=== PATIENT | female | born 1955 | race Asian ===

== ENCOUNTER 2018-04-02 07:26 | Outpatient (CLI) | payer OTHER | END 2018-04-02 07:27 | disposition short-term general hospital (02) | LOC: EMS 07:26 | PROVIDERS: ATTEND Surgery | DX: R07.9 Chest pain, unspecified (principal) | CPT/HCPCS: A0425; A0427 ==

== ENCOUNTER 2018-07-23 20:15 | Outpatient (CLI) | payer OTHER | END 2018-07-23 20:16 | disposition critical access hospital (66) | LOC: EMS 20:15 | PROVIDERS: ATTEND Surgery | DX: R29.810 Facial weakness (principal); R53.1 Weakness | CPT/HCPCS: A0425; A0427 ==

== ENCOUNTER 2018-07-23 20:36 | Emergency (ER) | payer OTHER ==
--- NOTE | 2018-07-23 20:39 | ED Physician Documentation ---
PD HPI FOCAL NEURO - Stated complaint Stated Complaint: STROKE - Chief complaint Chief Complaint: Neuro - History obtained from History obtained from: Patient, Family - History of Present Illness Timing - onset: Enter time (20:00), Today Timing - details: Abrupt onset Time of symptom onset unknown: Time of onset unknown (20:00) Severity of deficit: Moderate Weakness: Face, Arm, Hand, Leg, Foot, Left Associated symptoms: Fall. No: Headache, Nausea / vomiting, Seizure, Chest pain, Neck pain, Back pain Contributing factors: negative: Anticoagulated, Atrial fibrillation Baseline status: positive: A&OX3, ambulatory, indep Recently seen: Not recently seen - Additional information Additional information: boyfriend was getting ready for bed with patient; patient went into adjacent room and boyfriend heard the sound of a chair being knocked over. He immediately checked on patient and found her on the floor next to the chair. This was at 8 PM, and she was baseline just 1-2 minutes prior. She was awake and responding but had left-sided weakness (arm, leg) including left facial droop and thus he called 911. Review of Systems Constitutional: reports: Reviewed and negative Eyes: reports: Reviewed and negative Ears: reports: Reviewed and negative Nose: reports: Reviewed and negative Throat: reports: Reviewed and negative Cardiac: reports: Reviewed and negative Respiratory: reports: Reviewed and negative GI: reports: Reviewed and negative : reports: Reviewed and negative Skin: reports: Reviewed and negative Musculoskeletal: reports: Reviewed and negative Neurologic: reports: Focal weakness, Difficulty speaking. denies: Generalized weakness, Numbness, Syncope PD PAST MEDICAL HISTORY - Past Medical History Past Medical History: Yes Cardiovascular: Hypertension, High cholesterol - Past Surgical History Past Surgical History: Yes Cardiovascular: Pacemaker - Present Medications Home Medications: Ambulatory Orders Medication Instructions Recorded Confirmed Aspirin Chewable [St Kit 81 mg PO DAILY 06/25/16 06/25/16 Aspirin] Atorvastatin Calcium 20 mg PO 06/25/16 Furosemide [Lasix] 20 mg PO DAILY 06/25/16 06/25/16 Magnesium Oxide [Magnesium] 1 cap PO DAILY 07/23/18 07/23/18 Metoprolol Succinate [Toprol Xl] 1 tab PO BID 07/23/18 07/23/18 Omeprazole 1 tab PO DAILY 07/23/18 07/23/18 - Allergies Allergies/Adverse Reactions: Allergies Allergy/AdvReac Type Severity Reaction Status Date / Time morphine Allergy Rash Verified 07/23/18 20:52 sulfamethoxazole Allergy Rash Verified 07/23/18 20:52 [From ] trimethoprim [From ] Allergy Rash Verified 07/23/18 20:52 - Living Situation Living Situation: reports: With spouse/s.o. Living Arrangement: reports: At home - Social History Does the pt smoke?: No PD ED PE NORMAL - Vitals Vital signs reviewed: Yes - General General: Alert and oriented X 3, No acute distress, Well developed/nourished - HEENT HEENT: PERRL, Other (small, midline forehead hematoma without bony step off or tenderness to palpation) - Neck Neck: No bony TTP - Cardiac Cardiac: RRR, No murmur - Respiratory Respiratory: No respiratory distress, Clear bilaterally - Abdomen Abdomen: Soft, Non tender - Derm Derm: Normal color, Warm and dry - Extremities Extremities: No edema - Neuro Eye Opening: Spontaneous Motor: Obeys Commands Verbal: Oriented GCS Score: 15 PD ED PE EXPANDED - HEENT HEENT: Gaze palsy - Neuro Neuro: Weakness, Left face, LUE, LLE, CN deficit (right gaze preference; cannot track beyond midline to left), PERRL, Dysarthria. No: Dyscongugate gaze NIHSS - Time Time: 21:00 - Level of Consciousness Level of consciousness: (0) Alert, Keenly responsive LOC Questions: (0) Answers both Q's correct LOC Commands: (0) Performs both correctly - Gaze Best Gaze: (1) Partial gaze palsy - Visual Visual: (1) Partial hemianopia - Facial Palsy Facial Palsy: (2) Partial paralysis - Motor Arms (both separate) Motor Arm (right): (0) No drift Motor Arm (left): (3) No effort against gravity - Motor Legs (both separate) Motor Leg (right): (0) No drift Motor Leg (left): (3) No effort against gravity - Limb Ataxia Limb Ataxia: (1) Present in 1 limb - Sensory Sensory: (0) Normal - Best Language Best Language: (0) No aphasia - Dysarthria Dysarthria: (1) [id number] dysarthria - Extinction and Inattention (formally neg Extinction and inattention: (1) Visual,tactile,auditory,spatial, or personal inattention - Total Score/Results Total Score/Result: 13 Results - Vitals Vitals: Vital Signs - 24 hr 07/23/18 07/23/18 07/23/18 20:45 21:04 21:42 Temperature 36.6 C Heart Rate 60 60 60 Respiratory 20 17 16 Rate Blood Pressure 131/62 H 130/74 140/71 H O2 Saturation 99 98 98 07/23/18 21:47 Temperature Heart Rate 63 Respiratory 16 Rate Blood Pressure O2 Saturation 94 Oxygen O2 Source Room air - EKG (time done) No standard instances Rate: Rate (enter#) (60) Rhythm: Paced [place]: LAD Ischemia: Normal ST segments - Labs Labs: Laboratory Tests 07/23/18 07/23/18 07/23/18 20:45 20:45 20:45 WBC 11.5 H RBC 4.66 Hgb 14.7 Hct 45.6 MCV 97.9 MCH 31.4 H MCHC 32.1 RDW 14.0 Plt Count 171 MPV 8.1 Neut # (Auto) Not Reportable Lymph # (Auto) Not Reportable [place] # (Auto) Not Reportable Eos # (Auto) Not Reportable Baso # (Auto) Not Reportable Absolute Nucleated RBC Not Reportable Total Counted 100 Band Neuts % (Manual) 0 Reactive Lymphs % (Man) 1 Abnorm Lymph % (Manual) 0 Metamyelocytes % 1 H Nucleated RBC % Not Reportable Neutrophils # (Manual) 4.6 Lymphocytes # (Manual) 6.2 H Monocytes # (Manual) 0.6 Eosinophils # (Manual) 0.0 Basophils # (Manual) 0.0 Differential Comment MANUAL DIFFERENTIAL Platelet Estimate NORMAL (130-450,000) Platelet Morphology NORMAL APPEARANCE RBC Morph Micro Appear NORMAL APPEARANCE PT 11.7 INR 1.0 APTT 27.5 Sodium 138 Potassium 3.4 L Chloride 103 Carbon Dioxide 26 Anion Gap 9.0 BUN 25 H Creatinine 1.0 Estimated GFR (MDRD) 56 L Glucose 121 H Calcium 9.1 Troponin I 07/23/18 20:45 WBC RBC Hgb Hct MCV MCH MCHC RDW Plt Count MPV Neut # (Auto) Lymph # (Auto) [place] # (Auto) Eos # (Auto) Baso # (Auto) Absolute Nucleated RBC Total Counted Band Neuts % (Manual) Reactive Lymphs % (Man) Abnorm Lymph % (Manual) Metamyelocytes % Nucleated RBC % Neutrophils # (Manual) Lymphocytes # (Manual) Monocytes # (Manual) Eosinophils # (Manual) Basophils # (Manual) Differential Comment Platelet Estimate Platelet Morphology RBC Morph Micro Appear PT INR APTT Sodium Potassium Chloride Carbon Dioxide Anion Gap BUN Creatinine Estimated GFR (MDRD) Glucose Calcium Troponin I < 0.04 - Rads (name of study) CT head Radiology: Prelim report reviewed, See rad report chest xray Radiology: Prelim report reviewed, See rad report PD MEDICAL DECISION MAKING - ED course Complexity details: reviewed results, re-evaluated patient, considered dif ferential, d/w patient, d/w family ED course: D/W Dr. Foley (neurology at [facility]). She recommends alteplase and I agree with this recommendation. Telestroke not performed, as the presentation and CT result are strongly s/o thrombotic CVA and telestroke would likely delay treatment and not alter course of action. I recontacted Dr. Foley when I noticed forehead hematoma that I did not see on initial exam; it is visible on CT, but there is no evidence of intracranial bleeding. She recommends proceeding with tPA (alteplase) and I agree with this recommendation. Shortly before patient left ED with airlift crew, left facial swelling was noted. Neurologic exam and mental status remain unchanged. The RN had attempted to place a pressure dressing on the forehead, but apparently it would not stay in place and gauze was placed with tape. I was able to place MICHAEL wrap that applied pressure to the forehead hematoma. - Critical Care Time(min): 60 Time Includes: Direct patient care, Reassess patient, Document care, Coordinate care, Medical consult, See progress note Data interpretation: Labs, Pulse ox, CXR, See progress note Procedures included in critical care time: See progress note Procedures excluded from critical care time: See progress note - TPA CVA checklist Inclusion crititeria: positive: Sig neuro deficit, CT no bleed, Onset know < 4.5 hr Absolute contraindications: negative: SBP>185 DBP>110 s/p tx, CT shows bleed, CT shows major est CVA, Platelets <100K, PTT > 40, INR >1.7, Known bleeding disorder, Surgery/trauma < 15 days, Seizure at onset, Internal bleed < 22 days, Brain/spine surg < 3 m, Head trauma < 3 m, CVA < 3 months, Any hx ICH, Any hx brain aneurysm, Any hx brain AVM, Any hx brain tumor, Suspect SAH Relative contraindications: negative: Too severe (NIHSS>22), Too mild, Rapid improvement, Glusose <50 >400, Life expectancy < 1 yr, Severe comorbid illness, Bacterial endocarditis, Severe hepatic dz, Severe renal dz, Hemorrhagic eye condition, Septic thrombophlebitis, Infected AV shunt, On coumadin, , Advanced age Departure - Departure Disposition: 02 Transfer Acute Care Hosp Clinical Impression: Cerebrovascular accident (CVA) Qualifiers: CVA mechanism: thrombosis Precerebral and cerebral artery: middle cerebral artery Laterality of affected vessel: right Qualified Code(s): I63.311 - Ce rebral infarction due to thrombosis of right middle cerebral artery Condition: Serious Discharge Date/Time: 07/23/18 22:45
[2018-07-23 20:53] LABS: BASOPHILS % (AUTO) 0.4 %; EOSINOPHILS % (AUTO) 2.4 %; HGB - HEMOGLOBIN 14.7 g/dL (12.0-16.0); LYMPHOCYTES % (AUTO) 50.3 %; MEAN CORPUSCULAR HEMOGLOBIN 31.4 pg (27.0-31.0); MEAN CORPUSCULAR HGB CONC 32.1 g/dL (32.0-36.0); MEAN CORPUSCULAR VOLUME 97.9 fL (81.0-99.0); MEAN PLATELET VOLUME 8.1 fL (7.9-10.8); MONOCYTES % (AUTO) 6.1 %; NEUTROPHILS % (AUTO) 40.8 %; PLT - PLATELET COUNT 171 10^3/uL (130-450); RED BLOOD COUNT 4.66 10^6/uL (4.20-5.40); WHITE BLOOD COUNT 11.5 x10^3/uL (4.8-10.8)
[2018-07-23 20:55] LABS: ABNORMAL LYMPHS % (MANUAL) 0 %; BAND NEUTROPHILS % (MANUAL) 0 %
[2018-07-23 20:57] LABS: PT - PROTHROMBIN TIME 11.7 secs (9.9-12.6)
[2018-07-23 21:03] LABS: CALCIUM 9.1 mg/dL (8.5-10.3)
--- NOTE | 2018-07-23 21:05 | CT Report ---
Reason: left-sided weakness Procedure Date: 07/23/2018 Accession Number: [id number] / [id number] Procedure: CT - Head W/O Stroke Protocol CPT Code: FULL RESULT: EXAM: CT HEAD WITHOUT CONTRAST. EXAM DATE: 07/23/2018 08:53 PM. CLINICAL HISTORY: Left-sided weakness. COMPARISON: Head 06/09/2007 8:15 AM. TECHNIQUE: Multiaxial CT images were obtained from the foramen magnum to the vertex. Reformats: Sagittal and coronal. IV contrast: None. In accordance with CT protocol optimization, one or more of the following dose reduction techniques were utilized for this exam: automated exposure control, adjustment of mA and/or KV based on patient size, or use of iterative reconstructive technique. FINDINGS: Parenchyma: 3 mm diameter linear high density in the area of the M1 segment right middle cerebral artery. No intraparenchymal hemorrhage. No evidence of mass, midline shift, or CT findings of acute infarction. Arias-white differentiation is distinct. Extraaxial Spaces: Normal for age. No subdural or epidural collections identified. Ventricles: Normal in size and position. Sinuses and Orbits: Imaged paranasal sinuses, orbits, and mastoids show no significant abnormality. Bones: No evidence of fracture or calvarial defect. Other: Central forehead edema. IMPRESSION: Possible acute thrombus within the M1 segment right middle cerebral artery. Recommend further evaluation with head and neck CTA. RADIA The above findings were discussed with Severiano Mayorga by Dr. Ro Gold at 21:03 hrs on 07/23/18. ADDENDUM: 07/23/18 21:[address] Natacha Foley at 2116, 07/23/2018.
--- NOTE | 2018-07-23 21:10 | XRAY Report ---
Reason: chest pain Procedure Date: 07/23/2018 Accession Number: [id number] / [id number] Procedure: XR - Chest 1 View X-Ray CPT Code: 69656 FULL RESULT: EXAM: CHEST RADIOGRAPHY EXAM DATE: 07/23/2018 08:58 PM. CLINICAL HISTORY: Chest pain. COMPARISON: None. TECHNIQUE: 1 view. FINDINGS: Lungs/Pleura: No focal opacities evident. No pleural effusion. No pneumothorax. Mediastinum: Cardiomegaly. Left subclavian 2-lead pacemaker. Other: None. IMPRESSION: Cardiomegaly, but no evidence of acute cardiopulmonary disease. RADIA
[2018-07-23] MEDS ORDERED: ALTEPLASE 100 MG in WATER FOR INJECTION,STERILE 100 ML IV STA (21:16)
[2018-07-23] MEDS ORDERED: ALTEPLASE 100 MG VIAL ONE (21:25)
[2018-07-23 21:33] LABS: DIFFERENTIAL COMMENT MANUAL DIFFERENTIAL; LYMPHOCYTES # (MANUAL) 6.2 10^3/uL (1.5-3.5); LYMPHOCYTES % (MANUAL) 53 %; METAMYELOCYTES % (MANUAL) 1 %; MONOCYTES # (MANUAL) 0.6 10^3/uL (0.0-1.0); NEUTROPHILS # (MANUAL) 4.6 10^3/uL (1.5-6.6); NEUTROPHILS % (MANUAL) 40 %; PLATELET ESTIMATE, MANUAL NORMAL (130-450,000) (NORMAL); PLATELET MORPHOLOGY NORMAL APPEARANCE (NORMAL); RBC MORPHOLOGY (MULTIPLE) NORMAL APPEARANCE (NORMAL)
[2018-07-23 21:44] VITALS: BP 140/71
== END 2018-07-23 22:45 | disposition short-term general hospital (02) ==
LOC: EDUNIT# → ED 20:36
DX: I63.311 Cerebral infarction due to thrombosis of right middle cerebral artery (principal); S00.83XA Contusion of other part of head, initial encounter; W18.30XA Fall on same level, unspecified, initial encounter; R94.31 Abnormal electrocardiogram [ECG] [EKG]; I10 Essential (primary) hypertension; Z95.0 Presence of cardiac pacemaker; Z79.82 Long term (current) use of aspirin
CPT/HCPCS: 36415; 70450; 71045; 80048; 84484; 85025; 85610; 85730; 93005; 96365; 99291; J2997; 99285

== ENCOUNTER 2018-09-23 09:57 | Emergency (ER) | payer OTHER ==
[2018-09-23 10:43] LABS: BASOPHILS % (AUTO) 0.7 %; EOSINOPHILS # (AUTO) 0.1 10^3/uL (0.0-0.7); EOSINOPHILS % (AUTO) 1.6 %; HGB - HEMOGLOBIN 13.9 g/dL (12.0-16.0); LYMPHOCYTES # (AUTO) 2.6 10^3/uL (1.5-3.5); LYMPHOCYTES % (AUTO) 38.3 %; MEAN CORPUSCULAR HEMOGLOBIN 32.6 pg (27.0-31.0); MEAN CORPUSCULAR HGB CONC 33.4 g/dL (32.0-36.0); MEAN CORPUSCULAR VOLUME 97.7 fL (81.0-99.0); MEAN PLATELET VOLUME 7.8 fL (7.9-10.8); MONOCYTES # (AUTO) 0.5 10^3/uL (0.0-1.0); MONOCYTES % (AUTO) 7.6 %; NEUTROPHILS # (AUTO) 3.5 10^3/uL (1.5-6.6); NEUTROPHILS % (AUTO) 51.8 %; PLT - PLATELET COUNT 200 10^3/uL (130-450); RED BLOOD COUNT 4.28 10^6/uL (4.20-5.40); RED CELL DISTRIBUTION WIDTH 14.7 % (12.0-15.0); WHITE BLOOD COUNT 6.8 x10^3/uL (4.8-10.8)
[2018-09-23 10:45] LABS: BILIRUBIN,URINE NEGATIVE (NEGATIVE); GLUCOSE, URINE (UA) 100 mg/dL (NEGATIVE); KETONES,URINE (UA) TRACE mg/dL (NEGATIVE); LEUKOCYTE ESTERASE, URINE NEGATIVE (NEGATIVE); NITRITE,URINE NEGATIVE (NEGATIVE); OCCULT BLOOD,URINE NEGATIVE (NEGATIVE); PROTEIN,URINE NEGATIVE (NEGATIVE); UROBILINOGEN,URINE 0.2 (NORMAL) E.U./dL (NORMAL)
[2018-09-23 10:47] LABS: CLARITY,URINE CLEAR (CLEAR)
[2018-09-23] MEDS ORDERED: KETOROLAC 30 MG/ML VIAL IVP STA (10:48)
[2018-09-23 10:56] LABS: ALBUMIN 4.3 g/dL (3.2-5.5); ALBUMIN/GLOBULIN RATIO 1.4 (1.0-2.2); BILIRUBIN,TOTAL 0.7 mg/dL (0.2-1.0); CALCIUM 9.5 mg/dL (8.5-10.3); CREATININE 0.6 mg/dL (0.4-1.0); TOTAL PROTEIN 7.4 g/dL (6.7-8.2)
[2018-09-23] MEDS ORDERED: IOVERSOL 320 100 ML VIAL IVP ONE ×2 (10:56→11:59)
--- NOTE | 2018-09-23 11:03 | ED Physician Documentation ---
PD HPI ABD PAIN - Stated complaint Stated Complaint: ABD PX - Chief complaint Chief Complaint: Abd Pain - History obtained from History obtained from: Patient, Family - History of Present Illness Timing - onset: How many weeks ago (1) Timing - duration: Weeks (1) Timing - details: Gradual onset Pain level max: 6 Pain level now: 4 Quality: Aching, Pain Location: LLQ Radiation: Other (non-radiating) Improved by: Laying still Worsened by: Moving, Palpation Associated symptoms: Constipation. No: Fever, Nausea, Vomiting, Hematemesis, Diarrhea, Melena, Hematochezia Similar symptoms before: Diagnosis (states feels like prior kidney stones) Recently seen: Not recently seen Review of Systems Constitutional: denies: Fever, Chills Ears: denies: Ear pain Nose: denies: Rhinorrhea / runny nose, Congestion Throat: denies: Sore throat Cardiac: denies: Chest pain / pressure Respiratory: denies: Cough GI: denies: Vomiting Skin: denies: Rash Musculoskeletal: denies: Neck pain, Back pain Neurologic: denies: Headache PD PAST MEDICAL HISTORY - Past Medical History Cardiovascular: Hypertension, High cholesterol Respiratory: None Neuro: None Endocrine/Autoimmune: Type 2 diabetes GI: GERD 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 : None HEENT: None Musculoskeletal: None Derm: None - Past Surgical History Past Surgical History: Yes Cardiovascular: Pacemaker - Present Medications Home Medications: Ambulatory Orders Medication Instructions Recorded Confirmed Aspirin Chewable [St Kit 81 mg PO DAILY 06/25/16 06/25/16 Aspirin] Atorvastatin Calcium 20 mg PO 06/25/16 Furosemide [Lasix] 20 mg PO DAILY 06/25/16 06/25/16 Magnesium Oxide [Magnesium] 1 cap PO DAILY 07/23/18 07/23/18 Metoprolol Succinate [Toprol Xl] 1 tab PO BID 07/23/18 07/23/18 Omeprazole 1 tab PO DAILY 07/23/18 07/23/18 Enoxaparin [Lovenox] 40 mg SUBQ Q24H 09/23/18 09/23/18 Hydrocodone/Acetaminophen 1 - 2 each PO Q6H PRN #7 tablet 09/23/18 [Hydrocodon-Acetaminophen 5-325] Insulin Glargine [Lantus Solostar] 0 unit SQ DAILY 09/23/18 09/23/18 - Allergies Allergies/Adverse Reactions: Allergies Allergy/AdvReac Type Severity Reaction Status Date / Time morphine Allergy Rash Verified 07/23/18 20:52 sulfamethoxazole Allergy Rash Verified 07/23/18 20:52 [From ] trimethoprim [From ] Allergy Rash Verified 09/23/18 10:03 - Social History Does the pt smoke?: No Smoking Status: Current every day smoker Does the pt drink ETOH?: No Does the pt have substance abuse?: No - Immunizations Immunizations are current?: Yes - POLST Patient has POLST: No PD ED PE NORMAL - Vitals Vital signs reviewed: Yes - General General: Alert and oriented X 3, No acute distress, Well developed/nourished - HEENT HEENT: PERRL, Moist mucous membranes - Neck Neck: Supple, no meningeal sign - Cardiac Cardiac: RRR, Strong equal pulses - Respiratory Respiratory: No respiratory distress, Clear bilaterally - Abdomen Abdomen: Soft, Non distended, Other (Mild tenderness to palpation left lower quadrant without peritoneal signs) - Back Back: No spinal TTP - Derm Derm: Warm and dry - Extremities Extremities: No deformity - Neuro Neuro: Alert and oriented X 3 - Psych Psych: Normal mood, Normal affect Results - Vitals Vitals: Vital Signs - 24 hr 09/23/18 09/23/18 10:01 12:01 Temperature 37 C 37.1 C Heart Rate 64 60 Respiratory 16 20 Rate Blood Pressure 112/70 112/53 L O2 Saturation 99 100 Oxygen O2 Source Room air - Labs Labs: Laboratory Tests 09/23/18 09/23/18 09/23/18 10:15 10:39 10:39 WBC 6.8 RBC 4.28 Hgb 13.9 Hct 41.8 MCV 97.7 MCH 32.6 H MCHC 33.4 RDW 14.7 Plt Count 200 MPV 7.8 L Neut # (Auto) 3.5 Lymph # (Auto) 2.6 [place] # (Auto) 0.5 Eos # (Auto) 0.1 Baso # (Auto) 0.0 Absolute Nucleated RBC 0.00 Nucleated RBC % 0.0 Sodium 138 Potassium 3.9 Chloride 104 Carbon Dioxide 24 Anion Gap 10.0 BUN 24 H Creatinine 0.6 Estimated GFR (MDRD) 102 Glucose 98 Calcium 9.5 Total Bilirubin 0.7 AST 27 ALT 24 Alkaline Phosphatase 84 Total Protein 7.4 Albumin 4.3 Globulin 3.1 Albumin/Globulin Ratio 1.4 Lipase 26 Urine Color DARK YELLOW Urine Clarity CLEAR Urine pH 6.0 Ur Specific [place] >=1.030 H Urine Protein NEGATIVE Urine Glucose (UA) 100 H Urine Ketones TRACE Urine Occult Blood NEGATIVE Urine Nitrite NEGATIVE Urine Bilirubin NEGATIVE Urine Urobilinogen 0.2 (NORMAL) Ur Leukocyte Esterase NEGATIVE Ur Microscopic Review NOT INDICATED Urine Culture Comments NOT INDICATED - Rads (name of study) CT abdomen pelvis Radiology: Prelim report reviewed, EMP read contemporaneously, See rad report ( Normal appendix. 2. Diverticulosis without inflammatory changes. 3. No abnormality expanding the patient's symptoms. ) PD MEDICAL DECISION MAKING - ED course Complexity details: reviewed results, re-evaluated patient, considered differential, d/w patient, d/w family ED course: 63-year-old female with left lower quadrant abdominal pain of unclear etiology. Will trial on pain medications for a few days and follow-up closely with her doctor. She is very well-appearing, nontoxic. Afebrile. No acute findings on CT scan or laboratory abnormalities to explain her symptoms. Patient and family counseled regarding signs and symptoms for which I believe and urgent re- evaluation would be necessary. Patient with good understanding of and agreement to plan and is comfortable going home at this time This document was made in part using voice recognition software. While efforts are made to proofread this document, sound alike and grammatical errors may occur. Departure - Departure Disposition: 01 Home, Self Care Clinical Impression: Abdominal pain Qualifiers: Abdominal location: left lower quadrant Qualified Code(s): R10.32 - Left lower quadrant pain Condition: Good Instructions: ED Abdominal Pain Unkn Cause Follow-Up: YAZAN MARY MD [Primary Care Provider] - Within 1 week Prescriptions: Hydrocodone/Acetaminophen [Hydrocodon-Acetaminophen 5-325] 1 - 2 each PO Q6H PRN #7 tablet PRN Reason: pain Comments: The cause of your symptoms is unclear today. Your tests are normal. Follow-up with your doctor for further care. Do not drink alcohol or drive while on narcotic pain medicine. Note that many narcotic pain relievers also contain tylenol/acetaminophen. Please ensure that your total dose of acetaminophen from all sources does not exceed 3 grams (3000mg) per day. You may constipated on this medication, take a stool softener such as "Colace" twice a day while you are on it. Also recommend a [id number] laxative such as senna or MiraLAX any day that you do not have a bowel movement. If you received narcotic pain medication in the emergency department, do not drive or operate machinery for the next 24 hours. Discharge Date/Time: 09/23/18 13:06
[2018-09-23 12:06] VITALS: BP 112/53
--- NOTE | 2018-09-23 12:54 | CT Report ---
Reason: LLQ abd pain Procedure Date: 09/23/2018 Accession Number: [id number] / [id number] Procedure: CT - Abdomen/Pelvis W CPT Code: FULL RESULT: EXAM: CT ABDOMEN AND PELVIS EXAM DATE: 09/23/2018 11:56 AM. CLINICAL HISTORY: LLQ abd pain. COMPARISONS: CTA ABDOMEN / PELVIS WITHOUT AND WITH CONTRAST 07/30/2018 2:39 PM. TECHNIQUE: Routine helical CT imaging was performed through the abdomen and pelvis. IV contrast: OPTI 320 90mL. Enteric contrast: No. Reconstructions: Coronal and sagittal. In accordance with CT protocol optimization, one or more of the following dose reduction techniques were utilized for this exam: automated exposure control, adjustment of mA and/or KV based on patient size, or use of iterative reconstructive technique. FINDINGS: Lung Bases: Cardiac enlargement noted. No pericardial or pleural effusion. Multilead cardiac device are present in the right atrium and right ventricle. Liver: Normal. No masses. Gallbladder/Bile Ducts: Unremarkable. Spleen: Normal. Pancreas: Normal. Adrenal Glands: Normal. Kidneys: Normal. No masses or hydronephrosis. Peritoneal Cavity/Bowel: Normal. No free fluid, free air or adenopathy. No masses or acute inflammatory process. There are multiple diverticula seen which most severely affect the sigmoid colon. No wall thickening or adjacent inflammation seen. No obstruction noted. The appendix is well visualized and normal.Left colon is medially displaced. Stomach and small bowel are grossly unremarkable. Pelvic Organs: Normal. The bladder and visualized pelvic organs are within normal limits. Vasculature: Patchy atheromatous plaques are present in the abdominal aorta and branch vessels. No aneurysm. Normal IVC. Bones: No significant abnormality. Other: None. IMPRESSION: 1. Normal appendix. 2. Diverticulosis without inflammatory changes. 3. No abnormality expanding the patient's symptoms. RADIA
== END 2018-09-23 13:06 | disposition home or self-care (01) ==
LOC: ED 09:57
DX: R10.32 Left lower quadrant pain (principal); I10 Essential (primary) hypertension; E78.00 Pure hypercholesterolemia, unspecified; E11.9 Type 2 diabetes mellitus without complications; Z79.4 Long term (current) use of insulin; Z95.0 Presence of cardiac pacemaker; Z79.82 Long term (current) use of aspirin
CPT/HCPCS: 36415; 74177; 80053; 81003; 83690; 85025; 96374; 99283; Q9967; 81001; 87086

== ENCOUNTER 2018-10-30 14:43 | Emergency (ER) | payer OTHER ==
[2018-10-30] MEDS ORDERED: HYDROcod/ACETAM 5/325 MG TABLET PO STA (15:08)
--- NOTE | 2018-10-30 15:10 | ED Physician Documentation ---
PD HPI BACK INJURY - Stated complaint Stated Complaint: FALL, BACK PX - History obtained from History obtained from: Patient, Family - History of Present Illness Location: Lower Type of injury: Fall Where injury occurred: Home Timing - onset: Today Timing - duration: Minutes Timing - details: Abrupt onset, Still present Quality: Pain, Spasm, Sharp Improved by: Rest Worsened by: Moving, Palpating Associated symptoms: No: Fever, Weakness, Numbness, Incontinent of urine, Unable to urinate, Hematuria, Incontinent of stool Contributing factors: No: Anticoagulated Similar symptoms before: Has not had sx before Recently seen: Not recently seen - Additional information Additional information: 63-year-old female with a history of CVA with persistent left-sided weakness was in her home today using her walker to get to the bathroom when she tripped on the rug and fell backwards directly onto her back. She complains of pain in the lower lumbar spine centrally. She has pain with movement she can get into a comfortable position if she is not moving. Review of Systems Constitutional: denies: Fever, Chills Eyes: denies: Decreased vision Ears: denies: Ear pain Nose: denies: Congestion Throat: denies: Sore throat Cardiac: denies: Chest pain / pressure Respiratory: denies: Dyspnea, Cough GI: denies: Abdominal Pain, Nausea, Vomiting : denies: Dysuria, Frequency Skin: denies: Rash Musculoskeletal: reports: Back pain. 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 : None HEENT: None Musculoskeletal: None Derm: None - Past Surgical History Past Surgical History: Yes Cardiovascular: Pacemaker - Present Medications Home Medications: Ambulatory Orders Medication Instructions Recorded Confirmed Aspirin Chewable [St Kit 81 mg PO DAILY 06/25/16 06/25/16 Aspirin] Atorvastatin Calcium 20 mg PO 06/25/16 Furosemide [Lasix] 20 mg PO DAILY 06/25/16 06/25/16 Magnesium Oxide [Magnesium] 1 cap PO DAILY 07/23/18 07/23/18 Metoprolol Succinate [Toprol Xl] 1 tab PO BID 07/23/18 07/23/18 Omeprazole 1 tab PO DAILY 07/23/18 07/23/18 Enoxaparin [Lovenox] 40 mg SUBQ Q24H 09/23/18 09/23/18 Hydrocodone/Acetaminophen 1 - 2 each PO Q6H PRN #7 tablet 09/23/18 [Hydrocodon-Acetaminophen 5-325] Insulin Glargine [Lantus Solostar] 0 unit SQ DAILY 09/23/18 09/23/18 Cyclobenzaprine [Flexeril] 10 mg PO TID PRN #20 tablet 10/30/18 Hydrocodone/Acetaminophen 1 - 2 each PO Q6H PRN #14 tablet 10/30/18 [Hydrocodon-Acetaminophen 5-325] - Allergies Allergies/Adverse Reactions: Allergies Allergy/AdvReac Type Severity Reaction Status Date / Time morphine Allergy Rash Verified 07/23/18 20:52 sulfamethoxazole Allergy Rash Verified 07/23/18 20:52 [From ] trimethoprim [From ] Allergy Rash Verified 09/23/18 10:03 - Social History Does the pt smoke?: No Smoking Status: Current every day smoker Does the pt drink ETOH?: No Does the pt have substance abuse?: No - Immunizations Immunizations are current?: Yes - POLST Patient has POLST: No PD ED PE NORMAL - Vitals Vital signs reviewed: Yes (normal ) - General General: Alert and oriented X 3, No acute distress, Well developed/nourished - HEENT HEENT: Atraumatic, PERRL, EOMI - Respiratory Respiratory: No respiratory distress - Back Back: No CVA TTP, Other (There is specific point tenderness to the lower lumbar spine centrally. There is not tenderness over the sacrum and coccyx. 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 No gross fracture or subluxation of lumbar spine), EMP read indepedently, See rad report PD MEDICAL DECISION MAKING - ED course Complexity details: reviewed results, re-evaluated patient, considered sina chantel, d/w patient, d/w family ED course: 63 y/o female with a lumbar contusion and back pain. She has no evidence of fracture of the lumbar spine on x-ray examination. She is administered hydrocodone when she arrives to the emergency department she has only minimal pain relief with this and she is administered Dilaudid a milligram IM and 4 of Zofran TL. Departure - Departure Disposition: Home, Self Care Clinical Impression: Lumbar contusion Qualifiers: Encounter type: initial encounter Qualified Code(s): S30.0XXA - Contusion of lower back and pelvis, initial encounter Condition: Stable Instructions: ED Contusion Back, ED Sprain Strain Lumbar Follow-Up: YAZAN MARY MD [Primary Care Provider] - Prescriptions: Cyclobenzaprine [Flexeril] 10 mg PO TID PRN #20 tablet PRN Reason: Spasms Hydrocodone/Acetaminophen [Hydrocodon-Acetaminophen 5-325] 1 - 2 each PO Q6H PRN #14 tablet PRN Reason: pain
[2018-10-30] MEDS ORDERED: HYDROmorphone 1 MG/ML CARPUJECT IM STA (16:26)
[2018-10-30] MEDS ORDERED: ONDANSETRON ODT 4 MG TABLET TL STA (16:26)
--- NOTE | 2018-10-30 16:33 | XRAY Report ---
Reason: fall lower back pain with movement Procedure Date: 10/30/2018 Accession Number: [id number] / [id number] Procedure: XR - Lumbar Spine 2 View CPT Code: FULL RESULT: EXAM: LUMBOSACRAL SPINE RADIOGRAPHY EXAM DATE: 10/30/2018 04:18 PM. CLINICAL HISTORY: Fall lower back pain with movement. COMPARISONS: ABDOMEN/PELVIS W/ 09/23/2018 11:42 AM. TECHNIQUE: 2 views. FINDINGS: Alignment: No subluxation or scoliosis. Bones: Five [id number] lumbar vertebral bodies are present. Visualization limited by demineralization and body habitus. Vertebral bodies appear normal in height. No fracture is identified. Disks: There is disk height loss at L5-S1 with a disk space is not well seen. Facets: There is multilevel facet degenerative disease and sclerosis with facet joints not optimally seen. Sacroiliac Joints: Unremarkable. Soft Tissues: No dilated bowel loops. IMPRESSION: 1. No gross fracture or subluxation of lumbar spine. RADIA
[2018-10-30 16:54] VITALS: BP 145/75
== END 2018-10-30 16:53 | disposition home or self-care (01) ==
LOC: ED 14:43
DX: S30.0XXA Contusion of lower back and pelvis, initial encounter (principal); W01.0XXA Fall on same level from slipping, tripping and stumbling without subsequent striking against object, initial encounter; Y93.89 Activity, other specified; Y92.009 Unspecified place in unspecified non-institutional (private) residence as the place of occurrence of the external cause; I69.354 Hemiplegia and hemiparesis following cerebral infarction affecting left non-dominant side; F17.200 Nicotine dependence, unspecified, uncomplicated; Z79.4 Long term (current) use of insulin; Z95.0 Presence of cardiac pacemaker
CPT/HCPCS: 72100; 96372; 99283; A9270; J1170; Q0162

== ENCOUNTER 2023-06-27 12:59 | Emergency (ER) | payer MEDICARE, OTHER ==
[2023-06-27 13:23] VITALS: BP 117/73; O2SAT 97
--- NOTE | 2023-06-27 14:01 | ED Physician Documentation ---
PD HPI URI - Stated complaint Stated Complaint: LT EAR PX - Chief complaint Chief Complaint: Heent - History obtained from History obtained from: Patient, Family - History of Present Illness Timing - onset: How many days ago (2) Timing duration: Days (2) Timing details: Gradual onset Pain level max: 6 Pain level now: 5 Associated symptoms: Ear pain, Nasal congestion, Rhinorrhea, Dry cough Contributing factors: Sick contact Recently seen: Not recently seen - Additional information Additional information: 68-year-old female history of a stroke presents to the emergency department with left ear drainage and a mild cough for the past 2 days. No fevers. No sweats. Does have rhinorrhea and congestion. She has left-sided deficits from her stroke. Nothing seems to make it better or worse. No recent travel. Has not taken a home COVID test. Review of Systems Constitutional: denies: Fever, Chills Throat: denies: Sore throat Cardiac: denies: Chest pain / pressure, Palpitations Respiratory: reports: Cough. 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 : None HEENT: None Musculoskeletal: None Derm: None - Past Surgical History Past Surgical History: Yes Cardiovascular: Pacemaker - Present Medications Home Medications: Ambulatory Orders Medication Instructions Recorded Confirmed Aspirin Chewable [St Kit 81 mg PO DAILY 06/25/16 06/25/16 Aspirin] Atorvastatin Calcium 20 mg PO 06/25/16 Furosemide [Lasix] 20 mg PO DAILY 06/25/16 06/25/16 Magnesium Oxide [Magnesium] 1 cap PO DAILY 07/23/18 07/23/18 Metoprolol Succinate [Toprol Xl] 1 tab PO BID 07/23/18 07/23/18 Omeprazole 1 tab PO DAILY 07/23/18 07/23/18 Enoxaparin [Lovenox] 40 mg SUBQ Q24H 09/23/18 09/23/18 Hydrocodone/Acetaminophen 1 - 2 each PO Q6H PRN #7 tablet 09/23/18 [Hydrocodon-Acetaminophen 5-325] Insulin Glargine [Lantus Solostar] 0 unit SQ DAILY 09/23/18 09/23/18 Cyclobenzaprine [Flexeril] 10 mg PO TID PRN #20 tablet 10/30/18 Hydrocodone/Acetaminophen 1 - 2 each PO Q6H PRN #14 tablet 10/30/18 [Hydrocodon-Acetaminophen 5-325] Ciproflox/Dexameth Otic Drops 4 drops LEFTEAR BID #1 each 06/27/23 [Ciprodex] Molnupiravir [Lagevrio (Eua)] 800 mg PO BID #40 cap 06/27/23 - Allergies Allergies/Adverse Reactions: Allergies Allergy/AdvReac Type Severity Reaction Status Date / Time morphine Allergy Rash Verified 07/23/18 20:52 sulfamethoxazole Allergy Rash Verified 07/23/18 20:52 [From ] trimethoprim [From ] Allergy Rash Verified 09/23/18 10:03 - Social History Does the pt smoke?: No Smoking Status: Never smoker Does the pt drink ETOH?: No Does the pt have substance abuse?: No - Immunizations Immunizations are current?: Yes - POLST Patient has POLST: No PD ED PE NORMAL - Vitals Vital signs reviewed: Yes - General General: Alert and oriented X 3, No acute distress - HEENT HEENT: PERRL, Moist mucous membranes, Other (Right ear is normal. There is edema and swelling to the canal of the left ear with mild otorrhea. No visible perforation of the tympanic membrane.) - Neck Neck: Supple, no meningeal sign, No bony TTP, No adenopathy - Cardiac Cardiac: RRR, Strong equal pulses - Respiratory Respiratory: No respiratory distress, Clear bilaterally, Other (No stridor or wheezing) - Abdomen Abdomen: Soft, Non tender, Non distended - Back Back: No CVA TTP, No spinal TTP - Derm Derm: Warm and dry - Extremities Extremities: No edema, No calf tenderness / cord - Neuro Neuro: Alert and oriented X 3 - Psych Psych: Normal mood, Normal affect Results - Vitals Vitals: Vital Signs - 24 hr 06/27/23 13:12 Temperature 36.2 C L Heart Rate 60 Respiratory 16 Rate Blood Pressure 117/73 O2 Saturation 97 Oxygen O2 Source Room air - Labs Labs: Laboratory Tests 06/27/23 14:08 Nasal Adenovirus (PCR) NOT DETECTED Nasal B. parapertussis DNA (PCR) NOT DETECTED Nasal Coronavir 229E PCR NOT DETECTED Nasal Coronavir HKU1 PCR NOT DETECTED Nasal Coronavir NL63 PCR NOT DETECTED Nasal Coronavir OC43 PCR NOT DETECTED Nasal Enterovir/Rhinovir PCR NOT DETECTED Nasal Influenza B PCR NOT DETECTED Nasal Influenza A PCR NOT DETECTED Nasal Parainfluen 1 PCR NOT DETECTED Nasal Parainfluen 2 PCR NOT DETECTED Nasal Parainfluen 3 PCR NOT DETECTED Nasal Parainfluen 4 PCR NOT DETECTED Nasal RSV (PCR) NOT DETECTED Nasal B.pertussis DNA PCR NOT DETECTED Nasal C.pneumoniae (PCR) NOT DETECTED Mihir Human Metapneumo PCR NOT DETECTED Nasal M.pneumoniae (PCR) NOT DETECTED Nasal SARS-CoV-2 (PCR) DETECTED A - Rads (name of study) Chest x-ray Relevant Findings:: Final report received, See rad report PD Medical Decision Making - ED course Complexity details: reviewed results, re-evaluated patient, considered di fferential, d/w patient ED course: Patient with what appears to be a left acute otitis externa. Will place on Ciprodex for this. Chest x-ray does not show any evidence of pneumonia. Respiratory PCR is positive for COVID. I did call the patient and discussed with her her positive COVID test. She would like to be placed on antiviral medication. Due to interactions with her other medications, we will prescribe molnupiravir instead of Paxlovid. Patient is well-appearing, nontoxic. Afebrile. No hypoxia. No respiratory distress. Patient counseled regarding signs and symptoms for which I believe and urgent re-evaluation would be necessary. Patient with good understanding of and agreement to plan and is comfortable going home at this time This document was made in part using voice recognition software. While efforts are made to proofread this document, sound alike and grammatical errors may occur. Departure - Departure Disposition: 01 Home, Self Care Clinical Impression: Viral upper respiratory infection Otitis externa Qualifiers: Otitis externa type: unspecified type Chronicity: acute Laterality: left Qualified Code(s): H60.502 - Unspecified acute noninfective otitis externa, left ear Condition: Good Instructions: ED Viral Syndrome, ED Otitis Externa Follow-Up: Your,doctor in 1 week [Other] Prescriptions: Ciproflox/Dexameth Otic Drops [Ciprodex] 4 drops LEFTEAR BID #1 each Molnupiravir [Lagevrio (Eua)] 800 mg PO BID #40 cap Comments: Your prescription was sent to [facility] in [place]. Your x-ray does not show any evidence of pneumonia. Please use the eardrops to help with the infection o f the left ear. Please return if you worsen. Your viral swab will be back later today, I will call you and if any further treatment is indicated or if the swab is positive for a viral illness. Forms: PCP List Discharge Date/Time: 06/27/23 15:01
--- NOTE | 2023-06-27 14:19 | XRAY Report ---
PROCEDURE: Chest 1 View X-Ray INDICATIONS: cough TECHNIQUE: One view of the chest was acquired. COMPARISON: None. FINDINGS: Surgical changes and devices: Left chest wall pacemaker leads are in the region of right atrium and right ventricle.. Lungs and pleura: No pleural effusions or pneumothorax. Lungs are clear. Mediastinum: Mediastinal contours appear normal. Heart size is enlarged. Bones and chest wall: No suspicious bony lesions. Overlying soft tissues appear unremarkable. IMPRESSION: No acute cardiopulmonary process. Reviewed by: Almas Caal MD on 06/27/2023 2:18 PM PST Approved by: Almas Caal MD on 06/27/2023 2:18 PM PST Station ID: [id number]
[2023-06-27 15:41] LABS: B. PARAPERTUSSIS- RESP PCR PAN NOT DETECTED; CORONAVIRUS 229E-RESP PCR NOT DETECTED; CORONAVIRUS HKU1-RESP PCR NOT DETECTED; CORONAVIRUS NL63-RESP PCR NOT DETECTED; CORONAVIRUS OC43-RESP PCR NOT DETECTED; HUMAN METAPNEUMOVIRUS NOT DETECTED; INFLUENZA A- RESP PCR PANEL NOT DETECTED; INFLUENZA B - RESP PCR PANEL NOT DETECTED; PARAINFLUENZA VIRUS 1 NOT DETECTED; PARAINFLUENZA VIRUS 2 NOT DETECTED; PARAINFLUENZA VIRUS 3 NOT DETECTED; PARAINFLUENZA VIRUS 4 NOT DETECTED; RHINOVIRUS/ENTEROVIRUS NOT DETECTED; RSV- RESP PCR PANEL NOT DETECTED
[2023-06-27 15:42] LABS: B. PERTUSSIS- RESP PCR PANEL NOT DETECTED; C. PNEUMONIAE- RESP PCR PANEL NOT DETECTED; M. PNEUMONIAE- RESP PCR PANEL NOT DETECTED
[2023-06-27 15:45] LABS: SARS-CoV-2 -RESP PCR PANEL DETECTED
== END 2023-06-27 15:01 | disposition home or self-care (01) ==
LOC: ED 12:59
DX: H60.502 Unspecified acute noninfective otitis externa, left ear (principal); U07.1 COVID-19
CPT/HCPCS: 87633; 99283; 99284

== ENCOUNTER 2025-04-26 07:05 | Inpatient (IN) ==
--- NOTE | 2025-04-26 07:48 | ED Physician Documentation ---
PD HPI ABD PAIN Stated complaint Stated Complaint: ABD PX Chief complaint Chief Complaint: Abd Pain History obtained from History obtained from: Patient Additional information Additional information: The patient comes to the emergency department with chief complaint of left lower quadrant abdominal pain. She states has been going on for the last 3 days. No dysuria. No fevers and chills. No nausea. She has no history of diverticulitis. She has had a kidney stone previously. She states she has been constipated and her last bowel movement was a couple weeks ago she thinks. She is on a stool softener but she has been taking her medications because of her pain. Patient denies blood in her stools. No other complaints at this time. Meds/Allgy Home Medications Ambulatory Orders Medication Instructions Recorded Confirmed apixaban 5 mg tablet (Eliquis) 5 mg PO BID 05/17/24 lisinopril 2.5 mg tablet 2.5 mg PO DAILY 04/26/25 metoprolol succinate 25 mg 25 mg PO DAILY 04/27/25 tablet,extended release 24 hr Allergies Allergies Allergy/AdvReac Type Severity Reaction Status Date / Time morphine Allergy Rash Verified 04/26/25 07:21 sulfamethoxazole (From Allergy Rash Verified 04/26/25 07:21 Sept) trimethoprim (From ) Allergy Rash Verified 04/26/25 07:21 PFS Active Problems All Active Problems (Updated 04/30/25 @ 13:51 by Kimberly Flores MD) Fluid overload (Acute) Acute metabolic encephalopathy (Acute) Sacral decubitus ulcer (Acute) Complete gastric outlet obstruction (Acute) Jejunostomy tube present (Acute) Gastrostomy tube present (Acute) Status post exploratory laparotomy (Acute ~04/26/25) Perforated chronic gastric ulcer (Acute) Shock (Acute) SMAS (superior mesenteric artery syndrome) (Acute) Lumbar contusion (Acute) Cerebrovascular accident (CVA) (Acute ~2018) Medical History Medical History (Updated 04/30/25 @ 13:51 by Kimberly Flores MD) HLD (hyperlipidemia) HTN (hypertension) Afib History of pacemaker Social History Social History Smoking Status: Former smoker If you are a former smoker, when did you quit? (Date/Year): 2019 Number of Years Smoked: 15 Second hand tobacco smoke exposure: No Do you dip or chew tobacco?: No Do you vape?: No Living arrangement: At home Living Condition: With spouse/s.o. Level: Dependent Home Mobility Equipment: Cane Do you feel safe in your home environment?: Yes History of physical, verbal, emotional, or financial abuse?: No ETOH Use: None Are you sexually active?: No POLST Patient has POLST: No Exam Exam Vital Signs: Vital Signs x48h Temp Pulse Resp BP Pulse Ox 04/26/25 09:17 36 C L 66 21 123/67 97 04/26/25 07:13 36.6 C 58 L 20 129/66 98 Constitutional Patient is crying out in pain, holding her left lower quadrant. Appears older than stated age. HENMT normocephalic, head/scalp atraumatic, external nose normal and oral mucous membranes normal Eyes EOMs intact bilaterally Neck/C-Spine visual inspection normal and supple Respiratory breath sounds equal bilaterally, normal respiratory effort and clear to auscultation bilaterally Cardiovascular normal heart rate noted, regular rhythm noted and no edema Gastrointestinal abdomen soft to palpation and nondistended Tender to palpation over the left side of the abdomen, no rebound or guarding. Worst in left lower quadrant. Genitourinary no CVA tenderness Extremities normal to inspection Neurology Alert, grossly intact Psychiatry mental status grossly normal Skin skin color normal Results Vitals Vitals: Oxygen O2 Source Room air Labs Labs: Microbiology 04/26/25 12:44 Anaerobic Culture - Final Abdomen Anaerobic Culture Result 1 - Final Gram Stain - Final Gram Stain Result 1 - Final Gram Stain Result 2 - Final 04/26/25 12:44 Wound Culture - Final Abdomen YEAST Laboratory Tests 04/26/25 04/26/25 04/26/25 07:52 11:11 16:05 WBC 9.3 RBC 3.76 L Hgb 9.0 L Hct 32.4 L MCV 86.2 MCH 23.9 L MCHC 27.8 L RDW 19.4 H Plt Count 323 MPV 9.1 Neut # (Auto) 8.4 H Lymph # (Auto) 0.5 L [place] # (Auto) 0.3 Eos # (Auto) 0.0 Baso # (Auto) 0.0 Absolute Nucleated RBC 0.00 Nucleated RBC % 0.0 Sodium 139 Potassium 3.7 Chloride 102 Carbon Dioxide 26 Anion Gap 11.0 BUN 28 H Creatinine 0.7 Estimated GFR (MDRD) 83 L Glucose 147 H POC Whole Bld Glucose 133 Lactic Acid 1.5 Calcium 9.4 Total Bilirubin 0.6 AST 12 ALT 5 L Alkaline Phosphatase 48 C-Reactive Protein < 0.5 Total Protein 6.6 Albumin 4.0 Globulin 2.6 Albumin/Globulin Ratio 1.5 Prealbumin 11 L Lipase < 10 L Blood Type O POSITIVE Blood Type Recheck O POSITIVE Antibody Screen NEGATIVE Crossmatch IS Only See Detail PD Medical Decision Making ED course Complexity details: reviewed old records, reviewed results, re-evaluated patient, considered differential, d/w patient and d/w family ED course: The patient was treated symptomatically and route with fentanyl but this had worn off by the time of my examination, so she was given a milligram of Dilaudid and worked up with labs and a contrast CT of the abdomen and pelvis. Labs, surprisingly, showed a normal WBC count, but CT showed likely double perforated viscus, including stomach and duodenum. Pt was immediately started on IV antibiotics, and continued fluid hydration, and discussed the findings with pt and family, who would like to move forward with surgical intervention. I discussed the case with Dr. Odell, who came to see the pt, and ultimately, took her to OR. She remained hemodynamically stable throughout her stay in the ED, and did not show signs of sepsis at the time of transfer to surgical care. Discharge Plan Discharge Patient Disposition: 68 [facility] DC/Xfer Condition: Serious Clinical Impression: Perforated abdominal viscus, SMAS (superior mesenteric artery syndrome) Interventions: ED Admission Assessment Last Done: 04/26/25 11:40 Vitals documented within 30 minutes of discharge?: Yes
--- OUTSIDE RECORDS SUMMARY | 2025-04-26 07:48 | EXTERNAL MEDICAL SUMMARY RPT | Continuity of Care Document ---
Author Organization [facility] Address [address] [place] [id number] Phone Problems date description facility 2025-02-02 14:28 Constipation, unspecified [facility] 2025-02-02 14:28 [facility] Nausea [facility] Social History date description facility
[2025-04-26] MEDS: HYDROmorphone 1 MG/ML CARPUJECT IVP STA (07:52)
[2025-04-26] MEDS: SODIUM CHLORIDE 0.9% 1,000 ML IV STA (07:55)
[2025-04-26 07:58] LABS: HCT - HEMATOCRIT 32.4 % (37.0-47.0); HGB - HEMOGLOBIN 9.0 g/dL (12.0-16.0); MEAN PLATELET VOLUME 9.1 fL (7.9-10.8); NRBC ABSOLUTE COUNT (AUTO) 0.00 x10^3/uL; NUCLEATED RED BLOOD CELLS AUTO 0.0 /100WBC; PLT - PLATELET COUNT 323 10^3/uL (130-450); RED CELL DISTRIBUTION WIDTH 19.4 % (12.0-15.0)
[2025-04-26 08:14] LABS: ALT ALANINE AMINOTRANSFERASE 5 IU/L (10-60); AST ASPARTATE AMINOTRANSFERASE 12 IU/L (10-42); BUN - BLOOD UREA NITROGEN 28 mg/dL (6-20); CARBON DIOXIDE - CO2 26 mmol/L (21-32); CREATININE 0.7 mg/dL (0.6-1.3); GFR - MDRD 83 (>89)
[2025-04-26] MEDS ORDERED: HYDROmorphone 0.5 MG/0.5 ML SYRINGE IVP STA (08:18)
[2025-04-26] MEDS: KETOROLAC 30 MG/ML VIAL IVP STA (09:18)
--- NOTE | 2025-04-26 09:20 | CT Report ---
PROCEDURE: CT Abdomen/Pelvis W INDICATIONS: LLQ abd pain CONTRAST: Omni 300 100ml TECHNIQUE: After the administration of intravenous contrast, a CT scan of the abdomen and pelvis was performed. Images were recorded and evaluated at appropriate window settings. Reformats: coronal and sagittal. For radiation dose reduction, the following was used: automated exposure control, adjustment of mA and/or kV according to patient size. COMPARISON: None. FINDINGS: Image quality: Diagnostic. Lower chest: Unremarkable. Liver: No solid mass. Gallbladder: No radiopaque stones or wall thickening. Biliary tree: No intrahepatic or extrahepatic dilation, accounting for age. Spleen: No splenomegaly. Pancreas: No pancreatic ductal dilation. Adrenals: No adrenal nodule. Kidneys and ureters: No hydronephrosis. No renal cystic lesion which requires follow up. No solid mass. Stomach, bowel and peritoneum: Question SMA's syndrome. There is a narrow distance between the SMA and the aorta. The third and fourth portion of the duodenum are diminutive. The duodenal C-loop is quite dilated, and the stomach is markedly dilated. There is a bowel perforation, with free air present. Suspect perforated pyloric gastric ulcer. The presence of a potential ulcer is suggested on image 31 of coronal series 4. Mild pelvic ascites. Past the duodenum, the small bowel is unremarkable. No acute colonic pathology. Lymph nodes: No central or retroperitoneal adenopathy. Vessels: No infrarenal aortic aneurysm. Patent portal vein. PELVIS Reproductive organs: Unremarkable. Bladder: No abnormal wall thickening. Pelvic lymph nodes: No pelvic adenopathy by size criteria. Bones: No aggressive osseous abnormality. Other: No significant ventral or inguinal hernia. IMPRESSION: 1. 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 Narrowed distance between SMA and the aorta with significant dilatation of the duodenal C-loop and stomach. 2. The stomach is markedly dilated. 3. Free air, likely related to a perforated ulcer, which appears to be located in the pyloric region of the stomach. 4. Mild pelvic ascites. Above discussed with Padmini Talamantes MD at the time of dictation on 04/26/2025 at 0914 hours. Reviewed by: Benitez Pantoja MD on 04/26/2025 9:17 AM PDT Approved by: Benitez Pantoja MD on 04/26/2025 9:17 AM PDT Station ID: [id number]
[2025-04-26] MEDS: AMPICILLIN/SULBACTAM 3 GM in SODIUM CHLORIDE 0.9% MINIBAG 100 ML IV STA (09:39)
[2025-04-26] MEDS: HYDROmorphone 0.5 MG/0.5 ML SYRINGE IVP STA (09:55)
[2025-04-26] MEDS ORDERED: BUPIVACAINE 0.25% PF 30 ML VIAL ONE (10:09)
--- NOTE | 2025-04-26 10:17 | CONSULTATION NOTE ---
Referring Provider <Olivia Barrientos - Last Filed: 04/26/25 11:27> Consult Date: 04/26/25 Chief Complaint <Olivia Barrientos - Last Filed: 04/26/25 11:27> Chief Complaint Chief Complaint: Abdominal pain History of Present Illness <Olivia Barrientos - Last Filed: 04/26/25 11:27> History Obtained From History obtained from: Patient and son History of Present Illness HPI Comment/Other: Danielle is a 69yoF who presented to the ED today with a chief complaint of worsening abdominal pain. Her son states that this has been a chronic issue but started worsening approximately 2 weeks ago. She has had a decreased appetite and been unable to tolerate solid PO intake, resulting in multiple episodes of emesis per day. The abdominal pain reached its maximum intensity last night, she was unable to sleep and is no longer able to tolerate liquid PO intake. Her last episode of emesis was this morning and she denies persistent nausea. She denies ever having hemoptysis or hematemesis. Her son states that she has irregular bowel movements and she normally takes medication to help. The patient states her last BM was yesterday, she denies hematochezia. The patient states she has had a colonoscopy before but records are not available. Over the last year, she has unintentionally lost approximately 100 pounds which her son attributes to her abdominal pain causing anorexia. She currently lives with her son who often needs to help her ambulate to the bathroom. 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 Her son doesn't think she's taken Eliquis for at least a week because they thought pills were making her abdominal pain worse. No prior abdominal surgery. Pacemaker. <Ro Odell DO - Last Filed: 04/26/25 11:34> History of Present Illness HPI Comment/Other: Danielle is a 69yoF who presented to the ED today with a chief complaint of worsening abdominal pain. Her son states that this has been a chronic issue but started worsening approximately 2 weeks ago. She has had a decreased appetite and been unable to tolerate solid PO intake, resulting in multiple episodes of emesis per day. The abdominal pain reached its maximum intensity last night, she was unable to sleep and is no longer able to tolerate liquid PO intake. Her last episode of emesis was this morning and she denies persistent nausea. She denies ever having hemoptysis or hematemesis. Her son states that she has irregular bowel movements and she normally takes medication to help. The patient states her last BM was yesterday, she denies hematochezia or melena. The patient states she has had a colonoscopy before but records are not available. Over the last year, she has unintentionally lost approximately 100 pounds which her son attributes to her abdominal pain causing anorexia. She currently lives with her son who often needs to help her ambulate to the bathroom. 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 Her son doesn't think she's taken Eliquis for at least a week because they thought pills were making her abdominal pain worse. No prior abdominal surgery. Pacemaker. Meds/Allgy <Olivia Barrientos - Last Filed: 04/26/25 11:27> Home Medications Ambulatory Orders Medication Instructions Recorded Confirmed apixaban 5 mg tablet (Eliquis) 5 mg PO QDAY 05/17/24 0 04/26/25 metoprolol tartrate 25 mg tablet 25 mg PO BID 05/17/24 04/26/25 Allergies Allergies Allergy/AdvReac Type Severity Reaction Status Date / Time morphine Allergy Rash Verified 04/26/25 07:21 sulfamethoxazole (From Allergy Rash Verified 04/26/25 07:21 ) trimethoprim (From ) Allergy Rash Verified 04/26/25 07:21 PFSH <Olivia Barrientos - Last Filed: 04/26/25 11:27> Active Problems All Active Problems (Updated 04/26/25 @ 10:55 by Ro Odell DO) SMAS (superior mesenteric artery syndrome) (Acute) Perforated abdominal viscus (Acute) Lumbar contusion (Acute) Cerebrovascular accident (CVA) (Acute ~2018) Vomiting (Acute) Abdominal pain (Acute) Medical History Medical History (Updated 04/26/25 @ 10:55 by Ro Odell DO) Diabetes mellitus HLD (hyperlipidemia) HTN (hypertension) Afib History of pacemaker Social History Social History (Updated 04/26/25 @ 07:25 by Giovanna Tolbert RN) Smoking Status: Former smoker If you are a former smoker, when did you quit? (Date/Year): 2018 Number of Years Smoked: 15 Second hand tobacco smoke exposure: No Do you dip or chew tobacco?: No Do you vape?: No Living arrangement: At home Living Condition: With spouse/s.o. Do you feel safe in your home environment?: Yes History of physical, verbal, emotional, or financial abuse?: No ETOH Use: None Are you sexually active?: No POLST Patient has POLST: No POLST CPR Status: Attempt Resuscitation (CPR) Level of Medical Intervention: Full Treatment <Ro Odell DO - Last Filed: 04/26/25 11:34> POLST Level of Medical Intervention: Full Treatment Results <Olivia Barrientos - Last Filed: 04/26/25 11:27> Lab Results Lab results reviewed: Yes 04/26/25 07:52 04/26/25 07:52 Other Lab Results: Lab Results x24hrs 04/26/25 Range/Units 07:52 WBC 9.3 (4.8-10.8) x10^3/uL RBC 3.76 L (4.20-5.40) 10^6/uL Hgb 9.0 L (12.0-16.0) g/dL Hct 32.4 L (37.0-47.0) % MCV 86.2 (81.0-99.0) fL MCH 23.9 L (27.0-31.0) pg MCHC 27.8 L (32.0-36.0) g/dL RDW 19.4 H (12.0-15.0) % Plt Count 323 (130-450) 10^3/uL MPV 9.1 (7.9-10.8) fL Neut # (Auto) 8.4 H (1.5-6.6) 10^3/uL Lymph # (Auto) 0.5 L (1.5-3.5) 10^3/uL [place] # (Auto) 0.3 (0.0-1.0) 10^3/uL Eos # (Auto) 0.0 (0.0-0.7) 10^3/uL Baso # (Auto) 0.0 (0.0-0.1) 10^3/uL Absolute Nucleated RBC 0.00 x10^3/uL Nucleated RBC % 0.0 /100WBC Sodium 139 (135-145) mmol/L Potassium 3.7 (3.5-4.5) mmol/L Chloride 102 (101-111) mmol/L Carbon Dioxide 26 (21-32) mmol/L Anion Gap 11.0 (6-13) BUN 28 H (6-20) mg/dL Creatinine 0.7 (0.6-1.3) mg/dL Estimated GFR (MDRD) 83 L (>89) Glucose 147 H (74-104) mg/dL Calcium 9.4 (8.5-10.3) mg/dL Total Bilirubin 0.6 (0.2-1.0) mg/dL AST 12 (10-42) IU/L ALT 5 L (10-60) IU/L Alkaline Phosphatase 48 (42-121) IU/L Total Protein 6.6 (6.4-8.9) g/dL Albumin 4.0 (3.2-5.5) g/dL Globulin 2.6 (2.1-4.2) g/dL Albumin/Globulin Ratio 1.5 (1.0-2.2) Lipase < 10 L (11-82) U/L Diagnostic Imaging Results Diagnostic Imaging Results: positive Final report reviewed and Read independently Diagnostic Imaging Results Comments: CTAP: 1. 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 Narrowed distance between SMA and the aorta with significant dilatation of the duodenal C-loop and stomach. 2. The stomach is markedly dilated. 3. Free air, likely related to a perforated ulcer, which appears to be located in the pyloric region of the stomach. 4. Mild pelvic ascites. <Ro Odell DO - Last Filed: 04/26/25 11:34> Lab Results Other Lab Results: Lab Results x24hrs 04/26/25 Range/Units 07:52 WBC 9.3 (4.8-10.8) x10^3/uL RBC 3.76 L (4.20-5.40) 10^6/uL Hgb 9.0 L (12.0-16.0) g/dL Hct 32.4 L (37.0-47.0) % MCV 86.2 (81.0-99.0) fL MCH 23.9 L (27.0-31.0) pg MCHC 27.8 L (32.0-36.0) g/dL RDW 19.4 H (12.0-15.0) % Plt Count 323 (130-450) 10^3/uL MPV 9.1 (7.9-10.8) fL Neut # (Auto) 8.4 H (1.5-6.6) 10^3/uL Lymph # (Auto) 0.5 L (1.5-3.5) 10^3/uL [place] # (Auto) 0.3 (0.0-1.0) 10^3/uL Eos # (Auto) 0.0 (0.0-0.7) 10^3/uL Baso # (Auto) 0.0 (0.0-0.1) 10^3/uL Absolute Nucleated RBC 0.00 x10^3/uL Nucleated RBC % 0.0 /100WBC Sodium 139 (135-145) mmol/L Potassium 3.7 (3.5-4.5) mmol/L Chloride 102 (101-111) mmol/L Carbon Dioxide 26 (21-32) mmol/L Anion Gap 11.0 (6-13) BUN 28 H (6-20) mg/dL Creatinine 0.7 (0.6-1.3) mg/dL Estimated GFR (MDRD) 83 L (>89) Glucose 147 H (74-104) mg/dL Calcium 9.4 (8.5-10.3) mg/dL Total Bilirubin 0.6 (0.2-1.0) mg/dL AST 12 (10-42) IU/L ALT 5 L (10-60) IU/L Alkaline Phosphatase 48 (42-121) IU/L Total Protein 6.6 (6.4-8.9) g/dL Albumin 4.0 (3.2-5.5) g/dL Globulin 2.6 (2.1-4.2) g/dL Albumin/Globulin Ratio 1.5 (1.0-2.2) Lipase < 10 L (11-82) U/L Review of Systems <Olivia Barrientos - Last Filed: 04/26/25 11:27> Status of ROS: 10 or more systems reviewed and unremarkable except as noted in history and below Exam <Olivia Barrientos - [facility] Filed: 04/26/25 11:27> Exam Vital Signs: Vital Signs x48h Temp Pulse Resp BP Pulse Ox 04/26/25 11:09 67 21 145/84 H 99 04/26/25 11:06 60 8 L 137/83 H 98 04/26/25 11:01 61 10 L 147/78 H 98 04/26/25 10:56 63 12 127/74 99 04/26/25 10:51 65 11 L 138/79 H 98 04/26/25 10:46 66 11 L 138/76 H 99 04/26/25 10:41 61 10 L 139/76 H 98 04/26/25 10:36 60 9 L 147/77 H 95 04/26/25 10:31 60 10 L 131/89 H 98 04/26/25 10:26 63 11 L 149/77 H 99 04/26/25 10:21 60 8 L 146/79 H 98 04/26/25 10:16 60 20 139/81 H 98 04/26/25 10:11 60 10 L 140/81 H 99 04/26/25 10:06 62 16 141/79 H 99 04/26/25 10:01 65 11 L 130/77 99 04/26/25 09:56 61 12 143/78 H 100 04/26/25 09:51 60 16 135/78 H 99 04/26/25 09:46 60 12 139/76 H 94 04/26/25 09:41 60 11 L 124/75 98 04/26/25 09:36 66 14 126/76 98 04/26/25 09:31 62 18 113/71 93 04/26/25 09:26 60 17 126/69 97 04/26/25 09:21 63 18 112/72 96 04/26/25 09:17 36 C L 66 21 123/67 97 04/26/25 09:16 67 18 123/67 97 04/26/25 07:15 60 25 H 129/66 97 04/26/25 07:13 36.6 C 58 L 20 129/66 98 Constitutional no apparent distress and abnormal body habitus (cachectic) HENMT normocephalic and head/scalp atraumatic Neck/C-Spine visual inspection normal and trachea midline Respiratory normal respiratory effort and no use of accessory muscles Cardiovascular normal heart rate noted and regular rhythm noted Gastrointestinal abdomen normal to inspection, abdomen firm to palpation (Diffusely firm), tender to palpation (To light palpation) (moderate), (LUQ) and (RUQ) and nondistended Genitourinary bladder normal to palpation Neurology GCS 15 <Ro Odell, DO - Last Filed: 04/26/25 11:34> Exam Vital Signs: Vital Signs x48h Temp Pulse Resp BP Pulse Ox 04/26/25 11:09 67 21 145/84 H 99 04/26/25 11:06 60 8 L 137/83 H 98 04/26/25 11:01 61 10 L 147/78 H 98 04/26/25 10:56 63 12 127/74 99 04/26/25 10:51 65 11 L 138/79 H 98 04/26/25 10:46 66 11 L 138/76 H 99 04/26/25 10:41 61 10 L 139/76 H 98 04/26/25 10:36 60 9 L 147/77 H 95 04/26/25 10:31 60 10 L 131/89 H 98 04/26/25 10:26 63 11 L 149/77 H 99 04/26/25 10:21 60 8 L 146/79 H 98 04/26/25 10:16 60 20 139/81 H 98 04/26/25 10:11 60 10 L 140/81 H 99 04/26/25 10:06 62 16 141/79 H 99 04/26/25 10:01 65 11 L 130/77 99 04/26/25 09:56 61 12 143/78 H 100 04/26/25 09:51 60 16 135/78 H 99 04/26/25 09:46 60 12 139/76 H 94 04/26/25 09:41 60 11 L 124/75 98 04/26/25 09:36 66 14 126/76 98 04/26/25 09:31 62 18 113/71 93 04/26/25 09:26 60 17 126/69 97 04/26/25 09:21 63 18 112/72 96 04/26/25 09:17 36 C L 66 21 123/67 97 04/26/25 09:16 67 18 123/67 97 04/26/25 07:15 60 25 H 129/66 97 04/26/25 07:13 36.6 C 58 L 20 129/66 98 Cardiovascular regular rhythm noted (100% paced) Gastrointestinal abdomen firm to palpation (Diffusely firm/involuntary guarding) Conclusion/Plan <Olivia Barrientos - Last Filed: 04/26/25 11:27> Problem List (1) Perforated abdominal viscus: Plan: Danielle is a 69yoF with a history of CVA in 2018 with left sided deficits, atrial fibrillation on Eliquis, anemia concerning for upper GI bleed in January 2025, constipation, heartburn, DM, HTN, and HLD who presented to the ED with acute abdominal pain and imaging findings concerning for SMA syndrome and a perforated gastric ulcer. - NG tube - S/p Unasyn, Zosyn, Flagyl - NPO - Type & screen - Plan for exploratory laparotomy today - No need for PCC, patient hasn't taken Eliquis in 7 days Lab Results Lab results reviewed: Yes 04/26/25 07:52 04/26/25 07:52 Diagnostic Imaging Results Diagnostic Imaging Results: positive Final report reviewed and Read independently <Ro Odell DO - Last Filed: 04/26/25 11:34> Problem List (1) Perforated abdominal viscus: Plan: Danielle is a 69yoF with a history of CVA in 2018 with left sided deficits, atrial fibrillation on Eliquis, anemia concerning for upper GI bleed in January 2025, constipation, heartburn, DM, HTN, and HLD who presented to the ED with acute abdominal pain and imaging findings concerning for a perforated gastric ulcer. - NG tube (refused in ED) - abx in ED - NPO - Type & screen - Plan for exploratory laparotomy today - No need for PCC, patient hasn't taken Eliquis in 7 days Olivia Barrientos MS4
[2025-04-26] MEDS: PIPERACILLIN/TAZOBACTAM 3.375 GM in SODIUM CHLORIDE 0.9% MINIBAG 100 ML IV STA (11:08)
[2025-04-26] MEDS ORDERED: PROPOFOL 200 MG/20 ML VIAL IVP ONE (11:12)
[2025-04-26] MEDS ORDERED: SUCCINYLCHOLINE 200 MG/10 ML VIAL ONE (11:12)
[2025-04-26] MEDS ORDERED: ROCURONIUM 50 MG/5 ML VIAL ONE (11:12)
[2025-04-26] MEDS: PANTOPRAZOLE 40 MG VIAL IV STA (11:15)
[2025-04-26] MEDS ORDERED: ACETAMINOPHEN 1,000 MG/100 ML 1,000 MG/100 ML BAG IV ONE (11:17)
--- NOTE | 2025-04-26 11:30 | ANESTHESIA PROCEDURE NOTE ---
Pre-Anesthesia VS, & Labs Diagnosis Surgical Diagnosis:: perforated viscus Procedure Procedure: exploratory laparotomy Vitals Vital Signs: Temp Pulse Resp BP Pulse Ox 36 C L 67 21 145/84 H 99 04/26/25 09:17 04/26/25 11:09 04/26/25 11:09 04/26/25 11:09 04/26/25 11:09 NPO NPO: >8 hours Is Patient ?: No Lab Results Current Lab Results: Laboratory Tests 04/26/25 07:52: WBC 9.3, RBC 3.76 L, Hgb 9.0 L, Hct 32.4 L, MCV 86.2, MCH 23.9 L , MCHC 27.8 L, RDW 19.4 H, Plt Count 323, MPV 9.1, Neut # (Auto) 8.4 H, Lymph # (Auto) 0.5 L, [place] # (Auto) 0.3, Eos # (Auto) 0.0, Baso # (Auto) 0.0, Absolute Nucleated RBC 0.00, Nucleated RBC % 0.0, Sodium 139, Potassium 3.7, Chloride 102, Carbon Dioxide 26, Anion Gap 11.0, BUN 28 H, Creatinine 0.7, Estimated GFR (MDRD) 83 L, Glucose 147 H, Calcium 9.4, Total Bilirubin 0.6, AST 12, ALT 5 L, Alkaline Phosphatase 48, Total Protein 6.6, Albumin 4.0, Globulin 2.6, Albumin/Globulin Ratio 1.5, Lipase < 10 L 04/26/25 07:52 04/26/25 07:52 Meds/Allgy Home Medications Ambulatory Orders Medication Instructions Recorded Confirmed apixaban 5 mg tablet (Eliquis) 5 mg PO QDAY 05/17/24 0 04/26/25 metoprolol tartrate 25 mg tablet 25 mg PO BID 05/17/24 04/26/25 Allergies Allergies Allergy/AdvReac Type Severity Reaction Status Date / Time morphine Allergy Rash Verified 04/26/25 07:21 sulfamethoxazole (From Allergy Rash Verified 04/26/25 07:21 ) trimethoprim (From ) Allergy Rash Verified 04/26/25 07:21 PFSH Active Problems All Active Problems (Updated 04/26/25 @ 10:55 by Ro Odell DO) SMAS (superior mesenteric artery syndrome) (Acute) Perforated abdominal viscus (Acute) Lumbar contusion (Acute) Cerebrovascular accident (CVA) (Acute ~2018) Vomiting (Acute) Abdominal pain (Acute) Medical History Medical History (Updated 04/26/25 @ 10:55 by Ro Odell DO) Diabetes mellitus HLD (hyperlipidemia) HTN (hypertension) Afib History of pacemaker Social History Social History (Updated 04/26/25 @ 07:25 by Giovanna Tolbert RN) Smoking Status: Former smoker If you are a former smoker, when did you quit? (Date/Year): 2018 Number of Years Smoked: 15 Second hand tobacco smoke exposure: No Do you dip or chew tobacco?: No Do you vape?: No Living arrangement: At home Living Condition: With spouse/s.o. Do you feel safe in your home environment?: Yes History of physical, verbal, emotional, or financial abuse?: No ETOH Use: None Are you sexually active?: No POLST Patient has POLST: No Anesthesia Exam (Expanded) Exam General: Alert, Oriented x3 and Mild distress Dental: WNL Mouth Openin Fingerbreadth Mallampati classification: II Thyromental Distance: less than 4 cm Respiratory: Lungs clear and Decreased breath sounds Cardiovascular: Regular rate Exam Exam Vital Signs: Vital Signs x48h Temp Pulse Resp BP Pulse Ox 04/26/25 11:09 67 21 145/84 H 99 04/26/25 11:06 60 8 L 137/83 H 98 04/26/25 11:01 61 10 L 147/78 H 98 04/26/25 10:56 63 12 127/74 99 04/26/25 10:51 65 11 L 138/79 H 98 04/26/25 10:46 66 11 L 138/76 H 99 04/26/25 10:41 61 10 L 139/76 H 98 04/26/25 10:36 60 9 L 147/77 H 95 04/26/25 10:31 60 10 L 131/89 H 98 04/26/25 10:26 63 11 L 149/77 H 99 04/26/25 10:21 60 8 L 146/79 H 98 04/26/25 10:16 60 20 139/81 H 98 04/26/25 10:11 60 10 L 140/81 H 99 04/26/25 10:06 62 16 141/79 H 99 04/26/25 10:01 65 11 L 130/77 99 04/26/25 09:56 61 12 143/78 H 100 04/26/25 09:51 60 16 135/78 H 99 04/26/25 09:46 60 12 139/76 H 94 04/26/25 09:41 60 11 L 124/75 98 04/26/25 09:36 66 14 126/76 98 04/26/25 09:31 62 18 113/71 93 04/26/25 09:26 60 17 126/69 97 04/26/25 09:21 63 18 112/72 96 04/26/25 09:17 36 C L 66 21 123/67 97 04/26/25 09:16 67 18 123/67 97 04/26/25 07:15 60 25 H 129/66 97 04/26/25 07:13 36.6 C 58 L 20 129/66 98 Plan Problem List (1) Perforated abdominal viscus: Plan: Danielle is a 69yoF with a history of CVA in 2017 with left sided deficits, atrial fibrillation on Eliquis, anemia concerning for upper GI bleed in January 2025, constipation, heartburn, DM, HTN, and HLD who presented to the ED with acute abdominal pain and imaging findings concerning for SMA syndrome and a perforated gastric ulcer. - NG tube - S/p Unasyn, Zosyn, Flagyl - NPO - Type & screen - Plan for exploratory laparotomy today - No need for PCC, patient hasn't taken Eliquis in 7 days Plan Anesthesia Type: General Consent for Procedure(s) Verified and Reviewed: Yes Code Status: Attempt Resuscitation ASA Classification ASA classification: 4-Incapacitating disease Is this case an emergency?: Yes
[2025-04-26] MEDS ORDERED: NALOXONE 0.4 MG/ML VIAL IVP PRN (11:40)
[2025-04-26] MEDS ORDERED: METOCLOPRAMIDE 10 MG/2 ML VIAL IVP PRN (11:40)
[2025-04-26] MEDS ORDERED: ATROPINE ABBOJECT 1 MG/10 ML SYRINGE IVP PRN (11:40)
[2025-04-26] MEDS ORDERED: fentaNYL 100 MCG/2 ML VIAL IVP PRN (11:40)
[2025-04-26] MEDS ORDERED: ePHEDrine 50 MG/ML VIAL IVP PRN (11:40)
[2025-04-26] MEDS ORDERED: ONDANSETRON 4 MG/2 ML VIAL IVP PRN (11:40)
[2025-04-26] MEDS ORDERED: MIDAZOLAM 2 MG/2 ML VIAL ONE (11:43)
[2025-04-26 11:47] LABS: CRP - C-REACTIVE PROTEIN < 0.5 mg/dL (<0.5)
--- NOTE | 2025-04-26 12:11 | XRAY Report ---
PROCEDURE: XR Chest 1V INDICATIONS: preop baseline TECHNIQUE: One view of the chest was acquired. COMPARISON: None. FINDINGS: Surgical changes and devices: Left-sided dual-lead cardiac pacer Lungs and pleura: No pleural effusions or pneumothorax. No consolidation. Mediastinum: Mediastinal contours appear normal. Heart is enlarged. Bones and chest wall: No suspicious bony lesions. Overlying soft tissues appear unremarkable. Contrast material in the visualized genitourinary collecting systems related to recent CT of the abdomen and pelvis IMPRESSION: No acute cardiopulmonary process. Reviewed by: Maricruz Jane MD, PhD on 04/26/2025 12:08 PM PDT Approved by: Maricruz Jane MD, PhD on 04/26/2025 12:08 PM PDT Station ID: [id number]
[2025-04-26] MEDS ORDERED: DEXAMETHASONE 4 MG/ML VIAL ONE (13:07)
[2025-04-26] MEDS ORDERED: SUGAMMADEX 200 MG/2 ML VIAL IVP ONE (15:30)
[2025-04-26] MEDS ORDERED: ONDANSETRON 4 MG/2 ML VIAL ONE (15:40)
[2025-04-26] MEDS: LACTATED RINGERS 1,000 ML IV SCH (15:55)
--- NOTE | 2025-04-26 16:28 | CONSULTATION NOTE ---
Referring Provider Name of Referring Provider:: Dr. Ro Odell Consult Date: 04/26/25 Chief Complaint Chief Complaint Chief Complaint: Abdominal pain History of Present Illness Admitted From Admitted From:: Home History Obtained From Records Reviewed: EMR History obtained from: Patient, patient's daughters and sons at bedside Exam Limitations: None History of Present Illness HPI Comment/Other: Patient is a 69-year-old female with a history of atrial fibrillation on Eliquis, permanent pacemaker, GERD who initially presented for abdominal pain. Per patient, this has been going on for the better part of a year, but worsened acutely in the last 3 days. She describes it as sharp, located in the center of her abdomen, with no radiation. She also endorses nausea, as well as a few episodes of nonbloody, nonbilious emesis over the last few days. In the last year, she has lost about 100 pounds. She states that she does not feel like eating, and when she does eat, she experiences the pain. She was prescribed what sounds like Protonix or Prilosec by her PCP, which she states worsened the pain. She has never had a colonoscopy or an EGD done before. She did come here in 01/25, and ER notes were reviewedat that time, she had presented with upper abdominal pain, and nausea. She had recently gone to [facility] at that time, and a CT abdomen pelvis were done there, which showed no acute findings per the patient. She did have an anemia at that time was 7.6, and she was advised to follow-up closely and get a colonoscopy and possible EGD done in the outpatient, which she had not done yet. In the ER, she was vitally stablenormotensive, heart rate of 60, paced rhythm, respiratory rate between 14-15, saturating 100% on room air. She was also afebrile. 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 She was taken emergently to the ORthis revealed a near obstructing pyloric mass that was involving the distal hepatic ligament. Fluid cultures were taken, as well as a biopsy of this mass. The perforated ulcer was repaired with a Talha patch, and a gastrostomy tube was placed, as well as jejunostomy tube. She was transferred to the ICU for closer monitoring in stable condition without any need for pressor support. She was started on Zosyn, vancomycin, fluconazole. She was waking up appropriately, and was able to provide the above history after surgery. Past medical history includes [id number] diabetes mellitus, diet controlled at this time. She also has atrial fibrillation for which she takes Eliquis inconsistently. She has not been taking this for the past 2 weeks because it made her stomach pain worse. She has a pacemaker in place. Medications include metoprolol and Eliquis. Allergies include morphine and sulfa drugs, both of which give her a rash. She has no surgical history. She denies any current alcohol, tobacco, recreational drug use. She does have history of former tobacco use. She lives with her son. She has six kids. Prior to this year, she was relatively active. Now, she uses a wheelchair to alternate between the bathroom and her bed, and spends most day in bed. Meds/Allgy Home Medications Ambulatory Orders Medication Instructions Recorded Confirmed apixaban 5 mg tablet (Eliquis) 5 mg PO BID 05/17/24 lisinopril 2.5 mg tablet 2.5 mg PO DAILY 04/26/25 metoprolol succinate 25 mg 25 mg PO DAILY 04/27/25 tablet,extended release 24 hr Allergies Allergies Allergy/AdvReac Type Severity Reaction Status Date / Time morphine Allergy Rash Verified 04/26/25 07:21 sulfamethoxazole (From Allergy Rash Verified 04/26/25 07:21 Septra) trimethoprim (From ) Allergy Rash Verified 04/26/25 07:21 [facility] Active Problems All Active Problems (Updated 04/27/25 @ 12:50 by Kimberly Flores MD) Shock (Acute) SMAS (superior mesenteric artery syndrome) (Acute) Perforated abdominal viscus (Acute) Lumbar contusion (Acute) Cerebrovascular accident (CVA) (Acute ~2018) Vomiting (Acute) Abdominal pain (Acute) Medical History Medical History Diabetes mellitus HLD (hyperlipidemia) HTN (hypertension) Afib History of pacemaker Social History Social History Smoking Status: Former smoker If you are a former smoker, when did you quit? (Date/Year): 2019 Number of Years Smoked: 15 Second hand tobacco smoke exposure: No Do you dip or chew tobacco?: No Do you vape?: No Living arrangement: At home Living Condition: With spouse/s.o. Level: Dependent Home Mobility Equipment: Cane Do you feel safe in your home environment?: Yes History of physical, verbal, emotional, or financial abuse?: No ETOH Use: None Are you sexually active?: No POLST Patient has POLST: No POLST CPR Status: Attempt Resuscitation (CPR) Level of Medical Intervention: Full Treatment Results Lab Results Lab results reviewed: Yes 04/27/25 05:32 04/27/25 05:32 Other Lab Results: Lab Results x24hrs 04/27/25 04/27/25 04/27/25 Range/Units 12:34 05:32 00:20 WBC 7.6 (4.8-10.8) x10^3/uL RBC 3.83 L (4.20-5.40) 10^6/uL Hgb 10.0 L (12.0-16.0) g/dL Hct 33.0 L (37.0-47.0) % MCV 86.2 (81.0-99.0) fL MCH 26.1 L (27.0-31.0) pg MCHC 30.3 L (32.0-36.0) g/dL RDW 17.6 H (12.0-15.0) % Plt Count 235 (130-450) 10^3/uL MPV 9.1 (7.9-10.8) fL Neut # (Auto) 7.1 H (1.5-6.6) 10^3/uL Lymph # (Auto) 0.3 L (1.5-3.5) 10^3/uL Harper # (Auto) 0.2 (0.0-1.0) 10^3/uL Eos # (Auto) 0.0 (0.0-0.7) 10^3/uL Baso # (Auto) 0.0 (0.0-0.1) 10^3/uL Absolute Nucleated RBC 0.00 x10^3/uL Nucleated RBC % 0.0 /100WBC VBG pH 7.330 (7.31-7.41) Ionized Calcium 1.11 (1.09-1.30) mmol/L Sodium 135 (135-145) mmol/L Potassium 3.7 (3.5-4.5) mmol/L Chloride 106 (101-111) mmol/L Carbon Dioxide 22 (21-32) mmol/L Anion Gap 7.0 (6-13) BUN 23 H (6-20) mg/dL Creatinine 0.7 (0.6-1.3) mg/dL Estimated GFR (MDRD) 83 L (>89) Glucose 190 H (74-104) mg/dL POC Whole Bld Glucose 152 139 (70-100) mg/dL Estimat Average Glucose 100 (70-100) mg/dL Hemoglobin A1c % 5.1 (4.27-6.07) % Calcium 7.7 L (8.5-10.3) mg/dL Phosphorus 3.6 (2.5-5.0) mg/dL Magnesium 1.3 L (1.7-2.3) mg/dL Total Bilirubin 1.3 H (0.2-1.0) mg/dL AST 17 (10-42) IU/L ALT 8 L (10-60) IU/L Alkaline Phosphatase 25 L (42-121) IU/L Total Protein 4.9 L (6.4-8.9) g/dL Albumin 3.0 L (3.2-5.5) g/dL Globulin 1.9 L (2.1-4.2) g/dL Albumin/Globulin Ratio 1.6 (1.0-2.2) Lipase 33 (11-82) U/L Urine Color Urine Clarity (CLEAR) Urine pH (5.0-7.5) PH Ur Specific Atwood (1.002-1.030) Urine Protein (NEGATIVE) mg/dL Urine Glucose (UA) (NEGATIVE) mg/dL Urine Ketones (NEGATIVE) mg/dL Urine Occult Blood (NEGATIVE) Urine Nitrite (NEGATIVE) Urine Bilirubin (NEGATIVE) Urine Urobilinogen (NORMAL) E.U./dL Ur Leukocyte Esterase (NEGATIVE) Urine RBC (0-5) /HPF Urine WBC (0-5) /HPF Ur Squamous Epith Cells (<= Few) Urine Crystals /LPF Urine Bacteria (None Seen) /HPF Urine Casts /LPF Ur Microscopic Review Urine Culture Comments Nasal Screen MRSA (PCR) (NEGATIVE) Blood Type Antibody Screen Crossmatch IS Only 04/26/25 04/26/25 04/26/25 Range/Units 22:19 17:59 17:13 WBC 4.2 L (4.8-10.8) x10^3/uL RBC 2.84 L (4.20-5.40) 10^6/uL Hgb 6.9 L* (12.0-16.0) g/dL Hct 25.1 L (37.0-47.0) % MCV 88.4 (81.0-99.0) fL MCH 24.3 L (27.0-31.0) pg MCHC 27.5 L (32.0-36.0) g/dL RDW 19.4 H (12.0-15.0) % Plt Count 181 (130-450) 10^3/uL MPV 10.1 (7.9-10.8) fL Neut # (Auto) 3.7 (1.5-6.6) 10^3/uL Lymph # (Auto) 0.3 L (1.5-3.5) 10^3/uL Harper # (Auto) 0.2 (0.0-1.0) 10^3/uL Eos # (Auto) 0.0 (0.0-0.7) 10^3/uL Baso # (Auto) 0.0 (0.0-0.1) 10^3/uL Absolute Nucleated RBC 0.00 x10^3/uL Nucleated RBC % 0.0 /100WBC VBG pH (7.31-7.41) Ionized Calcium (1.09-1.30) mmol/L Sodium 135 (135-145) mmol/L Potassium 3.7 (3.5-4.5) mmol/L Chloride 109 (101-111) mmol/L Carbon Dioxide 19 L (21-32) mmol/L Anion Gap 7.0 (6-13) BUN 22 H (6-20) mg/dL Creatinine 0.5 L (0.6-1.3) mg/dL Estimated GFR (MDRD) 123 (>89) Glucose 153 H (74-104) mg/dL POC Whole Bld Glucose 145 (70-100) mg/dL Estimat Average Glucose (70-100) mg/dL Hemoglobin A1c % (4.27-6.07) % Calcium 7.2 L (8.5-10.3) mg/dL Phosphorus (2.5-5.0) mg/dL Magnesium (1.7-2.3) mg/dL Total Bilirubin (0.2-1.0) mg/dL AST (10-42) IU/L ALT (10-60) IU/L Alkaline Phosphatase (42-121) IU/L Total Protein (6.4-8.9) g/dL Albumin (3.2-5.5) g/dL Globulin (2.1-4.2) g/dL Albumin/Globulin Ratio (1.0-2.2) Lipase (11-82) U/L Urine Color YELLOW Urine Clarity CLEAR (CLEAR) Urine pH 6.0 (5.0-7.5) PH Ur Specific Atwood 1.015 (1.002-1.030) Urine Protein 30 H (NEGATIVE) mg/dL Urine Glucose (UA) NEGATIVE (NEGATIVE) mg/dL Urine Ketones 15 H (NEGATIVE) mg/dL Urine Occult Blood MODERATE (NEGATIVE) Urine Nitrite NEGATIVE (NEGATIVE) Urine Bilirubin NEGATIVE (NEGATIVE) Urine Urobilinogen 0.2 (NORMAL) (NORMAL) E.U./dL Ur Leukocyte Esterase NEGATIVE (NEGATIVE) Urine RBC 6-10 H (0-5) /HPF Urine WBC 0-3 (0-5) /HPF Ur Squamous Epith Cells RARE Squamous (<= Few) Urine Crystals 0-2 Uric Acid /LPF Urine Bacteria None Seen (None Seen) /HPF Urine Casts 3-5 Fine Granular /LPF Ur Microscopic Review INDICATED Urine Culture Comments NOT INDICATED Nasal Screen MRSA (PCR) (NEGATIVE) Blood Type Antibody Screen Crossmatch IS Only 04/26/25 04/26/25 04/26/25 Range/Units 17:05 16:05 11:11 WBC (4.8-10.8) x10^3/uL RBC (4.20-5.40) 10^6/uL Hgb (12.0-16.0) g/dL Hct (37.0-47.0) % MCV (81.0-99.0) fL MCH (27.0-31.0) pg MCHC (32.0-36.0) g/dL RDW (12.0-15.0) % Plt Count (130-450) 10^3/uL MPV (7.9-10.8) fL Neut # (Auto) (1.5-6.6) 10^3/uL Lymph # (Auto) (1.5-3.5) 10^3/uL Harper # (Auto) (0.0-1.0) 10^3/uL Eos # (Auto) (0.0-0.7) 10^3/uL Baso # (Auto) (0.0-0.1) 10^3/uL Absolute Nucleated RBC x10^3/uL Nucleated RBC % /100WBC VBG pH (7.31-7.41) Ionized Calcium (1.09-1.30) mmol/L Sodium (135-145) mmol/L Potassium (3.5-4.5) mmol/L Chloride (101-111) mmol/L Carbon Dioxide (21-32) mmol/L Anion Gap (6-13) BUN (6-20) mg/dL Creatinine (0.6-1.3) mg/dL Estimated GFR (MDRD) (>89) Glucose (74-104) mg/dL POC Whole Bld Glucose 133 (70-100) mg/dL Estimat Average Glucose (70-100) mg/dL Hemoglobin A1c % (4.27-6.07) % Calcium (8.5-10.3) mg/dL Phosphorus (2.5-5.0) mg/dL Magnesium (1.7-2.3) mg/dL Total Bilirubin (0.2-1.0) mg/dL AST (10-42) IU/L ALT (10-60) IU/L Alkaline Phosphatase (42-121) IU/L Total Protein (6.4-8.9) g/dL Albumin (3.2-5.5) g/dL Globulin (2.1-4.2) g/dL Albumin/Globulin Ratio (1.0-2.2) Lipase (11-82) U/L Urine Color Urine Clarity (CLEAR) Urine pH (5.0-7.5) PH Ur Specific Atwood (1.002-1.030) Urine Protein (NEGATIVE) mg/dL Urine Glucose (UA) (NEGATIVE) mg/dL Urine Ketones (NEGATIVE) mg/dL Urine Occult Blood (NEGATIVE) Urine Nitrite (NEGATIVE) Urine Bilirubin (NEGATIVE) Urine Urobilinogen (NORMAL) E.U./dL Ur Leukocyte Esterase (NEGATIVE) Urine RBC (0-5) /HPF Urine WBC (0-5) /HPF Ur Squamous Epith Cells (<= Few) Urine Crystals /LPF Urine Bacteria (None Seen) /HPF Urine Casts /LPF Ur Microscopic Review Urine Culture Comments Nasal Screen MRSA (PCR) NEGATIVE (NEGATIVE) Blood Type O POSITIVE Antibody Screen NEGATIVE Crossmatch IS Only See Detail Diagnostic Imaging Results Diagnostic Imaging Results: positive Final report reviewed Review of Systems Constitutional Reports: Fatigue, Chills, Weakness, Poor appetite and Weight loss; Denies: Fever or Malaise Eyes Denies: Pain, Irritation, Blurry vision, Vision loss or Diplopia Ears, nose, mouth, and throat Denies: Nose bleeds, Nasal discharge, Mouth lesions, Bleeding gums or Neck pain Cardiovascular Denies: Irregular heart rate, chest pain, palpitations, edema, Syncope or shortness of breath with exertion Respiratory Denies: Shortness of breath, Cough, Sputum production or Wheezing Gastrointestinal Reports: Abdominal pain, Abdominal distention, Nausea, Vomiting, Poor appetite, Constipation, Feeling full early and Change in bowel habits; Denies: Heartburn, Diarrhea or Blood in stool Genitourinary Denies: Painful urination, Urinary frequency or Urinary urgency Musculoskeletal Denies: Back pain, Neck pain, Extremity pain or Extremity swelling Integumentary/Breast Denies: Rash, Itching, Dryness, Redness or Skin pain Neurological Reports: General weakness; Denies: Headache, Weakness in extremities, Numbness in extremities, Abnormal gait or Dizziness Psychiatric Denies: Depression, Anxiety, Mood swings or Panic attacks Endocrine Reports: Fatigue; Denies: Excessive urination or Excessive thirst Hematologic/Lymphatic Denies: Anemia Allergic/Immunologic Denies: Hives, Tongue swelling, Facial swelling or Wheezing Exam Exam Vital Signs: Vital Signs x48h Temp Pulse Pulse Resp BP BP Pulse Ox 04/27/25 13:00 60 18 115/69 96 04/27/25 12:38 60 92/58 L 04/27/25 12:30 92/58 L 04/27/25 12:00 98.1 F 60 15 109/62 95 04/27/25 11:42 117/68 04/27/25 11:35 111/74 04/27/25 11:30 117/72 04/27/25 11:25 117/68 04/27/25 11:20 111/69 04/27/25 11:15 125/83 04/27/25 11:10 118/77 04/27/25 11:08 97.9 F 04/27/25 11:05 114/71 04/27/25 11:00 119/76 04/27/25 10:55 116/75 04/27/25 10:00 60 12 103/62 99 04/27/25 09:00 60 16 106/68 98 04/27/25 08:00 97.8 F 60 14 113/77 98 04/27/25 07:00 61 12 99/66 97 Constitutional abnormal general appearance (appears older than stated age) and (frail appearing), no apparent distress, abnormal body habitus (thin) and (underweight) and no limitations HENMT normocephalic, head/scalp atraumatic and hearing grossly normal bilaterally Eyes PERRL, EOMs intact bilaterally and conjunctivae normal Neck/C-Spine visual inspection normal, trachea midline and cervical spine nontender Chest inspection of chest normal Respiratory breath sounds equal bilaterally, normal respiratory effort, clear to auscultation bilaterally, no wheezes, no rales and no retractions Cardiovascular normal heart rate noted, rhythm abnormal (irregular), no gallop, no rub and no murmur Gastrointestinal Midline incision with Band-Aid on top of it. 2 DEMETRIA drains noted with serosanguineous drainage. G-tube, J-tube in place. No erythema, swelling, induration or fluctuance around site. Genitourinary no CVA tenderness and bladder normal to palpation Back/Pelvis spine normal to inspection, no thoracic spine tenderness and no lumbar spine tenderness Extremities normal to inspection, normal to palpation, no tenderness and full ROM Neurology no movement abnormality noted LUE and LLE with mild weakness to flexion and extension. No sensory deficits noted. Psychiatry mental status grossly normal, oriented x3, thought process normal, cooperative and affect normal Skin skin color normal, no rash, no lesions and no wounds Conclusion/Plan Problem List (1) Perforated abdominal viscus: Plan: Patient presents with acute on chronic abdominal pain. Vitally stable, labs largely within normal limits. CT abdomen/pelvis shows free air, likely related to a perforated ulcer. Taken emergently to the OR on 04/26ex lap was completed with Talha patch repair of perforated gastric ulcer, gastrostomy tube placement, as well as jejunostomy tube placement. 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 Currently admitted to the ICU for further medical management and close monitoring. Strict n.p.o., for at least 48 hours. Continue gentle IV fluid rehydration. IV vancomycin, Zosyn, and fluconazole ordered due to perforation. This free fluid was sent for cultures, pending. General Surgery folowing. (2) Cerebrovascular accident (CVA): Plan: Remains with mild left-sided deficits. Not on any aspirin or statin. Qualifiers: CVA mechanism: thrombosis Laterality of affected vessel: right P recerebral and cerebral artery: middle cerebral artery Qualified Code(s): I 63.311 - Cerebral infarction due to thrombosis of right middle cerebral artery (3) HTN (hypertension): Plan: History of hypertension. Takes metoprolol for this as well as for atrial fibrillation. Qualifiers: Hypertension type: unspecified Qualified Code(s): I10 - Essential (primary) hypertension (4) Afib: Plan: History of atrial fibrillation. On Eliquis and metoprolol. Hold Eliquis at this time. Qualifiers: Atrial fibrillation type: unspecified Qualified Code(s): I48.91 - Unspecified atrial fibrillation (5) History of pacemaker: Plan: Currently in paced rhythm. (6) Diabetes mellitus: Plan: A1c ordered. Per family, with 100 pound weight loss, this is now essentially diet controlled. Monitor off sliding scale insulin at this time. Qualifiers: Diabetes mellitus complication status: without complication Diabetes mellitus senior living insulin use: without termite treater use Diabetes mellitus type: t ype 2 Qualified Code(s): E11.9 - Type 2 diabetes mellitus without complications Lab Results Lab results reviewed: Yes 04/27/25 05:32 04/27/25 05:32 Diagnostic Imaging Results Diagnostic Imaging Results: positive Final report reviewed
--- OUTSIDE RECORDS SUMMARY | 2025-04-26 16:28 | EXTERNAL MEDICAL SUMMARY RPT | Continuity of Care Document ---
Author Organization [facility] Address [address] [place] [id number] Phone Problems date description facility 2025-02-02 14:28 Constipation, unspecified [facility] 2025-02-02 14:28 Unspecified abdominal pain [facility] 2025-02-02 14:28 Nausea [facility] 2025-04-26 12:12 Other specified symp toms and signs involving the digestive system and abdomen [facility] Results/Labs test date facility value unit notes Result panel 1 LIPASE 2025-04-26 07:52 [facility] < 10 u/l As of January 2023 testing method has changed, this may include reference ranges. NUCLEATED RED BLOOD CELLS AUTO 2025-04-26 07:52 [facility] 0.0 /100wbc (missing) BASOPHILS # (AUTO) 2025-04-26 07:52 [facility] 0.0 10 3/ul (missing) EOSINOPHILS # (AUTO) 2025-04-26 07:52 [facility] 0.0 10 3/ul (missing) NRBC ABSOLUTE COUNT (AUTO) 2025-04-26 07:52 [facility] 0.00 x10 3/ul (missing) MONOCYTES # (AUTO) 2025-04-26 07:52 [facility] 0.3 10 3/ul (missing) LYMPHOCYTES # (AUTO) 2025-04-26 07:52 [facility] 0.5 10 3/ul (missing) BILIRUBIN,TOTAL 2025-04-26 07:52 [facility] 0.6 mg /dl As of January 2023 testing method has changed, this may include reference ranges. CREATININE 2025-04-26 07:52 [facility] 0.7 mg/dl As of January 2023 testing method has changed, this may include reference ranges. ALBUMIN/GLOBULIN RATIO 2025-04-26 07:52 [facility] 1.5 (missing) (missing) CHLORIDE 2025-04-26 07:52 [facility] 102 mmol/l As of January 2023 testing method has changed, this may include reference ranges. ANION GAP 2025-04-26 07:52 [facility] 11.0 (missing ) (missing) AST ASPARTATE AMINOTRANSFERASE 2025-04-26 07:52 [facility] 12 iu/l As of January 2023 testing method has changed, this may include reference ranges. SODIUM 2025-04-26 07:52 [facility] 139 mmol/l (missing) GLUCOSE 2025-04-26 07:52 [facility] 147 mg/dl As of January 2023 testing method has changed, this may include reference ranges. RED CELL DISTRIBUTION WIDTH 2025-04-26 07:52 [facility] 19.4 % (missing) GLOBULIN 2025-04-26 07:52 [facility] 2.6 g/dl (missing) MEAN CORPUSCULAR HEMOGLOBIN 2025-04-26 07:52 [facility] 23.9 pg (missing) CARBON DIOXIDE - CO2 2025-04-26 07:52 [facility] 26 mmol/l As of January 2023 testing method has changed, this may include reference ranges. MEAN CORPUSCULAR HGB CONC 2025-04-26 07:52 [facility] 27.8 g/dl (missing) BUN - BLOOD UREA NITROGEN 2025-04-26 07:52 [facility] 28 mg/dl As of Jan testing method has changed, this may include reference ranges. POTASSIUM 2025-04-26 07:52 [facility] 3.7 mmol/l As of January 2023 testing method has changed, this may include reference ranges. RED BLOOD COUNT 2025-04-26 07:52 [facility] 3.76 10 6/ul (missing) HCT - HEMATOCRIT 2025-04-26 07:52 [facility] 32.4 % (missing) PLT - PLATELET COUNT 2025-04-26 07:52 [facility] 323 10 3/ul (missing) ALBUMIN 2025-04-26 07:52 [facility] 4.0 g/dl As of January 2023 testing method has changed, this may include reference ranges. ALKALINE PHOSPHATASE 2025-04-26 07:52 [facility] 48 iu/l As of January 2023 testing method has changed, this may include reference ranges. ALT ALANINE AMINOTRANSFERASE 2025-04-26 07:52 [facility] 5 iu/l As of January 2023 testing method has changed, this may include reference ranges. TOTAL PROTEIN 2025-04-26 07:52 [facility] 6.6 g/dl As of January 2023 testing method has changed, this may include reference ranges. NEUTROPHILS # (AUTO) 2025-04-26 07[facility] 10 3/ul (missing) GFR - MDRD 2025-04-26 07:52 [facility] 83 (kobe jada) Social History date description facility
--- NOTE | 2025-04-26 16:36 | OPERATIVE REPORT ---
Operative Report General Admit Date: 04/26/25 Procedure Data: Operation Date: 04/26/25 11:15 Proposed Procedures p Exploratory Laparotomy(Not Applicable) - Ro Odell DO Actual procedure: Exploratory laparotomy Talha patch repair of perforated gastric (pyloric) ulcer Pyloric Exclusion Gastrostomy tube placement Jejunostomy tube placement Bilateral transversus abdominus plane blocks Anesthesia Type General Case Staff Anesthesia Provider: Filiberto Garland Case Times Into Recovery: 04/26/25 15:56 Procedure Start: 04/26/25 12:25 Time out: 04/26/25 12:24 Class IV case - purulent peritonitis Pre-Op Diagnosis: perforated pyloric ulcer Post Op Diagnosis: Perforated pyloric ulcer, 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 1yr of abdominal pain and 100lb unintentional weight loss. Heartburn "all the time" for which she takes tums "all the time". 3-7d of acutely worsened pain associated with PO intolerance and nonbloody emesis. Denies h/o melena/hematochezia. Lives with her son Nolberto, who assists her with cooking and bathing. 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 Records from 2018 indicate h/o of HTN, HLD, DM. No prior surgeries other than the pacemaker. In the ED she is GCS15/HDN/AF. She has a nondistended abdomen with involuntary guarding, though her subjective pain and tenderness on exam is significantly improved with pain meds in the ED. WBC normal, Hgb 9 (7.6 in January). CMP fairly normal, no CARTER, BG 140s. CT with free air and free fluid around the epigastrium/duodenum, c/w perforated gastric/duodenal ulcer; also c/w history of severe heartburn without PPI therapy. Considering the year of abdominal pain and 100lb weight loss (and dilated proximal duodenum on CT), also suspicious for malignant ulcer. Findings: Purulent fluid in the pelvis, bilious-purulent fluid in the epigastrium. 5mm perforation on the anterior pylorus. Grossly consistent with a near-obstructing pyloric mass that was involving the distal hepatic ligament, prohibiting excision (would have required a Whipple). Posteriorly the transverse colon was adherent to the mass but ultimately had a plane it from the mass. Perforation edges sent for biopsy. Perforation approximately with a whipstich and talha patch closure. Stapled pyloric exclusion with 60mm green load TA. Venting G tube (22F). Feeding J tube (18F). 2 DEMETRIA drains placed - right DEMETRIA is posterior to talha patch in RUQ. left DEMETRIA is along left lateral abdomen, lateral to fresh G and J tubes Complications: none Other Other Information/Narrative: The patient was transferred from the emergency room to the operating room, and placed supine on the operating room table with the left arm tucked. General anesthesia was induced by the anesthesia service. The patient was administered zosyn, vancomycin, and fluconazole. The abdomen was prepped and draped in standard sterile fashion. A andrews catheter was placed. A final timeout was performed with all members of the team being in agreement. An upper abdominal vertical midline incision was made sharply from the xiphoid to just below the umbilicus. The subcutaneous tissues and fascia were divided with bovie electrocautery. The peritoneum was divided sharply and safe peritoneal entry was confirmed before the remainder of the peritoneum was opened with cautery. A bookwalter retractor was placed and body wall retractors positioned in 4 directions to expose the abdomen. The abdomen was explored. There was bilious-purulent fluid in the right upper quadrant and pelvis; there was very little solid gastric contents in the epigastrium. The obvious contamination was suctioned from the abdomen. Attention was directed toward the pylorus based on the preoperative CT scan, and a 5mm perforation was seen at the anterior aspect of the pylorus, with active spillage of gastric-bilious fluid. The pylous was palpated and found to contain at hard immobile mass, measuring approximately 5-8cm in each dimension, highly suspicious of malignancy. The gastrohepatic ligament was opened allowing access to the lesser sac. The area of the pancreas was prominent, potentially suspicious for lymphadenopathy. The greater omentum was divided with the Ligasure allowing access to the lesser sac from the inferior direction; the transverse colon was adherent to the posterior aspect of the transverse colon, suspicious for malignant involvement. With further careful blunt and sharp dissection, a plane of dissection was found and the transverse colon was able to be from the pyloric mass. Attention was directed toward the right upper quadrant and a jennifer maneuver was performed, allowing inspection of the posterior aspect of the duodenum. A direct posterior plane posterior to the duodenum was not able to be safely created, secondary to the involvement of the mass. Attention was directed to the hepatic ligament - having completed a jennifer maneuver, a finger was passed behind the hepatic ligament through the foramen of lauren; the pyloric mass was unable to be from the distal/inferior hepatic ligament; this area was highly suspicious for malignant involvement of the pyloric mass into the hepatic ligament and bile ducts. It was felt that this mass was unresectable, short of a whipple procedure. Palpation of the right lobe of the liver revealed small punctate nodules at the most superior aspect, against the diaphragm; these nodules were not able to be visualized or safely biopsied. There was no other obvious carcinomatosis throughout palpation of the entire abdomen. Portions of the falciform ligament and omentum were sent for pathology simply because the falciform was prohibiting visualization and a portion of the omentum became ischemia after division. Having determined that the pyloric ulcer appeared malignant, near-obstructing, and unresectable, I proceeded with a palliative operation. The edges of the perforated ulcer were sharply removed and sent for biopsy. The perforated opened was "whipstitched" closed with a running 2-0 Vicryl, and then an omental talha patch was secured over the closure with 2-0 silk suture. A 19F round drain was placed posterior-lateral to the perforation in the right upper quadrant, and brought out through a separate stab incision in the right abdomen, secured with 2-0 nylon suture. I was concerned that the talha patch would not seal to the perforation on account of it likely being tumor, and so a stapled pyloric exclusion was performed using a 60mm green load TA stapler, to limit potential leak of gastric fluid from the malignant perforation. A 22F gastrostomy tube was placed though a left upper quadrant stab incision and into an anterior gastrotomy, the balloon was inflated in the gastric lumen. The gastrotomy was closed around the tube with a 2-0 vicryl purse string, and the anterior gastric wall was secured to the anterior abdominal wall with 2-0 silk in four quadrants around the gastrostomy tube. A 18F straight catheter was brought through a left abdominal stab incision and into the jejunum, 30cm distal to the ligament of treitz. This was secured with a 2-0 Vicryl purse string suture around the catheter, a 2-0 nylon suture at the skin, as well as a series of Witzel stitches to secure the jejunostomy tube. A second 19F round drain was placed along the left abdomen, lateral to the gastostromy and jejunostomy tubes, and brought out through a separate stab incision. The abdomen was irrigated with 6L of warm normal saline to clear all contamination. 30cc of bupivicaine was diluted with 30cc of normal saline, and used to administer bilateral TAP blocks. The fascia was closed with 0 PDS looped PDS x2 from each direction. The subcutaneous tissue was irrigated. The skin was closed with loosely with eleno. A silver-impregnated dressing was placed. Drain sponges were placed at all drains. The andrews catheter was left in place. The patient was awoken from general anesthesia. The patient tolerated the procedure without any hemodynamic instability. There were no complications. All sponge and needle counts were correct. The patient was transferred to the PACU in good condition. Ro Odell DO, JOSE ANGEL General Surgeon, [place]
[2025-04-26] MEDS ORDERED: ONDANSETRON ODT 4 MG TABLET TL PRN (17:08)
--- NOTE | 2025-04-26 17:11 | ANESTHESIA POST OP EVALUATION ---
Anesthesia Post Eval Post Anesthesia Eval Vitals: Last Vital Signs Temp 36.1 C L 04/26/25 16:45 Pulse 60 04/26/25 16:45 Resp 15 04/26/25 16:45 BP 115/74 04/26/25 16:45 Pulse Ox 98 04/26/25 16:45 O2 Flow Rate 10 04/26/25 16:15 CV Function Including HR & BP: Stable Pain Control: Satisfactory Nausea & Vomiting: Negative Mental Status: Baseline Respiratory Status: Airway Patent Hydration Status: Satisfactory Anesthesia Complications: None
[2025-04-26] MEDS: VANCOMYCIN INJ 500 MG in SODIUM CHLORIDE 0.9% 250 ML IV ONE (17:21)
[2025-04-26] MEDS: ALBUMIN 25% 12.5 GM/50 ML VIAL IV STA (17:21)
[2025-04-26 17:44] LABS: GLUCOSE, URINE (UA) NEGATIVE (NEGATIVE); KETONES,URINE (UA) 15 mg/dL (NEGATIVE); OCCULT BLOOD,URINE MODERATE (NEGATIVE)
[2025-04-26] MEDS ORDERED: ACETAMINOPHEN 1,000 MG/100 ML 1,000 MG/100 ML BAG IV PRN (17:46)
[2025-04-26] MEDS: KETOROLAC 15 MG/ML VIAL IVP ONE (17:51)
[2025-04-26] MEDS: METOPROLOL 5 MG/5 ML VIAL IVP SCH (17:52)
[2025-04-26] MEDS: DEXTROSE 5%-0.45% NACL 1,000 ML IV SCH (17:53)
[2025-04-26] MEDS: ACETAMINOPHEN 1,000 MG/100 ML 1,000 MG/100 ML BAG IV SCH (17:53)
[2025-04-26] MEDS: PIPERACILLIN/TAZOBACTAM 4.5 GM in SODIUM CHLORIDE 0.9% MINIBAG 100 ML IV SCH (17:53)
[2025-04-26] MEDS: SODIUM CHLORIDE FLUSH 0.9% 10 ML SYRINGE IVP SCH (17:53)
[2025-04-26 18:01] LABS: CASTS, URINE 3-5 Fine Granular /LPF; SQUAMOUS EPITHELIAL CELL,UR RARE Squamous (<= Few)
[2025-04-26 18:02] LABS: CRYSTALS,URINE 0-2 Uric Acid /LPF
[2025-04-26] MEDS: HYDROmorphone 0.5 MG/0.5 ML SYRINGE IVP PRN (18:14)
[2025-04-26] MEDS: FLUCONAZOLE 200 MG/100 ML 100 ML IV SCH (18:14)
[2025-04-26] MEDS: LACTATED RINGERS 1,000 ML IV ONE ×2 (21:16→22:11)
[2025-04-26] MEDS: PANTOPRAZOLE 40 MG VIAL IVP SCH (21:18)
[2025-04-26] MEDS: VANCOMYCIN INJ 500 MG in SODIUM CHLORIDE 0.9% MINIBAG 100 ML IV SCH (21:26)
[2025-04-26] MEDS ORDERED: ACETAMINOPHEN 1,000 MG/100 ML 1,000 MG/100 ML BAG IV SCH (22:00)
[2025-04-26 22:29] LABS: HCT - HEMATOCRIT 25.1 % (37.0-47.0); MEAN PLATELET VOLUME 10.1 fL (7.9-10.8); NRBC ABSOLUTE COUNT (AUTO) 0.00 x10^3/uL; NUCLEATED RED BLOOD CELLS AUTO 0.0 /100WBC; PLT - PLATELET COUNT 181 10^3/uL (130-450); RED CELL DISTRIBUTION WIDTH 19.4 % (12.0-15.0)
[2025-04-26 22:32] LABS: HGB - HEMOGLOBIN 6.9 g/dL (12.0-16.0)
[2025-04-26 22:43] LABS: BUN - BLOOD UREA NITROGEN 22.0 mg/dL (6-20); CARBON DIOXIDE - CO2 19.0 mmol/L (21-32); CREATININE 0.5 mg/dL (0.6-1.3); GFR - MDRD 123.0 (>89)
[2025-04-26] MEDS: NOREPINEPHRINE/0.9 % NS 8 MG/250 ML BAG IV SCH (23:00)
[2025-04-27] MEDS: COD LIVER OIL/ZINC OXIDE 113 GM TUBE TOP PRN (04:42)
[2025-04-27 05:48] LABS: HCT - HEMATOCRIT 33.0 % (37.0-47.0); HGB - HEMOGLOBIN 10.0 g/dL (12.0-16.0); MEAN PLATELET VOLUME 9.1 fL (7.9-10.8); NRBC ABSOLUTE COUNT (AUTO) 0.00 x10^3/uL; NUCLEATED RED BLOOD CELLS AUTO 0.0 /100WBC; PLT - PLATELET COUNT 235 10^3/uL (130-450); RED CELL DISTRIBUTION WIDTH 17.6 % (12.0-15.0)
[2025-04-27 05:58] LABS: ALT ALANINE AMINOTRANSFERASE 8.0 IU/L (10-60); AST ASPARTATE AMINOTRANSFERASE 17.0 IU/L (10-42); BUN - BLOOD UREA NITROGEN 23.0 mg/dL (6-20); CARBON DIOXIDE - CO2 22.0 mmol/L (21-32); CREATININE 0.7 mg/dL (0.6-1.3); GFR - MDRD 83.0 (>89)
[2025-04-27 05:59] LABS: PHOSPHORUS 3.6 mg/dL (2.5-5.0)
[2025-04-27 06:22] LABS: VBG PH 7.330 (7.31-7.41)
[2025-04-27] MEDS: MAGNESIUM SULFATE 2 GRAM 2 GM/50 ML BAG IV SCH (06:43)
[2025-04-27] MEDS ORDERED: FLUCONAZOLE 200 MG/100 ML 50 ML IV SCH (09:00)
[2025-04-27 09:03] LABS: ESTIMATED AVERAGE GLUCOSE 100 mg/dL (70-100); HEMOGLOBIN A1c% 5.1 % (4.27-6.07)
[2025-04-27] MEDS: POTASSIUM CHLOR 10 MEQ/100 ML 10 MEQ/100 ML BAG IV SCH (09:11)
[2025-04-27] MEDS: LACTATED RINGERS 1,000 ML IV SCH (10:30)
--- NOTE | 2025-04-27 10:30 | PROVIDER PROGRESS NOTE ---
Subjective Prog Note Date Prog Note Date: 04/27/25 Prog Note Time: 10:26 Subjective Pt reports feeling: Improved Subjective: Significant overnight events include persistent hypotension requiring Levophed and decreased post-operative Hgb from 9.0 > 6.9 requiring 1u PRBC. She initially had increasing Levophed requirements overnight up to 8 mcg/min but has been tolerating weaning this morning. She has responded well to increasing IVF and a blood transfusion. Danielle reports feeling much better today compared to yesterday when she came to the ER. She has no pain and slept well last night. Has not ambulated yet. Her only concerns are if she can have something to drink and when she gets to go home. Current Medications Current Medications Current Medications: Current Medications Generic Name Dose Route Start Last Admin Trade Name Freq PRN Reason Stop Dose Admin Hydromorphone HCl 0.5 mg 04/26/25 17:46 04/27/25 04:42 Hydromorphone 0.5 Mg/0.5 Ml Syringe IVP 0.5 mg Q4H PRN Administration Severe Pain (Level 7-10) Piperacillin Sod/Tazobactam 100 mls @ 25 mls/hr 04/26/25 17:30 04/27/25 09:10 Sod 4.5 gm/ Sodium Chloride IV 25 mls/hr Q8H CINDY Administration Vancomycin HCl 500 mg/ Sodium 100 mls @ 100 mls/hr 04/26/25 21:00 04/27/25 09:36 Chloride IV 100 mls/hr Q12H CINDY Administration Fluconazole 100 mls @ 100 mls/hr 04/26/25 18:00 04/26/25 19:15 Diflucan 200 Mg/100 Ml IV Infused Q24H CINDY Infusion Acetaminophen 1,000 mg in 100 mls @ 400 mls/hr 04/26/25 17:46 Acetaminophen IV Q6HR PRN Moderate Pain (Level 4-6) Norepinephrine/Sodium Chloride 8 mg in 250 mls @ 15 mls/hr 04/26/25 22:00 04/27/25 05:00 Levophed 8 Mg/250-0.9% Nacl IV 4 mcg/min .[id number] CINDY 7.5 mls/hr Protocol Titration 8 MCG/MIN Acetaminophen 1,000 mg in 100 mls @ 400 mls/hr 04/27/25 12:00 Acetaminophen IV Q8H ON LICENSE OF [facility] Lactated Ringer's 1,000 mls @ 125 mls/hr 04/27/25 11:00 Lr IV .Q8H ON LICENSE OF [facility] Metoprolol Tartrate 5 mg 04/26/25 18:00 04/27/25 04:18 Metoprolol 5 Mg/5 Ml Vial IVP Not Given Q6HR CINDY Ondansetron HCl 4 mg 04/26/25 17:08 Ondansetron Odt 4 Mg Tablet TL Q6HR PRN Nausea / Vomiting Ondansetron HCl 4 mg 04/26/25 17:08 Ondansetron 4 Mg/2 Ml Vial IVP Q6HR PRN Nausea / Vomiting Pantoprazole Sodium 40 mg 04/26/25 21:00 04/27/25 09:05 Pantoprazole 40 Mg Vial IVP 40 mg BID CINDY Administration Sodium Chloride 10 ml 04/26/25 17:08 04/27/25 09:10 Sodium Chloride Flush 0.9% 10 Ml Syringe IVP 10 ml 0100,0900,1700 CINDY Administration Sodium Chloride 10 ml 04/26/25 17:08 Sodium Chloride Flush 0.9% 10 Ml Syringe IVP PRN PRN NEEDED PER PROVIDER ORDERS Zinc Oxide 113 gm 04/27/25 04:26 04/27/25 04:42 Cod Liver Oil/Zinc Oxide 113 Gm Tube TOP 1 applic PRN PRN Administration Skin Care Objective Vital Signs/Intake & Output Reviewed Vital Signs: Yes Vital Signs: Vital Signs x48h Temp Pulse Resp BP Pulse Ox 04/27/25 10:00 60 12 103/62 99 04/27/25 09:00 60 16 106/68 98 04/27/25 08:00 36.6 C 60 14 113/77 98 04/27/25 07:00 61 12 99/66 97 04/27/25 06:00 60 21 108/76 97 04/27/25 05:00 60 19 109/73 97 04/27/25 04:12 36.4 C L 61 15 108/68 97 04/27/25 03:00 36.5 C 61 12 100/68 97 Intake & Output: Intake & Output 04/24/25 04/25/25 04/26/25 04/27/25 23:59 23:59 23:59 23:59 Intake Total 4750 / 4750 3181 / 3181 Output Total 773 / 773 390 / 390 Balance 3977 / 3977 2791 / 2791 Weight (kg) 34.1 kg 39 kg Objective General Appearance: positive No acute distress and Alert Eyes Bilateral: positive Normal inspection ENT: positive No signs of dehydration Neck: positive Nml inspection and Trachea midline Respiratory: positive Chest non-tender, No respiratory distress and Breath sounds nml Cardiovascular: positive Regular rate & rhythm and No murmur Abdomen: positive Non-tender, No distention and Other (1 midline incision with silver dressing. G tube with brown fluid and particulates. J tube capped. Right and left DEMETRIA drains with minimal clear serosanguinous fluid. ); negative Tenderness, Guarding or Rebound Skin: positive Color nml, Warm and Dry Extremities: positive No pedal edema Neurologic/Psychiatric: positive Oriented x3 Lab Results 04/27/25 05:32 04/27/25 17:12 Other Labs: Lab Results x24hrs 04/27/25 04/27/25 04/26/25 Range/Units 05:32 00:20 22:19 WBC 7.6 4.2 L (4.8-10.8) x10^3/uL RBC 3.83 L 2.84 L (4.20-5.40) 10^6/uL Hgb 10.0 L 6.9 L* (12.0-16.0) g/dL Hct 33.0 L 25.1 L (37.0-47.0) % MCV 86.2 88.4 (81.0-99.0) fL MCH 26.1 L 24.3 L (27.0-31.0) pg MCHC 30.3 L 27.5 L (32.0-36.0) g/dL RDW 17.6 H 19.4 H (12.0-15.0) % Plt Count 235 181 (130-450) 10^3/uL MPV 9.1 10.1 (7.9-10.8) fL Neut # (Auto) 7.1 H 3.7 (1.5-6.6) 10^3/uL Lymph # (Auto) 0.3 L 0.3 L (1.5-3.5) 10^3/uL [place] # (Auto) 0.2 0.2 (0.0-1.0) 10^3/uL Eos # (Auto) 0.0 0.0 (0.0-0.7) 10^3/uL Baso # (Auto) 0.0 0.0 (0.0-0.1) 10^3/uL Absolute Nucleated RBC 0.00 0.00 x10^3/uL Nucleated RBC % 0.0 0.0 /100WBC VBG pH 7.330 (7.31-7.41) Ionized Calcium 1.11 (1.09-1.30) mmol/L Sodium 135 135 (135-145) mmol/L Potassium 3.7 3.7 (3.5-4.5) mmol/L Chloride 106 109 (101-111) mmol/L Carbon Dioxide 22 19 L (21-32) mmol/L Anion Gap 7.0 7.0 (6-13) BUN 23 H 22 H (6-20) mg/dL Creatinine 0.7 0.5 L (0.6-1.3) mg/dL Estimated GFR (MDRD) 83 L 123 (>89) Glucose 190 H 153 H (74-104) mg/dL POC Whole Bld Glucose 139 (70-100) mg/dL Estimat Average Glucose 100 (70-100) mg/dL Hemoglobin A1c % 5.1 (4.27-6.07) % Lactic Acid (0.5-2.2) mmol/L Calcium 7.7 L 7.2 L (8.5-10.3) mg/dL Phosphorus 3.6 (2.5-5.0) mg/dL Magnesium 1.3 L (1.7-2.3) mg/dL Total Bilirubin 1.3 H (0.2-1.0) mg/dL AST 17 (10-42) IU/L ALT 8 L (10-60) IU/L Alkaline Phosphatase 25 L (42-121) IU/L C-Reactive Protein (<0.5) mg/dL Total Protein 4.9 L (6.4-8.9) g/dL Albumin 3.0 L (3.2-5.5) g/dL Globulin 1.9 L (2.1-4.2) g/dL Albumin/Globulin Ratio 1.6 (1.0-2.2) Prealbumin (17-34) mg/dL Lipase 33 (11-82) U/L Urine Color Urine Clarity (CLEAR) Urine pH (5.0-7.5) PH Ur Specific [place] (1.002-1.030) Urine Protein (NEGATIVE) mg/dL Urine Glucose (UA) (NEGATIVE) mg/dL Urine Ketones (NEGATIVE) mg/dL Urine Occult Blood (NEGATIVE) Urine Nitrite (NEGATIVE) Urine Bilirubin (NEGATIVE) Urine Urobilinogen (NORMAL) E.U./dL Ur Leukocyte Esterase (NEGATIVE) Urine RBC (0-5) /HPF Urine WBC (0-5) /HPF Ur Squamous Epith Cells (<= Few) Urine Crystals /LPF Urine Bacteria (None Seen) /HPF Urine Casts /LPF Ur Microscopic Review Urine Culture Comments Nasal Screen MRSA (PCR) (NEGATIVE) Blood Type Blood Type Recheck Antibody Screen Crossmatch IS Only 04/26/25 04/26/25 04/26/25 Range/Units 17:59 17:13 17:05 WBC (4.8-10.8) x10^3/uL RBC (4.20-5.40) 10^6/uL Hgb (12.0-16.0) g/dL Hct (37.0-47.0) % MCV (81.0-99.0) fL MCH (27.0-31.0) pg MCHC (32.0-36.0) g/dL RDW (12.0-15.0) % Plt Count (130-450) 10^3/uL MPV (7.9-10.8) fL Neut # (Auto) (1.5-6.6) 10^3/uL Lymph # (Auto) (1.5-3.5) 10^3/uL [place] # (Auto) (0.0-1.0) 10^3/uL Eos # (Auto) (0.0-0.7) 10^3/uL Baso # (Auto) (0.0-0.1) 10^3/uL Absolute Nucleated RBC x10^3/uL Nucleated RBC % /100WBC VBG pH (7.31-7.41) Ionized Calcium (1.09-1.30) mmol/L Sodium (135-145) mmol/L Potassium (3.5-4.5) mmol/L Chloride (101-111) mmol/L Carbon Dioxide (21-32) mmol/L Anion Gap (6-13) BUN (6-20) mg/dL Creatinine (0.6-1.3) mg/dL Estimated GFR (MDRD) (>89) Glucose (74-104) mg/dL POC Whole Bld Glucose 145 (70-100) mg/dL Estimat Average Glucose (70-100) mg/dL Hemoglobin A1c % (4.27-6.07) % Lactic Acid (0.5-2.2) mmol/L Calcium (8.5-10.3) mg/dL Phosphorus (2.5-5.0) mg/dL Magnesium (1.7-2.3) mg/dL Total Bilirubin (0.2-1.0) mg/dL AST (10-42) IU/L ALT (10-60) IU/L Alkaline Phosphatase (42-121) IU/L C-Reactive Protein (<0.5) mg/dL Total Protein (6.4-8.9) g/dL Albumin (3.2-5.5) g/dL Globulin (2.1-4.2) g/dL Albumin/Globulin Ratio (1.0-2.2) Prealbumin (17-34) mg/dL Lipase (11-82) U/L Urine Color YELLOW Urine Clarity CLEAR (CLEAR) Urine pH 6.0 (5.0-7.5) PH Ur Specific [place] 1.015 (1.002-1.030) Urine Protein 30 H (NEGATIVE) mg/dL Urine Glucose (UA) NEGATIVE (NEGATIVE) mg/dL Urine Ketones 15 H (NEGATIVE) mg/dL Urine Occult Blood MODERATE (NEGATIVE) Urine Nitrite NEGATIVE (NEGATIVE) Urine Bilirubin NEGATIVE (NEGATIVE) Urine Urobilinogen 0.2 (NORMAL) (NORMAL) E.U./dL Ur Leukocyte Esterase NEGATIVE (NEGATIVE) Urine RBC 6-10 H (0-5) /HPF Urine WBC 0-3 (0-5) /HPF Ur Squamous Epith Cells RARE Squamous (<= Few) Urine Crystals 0-2 Uric Acid /LPF Urine Bacteria None Seen (None Seen) /HPF Urine Casts 3-5 Fine Granular /LPF Ur Microscopic Review INDICATED Urine Culture Comments NOT INDICATED Nasal Screen MRSA (PCR) NEGATIVE (NEGATIVE) Blood Type Blood Type Recheck Antibody Screen Crossmatch IS Only 04/26/25 04/26/2504/26/25 Range/Units 16:05 11:11 07:52 WBC (4.8-10.8) x10^3/uL RBC (4.20-5.40) 10^6/uL Hgb (12.0-16.0) g/dL Hct (37.0-47.0) % MCV (81.0-99.0) fL MCH (27.0-31.0) pg MCHC (32.0-36.0) g/dL RDW (12.0-15.0) % Plt Count (130-450) 10^3/uL MPV (7.9-10.8) fL Neut # (Auto) (1.5-6.6) 10^3/uL Lymph # (Auto) (1.5-3.5) 10^3/uL [place] # (Auto) (0.0-1.0) 10^3/uL Eos # (Auto) (0.0-0.7) 10^3/uL Baso # (Auto) (0.0-0.1) 10^3/uL Absolute Nucleated RBC x10^3/uL Nucleated RBC % /100WBC VBG pH (7.31-7.41) Ionized Calcium (1.09-1.30) mmol/L Sodium (135-145) mmol/L Potassium (3.5-4.5) mmol/L Chloride (101-111) mmol/L Carbon Dioxide (21-32) mmol/L Anion Gap (6-13) BUN (6-20) mg/dL Creatinine (0.6-1.3) mg/dL Estimated GFR (MDRD) (>89) Glucose (74-104) mg/dL POC Whole Bld Glucose 133 (70-100) mg/dL Estimat Average Glucose (70-100) mg/dL Hemoglobin A1c % (4.27-6.07) % Lactic Acid 1.5 (0.5-2.2) mmol/L Calcium (8.5-10.3) mg/dL Phosphorus (2.5-5.0) mg/dL Magnesium (1.7-2.3) mg/dL Total Bilirubin (0.2-1.0) mg/dL AST (10-42) IU/L ALT (10-60) IU/L Alkaline Phosphatase (42-121) IU/L C-Reactive Protein < 0.5 (<0.5) mg/dL Total Protein (6.4-8.9) g/dL Albumin (3.2-5.5) g/dL Globulin (2.1-4.2) g/dL Albumin/Globulin Ratio (1.0-2.2) Prealbumin 11 L (17-34) mg/dL Lipase (11-82) U/L Urine Color Urine Clarity (CLEAR) Urine pH (5.0-7.5) PH Ur Specific [place] (1.002-1.030) Urine Protein (NEGATIVE) mg/dL Urine Glucose (UA) (NEGATIVE) mg/dL Urine Ketones (NEGATIVE) mg/dL Urine Occult Blood (NEGATIVE) Urine Nitrite (NEGATIVE) Urine Bilirubin (NEGATIVE) Urine Urobilinogen (NORMAL) E.U./dL Ur Leukocyte Esterase (NEGATIVE) Urine RBC (0-5) /HPF Urine WBC (0-5) /HPF Ur Squamous Epith Cells (<= Few) Urine Crystals /LPF Urine Bacteria (None Seen) /HPF Urine Casts /LPF Ur Microscopic Review Urine Culture Comments Nasal Screen MRSA (PCR) (NEGATIVE) Blood Type O POSITIVE Blood Type Recheck O POSITIVE Antibody Screen NEGATIVE Crossmatch IS Only See Detail Other Results/Comments Other Results/Comments: Urine output calculated to 1.5cc/kg/h. Left DEMETRIA 285ml and right DEMETRIA 215ml since placement. ABX Reporting Has patient been on IV antibiotics over the past 48 hours?: Yes Assessment/Plan Problem List (1) Perforated abdominal viscus: Impression: Assessment: Danielle is a 69yoF with a history of anemia, weight loss, and chronic heartburn now POD#1 from an exploratory laparotomy with zachary patch for perforated pyloric ulcer, pyloric exclusion, G tube and J tube placement. Overnight, she had persistent hypotension requiring Levophed and a decreased post-operative Hgb from 9.0 > 6.9 requiring 1u PRBC. Differential diagnosis includes acute intraperitoneal or intraluminal GI bleed, sepsis, and volume depletion. Low suspicion for active bleeding as Hgb improved from 6.9 >10.0 with 1u PRBC and she has minimal drain output in the G tube, right DEMETRIA, and left DEMETRIA drain without any kasia blood. Low suspicion for sepsis due to normal WBC, afebrile, and is currently on broad spectrum antibiotics. Her hypotension is likely caused by volume depletion given her improvement with increased IVF and a blood transfusion. Her Cr is normal but having fluctuations in urine output. Plan: 1) Hypotension - She initially had increasing Levophed requirements up to 8 mcg/min but has been tolerating weaning and the pump is now paused. If her BP/MAP decreases and we need to re-start Levophed, plan to simultaneously give fluid bolus. Increased IVF from D5NS 75ml/h to LR 125ml/h. Continue to monitor urine output and Cr with daily CBC. 2) Anemia - Hgb 9.0 > 6.9 > 1u PRBC > 10.0. Plan to re-check Hgb this afternoon. Continue to monitor drain output for kasia bleeding. 3) FEN - Daily CMP. Mg 1.3 and K 3.7, repletion ordered to a goal of Mg>2 and K>4. Continue with LR 125ml/h. G tube is for venting only, no enteral nutrition. She may have sips of water or ice chips for dry mouth. Per nutrition recommendations, plan to start PPN tonight with a total fluid goal of 125ml/h. If she remains stable, can trial J tube 48h post-operatively. 4) ID - Daily CBC. Day 2 Zosyn, Vancomycin and Fluconazole. WBC within normal limits. Afebrile. Aerobes wound culture resulted with yeast, others still pending. 5) Ambulation - PT/OT ordered. 6) Pain - Well controlled. Continue with scheduled Acetaminophen and PRN Dilaudid. Repeat Hgb this afternoon, if stable plan to add scheduled Toradol. 7) DVT prophylaxis - SCDs. Repeat Hgb this afternoon, if stable plan to start Lovenox tonight. 8) Heartburn/ulcer - Continue with PPI 40mg BID.
--- NOTE | 2025-04-27 11:12 | PROVIDER PROGRESS NOTE ---
Subjective Subjective Subjective: This morning, patient is doing well. She states her pain is well-controlled. She states it is much better than it was before. She has only had a few doses of IV Dilaudid. She denies any fevers or chills. She denies any nausea. Diet: NPO, PPN at 8 PM abhishekiht DVT: SCDs; likely will start heparin subq in next 24-48 hours Code: Full Code Dispo: SNF vs Home with HH, pending clinical course Current Medications Current Medications Current Medications: Current Medications Generic Name Dose Route Start Last Admin Trade Name Freq PRN Reason Stop Dose Admin Hydromorphone HCl 0.5 mg 04/26/25 17:46 04/27/25 04:42 Hydromorphone 0.5 Mg/0.5 Ml Syringe IVP 0.5 mg Q4H PRN Administration Severe Pain (Level 7-10) Piperacillin Sod/Tazobactam 100 mls @ 25 mls/hr 04/26/25 17:30 04/27/25 09:10 Sod 4.5 gm/ Sodium Chloride IV 25 mls/hr Q8H CINDY Administration Vancomycin HCl 500 mg/ Sodium 100 mls @ 100 mls/hr 04/26/25 21:00 04/27/25 11:10 Chloride IV Infused Q12H CINDY Infusion Fluconazole 100 mls @ 100 mls/hr 04/26/25 18:00 04/26/25 19:15 Diflucan 200 Mg/100 Ml IV Infused Q24H CINDY Infusion Acetaminophen 1,000 mg in 100 mls @ 400 mls/hr 04/26/25 17:46 Acetaminophen IV Q6HR PRN Moderate Pain (Level 4-6) Norepinephrine/Sodium Chloride 8 mg in 250 mls @ 15 mls/hr 04/26/25 22:00 04/27/25 10:55 Levophed 8 Mg/250-0.9% Nacl IV 2 mcg/min .[id number] CINDY 3.75 mls/hr Protocol Titration 8 MCG/MIN Acetaminophen 1,000 mg in 100 mls @ 400 mls/hr 04/27/25 12:00 Acetaminophen IV Q8H CINDY Lactated Ringer's 1,000 mls @ 125 mls/hr 04/27/25 11:00 04/27/25 10:30 Lr IV 125 mls/hr .Q8H CINDY Administration Metoprolol Tartrate 5 mg 04/26/25 18:00 04/27/25 04:18 Metoprolol 5 Mg/5 Ml Vial IVP Not Given Q6HR CINDY Ondansetron HCl 4 mg 04/26/25 17:08 Ondansetron Odt 4 Mg Tablet TL Q6HR PRN Nausea / Vomiting Ondansetron HCl 4 mg 04/26/25 17:08 Ondansetron 4 Mg/2 Ml Vial IVP Q6HR PRN Nausea / Vomiting Pantoprazole Sodium 40 mg 04/26/25 21:00 04/27/25 09:05 Pantoprazole 40 Mg Vial IVP 40 mg BID CINDY Administration Sodium Chloride 10 ml 04/26/25 17:08 04/27/25 09:10 Sodium Chloride Flush 0.9% 10 Ml Syringe IVP 10 ml 0100,0900,1700 CINDY Administration Sodium Chloride 10 ml 04/26/25 17:08 Sodium Chloride Flush 0.9% 10 Ml Syringe IVP PRN PRN NEEDED PER PROVIDER ORDERS Zinc Oxide 113 gm 04/27/25 04:26 04/27/25 04:42 Cod Liver Oil/Zinc Oxide 113 Gm Tube TOP 1 applic PRN PRN Administration Skin Care Objective Vital Signs/Intake & Output Reviewed Vital Signs: Yes Vital Signs: Vital Signs x48h Temp Pulse Resp BP Pulse Ox 04/27/25 11:08 97.9 F 04/27/25 11:05 114/71 04/27/25 11:00 119/76 04/27/25 10:55 116/75 04/27/25 10:00 60 12 103/62 99 04/27/25 09:00 60 16 106/68 98 04/27/25 08:00 97.8 F 60 14 113/77 98 04/27/25 07:00 61 12 99/66 97 04/27/25 06:00 60 21 108/76 97 04/27/25 05:00 60 19 109/73 97 04/27/25 04:12 97.5 F L 61 15 108/68 97 Intake & Output: Intake & Output 04/24/25 04/25/25 04/26/25 04/27/25 23:59 23:59 23:59 23:59 Intake Total 4750 / 4750 3863 / 3863 Output Total 773 / 773 450 / 450 Balance 3977 / 3977 3413 / 3413 Weight (kg) 34.1 kg 39 kg Objective General Appearance: positive No acute distress, Alert and Other (Frail and cachectic in appearance with some temporal lobe wasting noted.); negative Anxious Eyes Bilateral: positive Normal inspection, PERRL and EOMI ENT: positive ENT inspection nml, Pharynx nml and No signs of dehydration Neck: positive Nml inspection, Thyroid nml and No JVD Respiratory: positive Chest non-tender, No respiratory distress and Breath sounds nml; negative Wheezes, Rales or Rhonchi Cardiovascular: positive No murmur, No gallop and Irregularly irregular; negative Tachycardia or Systolic murmur Abdomen: positive Other (Midline incision. 2 DEMETRIA drains noted with serosanguineous drainage. G-tube, J-tube in place. No erythema, swelling, induration or fluctuance around site. ) Back: positive Nml inspection; negative CVA tenderness (R) or CVA tenderness (L) Skin: positive Color nml, No rash, Warm and Dry Extremities: positive Non-tender, Nml appearance and No pedal edema; negative Full ROM (Mild weakness of LLE and LUE to flexion and extension. No sensory deficits noted. ) Neurologic/Psychiatric: positive Oriented x3 and Mood/affect nml Lab Results 04/27/25 05:32 04/27/25 05:32 Other Labs: Lab Results x24hrs 04/27/25 04/27/25 04/26/25 Range/Units 05:32 00:20 22:19 WBC 7.6 4.2 L (4.8-10.8) x10^3/uL RBC 3.83 L 2.84 L (4.20-5.40) 10^6/uL Hgb 10.0 L 6.9 L* (12.0-16.0) g/dL Hct 33.0 L 25.1 L (37.0-47.0) % MCV 86.2 88.4 (81.0-99.0) fL MCH 26.1 L 24.3 L (27.0-31.0) pg MCHC 30.3 L 27.5 L (32.0-36.0) g/dL RDW 17.6 H 19.4 H (12.0-15.0) % Plt Count 235 181 (130-450) 10^3/uL MPV 9.1 10.1 (7.9-10.8) fL Neut # (Auto) 7.1 H 3.7 (1.5-6.6) 10^3/uL Lymph # (Auto) 0.3 L 0.3 L (1.5-3.5) 10^3/uL Camp # (Auto) 0.2 0.2 (0.0-1.0) 10^3/uL Eos # (Auto) 0.0 0.0 (0.0-0.7) 10^3/uL Baso # (Auto) 0.0 0.0 (0.0-0.1) 10^3/uL Absolute Nucleated RBC 0.00 0.00 x10^3/uL Nucleated RBC % 0.0 0.0 /100WBC VBG pH 7.330 (7.31-7.41) Ionized Calcium 1.11 (1.09-1.30) mmol/L Sodium 135 135 (135-145) mmol/L Potassium 3.7 3.7 (3.5-4.5) mmol/L Chloride 106 109 (101-111) mmol/L Carbon Dioxide 22 19 L (21-32) mmol/L Anion Gap 7.0 7.0 (6-13) BUN 23 H 22 H (6-20) mg/dL Creatinine 0.7 0.5 L (0.6-1.3) mg/dL Estimated GFR (MDRD) 83 L 123 (>89) Glucose 190 H 153 H (74-104) mg/dL POC Whole Bld Glucose 139 (70-100) mg/dL Estimat Average Glucose 100 (70-100) mg/dL Hemoglobin A1c % 5.1 (4.27-6.07) % Lactic Acid (0.5-2.2) mmol/L Calcium 7.7 L 7.2 L (8.5-10.3) mg/dL Phosphorus 3.6 (2.5-5.0) mg/dL Magnesium 1.3 L (1.7-2.3) mg/dL Total Bilirubin 1.3 H (0.2-1.0) mg/dL AST 17 (10-42) IU/L ALT 8 L (10-60) IU/L Alkaline Phosphatase 25 L (42-121) IU/L C-Reactive Protein (<0.5) mg/dL Total Protein 4.9 L (6.4-8.9) g/dL Albumin 3.0 L (3.2-5.5) g/dL Globulin 1.9 L (2.1-4.2) g/dL Albumin/Globulin Ratio 1.6 (1.0-2.2) Prealbumin (17-34) mg/dL Lipase 33 (11-82) U/L Urine Color Urine Clarity (CLEAR) Urine pH (5.0-7.5) PH Ur Specific [place] (1.002-1.030) Urine Protein (NEGATIVE) mg/dL Urine Glucose (UA) (NEGATIVE) mg/dL Urine Ketones (NEGATIVE) mg/dL Urine Occult Blood (NEGATIVE) Urine Nitrite (NEGATIVE) Urine Bilirubin (NEGATIVE) Urine Urobilinogen (NORMAL) E.U./dL Ur Leukocyte Esterase (NEGATIVE) Urine RBC (0-5) /HPF Urine WBC (0-5) /HPF Ur Squamous Epith Cells (<= Few) Urine Crystals /LPF Urine Bacteria (None Seen) /HPF Urine Casts /LPF Ur Microscopic Review Urine Culture Comments Nasal Screen MRSA (PCR) (NEGATIVE) Blood Type Blood Type Recheck Antibody Screen Crossmatch IS Only 04/26/25 04/26/25 04/26/25 Range/Units 17:59 17:13 17:05 WBC (4.8-10.8) x10^3/uL RBC (4.20-5.40) 10^6/uL Hgb (12.0-16.0) g/dL Hct (37.0-47.0) % MCV (81.0-99.0) fL MCH (27.0-31.0) pg MCHC (32.0-36.0) g/dL RDW (12.0-15.0) % Plt Count (130-450) 10^3/uL MPV (7.9-10.8) fL Neut # (Auto) (1.5-6.6) 10^3/uL Lymph # (Auto) (1.5-3.5) 10^3/uL Camp # (Auto) (0.0-1.0) 10^3/uL Eos # (Auto) (0.0-0.7) 10^3/uL Baso # (Auto) (0.0-0.1) 10^3/uL Absolute Nucleated RBC x10^3/uL Nucleated RBC % /100WBC VBG pH (7.31-7.41) Ionized Calcium (1.09-1.30) mmol/L Sodium (135-145) mmol/L Potassium (3.5-4.5) mmol/L Chloride (101-111) mmol/L Carbon Dioxide (21-32) mmol/L Anion Gap (6-13) BUN (6-20) mg/dL Creatinine (0.6-1.3) mg/dL Estimated GFR (MDRD) (>89) Glucose (74-104) mg/dL POC Whole Bld Glucose 145 (70-100) mg/dL Estimat Average Glucose (70-100) mg/dL Hemoglobin A1c % (4.27-6.07) % Lactic Acid (0.5-2.2) mmol/L Calcium (8.5-10.3) mg/dL Phosphorus (2.5-5.0) mg/dL Magnesium (1.7-2.3) mg/dL Total Bilirubin (0.2-1.0) mg/dL AST (10-42) IU/L ALT (10-60) IU/L Alkaline Phosphatase (42-121) IU/L C-Reactive Protein (<0.5) mg/dL Total Protein (6.4-8.9) g/dL Albumin (3.2-5.5) g/dL Globulin (2.1-4.2) g/dL Albumin/Globulin Ratio (1.0-2.2) Prealbumin (17-34) mg/dL Lipase (11-82) U/L Urine Color YELLOW Urine Clarity CLEAR (CLEAR) Urine pH 6.0 (5.0-7.5) PH Ur Specific [place] 1.015 (1.002-1.030) Urine Protein 30 H (NEGATIVE) mg/dL Urine Glucose (UA) NEGATIVE (NEGATIVE) mg/dL Urine Ketones 15 H (NEGATIVE) mg/dL Urine Occult Blood MODERATE (NEGATIVE) Urine Nitrite NEGATIVE (NEGATIVE) Urine Bilirubin NEGATIVE (NEGATIVE) Urine Urobilinogen 0.2 (NORMAL) (NORMAL) E.U./dL Ur Leukocyte Esterase NEGATIVE (NEGATIVE) Urine RBC 6-10 H (0-5) /HPF Urine WBC 0-3 (0-5) /HPF Ur Squamous Epith Cells RARE Squamous (<= Few) Urine Crystals 0-2 Uric Acid /LPF Urine Bacteria None Seen (None Seen) /HPF Urine Casts 3-5 Fine Granular /LPF Ur Microscopic Review INDICATED Urine Culture Comments NOT INDICATED Nasal Screen MRSA (PCR) NEGATIVE (NEGATIVE) Blood Type Blood Type Recheck Antibody Screen Crossmatch IS Only 04/26/25 04/26/25 04/26/25 Range/Units 16:05 11:11 07:52 WBC (4.8-10.8) x10^3/uL RBC (4.20-5.40) 10^6/uL Hgb (12.0-16.0) g/dL Hct (37.0-47.0) % MCV (81.0-99.0) fL MCH (27.0-31.0) pg MCHC (32.0-36.0) g/dL RDW (12.0-15.0) % Plt Count (130-450) 10^3/uL MPV (7.9-10.8) fL Neut # (Auto) (1.5-6.6) 10^3/uL Lymph # (Auto) (1.5-3.5) 10^3/uL Camp # (Auto) (0.0-1.0) 10^3/uL Eos # (Auto) (0.0-0.7) 10^3/uL Baso # (Auto) (0.0-0.1) 10^3/uL Absolute Nucleated RBC x10^3/uL Nucleated RBC % /100WBC VBG pH (7.31-7.41) Ionized Calcium (1.09-1.30) mmol/L Sodium (135-145) mmol/L Potassium (3.5-4.5) mmol/L Chloride (101-111) mmol/L Carbon Dioxide (21-32) mmol/L Anion Gap (6-13) BUN (6-20) mg/dL Creatinine (0.6-1.3) mg/dL Estimated GFR (MDRD) (>89) Glucose (74-104) mg/dL POC Whole Bld Glucose 133 (70-100) mg/dL Estimat Average Glucose (70-100) mg/dL Hemoglobin A1c % (4.27-6.07) % Lactic Acid 1.5 (0.5-2.2) mmol/L Calcium (8.5-10.3) mg/dL Phosphorus (2.5-5.0) mg/dL Magnesium (1.7-2.3) mg/dL Total Bilirubin (0.2-1.0) mg/dL AST (10-42) IU/L ALT (10-60) IU/L Alkaline Phosphatase (42-121) IU/L C-Reactive Protein < 0.5 (<0.5) mg/dL Total Protein (6.4-8.9) g/dL Albumin (3.2-5.5) g/dL Globulin (2.1-4.2) g/dL Albumin/Globulin Ratio (1.0-2.2) Prealbumin 11 L (17-34) mg/dL Lipase (11-82) U/L Urine Color Urine Clarity (CLEAR) Urine pH (5.0-7.5) PH Ur Specific [place] (1.002-1.030) Urine Protein (NEGATIVE) mg/dL Urine Glucose (UA) (NEGATIVE) mg/dL Urine Ketones (NEGATIVE) mg/dL Urine Occult Blood (NEGATIVE) Urine Nitrite (NEGATIVE) Urine Bilirubin (NEGATIVE) Urine Urobilinogen (NORMAL) E.U./dL Ur Leukocyte Esterase (NEGATIVE) Urine RBC (0-5) /HPF Urine WBC (0-5) /HPF Ur Squamous Epith Cells (<= Few) Urine Crystals /LPF Urine Bacteria (None Seen) /HPF Urine Casts /LPF Ur Microscopic Review Urine Culture Comments Nasal Screen MRSA (PCR) (NEGATIVE) Blood Type O POSITIVE Blood Type Recheck O POSITIVE Antibody Screen NEGATIVE Crossmatch IS Only See Detail Assessment/Plan Problem List (1) Perforated abdominal viscus: Impression: Patient presents with acute on chronic abdominal pain. CT abdomen/pelvis shows free air, likely related to a perforated ulcer. Taken emergently to the OR on 04/26ex lap was completed with Talha patch repair of perforated gastric ulcer, gastrostomy tube placement, as well as jejunostomy tube placement. 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 Currently admitted to the ICU for further medical management and close monitoring. Strict n.p.o., for at least 48 hours. Continue gentle IV fluid rehydration. IV vancomycin, Zosyn, and fluconazole ordered due to perforation. This free fluid was sent for cultures, pending. Preliminary report suggest yeast and gram positive cocci. General Surgery following. (2) Shock: Impression: Overnight, patient became hypotensive. Received 2 L IV fluids, and then was started on Levophed. Likely hypovolemic shock. Could be septic shock due to perforated viscus. Blood cultures are ordered, but patient has already been on vancomycin, Zosyn, fluconazole. Her hemoglobin was rechecked, and was found to be 6.9. She received 1 unit packed red blood cells, with improvement of hemoglobin to 10. Continue IV fluid resuscitation. D5 LR switched to LR for resuscitative fluids. Levophed is now almost weaned off. MAP goal greater than 65. Continue to follow strict ins and outs, urine output. According to her weight, she should be making about 20 to 40 cc of urine per hour, to indicate adequate perfusion. (3) Cerebrovascular accident (CVA): Impression: Remains with mild left-sided deficits. Not on aspirin or statin. Qualifiers: CVA mechanism: thrombosis Laterality of affected vessel: right P recerebral and cerebral artery: middle cerebral artery Qualified Code(s): I 63.311 - Cerebral infarction due to thrombosis of right middle cerebral artery (4) HTN (hypertension): Impression: History of hypertension. Takes metoprolol for this as well as for atrial fibrillation. Currently held as NPO. Qualifiers: Hypertension type: unspecified Qualified Code(s): I10 - Essential (primary) hypertension (5) Diabetes mellitus: Impression: A1c of 5.1%. Monitor off sliding scale insulin at this time. Qualifiers: Diabetes mellitus complication status: without complication Diabetes mellitus intermodal customer service insulin use: without correction use Diabetes mellitus type: t ype 2 Qualified Code(s): E11.9 - Type 2 diabetes mellitus without complications (6) Afib: Impression: History of atrial fibrillation. On Eliquis and metoprolol. Hold Eliquis at this time. Qualifiers: Atrial fibrillation type: unspecified Qualified Code(s): I48.91 - Unspecified atrial fibrillation (7) History of pacemaker: Impression: Currently in paced rhythm.
[2025-04-27] MEDS: ACETAMINOPHEN 1,000 MG/100 ML 1,000 MG/100 ML BAG IV SCH (12:56)
--- NOTE | 2025-04-27 13:41 | PHARMACY PROGRESS NOTE ---
Best Possible Medication History Admit Date and Time: 04/26/25 288321 Home Medications Medication Instructions Recorded Confirmed Type apixaban 5 mg tablet (Eliquis) 5 mg PO BID 05/17/24 History lisinopril 2.5 mg tablet 2.5 mg PO DAILY 04/26/25 History metoprolol succinate 25 mg 25 mg PO DAILY 04/27/25 History tablet,extended release 24 hr Processed by: Pharmacy Medications reviewed in ED?: No Medication History completed: Yes Patient Interview: Pt unable to participate Secondary Source(s): Other family member, Pharmacy records and Insurance records [facility] Statement: As the person ultimately responsible for medication therapy, providers are able to order a medication from an existing home medication list in [facility] via the "Reconcile Routine" prior to Confirmation of that medication by naval surface fire support planner. Such practice is discouraged except when the physician, in their clinical judgment, deems that a medical need exists for a medication without regard to previous use.
[2025-04-27] MEDS: LACTATED RINGERS 1,000 ML IV ONE (13:48)
[2025-04-27] MEDS: PPN (CLINIMIX E 4.25/5) 2,000 ML with MULTIVITAMIN 10 ML, TRACE ELEMENTS 1 ML IV SCH (18:31)
[2025-04-27] MEDS: FAT EMULSION 20% 250 ML IV SCH (18:31)
[2025-04-27 18:48] LABS: HCT - HEMATOCRIT 32.0 % (37.0-47.0); HGB - HEMOGLOBIN 9.7 g/dL (12.0-16.0); MEAN PLATELET VOLUME 9.5 fL (7.9-10.8); PLT - PLATELET COUNT 215.0 10^3/uL (130-450); RED CELL DISTRIBUTION WIDTH 18.0 % (12.0-15.0)
[2025-04-28 04:33] LABS: HCT - HEMATOCRIT 33.0 % (37.0-47.0); HGB - HEMOGLOBIN 10.1 g/dL (12.0-16.0); MEAN PLATELET VOLUME 9.6 fL (7.9-10.8); NRBC ABSOLUTE COUNT (AUTO) 0.00 x10^3/uL; NUCLEATED RED BLOOD CELLS AUTO 0.0 /100WBC; PLT - PLATELET COUNT 208 10^3/uL (130-450); RED CELL DISTRIBUTION WIDTH 18.5 % (12.0-15.0)
[2025-04-28 04:49] LABS: VBG PH 7.378 (7.31-7.41)
[2025-04-28 05:02] LABS: ALT ALANINE AMINOTRANSFERASE 8.0 IU/L (10-60); AST ASPARTATE AMINOTRANSFERASE 17.0 IU/L (10-42); BUN - BLOOD UREA NITROGEN 29.0 mg/dL (6-20); CARBON DIOXIDE - CO2 22.0 mmol/L (21-32); CREATININE 0.9 mg/dL (0.6-1.3); GFR - MDRD 62.0 (>89); PHOSPHORUS 3.2 mg/dL (2.5-5.0)
[2025-04-28] MEDS: SODIUM CHLORIDE FLUSH 0.9% 10 ML SYRINGE IVP PRN (06:36)
--- NOTE | 2025-04-28 09:06 | PROVIDER PROGRESS NOTE ---
Subjective Prog Note Date Prog Note Date: 04/28/25 Prog Note Time: 09:06 Subjective Pt reports feeling: Improved Subjective: No acute events overnight. Danielle reports feeling well this morning. Her pain is 0/10 but increases with movement. She is looking forward to working with PT today. She denies chest pain, shortness of breath, nausea, vomiting or dizziness. She has not passed flatus. Current Medications Current Medications Current Medications: Current Medications Generic Name Dose Route Start Last Admin Trade Name Freq PRN Reason Stop Dose Admin Enoxaparin Sodium 30 mg 04/28/25 09:00 Enoxaparin 30 Mg/0.3 Ml Syringe SUBQ DAILY CINDY Hydromorphone HCl 0.5 mg 04/26/25 17:46 04/28/25 06:36 Hydromorphone 0.5 Mg/0.5 Ml Syringe IVP 0.5 mg Q4H PRN Administration Severe Pain (Level 7-10) Piperacillin Sod/Tazobactam 100 mls @ 25 mls/hr 04/26/25 17:30 04/28/25 05:20 Sod 4.5 gm/ Sodium Chloride IV Infused Q8H CINDY Infusion Vancomycin HCl 500 mg/ Sodium 100 mls @ 100 mls/hr 04/26/25 21:00 04/27/25 22:12 Chloride IV Infused Q12H CINDY Infusion Fluconazole 100 mls @ 100 mls/hr 04/26/25 18:00 04/27/25 19:00 Diflucan 200 Mg/100 Ml IV Infused Q24H CINDY Infusion Acetaminophen 1,000 mg in 100 mls @ 400 mls/hr 04/26/25 17:46 Acetaminophen IV Q6HR PRN Moderate Pain (Level 4-6) Acetaminophen 1,000 mg in 100 mls @ 400 mls/hr 04/27/25 12:00 04/28/25 04:30 Acetaminophen IV Infused Q8H CINDY Infusion Lactated Ringer's 1,000 mls @ 50 mls/hr 04/27/25 11:00 04/28/25 05:26 Lr IV Not Given .Q20H CINDY Multivitamins 10 ml/ Zinc/ 2,011 mls @ 83 mls/hr 04/27/25 19:00 04/27/25 18:31 Copper/Manganese/Selenium 1 ml IV 83 mls/hr / Amino Acids/Electrolytes/ 1900 CINDY Administration Dextrose Protocol Fat Emulsion Intravenous 250 mls @ 21 mls/hr 04/27/25 19:00 04/27/25 18:31 Intralipid 20% IV 04/29/25 06:55 21 mls/hr 1900 CINDY Administration Ondansetron HCl 4 mg 04/26/25 17:08 Ondansetron Odt 4 Mg Tablet TL Q6HR PRN Nausea / Vomiting Ondansetron HCl 4 mg 04/26/25 17:08 Ondansetron 4 Mg/2 Ml Vial IVP Q6HR PRN Nausea / Vomiting Pantoprazole Sodium 40 mg 04/26/25 21:00 04/27/25 21:00 Pantoprazole 40 Mg Vial IVP 40 mg BID CINDY Administration Sodium Chloride 10 ml 04/26/25 17:08 04/28/25 01:10 Sodium Chloride Flush 0.9% 10 Ml Syringe IVP 10 ml 0100,0900,1700 CINDY Administration Sodium Chloride 10 ml 04/26/25 17:08 04/28/25 06:36 Sodium Chloride Flush 0.9% 10 Ml Syringe IVP 10 ml PRN PRN Administration NEEDED PER PROVIDER ORDERS Zinc Oxide 113 gm 04/27/25 04:26 04/27/25 04:42 Cod Liver Oil/Zinc Oxide 113 Gm Tube TOP 1 applic PRN PRN Administration Skin Care Objective Vital Signs/Intake & Output Reviewed Vital Signs: Yes Vital Signs: Vital Signs x48h Temp Pulse Resp BP Pulse Ox 04/28/25 08:00 60 24 111/65 96 04/28/25 07:00 60 11 L 92/57 L 98 04/28/25 06:00 36.6 C 60 22 101/62 97 04/28/25 05:00 60 11 L 100/59 L 98 04/28/25 04:00 60 29 H 121/71 96 04/28/25 03:00 60 19 100/61 98 04/28/25 02:00 60 12 110/60 97 Intake & Output: Intake & Output 04/25/25 04/26/25 04/27/25 04/28/25 23:59 23:59 23:59 23:59 Intake Total 4750 / 4750 6524 / 6524 200 / 200 Output Total 773 / 773 925 / 925 522 / 522 Balance 3977 / 3977 5599 / 5599 -322 / -322 Weight (kg) 34.1 kg 39 kg 39 kg Objective General Appearance: positive No acute distress and Alert Eyes Bilateral: positive Normal inspection ENT: positive No signs of dehydration Neck: positive Nml inspection and Trachea midline Respiratory: positive No respiratory distress Cardiovascular: positive Regular rate & rhythm Abdomen: positive Non-tender, No distention and Other (Midline incision with silver dressing. G tube with minimal brown fluid and particulates. J tube capped. Right DEMETRIA drain with minimal serosanguinous fluid. Left DEMETRIA drain with moderate with moderate serosanguinous fluid, slightly bloodier. ); negative Guarding or Rebound Skin: positive Warm and Dry Extremities: positive No pedal edema Neurologic/Psychiatric: positive Oriented x3 Lab Results 04/28/25 04:28 04/28/25 04:28 Other Labs: Lab Results x24hrs 04/28/25 04/28/25 04/27/25 Range/Units 06:04 04:28 23:56 WBC 15.4 H (4.8-10.8) x10^3/uL RBC 3.80 L (4.20-5.40) 10^6/uL Hgb 10.1 L (12.0-16.0) g/dL Hct 33.0 L (37.0-47.0) % MCV 86.8 (81.0-99.0) fL MCH 26.6 L (27.0-31.0) pg MCHC 30.6 L (32.0-36.0) g/dL RDW 18.5 H (12.0-15.0) % Plt Count 208 (130-450) 10^3/uL MPV 9.6 (7.9-10.8) fL Neut # (Auto) 14.1 H (1.5-6.6) 10^3/uL Lymph # (Auto) 0.7 L (1.5-3.5) 10^3/uL Eaton # (Auto) 0.5 (0.0-1.0) 10^3/uL Eos # (Auto) 0.0 (0.0-0.7) 10^3/uL Baso # (Auto) 0.0 (0.0-0.1) 10^3/uL Absolute Nucleated RBC 0.00 x10^3/uL Nucleated RBC % 0.0 /100WBC VBG pH 7.378 (7.31-7.41) Ionized Calcium 1.13 (1.09-1.30) mmol/L Sodium 133 L (135-145) mmol/L Potassium 4.1 (3.5-4.5) mmol/L Chloride 105 (101-111) mmol/L Carbon Dioxide 22 (21-32) mmol/L Anion Gap 6.0 (6-13) BUN 29 H (6-20) mg/dL Creatinine 0.9 (0.6-1.3) mg/dL Estimated GFR (MDRD) 62 L (>89) Glucose 158 H (74-104) mg/dL POC Whole Bld Glucose 143 154 (70-100) mg/dL Estimat Average Glucose (70-100) mg/dL Hemoglobin A1c % (4.27-6.07) % Calcium 7.8 L (8.5-10.3) mg/dL Phosphorus 3.2 (2.5-5.0) mg/dL Magnesium 2.4 H (1.7-2.3) mg/dL Total Bilirubin 0.7 (0.2-1.0) mg/dL AST 17 (10-42) IU/L ALT 8 L (10-60) IU/L Alkaline Phosphatase 24 L (42-121) IU/L Total Protein 4.6 L (6.4-8.9) g/dL Albumin 2.7 L (3.2-5.5) g/dL Globulin 1.9 L (2.1-4.2) g/dL Albumin/Globulin Ratio 1.4 (1.0-2.2) Prealbumin 6 L (17-34) mg/dL Triglycerides 195 mg/dL Vitamin B12 763 (180-914) pg/mL 04/27/25 04/27/25 04/27/25 Range/Units 18:46 18:41 17:12 WBC 14.0 H (4.8-10.8) x10^3/uL RBC 3.78 L (4.20-5.40) 10^6/uL Hgb 9.7 L (12.0-16.0) g/dL Hct 32.0 L (37.0-47.0) % MCV 84.7 (81.0-99.0) fL MCH 25.7 L (27.0-31.0) pg MCHC 30.3 L (32.0-36.0) g/dL RDW 18.0 H (12.0-15.0) % Plt Count 215 (130-450) 10^3/uL MPV 9.5 (7.9-10.8) fL Neut # (Auto) (1.5-6.6) 10^3/uL Lymph # (Auto) (1.5-3.5) 10^3/uL Eaton # (Auto) (0.0-1.0) 10^3/uL Eos # (Auto) (0.0-0.7) 10^3/uL Baso # (Auto) (0.0-0.1) 10^3/uL Absolute Nucleated RBC x10^3/uL Nucleated RBC % /100WBC VBG pH (7.31-7.41) Ionized Calcium (1.09-1.30) mmol/L Sodium (135-145) mmol/L Potassium 4.2 (3.5-4.5) mmol/L Chloride (101-111) mmol/L Carbon Dioxide (21-32) mmol/L Anion Gap (6-13) BUN (6-20) mg/dL Creatinine (0.6-1.3) mg/dL Estimated GFR (MDRD) (>89) Glucose (74-104) mg/dL POC Whole Bld Glucose 108 (70-100) mg/dL Estimat Average Glucose (70-100) mg/dL Hemoglobin A1c % (4.27-6.07) % Calcium (8.5-10.3) mg/dL Phosphorus (2.5-5.0) mg/dL Magnesium (1.7-2.3) mg/dL Total Bilirubin (0.2-1.0) mg/dL AST (10-42) IU/L ALT (10-60) IU/L Alkaline Phosphatase (42-121) IU/L Total Protein (6.4-8.9) g/dL Albumin (3.2-5.5) g/dL Globulin (2.1-4.2) g/dL Albumin/Globulin Ratio (1.0-2.2) Prealbumin (17-34) mg/dL Triglycerides mg/dL Vitamin B12 (180-914) pg/mL 04/27/25 04/27/25 04/27/25 Range/Units 14:12 12:34 05:32 WBC (4.8-10.8) x10^3/uL RBC (4.20-5.40) 10^6/uL Hgb (12.0-16.0) g/dL Hct (37.0-47.0) % MCV (81.0-99.0) fL MCH (27.0-31.0) pg MCHC (32.0-36.0) g/dL RDW (12.0-15.0) % Plt Count (130-450) 10^3/uL MPV (7.9-10.8) fL Neut # (Auto) (1.5-6.6) 10^3/uL Lymph # (Auto) (1.5-3.5) 10^3/uL Eaton # (Auto) (0.0-1.0) 10^3/uL Eos # (Auto) (0.0-0.7) 10^3/uL Baso # (Auto) (0.0-0.1) 10^3/uL Absolute Nucleated RBC x10^3/uL Nucleated RBC % /100WBC VBG pH (7.31-7.41) Ionized Calcium (1.09-1.30) mmol/L Sodium (135-145) mmol/L Potassium (3.5-4.5) mmol/L Chloride (101-111) mmol/L Carbon Dioxide (21-32) mmol/L Anion Gap (6-13) BUN (6-20) mg/dL Creatinine (0.6-1.3) mg/dL Estimated GFR (MDRD) (>89) Glucose (74-104) mg/dL POC Whole Bld Glucose 152 (70-100) mg/dL Estimat Average Glucose 100 (70-100) mg/dL Hemoglobin A1c % 5.1 (4.27-6.07) % Calcium (8.5-10.3) mg/dL Phosphorus (2.5-5.0) mg/dL Magnesium 2.8 H (1.7-2.3) mg/dL Total Bilirubin (0.2-1.0) mg/dL AST (10-42) IU/L ALT (10-60) IU/L Alkaline Phosphatase (42-121) IU/L Total Protein (6.4-8.9) g/dL Albumin (3.2-5.5) g/dL Globulin (2.1-4.2) g/dL Albumin/Globulin Ratio (1.0-2.2) Prealbumin (17-34) mg/dL Triglycerides mg/dL Vitamin B12 (180-914) pg/mL Other Results/Comments Other Results/Comments: Urine output calculated to 0.9 cc/kg/h last 24 hours, clear/light yellow G tube output 40ml last 24 hours, brown fluid & particulates Right DEMETRIA drain 250ml today, serosanguineous Left DEMETRIA drain 140ml today, serosanguineous ABX Reporting Has patient been on IV antibiotics over the past 48 hours?: Yes Assessment/Plan Problem List (1) Perforated abdominal viscus: Impression: Assessment: Danielle is a 69yoF with a history of anemia, weight loss, and chronic heartburn now POD#2 from an exploratory laparotomy for perforated viscus with palliative zachary patch, pyloric exclusion, G tube and J tube placement due to 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 Plan: 1) Hypotension - Levophed discontinued for approximately 24 hours, maintaining MAPs 66-90 overnight. Continue with LR 125ml/h. Continue to monitor urine output. 2) Anemia - Daily CBC. Hgb 9.0 > 6.9 > 1u PRBC > 10.0 > 9.7 > 10.1. Stable. Continue to monitor drain output for kasia bleeding. 3) CARTER - Cr uptrending 0.5 > 0.9 but with no signs of dehydration, clearer urine and stable output at 0.9 cc/kg/hr. Continue with LR 125ml/h. Continue to monitor urine output and Cr with daily CMP. 4) Heartburn/ulcer - Continue with PPI 40mg BID. 5) FEN - Daily CMP, largely within normal limits today. G tube is for venting only, no enteral nutrition or medications. She may have sips of water or ice chips for dry mouth. Continue with LR 125ml/h. Per nutrition recommendations, continue with PPN with a total fluid goal of 125ml/h. If she remains clinically stable and without signs of any peritoneal leak (from ulcer, G tube site, or J tube site), can trial J tube 48h post-operatively. 6) ID - Daily CBC. WBCs uptrending 7.6 > 14.0 > 15.4. Day 3 Zosyn, Vancomycin and Fluconazole. Afebrile. Aerobes wound culture resulted with yeast, others still pending. 7) Ambulation - PT/OT ordered. 8) Pain - Well controlled. Continue with scheduled Acetaminophen and PRN Dilaudid. Add Toradol. 9) DVT prophylaxis - SCDs and Lovenox 30mg QD.
[2025-04-28] MEDS: ENOXAPARIN 30 MG/0.3 ML SYRINGE SUBQ SCH (09:31)
--- NOTE | 2025-04-28 11:16 | PROVIDER PROGRESS NOTE ---
Current Medications Current Medications Current Medications: Current Medications Generic Name Dose Route Start Last Admin Trade Name Freq PRN Reason Stop Dose Admin Enoxaparin Sodium 30 mg 04/28/25 09:00 04/28/25 09:31 Enoxaparin 30 Mg/0.3 Ml Syringe SUBQ 30 mg DAILY CINDY Administration Hydromorphone HCl 0.5 mg 04/26/25 17:46 04/28/25 06:36 Hydromorphone 0.5 Mg/0.5 Ml Syringe IVP 0.5 mg Q4H PRN Administration Severe Pain (Level 7-10) Piperacillin Sod/Tazobactam 100 mls @ 25 mls/hr 04/26/25 17:30 04/28/25 09:32 Sod 4.5 gm/ Sodium Chloride IV 25 mls/hr Q8H CINDY Administration Vancomycin HCl 500 mg/ Sodium 100 mls @ 100 mls/hr 04/26/25 21:00 04/28/25 10:44 Chloride IV Infused Q12H CINDY Infusion Fluconazole 100 mls @ 100 mls/hr 04/26/25 18:00 04/27/25 19:00 Diflucan 200 Mg/100 Ml IV Infused Q24H CINDY Infusion Acetaminophen 1,000 mg in 100 mls @ 400 mls/hr 04/26/25 17:46 Acetaminophen IV Q6HR PRN Moderate Pain (Level 4-6) Acetaminophen 1,000 mg in 100 mls @ 400 mls/hr 04/27/25 12:00 04/28/25 04:30 Acetaminophen IV Infused Q8H CINDY Infusion Lactated Ringer's 1,000 mls @ 50 mls/hr 04/27/25 11:00 04/28/25 05:26 Lr IV Not Given .Q20H CINDY Multivitamins 10 ml/ Zinc/ 2,011 mls @ 83 mls/hr 04/27/25 19:00 04/27/25 18:31 Copper/Manganese/Selenium 1 ml IV 83 mls/hr / Amino Acids/Electrolytes/ 1900 CINDY Administration Dextrose Protocol Fat Emulsion Intravenous 250 mls @ 21 mls/hr 04/27/25 19:00 04/28/25 07:00 Intralipid 20% IV 04/29/25 06:55 Infused 1900 CINDY Infusion Ondansetron HCl 4 mg 04/26/25 17:08 Ondansetron Odt 4 Mg Tablet TL Q6HR PRN Nausea / Vomiting Ondansetron HCl 4 mg 04/26/25 17:08 Ondansetron 4 Mg/2 Ml Vial IVP Q6HR PRN Nausea / Vomiting Pantoprazole Sodium 40 mg 04/26/25 21:00 04/28/25 09:32 Pantoprazole 40 Mg Vial IVP 40 mg BID CINDY Administration Sodium Chloride 10 ml 04/26/25 17:08 04/28/25 09:32 Sodium Chloride Flush 0.9% 10 Ml Syringe IVP 10 ml 0100,0900,1700 CINDY Administration Sodium Chloride 10 ml 04/26/25 17:08 04/28/25 06:36 Sodium Chloride Flush 0.9% 10 Ml Syringe IVP 10 ml PRN PRN Administration NEEDED PER PROVIDER ORDERS Zinc Oxide 113 gm 04/27/25 04:26 04/27/25 04:42 Cod Liver Oil/Zinc Oxide 113 Gm Tube TOP 1 applic PRN PRN Administration Skin Care Objective Vital Signs/Intake & Output Vital Signs: Vital Signs x48h Temp Pulse Resp BP Pulse Ox 04/28/25 11:00 98.6 F 60 27 H 126/74 97 04/28/25 10:00 60 21 99/57 L 98 04/28/25 09:00 60 19 99/58 L 97 04/28/25 08:00 60 24 111/65 96 04/28/25 07:00 60 11 L 92/57 L 98 04/28/25 06:00 97.9 F 60 22 101/62 97 04/28/25 05:00 60 11 L 100/59 L 98 04/28/25 04:00 60 29 H 121/71 96 Intake & Output: Intake & Output 04/25/25 04/26/25 04/27/25 04/28/25 23:59 23:59 23:59 23:59 Intake Total 4750 / 4750 6524 / 6524 550 / 550 Output Total 773 / 773 925 / 925 637 / 637 Balance 3977 / 3977 5599 / 5599 -87 / -87 Weight (kg) 34.1 kg 39 kg 40 kg Lab Results 04/28/25 04:28 04/28/25 04:28 Other Labs: Lab Results x24hrs 04/28/25 04/28/25 04/27/25 Range/Units 06:04 04:28 23:56 WBC 15.4 H (4.8-10.8) x10^3/uL RBC 3.80 L (4.20-5.40) 10^6/uL Hgb 10.1 L (12.0-16.0) g/dL Hct 33.0 L (37.0-47.0) % MCV 86.8 (81.0-99.0) fL MCH 26.6 L (27.0-31.0) pg MCHC 30.6 L (32.0-36.0) g/dL RDW 18.5 H (12.0-15.0) % Plt Count 208 (130-450) 10^3/uL MPV 9.6 (7.9-10.8) fL Neut # (Auto) 14.1 H (1.5-6.6) 10^3/uL Lymph # (Auto) 0.7 L (1.5-3.5) 10^3/uL Coleman # (Auto) 0.5 (0.0-1.0) 10^3/uL Eos # (Auto) 0.0 (0.0-0.7) 10^3/uL Baso # (Auto) 0.0 (0.0-0.1) 10^3/uL Absolute Nucleated RBC 0.00 x10^3/uL Nucleated RBC % 0.0 /100WBC VBG pH 7.378 (7.31-7.41) Ionized Calcium 1.13 (1.09-1.30) mmol/L Sodium 133 L (135-145) mmol/L Potassium 4.1 (3.5-4.5) mmol/L Chloride 105 (101-111) mmol/L Carbon Dioxide 22 (21-32) mmol/L Anion Gap 6.0 (6-13) BUN 29 H (6-20) mg/dL Creatinine 0.9 (0.6-1.3) mg/dL Estimated GFR (MDRD) 62 L (>89) Glucose 158 H (74-104) mg/dL POC Whole Bld Glucose 143 154 (70-100) mg/dL Calcium 7.8 L (8.5-10.3) mg/dL Phosphorus 3.2 (2.5-5.0) mg/dL Magnesium 2.4 H (1.7-2.3) mg/dL Total Bilirubin 0.7 (0.2-1.0) mg/dL AST 17 (10-42) IU/L ALT 8 L (10-60) IU/L Alkaline Phosphatase 24 L (42-121) IU/L Total Protein 4.6 L (6.4-8.9) g/dL Albumin 2.7 L (3.2-5.5) g/dL Globulin 1.9 L (2.1-4.2) g/dL Albumin/Globulin Ratio 1.4 (1.0-2.2) Prealbumin 6 L (17-34) mg/dL Triglycerides 195 mg/dL Vitamin B12 763 (180-914) pg/mL 04/27/25 04/27/25 04/27/25 Range/Units 18:46 18:41 17:12 WBC 14.0 H (4.8-10.8) x10^3/uL RBC 3.78 L (4.20-5.40) 10^6/uL Hgb 9.7 L (12.0-16.0) g/dL Hct 32.0 L (37.0-47.0) % MCV 84.7 (81.0-99.0) fL MCH 25.7 L (27.0-31.0) pg MCHC 30.3 L (32.0-36.0) g/dL RDW 18.0 H (12.0-15.0) % Plt Count 215 (130-450) 10^3/uL MPV 9.5 (7.9-10.8) fL Neut # (Auto) (1.5-6.6) 10^3/uL Lymph # (Auto) (1.5-3.5) 10^3/uL Coleman # (Auto) (0.0-1.0) 10^3/uL Eos # (Auto) (0.0-0.7) 10^3/uL Baso # (Auto) (0.0-0.1) 10^3/uL Absolute Nucleated RBC x10^3/uL Nucleated RBC % /100WBC VBG pH (7.31-7.41) Ionized Calcium (1.09-1.30) mmol/L Sodium (135-145) mmol/L Potassium 4.2 (3.5-4.5) mmol/L Chloride (101-111) mmol/L Carbon Dioxide (21-32) mmol/L Anion Gap (6-13) BUN (6-20) mg/dL Creatinine (0.6-1.3) mg/dL Estimated GFR (MDRD) (>89) Glucose (74-104) mg/dL POC Whole Bld Glucose 108 (70-100) mg/dL Calcium (8.5-10.3) mg/dL Phosphorus (2.5-5.0) mg/dL Magnesium (1.7-2.3) mg/dL Total Bilirubin (0.2-1.0) mg/dL AST (10-42) IU/L ALT (10-60) IU/L Alkaline Phosphatase (42-121) IU/L Total Protein (6.4-8.9) g/dL Albumin (3.2-5.5) g/dL Globulin (2.1-4.2) g/dL Albumin/Globulin Ratio (1.0-2.2) Prealbumin (17-34) mg/dL Triglycerides mg/dL Vitamin B12 (180-914) pg/mL 04/27/25 04/27/25 Range/Units 14:12 12:34 WBC (4.8-10.8) x10^3/uL RBC (4.20-5.40) 10^6/uL Hgb (12.0-16.0) g/dL Hct (37.0-47.0) % MCV (81.0-99.0) fL MCH (27.0-31.0) pg MCHC (32.0-36.0) g/dL RDW (12.0-15.0) % Plt Count (130-450) 10^3/uL MPV (7.9-10.8) fL Neut # (Auto) (1.5-6.6) 10^3/uL Lymph # (Auto) (1.5-3.5) 10^3/uL Coleman # (Auto) (0.0-1.0) 10^3/uL Eos # (Auto) (0.0-0.7) 10^3/uL Baso # (Auto) (0.0-0.1) 10^3/uL Absolute Nucleated RBC x10^3/uL Nucleated RBC % /100WBC VBG pH (7.31-7.41) Ionized Calcium (1.09-1.30) mmol/L Sodium (135-145) mmol/L Potassium (3.5-4.5) mmol/L Chloride (101-111) mmol/L Carbon Dioxide (21-32) mmol/L Anion Gap (6-13) BUN (6-20) mg/dL Creatinine (0.6-1.3) mg/dL Estimated GFR (MDRD) (>89) Glucose (74-104) mg/dL POC Whole Bld Glucose 152 (70-100) mg/dL Calcium (8.5-10.3) mg/dL Phosphorus (2.5-5.0) mg/dL Magnesium 2.8 H (1.7-2.3) mg/dL Total Bilirubin (0.2-1.0) mg/dL AST (10-42) IU/L ALT (10-60) IU/L Alkaline Phosphatase (42-121) IU/L Total Protein (6.4-8.9) g/dL Albumin (3.2-5.5) g/dL Globulin (2.1-4.2) g/dL Albumin/Globulin Ratio (1.0-2.2) Prealbumin (17-34) mg/dL Triglycerides mg/dL Vitamin B12 (180-914) pg/mL Assessment/Plan Problem List (1) Perforated abdominal viscus:
--- NOTE | 2025-04-28 14:27 | PROVIDER PROGRESS NOTE ---
Subjective Subjective Subjective: This morning, patient is doing well. She states her pain is well-controlled. She states it is much better than it was before. She has only had a few doses of IV Dilaudid. She denies any fevers or chills. She denies any nausea. She is in good spirits. Diet: PPN, trickle feeds later today DVT: Lovenox Code: Full Code Dispo: Likely SNF, pending clinical course Current Medications Current Medications Current Medications: Current Medications Generic Name Dose Route Start Last Admin Trade Name Freq PRN Reason Stop Dose Admin Enoxaparin Sodium 30 mg 04/28/25 09:00 04/28/25 09:31 Enoxaparin 30 Mg/0.3 Ml Syringe SUBQ 30 mg DAILY CINDY Administration Hydromorphone HCl 0.5 mg 04/26/25 17:46 04/28/25 12:19 Hydromorphone 0.5 Mg/0.5 Ml Syringe IVP 0.5 mg Q4H PRN Administration Severe Pain (Level 7-10) Piperacillin Sod/Tazobactam 100 mls @ 25 mls/hr 04/26/25 17:30 04/28/25 09:32 Sod 4.5 gm/ Sodium Chloride IV 25 mls/hr Q8H CINDY Administration Vancomycin HCl 500 mg/ Sodium 100 mls @ 100 mls/hr 04/26/25 21:00 04/28/25 10:44 Chloride IV Infused Q12H CINDY Infusion Fluconazole 100 mls @ 100 mls/hr 04/26/25 18:00 04/27/25 19:00 Diflucan 200 Mg/100 Ml IV Infused Q24H CINDY Infusion Acetaminophen 1,000 mg in 100 mls @ 400 mls/hr 04/26/25 17:46 Acetaminophen IV Q6HR PRN Moderate Pain (Level 4-6) Acetaminophen 1,000 mg in 100 mls @ 400 mls/hr 04/27/25 12:00 04/28/25 12:19 Acetaminophen IV 400 mls/hr Q8H CINDY Administration Lactated Ringer's 1,000 mls @ 50 mls/hr 04/27/25 11:00 04/28/25 05:26 Lr IV Not Given .Q20H CINDY Multivitamins 10 ml/ Zinc/ 2,011 mls @ 83 mls/hr 04/27/25 19:00 04/27/25 18:31 Copper/Manganese/Selenium 1 ml IV 83 mls/hr / Amino Acids/Electrolytes/ 1900 CINDY Administration Dextrose Protocol Fat Emulsion Intravenous 250 mls @ 21 mls/hr 04/27/25 19:00 04/28/25 07:00 Intralipid 20% IV 04/29/25 06:55 Infused 1900 CINDY Infusion Ondansetron HCl 4 mg 04/26/25 17:08 Ondansetron Odt 4 Mg Tablet TL Q6HR PRN Nausea / Vomiting Ondansetron HCl 4 mg 04/26/25 17:08 Ondansetron 4 Mg/2 Ml Vial IVP Q6HR PRN Nausea / Vomiting Pantoprazole Sodium 40 mg 04/26/25 21:00 04/28/25 09:32 Pantoprazole 40 Mg Vial IVP 40 mg BID CINDY Administration Sodium Chloride 10 ml 04/26/25 17:08 04/28/25 09:32 Sodium Chloride Flush 0.9% 10 Ml Syringe IVP 10 ml 0100,0900,1700 CINDY Administration Sodium Chloride 10 ml 04/26/25 17:08 04/28/25 06:36 Sodium Chloride Flush 0.9% 10 Ml Syringe IVP 10 ml PRN PRN Administration NEEDED PER PROVIDER ORDERS Zinc Oxide 113 gm 04/27/25 04:26 04/27/25 04:42 Cod Liver Oil/Zinc Oxide 113 Gm Tube TOP 1 applic PRN PRN Administration Skin Care Objective Vital Signs/Intake & Output Reviewed Vital Signs: Yes Vital Signs: Vital Signs x48h Temp Pulse Resp BP Pulse Ox 04/28/25 12:00 60 25 H 114/64 97 04/28/25 11:00 98.6 F 60 27 H 126/74 97 04/28/25 10:00 60 21 99/57 L 98 04/28/25 09:00 60 19 99/58 L 97 04/28/25 08:00 60 24 111/65 96 04/28/25 07:00 60 11 L 92/57 L 98 Intake & Output: Intake & Output 04/25/25 04/26/25 04/27/25 04/28/25 23:59 23:59 23:59 23:59 Intake Total 4750 / 4750 6524 / 6524 550 / 550 Output Total 773 / 773 925 / 925 647 / 647 Balance 3977 / 3977 5599 / 5599 -97 / -97 Weight (kg) 34.1 kg 39 kg 40 kg Objective General Appearance: positive No acute distress, Alert and Other (Frail and cachectic in appearance with some temporal lobe wasting noted.); negative Anxious Eyes Bilateral: positive Normal inspection, PERRL and EOMI ENT: positive ENT inspection nml, Pharynx nml and No signs of dehydration Neck: positive Nml inspection, Thyroid nml and No JVD Respiratory: positive Chest non-tender, No respiratory distress and Breath sounds nml; negative Wheezes, Rales or Rhonchi Cardiovascular: positive No murmur, No gallop and Irregularly irregular; negative Tachycardia or Systolic murmur Abdomen: positive Other (Midline incision. 2 DEMETRIA drains noted with serosanguineous drainage. G-tube, J-tube in place. No erythema, swelling, induration or fluctuance around site. ) Back: positive Nml inspection; negative CVA tenderness (R) or CVA tenderness (L) Skin: positive Color nml, No rash, Warm and Dry Extremities: positive Non-tender, Nml appearance and No pedal edema; negative Full ROM (Mild weakness of LLE and LUE to flexion and extension. No sensory deficits noted. ) Neurologic/Psychiatric: positive Oriented x3 and Mood/affect nml Lab Results 04/28/25 04:28 04/28/25 04:28 Other Labs: Lab Results x24hrs 04/28/25 04/28/25 04/28/25 Range/Units 11:48 06:04 04:28 WBC 15.4 H (4.8-10.8) x10^3/uL RBC 3.80 L (4.20-5.40) 10^6/uL Hgb 10.1 L (12.0-16.0) g/dL Hct 33.0 L (37.0-47.0) % MCV 86.8 (81.0-99.0) fL MCH 26.6 L (27.0-31.0) pg MCHC 30.6 L (32.0-36.0) g/dL RDW 18.5 H (12.0-15.0) % Plt Count 208 (130-450) 10^3/uL MPV 9.6 (7.9-10.8) fL Neut # (Auto) 14.1 H (1.5-6.6) 10^3/uL Lymph # (Auto) 0.7 L (1.5-3.5) 10^3/uL [place] # (Auto) 0.5 (0.0-1.0) 10^3/uL Eos # (Auto) 0.0 (0.0-0.7) 10^3/uL Baso # (Auto) 0.0 (0.0-0.1) 10^3/uL Absolute Nucleated RBC 0.00 x10^3/uL Nucleated RBC % 0.0 /100WBC VBG pH 7.378 (7.31-7.41) Ionized Calcium 1.13 (1.09-1.30) mmol/L Sodium 133 L (135-145) mmol/L Potassium 4.1 (3.5-4.5) mmol/L Chloride 105 (101-111) mmol/L Carbon Dioxide 22 (21-32) mmol/L Anion Gap 6.0 (6-13) BUN 29 H (6-20) mg/dL Creatinine 0.9 (0.6-1.3) mg/dL Estimated GFR (MDRD) 62 L (>89) Glucose 158 H (74-104) mg/dL POC Whole Bld Glucose 131 143 (70-100) mg/dL Calcium 7.8 L (8.5-10.3) mg/dL Phosphorus 3.2 (2.5-5.0) mg/dL Magnesium 2.4 H (1.7-2.3) mg/dL Total Bilirubin 0.7 (0.2-1.0) mg/dL AST 17 (10-42) IU/L ALT 8 L (10-60) IU/L Alkaline Phosphatase 24 L (42-121) IU/L Total Protein 4.6 L (6.4-8.9) g/dL Albumin 2.7 L (3.2-5.5) g/dL Globulin 1.9 L (2.1-4.2) g/dL Albumin/Globulin Ratio 1.4 (1.0-2.2) Prealbumin 6 L (17-34) mg/dL Triglycerides 195 mg/dL Vitamin B12 763 (180-914) pg/mL 04/27/25 04/27/25 04/27/25 Range/Units 23:56 18:46 18:41 WBC 14.0 H (4.8-10.8) x10^3/uL RBC 3.78 L (4.20-5.40) 10^6/uL Hgb 9.7 L (12.0-16.0) g/dL Hct 32.0 L (37.0-47.0) % MCV 84.7 (81.0-99.0) fL MCH 25.7 L (27.0-31.0) pg MCHC 30.3 L (32.0-36.0) g/dL RDW 18.0 H (12.0-15.0) % Plt Count 215 (130-450) 10^3/uL MPV 9.5 (7.9-10.8) fL Neut # (Auto) (1.5-6.6) 10^3/uL Lymph # (Auto) (1.5-3.5) 10^3/uL [place] # (Auto) (0.0-1.0) 10^3/uL Eos # (Auto) (0.0-0.7) 10^3/uL Baso # (Auto) (0.0-0.1) 10^3/uL Absolute Nucleated RBC x10^3/uL Nucleated RBC % /100WBC VBG pH (7.31-7.41) Ionized Calcium (1.09-1.30) mmol/L Sodium (135-145) mmol/L Potassium (3.5-4.5) mmol/L Chloride (101-111) mmol/L Carbon Dioxide (21-32) mmol/L Anion Gap (6-13) BUN (6-20) mg/dL Creatinine (0.6-1.3) mg/dL Estimated GFR (MDRD) (>89) Glucose (74-104) mg/dL POC Whole Bld Glucose 154 108 (70-100) mg/dL Calcium (8.5-10.3) mg/dL Phosphorus (2.5-5.0) mg/dL Magnesium (1.7-2.3) mg/dL Total Bilirubin (0.2-1.0) mg/dL AST (10-42) IU/L ALT (10-60) IU/L Alkaline Phosphatase (42-121) IU/L Total Protein (6.4-8.9) g/dL Albumin (3.2-5.5) g/dL Globulin (2.1-4.2) g/dL Albumin/Globulin Ratio (1.0-2.2) Prealbumin (17-34) mg/dL Triglycerides mg/dL Vitamin B12 (180-914) pg/mL 04/27/25 04/27/25 Range/Units 17:12 14:12 WBC (4.8-10.8) x10^3/uL RBC (4.20-5.40) 10^6/uL Hgb (12.0-16.0) g/dL Hct (37.0-47.0) % MCV (81.0-99.0) fL MCH (27.0-31.0) pg MCHC (32.0-36.0) g/dL RDW (12.0-15.0) % Plt Count (130-450) 10^3/uL MPV (7.9-10.8) fL Neut # (Auto) (1.5-6.6) 10^3/uL Lymph # (Auto) (1.5-3.5) 10^3/uL [place] # (Auto) (0.0-1.0) 10^3/uL Eos # (Auto) (0.0-0.7) 10^3/uL Baso # (Auto) (0.0-0.1) 10^3/uL Absolute Nucleated RBC x10^3/uL Nucleated RBC % /100WBC VBG pH (7.31-7.41) Ionized Calcium (1.09-1.30) mmol/L Sodium (135-145) mmol/L Potassium 4.2 (3.5-4.5) mmol/L Chloride (101-111) mmol/L Carbon Dioxide (21-32) mmol/L Anion Gap (6-13) BUN (6-20) mg/dL Creatinine (0.6-1.3) mg/dL Estimated GFR (MDRD) (>89) Glucose (74-104) mg/dL POC Whole Bld Glucose (70-100) mg/dL Calcium (8.5-10.3) mg/dL Phosphorus (2.5-5.0) mg/dL Magnesium 2.8 H (1.7-2.3) mg/dL Total Bilirubin (0.2-1.0) mg/dL AST (10-42) IU/L ALT (10-60) IU/L Alkaline Phosphatase (42-121) IU/L Total Protein (6.4-8.9) g/dL Albumin (3.2-5.5) g/dL Globulin (2.1-4.2) g/dL Albumin/Globulin Ratio (1.0-2.2) Prealbumin (17-34) mg/dL Triglycerides mg/dL Vitamin B12 (180-914) pg/mL Assessment/Plan Problem List (1) Perforated abdominal viscus: Impression: Patient presents with acute on chronic abdominal pain. CT abdomen/pelvis shows free air, likely related to a perforated ulcer. Taken emergently to the OR on 04/26ex lap was completed with Talha patch repair of perforated gastric ulcer, gastrostomy tube placement, as well as jejunostomy tube placement. 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 Currently admitted to the ICU for further medical management and close monitoring. PPN started 04/27; continue until this evening. Plan to start trickle feeds later this afternoon. Stop PPN if this is well tolerated. Continue gentle IV fluid rehydration. IV vancomycin, Zosyn, and fluconazole ordered due to perforation. Leukocytosis noted. Continued. In OR, free fluid was sent for cultures, growing yeast. Blood cultures drawn 04/27 with no growth to date. General Surgery following. (2) Shock: Impression: Resolved. On 04/26, evening, patient received 2 L IV fluids, and then was started on Levophed. Likely hypovolemic shock. Her hemoglobin was rechecked, and was found to be 6.9. She received 1 unit packed red blood cells, with improvement of hemoglobin to 10. MAP goal greater than 65. Continue to follow strict ins and outs, urine output. According to her weight, she should be making about 20 to 40 cc of urine per hour. (3) Cerebrovascular accident (CVA): Impression: Remains with mild left-sided deficits. Not on aspirin or statin. Qualifiers: CVA mechanism: thrombosis Laterality of affected vessel: right P recerebral and cerebral artery: middle cerebral artery Qualified Code(s): I 63.311 - Cerebral infarction due to thrombosis of right middle cerebral artery (4) HTN (hypertension): Impression: History of hypertension. Takes metoprolol for this as well as for atrial fibrillation. Currently held. Qualifiers: Hypertension type: unspecified Qualified Code(s): I10 - Essential (primary) hypertension (5) Diabetes mellitus: Impression: A1c of 5.1%. Monitor off sliding scale insulin at this time. Qualifiers: Diabetes mellitus type: type 2 Diabetes mellitus half-way insulin use: without half-way use Diabetes mellitus complication status: without complication Qualified Code(s): E11.9 - Type 2 diabetes mellitus without complications (6) Afib: Impression: History of atrial fibrillation. On Eliquis and metoprolol. Hold Eliquis at this time. DVT prophylaxis started today. Qualifiers: Atrial fibrillation type: unspecified Qualified Code(s): I48.91 - Unspecified atrial fibrillation (7) History of pacemaker: Impression: Currently in paced rhythm.
[2025-04-29 04:36] LABS: HCT - HEMATOCRIT 36.3 % (37.0-47.0); HGB - HEMOGLOBIN 10.5 g/dL (12.0-16.0); MEAN PLATELET VOLUME 10.0 fL (7.9-10.8); PLT - PLATELET COUNT 211 10^3/uL (130-450); RED CELL DISTRIBUTION WIDTH 19.0 % (12.0-15.0)
[2025-04-29 04:41] LABS: SLIDE REVIEW? Indicated; VBG PH 7.399 (7.31-7.41)
[2025-04-29 04:42] LABS: ABNORMAL LYMPHS % (MANUAL) 0 %; BAND NEUTROPHILS % (MANUAL) 0 %; BASOPHILS # (MANUAL) 0.0 10^3/uL (0-0.1); EOSINOPHILS # (MANUAL) 0.0 10^3/uL (0-0.7)
[2025-04-29 04:55] LABS: BUN - BLOOD UREA NITROGEN 40.0 mg/dL (6-20); CARBON DIOXIDE - CO2 21.0 mmol/L (21-32); CREATININE 0.8 mg/dL (0.6-1.3); GFR - MDRD 72.0 (>89); PHOSPHORUS 3.6 mg/dL (2.5-5.0)
[2025-04-29 04:57] LABS: LYMPHOCYTES # (MANUAL) 0.6 10^3/uL (1.5-3.5); LYMPHOCYTES % (MANUAL) 3 %; MONOCYTES # (MANUAL) 0.4 10^3/uL (0.0-1.0); NEUTROPHILS # (MANUAL) 19.5 10^3/uL (1.5-6.6)
[2025-04-29 05:01] LABS: PLATELET ESTIMATE, MANUAL NORMAL (130-450,000) (NORMAL); PLATELET MORPHOLOGY NORMAL APPEARANCE (NORMAL); WBC MORPHOLOGY (MULTIPLE) NORMAL APPEARANCE (NORMAL)
--- NOTE | 2025-04-29 10:09 | PROVIDER PROGRESS NOTE ---
Subjective General Admit Date: 04/26/25 Procedure Date: 04/26/25 Post Op Days: 3 Procedure Performed: ExLap, Talha patch, Pyloric Exclusion, Gtube/Jtube Other Other Information/Narrative: POD3. Andrews out yesterday, voiding well. OOBTC x2 yesterday, and in-room ambulation with PT. Overnight Jtube feeds started and tolerating with continued no pain/nausea, no distension. Both DEMETRIA drains still light ssf, slight increase in dark gastric drainage from G tube. Wound Assessment Wound/Incisions: positive Dressing dry and intact Review of Systems Status of ROS: 10 or more systems reviewed and unremarkable except as noted in history and below Exam Exam Vital Signs: Vital Signs x48h Temp Pulse Resp BP Pulse Ox 04/29/25 09:00 60 15 142/67 H 97 04/29/25 08:00 37 C 60 15 121/61 97 04/29/25 07:00 60 13 115/63 97 04/29/25 06:00 60 22 128/70 97 04/29/25 05:00 60 14 106/64 97 04/29/25 04:00 60 22 145/69 H 98 04/29/25 03:00 60 14 122/70 97 Constitutional normal general appearance, no apparent distress and abnormal body habitus (thin) Respiratory breath sounds equal bilaterally and normal respiratory effort Cardiovascular normal heart rate noted and regular rhythm noted (100% paced) Gastrointestinal abdomen soft to palpation (Diffusely firm/involuntary guarding) and nontender to palpation R & L DEMETRIA drain - light SSF G tube - scant dark gastric contents J tube - tube feeds going in Extremities normal to inspection Psychiatry oriented x3 Skin skin color normal ABX Reporting Has patient been on IV antibiotics over the past 48 hours?: Yes Impression/Plan Problem List (1) Perforated chronic gastric ulcer: (2) Status post exploratory laparotomy: (3) Complete gastric outlet obstruction: (4) Gastrostomy tube present: (5) Jejunostomy tube present: Plan 69yoF POD3 s/p 04/26/2025 emergent exploratory laparotomy for perforated pyloric ulcer, highly suspicious for malignancy due to history of weight loss and intraoperative appearance. ExLap included biopsies of perforated ulcer/mass, talha patch of perforation, stapled pyloric exclusion, placement of venting gastrostomy tube and feeding jejunostomy tube. Doing remarkably well postoperatively. - Pain extremely well controlled, no changes - HDN/on RA, andrews removed and voiding well - Tolerating Jejunostomy feeds at goal. Add miralax (WELL DISSOLVED) to free water flushes. OK to have clear liquids for comfort sparingly, they will drain via Gastrostomy tube, which should remain to gravity drainage bag. OK for ducolax suppository. - wean IVF - Daily CBC/Chem - WBC rising, but no fever/tachycardia/abdominal pain or distension, no sign of leak by DEMETRIA drain contents. Blood cx with no growth, abdominal cx with yeast growth only. Clinically doing well. Continue vanc/zosyn/fluconazole today. Ideally stop vanc/zosyn after 4d, but would be nice to see WBC downtrending. Plan to continue Fluconazole for 7-14d. - continue DEMETRIA drains until consistently tolerating PO clears and J tube feeds with no leaks and clinical stability. - hgb stable, on ppx lovenox. If stable with TF at goal x24hrs without sign of leak/need for reoperation, will transition to home Eliquis tomorrow. - continue working with PT/SW for dc planning. 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
[2025-04-29] MEDS ORDERED: BISACODYL 10 MG SUPP PR PRN (10:32)
[2025-04-29] MEDS: METOPROLOL 5 MG/5 ML VIAL IVP SCH (12:03)
--- NOTE | 2025-04-29 16:49 | PROVIDER PROGRESS NOTE ---
Subjective Prog Note Date Prog Note Date: 04/29/25 Prog Note Time: 16:48 Subjective Subjective: She has several children that are her support system. One of her sons lives with her. At home she is usually able to ambulate with assistance. Here she is requiring the use of a lift to get her from sitting to standing, and then transfer her to a bedside commode. She denies significant pain. No chest pain. No cough. No shortness of breath. Current Medications Current Medications Current Medications: Current Medications Generic Name Dose Route Start Last Admin Trade Name Freq PRN Reason Stop Dose Admin Bisacodyl 10 mg 04/29/25 10:32 Bisacodyl 10 Mg Supp [place] DAILY PRN Constipation Enoxaparin Sodium 30 mg 04/28/25 09:00 04/29/25 08:45 Enoxaparin 30 Mg/0.3 Ml Syringe SUBQ 30 mg DAILY CINDY Administration Hydromorphone HCl 0.5 mg 04/26/25 17:46 04/29/25 14:12 Hydromorphone 0.5 Mg/0.5 Ml Syringe IVP 0.5 mg Q4H PRN Administration Severe Pain (Level 7-10) Piperacillin Sod/Tazobactam 100 mls @ 25 mls/hr 04/26/25 17:30 04/29/25 12:47 Sod 4.5 gm/ Sodium Chloride IV Infused Q8H CINDY Infusion Vancomycin HCl 500 mg/ Sodium 100 mls @ 100 mls/hr 04/26/25 21:00 04/29/25 11:35 Chloride IV Infused Q12H CINDY Infusion Fluconazole 100 mls @ 100 mls/hr 04/26/25 18:00 04/28/25 19:42 Diflucan 200 Mg/100 Ml IV Infused Q24H CINDY Infusion Acetaminophen 1,000 mg in 100 mls @ 400 mls/hr 04/27/25 12:00 04/29/25 12:20 Acetaminophen IV Infused Q8H CINDY Infusion Multivitamins 10 ml/ Zinc/ 2,011 mls @ 83 mls/hr 04/27/25 19:00 04/29/25 16:00 Copper/Manganese/Selenium 1 ml IV 04/29/25 18:59 50 mls/hr / Amino Acids/Electrolytes/ 1900 CINDY Infusion Dextrose Protocol Metoprolol Tartrate 2.5 mg 04/29/25 11:00 04/29/25 12:03 Metoprolol 5 Mg/5 Ml Vial IVP 2.5 mg Q6HR CINDY Administration Ondansetron HCl 4 mg 04/26/25 17:08 Ondansetron Odt 4 Mg Tablet TL Q6HR PRN Nausea / Vomiting Ondansetron HCl 4 mg 04/26/25 17:08 Ondansetron 4 Mg/2 Ml Vial IVP Q6HR PRN Nausea / Vomiting Pantoprazole Sodium 40 mg 04/26/25 21:00 04/29/25 08:46 Pantoprazole 40 Mg Vial IVP 40 mg BID CINDY Administration Polyethylene Glycol 17 gm 04/29/25 10:32 Polyethylene Glycol 3350 17 Gm Packet JT DAILY PRN Bowel Protocol Sodium Chloride 10 ml 04/26/25 17:08 04/29/25 08:46 Sodium Chloride Flush 0.9% 10 Ml Syringe IVP 10 ml 0100,0900,1700 CINDY Administration Sodium Chloride 10 ml 04/26/25 17:08 04/28/25 06:36 Sodium Chloride Flush 0.9% 10 Ml Syringe IVP 10 ml PRN PRN Administration NEEDED PER PROVIDER ORDERS Zinc Oxide 113 gm 04/27/25 04:26 04/27/25 04:42 Cod Liver Oil/Zinc Oxide 113 Gm Tube TOP 1 applic PRN PRN Administration Skin Care Objective Vital Signs/Intake & Output Reviewed Vital Signs: Yes Vital Signs: Vital Signs Pulse Resp BP Pulse Ox 04/29/25 16:00 60 22 142/72 H 97 04/29/25 15:00 60 21 100/61 98 04/29/25 14:00 67 22 132/75 H 96 04/29/25 13:00 60 20 124/69 97 Intake & Output: Intake & Output 04/26/25 04/27/25 04/28/25 04/29/25 23:59 23:59 23:59 23:59 Intake Total 4750 / 4750 6524 / 6524 4181 / 4181 4112 / 4112 Output Total 773 / 773 925 / 925 1142 / 1142 940 / 940 Balance 3977 / 3977 5599 / 5599 3039 / 3039 3172 / 3172 Weight (kg) 34.1 kg 39 kg 40 kg 42.5 kg Objective General Appearance: positive No acute distress, Alert and Other (Sitting in a chair this morning. Son at the bedside. When she goes to the bedside commode son leaves the room to give her privacy. She is talkative. Lucid.4 foot 10 inches, 42.5 kg.) Eyes Bilateral: positive PERRL and EOMI ENT: positive No signs of dehydration Neck: positive No JVD; negative Stiff neck Respiratory: positive Chest non-tender, No respiratory distress and Breath sounds nml Cardiovascular: positive Regular rate & rhythm, No murmur and No gallop Abdomen: positive Non-tender, No organomegaly and Other (Hypoactive bowel sounds. Midline surgical incision covered in dressing. Jejunostomy with gas and stool in bag.) Skin: positive Color nml, No rash and Warm Extremities: positive Non-tender and Pedal edema (Minimal around ankles and feet); negative Full ROM Neurologic/Psychiatric: positive Oriented x3 and Other (Slight facial droop, slight verbal apraxia, left side weakness from previous stroke, and slight contraction at elbow, wrist, hip and knee.); negative CN's nml (2-12) or Motor nml Lab Results 04/29/25 04:30 04/29/25 04:30 Other Labs: Lab Results x24hrs 04/29/25 04/29/25 04/29/25 Range/Units 08:29 06:16 04:30 WBC (4.8-10.8) x10^3/uL RBC (4.20-5.40) 10^6/uL Hgb (12.0-16.0) g/dL Hct (37.0-47.0) % MCV (81.0-99.0) fL MCH (27.0-31.0) pg MCHC (32.0-36.0) g/dL RDW (12.0-15.0) % Plt Count (130-450) 10^3/uL MPV (7.9-10.8) fL Neut # (Auto) Lymph # (Auto) [place] # (Auto) Eos # (Auto) Baso # (Auto) Absolute Nucleated RBC Total Counted Band Neuts % (Manual) (0 - 10) % Abnorm Lymph % (Manual) % Nucleated RBC % Neutrophils # (Manual) (1.5-6.6) 10^3/uL Lymphocytes # (Manual) (1.5-3.5) 10^3/uL Monocytes # (Manual) (0.0-1.0) 10^3/uL Eosinophils # (Manual) (0-0.7) 10^3/uL Basophils # (Manual) (0-0.1) 10^3/uL Differential Comment Manual Slide Review WBC Morphology (NORMAL) Platelet Estimate (NORMAL) Platelet Morphology (NORMAL) RBC Morph Micro Appear 1+ OVALOCYTES (NORMAL) VBG pH 7.399 (7.31-7.41) Ionized Calcium 1.13 (1.09-1.30) mmol/L Sodium 132 L (135-145) mmol/L Potassium 4.3 (3.5-4.5) mmol/L Chloride 105 (101-111) mmol/L Carbon Dioxide 21 (21-32) mmol/L Anion Gap 6.0 (6-13) BUN 40 H (6-20) mg/dL Creatinine 0.8 (0.6-1.3) mg/dL Estimated GFR (MDRD) 72 L (>89) Glucose 147 H (74-104) mg/dL POC Whole Bld Glucose 154 (70-100) mg/dL Calcium 7.7 L (8.5-10.3) mg/dL Phosphorus 3.6 (2.5-5.0) mg/dL Magnesium 2.4 H (1.7-2.3) mg/dL Last Dose Date 04/28/25 Last Dose Time 2132 Vancomycin Trough 20.4 ug/mL 04/29/25 04/29/25 04/29/25 Range/Units 04:30 04:30 04:30 WBC (4.8-10.8) x10^3/uL RBC (4.20-5.40) 10^6/uL Hgb (12.0-16.0) g/dL Hct (37.0-47.0) % MCV (81.0-99.0) fL MCH (27.0-31.0) pg MCHC (32.0-36.0) g/dL RDW (12.0-15.0) % Plt Count (130-450) 10^3/uL MPV (7.9-10.8) fL Neut # (Auto) Lymph # (Auto) [place] # (Auto) Eos # (Auto) Baso # (Auto) Absolute Nucleated RBC Total Counted Band Neuts % (Manual) (0 - 10) % Abnorm Lymph % (Manual) % Nucleated RBC % Neutrophils # (Manual) (1.5-6.6) 10^3/uL Lymphocytes # (Manual) (1.5-3.5) 10^3/uL Monocytes # (Manual) (0.0-1.0) 10^3/uL Eosinophils # (Manual) (0-0.7) 10^3/uL Basophils # (Manual) (0-0.1) 10^3/uL Differential Comment Manual Slide Review WBC Morphology (NORMAL) Platelet Estimate (NORMAL) Platelet Morphology (NORMAL) RBC Morph Micro Appear 1+ PERICO CELLS 1+ ACANTHOCYTES 1+ ANISOCYTOSIS (NORMAL) VBG pH (7.31-7.41) Ionized Calcium (1.09-1.30) mmol/L Sodium (135-145) mmol/L Potassium (3.5-4.5) mmol/L Chloride (101-111) mmol/L Carbon Dioxide (21-32) mmol/L Anion Gap (6-13) BUN (6-20) mg/dL Creatinine (0.6-1.3) mg/dL Estimated GFR (MDRD) (>89) Glucose (74-104) mg/dL POC Whole Bld Glucose (70-100) mg/dL Calcium (8.5-10.3) mg/dL Phosphorus (2.5-5.0) mg/dL Magnesium (1.7-2.3) mg/dL Last Dose Date Last Dose Time Vancomycin Trough ug/mL 04/29/25 04/29/25 04/28/25 Range/Units 04:30 00:28 18:06 WBC 20.5 H (4.8-10.8) x10^3/uL RBC 4.05 L (4.20-5.40) 10^6/uL Hgb 10.5 L (12.0-16.0) g/dL Hct 36.3 L (37.0-47.0) % MCV 89.6 (81.0-99.0) fL MCH 25.9 L (27.0-31.0) pg MCHC 28.9 L (32.0-36.0) g/dL RDW 19.0 H (12.0-15.0) % Plt Count 211 (130-450) 10^3/uL MPV 10.0 (7.9-10.8) fL Neut # (Auto) Not Reportable Lymph # (Auto) Not Reportable [place] # (Auto) Not Reportable Eos # (Auto) Not Reportable Baso # (Auto) Not Reportable Absolute Nucleated RBC Not Reportable Total Counted 100 Band Neuts % (Manual) 0 (0 - 10) % Abnorm Lymph % (Manual) 0 % Nucleated RBC % Not Reportable Neutrophils # (Manual) 19.5 H (1.5-6.6) 10^3/uL Lymphocytes # (Manual) 0.6 L (1.5-3.5) 10^3/uL Monocytes # (Manual) 0.4 (0.0-1.0) 10^3/uL Eosinophils # (Manual) 0.0 (0-0.7) 10^3/uL Basophils # (Manual) 0.0 (0-0.1) 10^3/uL Differential Comment MANUAL DIFFERENTIAL Manual Slide Review Indicated WBC Morphology NORMAL APPEARANCE (NORMAL) Platelet Estimate NORMAL (130-450,000) (NORMAL) Platelet Morphology NORMAL APPEARANCE (NORMAL) RBC Morph Micro Appear 1+ HYPOCHROMASIA (NORMAL) VBG pH (7.31-7.41) Ionized Calcium (1.09-1.30) mmol/L Sodium (135-145) mmol/L Potassium (3.5-4.5) mmol/L Chloride (101-111) mmol/L Carbon Dioxide (21-32) mmol/L Anion Gap (6-13) BUN (6-20) mg/dL Creatinine (0.6-1.3) mg/dL Estimated GFR (MDRD) (>89) Glucose (74-104) mg/dL POC Whole Bld Glucose 136 166 (70-100) mg/dL Calcium (8.5-10.3) mg/dL Phosphorus (2.5-5.0) mg/dL Magnesium (1.7-2.3) mg/dL Last Dose Date Last Dose Time Vancomycin Trough ug/mL ABX Reporting Has patient been on IV antibiotics over the past 48 hours?: Yes Assessment/Plan Problem List (1) Perforated abdominal viscus: Impression: Patient presents with acute on chronic abdominal pain. CT abdomen/pelvis shows free air, likely related to a perforated ulcer. Taken emergently to the OR on 04/26ex lap was completed with Talha patch repair of perforated gastric ulcer, gastrostomy tube placement, as well as jejunostomy tube placement. 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 Pathology still pending. Currently admitted to the ICU for further medical management and close monitoring. PPN started 04/27; continue until this current bag has run out since she is tolerating the J tube feeds at 45 cc/hr. Continue gentle IV fluid rehydration. Surgery is allowing ice chips for comfort p.o. with reassurance that her G-tube is being suctioned. IV vancomycin, Zosyn, and fluconazole ordered due to perforation. Today is day #3. Leukocytosis noted on postop day #2 at 14. Continues to rise and today she is up to 20.5 but she doesn't have fever, chest congestion. In OR, free fluid was sent for cultures, growing yeast. Blood cultures drawn 04/27 with no growth to date. Those results remain unchanged. General Surgery following. At this time, no change in antibiotics or wound management today. I am concerned about the elevated white cell count. If she spikes a fever, I will reCT (2) Shock: Impression: Resolved. On 04/26, evening, patient received 2 L IV fluids, and then was started on Levophed. Likely hypovolemic shock. Her hemoglobin was rechecked, and was found to be 6.9. She received 1 unit packed red blood cells, with improvement of hemoglobin to 10. Daily hemoglobin has been stable. Today 10.5. MAP goal greater than 65. Continue to follow strict ins and outs, urine output. According to her weight, she should be making about 20 to 40 cc of urine per hour.Yesterday's urine output was 1142. As of midnight last night to this dictation she is 1040. (3) Cerebrovascular accident (CVA): Impression: Remains with mild left-sided deficits. Not on aspirin or statin. From a strength perspective she is significantly below baseline from what is described of her abilities before admission versus what her abilities are after admission. She most likely qualifies for SNF. She was seen by PT yesterday and she has left upper extremity flexor tone, finger contracture, left ankle is flaccid with minimal left knee active range of motion. She is a max assist x 2 for standing and pivoting. Not at her baseline for using her hemiwalker. She would benefit from continued PT while here and also recommends SNF for further rehab. Family may disagree with that. I plan on doing advance care planning conversation to see what goals of care are for her. Qualifiers: CVA mechanism: thrombosis Laterality of affected vessel: right P recerebral and cerebral artery: middle cerebral artery Qualified Code(s): I 63.311 - Cerebral infarction due to thrombosis of right middle cerebral artery (4) HTN (hypertension): Impression: History of hypertension. Takes metoprolol for this as well as for atrial fibrillation. Currently held. Qualifiers: Hypertension type: unspecified Qualified Code(s): I10 - Essential (primary) hypertension (5) Diabetes mellitus: Impression: A1c of 5.1%. Monitor off sliding scale insulin at this time. Today was 147. The highest she has been is 190 on the 25th. Qualifiers: Diabetes mellitus type: type 2 Diabetes mellitus fci insulin use: without assistant terminal manager use Diabetes mellitus complication status: without complication Qualified Code(s): E11.9 - Type 2 diabetes mellitus without complications (6) Afib: Impression: History of atrial fibrillation. On Eliquis and metoprolol. Hold Eliquis at this time. DVT prophylaxis started today. However she is getting more tachycardic. I will be resuming metoprolol at 2.5 mg IV push every 6 hours on a scheduled basis. Qualifiers: Atrial fibrillation type: unspecified Qualified Code(s): I48.91 - Unspecified atrial fibrillation (7) History of pacemaker: Impression: Currently in paced rhythm.
[2025-04-29] MEDS: LORazepam 2 MG/ML VIAL IVP PRN (21:09)
[2025-04-30 07:56] LABS: HCT - HEMATOCRIT 37.2 % (37.0-47.0); HGB - HEMOGLOBIN 10.8 g/dL (12.0-16.0); MEAN PLATELET VOLUME 9.8 fL (7.9-10.8); PLT - PLATELET COUNT 196 10^3/uL (130-450); RED CELL DISTRIBUTION WIDTH 19.9 % (12.0-15.0)
[2025-04-30 07:58] LABS: VBG PH 7.432 (7.31-7.41)
[2025-04-30 08:05] LABS: SLIDE REVIEW? Indicated
[2025-04-30 08:06] LABS: ABNORMAL LYMPHS % (MANUAL) 0 %; BASOPHILS # (MANUAL) 0.0 10^3/uL (0-0.1); EOSINOPHILS # (MANUAL) 0.0 10^3/uL (0-0.7)
[2025-04-30 08:13] LABS: ALT ALANINE AMINOTRANSFERASE 8.0 IU/L (10-60); AST ASPARTATE AMINOTRANSFERASE 14.0 IU/L (10-42); BUN - BLOOD UREA NITROGEN 40.0 mg/dL (6-20); CARBON DIOXIDE - CO2 21.0 mmol/L (21-32); CREATININE 0.7 mg/dL (0.6-1.3); GFR - MDRD 83.0 (>89); PHOSPHORUS 3.2 mg/dL (2.5-5.0)
[2025-04-30 08:32] LABS: BAND NEUTROPHILS % (MANUAL) 3 %; LYMPHOCYTES # (MANUAL) 0.6 10^3/uL (1.5-3.5); LYMPHOCYTES % (MANUAL) 4 %; MONOCYTES # (MANUAL) 0.3 10^3/uL (0.0-1.0); NEUTROPHILS # (MANUAL) 13.1 10^3/uL (1.5-6.6)
--- NOTE | 2025-04-30 08:47 | XRAY Report ---
PROCEDURE: XR Chest 1V INDICATIONS: VON TECHNIQUE: One view of the chest was acquired. COMPARISON: 04/26/2025 FINDINGS: Surgical changes and devices: Left chest wall pacemaker leads are in the region of right atrium and right ventricle. Lungs and pleura: Small bilateral pleural effusion is seen. No pneumothorax. Mild pulmonary vascular congestion. No consolidation. Mediastinum: Mediastinal contours appear normal. Heart size is enlarged. Bones and chest wall: No suspicious bony lesions. Overlying soft tissues appear unremarkable. IMPRESSION: Cardiomegaly and mild pulmonary vascular congestion. No definite focal infiltrate. Small bilateral pleural effusion. No pneumothorax. Reviewed by: Almas James MD on 04/30/2025 8:44 AM PDT Approved by: Almas James MD on 04/30/2025 8:44 AM PDT Station ID: [id number]
[2025-04-30 08:56] LABS: PLATELET ESTIMATE, MANUAL NORMAL (130-450,000) (NORMAL); PLATELET MORPHOLOGY NORMAL APPEARANCE (NORMAL); WBC MORPHOLOGY (MULTIPLE) NORMAL APPEARANCE (NORMAL)
[2025-04-30 08:57] LABS: SLIDE SENT FOR PATH REVIEW? Indicated
[2025-04-30] MEDS: FUROSEMIDE 20 MG/2 ML VIAL IVP ONE (08:58)
--- NOTE | 2025-04-30 09:20 | PROVIDER PROGRESS NOTE ---
Subjective Prog Note Date Prog Note Date: 04/30/25 Prog Note Time: 09:23 Subjective Pt reports feeling: Worse Subjective: Overnight, Danielle had an acute change in mental status described as a sense of impending doom, confusion, and a panic attack. No focal neuro deficits were noted beside her pre-existing left sided weakness. She received 1 dose of Ativan around 2am and had a CXR & Head CT this morning. She was not verbally responsive to questioning this morning but followed commands. Her son is at the bedside. Current Medications Current Medications Current Medications: Current Medications Generic Name Dose Route Start Last Admin Trade Name Freq PRN Reason Stop Dose Admin Bisacodyl 10 mg 04/29/25 10:32 Bisacodyl 10 Mg Supp [place] DAILY PRN Constipation Enoxaparin Sodium 30 mg 04/28/25 09:00 04/29/25 08:45 Enoxaparin 30 Mg/0.3 Ml Syringe SUBQ 30 mg DAILY CINDY Administration Hydromorphone HCl 0.5 mg 04/26/25 17:46 04/30/25 01:48 Hydromorphone 0.5 Mg/0.5 Ml Syringe IVP 0.5 mg Q4H PRN Administration Severe Pain (Level 7-10) Piperacillin Sod/Tazobactam 100 mls @ 25 mls/hr 04/26/25 17:30 04/30/25 05:13 Sod 4.5 gm/ Sodium Chloride IV Infused Q8H CINDY Infusion Fluconazole 100 mls @ 100 mls/hr 04/26/25 18:00 04/29/25 18:05 Diflucan 200 Mg/100 Ml IV Infused Q24H CINDY Infusion Acetaminophen 1,000 mg in 100 mls @ 400 mls/hr 04/27/25 12:00 04/30/25 05:13 Acetaminophen IV Infused Q8H CINDY Infusion Vancomycin HCl 1 gm/ Sodium 250 mls @ 167 mls/hr 04/30/25 12:00 Chloride IV Q24H CINDY Metoprolol Tartrate 2.5 mg 04/29/25 11:00 04/30/25 05:25 Metoprolol 5 Mg/5 Ml Vial IVP 2.5 mg Q6HR CINDY Administration Ondansetron HCl 4 mg 04/26/25 17:08 Ondansetron Odt 4 Mg Tablet TL Q6HR PRN Nausea / Vomiting Ondansetron HCl 4 mg 04/26/25 17:08 Ondansetron 4 Mg/2 Ml Vial IVP Q6HR PRN Nausea / Vomiting Pantoprazole Sodium 40 mg 04/26/25 21:00 04/30/25 08:58 Pantoprazole 40 Mg Vial IVP 40 mg BID CINDY Administration Polyethylene Glycol 17 gm 04/29/25 10:32 04/29/25 17:05 Polyethylene Glycol 3350 17 Gm Packet JT 17 gm DAILY PRN Administration Bowel Protocol Sodium Chloride 10 ml 04/26/25 17:08 04/30/25 00:07 Sodium Chloride Flush 0.9% 10 Ml Syringe IVP 10 ml 0100,0900,1700 CINDY Administration Sodium Chloride 10 ml 04/26/25 17:08 04/28/25 06:36 Sodium Chloride Flush 0.9% 10 Ml Syringe IVP 10 ml PRN PRN Administration NEEDED PER PROVIDER ORDERS Zinc Oxide 113 gm 04/27/25 04:26 04/27/25 04:42 Cod Liver Oil/Zinc Oxide 113 Gm Tube TOP 1 applic PRN PRN Administration Skin Care Objective Vital Signs/Intake & Output Reviewed Vital Signs: Yes Vital Signs: Vital Signs x48h Temp Pulse Pulse Resp BP BP Pulse Ox 04/30/25 09:00 60 25 H 93 04/30/25 08:00 36.8 C 60 26 H 103/63 94 04/30/25 07:00 61 20 96/65 97 04/30/25 06:00 60 19 97/63 95 04/30/25 05:25 60 101/63 04/30/25 05:00 36.5 C 60 20 101/63 96 04/30/25 04:00 60 15 87/54 L 96 04/30/25 03:00 60 14 86/55 L 96 04/30/25 02:00 60 21 96/54 L 96 Intake & Output: Intake & Output 04/27/25 04/28/25 04/29/25 04/30/25 23:59 23:59 23:59 23:59 Intake Total 6524 / 6524 4181 / 4181 4562 / 4562 200 / 200 Output Total 925 / 925 1142 / 1142 1380 / 1380 1000 / 1000 Balance 5599 / 5599 3039 / 3039 3182 / 3182 -800 / -800 Weight (kg) 39 kg 40 kg 42.5 kg 42.5 kg Objective General Appearance: positive Moderate distress (Patient laying in bed, grunting/moaning with each breath. She is not verbally responsive but follows commands. ) and Lethargic Eyes Bilateral: positive No scleral icterus Neck: positive Nml inspection and Trachea midline Respiratory: positive Chest non-tender and Rhonchi (Grunting/moaning with each breath. ); negative No respiratory distress (Tachypneic. ) Cardiovascular: positive Regular rate & rhythm and No murmur Abdomen: positive Non-tender, No distention and Other (Left and right DEMETRIA drains with ~100ml of clear serosanguinous fluid. G tube with brown fluid and particulates. ); negative Guarding or Rebound Skin: positive Warm and Dry Extremities: positive Nml appearance and Pedal edema Neurologic/Psychiatric: positive Disoriented to person, Disoriented to place, Disoriented to time and Slurred/abnml speech (Not verbally responsive but follows commands. ) Lab Results 05/01/25 11:15 05/01/25 11:15 Other Labs: Lab Results x24hrs 04/30/25 04/30/25 04/30/25 Range/Units 07:42 07:42 07:42 WBC (4.8-10.8) x10^3/uL RBC (4.20-5.40) 10^6/uL Hgb (12.0-16.0) g/dL Hct (37.0-47.0) % MCV (81.0-99.0) fL MCH (27.0-31.0) pg MCHC (32.0-36.0) g/dL RDW (12.0-15.0) % Plt Count (130-450) 10^3/uL MPV (7.9-10.8) fL Neut # (Auto) Lymph # (Auto) [place] # (Auto) Eos # (Auto) Baso # (Auto) Absolute Nucleated RBC Total Counted Band Neuts % (Manual) (0 - 10) % Abnorm Lymph % (Manual) % Nucleated RBC % Neutrophils # (Manual) (1.5-6.6) 10^3/uL Lymphocytes # (Manual) (1.5-3.5) 10^3/uL Monocytes # (Manual) (0.0-1.0) 10^3/uL Eosinophils # (Manual) (0-0.7) 10^3/uL Basophils # (Manual) (0-0.1) 10^3/uL Differential Comment Manual Slide Review WBC Morphology (NORMAL) Platelet Estimate (NORMAL) Platelet Morphology (NORMAL) RBC Morph Micro Appear 3+ POIKILOCYTOSIS 2+ ANISOCYTOSIS 2+ OVALOCYTES (NORMAL) VBG pH 7.432 H (7.31-7.41) Ionized Calcium 1.09 (1.09-1.30) mmol/L Sodium 134 L (135-145) mmol/L Potassium 5.1 H (3.5-4.5) mmol/L Chloride 108 (101-111) mmol/L Carbon Dioxide 21 (21-32) mmol/L Anion Gap 5.0 L (6-13) BUN 40 H (6-20) mg/dL Creatinine 0.7 (0.6-1.3) mg/dL Estimated GFR (MDRD) 83 L (>89) Glucose 140 H (74-104) mg/dL Calcium 7.3 L (8.5-10.3) mg/dL Phosphorus 3.2 (2.5-5.0) mg/dL Magnesium 2.1 (1.7-2.3) mg/dL Total Bilirubin 0.8 (0.2-1.0) mg/dL AST 14 (10-42) IU/L ALT 8 L (10-60) IU/L Alkaline Phosphatase 78 (42-121) IU/L Total Protein 4.5 L (6.4-8.9) g/dL Albumin 2.3 L (3.2-5.5) g/dL Globulin 2.2 (2.1-4.2) g/dL Albumin/Globulin Ratio 1.0 (1.0-2.2) Triglycerides 58 mg/dL Slides for Path Review Indicated Crossmatch IS Only 04/30/25 04/30/25 04/30/25 Range/Units 07:42 07:42 07:42 WBC 13.9 H (4.8-10.8) x10^3/uL RBC 4.20 (4.20-5.40) 10^6/uL Hgb 10.8 L (12.0-16.0) g/dL Hct 37.2 (37.0-47.0) % MCV 88.6 (81.0-99.0) fL MCH 25.7 L (27.0-31.0) pg MCHC 29.0 L (32.0-36.0) g/dL RDW 19.9 H (12.0-15.0) % Plt Count 196 (130-450) 10^3/uL MPV 9.8 (7.9-10.8) fL Neut # (Auto) Not Reportable Lymph # (Auto) Not Reportable [place] # (Auto) Not Reportable Eos # (Auto) Not Reportable Baso # (Auto) Not Reportable Absolute Nucleated RBC Not Reportable Total Counted 100 Band Neuts % (Manual) 3 (0 - 10) % Abnorm Lymph % (Manual) 0 % Nucleated RBC % Not Reportable Neutrophils # (Manual) 13.1 H (1.5-6.6) 10^3/uL Lymphocytes # (Manual) 0.6 L (1.5-3.5) 10^3/uL Monocytes # (Manual) 0.3 (0.0-1.0) 10^3/uL Eosinophils # (Manual) 0.0 (0-0.7) 10^3/uL Basophils # (Manual) 0.0 (0-0.1) 10^3/uL Differential Comment MANUAL DIFFERENTIAL Manual Slide Review Indicated WBC Morphology NORMAL APPEARANCE (NORMAL) Platelet Estimate NORMAL (130-450,000) (NORMAL) Platelet Morphology NORMAL APPEARANCE (NORMAL) RBC Morph Micro Appear 2+ SCHISTOCYTES 4+ PERICO CELLS 4+ ACANTHOCYTES (NORMAL) VBG pH (7.31-7.41) Ionized Calcium (1.09-1.30) mmol/L Sodium (135-145) mmol/L Potassium (3.5-4.5) mmol/L Chloride (101-111) mmol/L Carbon Dioxide (21-32) mmol/L Anion Gap (6-13) BUN (6-20) mg/dL Creatinine (0.6-1.3) mg/dL Estimated GFR (MDRD) (>89) Glucose (74-104) mg/dL Calcium (8.5-10.3) mg/dL Phosphorus (2.5-5.0) mg/dL Magnesium (1.7-2.3) mg/dL Total Bilirubin (0.2-1.0) mg/dL AST (10-42) IU/L ALT (10-60) IU/L Alkaline Phosphatase (42-121) IU/L Total Protein (6.4-8.9) g/dL Albumin (3.2-5.5) g/dL Globulin (2.1-4.2) g/dL Albumin/Globulin Ratio (1.0-2.2) Triglycerides mg/dL Slides for Path Review Crossmatch IS Only 04/26/25 Range/Units 11:11 WBC (4.8-10.8) x10^3/uL RBC (4.20-5.40) 10^6/uL Hgb (12.0-16.0) g/dL Hct (37.0-47.0) % MCV (81.0-99.0) fL MCH (27.0-31.0) pg MCHC (32.0-36.0) g/dL RDW (12.0-15.0) % Plt Count (130-450) 10^3/uL MPV (7.9-10.8) fL Neut # (Auto) Lymph # (Auto) [place] # (Auto) Eos # (Auto) Baso # (Auto) Absolute Nucleated RBC Total Counted Band Neuts % (Manual) (0 - 10) % Abnorm Lymph % (Manual) % Nucleated RBC % Neutrophils # (Manual) (1.5-6.6) 10^3/uL Lymphocytes # (Manual) (1.5-3.5) 10^3/uL Monocytes # (Manual) (0.0-1.0) 10^3/uL Eosinophils # (Manual) (0-0.7) 10^3/uL Basophils # (Manual) (0-0.1) 10^3/uL Differential Comment Manual Slide Review WBC Morphology (NORMAL) Platelet Estimate (NORMAL) Platelet Morphology (NORMAL) RBC Morph Micro Appear (NORMAL) VBG pH (7.31-7.41) Ionized Calcium (1.09-1.30) mmol/L Sodium (135-145) mmol/L Potassium (3.5-4.5) mmol/L Chloride (101-111) mmol/L Carbon Dioxide (21-32) mmol/L Anion Gap (6-13) BUN (6-20) mg/dL Creatinine (0.6-1.3) mg/dL Estimated GFR (MDRD) (>89) Glucose (74-104) mg/dL Calcium (8.5-10.3) mg/dL Phosphorus (2.5-5.0) mg/dL Magnesium (1.7-2.3) mg/dL Total Bilirubin (0.2-1.0) mg/dL AST (10-42) IU/L ALT (10-60) IU/L Alkaline Phosphatase (42-121) IU/L Total Protein (6.4-8.9) g/dL Albumin (3.2-5.5) g/dL Globulin (2.1-4.2) g/dL Albumin/Globulin Ratio (1.0-2.2) Triglycerides mg/dL Slides for Path Review Crossmatch IS Only See Detail Diagnostic Imaging Diagnostic Imaging Results: positive Final report reviewed and Read independently Other Results/Comments Other Results/Comments: CXR: Cardiomegaly and mild pulmonary vascular congestion. No definite focal infiltrate. Small bilateral pleural effusion. No pneumothorax. CT Head: No acute intracranial pathology. 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 ABX Reporting Has patient been on IV antibiotics over the past 48 hours?: Yes
--- NOTE | 2025-04-30 09:30 | CT Report ---
PROCEDURE: CT Head WO INDICATIONS: AMS TECHNIQUE: CT of the head was performed, without intravenous contrast. Reformats: Coronal and sagittal. For radiation dose reduction, the following was used: automated exposure control, adjustment of mA and/or kV according to patient size. COMPARISON: None. FINDINGS: Image quality: 07/23/2018. CSF spaces: Basal cisterns are patent. No extra-axial fluid collections. Ventricles are normal in size and shape. Brain: No midline shift. Large old right MCA territory infarction is seen with encephalomalacia. No intracranial mass effect or hemorrhage. Arias-white matter interface is normal. Age appropriate volume loss and periventricular white matter hypoattenuation, likely chronic ischemic change. Skull and face: Calvarium and visualized facial bones are intact, without suspicious lesions. Sinuses: Visualized sinuses and mastoids are clear. IMPRESSION: No acute intracranial pathology. 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 Reviewed by: Almas Caal MD on 04/30/2025 9:26 AM PDT Approved by: Almas Caal MD on 04/30/2025 9:26 AM PDT Station ID: [id number]
--- NOTE | 2025-04-30 11:13 | PROVIDER PROGRESS NOTE ---
Subjective Subjective Subjective: Overnight, patient became increasingly anxious and agitated. IV Ativan as needed was ordered, and patient received 2 doses of this. This morning, although she is conversant, and alert and oriented x 2, she does appear agitated, altered, and confused. Stat CT head was done, followed by cord stroke. CT head shows a large old infarction right MCA distribution with extensive encephalomalacia. CTA did not show any large vessel occlusion. Code stroke was called, and I did speak with Dr. Delvalle, neurologist. She recommended starting Keppra, loading with 1 g daily, as well as continuing 500 mg twice daily after this due to this large volume stroke in the past, and high chance of seizure activity with that. She did recommend considering EEG if patient is persistently encephalopathic. Diet: Tube feeds Code: Full code - will continue discussions pending pathology on overall goals of care Dispo: SNF on discharge, choiced by SW today DVT: Eliquis resumed 04/30 Current Medications Current Medications Current Medications: Current Medications Generic Name Dose Route Start Last Admin Trade Name Freq PRN Reason Stop Dose Admin Bisacodyl 10 mg 04/29/25 10:32 Bisacodyl 10 Mg Supp OH DAILY PRN Constipation Enoxaparin Sodium 30 mg 04/28/25 09:00 04/30/25 09:23 Enoxaparin 30 Mg/0.3 Ml Syringe SUBQ 30 mg DAILY CINDY Administration Hydromorphone HCl 0.5 mg 04/26/25 17:46 04/30/25 01:48 Hydromorphone 0.5 Mg/0.5 Ml Syringe IVP 0.5 mg Q4H PRN Administration Severe Pain (Level 7-10) Piperacillin Sod/Tazobactam 100 mls @ 25 mls/hr 04/26/25 17:30 04/30/25 09:23 Sod 4.5 gm/ Sodium Chloride IV 25 mls/hr Q8H CINDY Administration Fluconazole 100 mls @ 100 mls/hr 04/26/25 18:00 04/29/25 18:05 Diflucan 200 Mg/100 Ml IV Infused Q24H CINDY Infusion Acetaminophen 1,000 mg in 100 mls @ 400 mls/hr 04/27/25 12:00 04/30/25 05:13 Acetaminophen IV Infused Q8H CINDY Infusion Vancomycin HCl 1 gm/ Sodium 250 mls @ 167 mls/hr 04/30/25 12:00 Chloride IV Q24H CINDY Metoprolol Tartrate 2.5 mg 04/29/25 11:00 04/30/25 05:25 Metoprolol 5 Mg/5 Ml Vial IVP 2.5 mg Q6HR CINDY Administration Ondansetron HCl 4 mg 04/26/25 17:08 Ondansetron Odt 4 Mg Tablet TL Q6HR PRN Nausea / Vomiting Ondansetron HCl 4 mg 04/26/25 17:08 Ondansetron 4 Mg/2 Ml Vial IVP Q6HR PRN Nausea / Vomiting Pantoprazole Sodium 40 mg 04/26/25 21:00 04/30/25 08:58 Pantoprazole 40 Mg Vial IVP 40 mg BID CINDY Administration Polyethylene Glycol 17 gm 04/29/25 10:32 04/29/25 17:05 Polyethylene Glycol 3350 17 Gm Packet JT 17 gm DAILY PRN Administration Bowel Protocol Sodium Chloride 10 ml 04/26/25 17:08 04/30/25 09:23 Sodium Chloride Flush 0.9% 10 Ml Syringe IVP 10 ml 0100,0900,1700 CINDY Administration Sodium Chloride 10 ml 04/26/25 17:08 04/28/25 06:36 Sodium Chloride Flush 0.9% 10 Ml Syringe IVP 10 ml PRN PRN Administration NEEDED PER PROVIDER ORDERS Zinc Oxide 113 gm 04/27/25 04:26 04/27/25 04:42 Cod Liver Oil/Zinc Oxide 113 Gm Tube TOP 1 applic PRN PRN Administration Skin Care Objective Vital Signs/Intake & Output Reviewed Vital Signs: Yes Vital Signs: Vital Signs x48h Temp Pulse Pulse Resp BP BP Pulse Ox 04/30/25 11:05 60 30 H 151/73 H 95 04/30/25 10:00 60 29 H 115/67 93 04/30/25 09:00 60 25 H 104/65 93 04/30/25 08:00 98.2 F 60 26 H 103/63 94 04/30/25 07:00 61 20 96/65 97 04/30/25 06:00 60 19 97/63 95 04/30/25 05:25 60 101/63 04/30/25 05:00 97.7 F 60 20 101/63 96 04/30/25 04:00 60 15 87/54 L 96 Intake & Output: Intake & Output 04/27/25 04/28/25 04/29/25 04/30/25 23:59 23:59 23:59 23:59 Intake Total 6524 / 6524 4181 / 4181 4562 / 4562 1806 / 1806 Output Total 925 / 925 1142 / 1142 1380 / 1380 1070 / 1070 Balance 5599 / 5599 3039 / 3039 3182 / 3182 736 / 736 Weight (kg) 39 kg 40 kg 42.5 kg 42.5 kg Objective General Appearance: positive No acute distress, Alert and Other (Frail and cachectic in appearance with some temporal lobe wasting noted.); negative Anxious Eyes Bilateral: positive Normal inspection, PERRL and EOMI ENT: positive ENT inspection nml, Pharynx nml and No signs of dehydration Neck: positive Nml inspection, Thyroid nml and No JVD Respiratory: positive Chest non-tender, No respiratory distress and Breath sounds nml; negative Wheezes, Rales or Rhonchi Cardiovascular: positive No murmur, No gallop and Irregularly irregular; negative Tachycardia or Systolic murmur Abdomen: positive Other (Midline incision. 2 DEMETRIA drains noted with serosanguineous drainage. G-tube, J-tube in place. No erythema, swelling, induration or fluctuance around site. ) Back: positive Nml inspection; negative CVA tenderness (R) or CVA tenderness (L) Skin: positive Color nml, No rash, Warm and Dry Extremities: positive Non-tender, Nml appearance and No pedal edema; negative Full ROM (Mild weakness of LLE and LUE to flexion and extension. No sensory deficits noted. ) Neurologic/Psychiatric: positive Mood/affect nml, Disoriented to place, Weakness, Slurred/abnml speech and Other (Slight facial droop, slight verbal apraxia, left side weakness from previous stroke, and slight contraction at elbow, wrist, hip and knee.) Lab Results 04/30/25 07:42 04/30/25 07:42 Other Labs: Lab Results x24hrs 04/30/25 04/30/25 04/30/25 Range/Units 07:42 07:42 07:42 WBC (4.8-10.8) x10^3/uL RBC (4.20-5.40) 10^6/uL Hgb (12.0-16.0) g/dL Hct (37.0-47.0) % MCV (81.0-99.0) fL MCH (27.0-31.0) pg MCHC (32.0-36.0) g/dL RDW (12.0-15.0) % Plt Count (130-450) 10^3/uL MPV (7.9-10.8) fL Neut # (Auto) Lymph # (Auto) [place] # (Auto) Eos # (Auto) Baso # (Auto) Absolute Nucleated RBC Total Counted Band Neuts % (Manual) (0 - 10) % Abnorm Lymph % (Manual) % Nucleated RBC % Neutrophils # (Manual) (1.5-6.6) 10^3/uL Lymphocytes # (Manual) (1.5-3.5) 10^3/uL Monocytes # (Manual) (0.0-1.0) 10^3/uL Eosinophils # (Manual) (0-0.7) 10^3/uL Basophils # (Manual) (0-0.1) 10^3/uL Differential Comment Manual Slide Review WBC Morphology (NORMAL) Platelet Estimate (NORMAL) Platelet Morphology (NORMAL) RBC Morph Micro Appear 3+ POIKILOCYTOSIS 2+ ANISOCYTOSIS 2+ OVALOCYTES (NORMAL) VBG pH 7.432 H (7.31-7.41) Ionized Calcium 1.09 (1.09-1.30) mmol/L Sodium 134 L (135-145) mmol/L Potassium 5.1 H (3.5-4.5) mmol/L Chloride 108 (101-111) mmol/L Carbon Dioxide 21 (21-32) mmol/L Anion Gap 5.0 L (6-13) BUN 40 H (6-20) mg/dL Creatinine 0.7 (0.6-1.3) mg/dL Estimated GFR (MDRD) 83 L (>89) Glucose 140 H (74-104) mg/dL Calcium 7.3 L (8.5-10.3) mg/dL Phosphorus 3.2 (2.5-5.0) mg/dL Magnesium 2.1 (1.7-2.3) mg/dL Total Bilirubin 0.8 (0.2-1.0) mg/dL AST 14 (10-42) IU/L ALT 8 L (10-60) IU/L Alkaline Phosphatase 78 (42-121) IU/L Total Protein 4.5 L (6.4-8.9) g/dL Albumin 2.3 L (3.2-5.5) g/dL Globulin 2.2 (2.1-4.2) g/dL Albumin/Globulin Ratio 1.0 (1.0-2.2) Triglycerides 58 mg/dL Slides for Path Review Indicated Crossmatch IS Only 04/30/25 04/30/25 04/30/25 Range/Units 07:42 07:42 07:42 WBC 13.9 H (4.8-10.8) x10^3/uL RBC 4.20 (4.20-5.40) 10^6/uL Hgb 10.8 L (12.0-16.0) g/dL Hct 37.2 (37.0-47.0) % MCV 88.6 (81.0-99.0) fL MCH 25.7 L (27.0-31.0) pg MCHC 29.0 L (32.0-36.0) g/dL RDW 19.9 H (12.0-15.0) % Plt Count 196 (130-450) 10^3/uL MPV 9.8 (7.9-10.8) fL Neut # (Auto) Not Reportable Lymph # (Auto) Not Reportable [place] # (Auto) Not Reportable Eos # (Auto) Not Reportable Baso # (Auto) Not Reportable Absolute Nucleated RBC Not Reportable Total Counted 100 Band Neuts % (Manual) 3 (0 - 10) % Abnorm Lymph % (Manual) 0 % Nucleated RBC % Not Reportable Neutrophils # (Manual) 13.1 H (1.5-6.6) 10^3/uL Lymphocytes # (Manual) 0.6 L (1.5-3.5) 10^3/uL Monocytes # (Manual) 0.3 (0.0-1.0) 10^3/uL Eosinophils # (Manual) 0.0 (0-0.7) 10^3/uL Basophils # (Manual) 0.0 (0-0.1) 10^3/uL Differential Comment MANUAL DIFFERENTIAL Manual Slide Review Indicated WBC Morphology NORMAL APPEARANCE (NORMAL) Platelet Estimate NORMAL (130-450,000) (NORMAL) Platelet Morphology NORMAL APPEARANCE (NORMAL) RBC Morph Micro Appear 2+ SCHISTOCYTES 4+ PERICO CELLS 4+ ACANTHOCYTES (NORMAL) VBG pH (7.31-7.41) Ionized Calcium (1.09-1.30) mmol/L Sodium (135-145) mmol/L Potassium (3.5-4.5) mmol/L Chloride (101-111) mmol/L Carbon Dioxide (21-32) mmol/L Anion Gap (6-13) BUN (6-20) mg/dL Creatinine (0.6-1.3) mg/dL Estimated GFR (MDRD) (>89) Glucose (74-104) mg/dL Calcium (8.5-10.3) mg/dL Phosphorus (2.5-5.0) mg/dL Magnesium (1.7-2.3) mg/dL Total Bilirubin (0.2-1.0) mg/dL AST (10-42) IU/L ALT (10-60) IU/L Alkaline Phosphatase (42-121) IU/L Total Protein (6.4-8.9) g/dL Albumin (3.2-5.5) g/dL Globulin (2.1-4.2) g/dL Albumin/Globulin Ratio (1.0-2.2) Triglycerides mg/dL Slides for Path Review Crossmatch IS Only 04/26/25 Range/Units 11:11 WBC (4.8-10.8) x10^3/uL RBC (4.20-5.40) 10^6/uL Hgb (12.0-16.0) g/dL Hct (37.0-47.0) % MCV (81.0-99.0) fL MCH (27.0-31.0) pg MCHC (32.0-36.0) g/dL RDW (12.0-15.0) % Plt Count (130-450) 10^3/uL MPV (7.9-10.8) fL Neut # (Auto) Lymph # (Auto) [place] # (Auto) Eos # (Auto) Baso # (Auto) Absolute Nucleated RBC Total Counted Band Neuts % (Manual) (0 - 10) % Abnorm Lymph % (Manual) % Nucleated RBC % Neutrophils # (Manual) (1.5-6.6) 10^3/uL Lymphocytes # (Manual) (1.5-3.5) 10^3/uL Monocytes # (Manual) (0.0-1.0) 10^3/uL Eosinophils # (Manual) (0-0.7) 10^3/uL Basophils # (Manual) (0-0.1) 10^3/uL Differential Comment Manual Slide Review WBC Morphology (NORMAL) Platelet Estimate (NORMAL) Platelet Morphology (NORMAL) RBC Morph Micro Appear (NORMAL) VBG pH (7.31-7.41) Ionized Calcium (1.09-1.30) mmol/L Sodium (135-145) mmol/L Potassium (3.5-4.5) mmol/L Chloride (101-111) mmol/L Carbon Dioxide (21-32) mmol/L Anion Gap (6-13) BUN (6-20) mg/dL Creatinine (0.6-1.3) mg/dL Estimated GFR (MDRD) (>89) Glucose (74-104) mg/dL Calcium (8.5-10.3) mg/dL Phosphorus (2.5-5.0) mg/dL Magnesium (1.7-2.3) mg/dL Total Bilirubin (0.2-1.0) mg/dL AST (10-42) IU/L ALT (10-60) IU/L Alkaline Phosphatase (42-121) IU/L Total Protein (6.4-8.9) g/dL Albumin (3.2-5.5) g/dL Globulin (2.1-4.2) g/dL Albumin/Globulin Ratio (1.0-2.2) Triglycerides mg/dL Slides for Path Review Crossmatch IS Only See Detail Assessment/Plan Problem List (1) Perforated abdominal viscus: Impression: Patient presents with acute on chronic abdominal pain. CT abdomen/pelvis shows free air, likely related to a perforated ulcer. Taken emergently to the OR on 04/26ex lap was completed with Talha patch repair of perforated gastric ulcer, gastrostomy tube placement, as well as jejunostomy tube placement. 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 Currently admitted to the ICU for further medical management and close monitoring. Patient now receiving tube feeds at goal, tolerating well. IV vancomycin, Zosyn, and fluconazole ordered due to perforation. Leukocytosis noted. Continued. Will complete five day course tomorrow. In OR, free fluid was sent for cultures, growing yeast. Blood cultures drawn 04/27 with no growth to date. General Surgery following. (2) Acute metabolic encephalopathy: Impression: Overnight, patient became increasingly anxious and agitated. IV Ativan as needed was ordered, and patient received 2 doses of this. This morning, although she is conversant, and alert and oriented x 2, she does appear agitated, altered, and confused. Stat CT head was done, followed by code stroke. CT head shows a large old infarction right MCA distribution with extensive encephalomalacia. CTA did not show any large vessel occlusion. I did speak with Dr. Delvalle, neurologist. She recommended starting Keppra, loading with 1 g daily, as well as continuing 500 mg twice daily after this due to this large volume stroke in the past, and high chance of seizure activity with that. She did recommend considering EEG if patient is persistently encephalopathic. (3) Fluid overload: Impression: Patient appears tachypneic, lung exam with some crackles noted in bibasilar bases, chest x-ray with interstitial edema, pleural effusions. One-time IV Lasix given. IV fluids stopped. Qualifiers: Hypervolemia type: unspecified Qualified Code(s): E87.70 - Fluid overload, unspecified (4) Shock: Impression: Resolved. On 04/26, evening, patient received 2 L IV fluids, and then was started on Levophed. Likely hypovolemic shock. Her hemoglobin was rechecked, and was found to be 6.9. She received 1 unit packed red blood cells, with improvement of hemoglobin to 10. MAP goal greater than 65. Continue to follow strict ins and outs, urine output. According to her weight, she should be making about 20 to 40 cc of urine per hour. (5) Cerebrovascular accident (CVA): Impression: Remains with mild left-sided deficits. Not on aspirin or statin. Qualifiers: CVA mechanism: thrombosis Laterality of affected vessel: right P recerebral and cerebral artery: middle cerebral artery Qualified Code(s): I 63.311 - Cerebral infarction due to thrombosis of right middle cerebral artery (6) HTN (hypertension): Impression: History of hypertension. Takes metoprolol for this as well as for atrial fibrillation. IV metoprolol started. Qualifiers: Hypertension type: unspecified Qualified Code(s): I10 - Essential (primary) hypertension (7) Diabetes mellitus: Impression: A1c of 5.1%. Monitor off sliding scale insulin at this time. Qualifiers: Diabetes mellitus type: type 2 Diabetes mellitus alf insulin use: without alf use Diabetes mellitus complication status: without complication Qualified Code(s): E11.9 - Type 2 diabetes mellitus without complications (8) Afib: Impression: History of atrial fibrillation. On Eliquis and metoprolol. Hold Eliquis at this time. DVT prophylaxis started 2 days ago; will resume Eliquis tonight. Qualifiers: Atrial fibrillation type: unspecified Qualified Code(s): I48.91 - Unspecified atrial fibrillation (9) History of pacemaker: Impression: Currently in paced rhythm.
--- NOTE | 2025-04-30 11:15 | CT Report ---
PROCEDURE: CT Angio Head/Neck INDICATIONS: AMS CONTRAST: Omni 300 100ml TECHNIQUE: After the administration of intravenous contrast, images were acquired from the aortic arch through the [place] of [place]. 3-dimensional [id number] (MIP) and volume rendering reformats were acquired of the central intracranial vasculature and neck separately. COMPARISON: CT head dated 04/30/2025 and 07/23/2018. FINDINGS: Image quality: Diagnostic. Cerebral CT Angiogram: Internal carotid arteries: No acute findings. Intracranial ICA are patent with no significant stenosis. No occlusion. No aneurysm. Anterior cerebral arteries: Unremarkable. No significant stenosis. No occlusion. No aneurysm. Middle cerebral arteries: Unremarkable. No significant stenosis. No occlusion. No aneurysm. Posterior cerebral arteries: Unremarkable. No significant stenosis. No occlusion. No aneurysm. Basilar artery: Unremarkable. No significant stenosis. No occlusion. No aneurysm. Vertebral arteries: Unremarkable as visualized. Dural venous sinuses: Unremarkable given phase of enhancement. Other: Arterial phase appearance of the brain parenchyma is unremarkable. Neck CT Angiogram: Internal carotid arteries: Unremarkable. No significant stenosis. No dissection or occlusion. Common carotid arteries: Unremarkable. No significant stenosis. No dissection or occlusion. External carotid arteries: Unremarkable. No occlusion. Vertebral arteries: Unremarkable. No significant stenosis. No dissection or occlusion. Aortic Arch and Mediastinum: Partially visualized aortic arch unremarkable without evidence of aneurysm. Origins of the great vessels unremarkable. Other: [id number] bilateral pleural effusion is seen with adjacent compressive atelectasis in the posterior aspect of bilateral lung [place]. Heart size is enlarged, no pericardial effusion. IMPRESSION: No significant intracranial arterial abnormalities are seen. No hemodynamically significant stenosis can be seen within the arteries of the neck. Small to moderate bilateral pleural effusion and dependent atelectasis in the posterior aspect of bilateral lung [place]. Cardiomegaly, no pericardial effusion. The estimate of stenosis included in the report of the imaging study was calculated using the NASCET method Reviewed by: Almas James MD on 04/30/2025 11:12 AM PDT Approved by: Almas James MD on 04/30/2025 11:12 AM PDT Station ID: [id number]
[2025-04-30] MEDS: VANCOMYCIN INJ 1 GM in SODIUM CHLORIDE 0.9% 250 ML IV SCH (12:20)
[2025-04-30] MEDS: KETOROLAC 15 MG/ML VIAL IVP PRN (20:10)
[2025-04-30] MEDS: APIXABAN 5 MG TABLET JT SCH (20:51)
[2025-04-30] MEDS ORDERED: SODIUM CHLORIDE 0.9% 1,000 ML ONE (22:26)
[2025-04-30] MEDS: SODIUM CHLORIDE 0.9% 500 ML IV ONE (22:28)
[2025-04-30 22:57] LABS: HCT - HEMATOCRIT 28.9 % (37.0-47.0); HGB - HEMOGLOBIN 8.7 g/dL (12.0-16.0); MEAN PLATELET VOLUME 10.3 fL (7.9-10.8); NRBC ABSOLUTE COUNT (AUTO) 0.03 x10^3/uL; NUCLEATED RED BLOOD CELLS AUTO 0.3 /100WBC; PLT - PLATELET COUNT 152 10^3/uL (130-450); RED CELL DISTRIBUTION WIDTH 20.5 % (12.0-15.0)
[2025-04-30 23:05] LABS: INR 2.0 (0.8-1.2); PT - PROTHROMBIN TIME 21.5 secs (9.9-12.6)
[2025-04-30 23:10] LABS: SLIDE REVIEW? Indicated
--- NOTE | 2025-04-30 23:11 | PROVIDER PROGRESS NOTE ---
Orchestrator Note Orchestrator Note Orchestrator Note: I was called for low MAP and SBP 71 mm HG, IVF were discontinued due to concern of fluid overload, i gave bolus NS and Patient responded to fluid on 3 antibiotics (zosyn + Vanco + antifungal) will restart IVF fo r now, will order CXR, as per phlebotomy and RN unable to draw lactate due to poor veins, last 24 hrs course is reviewed, discussed with RN to speak and notify surgeon as well. pending labs .
[2025-04-30 23:14] LABS: ALT ALANINE AMINOTRANSFERASE 16.0 IU/L (10-60); AST ASPARTATE AMINOTRANSFERASE 31.0 IU/L (10-42); BUN - BLOOD UREA NITROGEN 38.0 mg/dL (6-20); CARBON DIOXIDE - CO2 21.0 mmol/L (21-32); CREATININE 0.8 mg/dL (0.6-1.3); GFR - MDRD 72.0 (>89)
[2025-04-30] MEDS: SODIUM CHLORIDE 0.9% 1,000 ML IV SCH (23:24)
[2025-04-30 23:34] LABS: PLATELET ESTIMATE, MANUAL NORMAL (130-450,000) (NORMAL); PLATELET MORPHOLOGY NORMAL APPEARANCE (NORMAL)
[2025-04-30 23:55] LABS: VBG BASE EXCESS -2.8 mmol/L (-2 - +2); VBG PCO2 35.6 mmHg (41-51); VBG PH 7.399 (7.31-7.41); VBG PO2 56.8 mmHg (25-47); VBG TOTAL CO2 23.3 mmol/L (24-29)
--- NOTE | 2025-05-01 00:12 | XRAY Report ---
PROCEDURE: XR Chest 1V INDICATIONS: Volume overload TECHNIQUE: One view of the chest was acquired. COMPARISON: CXR 04/30/2025. FINDINGS: Surgical changes and devices: Left pacemaker. Lungs and pleura: No pneumothorax. Small left pleural effusions are suspected. Prominent perihilar markings no consolidation. Mediastinum: Mediastinal contours appear normal. Heart size is enlarged. Bones and chest wall: No suspicious bony lesions. Overlying soft tissues appear unremarkable. IMPRESSION: Suspect mild fluid overload and small bilateral pleural effusions. Cardiomegaly. Reviewed by: Pako Sierra MD on 05/01/2025 12:08 AM PDT Approved by: Pako Sierra MD on 05/01/2025 12:08 AM PDT Station ID: [id number]
[2025-05-01] MEDS: NOREPINEPHRINE/0.9 % NS 8 MG/250 ML BAG IV SCH (02:37)
--- NOTE | 2025-05-01 04:30 | ED Physician Documentation ---
ED Addendum Addendum Addendum: telehealth doc called me and requested I place a central line. R IJ placed under ultrasound guidance using sterile technique. no complications. ebl 10cc. patient tolerated well. confirmed placement by cxr. Discharge Plan Discharge Patient Disposition: [facility] DC/Xfer Condition: Serious Clinical Impression: Perforated abdominal viscus, SMAS (superior mesenteric artery syndrome) Interventions: ED Admission Assessment Last Done: 04/26/25 11:40 Vitals documented within 30 minutes of discharge?: Yes
[2025-05-01 06:00] LABS: HCT - HEMATOCRIT 26.3 % (37.0-47.0); HGB - HEMOGLOBIN 8.0 g/dL (12.0-16.0); MEAN PLATELET VOLUME 9.0 fL (7.9-10.8); PLT - PLATELET COUNT 163 10^3/uL (130-450); RED CELL DISTRIBUTION WIDTH 20.8 % (12.0-15.0)
[2025-05-01 06:03] LABS: VBG PH 7.402 (7.31-7.41)
[2025-05-01 06:05] LABS: SLIDE REVIEW? Indicated
[2025-05-01 06:06] LABS: ABNORMAL LYMPHS % (MANUAL) 0 %; BAND NEUTROPHILS % (MANUAL) 0 %; BASOPHILS # (MANUAL) 0.0 10^3/uL (0-0.1)
[2025-05-01 06:19] LABS: BUN - BLOOD UREA NITROGEN 38.0 mg/dL (6-20); CARBON DIOXIDE - CO2 22.0 mmol/L (21-32); CREATININE 0.8 mg/dL (0.6-1.3); GFR - MDRD 72.0 (>89); PHOSPHORUS 3.7 mg/dL (2.5-5.0)
[2025-05-01 06:28] LABS: EOSINOPHILS # (MANUAL) 0.5 10^3/uL (0-0.7); LYMPHOCYTES # (MANUAL) 0.5 10^3/uL (1.5-3.5); LYMPHOCYTES % (MANUAL) 4 %; MONOCYTES # (MANUAL) 0.4 10^3/uL (0.0-1.0); NEUTROPHILS # (MANUAL) 11.8 10^3/uL (1.5-6.6)
[2025-05-01 06:33] LABS: PLATELET ESTIMATE, MANUAL NORMAL (130-450,000) (NORMAL); PLATELET MORPHOLOGY NORMAL APPEARANCE (NORMAL); WBC MORPHOLOGY (MULTIPLE) NORMAL APPEARANCE (NORMAL)
[2025-05-01] MEDS: MAGNESIUM SULFATE 2 GRAM 2 GM/50 ML BAG IV ONE (06:49)
[2025-05-01 07:14] LABS: HCT - HEMATOCRIT 25.9 % (37.0-47.0); HGB - HEMOGLOBIN 7.8 g/dL (12.0-16.0); MEAN PLATELET VOLUME 10.1 fL (7.9-10.8); PLT - PLATELET COUNT 172 10^3/uL (130-450); RED CELL DISTRIBUTION WIDTH 20.7 % (12.0-15.0)
[2025-05-01 07:19] LABS: ABNORMAL LYMPHS % (MANUAL) 0 %; BASOPHILS # (MANUAL) 0.0 10^3/uL (0-0.1); EOSINOPHILS # (MANUAL) 0.0 10^3/uL (0-0.7)
--- NOTE | 2025-05-01 07:24 | PHARMACY PROGRESS NOTE ---
Vancomycin Therapy Monitoring Patient Information Vancomycin Pt Height (inches): 147 Vancomycin Patient Weight (kg): 42.5 Vanco Rx Serum Creatinine (mg/dL): 0.8 Concurrent Antibiotics: ZOSYN Vancomycin Therapy Goals Vancomycin Target Range: Vancomycin AUC Target Range 400-600 mcg*h/ml Assessment of Current Therapy Current Vancomycin Maintenance Regimen (if applicable): 500 MG IV Q12 HOURS Vancomycin Current Regimen: Supratherapeutic Levels Estimated Cmin (Trough, mcg/ml): 20.4 Plan: Current Vancomycin Maintenance Regimen (if applicable): 1 GRAM IV EVERY 24 HOURS
[2025-05-01 07:56] LABS: BAND NEUTROPHILS % (MANUAL) 7 %; LYMPHOCYTES # (MANUAL) 0.3 10^3/uL (1.5-3.5); LYMPHOCYTES % (MANUAL) 2 %; MONOCYTES # (MANUAL) 0.4 10^3/uL (0.0-1.0); NEUTROPHILS # (MANUAL) 13.1 10^3/uL (1.5-6.6); NUCLEATED RBC (MANUAL) 1 %
--- NOTE | 2025-05-01 08:08 | XRAY Report ---
PROCEDURE: XR Chest for Line Placement INDICATIONS: central line placement TECHNIQUE: One view of the chest was acquired. COMPARISON: Same day CT FINDINGS: Surgical changes and devices: Right IJ central venous catheter tip projects over the cavoatrial junction. Left chest wall generator with cardiac leads. Lungs and pleura: Small pleural effusions, right greater than left. Increased pulmonary markings and parabronchial cuffing. Mediastinum: Cardiomegaly. Normal contour otherwise. Bones and chest wall: No suspicious bony lesions. Overlying soft tissues appear unremarkable. IMPRESSION: Support devices project over the appropriate positions. Stable moderate pulmonary edema and small pleural effusions. Reviewed by: Kali Guevara MD on 05/01/2025 8:05 AM PDT Approved by: Kali Guevara MD on 05/01/2025 8:05 AM PDT Station ID: [email or web address]
--- NOTE | 2025-05-01 08:14 | CT Report ---
PROCEDURE: CT Abdomen/Pelvis W INDICATIONS: post op laparotomy, shock hypotension CONTRAST: Omni 300 100ml TECHNIQUE: After the administration of intravenous contrast, a CT scan of the abdomen and pelvis was performed. Images were recorded and evaluated at appropriate window settings. Reformats: coronal and sagittal. For radiation dose reduction, the following was used: automated exposure control, adjustment of mA and/or kV according to patient size. COMPARISON: CT 04/26/2025 FINDINGS: Image quality: Diagnostic. Lower chest: Moderate pleural effusions and cardiomegaly. Partially visualized cardiac leads. Liver: No solid mass. Gallbladder: No radiopaque stones or wall thickening. Biliary tree: No intrahepatic or extrahepatic dilation, accounting for age. Spleen: No splenomegaly. Pancreas: No pancreatic ductal dilation. Adrenals: No adrenal nodule. Kidneys and ureters: No hydronephrosis. No renal cystic lesion which requires follow up. No solid mass. Stomach, bowel and peritoneum: Diffuse small bowel hyperattenuating mucosa relative to the psoas muscle. Small volume ascites and peritoneal thickening. Trace pneumoperitoneum. New percutaneous gastrostomy tube. Abdominal drains terminate along the right paracolic gutter and left posterior stomach. Lymph nodes: No central or retroperitoneal adenopathy. Vessels: No infrarenal aortic aneurysm. Patent portal vein. PELVIS Reproductive organs: Unremarkable. Bladder: No abnormal wall thickening. Pelvic lymph nodes: No pelvic adenopathy by size criteria. Bones: No aggressive osseous abnormality. Other: No significant ventral or inguinal hernia. Anasarca. IMPRESSION: Diffuse small bowel mucosal hyperenhancement, concerning for CT hypoperfusion complex. Small volume ascites with peritoneal thickening, concerning for peritonitis. Developing abscesses not excluded given history. Third spacing of fluids with moderate pleural effusions, anasarca and ascites. Small volume free air, within normal limits given recent surgery. Agree with preliminary report. Reviewed by: Kali Guevara MD on 05/01/2025 8:11 AM PDT Approved by: Kali Guevara MD on 05/01/2025 8:11 AM PDT Station ID: [email or web address]
--- NOTE | 2025-05-01 08:21 | CT Report ---
PROCEDURE: CT Chest W INDICATIONS: post op laparatomy CONTRAST: Omni 300 100ml TECHNIQUE: After the administration of intravenous contrast, a CT scan of the chest was performed. Images were recorded and evaluated at appropriate window settings. Reformats: axial MIP of the chest, coronal and sagittal. For radiation dose reduction, the following was used: automated exposure control, adjustment of mA and/or kV according to patient size. COMPARISON: 04/30/2025 FINDINGS: Image quality: Diagnostic. Suboptimal due to motion artifact. Chest wall and lower neck: No thyroid nodule which requires sonographic follow up. No breast mass. No axillary or supraclavicular adenopathy by size. Lungs and pleura: Moderate pleural effusions, right greater than left. Mild smooth interstitial thickening. Bibasilar atelectasis. Very mild peripheral groundglass opacities are present. Mediastinum: Heart size is enlarged. No pericardial effusion. No large vessel abnormality. No mediastinal adenopathy by size criteria. Bones: No aggressive osseous abnormality. Upper Abdomen: Unremarkable. IMPRESSION: Suboptimal evaluation due to motion artifact. Moderate pleural effusions, right greater than left. Mild pulmonary edema. Very mild peripheral groundglass opacities are present, which could represent alveolar pulmonary edema versus atypical infection. Reviewed by: Kali Guevara MD on 05/01/2025 8:18 AM PDT Approved by: Kali Guevara MD on 05/01/2025 8:18 AM PDT Station ID: [id number]
[2025-05-01] MEDS: SODIUM CHLORIDE 0.9% 500 ML IV ONE (08:26)
--- NOTE | 2025-05-01 08:55 | PROVIDER PROGRESS NOTE ---
Subjective General Admit Date: 04/26/25 Procedure Date: 04/26/25 Post Op Days: 5 Procedure Performed: ExLap, Talha patch, Pyloric Exclusion, Gtube/Jtube Other Other Information/Narrative: POD5. Overnight patient was hypotensive. Telehealth was called by nursing, labs ordered, a CT CAP was ordered, as well as a central line, fluid bolus and levophed. Central line placed by ED doc. Surgery notified that labs were being drawn, but not of central line, pressors, CT orders. This AM patient had bled a significant volume from oozing at central line site (saturated at least two wash cloths or hand towels) and hgb down 2 points. Dressing removed and ongoing oozing from CVC skin site. Efforts to resuscitate patient as well as gain hemostasis at the CVC site continued throughout the day. I was at bedside at 830AM, noon, and 530pm. In total: Eliquis held. Got 2U PRBC and 1U FFP. PCC & TXA given. Albumin + lasix to work on volume status. Additional sutures at the skin site at 9am. PA student held direct pressure x3 hours, pressure bandages, topical hemostatic agents, and additional sutures placed at 530pm. CXR repeated late morning to ensure no rapidly accumulating hemothorax from central line - there was not. Lung sounds and volume status did improve throughout the day, with inclusion of lasix. She was lethargic throughout the day, but oriented x3. Had more pain than prior days, centered around all of the activity at her RIJ CVC site. Notable pallor that improved with the 2U of PRBC. Andrews replaced and made > 1L UOP. Overall abdominal status unchanged - no blood in DEMETRIA drains or g tube. RUQ DEMETRIA drain serous today, not gastric/bilious. Abdomen nondistended. Midline incision CDI. CT AP - the questionable RUQ abscess is the decompressed hepatic flexure, sitting behind the duodenum 2/2 intraoperative jennifer maneuver; the DEMETRIA drain would be collecting any leaked fluid in this area. Tube feeds reduced to 10cc/hr while on pressers, which were weaned throughout the day. Wound Assessment Wound/Incisions: positive Healing well (staple line CDI) Review of Systems Status of ROS: 10 or more systems reviewed and unremarkable except as noted in history and below Exam Exam Vital Signs: Vital Signs x48h Temp Pulse Pulse Resp BP BP BP 05/01/25 21:00 36.0 C L 61 14 102/58 L 05/01/25 20:35 36.0 C L 61 14 106/51 L 05/01/25 20:00 35.9 C L 60 13 106/56 L 05/01/25 19:32 35.6 C L 60 13 108/59 L 05/01/25 19:00 62 16 114/70 05/01/25 18:00 64 13 110/60 05/01/25 17:22 35.8 C L 60 18 109/53 L 05/01/25 17:07 60 104/71 05/01/25 17:00 60 24 104/71 05/01/25 16:56 36.1 C L 62 20 133/61 H 05/01/25 16:00 36.0 C L 60 18 122/67 05/01/25 15:06 35.8 C L 60 17 114/57 L 05/01/25 15:00 35.7 C L 60 16 114/57 L 05/01/25 14:00 60 12 92/59 L Pulse Ox 05/01/25 21:00 97 05/01/25 20:35 95 05/01/25 20:00 100 05/01/25 19:32 99 05/01/25 19:00 99 05/01/25 18:00 100 05/01/25 17:22 99 05/01/25 17:07 05/01/25 17:00 99 05/01/25 16:56 98 05/01/25 16:00 99 05/01/25 15:06 100 05/01/25 15:00 99 05/01/25 14:00 100 Constitutional abnormal general appearance, distress noted (moderate) and abnormal body habitus (thin) critically ill HENMT ongoing oozing from RIJ CVC Chest inspection of chest normal Respiratory breath sounds equal bilaterally and normal respiratory effort crackles Cardiovascular normal heart rate noted and regular rhythm noted (100% paced) Gastrointestinal abdomen soft to palpation (Diffusely firm/involuntary guarding), nontender to palpation and nondistended R & L DEMETRIA drain - light SSF G tube - scant gastric contents J tube - tube feeds going in staple line CDI Genitourinary andrews - light yellow clear urine Neurology GCS 15 Psychiatry oriented x3 Skin skin color abnormal (pale) ABX Reporting Has patient been on IV antibiotics over the past 48 hours?: Yes Impression/Plan Problem List (1) Fluid overload: Qualifiers: Hypervolemia type: unspecified Qualified Code(s): E87.70 - Fluid overload, unspecified (2) Shock: (3) Afib: Qualifiers: Atrial fibrillation type: unspecified Qualified Code(s): I48.91 - Unspecified atrial fibrillation Plan [id number] s/p 04/26/2025 emergent exploratory laparotomy for perforated pyloric ulcer, highly suspicious for malignancy due to history of weight loss and intra operative appearance. ExLap included biopsies of perforated ulcer/mass, talha patch of perforation, stapled pyloric exclusion, placement of venting gastrostomy tube and feeding jejunostomy tube. POD5 Significant efforts at managing volume overload in the setting of hemodynamically significant bleed from CVC site requiring blood products and pharmacologic + manual hemorrhoage control. - consider ECHO - Pain overall controlled, no changes (IV pushes and local anesthetic given with RIJ CVC mgmt today) - wean pressers as able, andrews replaced 05/01, albumin boluses with lasix PRN - Jejunostomy feeds reduced to 10cc/hr due to pressors, return to goal when pressors off. miralax (WELL DISSOLVED) in free water flushes. OK to have clear liquids for comfort sparingly, they will drain via Gastrostomy tube, which should remain to gravity drainage bag. OK for ducolax suppository. - Daily CBC/Chem - WBC downtrending and no fever/tachycardia/abdominal pain or distension, no sign of leak by DEMETRIA drain contents. Blood cx with no growth, abdominal cx with yeast growth only. Clinically no sign of intraabdominal leak or abscess. Consi eboni pulmonary source 2/2 effusions if developing sepsis. Continue vanc/zosyn/fluconazole today. Ideally stop vanc/zosyn after 4d, but would be nice to see WBC downtrending. Plan to continue Fluconazole for 7-14d. - continue DEMETRIA drains until consistently tolerating PO clears and J tube feeds with no leaks and clinical stability. - Eliquis held today, resume ppx lovenox when HD stable - continue working with PT/SW for dc planning. Will be J-tube dependent for tube feedings usp. - awaiting pathology to determine usp care goals Ro Odell DO, FACS General Surgeon, [place]
[2025-05-01] MEDS: ALBUMIN 25% 12.5 GM/50 ML VIAL IV STA (09:26)
[2025-05-01] MEDS: FUROSEMIDE 20 MG/2 ML VIAL IVP STA (09:26)
[2025-05-01] MEDS: HYDROmorphone 0.5 MG/0.5 ML SYRINGE IVP PRN (09:31)
[2025-05-01] MEDS: PROTHROMBIN COMPLEX CONCENTRATE IV STA (11:27)
[2025-05-01] MEDS: [UNRECOGNIZED DRUG - OTHER] IV STA (11:27)
[2025-05-01 11:28] LABS: HCT - HEMATOCRIT 22.3 % (37.0-47.0); MEAN PLATELET VOLUME 9.9 fL (7.9-10.8); PLT - PLATELET COUNT 151.0 10^3/uL (130-450); RED CELL DISTRIBUTION WIDTH 21.1 % (12.0-15.0)
[2025-05-01 11:30] LABS: HGB - HEMOGLOBIN 6.7 g/dL (12.0-16.0)
[2025-05-01 11:32] LABS: INR 1.5 (0.8-1.2); PT - PROTHROMBIN TIME 16.9 secs (9.9-12.6)
[2025-05-01 11:42] LABS: BUN - BLOOD UREA NITROGEN 37.0 mg/dL (6-20); CARBON DIOXIDE - CO2 23.0 mmol/L (21-32); CREATININE 0.9 mg/dL (0.6-1.3); GFR - MDRD 62.0 (>89)
--- NOTE | 2025-05-01 13:17 | XRAY Report ---
PROCEDURE: XR Chest 1V INDICATIONS: Dyspnea, difficulty breathing,VON per notes TECHNIQUE: One view of the chest was acquired. COMPARISON: Prior x-ray May 01, 2025 at 02:53 FINDINGS: Overall no significant change compared to the prior exam. Right jugular central venous catheter with distal tip at the level of the distal superior vena cava/right atrial junction unchanged. Moderately enlarged cardiopericardial silhouette unchanged. Moderate bibasilar consolidations commonly representing a combination of pleural effusion, atelectatic changes, pneumonia or other process unchanged. Moderately prominent salvador, pulmonary vascular congestion and/or hilar lymph nodes unchanged. Dual-lead pacemaker with left-sided battery pack unchanged. Moderate calcifications of the aortic arch unchanged. Various cardiac leads, tubes, lines and other extrinsic artifacts partially limit radiographic detail. IMPRESSION: No significant change as discussed above. Continued follow-up is needed. If symptoms persist or worsen, CT chest could be performed. Reviewed by: Mikael Fleming MD on 05/01/2025 1:13 PM PDT Approved by: Mkiael Fleming MD on 05/01/2025 1:13 PM PDT Station ID: [id number]
--- NOTE | 2025-05-01 13:24 | PROVIDER PROGRESS NOTE ---
Subjective Subjective Subjective: Patient is a 69-year-old female with a history of CVA with residual left-sided deficits, atrial fibrillation on Eliquis who presented for abdominal pain. CT abdomen/pelvis shows free air, likely related to a perforated ulcer. Taken emergently to the OR on 04/26 ex lap was completed with Talha patch repair of perforated gastric ulcer, gastrostomy tube placement, as well as jejunostomy tube placement. 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 Her postoperative course has been complicated by altered mental status, as well as shock requiring pressor support. Overnight, patient became hypotensive. Central line was placed, vasopressors were started. After this, central line site started to ooze. FFP was ordered. CT chest and abdomen/pelvis CT were also ordered. This morning, blood work was repeated. Hemoglobin was found to be 6.7. PCC was ordered, as well as 1 unit of packed red blood cells. Pressure was held on central line site. This morning, she is conversive. She states her abdominal pain is well controlled. She denies fevers, chills. She is very sleepy. Diet: Tube feeds- now trickle feeds Code: Full code - will continue discussions pending pathology on overall goals of care Dispo: SNF on discharge, choiced by AMANDA DVT: Currently held due to active bleeding Current Medications Current Medications Current Medications: Current Medications Generic Name Dose Route Start Last Admin Trade Name Freq PRN Reason Stop Dose Admin Bisacodyl 10 mg 04/29/25 10:32 Bisacodyl 10 Mg Supp TX DAILY PRN Constipation Hydromorphone HCl 0.5 mg 04/30/25 18:29 05/01/25 09:31 Hydromorphone 0.5 Mg/0.5 Ml Syringe IVP 0.5 mg Q6HR PRN Administration Severe Pain (Level 7-10) Piperacillin Sod/Tazobactam 100 mls @ 25 mls/hr 04/26/25 17:30 05/01/25 12:43 Sod 4.5 gm/ Sodium Chloride IV Infused Q8H CINDY Infusion Fluconazole 100 mls @ 100 mls/hr 04/26/25 18:00 04/30/25 18:58 Diflucan 200 Mg/100 Ml IV Infused Q24H CINDY Infusion Acetaminophen 1,000 mg in 100 mls @ 400 mls/hr 04/27/25 12:00 05/01/25 11:50 Acetaminophen IV Infused Q8H CINDY Infusion Vancomycin HCl 1 gm/ Sodium 250 mls @ 167 mls/hr 04/30/25 12:00 05/01/25 11:41 Chloride IV 167 mls/hr Q24H CINDY Administration Norepinephrine/Sodium Chloride 8 mg in 250 mls @ 15 mls/hr 05/01/25 01:00 05/01/25 02:37 Levophed 8 Mg/250-0.9% Nacl IV 8 mcg/min .[id number] CINDY 15 mls/hr Protocol Administration 8 MCG/MIN Levetiracetam 500 mg 04/30/25 21:00 05/01/25 08:26 Levetiracetam 500 Mg/5 Ml Udc PO 500 mg BID CINDY Administration Metoprolol Tartrate 2.5 mg 04/29/25 11:00 05/01/25 11:12 Metoprolol 5 Mg/5 Ml Vial IVP Not Given Q6HR CINDY Ondansetron HCl 4 mg 04/26/25 17:08 Ondansetron Odt 4 Mg Tablet TL Q6HR PRN Nausea / Vomiting Ondansetron HCl 4 mg 04/26/25 17:08 Ondansetron 4 Mg/2 Ml Vial IVP Q6HR PRN Nausea / Vomiting Pantoprazole Sodium 40 mg 04/26/25 21:00 05/01/25 08:27 Pantoprazole 40 Mg Vial IVP 40 mg BID CINDY Administration Polyethylene Glycol 17 gm 04/29/25 10:32 04/29/25 17:05 Polyethylene Glycol 3350 17 Gm Packet JT 17 gm DAILY PRN Administration Bowel Protocol Sodium Chloride 10 ml 04/26/25 17:08 05/01/25 08:27 Sodium Chloride Flush 0.9% 10 Ml Syringe IVP 10 ml 0100,0900,1700 CINDY Administration Sodium Chloride 10 ml 04/26/25 17:08 04/28/25 06:36 Sodium Chloride Flush 0.9% 10 Ml Syringe IVP 10 ml PRN PRN Administration NEEDED PER PROVIDER ORDERS Zinc Oxide 113 gm 04/27/25 04:26 04/27/25 04:42 Cod Liver Oil/Zinc Oxide 113 Gm Tube TOP 1 applic PRN PRN Administration Skin Care Objective Vital Signs/Intake & Output Reviewed Vital Signs: Yes Vital Signs: Vital Signs x48h Temp Pulse Pulse Resp BP BP BP 05/01/25 13:00 96.4 F L 60 12 105/62 05/01/25 12:53 96.4 F L 63 21 123/76 05/01/25 12:37 96.4 F L 61 12 103/56 L 05/01/25 12:00 96.4 F L 60 13 114/59 L 05/01/25 11:12 61 113/62 05/01/25 11:00 60 18 113/62 05/01/25 10:15 96.4 F L 64 14 115/56 L 05/01/25 10:00 96.4 F L 61 17 105/61 05/01/25 09:54 96.4 F L 62 12 107/63 05/01/25 09:00 60 17 110/64 05/01/25 08:00 96.9 F L 60 15 105/56 L 05/01/25 07:00 62 16 98/62 05/01/25 06:00 61 16 113/57 L 05/01/25 05:46 65 113/62 05/01/25 05:25 60 19 125/71 Pulse Ox 05/01/25 13:00 99 05/01/25 12:53 100 05/01/25 12:37 100 05/01/25 12:00 98 05/01/25 11:12 05/01/25 11:00 100 05/01/25 10:15 97 05/01/25 10:00 95 05/01/25 09:54 99 05/01/25 09:00 100 05/01/25 08:00 98 05/01/25 07:00 97 05/01/25 06:00 96 05/01/25 05:46 05/01/25 05:25 98 Intake & Output: Intake & Output 04/28/25 04/29/25 04/30/25 05/01/25 23:59 23:59 23:59 23:59 Intake Total 4181 / 4181 4562 / 4562 3484 / 3484 2745 / 2745 Output Total 1142 / 1142 1380 / 1380 1775 / 1775 935 / 935 Balance 3039 / 3039 3182 / 3182 1709 / 1709 1810 / 1810 Weight (kg) 40 kg 42.5 kg 42.5 kg 50 kg Objective General Appearance: positive No acute distress, Lethargic and Other (Frail and cachectic in appearance with some temporal lobe wasting noted.); negative Anxious Eyes Bilateral: positive Normal inspection, PERRL and EOMI ENT: positive ENT inspection nml, Pharynx nml and No signs of dehydration Neck: positive Nml inspection, Thyroid nml and No JVD Respiratory: positive Chest non-tender, No respiratory distress and Rales (Bibasilar crackles noted.); negative Wheezes or Rhonchi Cardiovascular: positive No murmur, No gallop and Irregularly irregular; negative Tachycardia or Systolic murmur Abdomen: positive Other (Midline incision. 2 DEMETRIA drains noted with serosanguineous drainage. G-tube, J-tube in place. No erythema, swelling, induration or fluctuance around site. ) Back: positive Nml inspection; negative CVA tenderness (R) or CVA tenderness (L) Skin: positive Color nml, No rash, Warm and Dry Extremities: positive Non-tender, Nml appearance and Pedal edema; negative Full ROM (Mild weakness of LLE and LUE to flexion and extension. No sensory deficits noted. ) Neurologic/Psychiatric: positive Mood/affect nml, Disoriented to place, Weakness, Slurred/abnml speech and Other (Slight facial droop, slight verbal apraxia, left side weakness from previous stroke, and slight contraction at elbow, wrist, hip and knee.) Lab Results 05/01/25 11:15 05/01/25 11:15 Other Labs: Lab Results x24hrs 05/01/25 05/01/25 05/01/25 Range/Units 11:15 08:24 06:30 WBC 12.2 H (4.8-10.8) x10^3/uL RBC 2.61 L (4.20-5.40) 10^6/uL Hgb 6.7 L* (12.0-16.0) g/dL Hct 22.3 L (37.0-47.0) % MCV 85.4 (81.0-99.0) fL MCH 25.7 L (27.0-31.0) pg MCHC 30.0 L (32.0-36.0) g/dL RDW 21.1 H (12.0-15.0) % Plt Count 151 (130-450) 10^3/uL MPV 9.9 (7.9-10.8) fL Neut # (Auto) (1.5-6.6) 10^3/uL Lymph # (Auto) (1.5-3.5) 10^3/uL Blaine # (Auto) (0.0-1.0) 10^3/uL Eos # (Auto) (0.0-0.7) 10^3/uL Baso # (Auto) (0.0-0.1) 10^3/uL Absolute Nucleated RBC x10^3/uL Total Counted Band Neuts % (Manual) Abnorm Lymph % (Manual) Nucleated RBC % /100WBC Neutrophils # (Manual) Lymphocytes # (Manual) Monocytes # (Manual) Eosinophils # (Manual) Basophils # (Manual) Nucleated RBCs % Differential Comment Manual Slide Review WBC Morphology (NORMAL) Platelet Estimate (NORMAL) Platelet Morphology (NORMAL) RBC Morph Micro Appear 1+ SCHISTOCYTES (NORMAL) PT 16.9 H (9.9-12.6) secs INR 1.5 H (0.8-1.2) APTT 38.6 H (24.9-33.3) secs D-Dimer > 1050.0 H (200.0-255.0) ng/mL VBG pH (7.31-7.41) VBG pCO2 (41-51) mmHg VBG pO2 (25-47) mmHg VBG HCO3 (23-28) mmol/L VBG Total CO2 (24-29) mmol/L VBG O2 Saturation (60-80) % VBG Base Excess (-2 - +2) mmol/L Ionized Calcium (1.09-1.30) mmol/L Sodium 136 (135-145) mmol/L Potassium 4.5 (3.5-4.5) mmol/L Chloride 108 (101-111) mmol/L Carbon Dioxide 23 (21-32) mmol/L Anion Gap 5.0 L (6-13) BUN 37 H (6-20) mg/dL Creatinine 0.9 (0.6-1.3) mg/dL Estimated GFR (MDRD) 62 L (>89) Glucose 136 H (74-104) mg/dL Lactic Acid (0.5-2.2) mmol/L Calcium 7.2 L (8.5-10.3) mg/dL Phosphorus (2.5-5.0) mg/dL Magnesium (1.7-2.3) mg/dL Total Bilirubin (0.2-1.0) mg/dL AST (10-42) IU/L ALT (10-60) IU/L Alkaline Phosphatase (42-121) IU/L B-Natriuretic Peptide (5-100) pg/mL Total Protein (6.4-8.9) g/dL Albumin (3.2-5.5) g/dL Globulin (2.1-4.2) g/dL Albumin/Globulin Ratio (1.0-2.2) Blood Type O POSITIVE Antibody Screen NEGATIVE Crossmatch IS Only See Detail 05/01/25 05/01/25 05/01/25 Range/Units 06:30 06:30 05:53 WBC 13.8 H (4.8-10.8) x10^3/uL RBC 3.03 L (4.20-5.40) 10^6/uL Hgb 7.8 L (12.0-16.0) g/dL Hct 25.9 L (37.0-47.0) % MCV 85.5 (81.0-99.0) fL MCH 25.7 L (27.0-31.0) pg MCHC 30.1 L (32.0-36.0) g/dL RDW 20.7 H (12.0-15.0) % Plt Count 172 (130-450) 10^3/uL MPV 10.1 (7.9-10.8) fL Neut # (Auto) Not Reportable (1.5-6.6) 10^3/uL Lymph # (Auto) Not Reportable (1.5-3.5) 10^3/uL Blaine # (Auto) Not Reportable (0.0-1.0) 10^3/uL Eos # (Auto) Not Reportable (0.0-0.7) 10^3/uL Baso # (Auto) Not Reportable (0.0-0.1) 10^3/uL Absolute Nucleated RBC Not Reportable x10^3/uL Total Counted 100 Band Neuts % (Manual) 7 Abnorm Lymph % (Manual) 0 Nucleated RBC % Not Reportable /100WBC Neutrophils # (Manual) 13.1 H Lymphocytes # (Manual) 0.3 L Monocytes # (Manual) 0.4 Eosinophils # (Manual) 0.0 Basophils # (Manual) 0.0 Nucleated RBCs 1 % Differential Comment MANUAL DIFFERENTIAL Manual Slide Review WBC Morphology (NORMAL) Platelet Estimate (NORMAL) Platelet Morphology (NORMAL) RBC Morph Micro Appear 1+ ACANTHOCYTES 4+ ANISOCYTOSIS 1+ SCHISTOCYTES (NORMAL) PT (9.9-12.6) secs INR (0.8-1.2) APTT (24.9-33.3) secs D-Dimer (200.0-255.0) ng/mL VBG pH 7.402 (7.31-7.41) VBG pCO2 (41-51) mmHg VBG pO2 (25-47) mmHg VBG HCO3 (23-28) mmol/L VBG Total CO2 (24-29) mmol/L VBG O2 Saturation (60-80) % VBG Base Excess (-2 - +2) mmol/L Ionized Calcium 1.12 (1.09-1.30) mmol/L Sodium 135 (135-145) mmol/L Potassium 4.5 (3.5-4.5) mmol/L Chloride 108 (101-111) mmol/L Carbon Dioxide 22 (21-32) mmol/L Anion Gap 5.0 L (6-13) BUN 38 H (6-20) mg/dL Creatinine 0.8 (0.6-1.3) mg/dL Estimated GFR (MDRD) 72 L (>89) Glucose 104 (74-104) mg/dL Lactic Acid (0.5-2.2) mmol/L Calcium 6.8 L (8.5-10.3) mg/dL Phosphorus 3.7 (2.5-5.0) mg/dL Magnesium 1.8 (1.7-2.3) mg/dL Total Bilirubin (0.2-1.0) mg/dL AST (10-42) IU/L ALT (10-60) IU/L Alkaline Phosphatase (42-121) IU/L B-Natriuretic Peptide (5-100) pg/mL Total Protein (6.4-8.9) g/dL Albumin (3.2-5.5) g/dL Globulin (2.1-4.2) g/dL Albumin/Globulin Ratio (1.0-2.2) Blood Type Antibody Screen Crossmatch IS Only 05/01/25 05/01/25 05/01/25 Range/Units 05:53 05:53 05:53 WBC (4.8-10.8) x10^3/uL RBC (4.20-5.40) 10^6/uL Hgb (12.0-16.0) g/dL Hct (37.0-47.0) % MCV (81.0-99.0) fL MCH (27.0-31.0) pg MCHC (32.0-36.0) g/dL RDW (12.0-15.0) % Plt Count (130-450) 10^3/uL MPV (7.9-10.8) fL Neut # (Auto) (1.5-6.6) 10^3/uL Lymph # (Auto) (1.5-3.5) 10^3/uL Blaine # (Auto) (0.0-1.0) 10^3/uL Eos # (Auto) (0.0-0.7) 10^3/uL Baso # (Auto) (0.0-0.1) 10^3/uL Absolute Nucleated RBC x10^3/uL Total Counted Band Neuts % (Manual) Abnorm Lymph % (Manual) Nucleated RBC % /100WBC Neutrophils # (Manual) Lymphocytes # (Manual) Monocytes # (Manual) Eosinophils # (Manual) Basophils # (Manual) Nucleated RBCs % Differential Comment Manual Slide Review WBC Morphology (NORMAL) Platelet Estimate (NORMAL) Platelet Morphology (NORMAL) RBC Morph Micro Appear 1+ HYPOCHROMASIA 1+ PERICO CELLS 1+ OVALOCYTES (NORMAL) PT (9.9-12.6) secs INR (0.8-1.2) APTT (24.9-33.3) secs D-Dimer (200.0-255.0) ng/mL VBG pH (7.31-7.41) VBG pCO2 (41-51) mmHg VBG pO2 (25-47) mmHg VBG HCO3 (23-28) mmol/L VBG Total CO2 (24-29) mmol/L VBG O2 Saturation (60-80) % VBG Base Excess (-2 - +2) mmol/L Ionized Calcium (1.09-1.30) mmol/L Sodium (135-145) mmol/L Potassium (3.5-4.5) mmol/L Chloride (101-111) mmol/L Carbon Dioxide (21-32) mmol/L Anion Gap (6-13) BUN (6-20) mg/dL Creatinine (0.6-1.3) mg/dL Estimated GFR (MDRD) (>89) Glucose (74-104) mg/dL Lactic Acid (0.5-2.2) mmol/L Calcium (8.5-10.3) mg/dL Phosphorus (2.5-5.0) mg/dL Magnesium (1.7-2.3) mg/dL Total Bilirubin (0.2-1.0) mg/dL AST (10-42) IU/L ALT (10-60) IU/L Alkaline Phosphatase (42-121) IU/L B-Natriuretic Peptide (5-100) pg/mL Total Protein (6.4-8.9) g/dL Albumin (3.2-5.5) g/dL Globulin (2.1-4.2) g/dL Albumin/Globulin Ratio (1.0-2.2) Blood Type Antibody Screen Crossmatch IS Only 05/01/25 05/01/25 04/30/25 Range/Units 05:53 05:53 23:40 WBC 13.3 H (4.8-10.8) x10^3/uL RBC 3.10 L (4.20-5.40) 10^6/uL Hgb 8.0 L (12.0-16.0) g/dL Hct 26.3 L (37.0-47.0) % MCV 84.8 (81.0-99.0) fL MCH 25.8 L (27.0-31.0) pg MCHC 30.4 L (32.0-36.0) g/dL RDW 20.8 H (12.0-15.0) % Plt Count 163 (130-450) 10^3/uL MPV 9.0 (7.9-10.8) fL Neut # (Auto) Not Reportable (1.5-6.6) 10^3/uL Lymph # (Auto) Not Reportable (1.5-3.5) 10^3/uL Blaine # (Auto) Not Reportable (0.0-1.0) 10^3/uL Eos # (Auto) Not Reportable (0.0-0.7) 10^3/uL Baso # (Auto) Not Reportable (0.0-0.1) 10^3/uL Absolute Nucleated RBC Not Reportable x10^3/uL Total Counted 100 Band Neuts % (Manual) 0 Abnorm Lymph % (Manual) 0 Nucleated RBC % Not Reportable /100WBC Neutrophils # (Manual) 11.8 H Lymphocytes # (Manual) 0.5 L Monocytes # (Manual) 0.4 Eosinophils # (Manual) 0.5 Basophils # (Manual) 0.0 Nucleated RBCs % Differential Comment MANUAL DIFFERENTIAL Manual Slide Review Indicated WBC Morphology NORMAL APPEARANCE (NORMAL) Platelet Estimate NORMAL (130-450,000) (NORMAL) Platelet Morphology NORMAL APPEARANCE (NORMAL) RBC Morph Micro Appear 2+ ACANTHOCYTES 2+ ANISOCYTOSIS (NORMAL) PT (9.9-12.6) secs INR (0.8-1.2) APTT (24.9-33.3) secs D-Dimer (200.0-255.0) ng/mL VBG pH 7.399 (7.31-7.41) VBG pCO2 35.6 L (41-51) mmHg VBG pO2 56.8 H (25-47) mmHg VBG HCO3 22.2 L (23-28) mmol/L VBG Total CO2 23.3 L (24-29) mmol/L VBG O2 Saturation 89.0 H (60-80) % VBG Base Excess -2.8 L (-2 - +2) mmol/L Ionized Calcium (1.09-1.30) mmol/L Sodium (135-145) mmol/L Potassium (3.5-4.5) mmol/L Chloride (101-111) mmol/L Carbon Dioxide (21-32) mmol/L Anion Gap (6-13) BUN (6-20) mg/dL Creatinine (0.6-1.3) mg/dL Estimated GFR (MDRD) (>89) Glucose (74-104) mg/dL Lactic Acid 2.4 H (0.5-2.2) mmol/L Calcium (8.5-10.3) mg/dL Phosphorus (2.5-5.0) mg/dL Magnesium (1.7-2.3) mg/dL Total Bilirubin (0.2-1.0) mg/dL AST (10-42) IU/L ALT (10-60) IU/L Alkaline Phosphatase (42-121) IU/L B-Natriuretic Peptide (5-100) pg/mL Total Protein (6.4-8.9) g/dL Albumin (3.2-5.5) g/dL Globulin (2.1-4.2) g/dL Albumin/Globulin Ratio (1.0-2.2) Blood Type Antibody Screen Crossmatch IS Only 04/30/25 04/30/25 04/30/25 Range/Units 22:47 22:47 22:47 WBC 11.3 H (4.8-10.8) x10^3/uL RBC 3.32 L (4.20-5.40) 10^6/uL Hgb 8.7 L (12.0-16.0) g/dL Hct 28.9 L (37.0-47.0) % MCV 87.0 (81.0-99.0) fL MCH 26.2 L (27.0-31.0) pg MCHC 30.1 L (32.0-36.0) g/dL RDW 20.5 H (12.0-15.0) % Plt Count 152 (130-450) 10^3/uL MPV 10.3 (7.9-10.8) fL Neut # (Auto) 10.1 H (1.5-6.6) 10^3/uL Lymph # (Auto) 0.5 L (1.5-3.5) 10^3/uL Blaine # (Auto) 0.4 (0.0-1.0) 10^3/uL Eos # (Auto) 0.1 (0.0-0.7) 10^3/uL Baso # (Auto) 0.0 (0.0-0.1) 10^3/uL Absolute Nucleated RBC 0.03 x10^3/uL Total Counted Band Neuts % (Manual) Not Reportable Abnorm Lymph % (Manual) Not Reportable Nucleated RBC % 0.3 /100WBC Neutrophils # (Manual) Not Reportable Lymphocytes # (Manual) Not Reportable Monocytes # (Manual) Not Reportable Eosinophils # (Manual) Not Reportable Basophils # (Manual) Not Reportable Nucleated RBCs % Differential Comment MANUAL=AUTO DIFF Manual Slide Review Indicated WBC Morphology (NORMAL) Platelet Estimate NORMAL (130-450,000) (NORMAL) Platelet Morphology NORMAL APPEARANCE (NORMAL) RBC Morph Micro Appear 2+ HYPOCHROMASIA 3+ ACANTHOCYTES 2+ ANISOCYTOSIS (NORMAL) PT 21.5 H (9.9-12.6) secs INR 2.0 H (0.8-1.2) APTT (24.9-33.3) secs D-Dimer (200.0-255.0) ng/mL VBG pH (7.31-7.41) VBG pCO2 (41-51) mmHg VBG pO2 (25-47) mmHg VBG HCO3 (23-28) mmol/L VBG Total CO2 (24-29) mmol/L VBG O2 Saturation (60-80) % VBG Base Excess (-2 - +2) mmol/L Ionized Calcium (1.09-1.30) mmol/L Sodium 132 L (135-145) mmol/L Potassium 4.8 H (3.5-4.5) mmol/L Chloride 105 (101-111) mmol/L Carbon Dioxide 21 (21-32) mmol/L Anion Gap 6.0 (6-13) BUN 38 H (6-20) mg/dL Creatinine 0.8 (0.6-1.3) mg/dL Estimated GFR (MDRD) 72 L (>89) Glucose 117 H (74-104) mg/dL Lactic Acid (0.5-2.2) mmol/L Calcium 6.7 L (8.5-10.3) mg/dL Phosphorus (2.5-5.0) mg/dL Magnesium (1.7-2.3) mg/dL Total Bilirubin 0.9 (0.2-1.0) mg/dL AST 31 (10-42) IU/L ALT 16 (10-60) IU/L Alkaline Phosphatase 111 (42-121) IU/L B-Natriuretic Peptide 651 H (5-100) pg/mL Total Protein 3.9 L (6.4-8.9) g/dL Albumin 1.9 L (3.2-5.5) g/dL Globulin 2.0 L (2.1-4.2) g/dL Albumin/Globulin Ratio 1.0 (1.0-2.2) Blood Type Antibody Screen Crossmatch IS Only Assessment/Plan Problem List (1) Shock: Impression: Overnight, patient became hypotensive again. Central line was placed, and she was started on Levophed. Her Eliquis was restarted yesterday, received one dose; now held. Her hemoglobin has dropped from 10.8 yesterday to 6.7. She continues to ooze from her central line site. Pressure is being held. Overnight, FFP was ordered. She received PCC this morning, as well as 1 unit packed red blood cells. PT, PTT, INR were elevated. D-dimer is also elevated. Platelets are within normal limits. Consideration made for DIC. Continue to work on correcting underlying cause. MAP goal greater than 65. Continue to follow strict ins and outs, urine output. Gordon cathether was placed again. According to her weight, she should be making about 20 to 40 cc of urine per hour. (2) Acute metabolic encephalopathy: Impression: Resolving. On 04/30, patient became increasingly anxious and agitated. Prior to this, IV Ativan as needed was ordered, and patient received 2 doses of [address]. Stat CT head was done, and code stroke was called. CT head shows a large old infarction right MCA distribution with extensive encephalomalacia. CTA did not show any large vessel occlusion. I did speak with Dr. Delvalle, teleneurologist. She recommended starting Keppra, loading with 1 g daily, as well as continuing 500 mg twice daily after this due to this large volume stroke in the past, and high chance of seizure activity with that. She did recommend considering EEG if patient is persistently encephalopathic. (3) Perforated abdominal viscus: Impression: Patient presented with acute on chronic abdominal pain. CT abdomen/pelvis showed free air, likely related to a perforated ulcer. Taken emergently to the OR on 04/26ex lap was completed with Talha patch repair of perforated gastric ulcer, gastrostomy tube placement, as well as jejunostomy tube placement. 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 Patient now receiving tube feeds; decreased to trickle feeds as pressors have been restarted. IV vancomycin, Zosyn, and fluconazole ordered due to perforation. Leukocytosis improving. With clinical change, this will be continued. Today is day 5. In OR, free fluid was sent for cultures, growing yeast. Blood cultures drawn 04/27 with no growth to date. (4) Fluid overload: Impression: Patient with some crackles noted in bibasilar bases, chest x-ray with interstitial edema, pleural effusions. CT with same. One-time IV Lasix given 04/30, and 05/01. Continued. IV albumin given as well. IV fluids stopped. ECHO ordered, pending. Qualifiers: Hypervolemia type: unspecified Qualified Code(s): E87.70 - Fluid overload, unspecified (5) Cerebrovascular accident (CVA): Impression: Remains with left-sided deficits, LUE contracture. Not on aspirin or statin. Qualifiers: CVA mechanism: thrombosis Laterality of affected vessel: right P recerebral and cerebral artery: middle cerebral artery Qualified Code(s): I 63.311 - Cerebral infarction due to thrombosis of right middle cerebral artery (6) HTN (hypertension): Impression: History of hypertension. Takes metoprolol for this as well as for atrial fibrillation. IV metoprolol started with hold parameters in place. Qualifiers: Hypertension type: unspecified Qualified Code(s): I10 - Essential (primary) hypertension (7) Diabetes mellitus: Impression: A1c of 5.1%. Monitor off sliding scale insulin at this time. 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 On Eliquis and metoprolol. Hold Eliquis at this time due to above. Qualifiers: Atrial fibrillation type: unspecified Qualified Code(s): I48.91 - Unspecified atrial fibrillation (9) History of pacemaker: Impression: Currently in paced rhythm.
[2025-05-01 16:01] LABS: HCT - HEMATOCRIT 25.5 % (37.0-47.0); HGB - HEMOGLOBIN 7.9 g/dL (12.0-16.0)
--- NOTE | 2025-05-01 17:23 | ECHO Report ---
Version: 1 Study ID: [id number] Adult Echocardiogram Report Name: KELLIE DAIGLE Study Date: 05/01/2025, 10: 53 AM BP: 115 / 56 mmHg Patient Location: ICU^[facility] [place]^01 HR: 60 bpm : 1955 (MM/DD/YYYY) Gender: Female Height: 58 in Age: 69 Years Weight: 110 lb BSA: 1.41 m² Reason For Study: pleural effusions History: Pacemaker Interpretation Summary Global left ventricular systolic function is mildly decreased. The visual left ventricular ejection fraction is estimated at 45 to 50%. A pacer/defibrillator lead is present in the right heart. Severe tricuspid regurgitation present. There is mild mitral regurgitation. Mild phtn. The right ventricular systolic pressure is 37mmHg Left Ventricle: The left ventricle is normal in size. There is normal left ventricular wall thickness. No thrombus seen in the left ventricle. The visual left ventricular ejection fraction is estimated at 45 to 50%. Global left ventricular systolic function is mildly decreased. Right Ventricle: The right ventricle is normal size. A pacer/defibrillator lead is present in the right heart. Aortic Valve: The aortic valve is normal in structure and function. The aortic valve is trileaflet. No hemodynamically significant valvular aortic stenosis. Trace aortic regurgitation is present. Mitral Valve: The mitral valve leaflets are mildly thickened. No evidence of mitral stenosis is seen. There is mild mitral regurgitation. Tricuspid Valve: The tricuspid valve is structurally normal. There is no tricuspid stenosis. Severe tricuspid regurgitation present. Pulmonic Valve: The pulmonic valve is normal in structure and function. There is no pulmonic valvular stenosis. Mild pulmonic valvular regurgitation is present. Left Atrium: The left atrium is moderately to severely dilated. Right Atrium: The right atrium is severely dilated. Atrial Septum: The interatrial septum appears normal, without evidence of shunt by 2D imaging and color Doppler. Aorta: The ascending aorta is normal in size. The transverse arch is normal in size. The sinuses of Valsalva are normal in size. Pulmonary Artery: The pulmonary artery is normal size. The pulmonary artery systolic pressure is normal. Inferior vena cava dynamics indicate normal right atrial pressures. The right ventricular systolic pressure is 37mmHg. Pericardium/Pleural Space: There is no pericardial effusion. A left pleural effusion is present. Left Ventricle IVSd: 0.76 cm LVIDd: 4.6 cm LVPWd: 0.76 cm LVIDs: 3.4 cm ESV(sp4-el): 63.2 ml Atria LA dimension: 5.8 cm LAV(MOD-sp4): 82.2 ml LAV(MOD-sp2): 78.3 ml Aortic Valve LVOT diam: 1.88 cm LV V1 mean P.26 mmHg LV V1 mean: 47.5 cm/sec LV V1 VTI: 13.5 cm Ao V2 VTI: 25.8 cm Ao mean P.2 mmHg Ao V2 mean: 92.9 cm/sec LV V1 max: 89.3 cm/sec LV V1 max P.2 mmHg Ao max P.2 mmHg Ao V2 max: 151.5 cm/sec Mitral Valve MV max P.7 mmHg MV V2 max: 108.4 cm/sec MV mean P.65 mmHg MV V2 mean: 56.7 cm/sec MV V2 VTI: 31.4 cm Tricuspid Valve TR max P.2 mmHg TR max savanah: 292.3 cm/sec TV max P.2 mmHg Aorta Ao root diam: 2.5 cm MMode/2D Measurements & Calculations Ao root diam: 2.5 cm BMI: 23.0 kilograms/m² BSA([facility]): 1.44 m² ESV(sp4-el): 63.2 ml IVSd: 0.76 cm LA A4C-A/L: 19.8 cm² LA dimension: 5.8 cm LA ESV-A/L: 54.2 ml LA Vol Index: 26.5 ml/m² LAV(MOD-sp2): 78.3 ml LAV(MOD-sp4): 82.2 ml LVIDd: 4.6 cm LVIDs: 3.4 cm LVOT diam: 1.88 cm LVPWd: 0.76 cm RA A4Cs: 23.6 cm² Doppler Measurements & Calculations Ao max P.2 mmHg Ao mean P.2 mmHg Ao V2 max: 151.5 cm/sec Ao V2 mean: 92.9 cm/sec Ao V2 VTI: 25.8 cm LV V1 max: 89.3 cm/sec LV V1 max P.2 mmHg LV V1 mean: 47.5 cm/sec LV V1 mean P.26 mmHg LV V1 VTI: 13.5 cm MV max P.7 mmHg MV mean P.65 mmHg MV V2 max: 108.4 cm/sec MV V2 mean: 56.7 cm/sec MV V2 VTI: 31.4 cm PA max P.3 mmHg PA V2 max: 103.1 cm/sec TR max P.2 mmHg TR max savanah: 292.3 cm/sec TV max P.2 mmHg Other Measurements & Calculations Ao root area: 5.0 cm² NORM(I,D): 1.45 cm² NORM(V,D): 1.64 cm² EDV(Teich): 96.2 ml EF(sp-el): 50.0 % EF(Teich): 49.5 % ESV(Teich): 48.5 ml FS: 25.0 % LVOT area: 2.8 cm² MVA(VTI): 1.19 cm² SV(LVOT): 37.4 ml MD Claudia Nevarez 05/01/2025, 5: 23 PM Ordering Physician: Kimberly Flores Referring Physician: Padmini Talamantes Performed By: TERRENCE
[2025-05-01] MEDS: LIDOCAINE 2%-EPI 1:100000 20 ML MDV SUBQ ONE (18:15)
[2025-05-02 05:50] LABS: HCT - HEMATOCRIT 29.8 % (37.0-47.0); HGB - HEMOGLOBIN 9.7 g/dL (12.0-16.0); MEAN PLATELET VOLUME 10.6 fL (7.9-10.8); PLT - PLATELET COUNT 153.0 10^3/uL (130-450); RED CELL DISTRIBUTION WIDTH 18.7 % (12.0-15.0)
[2025-05-02 05:58] LABS: VBG PH 7.410 (7.31-7.41)
[2025-05-02 06:03] LABS: INR 1.1 (0.8-1.2); PT - PROTHROMBIN TIME 12.0 secs (9.9-12.6)
[2025-05-02 06:08] LABS: BUN - BLOOD UREA NITROGEN 36.0 mg/dL (6-20); CARBON DIOXIDE - CO2 22.0 mmol/L (21-32); CREATININE 0.9 mg/dL (0.6-1.3); GFR - MDRD 62.0 (>89); PHOSPHORUS 4.4 mg/dL (2.5-5.0)
[2025-05-02 11:13] LABS: PATHOLOGIST SLIDE COMMENTS SEE SEPARATE REPORT
--- NOTE | 2025-05-02 14:48 | PROVIDER PROGRESS NOTE ---
Subjective Prog Note Date Prog Note Date: 05/02/25 Prog Note Time: 14:46 Subjective Subjective: This is a very pleasant 69-year-old female with past medical history of CVA with persistent left-sided deficits, A-fib on Eliquis presenting initially for abdominal pain. She was found to have perforated viscus with pyloric ulcer s/p pyloric occlusion. Her postoperative course was complicated by encephalopathy and hypovolemic shock. She did not require any further blood products last night. Hemostasis was able to be achieved after extensive efforts by her surgery and medicine team yesterday. She is having weaning pressor requirements as of this morning. Tube feeds have continued on trickle feeds with her pressors. TTE was completed yesterday reveals mildly reduced ejection fraction of 45 to 50%. Pacer leads present to right heart. Severe tricuspid regurgitation, and mild mitral regurgitation. RVSP 37 mmHg. Current Medications Current Medications Current Medications: Current Medications Generic Name Dose Route Start Last Admin Trade Name Freq PRN Reason Stop Dose Admin Bisacodyl 10 mg 04/29/25 10:32 Bisacodyl 10 Mg Supp [place] DAILY PRN Constipation Hydromorphone HCl 0.5 mg 04/30/25 18:29 05/01/25 17:08 Hydromorphone 0.5 Mg/0.5 Ml Syringe IVP 0.5 mg Q6HR PRN Administration Severe Pain (Level 7-10) Piperacillin Sod/Tazobactam 100 mls @ 25 mls/hr 04/26/25 17:30 05/02/25 12:33 Sod 4.5 gm/ Sodium Chloride IV Infused Q8H CINDY Infusion Fluconazole 100 mls @ 100 mls/hr 04/26/25 18:00 05/01/25 18:05 Diflucan 200 Mg/100 Ml IV Infused Q24H CINDY Infusion Acetaminophen 1,000 mg in 100 mls @ 400 mls/hr 04/27/25 12:00 05/02/25 11:56 Acetaminophen IV Infused Q8H CINDY Infusion Vancomycin HCl 1 gm/ Sodium 250 mls @ 167 mls/hr 04/30/25 12:00 05/02/25 13:37 Chloride IV Infused Q24H CINDY Infusion Norepinephrine/Sodium Chloride 8 mg in 250 mls @ 15 mls/hr 05/01/25 01:00 05/02/25 13:06 Levophed 8 Mg/250-0.9% Nacl IV 0 mcg/min .[id number] CINDY 0 mls/hr Protocol Titration 8 MCG/MIN Levetiracetam 500 mg 04/30/25 21:00 05/02/25 08:32 Levetiracetam 500 Mg/5 Ml Udc PO 500 mg BID CINDY Administration Metoprolol Tartrate 2.5 mg 04/29/25 11:00 05/02/25 11:37 Metoprolol 5 Mg/5 Ml Vial IVP Not Given Q6HR CINDY Ondansetron HCl 4 mg 04/26/25 17:08 Ondansetron Odt 4 Mg Tablet TL Q6HR PRN Nausea / Vomiting Ondansetron HCl 4 mg 04/26/25 17:08 Ondansetron 4 Mg/2 Ml Vial IVP Q6HR PRN Nausea / Vomiting Pantoprazole Sodium 40 mg 04/26/25 21:00 05/02/25 08:32 Pantoprazole 40 Mg Vial IVP 40 mg BID CINDY Administration Polyethylene Glycol 17 gm 04/29/25 10:32 04/29/25 17:05 Polyethylene Glycol 3350 17 Gm Packet JT 17 gm DAILY PRN Administration Bowel Protocol Sodium Chloride 10 ml 04/26/25 17:08 05/02/25 08:32 Sodium Chloride Flush 0.9% 10 Ml Syringe IVP 10 ml 0100,0900,1700 CINDY Administration Sodium Chloride 10 ml 04/26/25 17:08 04/28/25 06:36 Sodium Chloride Flush 0.9% 10 Ml Syringe IVP 10 ml PRN PRN Administration NEEDED PER PROVIDER ORDERS Zinc Oxide 113 gm 04/27/25 04:26 04/27/25 04:42 Cod Liver Oil/Zinc Oxide 113 Gm Tube TOP 1 applic PRN PRN Administration Skin Care Objective Vital Signs/Intake & Output Reviewed Vital Signs: Yes Vital Signs: Vital Signs x48h Temp Pulse Pulse Resp BP BP Pulse Ox 05/02/25 14:00 36.0 C L 60 24 110/62 98 05/02/25 13:00 60 19 114/56 L 98 05/02/25 12:00 36.2 C L 63 16 99/55 L 97 05/02/25 11:37 63 96/59 L 05/02/25 11:00 60 16 116/60 99 05/02/25 10:00 61 14 100/54 L 99 05/02/25 09:30 113/74 05/02/25 09:00 36.3 C L 60 22 128/56 L 97 05/02/25 08:45 115/66 05/02/25 08:00 36.3 C L 60 15 121/62 99 05/02/25 07:45 122/58 L 05/02/25 07:00 36.3 C L 61 23 115/59 L 98 Intake & Output: Intake & Output 04/29/25 04/30/25 05/01/25 05/02/25 23:59 23:59 23:59 23:59 Intake Total 4562 / 4562 3484 / 3484 4114 / 4114 793 / 793 Output Total 1380 / 1380 1775 / 1775 1880 / 1880 772 / 772 Balance 3182 / 3182 1709 / 1709 2234 / 2234 Weight (kg) 42.5 kg 42.5 kg 50 kg 50 kg Objective Comments/Other: GEN: No acute distress. Somnolent HEENT: NC/AT, normal appearance of external ears and nose. Hearing baseline. Cardiac: Irregular rhythm, rate controlled. No JVD. Euvolemic. Pulm: Lungs CTA bilaterally, no cough, no wheezes. No rales appreciated. Abdomen: Soft, nontender, nondistended. DEMETRIA drains with serosanguineous drainage. G-tube and J-tube in place without surrounding erythema. Extremities: Chronic left-sided deficits, and left upper extremity contracture. Neuro: Face symmetric, CN II through XII intact grossly. Chronic and stable left-sided deficits. Psych: Mood euthymic. Affect normal. Lab Results 05/02/25 04:55 05/02/25 04:55 Other Labs: Lab Results x24hrs 05/02/25 05/02/25 05/01/25 Range/Units 12:00 04:55 15:46 WBC 11.7 H (4.8-10.8) x10^3/uL RBC 3.59 L (4.20-5.40) 10^6/uL Hgb 9.7 L 7.9 L (12.0-16.0) g/dL Hct 29.8 L 25.5 L (37.0-47.0) % MCV 83.0 (81.0-99.0) fL MCH 27.0 (27.0-31.0) pg MCHC 32.6 (32.0-36.0) g/dL RDW 18.7 H (12.0-15.0) % Plt Count 153 (130-450) 10^3/uL MPV 10.6 (7.9-10.8) fL Smear Path Review PT 12.0 (9.9-12.6) secs INR 1.1 (0.8-1.2) APTT 30.0 (24.9-33.3) secs VBG pH 7.410 (7.31-7.41) Ionized Calcium 1.12 (1.09-1.30) mmol/L Sodium 136 (135-145) mmol/L Potassium 4.5 (3.5-4.5) mmol/L Chloride 108 (101-111) mmol/L Carbon Dioxide 22 (21-32) mmol/L Anion Gap 6.0 (6-13) BUN 36 H (6-20) mg/dL Creatinine 0.9 (0.6-1.3) mg/dL Estimated GFR (MDRD) 62 L (>89) Glucose 90 (74-104) mg/dL Calcium 7.2 L (8.5-10.3) mg/dL Phosphorus 4.4 (2.5-5.0) mg/dL Magnesium 2.5 H (1.7-2.3) mg/dL Carcinoembryonic Ag 1.0 ng/mL Blood Type Antibody Screen Crossmatch IS Only 05/01/25 04/30/25 Range/Units 06:30 08:58 WBC (4.8-10.8) x10^3/uL RBC (4.20-5.40) 10^6/uL Hgb (12.0-16.0) g/dL Hct (37.0-47.0) % MCV (81.0-99.0) fL MCH (27.0-31.0) pg MCHC (32.0-36.0) g/dL RDW (12.0-15.0) % Plt Count (130-450) 10^3/uL MPV (7.9-10.8) fL Smear Path Review SEE SEPARATE REPORT PT (9.9-12.6) secs INR (0.8-1.2) APTT (24.9-33.3) secs VBG pH (7.31-7.41) Ionized Calcium (1.09-1.30) mmol/L Sodium (135-145) mmol/L Potassium (3.5-4.5) mmol/L Chloride (101-111) mmol/L Carbon Dioxide (21-32) mmol/L Anion Gap (6-13) BUN (6-20) mg/dL Creatinine (0.6-1.3) mg/dL Estimated GFR (MDRD) (>89) Glucose (74-104) mg/dL Calcium (8.5-10.3) mg/dL Phosphorus (2.5-5.0) mg/dL Magnesium (1.7-2.3) mg/dL Carcinoembryonic Ag ng/mL Blood Type O POSITIVE Antibody Screen NEGATIVE Crossmatch IS Only See Detail Assessment/Plan Problem List (1) Fluid overload: Impression: Resolved. Patient appears euvolemic. No JVD elevation. She had a dose of IV Lasix given 05/01/2029. She is on room air. Echo reveals mildly reduced ejection fraction, 45 to 50%. She has tricuspid, mitral regurgitation. Moderate pulmonary hypertension. - Will gently give 500 mL IV fluid today to help wean her pressors - She is getting protein via tube feeds to help with oncotic pressure - Defer giving albumin at this time - Consider SGLT2i versus MRA for GDMT of HFmrEF once she clinically stabilizes more Qualifiers: Hypervolemia type: unspecified Qualified Code(s): E87.70 - Fluid overload, unspecified (2) Shock: Impression: Improving, her pressor requirements are downtrending. Suspect mostly hypovolemic complicated by further ABLA given blood loss from her central line placement on blood thinners. She received blood product, FFP, PCC, and hemostasis was eventually achieved with pressure and sutures. No further bleeding. There was concern for DIC with prolonged coag times and elevated D-dimer, this has since normalized. - Will start subcutaneous heparin for VTE prophylaxis - Trend CBC in a.m. - Wean pressors with goal of MAP greater than 65 (3) Afib: Impression: Rate controlled currently. Normally on Eliquis and metoprolol. SECOND BALLER medications on hold given shock and ABLA as above - Will start subcutaneous heparin for VTE prophylaxis - Consider resuming Eliquis in 24 to 48 hours Qualifiers: Atrial fibrillation type: unspecified Qualified Code(s): I48.91 - Unspecified atrial fibrillation (4) Acute metabolic encephalopathy: Impression: Resolving. Patient very somnolent. Patient became agitated on 04/30 requiring Ativan which caused somnolence and may have contributed to some initial soft pressures. Code stroke was called but no intracranial hemorrhage or new focal deficits noted. She has a history of prior CVA as below. There is extensive encephalomalacia. Teleneurology recommended starting Keppra with prior hospitalist and now she is on 500 mg twice daily. - Consider EEG if persistently encephalopathic, could be subclinical seizures - No focal neurologic deficits - Continue Keppra 500 mg twice daily - Treating other medical issues as above and below (5) Perforated abdominal viscus: Impression: S/p surgical repair. Patient presented with acute on chronic abdominal pain. CTAP revealed free air concerning for perforated ulcer. Taken emergently to the OR 04/26. Found to have gastric ulcer near the pylorus with concern for pyloric mass. This was biopsied, but preliminary pathology does seem to reveal that it is nonmalignant. IntraOp micro only showing yeast consistent with perforated viscus. She is on Diflucan, Zosyn and vancomycin. Now s/p pyloric exclusion with feeding J-tube and venting G-tube. - Continue tube feeds through J-tube, will ramp up when she is off pressor requirement - Likely discontinue antimicrobials after 7 days if she remains clinically stable, defer to her surgical team - CBC a.m. (6) Cerebrovascular accident (CVA): Impression: With persistent and baseline left-sided deficits and left upper extremity contracture. On Keppra as above. Not on ASA or statin historically. - Consider starting on DOAC and statin for secondary prevention when she clinically stabilizes Qualifiers: CVA mechanism: thrombosis Laterality of affected vessel: right P recerebral and cerebral artery: middle cerebral artery Qualified Code(s): I 63.311 - Cerebral infarction due to thrombosis of right middle cerebral artery (7) HTN (hypertension): Impression: Reportedly has a history of hypertension, but is only on beta-raheem prior to this hospitalization. Shock as above. - Metoprolol is currently on hold, discontinuing as needed metoprolol - When she clinically stabilizes, can resume on her beta-raheem if needed for rate control Qualifiers: Hypertension type: unspecified Qualified Code(s): I10 - Essential (primary) hypertension (8) Diabetes mellitus: Impression: Seemingly diet controlled. Last A1c of 5.1%. - Monitor off sliding scale insulin at this time. Qualifiers: Diabetes mellitus type: type 2 Diabetes mellitus terminal carman insulin use: without terminal carman use Diabetes mellitus complication status: without complication Qualified Code(s): E11.9 - Type 2 diabetes mellitus without complications (9) History of pacemaker: Impression: Noted
[2025-05-02] MEDS: LACTATED RINGERS 500 ML IV ONE (14:51)
--- NOTE | 2025-05-02 16:58 | PROVIDER PROGRESS NOTE ---
Subjective General Admit Date: 04/26/25 Procedure Date: 04/26/25 Post Op Days: 7 Procedure Performed: ExLap, Talha patch, Pyloric Exclusion, Gtube/Jtube Other Other Information/Narrative: POD 6 LAMAR overnight after a very eventful day yesterday with ongoing CVC bleeding and blood products/PCC/TXA. CVC hemostatic overnight, levophed coming down, no further transfusions. No pain this AM, resting comfortably, DEMETRIA drains serous, trickle feeds at goal Wound Assessment Wound/Incisions: positive Healing well (staple line CDI) Review of Systems Status of ROS: 10 or more systems reviewed and unremarkable except as noted in history and below Exam Exam Vital Signs: Vital Signs x48h Temp Pulse Pulse Resp BP BP Pulse Ox 05/03/25 07:00 36.5 C 60 19 127/65 99 05/03/25 06:22 60 125/66 05/03/25 06:00 36.5 C 63 22 132/69 H 96 05/03/25 05:00 36.4 C L 61 25 H 128/69 97 05/03/25 04:00 36.6 C 62 18 121/61 97 05/03/25 03:00 36.5 C 60 27 H 140/63 H 97 05/03/25 02:00 36.4 C L 60 23 121/66 98 05/03/25 01:00 36.5 C 60 16 105/60 97 05/03/25 00:07 60 105/54 L 05/03/25 00:00 36.2 C L 60 17 105/54 L 97 Constitutional abnormal general appearance, distress noted (moderate) and abnormal body habitus (thin) critically ill [facility] [place] hemostatic AZJ CVC Chest inspection of chest normal Respiratory breath sounds equal bilaterally and normal respiratory effort Cardiovascular normal heart rate noted and regular rhythm noted (100% paced) Gastrointestinal abdomen soft to palpation (Diffusely firm/involuntary guarding), nontender to palpation and nondistended R & L DEMETRIA drain - serous G tube - scant gastric contents J tube - tube feeds going in staple line CDI Genitourinary andrews - light yellow clear urine Extremities normal to inspection Neurology GCS 15 Psychiatry oriented x3 Skin skin color normal Impression/Plan Problem List (1) Fluid overload: Qualifiers: Hypervolemia type: unspecified Qualified Code(s): E87.70 - Fluid overload, unspecified (2) Shock: (3) Acute metabolic encephalopathy: (4) Cerebrovascular accident (CVA): Qualifiers: CVA mechanism: thrombosis Laterality of affected vessel: right Precerebral and cerebral artery: middle cerebral artery Qualified Code(s): I63.311 - Cerebral infarction due to thrombosis of right middle cerebral artery Plan 69yoF s/p 04/26/2025 emergent exploratory laparotomy for perforated pyloric ulcer, highly suspicious for malignancy due to history of weight loss and intraoperative appearance. ExLap included biopsies of perforated ulcer/mass, talha patch of perforation, stapled pyloric exclusion, placement of venting gastrostomy tube and feeding jejunostomy tube. Echo with EF 45-50% POD6 Now that CVS is hemostatic and hgb stable, efforts today at recalibrating her overall fluid status - Pain overall controlled, no changes - wean pressers as able, keep andrews for now (replaced 05/01), albumin boluses with lasix PRN - Increase Jejunostomy feeds to goal when pressors off. Is having brown BM now, can use miralax in FWF PRN. OK to have clear liquids for comfort sparingly, they will drain via Gastrostomy tube, which should remain to gravity drainage bag. - Daily CBC/Chem - WBC downtrending and no fever/tachycardia/abdominal pain or distension, no sign of leak by DEMETRIA drain contents. Blood cx with no growth, abdominal cx with yeast growth only. Clinically no sign of intraabdominal leak or abscess. Consider pulmonary source 2/2 effusions if developing sepsis. Continue vanc/zosyn/fluconazole today. Goal to stop vanc/zosyn after 4d, but would be nice to see WBC downtrending. Plan to continue Fluconazole for 7-14d. - continue DEMETRIA drains until consistently tolerating PO clears and J tube feeds with no leaks and clinical stability. - Eliquis held, resume ppx lovenox when HD stable - continue working with PT/SW for dc planning. Will be J-tube dependent for tube feedings shelter. - awaiting pathology to determine shelter care goals Ro Odell DO, FACS General Surgeon, [facility]
[2025-05-02 18:07] LABS: H. PYLORIS ANTIGEN STL NEGATIVE (Negative)
[2025-05-03] MEDS: SODIUM CHLORIDE 0.9% 150 ML IV ONE (04:58)
[2025-05-03 05:12] LABS: HCT - HEMATOCRIT 29.3 % (37.0-47.0); HGB - HEMOGLOBIN 9.4 g/dL (12.0-16.0); MEAN PLATELET VOLUME 8.9 fL (7.9-10.8); NRBC ABSOLUTE COUNT (AUTO) 0.02 x10^3/uL; NUCLEATED RED BLOOD CELLS AUTO 0.2 /100WBC; PLT - PLATELET COUNT 137 10^3/uL (130-450); RED CELL DISTRIBUTION WIDTH 19.2 % (12.0-15.0)
[2025-05-03 05:35] LABS: ALT ALANINE AMINOTRANSFERASE 18.0 IU/L (10-60); AST ASPARTATE AMINOTRANSFERASE 16.0 IU/L (10-42); BUN - BLOOD UREA NITROGEN 38.0 mg/dL (6-20); CARBON DIOXIDE - CO2 22.0 mmol/L (21-32); CREATININE 0.9 mg/dL (0.6-1.3); GFR - MDRD 62.0 (>89); PHOSPHORUS 4.3 mg/dL (2.5-5.0)
[2025-05-03 05:42] LABS: VBG PH 7.397 (7.31-7.41)
[2025-05-03] MEDS ORDERED: DIATRIZOATE MEGLU/DIATRIZO SOD 30 ML BOTTLE PO ONE (11:39)
--- NOTE | 2025-05-03 12:57 | PROVIDER PROGRESS NOTE ---
Subjective Prog Note Date Prog Note Date: 05/03/25 Prog Note Time: 12:51 Subjective Subjective: Patient had uneventful night. Was able went off pressors yesterday. Has been started back on tube feeds and is increasing. She felt well this morning when initially saw her. Later in the morning, she started developing abdominal pain. Her drains which were originally draining serosanguineous fluid started draining a substance that looked suspicious for tube feed. Surgery was notified. Plan will be to get a CT of her abdomen. Pressures remain good. She is on IV antibiotics, no ongoing systemic signs of infection. Current Medications Current Medications Current Medications: Current Medications Generic Name Dose Route Start Last Admin Trade Name Freq PRN Reason Stop Dose Admin Hydromorphone HCl 0.5 mg 04/30/25 18:29 05/03/25 10:54 Hydromorphone 0.5 Mg/0.5 Ml Syringe IVP 0.5 mg Q6HR PRN Administration Severe Pain (Level 7-10) Piperacillin Sod/Tazobactam 100 mls @ 25 mls/hr 04/26/25 17:30 05/03/25 09:18 Sod 4.5 gm/ Sodium Chloride IV 05/03/25 17:29 25 mls/hr Q8H CINDY Administration Fluconazole 100 mls @ 100 mls/hr 04/26/25 18:00 05/02/25 18:24 Diflucan 200 Mg/100 Ml IV Infused Q24H CINDY Infusion Acetaminophen 1,000 mg in 100 mls @ 400 mls/hr 04/27/25 12:00 05/03/25 11:50 Acetaminophen IV Infused Q8H CINDY Infusion Vancomycin HCl 1 gm/ Sodium 250 mls @ 167 mls/hr 04/30/25 12:00 05/03/25 12:18 Chloride IV 05/03/25 23:59 Not Given Q24H CINDY Levetiracetam 500 mg 04/30/25 21:00 05/03/25 08:38 Levetiracetam 500 Mg/5 Ml Udc PO 500 mg BID CINDY Administration Ondansetron HCl 4 mg 04/26/25 17:08 Ondansetron Odt 4 Mg Tablet TL Q6HR PRN Nausea / Vomiting Ondansetron HCl 4 mg 04/26/25 17:08 Ondansetron 4 Mg/2 Ml Vial IVP Q6HR PRN Nausea / Vomiting Pantoprazole Sodium 40 mg 04/26/25 21:00 05/03/25 08:38 Pantoprazole 40 Mg Vial IVP 40 mg BID CINDY Administration Polyethylene Glycol 17 gm 04/29/25 10:32 04/29/25 17:05 Polyethylene Glycol 3350 17 Gm Packet JT 17 gm DAILY PRN Administration Bowel Protocol Sodium Chloride 10 ml 04/26/25 17:08 05/03/25 08:38 Sodium Chloride Flush 0.9% 10 Ml Syringe IVP 10 ml 0100,0900,1700 CINDY Administration Sodium Chloride 10 ml 04/26/25 17:08 05/03/25 04:58 Sodium Chloride Flush 0.9% 10 Ml Syringe IVP 10 ml PRN PRN Administration NEEDED PER PROVIDER ORDERS Zinc Oxide 113 gm 04/27/25 04:26 04/27/25 04:42 Cod Liver Oil/Zinc Oxide 113 Gm Tube TOP 1 applic PRN PRN Administration Skin Care Objective Vital Signs/Intake & Output Reviewed Vital Signs: Yes Vital Signs: Vital Signs x48h Temp Pulse Pulse Resp BP BP Pulse Ox 05/03/25 12:00 36.6 C 61 13 141/81 H 98 05/03/25 11:00 61 15 142/72 H 97 05/03/25 10:00 36.8 C 63 23 134/73 H 99 05/03/25 09:00 63 23 133/76 H 99 05/03/25 08:00 36.6 C 64 25 H 122/68 99 05/03/25 07:00 36.5 C 60 19 127/65 99 05/03/25 06:22 60 125/66 05/03/25 06:00 36.5 C 63 22 132/69 H 96 05/03/25 05:00 36.4 C L 61 25 H 128/69 97 Intake & Output: Intake & Output 04/30/25 05/01/25 05/02/25 05/03/25 23:59 23:59 23:59 23:59 Intake Total 3484 / 3484 4114 / 4114 1623 / 1623 2791 / 2791 Output Total 1775 / 1775 1880 / 1880 1377 / 1377 926 / 926 Balance 1709 / 1709 2234 / 2234 246 / 246 1865 / 1865 Weight (kg) 42.5 kg 50 kg 50 kg 50 kg Objective Comments/Other: GEN: No acute distress. Alert and oriented. Family at bedside HEENT: NC/AT, normal appearance of external ears and nose. Hearing baseline. Cardiac: Irregular rhythm, rate controlled. No JVD. Euvolemic. Pulm: Lungs CTA bilaterally, no cough, no wheezes. Having occasional "grunting" breaths. Denies pain. Abdomen: Soft, nontender, nondistended. DEMETRIA drains with serosanguineous drainage. G-tube and J-tube in place without surrounding erythema. Extremities: Chronic left-sided deficits, and left upper extremity contracture. Neuro: Face symmetric, CN II through XII intact grossly. Chronic and stable left-sided deficits. Psych: Mood euthymic. Affect normal. Lab Results 05/03/25 05:00 05/03/25 05:00 Other Labs: Lab Results x24hrs 05/03/25 05/03/25 05/02/25 Range/Units 11:40 05:00 17:30 WBC 11.3 H (4.8-10.8) x10^3/uL RBC 3.50 L (4.20-5.40) 10^6/uL Hgb 9.4 L (12.0-16.0) g/dL Hct 29.3 L (37.0-47.0) % MCV 83.7 (81.0-99.0) fL MCH 26.9 L (27.0-31.0) pg MCHC 32.1 (32.0-36.0) g/dL RDW 19.2 H (12.0-15.0) % Plt Count 137 (130-450) 10^3/uL MPV 8.9 (7.9-10.8) fL Neut # (Auto) 9.6 H (1.5-6.6) 10^3/uL Lymph # (Auto) 0.8 L (1.5-3.5) 10^3/uL Hawkins # (Auto) 0.3 (0.0-1.0) 10^3/uL Eos # (Auto) 0.3 (0.0-0.7) 10^3/uL Baso # (Auto) 0.0 (0.0-0.1) 10^3/uL Absolute Nucleated RBC 0.02 x10^3/uL Nucleated RBC % 0.2 /100WBC VBG pH 7.397 (7.31-7.41) Ionized Calcium 1.14 (1.09-1.30) mmol/L Sodium 134 L (135-145) mmol/L Potassium 4.3 (3.5-4.5) mmol/L Chloride 107 (101-111) mmol/L Carbon Dioxide 22 (21-32) mmol/L Anion Gap 5.0 L (6-13) BUN 38 H (6-20) mg/dL Creatinine 0.9 (0.6-1.3) mg/dL Estimated GFR (MDRD) 62 L (>89) Glucose 114 H (74-104) mg/dL Calcium 7.3 L (8.5-10.3) mg/dL Phosphorus 4.3 (2.5-5.0) mg/dL Magnesium 2.3 (1.7-2.3) mg/dL Total Bilirubin 0.7 (0.2-1.0) mg/dL AST 16 (10-42) IU/L ALT 18 (10-60) IU/L Alkaline Phosphatase 219 H (42-121) IU/L Total Protein 4.2 L (6.4-8.9) g/dL Albumin 2.1 L (3.2-5.5) g/dL Globulin 2.1 (2.1-4.2) g/dL Albumin/Globulin Ratio 1.0 (1.0-2.2) Carcinoembryonic Ag ng/mL Stool H. pylori Ag NEGATIVE (Negative) Vancomycin Trough 30.0 H* ug/mL 05/02/25 Range/Units 12:00 WBC (4.8-10.8) x10^3/uL RBC (4.20-5.40) 10^6/uL Hgb (12.0-16.0) g/dL Hct (37.0-47.0) % MCV (81.0-99.0) fL MCH (27.0-31.0) pg MCHC (32.0-36.0) g/dL RDW (12.0-15.0) % Plt Count (130-450) 10^3/uL MPV (7.9-10.8) fL Neut # (Auto) (1.5-6.6) 10^3/uL Lymph # (Auto) (1.5-3.5) 10^3/uL Hawkins # (Auto) (0.0-1.0) 10^3/uL Eos # (Auto) (0.0-0.7) 10^3/uL Baso # (Auto) (0.0-0.1) 10^3/uL Absolute Nucleated RBC x10^3/uL Nucleated RBC % /100WBC VBG pH (7.31-7.41) Ionized Calcium (1.09-1.30) mmol/L Sodium (135-145) mmol/L Potassium (3.5-4.5) mmol/L Chloride (101-111) mmol/L Carbon Dioxide (21-32) mmol/L Anion Gap (6-13) BUN (6-20) mg/dL Creatinine (0.6-1.3) mg/dL Estimated GFR (MDRD) (>89) Glucose (74-104) mg/dL Calcium (8.5-10.3) mg/dL Phosphorus (2.5-5.0) mg/dL Magnesium (1.7-2.3) mg/dL Total Bilirubin (0.2-1.0) mg/dL AST (10-42) IU/L ALT (10-60) IU/L Alkaline Phosphatase (42-121) IU/L Total Protein (6.4-8.9) g/dL Albumin (3.2-5.5) g/dL Globulin (2.1-4.2) g/dL Albumin/Globulin Ratio (1.0-2.2) Carcinoembryonic Ag 1.0 ng/mL Stool H. pylori Ag (Negative) Vancomycin Trough ug/mL Assessment/Plan Problem List (1) Fluid overload: Impression: Resolved. Patient remains euvolemic. She last had a dose of IV Lasix given 05/01. She is on room air. Should 500 mL liter fluid bolus given yesterday which helped her wean off of pressors. She is now maintaining her blood pressure as below. She is saturating great on room air. Echo from 05/01 reveals mildly reduced ejection fraction, 45 to 50%. She has tricuspid, mitral regurgitation. Moderate pulmonary hypertension. - Continue fluids and feeds through J-tube, discussed with nutrition to increase her fluids. - Consider SGLT2i versus MRA for GDMT of HFmrEF once she clinically stabilizes more Qualifiers: Hypervolemia type: unspecified Qualified Code(s): E87.70 - Fluid overload, unspecified (2) Shock: Impression: Resolved. She has been off pressors now for nearly 24 hours. Her blood pressure is robust. Suspect mostly hypovolemic complicated by further ABLA given blood loss from her central line placement on blood thinners. She received blood product, FFP, PCC, and hemostasis was eventually achieved with pressure and sutures. No further bleeding. There was concern for DIC with prolonged coag times and elevated D-dimer, this has since normalized. Of note, a peripheral smear was sent on 04/30 and did reveal schistocytes acanthocytes and andry cells raising concern for hemolysis. Clinically does not show any ongoing signs of hemolysis as of 05/03. - Defer heparin today, consider starting SQH tomorrow given potential to return to surgery today. - Trend CBC in a.m. - Pressors discontinued today. - Continue to monitor renal function, slow urine output today. Continue strict I/O (3) Perforated abdominal viscus: Impression: Possibly recurrent Surgically repaired 04/26. There is concern for reperforation given tube feed like material in one of her DEMETRIA drains on 05/03. She is having associated abdominal pain. Discussed her case with surgery. Plan as below. Patient presented initially with acute on chronic abdominal pain. CTAP revealed free air concerning for perforated ulcer. Taken emergently to the OR 04/26. Found to have gastric ulcer near the pylorus with concern for pyloric mass. This was biopsied, but pathology does seem to reveal that it is benign. IntraOp micro only showing yeast consistent with perforated viscus. She Was started on on Diflucan, Zosyn and vancomycin. Now s/p pyloric exclusion with feeding J-tube and venting G-tube. - Hold tube feeds for now - CT abdomen stat - Surgery versus resuming J-tube feeds pending image read - Discontinue antimicrobials today after 7 days of treatment, will continue on antifungal for 1 more week - CBC a.m. - Tentatively resume subcu heparin on a.m. of 05/04 for VTE prophylaxis (4) Acute metabolic encephalopathy: Impression: Resolved. Patient seems to be mentating appropriately per family is at bedside. Patient became agitated on 04/30 requiring Ativan which caused somnolence and may have contributed to some initial soft pressures. Code stroke was called but no intracranial hemorrhage or new focal deficits noted. She has a history of prior CVA as below. There is extensive encephalomalacia. Teleneurology recommended starting Keppra with prior hospitalist and now she is on 500 mg twice daily. Per teleneurology recommendations, I EEG can be considered if she remained persistently encephalopathic, however she is clearing. No focal neurologic deficits. - Continue Keppra 500 mg twice daily - Treating other medical issues as above and below (5) Cerebrovascular accident (CVA): Impression: With persistent and baseline left-sided deficits and left upper extremity contracture. On Keppra as above. Not on ASA or statin historically. - Consider starting on DOAC and statin for secondary prevention when she clinically stabilizes Qualifiers: CVA mechanism: thrombosis Laterality of affected vessel: right P recerebral and cerebral artery: middle cerebral artery Qualified Code(s): I 63.311 - Cerebral infarction due to thrombosis of right middle cerebral artery (6) Afib: Impression: Rate controlled currently. Normally on Eliquis and metoprolol. RELOCATION SPECIALIST medications on hold given shock and ABLA as above - Will start subcutaneous heparin for VTE prophylaxis as above - Will hold Eliquis for now. Consider resuming on around 05/10. Pending clinical course. - Discontinuing IV metoprolol. She was not getting this send heart rate has remained controlled Qualifiers: Atrial fibrillation type: unspecified Qualified Code(s): I48.91 - Unspecified atrial fibrillation (7) HTN (hypertension): Impression: Reportedly has a history of hypertension, but is only on beta-raheem prior to this hospitalization. Shock as above. - When she clinically stabilizes, can resume on her beta-raheem if needed for rate control - Otherwise I would hold beta-raheem indefinitely is not advantageous for first-line and hypertensive in her age group. - Consider starting MRA or SGLT2i as above Qualifiers: Hypertension type: unspecified Qualified Code(s): I10 - Essential (primary) hypertension (8) Diabetes mellitus: Impression: Seemingly diet controlled. Last A1c of 5.1%. - Monitor off sliding scale insulin at this time. Qualifiers: Diabetes mellitus type: type 2 Diabetes mellitus snf insulin use: without watermaster use Diabetes mellitus complication status: without complication Qualified Code(s): E11.9 - Type 2 diabetes mellitus without complications (9) History of pacemaker: Impression: Noted
--- NOTE | 2025-05-03 13:37 | CT Report ---
PROCEDURE: CT Abdomen/Pelvis W INDICATIONS: IV + *oral THROUGH J TUBE*. R/o J tube feed leak. CONTRAST: Omni 300 100ml TECHNIQUE: After the administration of intravenous contrast, a CT scan of the abdomen and pelvis was performed. Images were recorded and evaluated at appropriate window settings. Reformats: coronal and sagittal. For radiation dose reduction, the following was used: automated exposure control, adjustment of mA and/or kV according to patient size. COMPARISON: CT abdomen pelvis 05/01/2025 FINDINGS: Image quality: Diagnostic. Lower chest: Bilateral effusions with superimposed consolidative opacities similar versus slightly more prominent on the left compared to prior exam. Heart is enlarged. Liver: No solid mass. Gallbladder: Sludge versus contrast is present within the gallbladder without wall thickening. Biliary tree: No intrahepatic or extrahepatic dilation, accounting for age. Spleen: No splenomegaly. Pancreas: No pancreatic ductal dilation. Adrenals: No adrenal nodule. Kidneys and ureters: No hydronephrosis. No renal cystic lesion which requires follow up. No solid mass. Stomach, bowel and peritoneum: PEG tube is present within the gastric lumen. G- tube is present. No discrete contrast leak. However, pylorus as well as proximal duodenal C-loop are nondistended limiting evaluation. Abdominal drains are again noted. Lymph nodes: No central or retroperitoneal adenopathy. Vessels: No infrarenal aortic aneurysm. Patent portal vein. PELVIS Reproductive organs: Unremarkable. Bladder: No abnormal wall thickening. Pelvic lymph nodes: No pelvic adenopathy by size criteria. Bones: No aggressive osseous abnormality. Other: No significant ventral or inguinal hernia. Anasarca remains present relatively unchanged. IMPRESSION: No visualized contrast leak However, pylorus and proximal duodenal C-loop are nondistended limiting evaluation. If concern persists, injection of the tube under fluoroscopy may be obtained.. Bilateral effusions with superimposed consolidative opacities. Reviewed by: Lisa Oliver MD on 05/03/2025 1:33 PM PDT Approved by: Lisa Oliver MD on 05/03/2025 1:33 PM PDT Station ID: [id number]
[2025-05-03] MEDS ORDERED: METOPROLOL 5 MG/5 ML VIAL IVP PRN (21:09)
[2025-05-04] MEDS: HYDROmorphone 0.5 MG/0.5 ML SYRINGE IVP ONE (01:55)
[2025-05-04 04:28] LABS: HCT - HEMATOCRIT 28.8 % (37.0-47.0); HGB - HEMOGLOBIN 9.2 g/dL (12.0-16.0); MEAN PLATELET VOLUME 9.3 fL (7.9-10.8); NRBC ABSOLUTE COUNT (AUTO) 0.02 x10^3/uL; NUCLEATED RED BLOOD CELLS AUTO 0.2 /100WBC; PLT - PLATELET COUNT 150 10^3/uL (130-450); RED CELL DISTRIBUTION WIDTH 18.8 % (12.0-15.0)
[2025-05-04 04:32] LABS: VBG PH 7.395 (7.31-7.41)
[2025-05-04] MEDS: KETOROLAC 15 MG/ML VIAL IVP ONE (04:37)
[2025-05-04 04:38] LABS: BUN - BLOOD UREA NITROGEN 34.0 mg/dL (6-20); CARBON DIOXIDE - CO2 21.0 mmol/L (21-32); CREATININE 0.8 mg/dL (0.6-1.3); GFR - MDRD 72.0 (>89); PHOSPHORUS 4.3 mg/dL (2.5-5.0)
--- NOTE | 2025-05-04 07:58 | PROVIDER PROGRESS NOTE ---
Subjective Prog Note Date Prog Note Date: 05/04/25 Prog Note Time: 07:58 Subjective Subjective: She got her night patient experienced increased abdominal pain this morning. She received multiple interventions for pain including IV Tylenol, Dilaudid, and finally a Toradol injection. She says her pain is somewhat better this morning. No rebound tenderness appreciated in her abdomen. Her drains are tender. Her surgical scars are tender. Abdomen is otherwise soft. She had a bowel movement this morning that was reasonably sized. She remains afebrile. No leukocytosis. Vital signs remained stable off of pressors. She is slightly tachypneic in the low 20s. Current Medications Current Medications Current Medications: Current Medications Generic Name Dose Route Start Last Admin Trade Name Freq PRN Reason Stop Dose Admin Heparin Sodium (Porcine) 5,000 unit 05/04/25 09:00 Heparin 5,000 Unit/Ml Vial SUBQ BID CINDY Hydromorphone HCl 0.5 mg 04/30/25 18:29 05/04/25 07:28 Hydromorphone 0.5 Mg/0.5 Ml Syringe IVP 0.5 mg Q6HR PRN Administration Severe Pain (Level 7-10) Fluconazole 100 mls @ 100 mls/hr 04/26/25 18:00 05/03/25 18:53 Diflucan 200 Mg/100 Ml IV Infused Q24H CINDY Infusion Acetaminophen 1,000 mg in 100 mls @ 400 mls/hr 04/27/25 12:00 05/04/25 04:03 Acetaminophen IV Infused Q8H CINDY Infusion Levetiracetam 500 mg 04/30/25 21:00 05/03/25 20:34 Levetiracetam 500 Mg/5 Ml Udc PO 500 mg BID CINDY Administration Metoprolol Tartrate 2.5 mg 05/03/25 21:09 Metoprolol 5 Mg/5 Ml Vial IVP Q6H PRN Tachycardia Ondansetron HCl 4 mg 04/26/25 17:08 Ondansetron Odt 4 Mg Tablet TL Q6HR PRN Nausea / Vomiting Ondansetron HCl 4 mg 04/26/25 17:08 Ondansetron 4 Mg/2 Ml Vial IVP Q6HR PRN Nausea / Vomiting Pantoprazole Sodium 40 mg 04/26/25 21:00 05/03/25 20:05 Pantoprazole 40 Mg Vial IVP 40 mg BID CINDY Administration Polyethylene Glycol 17 gm 04/29/25 10:32 04/29/25 17:05 Polyethylene Glycol 3350 17 Gm Packet JT 17 gm DAILY PRN Administration Bowel Protocol Sodium Chloride 10 ml 04/26/25 17:08 05/04/25 01:12 Sodium Chloride Flush 0.9% 10 Ml Syringe IVP 10 ml 0100,0900,1700 CINDY Administration Sodium Chloride 10 ml 04/26/25 17:08 05/03/25 04:58 Sodium Chloride Flush 0.9% 10 Ml Syringe IVP 10 ml PRN PRN Administration NEEDED PER PROVIDER ORDERS Zinc Oxide 113 gm 04/27/25 04:26 04/27/25 04:42 Cod Liver Oil/Zinc Oxide 113 Gm Tube TOP 1 applic PRN PRN Administration Skin Care Objective Vital Signs/Intake & Output Reviewed Vital Signs: Yes Vital Signs: Vital Signs x48h Temp Pulse Resp BP Pulse Ox 05/04/25 07:00 36.9 C 63 20 132/71 H 99 05/04/25 06:00 36.8 C 61 18 142/82 H 98 05/04/25 05:00 36.7 C 60 18 115/72 98 05/04/25 04:00 36.5 C 60 18 133/67 H 99 05/04/25 03:00 36.6 C 60 21 123/69 98 05/04/25 02:00 36.6 C 64 16 133/78 H 97 05/04/25 01:00 36.7 C 56 L 32 H 139/80 H 98 05/04/25 00:00 36.8 C 62 17 119/61 98 Intake & Output: Intake & Output 05/01/25 05/02/25 05/03/25 05/04/25 23:59 23:59 23:59 23:59 Intake Total 4114 / 4114 1623 / 1623 3549 / 3549 792 / 792 Output Total 1880 / 1880 1377 / 1377 1676 / 1676 435 / 435 Balance 2234 / 2234 246 / 246 1873 / 1873 357 / 357 Weight (kg) 50 kg 50 kg 50 kg 50.5 kg Objective Comments/Other: GEN: No acute distress. Alert and oriented. Family at bedside HEENT: NC/AT, normal appearance of external ears and nose. Hearing baseline. Cardiac: Irregular rhythm, rate controlled. No JVD. Euvolemic. Pulm: Lungs CTA bilaterally, no cough, no wheezes. Having occasional "grunting" breaths. Denies pain. Abdomen: Soft, nontender, nondistended. DEMETRIA drain on the right with serosanguineous drainage. DEMETRIA drain on the left with serous drainage. G-tube and J-tube in place without surrounding erythema.Surgical incisions without surrounding erythema Extremities: Chronic left-sided deficits, and left upper extremity contracture. Neuro: Face symmetric, CN II through XII intact grossly. Chronic and stable left-sided deficits. Psych: Mood euthymic. Affect normal. Lab Results 05/04/25 04:10 05/04/25 04:10 Other Labs: Lab Results x24hrs 05/04/25 05/03/25 Range/Units 04:10 11:40 WBC 9.5 (4.8-10.8) x10^3/uL RBC 3.41 L (4.20-5.40) 10^6/uL Hgb 9.2 L (12.0-16.0) g/dL Hct 28.8 L (37.0-47.0) % MCV 84.5 (81.0-99.0) fL MCH 27.0 (27.0-31.0) pg MCHC 31.9 L (32.0-36.0) g/dL RDW 18.8 H (12.0-15.0) % Plt Count 150 (130-450) 10^3/uL MPV 9.3 (7.9-10.8) fL Neut # (Auto) 8.0 H (1.5-6.6) 10^3/uL Lymph # (Auto) 0.7 L (1.5-3.5) 10^3/uL Terry # (Auto) 0.4 (0.0-1.0) 10^3/uL Eos # (Auto) 0.2 (0.0-0.7) 10^3/uL Baso # (Auto) 0.0 (0.0-0.1) 10^3/uL Absolute Nucleated RBC 0.02 x10^3/uL Nucleated RBC % 0.2 /100WBC VBG pH 7.395 (7.31-7.41) Ionized Calcium 1.13 (1.09-1.30) mmol/L Sodium 134 L (135-145) mmol/L Potassium 4.4 (3.5-4.5) mmol/L Chloride 107 (101-111) mmol/L Carbon Dioxide 21 (21-32) mmol/L Anion Gap 6.0 (6-13) BUN 34 H (6-20) mg/dL Creatinine 0.8 (0.6-1.3) mg/dL Estimated GFR (MDRD) 72 L (>89) Glucose 142 H (74-104) mg/dL Calcium 7.1 L (8.5-10.3) mg/dL Phosphorus 4.3 (2.5-5.0) mg/dL Magnesium 2.2 (1.7-2.3) mg/dL Last Dose Date Last Dose Time 1336 Vancomycin Trough 30.0 H* ug/mL Assessment/Plan Problem List (1) Perforated abdominal viscus: Impression: She has had some abdominal pain this morning, responsive to opiates. She is moving her bowels. She does not have concerning or increasing drainage from her DEMETRIA drains. Patient initially presented with perforated viscus in the setting of of a gastric ulcer. There was concern for reperforation on 05/03, however CT scan does not reveal any contrast evisceration. Tube feeds were resumed. Patient presented initially with acute on chronic abdominal pain. CTAP revealed free air concerning for perforated ulcer. Taken emergently to the OR 04/26. Found to have gastric ulcer near the pylorus with concern for pyloric mass. This was biopsied, but pathology does seem to reveal that it is benign. IntraOp micro only showing yeast consistent with perforated viscus. She Was started on on Diflucan, Zosyn and vancomycin. Now s/p pyloric exclusion with feeding J-tube and venting G-tube. - Tube feeds resumed 05/03 late in the day, increasing rate with dietary today - Will increase free water flushes to 35 mL per - Discontinue antimicrobials today after 7 days of treatment, will continue on antifungal for 1 more week - Will continue monitoring blood counts for at least a couple more days. - She is back on subcutaneous heparin for VTE prophylaxis - Have added on Tylenol, opiates through J-tube. Trying to avoid IV narcotics if possible. (2) Fluid overload: Impression: Resolved. Patient remains euvolemic. She last had a dose of IV Lasix given 05/01. She is on room air. Should 500 mL liter fluid bolus given yesterday which helped her wean off of pressors. She is now maintaining her blood pressure as below. She is saturating great on room air. Echo from 05/01 reveals mildly reduced ejection fraction, 45 to 50%. She has tricuspid, mitral regurgitation. Moderate pulmonary hypertension. - Free water through J-tube as above - Consider SGLT2i versus MRA for GDMT of HFmrEF once she clinically stabilizes more - Chest x-ray to monitor for effusions of any respiratory compromise, currently just having some mild tachypnea. Qualifiers: Hypervolemia type: unspecified Qualified Code(s): E87.70 - Fluid overload, unspecified (3) Shock: Impression: Resolved. She has been off pressors now for nearly 24 hours. Her blood pressure is robust. Suspect mostly hypovolemic complicated by further ABLA given blood loss from her central line placement on blood thinners. She received blood product, FFP, PCC, and hemostasis was eventually achieved with pressure and sutures. No further bleeding. There was concern for DIC with prolonged coag times and elevated D-dimer, this has since normalized. Of note, a peripheral smear was sent on 04/30 and did reveal schistocytes acanthocytes and andry cells raising concern for hemolysis. Clinically does not show any ongoing signs of hemolysis as of 05/03. - She is back on subcutaneous heparin. No concerns for ongoing bleeding - Trend CBC in a.m. - Enteric fluids as above - Continue to monitor renal function, slow urine output today. Continue strict I/O - Given overall stability, likely will remove Gordon 05/05. I/O has been stable. (4) Acute metabolic encephalopathy: Impression: Resolved. Patient Continues to mentate appropriately. Patient became agitated on 04/30 requiring Ativan which caused somnolence and may have contributed to some initial soft pressures. Code stroke was called but no intracranial hemorrhage or new focal deficits noted. She has a history of prior CVA as below. There is extensive encephalomalacia. Teleneurology recommended starting Keppra with prior hospitalist and now she is on 500 mg twice daily. Per teleneurology recommendations, I EEG can be considered if she remained persistently encephalopathic, however she is clearing. No focal neurologic deficits. - Continue Keppra 500 mg twice daily - Treating other medical issues as above and below (5) Cerebrovascular accident (CVA): Impression: With persistent and baseline left-sided deficits and left upper extremity contracture. On Keppra as above. Not on ASA or statin historically. - Consider starting on DOAC and statin for secondary prevention when she clinically stabilizes Qualifiers: CVA mechanism: thrombosis Laterality of affected vessel: right P recerebral and cerebral artery: middle cerebral artery Qualified Code(s): I 63.311 - Cerebral infarction due to thrombosis of right middle cerebral artery (6) Afib: Impression: Rate controlled currently. On telemetry, she has had some runs of RVR. Normally on Eliquis and metoprolol Succinate 25 mg. Metoprolol succinate cannot be given through her J-tube. She has a pacemaker with pacer leads apparent on telemetry and previous EKGs. Working appropriately. - Will start subcutaneous heparin for VTE prophylaxis as above - Will hold Eliquis for now. Consider resuming on around 05/10. Pending clinical course. - Started back on metoprolol to tartrate 12.5 3 times daily. Qualifiers: Atrial fibrillation type: unspecified Qualified Code(s): I48.91 - Unspecified atrial fibrillation (7) HTN (hypertension): Impression: Reportedly has a history of hypertension, but is only on beta-raheem prior to this hospitalization. Shock as above. - Resuming beta-raheem predominantly for A-fib as above. - Consider starting MRA or SGLT2i as above Qualifiers: Hypertension type: unspecified Qualified Code(s): I10 - Essential (primary) hypertension (8) Diabetes mellitus: Impression: Seemingly diet controlled. Last A1c of 5.1%. - Monitor off sliding scale insulin at this time. Qualifiers: Diabetes mellitus complication status: without complication Diabetes mellitus residential insulin use: without computer terminal operator use Diabetes mellitus type: t ype 2 Qualified Code(s): E11.9 - Type 2 diabetes mellitus without complications (9) History of pacemaker: Impression: Noted, As above
[2025-05-04] MEDS ORDERED: oxyCODONE 5 MG TABLET GT PRN (08:10)
[2025-05-04] MEDS: METOPROLOL TARTRATE 25 MG TABLET JT SCH (08:44)
[2025-05-04] MEDS: HEPARIN 5,000 UNIT/ML VIAL SUBQ SCH (08:48)
--- NOTE | 2025-05-04 10:23 | PROVIDER PROGRESS NOTE ---
Subjective General Admit Date: 04/26/25 Procedure Performed: ExLap, Talha patch, Pyloric Exclusion, Gtube/Jtube Other Other Information/Narrative: Yesterday left colic DEMETRIA drain had cloudy yellow appearance along with new left abdominal ttp. I was concerned for a leak from the feeding J tube. A ct abd/pel with IV and enteric contrast via the J tube was completed showing no fluid collection in the left abdomen and no extravasation of contrast; no evidence of leak. The J tube feeds were then resumed and have been at goal. Overnight she had some abdominal pain requiring dilaudid but today she has had much less pain. Her abdomen is still nondistended. The cloudy character of the left DEMETRIA drain yesterday has resolved, and it is again purely serous appearance. She has not been interested in PO sips (for comfort) over the last few days given the acute events, but was trialing a sip of broth this afternoon. The RUQ DEMETRIA drain is serous as well. She was up to chair this AM. She is AAOx3/GCS15. Wound Assessment Wound/Incisions: positive Healing well (staple line CDI) Review of Systems Status of ROS: 10 or more systems reviewed and unremarkable except as noted in history and below Exam Exam Vital Signs: Vital Signs x48h Temp Pulse Resp BP Pulse Ox 05/05/25 12:00 37.2 C 61 24 111/65 98 05/05/25 11:00 60 21 113/65 97 05/05/25 10:00 37.4 C 64 24 118/67 98 05/05/25 09:00 60 12 105/49 L 97 05/05/25 08:00 36.8 C 62 16 97/53 L 98 05/05/25 07:00 37.2 C 64 15 116/65 97 05/05/25 06:00 37.2 C 60 10 L 121/68 97 05/05/25 05:00 37.1 C 60 10 L 112/65 97 Constitutional abnormal general appearance, no apparent distress and abnormal body habitus (thin) critically ill - improving [facility] hemostatic RIJ CVC Chest inspection of chest normal Respiratory breath sounds equal bilaterally and normal respiratory effort Cardiovascular normal heart rate noted and regular rhythm noted (100% paced) Gastrointestinal abdomen soft to palpation (Diffusely firm/involuntary guarding) and nondistended mild left sided ttp Staple line CDI R & L DEMETRIA drain - serous G tube - scant gastric contents J tube - tube feeds going in Genitourinary andrews - light yellow clear urine Extremities normal to inspection Neurology GCS 15 Psychiatry oriented x3 Skin skin color normal Impression/Plan Problem List (1) Perforated chronic gastric ulcer: (2) Status post exploratory laparotomy: (3) Complete gastric outlet obstruction: (4) Jejunostomy tube present: (5) Gastrostomy tube present: Plan [id number] s/p 04/26/2025 emergent exploratory laparotomy for perforated pyloric ulcer, intraoperatively suspicious for malignancy due to history of weight loss and intraoperative invovlement of the hepatic ligament, though biopsies have returned as BENIGN. ExLap included biopsies of perforated ulcer, talha patch of perforation, stapled pyloric exclusion, placement of venting gastrostomy tube and feeding jejunostomy tube. No gastric biopsies for H pylori but stool h pylori negative. CEA normal. H/o Afib on Eliquis with pacemaker, Echo this admission with EF 45-50%. Hospital course has been notable for tenuous volume status between significant third spacing and edema/anasarca as well as intravascular hypovolemia. On and off pressors during the first week. Transient AMS/delirium after ativan concern ing for recurrent CVA, but imaging demonstrated only her old CVA lesion. Significant blood loss from RIJ CVC requiring multiple blood products to correct the resultant coagulopathy/hemolysis. All of these things now managaged and overall seems to be heading towards a steady state. POD8 - Pain overall controlled, no changes (IV or liquid meds via J Tube) - albumin boluses with lasix PRN, goal to dc andrews soon (per IM) - Jejunostomy feeds at goal. Is having brown BM now, can use miralax in FWF PRN. - OK to have clear liquids for comfort sparingly, they will drain via Gastrostomy tube, which should remain to gravity drainage bag. - Daily CBC/Chem - WBC now normalized. Completed 1 week vanc/zosyn. Plan 14d fluconazole. Blood cx with no growth, abdominal cx with yeast growth only. - No sign of leak by DEMETRIA drain contents. (LEFT DEMETRIA in LEFT colic gutter, monitoring for G tube or J tube leak; RIGHT DEMETRIA is posterior to talha patch and in RUQ, monitoring for recurrent leak from perforation) - continue DEMETRIA drains until consistently mobilizing, tolerating J tube feeds, and PO sips/clears for comfort with with no leaks and clinical stability. Plan to remove prior to DC to SNF. - On heparin ppx, resume home Eliquis per IM - continue working with PT/SW for dc planning. 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 - Remove midline eleno --> steristrips prn before discharge. - continue protonix BID on discharge [facility] plan: repeat EGD in 3-6m to assess opening of pyloric exclusion and or ulcer regression. Repeat biopsies of mass/h pylori (is pyloric exclusion is open). Consider PET for confirmation of no malignancy. If pylorus opens on its own, will be able to resume PO feeds and DC G/J. If pylorus does not reopen, goal to reoperate for transition to G-J anastomosis once she has rehab'd well. Signing out to Dr. Lehman for surgical coverage tomorrow. Ro Odell DO, FACS General Surgeon, [facility]
[2025-05-04] MEDS: SIMETHICONE 40 MG/0.6 ML 30 ML BOTTLE JT PRN (11:31)
[2025-05-04] MEDS: oxyCODONE 5 MG TABLET FT PRN (14:35)
[2025-05-05] MEDS: HYDROmorphone 0.5 MG/0.5 ML SYRINGE IVP ONE (01:10)
[2025-05-05 04:31] LABS: HCT - HEMATOCRIT 26.5 % (37.0-47.0); HGB - HEMOGLOBIN 8.3 g/dL (12.0-16.0); MEAN PLATELET VOLUME 9.1 fL (7.9-10.8); NRBC ABSOLUTE COUNT (AUTO) 0.00 x10^3/uL; NUCLEATED RED BLOOD CELLS AUTO 0.0 /100WBC; PLT - PLATELET COUNT 162 10^3/uL (130-450); RED CELL DISTRIBUTION WIDTH 18.9 % (12.0-15.0)
[2025-05-05 04:34] LABS: VBG PH 7.377 (7.31-7.41)
[2025-05-05 04:49] LABS: PHOSPHORUS 4.1 mg/dL (2.5-5.0)
[2025-05-05 05:07] LABS: BUN - BLOOD UREA NITROGEN 31.0 mg/dL (6-20); CARBON DIOXIDE - CO2 22.0 mmol/L (21-32); CREATININE 0.7 mg/dL (0.6-1.3); GFR - MDRD 83.0 (>89)
--- NOTE | 2025-05-05 08:20 | PROVIDER PROGRESS NOTE ---
Progress Note Progress Note Progress Note: General Surgery Progress Note Hospital Day #14 POD # 13, Exploratory laparotomy, Talha patch repair of perforated duodenal ulcer, Pyloric exclusion (stapled), Gastrostomy, Feeding jejunostomy Code Status: Full ASSESSMENT: 1) Chronic duodenal ulcer with near complete gastric outlet obstruction due to benign stricture (see path report) associated with anterior perforation of the duodenum resulting in generalized peritonitis - the patient is now improving with jejunostomy tube feedings and initiation of physical therapy. There has been no clinical or image evidence of intra-abdominal leakage, abscess, or bleeding. There are no wound issues. 2) Yeast (Thuy albicans) identified in peritoneal fluid 3) Protein-calorie malnutrition (TP 4.2; Alb 2.1) PLAN: 1) Continue tube feedings - she seems to be tolerating this well 2) Continue PT 3) Drains to be removed before discharge to SNF 4) Two week course of Diflucan recommended 5) Several months of PPI orally 5) The stapled pyloric exclusion may spontaneously open after 3-5 weeks. A barium UGI may be then considered to determine if the pyloric stenosis has also resolved. If not, a gastrojejunostomy may at that time be considered. <><><><><> PERTINENT INTERVAL ISSUES: None S: Comfortable; No complaint of pain OBJECTIVE: I/O: 2599/1436 VS: BP 97/53; P 62; RR 16; T 36.8 EXAMINATION: MENTAL STATUS: AAO; Comfortable; cooperative EYES: Pupils equal, round and reactive to light, sclera anicteric, EARS, NOSE, MOUTH, THROAT: Normal hearing, Oral mucous membranes moist and without lesions; NECK: No crepitus, lymphadenopathy, or thyromegaly LUNGS: Clear to auscultation without wheezing; No use of accessory muscles to breathe CARDIOVASCULAR: Heart-NSR without murmurs; ABD: Soft, non-tender, not distended; Incision clean and dry - eleno in place; Righ DEMETRIA scant output; Left DEMETRIA clear serosanguinous fluid; Jejunostomy tube secure and functional; Gastrostomy tube secure and functional; +BS LABS: WBC 8.4; H&H 8.3/26.5; PLT 162K; NA 131; K 4.9; Cr 0.7; Glu 147 CULTURES: Blood NG Peritoneal fluid - Thuy albicans IMAGING: None today ANTIMICROBIALS: Day 10 Diflucan IV PAIN CONTROL: Oxycodone PO prn, Acetaminophen VTEP: Chemical: Heparin, 5,000 units, SQ, Q 12 hrs Mechanical: SCD Magdiel Lehman MD, FACS General Surgery Service
--- NOTE | 2025-05-05 11:02 | PROVIDER PROGRESS NOTE ---
Subjective Prog Note Date Prog Note Date: 05/05/25 Prog Note Time: 11:02 Subjective Subjective: Ms. Albert is a 69-year-old female with a history of prior CVA, atrial fibrillation who presented with acute on chronic abdominal pain and was found to have a perforated gastric ulcer now status post pyloric exclusion. She has a feeding J-tube and venting G-tube. Still with persistent drains in place in her right and left abdomen. Still draining. Slowing somewhat. Urine output remains greater than 30 cc/h. Patient is having some pain in her abdomen, but unchanged from day prior. White count is remained resolved. Potassium mildly increased to 4.9. Discussed care with general surgery this morning. Current Medications Current Medications Current Medications: Current Medications Generic Name Dose Route Start Last Admin Trade Name Freq PRN Reason Stop Dose Admin Heparin Sodium (Porcine) 5,000 unit 05/04/25 09:00 05/05/25 08:25 Heparin 5,000 Unit/Ml Vial SUBQ 5,000 unit BID CINDY Administration Hydromorphone HCl 0.5 mg 04/30/25 18:29 05/04/25 22:01 Hydromorphone 0.5 Mg/0.5 Ml Syringe IVP 0.5 mg Q6HR PRN Administration Severe Pain (Level 7-10) Fluconazole 100 mls @ 100 mls/hr 04/26/25 18:00 05/04/25 18:53 Diflucan 200 Mg/100 Ml IV Infused Q24H CINDY Infusion Acetaminophen 1,000 mg in 100 mls @ 400 mls/hr 04/27/25 12:00 05/05/25 04:25 Acetaminophen IV Infused Q8H CINDY Infusion Levetiracetam 500 mg 05/04/25 09:29 05/05/25 08:24 Levetiracetam 500 Mg/5 Ml Udc JT 500 mg BID CINDY Administration Metoprolol Tartrate 2.5 mg 05/03/25 21:09 Metoprolol 5 Mg/5 Ml Vial IVP Q6H PRN Tachycardia Metoprolol Tartrate 12.5 mg 05/04/25 08:15 05/05/25 06:04 Metoprolol Tartrate 25 Mg Tablet JT 12.5 mg TID CINDY Administration Ondansetron HCl 4 mg 04/26/25 17:08 Ondansetron Odt 4 Mg Tablet TL Q6HR PRN Nausea / Vomiting Ondansetron HCl 4 mg 04/26/25 17:08 Ondansetron 4 Mg/2 Ml Vial IVP Q6HR PRN Nausea / Vomiting Oxycodone HCl 5 mg 05/04/25 08:13 05/05/25 08:24 Oxycodone 5 Mg Tablet FT 5 mg Q4HR PRN Administration Moderate Pain (Level 4-6) Pantoprazole Sodium 40 mg 04/26/25 21:00 05/05/25 08:25 Pantoprazole 40 Mg Vial IVP 40 mg BID CINDY Administration Polyethylene Glycol 17 gm 04/29/25 10:32 04/29/25 17:05 Polyethylene Glycol 3350 17 Gm Packet JT 17 gm DAILY PRN Administration Bowel Protocol Simethicone 80 mg 05/04/25 08:12 05/04/25 11:31 Simethicone 40 Mg/0.6 Ml 30 Ml Bottle JT 80 mg Q6HR PRN Administration Gas Sodium Chloride 10 ml 04/26/25 17:08 05/05/25 08:25 Sodium Chloride Flush 0.9% 10 Ml Syringe IVP 10 ml 0100,0900,1700 CINDY Administration Sodium Chloride 10 ml 04/26/25 17:08 05/05/25 04:20 Sodium Chloride Flush 0.9% 10 Ml Syringe IVP 10 ml PRN PRN Administration NEEDED PER PROVIDER ORDERS Zinc Oxide 113 gm 04/27/25 04:26 04/27/25 04:42 Cod Liver Oil/Zinc Oxide 113 Gm Tube TOP 1 applic PRN PRN Administration Skin Care Objective Vital Signs/Intake & Output Reviewed Vital Signs: Yes Vital Signs: Vital Signs x48h Temp Pulse Resp BP Pulse Ox 05/05/25 10:00 37.4 C 64 24 118/67 98 05/05/25 09:00 60 12 105/49 L 97 05/05/25 08:00 36.8 C 62 16 97/53 L 98 05/05/25 07:00 37.2 C 64 15 116/65 97 05/05/25 06:00 37.2 C 60 10 L 121/68 97 05/05/25 05:00 37.1 C 60 10 L 112/65 97 05/05/25 04:00 37.1 C 60 10 L 123/64 97 Intake & Output: Intake & Output 05/02/25 05/03/25 05/04/25 05/05/25 23:59 23:59 23:59 23:59 Intake Total 1623 / 1623 3549 / 3549 2432 / 2432 1231 / 1231 Output Total 1377 / 1377 1676 / 1676 1660 / 1660 476 / 476 Balance 246 / 246 1873 / 1873 772 / 772 755 / 755 Weight (kg) 50 kg 50 kg 50.5 kg 51.5 kg Objective Comments/Other: GEN: No acute distress. Alert and oriented. Family at bedside HEENT: NC/AT, normal appearance of external ears and nose. Hearing baseline. Cardiac: Irregular rhythm, rate controlled. No JVD. Euvolemic. Pulm: Lungs CTA bilaterally, no cough, no wheezes. Having occasional "grunting" breaths. Denies pain. Abdomen: Soft, nontender, nondistended. DEMETRIA drain on the right with serosanguineous drainage. DEMETRIA drain on the left with serous drainage. G-tube and J-tube in place without surrounding erythema.Surgical incisions without surrounding erythema Extremities: Chronic left-sided deficits, and left upper extremity contracture. Neuro: Face symmetric, CN II through XII intact grossly. Chronic and stable left-sided deficits. Psych: Mood euthymic. Affect normal. Lab Results 05/05/25 04:25 05/05/25 04:25 Other Labs: Lab Results x24hrs 05/05/25 05/01/25 Range/Units 04:25 06:30 WBC 8.4 (4.8-10.8) x10^3/uL RBC 3.08 L (4.20-5.40) 10^6/uL Hgb 8.3 L (12.0-16.0) g/dL Hct 26.5 L (37.0-47.0) % MCV 86.0 (81.0-99.0) fL MCH 26.9 L (27.0-31.0) pg MCHC 31.3 L (32.0-36.0) g/dL RDW 18.9 H (12.0-15.0) % Plt Count 162 (130-450) 10^3/uL MPV 9.1 (7.9-10.8) fL Neut # (Auto) 6.6 (1.5-6.6) 10^3/uL Lymph # (Auto) 1.0 L (1.5-3.5) 10^3/uL [place] # (Auto) 0.4 (0.0-1.0) 10^3/uL Eos # (Auto) 0.3 (0.0-0.7) 10^3/uL Baso # (Auto) 0.0 (0.0-0.1) 10^3/uL Absolute Nucleated RBC 0.00 x10^3/uL Nucleated RBC % 0.0 /100WBC VBG pH 7.377 (7.31-7.41) Ionized Calcium 1.13 (1.09-1.30) mmol/L Sodium 131 L (135-145) mmol/L Potassium 4.9 H (3.5-4.5) mmol/L Chloride 105 (101-111) mmol/L Carbon Dioxide 22 (21-32) mmol/L Anion Gap 4.0 L (6-13) BUN 31 H (6-20) mg/dL Creatinine 0.7 (0.6-1.3) mg/dL Estimated GFR (MDRD) 83 L (>89) Glucose 147 H (74-104) mg/dL Calcium 6.9 L (8.5-10.3) mg/dL Phosphorus 4.1 (2.5-5.0) mg/dL Magnesium 2.1 (1.7-2.3) mg/dL Blood Type O POSITIVE Antibody Screen NEGATIVE Crossmatch IS Only See Detail Assessment/Plan Problem List (1) Perforated chronic gastric ulcer: (2) Status post exploratory laparotomy: (3) Complete gastric outlet obstruction: (4) Jejunostomy tube present: (5) Gastrostomy tube present: (6) Perforated abdominal viscus: Impression: She has had some abdominal pain this morning, responsive to opiates. She is moving her bowels. She does not have concerning or increasing drainage from her DEMETRIA drains. Patient initially presented with perforated viscus in the setting of of a gastric ulcer. There was concern for reperforation on 05/03, however CT scan does not reveal any contrast evisceration. Tube feeds were resumed. Patient presented initially with acute on chronic abdominal pain. CTAP revealed free air concerning for perforated ulcer. Taken emergently to the OR 04/26. Found to have gastric ulcer near the pylorus with concern for pyloric mass. This was biopsied, but pathology does seem to reveal that it is benign. IntraOp micro only showing yeast consistent with perforated viscus. She Was started on on Diflucan, Zosyn and vancomycin. Now s/p pyloric exclusion with feeding J-tube and venting G-tube. - Tube feeds resumed 05/03 late in the day, increasing rate with dietary today - Will increase free water flushes to 35 mL per - Discontinue antimicrobials today after 7 days of treatment, will continue on antifungal for 1 more week - Will continue monitoring blood counts for at least a couple more days. - She is back on subcutaneous heparin for VTE prophylaxis - Have added on Tylenol, opiates through J-tube. Trying to avoid IV narcotics if possible. (7) Fluid overload: Impression: Resolved. Patient remains euvolemic. She last had a dose of IV Lasix given 05/01. She is on room air. Should 500 mL liter fluid bolus given yesterday which helped her wean off of pressors. She is now maintaining her blood pressure as below. She is saturating great on room air. Echo from 05/01 reveals mildly reduced ejection fraction, 45 to 50%. She has tricuspid, mitral regurgitation. Moderate pulmonary hypertension. - Free water through J-tube as above - Consider SGLT2i versus MRA for GDMT of HFmrEF once she clinically stabilizes more - Chest x-ray to monitor for effusions of any respiratory compromise, currently just having some mild tachypnea. Qualifiers: Hypervolemia type: unspecified Qualified Code(s): E87.70 - Fluid overload, unspecified (8) Shock: Impression: Resolved. She has been off pressors now for nearly 24 hours. Her blood pressure is robust. Suspect mostly hypovolemic complicated by further ABLA given blood loss from her central line placement on blood thinners. She received blood product, FFP, PCC, and hemostasis was eventually achieved with pressure and sutures. No further bleeding. There was concern for DIC with prolonged coag times and elevated D-dimer, this has since normalized. Of note, a peripheral smear was sent on 04/30 and did reveal schistocytes acanthocytes and andry cells raising concern for hemolysis. Clinically does not show any ongoing signs of hemolysis as of 05/03. - She is back on subcutaneous heparin. No concerns for ongoing bleeding - Trend CBC in a.m. - Enteric fluids as above - Continue to monitor renal function, slow urine output today. Continue strict I/O - Given overall stability, likely will remove Gordon 05/05. I/O has been stable. (9) Acute metabolic encephalopathy: Impression: Resolved. Patient Continues to mentate appropriately. Patient became agitated on 04/30 requiring Ativan which caused somnolence and may have contributed to some initial soft pressures. Code stroke was called but no intracranial hemorrhage or new focal deficits noted. She has a history of prior CVA as below. There is extensive encephalomalacia. Teleneurology recommended starting Keppra with prior hospitalist and now she is on 500 mg twice daily. Per teleneurology recommendations, I EEG can be considered if she remained persistently encephalopathic, however she is clearing. No focal neurologic deficits. - Continue Keppra 500 mg twice daily - Treating other medical issues as above and below (10) Cerebrovascular accident (CVA): Impression: With persistent and baseline left-sided deficits and left upper extremity contracture. On Keppra as above. Not on ASA or statin historically. - Consider starting on DOAC and statin for secondary prevention when she clinically stabilizes Qualifiers: CVA mechanism: thrombosis Laterality of affected vessel: right P recerebral and cerebral artery: middle cerebral artery Qualified Code(s): I 63.311 - Cerebral infarction due to thrombosis of right middle cerebral artery (11) Afib: Impression: Rate controlled currently. On telemetry, she has had some runs of RVR. Normally on Eliquis and metoprolol Succinate 25 mg. Metoprolol succinate cannot be given through her J-tube. She has a pacemaker with pacer leads apparent on telemetry and previous EKGs. Working appropriately. - Will start subcutaneous heparin for VTE prophylaxis as above - Will hold Eliquis for now. Consider resuming on around 05/10. Pending clinical course. - Started back on metoprolol to tartrate 12.5 3 times daily. Qualifiers: Atrial fibrillation type: unspecified Qualified Code(s): I48.91 - Unspecified atrial fibrillation (12) HTN (hypertension): Impression: Reportedly has a history of hypertension, but is only on beta-raheem prior to this hospitalization. Shock as above. - Resuming beta-raheem predominantly for A-fib as above. - Consider starting MRA or SGLT2i as above Qualifiers: Hypertension type: unspecified Qualified Code(s): I10 - Essential (primary) hypertension (13) Diabetes mellitus: Impression: Seemingly diet controlled. Last A1c of 5.1%. - Monitor off sliding scale insulin at this time. 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
--- NOTE | 2025-05-05 12:04 | XRAY Report ---
PROCEDURE: XR Chest 1V INDICATIONS: Tachycardia, volume overload TECHNIQUE: One view of the chest was acquired. COMPARISON: 05/01/2025. FINDINGS: Surgical changes and devices: Left chest wall pacemaker leads are in the region of right atrium and right ventricle. Right internal jugular central venous catheter tip is in SVC.. Lungs and pleura: Blunting of bilateral costophrenic angles is seen suggestive of small bilateral pleural effusion unchanged or slightly decreased compared to previous study. Pulmonary vascular congestion and mild pulmonary edema is seen. No definite focal infiltrate. No pneumothorax.. Mediastinum: Mediastinal contours appear normal. Heart size is enlarged. Bones and chest wall: No suspicious bony lesions. Overlying soft tissues appear unremarkable. IMPRESSION: CHF changes unchanged or slightly improved compared to previous study. No gross pneumothorax. Reviewed by: Almas James MD on 05/05/2025 12:00 PM PDT Approved by: Almas James MD on 05/05/2025 12:00 PM PDT Station ID: [id number]
--- NOTE | 2025-05-05 12:12 | PROVIDER PROGRESS NOTE ---
Subjective Prog Note Date Prog Note Date: 05/05/25 Prog Note Time: 12:08 Subjective Subjective: Ms. Albert is a 69-year-old female with a history of prior CVA, atrial fibrillation who presented with acute on chronic abdominal pain and was found to have a perforated gastric ulcer now status post pyloric exclusion. She has a feeding J-tube and venting G-tube. Still with persistent drains in place in her right and left abdomen. Still draining. Slowing somewhat. Urine output remains greater than 30 cc/h. Patient is having some pain in her abdomen, but unchanged from day prior. White count is remained resolved. Potassium mildly increased to 4.9. Discussed care with general surgery this morning. Current Medications Current Medications Current Medications: Current Medications Generic Name Dose Route Start Last Admin Trade Name Freq PRN Reason Stop Dose Admin Heparin Sodium (Porcine) 5,000 unit 05/04/25 09:00 05/05/25 08:25 Heparin 5,000 Unit/Ml Vial SUBQ 5,000 unit BID CINDY Administration Hydromorphone HCl 0.5 mg 04/30/25 18:29 05/05/25 11:16 Hydromorphone 0.5 Mg/0.5 Ml Syringe IVP 0.5 mg Q6HR PRN Administration Severe Pain (Level 7-10) Fluconazole 100 mls @ 100 mls/hr 04/26/25 18:00 05/04/25 18:53 Diflucan 200 Mg/100 Ml IV Infused Q24H CINDY Infusion Acetaminophen 1,000 mg in 100 mls @ 400 mls/hr 04/27/25 12:00 05/05/25 11:50 Acetaminophen IV Infused Q8H CINDY Infusion Levetiracetam 500 mg 05/04/25 09:29 05/05/25 08:24 Levetiracetam 500 Mg/5 Ml Udc JT 500 mg BID CINDY Administration Metoprolol Tartrate 2.5 mg 05/03/25 21:09 Metoprolol 5 Mg/5 Ml Vial IVP Q6H PRN Tachycardia Metoprolol Tartrate 12.5 mg 05/04/25 08:15 05/05/25 06:04 Metoprolol Tartrate 25 Mg Tablet JT 12.5 mg TID CINDY Administration Ondansetron HCl 4 mg 04/26/25 17:08 Ondansetron Odt 4 Mg Tablet TL Q6HR PRN Nausea / Vomiting Ondansetron HCl 4 mg 04/26/25 17:08 Ondansetron 4 Mg/2 Ml Vial IVP Q6HR PRN Nausea / Vomiting Oxycodone HCl 5 mg 05/04/25 08:13 05/05/25 08:24 Oxycodone 5 Mg Tablet FT 5 mg Q4HR PRN Administration Moderate Pain (Level 4-6) Pantoprazole Sodium 40 mg 04/26/25 21:00 05/05/25 08:25 Pantoprazole 40 Mg Vial IVP 40 mg BID CINDY Administration Polyethylene Glycol 17 gm 04/29/25 10:32 04/29/25 17:05 Polyethylene Glycol 3350 17 Gm Packet JT 17 gm DAILY PRN Administration Bowel Protocol Simethicone 80 mg 05/04/25 08:12 05/04/25 11:31 Simethicone 40 Mg/0.6 Ml 30 Ml Bottle JT 80 mg Q6HR PRN Administration Gas Sodium Chloride 10 ml 04/26/25 17:08 05/05/25 08:25 Sodium Chloride Flush 0.9% 10 Ml Syringe IVP 10 ml 0100,0900,1700 CINDY Administration Sodium Chloride 10 ml 04/26/25 17:08 05/05/25 04:20 Sodium Chloride Flush 0.9% 10 Ml Syringe IVP 10 ml PRN PRN Administration NEEDED PER PROVIDER ORDERS Zinc Oxide 113 gm 04/27/25 04:26 04/27/25 04:42 Cod Liver Oil/Zinc Oxide 113 Gm Tube TOP 1 applic PRN PRN Administration Skin Care Objective Vital Signs/Intake & Output Reviewed Vital Signs: Yes Vital Signs: Vital Signs x48h Temp Pulse Resp BP Pulse Ox 05/05/25 12:00 37.2 C 61 24 111/65 98 05/05/25 11:00 60 21 113/65 97 05/05/25 10:00 37.4 C 64 24 118/67 98 05/05/25 09:00 60 12 105/49 L 97 05/05/25 08:00 36.8 C 62 16 97/53 L 98 05/05/25 07:00 37.2 C 64 15 116/65 97 05/05/25 06:00 37.2 C 60 10 L 121/68 97 05/05/25 05:00 37.1 C 60 10 L 112/65 97 Intake & Output: Intake & Output 05/02/25 05/03/25 05/04/25 05/05/25 23:59 23:59 23:59 23:59 Intake Total 1623 / 1623 3549 / 3549 2432 / 2432 1603 / 1603 Output Total 1377 / 1377 1676 / 1676 1660 / 1660 651 / 651 Balance 246 / 246 1873 / 1873 772 / 772 952 / 952 Weight (kg) 50 kg 50 kg 50.5 kg 51.5 kg Objective Comments/Other: GEN: No acute distress. Alert and oriented. Family at bedside HEENT: NC/AT, normal appearance of external ears and nose. Hearing baseline. Cardiac: Irregular rhythm, rate controlled. No JVD. Euvolemic. Pulm: Lungs CTA bilaterally, no cough, no wheezes. Having occasional "grunting" breaths. Denies pain. Abdomen: Soft, nondistended. Tender in the umbilical, epigastric and right upper quadrant region.No rebound tenderness or guarding DEMETRIA drain on the right with serosanguineous drainage. DEMETRIA drain on the left with serous drainage. G-tube and J-tube in place without surrounding erythema. Surgical incisions without surrounding erythema Extremities: Chronic left-sided deficits, and left upper extremity contracture. Neuro: Face symmetric, CN II through XII intact grossly. Chronic and stable left-sided deficits. Psych: Mood euthymic. Affect normal. Lab Results 05/05/25 04:25 05/05/25 04:25 Other Labs: Lab Results x24hrs 05/05/25 05/01/25 Range/Units 04:25 06:30 WBC 8.4 (4.8-10.8) x10^3/uL RBC 3.08 L (4.20-5.40) 10^6/uL Hgb 8.3 L (12.0-16.0) g/dL Hct 26.5 L (37.0-47.0) % MCV 86.0 (81.0-99.0) fL MCH 26.9 L (27.0-31.0) pg MCHC 31.3 L (32.0-36.0) g/dL RDW 18.9 H (12.0-15.0) % Plt Count 162 (130-450) 10^3/uL MPV 9.1 (7.9-10.8) fL Neut # (Auto) 6.6 (1.5-6.6) 10^3/uL Lymph # (Auto) 1.0 L (1.5-3.5) 10^3/uL [place] # (Auto) 0.4 (0.0-1.0) 10^3/uL Eos # (Auto) 0.3 (0.0-0.7) 10^3/uL Baso # (Auto) 0.0 (0.0-0.1) 10^3/uL Absolute Nucleated RBC 0.00 x10^3/uL Nucleated RBC % 0.0 /100WBC VBG pH 7.377 (7.31-7.41) Ionized Calcium 1.13 (1.09-1.30) mmol/L Sodium 131 L (135-145) mmol/L Potassium 4.9 H (3.5-4.5) mmol/L Chloride 105 (101-111) mmol/L Carbon Dioxide 22 (21-32) mmol/L Anion Gap 4.0 L (6-13) BUN 31 H (6-20) mg/dL Creatinine 0.7 (0.6-1.3) mg/dL Estimated GFR (MDRD) 83 L (>89) Glucose 147 H (74-104) mg/dL Calcium 6.9 L (8.5-10.3) mg/dL Phosphorus 4.1 (2.5-5.0) mg/dL Magnesium 2.1 (1.7-2.3) mg/dL Crossmatch IS Only See Detail Assessment/Plan Problem List (1) Jejunostomy tube present: (2) Gastrostomy tube present: (3) Complete gastric outlet obstruction: (4) Status post exploratory laparotomy: (5) Perforated chronic gastric ulcer: Impression: Continues to improve Patient continues to have some abdominal pain, but she says it is better today. Has been well-managed with as needed medications. She is moving her bowels. Drainage from her DEMETRIA drain seems to be improving. Left DEMETRIA drain with 580 out yesterday. 700 out day prior. Only 250 since midnight. Right DEMETRIA drain has effectively resolved. Less than 100 out over the last 24 hours. Vital signs otherwise remained stable. Recall the patient presented initially with acute on chronic abdominal pain with CTAP at that time revealing free air concerning for perforated ulcer. She was taken emergently to the OR 04/26 was found to have a gastric ulcer near the pylorus with concern for pyloric mass. Pyloric exclusion was performed, and the mass was biopsied. Biopsy pathology was benign. IntraOp cultures were positive only for yeast. She was initially on broad-spectrum antibiotics as well as Diflucan, discontinued antimicrobials at 7 days with continuation of antifungals for a total of 14 days. - Continue tube feeds at current rate with free water flushes (35 mL/h) - Recheck prealbumin on 05/08 - Continue Diflucan for total of 14 days, EOT around 05/10 - No longer trending CBC, blood counts stable. - Continue SQH for VTE prophylaxis - Pain management Tylenol, opiates through J-tube. (6) HFrEF (heart failure with reduced ejection fraction): Impression: Stable. Patient has some mild interstitial fluid on her chest x-ray today. She is on room air. Patient is somewhat more edematous in her extremities, but not frankly volume overloaded. She has had tenuous fluid shifts throughout this hospitalization and received a lot of fluid with her surgery. She became volume overloaded on 05/01 requiring IV Lasix. An echo was performed at that time which revealed an EF of 45 to 50% she also has tricuspid, mitral regurgitation with moderate pulmonary hypertension. - Free water through J-tube as above - Consideration to start her on MRA for GDMT, however she has elevated potassium - Will start on furosemide 20 mg per j-tube today. (7) Shock: Impression: Resolved. Has been off pressors since 05/03. Suspect mostly hypovolemic complicated by further ABLA given blood loss from her central line placement on blood thinners. She received blood product, FFP, PCC, and hemostasis was eventually achieved with pressure and sutures. No further bleeding. There was concern for DIC with prolonged coag times and elevated D-dimer, this has since normalized. Of note, a peripheral smear was sent on 04/30 and did reveal schistocytes acanthocytes and andry cells raising concern for hemolysis. Clinically does not show any ongoing signs of hemolysis as of 05/03. - Monitoring clinically for any signs of bleeding since resuming on SQH - Enteric fluids as above - Continue to monitor renal function, slow urine output today. Continue strict I/O - Gordon removal 05/06, ordered (8) Acute metabolic encephalopathy: Impression: Resolved. Patient Continues to mentate appropriately. Patient became agitated on 04/30 requiring Ativan which caused somnolence and may have contributed to some initial soft pressures. Code stroke was called but no intracranial hemorrhage or new focal deficits noted. She has a history of prior CVA as below. There is extensive encephalomalacia. Teleneurology recommended starting Keppra with prior hospitalist and now she is on 500 mg twice daily. Per teleneurology recommendations, I EEG can be considered if she remained persistently encephalopathic, however she is clearing. No focal neurologic deficits. - Continue Keppra 500 mg twice daily - Treating other medical issues as above and below (9) Afib: Impression: Rate controlled currently. On telemetry, she has had some runs of RVR. Normally on Eliquis and metoprolol Succinate 25 mg. Metoprolol succinate cannot be given through her J-tube. She has a pacemaker with pacer leads apparent on telemetry and previous EKGs. Working appropriately. - On SQH for VTE prophylaxis, resume Eliquis tentatively 05/09. - Started back on metoprolol to tartrate 12.5 3 times daily. Qualifiers: Atrial fibrillation type: unspecified Qualified Code(s): I48.91 - Unspecified atrial fibrillation (10) HTN (hypertension): Impression: Reportedly has a history of hypertension, but is only on beta-raheem prior to this hospitalization. Shock as above. - Resuming beta-raheem predominantly for A-fib as above. - Noted otherwise remained normotensive, no need for further antihypertensives. Could consider MRA or SGLT2i for HFrEF.Would defer to outpatient management Qualifiers: Hypertension type: unspecified Qualified Code(s): I10 - Essential (primary) hypertension (11) Diabetes mellitus: Impression: Seemingly diet controlled. Last A1c of 5.1%. - Monitor off sliding scale insulin at this time. Qualifiers: Diabetes mellitus type: type 2 Diabetes mellitus custodial insulin use: without custodial use Diabetes mellitus complication status: without complication Qualified Code(s): E11.9 - Type 2 diabetes mellitus without complications (12) Cerebrovascular accident (CVA): Impression: With persistent and baseline left-sided deficits and left upper extremity contracture. On Keppra as above. Not on ASA or statin historically. - Consider starting on DOAC and statin for secondary prevention when she clinically stabilizes Qualifiers: CVA mechanism: thrombosis Laterality of affected vessel: right P recerebral and cerebral artery: middle cerebral artery Qualified Code(s): I 63.311 - Cerebral infarction due to thrombosis of right middle cerebral artery
[2025-05-05] MEDS: FUROSEMIDE 20 MG TABLET JT SCH (13:11)
[2025-05-06 04:33] LABS: HCT - HEMATOCRIT 26.9 % (37.0-47.0); HGB - HEMOGLOBIN 8.1 g/dL (12.0-16.0); MEAN PLATELET VOLUME 9.4 fL (7.9-10.8); NRBC ABSOLUTE COUNT (AUTO) 0.00 x10^3/uL; NUCLEATED RED BLOOD CELLS AUTO 0.0 /100WBC; PLT - PLATELET COUNT 211 10^3/uL (130-450); RED CELL DISTRIBUTION WIDTH 18.6 % (12.0-15.0)
[2025-05-06 04:49] LABS: BUN - BLOOD UREA NITROGEN 29.0 mg/dL (6-20); CARBON DIOXIDE - CO2 24.0 mmol/L (21-32); CREATININE 0.6 mg/dL (0.6-1.3); GFR - MDRD 100.0 (>89)
[2025-05-06 06:03] LABS: VBG PH 7.435 (7.31-7.41)
--- NOTE | 2025-05-06 08:00 | PROVIDER PROGRESS NOTE ---
Subjective Prog Note Date Prog Note Date: 05/06/25 Prog Note Time: 07:56 Subjective Subjective: Wrist continue to have significant pain in her abdomen. She additionally developed a leukocytosis overnight. She is not hypoxemic, but she does have tachypnea. She is not acidotic. Patient with new leukocytosis this morning. Her blood pressures are been softer. Her MAP is 60-65. Her drains do not look particularly concerning. Her abdomen is diffusely tender but soft. Chest x-ray was obtained and revealed chest x-ray was obtained to interrogate for any infectious source. Pending final read on the chest x-ray, but no obvious focal consolidations, possibly right lower quadrant. However this did reveal that she has evident pneumoperitoneum. Discussed with surgery, who were graciously able to come to bedside. They were able to discuss with family, and the plan will be for second ex lap later today. She has been started on Zosyn. Giving 1 bolus of IV fluids, but if her pressures continue to deteriorate, have ordered Levophed to be titrated up. Recall that historically when she got multiple fluid boluses, she became quite volume overloaded in the setting of her heart failure. Denies fevers or chills, dyspnea, nausea or vomiting. She has mounting abdominal pain that started sometime last night. Does not recall any particular episode. Current Medications Current Medications Current Medications: Current Medications Generic Name Dose Route Start Last Admin Trade Name Freq PRN Reason Stop Dose Admin Furosemide 20 mg 05/05/25 13:00 05/05/25 13:11 Furosemide 20 Mg Tablet JT 20 mg DAILY CINDY Administration Heparin Sodium (Porcine) 5,000 unit 05/04/25 09:00 05/05/25 20:59 Heparin 5,000 Unit/Ml Vial SUBQ 5,000 unit BID CINDY Administration Hydromorphone HCl 0.5 mg 04/30/25 18:29 05/06/25 05:28 Hydromorphone 0.5 Mg/0.5 Ml Syringe IVP 0.5 mg Q6HR PRN Administration Severe Pain (Level 7-10) Fluconazole 100 mls @ 100 mls/hr 04/26/25 18:00 05/05/25 19:25 Diflucan 200 Mg/100 Ml IV Infused Q24H CINDY Infusion Acetaminophen 1,000 mg in 100 mls @ 400 mls/hr 04/27/25 12:00 05/06/25 04:09 Acetaminophen IV 400 mls/hr Q8H CINDY Administration Levetiracetam 500 mg 05/04/25 09:29 05/05/25 20:59 Levetiracetam 500 Mg/5 Ml Udc JT 500 mg BID CINDY Administration Metoprolol Tartrate 12.5 mg 05/04/25 08:15 05/06/25 05:28 Metoprolol Tartrate 25 Mg Tablet JT 12.5 mg TID CINDY Administration Ondansetron HCl 4 mg 04/26/25 17:08 Ondansetron Odt 4 Mg Tablet TL Q6HR PRN Nausea / Vomiting Ondansetron HCl 4 mg 04/26/25 17:08 Ondansetron 4 Mg/2 Ml Vial IVP Q6HR PRN Nausea / Vomiting Oxycodone HCl 5 mg 05/04/25 08:13 05/06/25 04:10 Oxycodone 5 Mg Tablet FT 5 mg Q4HR PRN Administration Moderate Pain (Level 4-6) Pantoprazole Sodium 40 mg 04/26/25 21:00 05/05/25 20:59 Pantoprazole 40 Mg Vial IVP 40 mg BID CINDY Administration Polyethylene Glycol 17 gm 04/29/25 10:32 04/29/25 17:05 Polyethylene Glycol 3350 17 Gm Packet JT 17 gm DAILY PRN Administration Bowel Protocol Simethicone 80 mg 05/04/25 08:12 05/06/25 07:54 Simethicone 40 Mg/0.6 Ml 30 Ml Bottle JT 80 mg Q6HR PRN Administration Gas Sodium Chloride 10 ml 04/26/25 17:08 05/05/25 22:58 Sodium Chloride Flush 0.9% 10 Ml Syringe IVP 10 ml 0100,0900,1700 CINDY Administration Sodium Chloride 10 ml 04/26/25 17:08 05/05/25 04:20 Sodium Chloride Flush 0.9% 10 Ml Syringe IVP 10 ml PRN PRN Administration NEEDED PER PROVIDER ORDERS Zinc Oxide 113 gm 04/27/25 04:26 04/27/25 04:42 Cod Liver Oil/Zinc Oxide 113 Gm Tube TOP 1 applic PRN PRN Administration Skin Care Objective Vital Signs/Intake & Output Reviewed Vital Signs: Yes Vital Signs: Vital Signs x48h Temp Pulse Pulse Resp BP BP Pulse Ox 05/06/25 07:00 37.1 C 60 36 H 95/56 L 95 05/06/25 06:00 37.3 C 61 25 H 105/56 L 95 05/06/25 05:28 60 110/63 05/06/25 05:00 37.4 C 63 31 H 110/63 95 05/06/25 04:00 37.5 C 60 25 H 123/61 97 05/06/25 03:00 37.5 C 60 23 100/58 L 98 05/06/25 02:00 37.5 C 60 28 H 111/57 L 96 05/06/25 01:00 37.5 C 60 24 105/59 L 96 05/06/25 00:00 37.6 C 60 24 107/62 97 Intake & Output: Intake & Output 05/03/25 05/04/25 05/05/25 05/06/25 23:59 23:59 23:59 23:59 Intake Total 3549 / 3549 2432 / 2432 2501 / 2501 367 / 367 Output Total 1676 / 1676 1660 / 1660 2646 / 2646 537 / 537 Balance 1873 / 1873 772 / 772 -145 / -145 -170 / -170 Weight (kg) 50 kg 50.5 kg 51.5 kg 51 kg Objective Comments/Other: GEN: No acute distress. Alert and oriented. Family at bedside HEENT: NC/AT, normal appearance of external ears and nose. Hearing baseline. Cardiac: Irregular rhythm, rate controlled. No JVD. Euvolemic. Pulm: Diffuse rales in the lungs. Having occasional "grunting" breaths. No cough. Abdomen: Soft, nondistended. Tender diffusely throughout the abdomen. No guarding DEMETRIA drain on the right with serosanguineous drainage. DEMETRIA drain on the left with serous drainage. G-tube and J-tube in place without surrounding erythema. Surgical incisions without surrounding erythema Extremities: Chronic left-sided deficits, and left upper extremity contracture. Neuro: Face symmetric, CN II through XII intact grossly. Chronic and stable left-sided deficits. Psych: Mood euthymic. Affect normal. Lab Results 05/06/25 04:21 05/06/25 04:21 Other Labs: Lab Results x24hrs 05/06/25 Range/Units 04:21 WBC 18.3 H (4.8-10.8) x10^3/uL RBC 3.09 L (4.20-5.40) 10^6/uL Hgb 8.1 L (12.0-16.0) g/dL Hct 26.9 L (37.0-47.0) % MCV 87.1 (81.0-99.0) fL MCH 26.2 L (27.0-31.0) pg MCHC 30.1 L (32.0-36.0) g/dL RDW 18.6 H (12.0-15.0) % Plt Count 211 (130-450) 10^3/uL MPV 9.4 (7.9-10.8) fL Neut # (Auto) 16.3 H (1.5-6.6) 10^3/uL Lymph # (Auto) 1.0 L (1.5-3.5) 10^3/uL [place] # (Auto) 0.6 (0.0-1.0) 10^3/uL Eos # (Auto) 0.2 (0.0-0.7) 10^3/uL Baso # (Auto) 0.1 (0.0-0.1) 10^3/uL Absolute Nucleated RBC 0.00 x10^3/uL Nucleated RBC % 0.0 /100WBC VBG pH 7.435 H (7.31-7.41) Ionized Calcium 1.13 (1.09-1.30) mmol/L Sodium 129 L (135-145) mmol/L Potassium 4.9 H (3.5-4.5) mmol/L Chloride 102 (101-111) mmol/L Carbon Dioxide 24 (21-32) mmol/L Anion Gap 3.0 L (6-13) BUN 29 H (6-20) mg/dL Creatinine 0.6 (0.6-1.3) mg/dL Estimated GFR (MDRD) 100 (>89) Glucose 130 H (74-104) mg/dL Calcium 7.2 L (8.5-10.3) mg/dL Phosphorus 4.2 (2.5-5.0) mg/dL Magnesium 2.0 (1.7-2.3) mg/dL Assessment/Plan Problem List (1) Perforated chronic gastric ulcer: Impression: She is concerned for new perforation. Worsening abdominal pain overnight from 05/05-05/06. New mounting leukocytosis. Found to have free air under diaphragm which has not been present on previous chest x-rays. Family agrees that they want to proceed with aggressive measures. - Manage shock as below - Started on Zosyn again, had been discontinued 05/03 - Stopping tube feeds, G-tube to gravity - Continues on Diflucan through 05/10 - Pain management escalated with Dilaudid every 2 hours - Likely Ex lap later today - Patient is full code (2) Status post exploratory laparotomy: (3) Complete gastric outlet obstruction: (4) Jejunostomy tube present: (5) Gastrostomy tube present: (6) Shock: Impression: Recurrent shock, suspect this is distributive. Mounting white blood cell count. Her hemoglobin remained stable. No signs of obvious bleeding. - Antibiotics as above - Hold other vasoactive medications, hold Lasix today - Will give 500 mL liter fluid bolus - If not responsive to 500 mL liter bolus, will start on norepinephrine - Surgery as above (7) HFrEF (heart failure with reduced ejection fraction): Impression: Stable. Tachypneic, but on room air. Interstitial fluid on her chest x-ray. Patient is somewhat more edematous in her extremities, but not frankly volume overloaded. She has had tenuous fluid shifts throughout this hospitalization and received a lot of fluid with her surgery. She became volume overloaded on 05/01 requiring IV Lasix. An echo was performed at that time which revealed an EF of 45 to 50% she also has tricuspid, mitral regurgitation with moderate pulmonary hypertension. - Free water through J-tube as above - Consideration to start her on MRA for GDMT, however she has elevated potassium - Holding furosemide as above (8) Acute metabolic encephalopathy: Impression: Resolved. Patient Continues to mentate appropriately. Patient became agitated on 04/30 requiring Ativan which caused somnolence and may have contributed to some initial soft pressures. Code stroke was called but no intracranial hemorrhage or new focal deficits noted. She has a history of prior CVA as below. There is extensive encephalomalacia. Teleneurology recommended starting Keppra with prior hospitalist and now she is on 500 mg twice daily. Per teleneurology recommendations, I EEG can be considered if she remained persistently encephalopathic, however she is clearing. No focal neurologic deficits. - Continue Keppra 500 mg twice daily - Treating other medical issues as above and below (9) Afib: Impression: Rate controlled currently. On telemetry, she has had some runs of RVR. Normally on Eliquis and metoprolol Succinate 25 mg. Metoprolol succinate cannot be given through her J-tube. She has a pacemaker with pacer leads apparent on telemetry and previous EKGs. Working appropriately. - On SQH for VTE prophylaxis, Held perioperatively. Will hold off on resuming Eliquis until she clinically stabilizes. - Metoprolol to tartrate 12.5 3 times daily. Qualifiers: Atrial fibrillation type: unspecified Qualified Code(s): I48.91 - Unspecified atrial fibrillation (10) HTN (hypertension): Impression: Reportedly has a history of hypertension, but is only on beta-raheem prior to this hospitalization. Shock as above. - Reasonable to continue beta-raheem for rate control, held this morning. Qualifiers: Hypertension type: unspecified Qualified Code(s): I10 - Essential (primary) hypertension (11) Diabetes mellitus: Impression: Seemingly diet controlled. Last A1c of 5.1%. - Monitor off sliding scale insulin at this time. Qualifiers: Diabetes mellitus type: type 2 Diabetes mellitus shelter insulin use: without intermediate teacher use Diabetes mellitus complication status: without complication Qualified Code(s): E11.9 - Type 2 diabetes mellitus without complications (12) Cerebrovascular accident (CVA): Impression: With persistent and baseline left-sided deficits and left upper extremity contracture. On Keppra as above. Not on ASA or statin historically. - Consider starting on DOAC and statin for secondary prevention when she clinically stabilizes Qualifiers: CVA mechanism: thrombosis Laterality of affected vessel: right P recerebral and cerebral artery: middle cerebral artery Qualified Code(s): I 63.311 - Cerebral infarction due to thrombosis of right middle cerebral artery
[2025-05-06] MEDS ORDERED: MORPHINE 2 MG/ML CARPUJECT IVP PRN (08:13)
[2025-05-06] MEDS: LACTATED RINGERS 500 ML IV ONE ×2 (08:22→12:17)
[2025-05-06] MEDS: HYDROmorphone 0.5 MG/0.5 ML SYRINGE IVP PRN ×4 (08:26→22:32)
[2025-05-06] MEDS: PIPERACILLIN/TAZOBACTAM 3.375 GM in SODIUM CHLORIDE 0.9% MINIBAG 100 ML IV ONE (08:34)
--- NOTE | 2025-05-06 09:47 | XRAY Report ---
PROCEDURE: XR Chest 1V INDICATIONS: Leukocytosis, tachypnea TECHNIQUE: One view of the chest was acquired. COMPARISON: 05/05/2025 FINDINGS: Surgical changes and devices: Left cardiac pacemaker. Right central venous catheter is unchanged in positioning. Surgical skin eleno noted along the midline abdomen. Lungs and pleura: Diffuse interstitial prominence not significantly changed. Likely small bilateral pleural effusions. No new consolidation seen. No pneumothorax. Mediastinum: Mediastinal contours appear stable. Heart size is enlarged. Bones and chest wall: No suspicious bony lesions. Overlying soft tissues appear unremarkable. Subdiaphragmatic free air likely related to recent surgery. IMPRESSION: Stable positioning of support equipment. Cardiomegaly with findings consistent with pulmonary edema. This is not significantly changed. No new focal consolidations. Postsurgical changes of the abdomen with subdiaphragmatic free air likely related to recent surgery. Reviewed by: Da Booth MD on 05/06/2025 9:43 AM PDT Approved by: Da Booth MD on 05/06/2025 9:43 AM PDT Station ID: [id number]
--- NOTE | 2025-05-06 11:09 | PROVIDER PROGRESS NOTE ---
Progress Note Progress Note Progress Note: General Surgery Pre-op Note Danielle became ill last night with the sudden onset of severe abdominal pain associated with mild hypotension. A CXR was obtained and found to have free intra-abdominal air, a new finding compared to yesterday's film. There is no increased output from either DEMETRIA drain and the gastrostomy and feeding jejunostomy tubes are functioning. Her abdomen is markedly tender to palpation copnsistent with peritoneal irritation. Given her deteriorating clinical status and the new finding of pneumoperitoneum, I discussed the options for operative vs non-operative therapy with the patient and her family. They understand that she is critically ill and that her ultimate outcome is grave regardless of the choice. They have asked that I proceed with emergency exploratory laparotomy to attempt identification and repair of the source of her pneumoperitoneum. Labs: WBC 18K; H&H 8.1/26.9; Plt 211K Na 129; K 4.9; BUN 29; Cr 0.6 Consent: Danielle and her son have been counseled for the procedure, it's indications, risks, benefits and expected outcome. We specifically discussed risks associated with anesthesia, bleeding, infection, injury to surrounding structures which may require additional surgery, and the possible need for post-op ventilatory therapy. We also discussed the possible need for a blood transfusion with its risks and benefits. Both Danielle and her son understand the content of our discuss ion and request that we proceed with the procedure as outlined. Magdiel Lehman MD, [facility] General Surgery Service
[2025-05-06] MEDS: PIPERACILLIN/TAZOBACTAM 3.375 GM in SODIUM CHLORIDE 0.9% MINIBAG 100 ML IV SCH (12:15)
[2025-05-06] MEDS ORDERED: LIDOCAINE 1%-EPI 1:100000 20 ML MDV ONE (12:57)
[2025-05-06] MEDS ORDERED: BUPIVACAINE 0.5% PF 10 ML VIAL ONE (12:57)
[2025-05-06] MEDS ORDERED: MIDAZOLAM 2 MG/2 ML VIAL ONE (13:38)
[2025-05-06] MEDS ORDERED: fentaNYL 100 MCG/2 ML VIAL ONE (13:38)
[2025-05-06] MEDS ORDERED: VASOPRESSIN 20 UNIT/ML VIAL ONE (14:18)
--- NOTE | 2025-05-06 15:21 | ANESTHESIA PROCEDURE NOTE ---
Pre-Anesthesia VS, & Labs Diagnosis Surgical Diagnosis:: perforated viscus Procedure Procedure: exploratory laparotomy Vitals Vital Signs: Temp Pulse Resp BP Pulse Ox O2 Flow Rate 35.7 C L 60 25 H 108/65 96 10 05/06/25 13:00 05/06/25 13:00 05/06/25 13:00 05/06/25 13:00 05/06/25 13:00 04/26/25 16:15 NPO NPO: Other Last Food Intake: J tube feeding stopped 6h Is Patient ?: Not Applicable Lab Results Current Lab Results: Laboratory Tests 05/06/25 04:21: WBC 18.3 H, RBC 3.09 L, Hgb 8.1 L, Hct 26.9 L, MCV 87.1, MCH 26.2 L, MCHC 30.1 L, RDW 18.6 H, Plt Count 211, MPV 9.4, Neut # (Auto) 16.3 H, L ymph # (Auto) 1.0 L, [place] # (Auto) 0.6, Eos # (Auto) 0.2, Baso # (Auto) 0.1, Absolute Nucleated RBC 0.00, Nucleated RBC % 0.0, VBG pH 7.435 H, Ionized Calcium 1.13, Sodium 129 L, Potassium 4.9 H, Chloride 102, Carbon Dioxide 24, A nion Gap 3.0 L, BUN 29 H, Creatinine 0.6, Estimated GFR (MDRD) 100, Glucose 130 H, Calcium 7.2 L, Phosphorus 4.2, Magnesium 2.0 05/05/25 04:25: WBC 8.4, RBC 3.08 L, Hgb 8.3 L, Hct 26.5 L, MCV 86.0, MCH 26.9 L , MCHC 31.3 L, RDW 18.9 H, Plt Count 162, MPV 9.1, Neut # (Auto) 6.6, Lymph # (Auto) 1.0 L, [place] # (Auto) 0.4, Eos # (Auto) 0.3, Baso # (Auto) 0.0, Absolute Nucleated RBC 0.00, Nucleated RBC % 0.0, VBG pH 7.377, Ionized Calcium 1.13, S odium 131 L, Potassium 4.9 H, Chloride 105, Carbon Dioxide 22, Anion Gap 4.0 L, BUN 31 H, Creatinine 0.7, Estimated GFR (MDRD) 83 L, Glucose 147 H, Calcium 6.9 L, Phosphorus 4.1, Magnesium 2.1 05/04/25 04:10: WBC 9.5, RBC 3.41 L, Hgb 9.2 L, Hct 28.8 L, MCV 84.5, MCH 27.0, MCHC 31.9 L, RDW 18.8 H, Plt Count 150, MPV 9.3, Neut # (Auto) 8.0 H, Lymph # (Auto) 0.7 L, [place] # (Auto) 0.4, Eos # (Auto) 0.2, Baso # (Auto) 0.0, Absolute Nucleated RBC 0.02, Nucleated RBC % 0.2, VBG pH 7.395, Ionized Calcium 1.13, S odium 134 L, Potassium 4.4, Chloride 107, Carbon Dioxide 21, Anion Gap 6.0, BUN 34 H, Creatinine 0.8, Estimated GFR (MDRD) 72 L, Glucose 142 H, Calcium 7.1 L, Phosphorus 4.3, Magnesium 2.2 05/03/25 11:40: Last Dose Date [id number], Last Dose Time 1337, Vancomycin Trough 30.0 H* 05/03/25 05:00: WBC 11.3 H, RBC 3.50 L, Hgb 9.4 L, Hct 29.3 L, MCV 83.7, MCH 26.9 L, MCHC 32.1, RDW 19.2 H, Plt Count 137, MPV 8.9, Neut # (Auto) 9.6 H, L ymph # (Auto) 0.8 L, [place] # (Auto) 0.3, Eos # (Auto) 0.3, Baso # (Auto) 0.0, Absolute Nucleated RBC 0.02, Nucleated RBC % 0.2, VBG pH 7.397, Ionized Calcium 1.14, Sodium 134 L, Potassium 4.3, Chloride 107, Carbon Dioxide 22, Anion Gap 5.0 L, BUN 38 H, Creatinine 0.9, Estimated GFR (MDRD) 62 L, Glucose 114 H, C alcium 7.3 L, Phosphorus 4.3, Magnesium 2.3, Total Bilirubin 0.7, AST 16, ALT 18, Alkaline Phosphatase 219 H, Total Protein 4.2 L, Albumin 2.1 L, Globulin 2.1, Albumin/Globulin Ratio 1.0 05/02/25 12:00: Carcinoembryonic Ag 1.0 05/02/25 04:55: WBC 11.7 H, RBC 3.59 L, Hgb 9.7 L, Hct 29.8 L, MCV 83.0, MCH 27.0, MCHC 32.6, RDW 18.7 H, Plt Count 153, MPV 10.6, PT 12.0, INR 1.1, APTT 30.0, VBG pH 7.410, Ionized Calcium 1.12, Sodium 136, Potassium 4.5, Chloride 108, Carbon Dioxide 22, Anion Gap 6.0, BUN 36 H, Creatinine 0.9, Estimated GFR (MDRD) 62 L, Glucose 90, Calcium 7.2 L, Phosphorus 4.4, Magnesium 2.5 H 05/01/25 15:46: Hgb 7.9 L, Hct 25.5 L 05/01/25 11:15: WBC 12.2 H, RBC 2.61 L, Hgb 6.7 L*, Hct 22.3 L, MCV 85.4, MCH 25.7 L, MCHC 30.0 L, RDW 21.1 H, Plt Count 151, MPV 9.9, PT 16.9 H, INR 1.5 H, Sodium 136, Potassium 4.5, Chloride 108, Carbon Dioxide 23, Anion Gap 5.0 L, BUN 37 H, Creatinine 0.9, Estimated GFR (MDRD) 62 L, Glucose 136 H, Calcium 7.2 L 05/01/25 08:24: APTT 38.6 H, D-Dimer > 1050.0 H 05/01/25 06:30: RBC Morph Micro Appear 1+ SCHISTOCYTES, Blood Type O POSITIVE, Antibody Screen NEGATIVE, Crossmatch IS Only See Detail 05/01/25 06:30: RBC Morph Micro Appear 1+ ACANTHOCYTES 05/01/25 06:30: WBC 13.8 H, RBC 3.03 L, Hgb 7.8 L, Hct 25.9 L, MCV 85.5, MCH 25.7 L, MCHC 30.1 L, RDW 20.7 H, Plt Count 172, MPV 10.1, Neut # (Auto) Not Reportable, Lymph # (Auto) Not Reportable, [place] # (Auto) Not Reportable, Eos # (Auto) Not Reportable, Baso # (Auto) Not Reportable, Absolute Nucleated RBC Not Reportable, Total Counted 100, Band Neuts % (Manual) 7, Abnorm Lymph % (Manual) 0, Nucleated RBC % Not Reportable, Neutrophils # (Manual) 13.1 H, Lymphocytes # (Manual) 0.3 L, Monocytes # (Manual) 0.4, Eosinophils # (Manual) 0.0, Basophils # (Manual) 0.0, Nucleated RBCs 1, Differential Comment MANUAL DIFFERENTIAL, RBC Morph Micro Appear 4+ ANISOCYTOSIS 05/01/25 05:53: RBC Morph Micro Appear 1+ SCHISTOCYTES, VBG pH 7.402, Ionized Calcium 1.12, Sodium 135, Potassium 4.5, Chloride 108, Carbon Dioxide 22, Anion Gap 5.0 L, BUN 38 H, Creatinine 0.8, Estimated GFR (MDRD) 72 L, Glucose 104, C alcium 6.8 L, Phosphorus 3.7, Magnesium 1.8 05/01/25 05:53: RBC Morph Micro Appear 1+ HYPOCHROMASIA 05/01/25 05:53: RBC Morph Micro Appear 1+ PERICO CELLS 05/01/25 05:53: RBC Morph Micro Appear 1+ OVALOCYTES 05/01/25 05:53: RBC Morph Micro Appear 2+ ACANTHOCYTES 05/01/25 05:53: WBC 13.3 H, RBC 3.10 L, Hgb 8.0 L, Hct 26.3 L, MCV 84.8, MCH 25.8 L, MCHC 30.4 L, RDW 20.8 H, Plt Count 163, MPV 9.0, Neut # (Auto) Not Reportable, Lymph # (Auto) Not Reportable, [place] # (Auto) Not Reportable, Eos # (Auto) Not Reportable, Baso # (Auto) Not Reportable, Absolute Nucleated RBC Not Reportable, Total Counted 100, Band Neuts % (Manual) 0, Abnorm Lymph % (Manual) 0, Nucleated RBC % Not Reportable, Neutrophils # (Manual) 11.8 H, Lymphocytes # (Manual) 0.5 L, Monocytes # (Manual) 0.4, Eosinophils # (Manual) 0.5, Basophils # (Manual) 0.0, Differential Comment MANUAL DIFFERENTIAL, Manual Slide Review Indicated, WBC Morphology NORMAL APPEARANCE, Platelet Estimate NORMAL (130- 450,000), Platelet Morphology NORMAL APPEARANCE, RBC Morph Micro Appear 2+ ANISOCYTOSIS 04/30/25 23:40: VBG pH 7.399, VBG pCO2 35.6 L, VBG pO2 56.8 H, VBG HCO3 22.2 L, VBG Total CO2 23.3 L, VBG O2 Saturation 89.0 H, VBG Base Excess -2.8 L, Lactic Acid 2.4 H 04/30/25 22:47: RBC Morph Micro Appear 2+ HYPOCHROMASIA, PT 21.5 H, INR 2.0 H, S odium 132 L, Potassium 4.8 H, Chloride 105, Carbon Dioxide 21, Anion Gap 6.0, B UN 38 H, Creatinine 0.8, Estimated GFR (MDRD) 72 L, Glucose 117 H, Calcium 6.7 L , Total Bilirubin 0.9, AST 31, ALT 16, Alkaline Phosphatase 111, B-Natriuretic Peptide 651 H, Total Protein 3.9 L, Albumin 1.9 L, Globulin 2.0 L, Albumin/Globulin Ratio 1.0 04/30/25 22:47: RBC Morph Micro Appear 3+ ACANTHOCYTES 04/30/25 22:47: WBC 11.3 H, RBC 3.32 L, Hgb 8.7 L, Hct 28.9 L, MCV 87.0, MCH 26.2 L, MCHC 30.1 L, RDW 20.5 H, Plt Count 152, MPV 10.3, Neut # (Auto) 10.1 H, Lymph # (Auto) 0.5 L, [place] # (Auto) 0.4, Eos # (Auto) 0.1, Baso # (Auto) 0.0, Absolute Nucleated RBC 0.03, Band Neuts % (Manual) Not Reportable, Abnorm Lymph % (Manual) Not Reportable, Nucleated RBC % 0.3, Neutrophils # (Manual) Not Reportable, Lymphocytes # (Manual) Not Reportable, Monocytes # (Manual) Not Reportable, Eosinophils # (Manual) Not Reportable, Basophils # (Manual) Not Reportable, Differential Comment MANUAL=AUTO DIFF, Manual Slide Review Indicated, Platelet Estimate NORMAL (130-450,000), Platelet Morphology NORMAL APPEARANCE, RBC Morph Micro Appear 2+ ANISOCYTOSIS 04/30/25 08:58: Smear Path Review SEE SEPARATE REPORT 04/30/25 07:42: RBC Morph Micro Appear 3+ POIKILOCYTOSIS, VBG pH 7.432 H, Ionized Calcium 1.09, Sodium 134 L, Potassium 5.1 H, Chloride 108, Carbon Dioxide 21, Anion Gap 5.0 L, BUN 40 H, Creatinine 0.7, Estimated GFR (MDRD) 83 L , Glucose 140 H, Calcium 7.3 L, Phosphorus 3.2, Magnesium 2.1, Total Bilirubin 0.8, AST 14, ALT 8 L, Alkaline Phosphatase 78, Total Protein 4.5 L, Albumin 2.3 L, Globulin 2.2, Albumin/Globulin Ratio 1.0, Triglycerides 58 04/30/25 07:42: RBC Morph Micro Appear 2+ ANISOCYTOSIS 04/30/25 07:42: RBC Morph Micro Appear 2+ OVALOCYTES 04/30/25 07:42: RBC Morph Micro Appear 2+ SCHISTOCYTES 04/30/25 07:42: RBC Morph Micro Appear 4+ PERICO CELLS 04/30/25 07:42: WBC 13.9 H, RBC 4.20, Hgb 10.8 L, Hct 37.2, MCV 88.6, MCH 25.7 L , MCHC 29.0 L, RDW 19.9 H, Plt Count 196, MPV 9.8, Neut # (Auto) Not Reportable, Lymph # (Auto) Not Reportable, [place] # (Auto) Not Reportable, Eos # (Auto) Not Reportable, Baso # (Auto) Not Reportable, Absolute Nucleated RBC Not Reportable, Total Counted 100, Band Neuts % (Manual) 3, Abnorm Lymph % (Manual) 0, Nucleated RBC % Not Reportable, Neutrophils # (Manual) 13.1 H, Lymphocytes # (Manual) 0.6 L, Monocytes # (Manual) 0.3, Eosinophils # (Manual) 0.0, Basophils # (Manual) 0.0, Differential Comment MANUAL DIFFERENTIAL, Manual Slide Review Indicated, WBC Morphology NORMAL APPEARANCE, Platelet Estimate NORMAL (130-450,000), Platelet Morphology NORMAL APPEARANCE, RBC Morph Micro Appear 4+ ACANTHOCYTES 04/29/25 08:29: Last Dose Date 04/28/25, Last Dose Time 2133, Vancomycin Trough 20.4 04/29/25 06:16: POC Whole Bld Glucose 154 04/29/25 04:30: RBC Morph Micro Appear 1+ OVALOCYTES, VBG pH 7.399, Ionized Calcium 1.13, Sodium 132 L, Potassium 4.3, Chloride 105, Carbon Dioxide 21, Anion Gap 6.0, BUN 40 H, Creatinine 0.8, Estimated GFR (MDRD) 72 L, Glucose 147 H, Calcium 7.7 L, Phosphorus 3.6, Magnesium 2.4 H 04/29/25 04:30: RBC Morph Micro Appear 1+ PERICO CELLS 04/29/25 04:30: RBC Morph Micro Appear 1+ ACANTHOCYTES 04/29/25 04:30: RBC Morph Micro Appear 1+ ANISOCYTOSIS 04/29/25 04:30: WBC 20.5 H, RBC 4.05 L, Hgb 10.5 L, Hct 36.3 L, MCV 89.6, MCH 25.9 L, MCHC 28.9 L, RDW 19.0 H, Plt Count 211, MPV 10.0, Neut # (Auto) Not Reportable, Lymph # (Auto) Not Reportable, [place] # (Auto) Not Reportable, Eos # (Auto) Not Reportable, Baso # (Auto) Not Reportable, Absolute Nucleated RBC Not Reportable, Total Counted 100, Band Neuts % (Manual) 0, Abnorm Lymph % (Manual) 0, Nucleated RBC % Not Reportable, Neutrophils # (Manual) 19.5 H, Lymphocytes # (Manual) 0.6 L, Monocytes # (Manual) 0.4, Eosinophils # (Manual) 0.0, Basophils # (Manual) 0.0, Differential Comment MANUAL DIFFERENTIAL, Manual Slide Review Indicated, WBC Morphology NORMAL APPEARANCE, Platelet Estimate NORMAL (130- 450,000), Platelet Morphology NORMAL APPEARANCE, RBC Morph Micro Appear 1+ HYPOCHROMASIA 04/29/25 00:28: POC Whole Bld Glucose 136 04/28/25 18:06: POC Whole Bld Glucose 166 04/28/25 11:48: POC Whole Bld Glucose 131 04/28/25 06:04: POC Whole Bld Glucose 143 04/28/25 04:28: WBC 15.4 H, RBC 3.80 L, Hgb 10.1 L, Hct 33.0 L, MCV 86.8, MCH 26.6 L, MCHC 30.6 L, RDW 18.5 H, Plt Count 208, MPV 9.6, Neut # (Auto) 14.1 H, L ymph # (Auto) 0.7 L, [place] # (Auto) 0.5, Eos # (Auto) 0.0, Baso # (Auto) 0.0, Absolute Nucleated RBC 0.00, Nucleated RBC % 0.0, VBG pH 7.378, Ionized Calcium 1.13, Sodium 133 L, Potassium 4.1, Chloride 105, Carbon Dioxide 22, Anion Gap 6.0, BUN 29 H, Creatinine 0.9, Estimated GFR (MDRD) 62 L, Glucose 158 H, Calcium 7.8 L, Phosphorus 3.2, Magnesium 2.4 H, Total Bilirubin 0.7, AST 17, ALT 8 L, A lkaline Phosphatase 24 L, Total Protein 4.6 L, Albumin 2.7 L, Globulin 1.9 L, Albumin/Globulin Ratio 1.4, Prealbumin 6 L, Triglycerides 195, Vitamin B12 763 04/27/25 23:56: POC Whole Bld Glucose 154 04/27/25 18:46: POC Whole Bld Glucose 108 04/27/25 18:41: WBC 14.0 H, RBC 3.78 L, Hgb 9.7 L, Hct 32.0 L, MCV 84.7, MCH 25.7 L, MCHC 30.3 L, RDW 18.0 H, Plt Count 215, MPV 9.5 04/27/25 17:12: Potassium 4.2 04/27/25 14:12: Magnesium 2.8 H 04/27/25 12:34: POC Whole Bld Glucose 152 04/27/25 05:32: WBC 7.6, RBC 3.83 L, Hgb 10.0 L, Hct 33.0 L, MCV 86.2, MCH 26.1 L, MCHC 30.3 L, RDW 17.6 H, Plt Count 235, MPV 9.1, Neut # (Auto) 7.1 H, Lymph # (Auto) 0.3 L, [place] # (Auto) 0.2, Eos # (Auto) 0.0, Baso # (Auto) 0.0, Absolute Nucleated RBC 0.00, Nucleated RBC % 0.0, VBG pH 7.330, Ionized Calcium 1.11, Sodium 135, Potassium 3.7, Chloride 106, Carbon Dioxide 22, Anion Gap 7.0, BUN 23 H, Creatinine 0.7, Estimated GFR (MDRD) 83 L, Glucose 190 H, Estimat Average Glucose 100, Hemoglobin A1c % 5.1, Calcium 7.7 L, Phosphorus 3.6, Magnesium 1.3 L, Total Bilirubin 1.3 H, AST 17, ALT 8 L, Alkaline Phosphatase 25 L, Total Protein 4.9 L, Albumin 3.0 L, Globulin 1.9 L, Albumin/Globulin Ratio 1.6, Lipase 33 04/27/25 00:20: POC Whole Bld Glucose 139 04/26/25 22:19: WBC 4.2 L, RBC 2.84 L, Hgb 6.9 L*, Hct 25.1 L, MCV 88.4, MCH 24.3 L, MCHC 27.5 L, RDW 19.4 H, Plt Count 181, MPV 10.1, Neut # (Auto) 3.7, L ymph # (Auto) 0.3 L, [place] # (Auto) 0.2, Eos # (Auto) 0.0, Baso # (Auto) 0.0, Absolute Nucleated RBC 0.00, Nucleated RBC % 0.0, Sodium 135, Potassium 3.7, Chloride 109, Carbon Dioxide 19 L, Anion Gap 7.0, BUN 22 H, Creatinine 0.5 L, Estimated GFR (MDRD) 123, Glucose 153 H, Calcium 7.2 L 04/26/25 17:59: POC Whole Bld Glucose 145 04/26/25 16:05: POC Whole Bld Glucose 133 04/26/25 11:11: Lactic Acid 1.5, C-Reactive Protein < 0.5, Prealbumin 11 L, Blood Type O POSITIVE, Antibody Screen NEGATIVE, Crossmatch IS Only See Detail 04/26/25 07:52: WBC 9.3, RBC 3.76 L, Hgb 9.0 L, Hct 32.4 L, MCV 86.2, MCH 23.9 L , MCHC 27.8 L, RDW 19.4 H, Plt Count 323, MPV 9.1, Neut # (Auto) 8.4 H, Lymph # (Auto) 0.5 L, [place] # (Auto) 0.3, Eos # (Auto) 0.0, Baso # (Auto) 0.0, Absolute Nucleated RBC 0.00, Nucleated RBC % 0.0, Sodium 139, Potassium 3.7, Chloride 102, Carbon Dioxide 26, Anion Gap 11.0, BUN 28 H, Creatinine 0.7, Estimated GFR (MDRD) 83 L, Glucose 147 H, Calcium 9.4, Total Bilirubin 0.6, AST 12, ALT 5 L, Alkaline Phosphatase 48, Total Protein 6.6, Albumin 4.0, Globulin 2.6, Albumin/Globulin Ratio 1.5, Lipase < 10 L, Blood Type Recheck O POSITIVE 05/06/25 04:21 05/06/25 04:21 Meds/Allgy Home Medications Ambulatory Orders Medication Instructions Recorded Confirmed apixaban 5 mg tablet (Eliquis) 5 mg PO BID 05/17/24 lisinopril 2.5 mg tablet 2.5 mg PO DAILY 04/26/25 metoprolol succinate 25 mg 25 mg PO DAILY 04/27/25 tablet,extended release 24 hr Allergies Allergies Allergy/AdvReac Type Severity Reaction Status Date / Time morphine Allergy Rash Verified 04/26/25 07:21 sulfamethoxazole (From Allergy Rash Verified 04/26/25 07:21 ) trimethoprim (From ) Allergy Rash Verified 04/26/25 07:21 [facility] Active Problems All Active Problems HFrEF (heart failure with reduced ejection fraction) (Acute) Fluid overload (Acute) Acute metabolic encephalopathy (Acute) Sacral decubitus ulcer (Acute) Complete gastric outlet obstruction (Acute) Jejunostomy tube present (Acute) Gastrostomy tube present (Acute) Status post exploratory laparotomy (Acute ~04/26/25) Perforated chronic gastric ulcer (Acute) Shock (Acute) SMAS (superior mesenteric artery syndrome) (Acute) Lumbar contusion (Acute) Cerebrovascular accident (CVA) (Acute ~2018) Medical History Medical History HLD (hyperlipidemia) HTN (hypertension) Afib History of pacemaker Social History Social History Smoking Status: Former smoker If you are a former smoker, when did you quit? (Date/Year): 2018 Number of Years Smoked: 15 Second hand tobacco smoke exposure: No Do you dip or chew tobacco?: No Do you vape?: No Living arrangement: At home Living Condition: With spouse/s.o. Level: Dependent Home Mobility Equipment: Cane Do you feel safe in your home environment?: Yes History of physical, verbal, emotional, or financial abuse?: No ETOH Use: None Are you sexually active?: No POLST Patient has POLST: No POLST CPR Status: Attempt Resuscitation (CPR) Level of Medical Intervention: Full Treatment Anesthesia Exam (Expanded) Exam General: Alert, Oriented x3 and Moderate distress Dental: WNL Mouth Openin Fingerbreadth Neck Mobility: Reduced Mallampati classification: I Thyromental Distance: 4-6 cm Respiratory: Lungs clear Cardiovascular: Other (100% v paced) Neurological: Other (L sided deficit from previous CVA) Exam Exam Vital Signs: Vital Signs x48h Temp Pulse Resp BP Pulse Ox 05/06/25 13:00 35.7 C L 60 25 H 108/65 96 05/06/25 12:00 35.8 C L 60 26 H 97/58 L 100 05/06/25 11:00 35.9 C L 60 30 H 99/64 93 05/06/25 10:00 36.1 C L 60 37 H 94/63 99 05/06/25 09:15 69 16 96/64 95 05/06/25 09:00 68 19 84/59 L 96 05/06/25 08:30 60 22 105/73 94 05/06/25 08:00 37 C 64 29 H 88/62 L 97 Plan Problem List (1) Perforated chronic gastric ulcer: (2) Status post exploratory laparotomy: (3) Complete gastric outlet obstruction: (4) Jejunostomy tube present: (5) Gastrostomy tube present: (6) Shock: (7) HFrEF (heart failure with reduced ejection fraction): (8) Acute metabolic encephalopathy: (9) Afib: Qualifiers: Atrial fibrillation type: unspecified Qualified Code(s): I48.91 - Unspecified atrial fibrillation (10) HTN (hypertension): Qualifiers: Hypertension type: unspecified Qualified Code(s): I10 - Essential (primary) hypertension (11) Diabetes mellitus: Qualifiers: Diabetes mellitus type: type 2 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: without retirement use Diabetes mellitus complication status: without complication Qualified Code(s): E11.9 - Type 2 diabetes mellitus without complications (12) Cerebrovascular accident (CVA): Qualifiers: CVA mechanism: thrombosis Laterality of affected vessel: right P recerebral and cerebral artery: middle cerebral artery Qualified Code(s): I 63.311 - Cerebral infarction due to thrombosis of right middle cerebral artery Plan [id number] s/p 04/26/2025 emergent exploratory laparotomy for perforated pyloric ulcer, intraoperatively suspicious for malignancy due to history of weight loss and intraoperative invovlement of the hepatic ligament, though biopsies have returned as BENIGN. ExLap included biopsies of perforated ulcer, zachary patch of perforation, stapled pyloric exclusion, placement of venting gastrostomy tube and feeding jejunostomy tube. No gastric biopsies for H pylori but stool h pylori negative. CEA normal. H/o Afib on Eliquis with pacemaker, Echo this admission with EF 45-50%. Hospital course has been notable for tenuous volume status between significant third spacing and edema/anasarca as well as intravascular hypovolemia. On and off pressors during the first week. Transient AMS/delirium after ativan concerning for recurrent CVA, but imaging demonstrated only her old CVA lesion. Significant blood loss from RIJ CVC requiring multiple blood products to correct the resultant coagulopathy/hemolysis. All of these things now managaged and overall seems to be heading towards a steady state. POD8 - Pain overall controlled, no changes (IV or liquid meds via J Tube) - albumin boluses with lasix PRN, goal to dc andrews soon (per IM) - Jejunostomy feeds at goal. Is having brown BM now, can use miralax in [facility]WF PRN. - OK to have clear liquids for comfort sparingly, they will drain via Gastrostomy tube, which should remain to gravity drainage bag. - Daily CBC/Chem - WBC now normalized. Completed 1 week vanc/zosyn. Plan 14d fluconazole. Blood cx with no growth, abdominal cx with yeast growth only. - No sign of leak by DEMETRIA drain contents. (LEFT DEMETRIA in LEFT colic gutter, monitoring for G tube or J tube leak; RIGHT DEMETRIA is posterior to zachary patch and in RUQ, monitoring for recurrent leak from perforation) - continue DEMETRIA drains until consistently mobilizing, tolerating J tube feeds, and PO sips/clears for comfort with with no leaks and clinical stability. Plan to remove prior to DC to SNF. - On heparin ppx, resume home Eliquis per IM - continue working with PT/SW for dc planning. 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 - Remove midline eleno --> steristrips prn before discharge. - continue protonix BID on discharge termite control service representative plan: repeat EGD in 3-6m to assess opening of pyloric exclusion and or ulcer regression. Repeat biopsies of mass/h pylori (is pyloric exclusion is open). Consider PET for confirmation of no malignancy. If pylorus opens on its own, will be able to resume PO feeds and DC G/J. If pylorus does not reopen, goal to reoperate for transition to G-J anastomosis once she has rehab'd well. Signing out to Dr. Lehman for surgical coverage tomorrow. Ro Odell DO, FACS General Surgeon, [facility] Plan Anesthesia Type: General Consent for Procedure(s) Verified and Reviewed: Yes Code Status: Attempt Resuscitation ASA Classification ASA classification: 4-Incapacitating disease Is this case an emergency?: Yes
[2025-05-06] MEDS ORDERED: ATROPINE ABBOJECT 1 MG/10 ML SYRINGE IVP PRN (15:25)
[2025-05-06] MEDS ORDERED: ePHEDrine 50 MG/ML VIAL IVP PRN (15:25)
[2025-05-06] MEDS ORDERED: HYDROmorphone 0.5 MG/0.5 ML SYRINGE IVP PRN (15:25)
[2025-05-06] MEDS ORDERED: fentaNYL 100 MCG/2 ML VIAL IVP PRN (15:25)
[2025-05-06] MEDS ORDERED: ONDANSETRON 4 MG/2 ML VIAL IVP PRN (15:25)
[2025-05-06] MEDS ORDERED: NALOXONE 0.4 MG/ML VIAL IVP PRN (15:25)
[2025-05-06] MEDS ORDERED: SUGAMMADEX 200 MG/2 ML VIAL IVP ONE (15:33)
--- NOTE | 2025-05-06 16:06 | MISCELLANEOUS PROVIDER NOTE ---
Miscellaneous Provider Note - Note: Brief note, patient taken to the OR, found to have a leak, see op report. Rep aired. Recommendation is to no longer have tube feeds. - Will start TPN tomorrow through central line, discussed with pharmacy. - Start maintenance fluids tonight - Continue pressors, wean as tolerated.
--- NOTE | 2025-05-06 16:15 | OPERATIVE REPORT ---
Operative Report General Admit Date: 04/26/25 Procedure Data: Operation Date: 05/06/25 12:30 Proposed Procedures p Exploratory Laparotomy(Not Applicable) - Magdiel Lehman MD Actual Procedures p exploratory laparotomy, oversew duodenal ulcer, washout(Not Applicable) - Magdiel Lehman MD Pre-Op Diagnosis: acute abdomen, free air Anesthesia Type General Case Staff Anesthesia Provider: Shahida Livingston Case Times Procedure Start: 05/06/25 14:34 Procedure End: 05/06/25 15:42 Time out: 05/06/25 14:33 Other Other Information/Narrative: PROCEDURE DATE:05/06/2025 PREOPERATIVE DIAGNOSIS: Danielle is a 69 year old female who is 14 days s/p emergency surgery to repair a perforated pyloric ulcer. Today she developed severe abdominal pain, leukocytosis, and free intra-abdominal air on image studies. She is being taken to the operating room for exploratory laparotomy to identify and correct the cause of her acute abdomen. POSTOPERATIVE DIAGNOSIS: Leak from the proximal aspect of the suture line used to repair the previous perforated pyloric ulcer. NAME OF PROCEDURE: Exploratory laparotomy with oversew/Talha patch of perforated pyloric ulcer; removal of two previously placed DEMETRIA drains, placement of a DEMETRIA drain above and below the right lobe of the liver, abdominal cavity washout. SURGEON: Magdiel Lehman MD, FACS [employer] APPRAISER SURGEON: None ANESTHESIA: General COMPLICATIONS: None ESTIMATED BLOOD LOSS: 30 mL DRAINS: DEMETRIA x 2 (both exit the right side of the abdomen). The lower drain is above the dome of the liver and the upper drain is in the sub-hepatic space adjacent to the pyloric repair FINDINGS: Purulent ascites in the RUQ above and below the liver. Normal appearing small bowel and transverse colon. Normal appearing stomach. No leak from the gastrostomy or jejunostomy tubes. An omental patch was adherent to the anterior surface of the pylorus inferior to the gastric staple line. On the proximal aspect of the suture line under the omental patch was a 3 mm defect that was leaking bile. SPECIMEN: Cultures (anaerobic, aerobic, yeast) DESCRIPTION OF OPERATION IS FOLLOWS: After consent for the procedure was obtained, the patient was brought to the operating room, where the anesthesia team stabilized the patient with vasopressor support and a unit of PRBC. Once the patient was hemodynamically stable general anesthesia was administered. A andrews catheter was placed into the urinary bladder. The abdomen was prepped with alcohol-free chloroprep and draped in a sterile fashion. The two DEMETRIA drains and the gastrostomy and jejunostomy tubes were included in the prep. A surgical time-out was performed indicating the patient and the procedure to be performed. The midline skin eleno were removed and the fascial sutures identified and removed. The abdominal cavity was entered and purulent fluid and a small amount of free air was identified. The fascial incision was extended distally 4 cm for improved exposure. Exploration revealed the above findings. The purulent fluid was aspirated and cultures were obtained. I removed both DEMETRIA drains and inspected the gastrostomy and jejunostomy sites which were normal and without evidence of leak. The distal small bowel was viable and there was mi nimal fluid in the pelvis. Most of the purulent ascites was under the right hemidiaphragm and in the lesser sac under the left lobe of the liver. Once the fluid was removed I was able to investigate the prior ulcer repair site and identified the defect. As the stomach was stapled closed, only bile and pancreatic juice was exiting from the defect. There was no evidence of jejunostomy feedings in the leakage. I examined the duodenal C-loop and it appeared viable, soft, and not distended. It did not appear as if the duodenum was obstructed distally. I decided to closed the defect rather than place a drain into defect. The perforation was closed with three 3-0 silk sutures in a Lembert fashion under no tension. An omental patch was then used to buttress the oversew site using the previously placed sutures. The abdominal cavity was irrigation with 2 liters of warm sterile saline. The irrigant was aspirated. A 19 F drain was placed into the subhepatic space adjacent to the repair site, brought out through a separate stab incision, and secured to the skin with a 3-0 silk suture. A second 19 F drain was placed over the right liver in the subdiaphragmatic space, brought out through a separate stab incision, and secured to the skin with a 3-0 silk suture. A search was made for sponges, packs, instruments and needles. None were found. The sponge, pack, instrument and needle counts were relayed to me as correct. The linea alba was then closed with a running double stranded 0-PDS suture. The subcutaneous tissue was irrigated with warm saline. The skin was closed with eleno. Dressings were placed. Both gastrostomy and jejunostomy tubes were opened to gravity drainage. The patient tolerated the procedure, was extubated and brought to the ICU in stable but guarded condition.
[2025-05-06] MEDS: NOREPINEPHRINE/0.9 % NS 8 MG/250 ML BAG IV SCH (16:25)
--- NOTE | 2025-05-06 16:52 | ANESTHESIA POST OP EVALUATION ---
Anesthesia Post Eval Post Anesthesia Eval Vitals: Last Vital Signs Temp 35.7 C L 05/06/25 13:00 Pulse 60 05/06/25 13:00 Resp 25 H 05/06/25 13:00 BP 108/65 05/06/25 13:00 Pulse Ox 96 05/06/25 13:00 O2 Flow Rate 10 04/26/25 16:15 CV Function Including HR & BP: Stable (stable on levophed drip, see ICU) Pain Control: Satisfactory Nausea & Vomiting: Negative Mental Status: Baseline Respiratory Status: Airway Patent Hydration Status: Satisfactory Anesthesia Complications: None
[2025-05-06 16:55] LABS: HCT - HEMATOCRIT 33.2 % (37.0-47.0); HGB - HEMOGLOBIN 9.7 g/dL (12.0-16.0); MEAN PLATELET VOLUME 9.6 fL (7.9-10.8); NRBC ABSOLUTE COUNT (AUTO) 0.03 x10^3/uL; NUCLEATED RED BLOOD CELLS AUTO 0.1 /100WBC; PLT - PLATELET COUNT 244 10^3/uL (130-450); RED CELL DISTRIBUTION WIDTH 23.1 % (12.0-15.0)
[2025-05-06] MEDS: LACTATED RINGERS 1,000 ML IV SCH ×2 (16:59→17:15)
[2025-05-06 17:09] LABS: SLIDE REVIEW? Indicated
[2025-05-06 17:15] LABS: BUN - BLOOD UREA NITROGEN 30.0 mg/dL (6-20); CARBON DIOXIDE - CO2 22.0 mmol/L (21-32); CREATININE 0.7 mg/dL (0.6-1.3); GFR - MDRD 83.0 (>89)
[2025-05-06 17:31] LABS: PLATELET ESTIMATE, MANUAL NORMAL (130-450,000) (NORMAL); PLATELET MORPHOLOGY NORMAL APPEARANCE (NORMAL); RBC MORPHOLOGY (MULTIPLE) 2+ ANISOCYTOSIS (NORMAL)
[2025-05-06] MEDS: METOPROLOL 5 MG/5 ML VIAL IVP SCH (20:26)
[2025-05-06] MEDS: levETIRAcetam INJ 500 MG in SODIUM CHLORIDE 0.9% 100ML 100 ML IV SCH (20:34)
[2025-05-07 04:40] LABS: HCT - HEMATOCRIT 24.7 % (37.0-47.0); HGB - HEMOGLOBIN 7.5 g/dL (12.0-16.0); MEAN PLATELET VOLUME 9.9 fL (7.9-10.8); PLT - PLATELET COUNT 252 10^3/uL (130-450); RED CELL DISTRIBUTION WIDTH 25.4 % (12.0-15.0)
[2025-05-07 04:42] LABS: VBG PH 7.356 (7.31-7.41)
[2025-05-07 04:45] LABS: ABNORMAL LYMPHS % (MANUAL) 0 %; BASOPHILS # (MANUAL) 0.0 10^3/uL (0-0.1); EOSINOPHILS # (MANUAL) 0.0 10^3/uL (0-0.7); INR 1.2 (0.8-1.2); PT - PROTHROMBIN TIME 12.9 secs (9.9-12.6)
[2025-05-07 04:55] LABS: ALT ALANINE AMINOTRANSFERASE 18.0 IU/L (10-60); AST ASPARTATE AMINOTRANSFERASE 20.0 IU/L (10-42); BUN - BLOOD UREA NITROGEN 33.0 mg/dL (6-20); CARBON DIOXIDE - CO2 20.0 mmol/L (21-32); CREATININE 0.9 mg/dL (0.6-1.3); GFR - MDRD 62.0 (>89); PHOSPHORUS 5.8 mg/dL (2.5-5.0)
[2025-05-07 05:27] LABS: BAND NEUTROPHILS % (MANUAL) 14 %; LYMPHOCYTES # (MANUAL) 1.0 10^3/uL (1.5-3.5); LYMPHOCYTES % (MANUAL) 4 %; MONOCYTES # (MANUAL) 0.5 10^3/uL (0.0-1.0); NEUTROPHILS # (MANUAL) 22.9 10^3/uL (1.5-6.6); NUCLEATED RBC (MANUAL) 1 %
[2025-05-07 05:28] LABS: WBC MORPHOLOGY (MULTIPLE) 1+ HYPERSEG NEUT (NORMAL)
--- NOTE | 2025-05-07 06:35 | PROVIDER PROGRESS NOTE ---
Progress Note Progress Note Progress Note: General Surgery Progress Note Hospital Day # 12 - Perforated pyloric ulcer with recurrent leak on hospital day # 11 POD # 11, Exploratory laparotomy, oversew/Talha patch perforated pyloric ulcer, gastric exclusion (stapled), gastrostomy tube placement, jejunostomy tube placement POD # 1, Exploratory laparotomy, oversew/Talha patch of ulcer repair site leak, abdominal cavity washout Code Status: Full ASSESSMENT/PLAN: 1) S/P re-exploration and oversew of a leaking pyloric ulcer surgical site - clinically stable although vasopressor support continues. The reason for the leak is unclear although when I reviewed her prior image studies from 04/26/2025, her duodenal C-loop was dilated. This may be due to the SMA partially occluding the duodenum, especially considering the significant weight loss over the previous several months. This partial occlusion may have resulted in increased duodenal pressure, at least enough to stress the repair. Initial treatment should be to reverse her protein-calorie nutritional status and avoid dilation of the small bowel to prevent regurgitation into the duodenum. The jejunostomy can be used as a vent for the small bowel and may also serve as a vent for the duodenal C-loop assuming the potential SMA occlusion is partial. Hopefully we can avoid the need for surgical decompression of the duodenum. 2) Protein-Calorie malnutrition - TPN for now. Once the gastric staple line has opened, the G-tube can serve as a vent for the duodenum and jejunostomy feedings can continue 3) Anemia - may be dilutional as her intra-operative blood loss was minimal and she received a unit of blood immediately before surgery 4) Hyperkalemia - avoid meds/fluid that contain potassium 5) Hyponatremia - probably related to TBW excess - decrease free water intake, diuresis when permitted by her hemodynamic status <><><><><> PERTINENT INTERVAL ISSUES: Continues to require vasopressor support S: Awake, smiling, alert, recognizes me, in no pain OBJECTIVE: I/O: 3387/1330 VS: BP 105/47; P 60; RR 14; T 36.9 EXAMINATION: MENTAL STATUS: AAO; Comfortable EYES: Pupils equal, round and reactive to light, sclera anicteric, EARS, NOSE, MOUTH, THROAT: Normal hearing, Oral mucous membranes moist and without lesions; NECK: No crepitus, lymphadenopathy, or thyromegaly LUNGS: Clear to auscultation without wheezing; No use of accessory muscles to breathe CARDIOVASCULAR: Heart-NSR without murmurs; ABD: Soft, Incision clean and dry; G-tube and J-tube to gravity drainage; Both DEMETRIA drains with old blood - no purulence or bilious fluid Gastrostomy - 200/24h DEMETRIA 1 (sub-diaphragmatic) - 375/24 hrs DEMETRIA 2 (sub-hepatic) - 165/24 hrs EXTREMITIES: No clubbing, cyanosis, infections SKIN: Anicteric; No rashes, lesions, ulcerations LABS: WBC 24.4; H&H 7.5/24.7; PLT 252K; NA 129; K 5.3; Cr 0.9; Glu 128 TP 3.7; Alb 1.7 CULTURES: Peritoneal (preliminary) - NOS IMAGING: None today ANTIMICROBIALS: Zosyn, Diflucan PAIN CONTROL: IV Hydromorphone prn, Tylenol, Oxycodone VTEP: Chemical: Heparin, 5,000 units, SQ, Q 12 hrs Mechanical: SCD INFUSIONS: Norepinephrine titrated prn Magdiel Lehman MD, FACS General Surgery Service
--- NOTE | 2025-05-07 08:09 | PROVIDER PROGRESS NOTE ---
Subjective Prog Note Date Prog Note Date: 05/07/25 Prog Note Time: 08:08 Subjective Subjective: Patient subjectively improving today, though her labs overall are worse. Her hemoglobin is stable. She is still requiring pressors which are titrating down, but not quickly. She is tachypneic and afebrile. Her white blood cell count is up at 24.4. Her drains are putting out serosanguineous fluid. She continues on IV antibiotics and antifungals. TPN plan to start later today. She is somewhat more edematous today. Her urine output is dropping. She reports her pain is much improved. Does not have any subjective complaints this morning. Denies cough, dyspnea. Current Medications Current Medications Current Medications: Current Medications Generic Name Dose Route Start Last Admin Trade Name Freq PRN Reason Stop Dose Admin Furosemide 10 mg 05/07/25 09:00 Furosemide 40 Mg/4 Ml Vial IVP DAILY CINDY Heparin Sodium (Porcine) 5,000 unit 05/04/25 09:00 05/06/25 20:21 Heparin 5,000 Unit/Ml Vial SUBQ Not Given BID CINDY Hydromorphone HCl 1 mg 05/06/25 21:59 05/06/25 22:32 Hydromorphone 0.5 Mg/0.5 Ml Syringe IVP 1 mg Q2H PRN Administration Severe Pain (Level 7-10) Fluconazole 100 mls @ 100 mls/hr 04/26/25 18:00 05/06/25 18:00 Diflucan 200 Mg/100 Ml IV Infused Q24H CINDY Infusion Acetaminophen 1,000 mg in 100 mls @ 400 mls/hr 04/27/25 12:00 05/07/25 03:20 Acetaminophen IV Infused Q8H CINDY Infusion Norepinephrine/Sodium Chloride 8 mg in 250 mls @ 15 mls/hr 05/06/25 09:00 05/07/25 06:30 Levophed 8 Mg/250-0.9% Nacl IV 12 mcg/min .[id number] CINDY 22.5 mls/hr Protocol Titration 8 MCG/MIN Piperacillin Sod/Tazobactam 100 mls @ 25 mls/hr 05/06/25 12:00 05/07/25 04:20 Sod 3.375 gm/ Sodium Chloride IV 25 mls/hr Q8H CINDY Administration Lactated Ringer's 1,000 mls @ 100 mls/hr 05/06/25 18:00 05/07/25 04:20 Lr IV 100 mls/hr .Q10H CINDY Administration Levetiracetam 500 mg/ Sodium 105 mls @ 400 mls/hr 05/06/25 21:00 05/06/25 20:55 Chloride IV Infused BID CINDY Infusion Metoprolol Tartrate 2.5 mg 05/06/25 22:00 05/07/25 04:23 Metoprolol 5 Mg/5 Ml Vial IVP Not Given TID CINDY Ondansetron HCl 4 mg 04/26/25 17:08 Ondansetron Odt 4 Mg Tablet TL Q6HR PRN Nausea / Vomiting Ondansetron HCl 4 mg 04/26/25 17:08 Ondansetron 4 Mg/2 Ml Vial IVP Q6HR PRN Nausea / Vomiting Oxycodone HCl 5 mg 05/04/25 08:13 05/06/25 08:03 Oxycodone 5 Mg Tablet FT 5 mg Q4HR PRN Administration Moderate Pain (Level 4-6) Pantoprazole Sodium 40 mg 04/26/25 21:00 05/06/25 20:34 Pantoprazole 40 Mg Vial IVP 40 mg BID CINDY Administration Polyethylene Glycol 17 gm 04/29/25 10:32 04/29/25 17:05 Polyethylene Glycol 3350 17 Gm Packet JT 17 gm DAILY PRN Administration Bowel Protocol Simethicone 80 mg 05/04/25 08:12 05/06/25 07:54 Simethicone 40 Mg/0.6 Ml 30 Ml Bottle JT 80 mg Q6HR PRN Administration Gas Sodium Chloride 10 ml 04/26/25 17:08 05/06/25 22:32 Sodium Chloride Flush 0.9% 10 Ml Syringe IVP 10 ml 0100,0900,1700 CINDY Administration Sodium Chloride 10 ml 04/26/25 17:08 05/05/25 04:20 Sodium Chloride Flush 0.9% 10 Ml Syringe IVP 10 ml PRN PRN Administration NEEDED PER PROVIDER ORDERS Zinc Oxide 113 gm 04/27/25 04:26 04/27/25 04:42 Cod Liver Oil/Zinc Oxide 113 Gm Tube TOP 1 applic PRN PRN Administration Skin Care Objective Vital Signs/Intake & Output Reviewed Vital Signs: Yes Vital Signs: Vital Signs x48h Temp Pulse Resp BP Pulse Ox 05/07/25 07:00 36.8 C 74 24 109/49 L 96 05/07/25 06:00 36.9 C 60 14 105/47 L 96 05/07/25 05:00 36.9 C 63 16 107/47 L 97 05/07/25 04:00 36.7 C 60 13 109/50 L 96 05/07/25 03:00 36.7 C 82 27 H 99/51 L 96 05/07/25 02:55 36.7 C 78 25 H 100/57 L 95 05/07/25 02:50 92/46 L 05/07/25 02:00 36.6 C 61 12 95/53 L 97 05/07/25 01:00 36.5 C 70 12 105/70 97 05/07/25 00:55 80/54 L 05/07/25 00:10 36.3 C L 61 14 95/54 L 95 Intake & Output: Intake & Output 05/04/25 05/05/25 05/06/25 05/07/25 23:59 23:59 23:59 23:59 Intake Total 2432 / 2432 2501 / 2501 3387 / 3387 1432 / 1432 Output Total 1660 / 1660 2646 / 2646 1330 / 1330 154 / 154 Balance 772 / 772 -145 / -145 2056 / 2056 1278 / 1278 Weight (kg) 50.5 kg 51.5 kg 51 kg 54 kg Objective Comments/Other: GEN: No acute distress. Alert and oriented. Family at bedside HEENT: NC/AT, normal appearance of external ears and nose. Hearing baseline. Cardiac: Irregular rhythm, rate controlled. No JVD. Edematous in his lower extremities and abdomen Pulm: Diffuse rales in the lungs. Having occasional "grunting" breaths. No cough. Abdomen: Soft, nondistended. Tender around her incision sites. G-tube and J-tube both to gravity. 2 DEMETRIA drains in the right with serosanguineous fluid. Extremities: Chronic left-sided deficits, and left upper extremity contracture. Neuro: Face symmetric, CN II through XII intact grossly. Chronic and stable left-sided deficits. Psych: Mood euthymic. Affect normal. Lab Results 05/07/25 04:15 05/07/25 04:15 Other Labs: Lab Results x24hrs 05/07/25 05/07/25 05/07/25 Range/Units 04:15 04:15 04:15 WBC (4.8-10.8) x10^3/uL RBC (4.20-5.40) 10^6/uL Hgb (12.0-16.0) g/dL Hct (37.0-47.0) % MCV (81.0-99.0) fL MCH (27.0-31.0) pg MCHC (32.0-36.0) g/dL RDW (12.0-15.0) % Plt Count (130-450) 10^3/uL MPV (7.9-10.8) fL Neut # (Auto) (1.5-6.6) 10^3/uL Lymph # (Auto) (1.5-3.5) 10^3/uL [place] # (Auto) (0.0-1.0) 10^3/uL Eos # (Auto) (0.0-0.7) 10^3/uL Baso # (Auto) (0.0-0.1) 10^3/uL Absolute Nucleated RBC x10^3/uL Total Counted Band Neuts % (Manual) (0 - 10) % Abnorm Lymph % (Manual) % Nucleated RBC % /100WBC Neutrophils # (Manual) (1.5-6.6) 10^3/uL Lymphocytes # (Manual) (1.5-3.5) 10^3/uL Monocytes # (Manual) (0.0-1.0) 10^3/uL Eosinophils # (Manual) (0-0.7) 10^3/uL Basophils # (Manual) (0-0.1) 10^3/uL Nucleated RBCs % Differential Comment Manual Slide Review WBC Morphology (NORMAL) Platelet Estimate (NORMAL) Platelet Morphology (NORMAL) RBC Morph Micro Appear 2+ ANISOCYTOSIS 1+ TARGET CELLS 1+ SCHISTOCYTES (NORMAL) PT 12.9 H (9.9-12.6) secs INR 1.2 (0.8-1.2) VBG pH 7.356 (7.31-7.41) Ionized Calcium 1.11 (1.09-1.30) mmol/L Sodium 129 L (135-145) mmol/L Potassium 5.3 H (3.5-4.5) mmol/L Chloride 102 (101-111) mmol/L Carbon Dioxide 20 L (21-32) mmol/L Anion Gap 7.0 (6-13) BUN 33 H (6-20) mg/dL Creatinine 0.9 (0.6-1.3) mg/dL Estimated GFR (MDRD) 62 L (>89) Glucose 128 H (74-104) mg/dL Calcium 7.0 L (8.5-10.3) mg/dL Phosphorus 5.8 H (2.5-5.0) mg/dL Magnesium 2.0 (1.7-2.3) mg/dL Total Bilirubin 1.2 H (0.2-1.0) mg/dL AST 20 (10-42) IU/L ALT 18 (10-60) IU/L Alkaline Phosphatase 194 H (42-121) IU/L Total Protein 3.7 L (6.4-8.9) g/dL Albumin 1.7 L (3.2-5.5) g/dL Globulin 2.0 L (2.1-4.2) g/dL Albumin/Globulin Ratio 0.9 L (1.0-2.2) Blood Type Antibody Screen Crossmatch IS Only 05/07/25 05/07/25 05/06/25 Range/Units 04:15 04:15 23:20 WBC 24.4 H (4.8-10.8) x10^3/uL RBC 3.03 L (4.20-5.40) 10^6/uL Hgb 7.5 L (12.0-16.0) g/dL Hct 24.7 L (37.0-47.0) % MCV 81.5 (81.0-99.0) fL MCH 24.8 L (27.0-31.0) pg MCHC 30.4 L (32.0-36.0) g/dL RDW 25.4 H (12.0-15.0) % Plt Count 252 (130-450) 10^3/uL MPV 9.9 (7.9-10.8) fL Neut # (Auto) Not Reportable (1.5-6.6) 10^3/uL Lymph # (Auto) Not Reportable (1.5-3.5) 10^3/uL [place] # (Auto) Not Reportable (0.0-1.0) 10^3/uL Eos # (Auto) Not Reportable (0.0-0.7) 10^3/uL Baso # (Auto) Not Reportable (0.0-0.1) 10^3/uL Absolute Nucleated RBC Not Reportable x10^3/uL Total Counted 100 Band Neuts % (Manual) 14 H (0 - 10) % Abnorm Lymph % (Manual) 0 % Nucleated RBC % Not Reportable /100WBC Neutrophils # (Manual) 22.9 H (1.5-6.6) 10^3/uL Lymphocytes # (Manual) 1.0 L (1.5-3.5) 10^3/uL Monocytes # (Manual) 0.5 (0.0-1.0) 10^3/uL Eosinophils # (Manual) 0.0 (0-0.7) 10^3/uL Basophils # (Manual) 0.0 (0-0.1) 10^3/uL Nucleated RBCs 1 % Differential Comment MANUAL DIFFERENTIAL Manual Slide Review WBC Morphology 1+ HYPERSEG NEUT (NORMAL) Platelet Estimate (NORMAL) Platelet Morphology (NORMAL) RBC Morph Micro Appear 2+ OVALOCYTES 3+ HYPOCHROMASIA (NORMAL) PT (9.9-12.6) secs INR (0.8-1.2) VBG pH (7.31-7.41) Ionized Calcium (1.09-1.30) mmol/L Sodium (135-145) mmol/L Potassium 5.2 H (3.5-4.5) mmol/L Chloride (101-111) mmol/L Carbon Dioxide (21-32) mmol/L Anion Gap (6-13) BUN (6-20) mg/dL Creatinine (0.6-1.3) mg/dL Estimated GFR (MDRD) (>89) Glucose (74-104) mg/dL Calcium (8.5-10.3) mg/dL Phosphorus (2.5-5.0) mg/dL Magnesium (1.7-2.3) mg/dL Total Bilirubin (0.2-1.0) mg/dL AST (10-42) IU/L ALT (10-60) IU/L Alkaline Phosphatase (42-121) IU/L Total Protein (6.4-8.9) g/dL Albumin (3.2-5.5) g/dL Globulin (2.1-4.2) g/dL Albumin/Globulin Ratio (1.0-2.2) Blood Type Antibody Screen Crossmatch IS Only 05/06/25 Range/Units 16:39 WBC 20.0 H (4.8-10.8) x10^3/uL RBC 4.00 L (4.20-5.40) 10^6/uL Hgb 9.7 L (12.0-16.0) g/dL Hct 33.2 L (37.0-47.0) % MCV 83.0 (81.0-99.0) fL MCH 24.3 L (27.0-31.0) pg MCHC 29.2 L (32.0-36.0) g/dL RDW 23.1 H (12.0-15.0) % Plt Count 244 (130-450) 10^3/uL MPV 9.6 (7.9-10.8) fL Neut # (Auto) 18.9 H (1.5-6.6) 10^3/uL Lymph # (Auto) 0.5 L (1.5-3.5) 10^3/uL [place] # (Auto) 0.3 (0.0-1.0) 10^3/uL Eos # (Auto) 0.0 (0.0-0.7) 10^3/uL Baso # (Auto) 0.1 (0.0-0.1) 10^3/uL Absolute Nucleated RBC 0.03 x10^3/uL Total Counted Band Neuts % (Manual) (0 - 10) % Abnorm Lymph % (Manual) % Nucleated RBC % 0.1 /100WBC Neutrophils # (Manual) (1.5-6.6) 10^3/uL Lymphocytes # (Manual) (1.5-3.5) 10^3/uL Monocytes # (Manual) (0.0-1.0) 10^3/uL Eosinophils # (Manual) (0-0.7) 10^3/uL Basophils # (Manual) (0-0.1) 10^3/uL Nucleated RBCs % Differential Comment Manual Slide Review Indicated WBC Morphology (NORMAL) Platelet Estimate NORMAL (130-450,000) (NORMAL) Platelet Morphology NORMAL APPEARANCE (NORMAL) RBC Morph Micro Appear 2+ ANISOCYTOSIS (NORMAL) PT (9.9-12.6) secs INR (0.8-1.2) VBG pH (7.31-7.41) Ionized Calcium (1.09-1.30) mmol/L Sodium 129 L (135-145) mmol/L Potassium 5.3 H (3.5-4.5) mmol/L Chloride 103 (101-111) mmol/L Carbon Dioxide 22 (21-32) mmol/L Anion Gap 4.0 L (6-13) BUN 30 H (6-20) mg/dL Creatinine 0.7 (0.6-1.3) mg/dL Estimated GFR (MDRD) 83 L (>89) Glucose 163 H (74-104) mg/dL Calcium 7.0 L (8.5-10.3) mg/dL Phosphorus (2.5-5.0) mg/dL Magnesium (1.7-2.3) mg/dL Total Bilirubin (0.2-1.0) mg/dL AST (10-42) IU/L ALT (10-60) IU/L Alkaline Phosphatase (42-121) IU/L Total Protein (6.4-8.9) g/dL Albumin (3.2-5.5) g/dL Globulin (2.1-4.2) g/dL Albumin/Globulin Ratio (1.0-2.2) Blood Type O POSITIVE Antibody Screen NEGATIVE Crossmatch IS Only See Detail Assessment/Plan Problem List (1) Perforated chronic gastric ulcer: Impression: Repaired surgically 05/06. This was a redo repair. Initially had pyloric exclusion with repair on 04/26. Has been found to have yeast in her abdomen. She is on Diflucan. Started on Zosyn with worsening leukocytosis and abdominal pain on 05/07. Shock as below Holding off on tube feeds through either J-tube or G-tube until surgical site has time to heal, tentatively around 05/11 - Defer to surgery on when to return to tube feeds - Started on TPN without lytes as hers are elevated. - Pain management with parenteral narcotics - Continue Zosyn, tentatively 7 days through 05/13 - Continue Diflucan at least through 05/13 if not through 05/20 (2) Status post exploratory laparotomy: (3) Complete gastric outlet obstruction: (4) Jejunostomy tube present: (5) Gastrostomy tube present: (6) Shock: Impression: Hypovolemic versus distributive shock. More likely distributive. She is on antibiotics as above. She got fluids yesterday including blood in the OR. Her hemoglobin is holding stable. No obvious signs of bleeding, having some serosanguineous drainage into her DEMETRIA drains. Despite this, she is somewhat volume overloaded, she is not making urine. - Continue antibiotics as above - Consider additional fluids - Continue Levophed, titrate to urine output of around 25 cc/h - Holding other vasoactive medications (7) HFrEF (heart failure with reduced ejection fraction): Impression: Stable. She is tachypneic. Remains on room air. She is getting more edematous in her abdomen. Not making any urine. She has had tenuous fluid shifts throughout this hospitalization and received a lot of fluid with her surgery. She became volume overloaded on 05/01 requiring IV Lasix. An echo was performed at that time which revealed an EF of 45 to 50% she also has tricuspid, mitral regurgitation with moderate pulmonary hypertension. - Will give 1 amp of albumin followed by Lasix - TPN as above (8) Acute metabolic encephalopathy: Impression: Resolved. Patient Continues to mentate appropriately. Patient became agitated on 04/30 requiring Ativan which caused somnolence and may have contributed to some initial soft pressures. Code stroke was called but no intracranial hemorrhage or new focal deficits noted. She has a history of prior CVA as below. There is extensive encephalomalacia. Teleneurology recommended starting Keppra with prior hospitalist and now she is on 500 mg twice daily. Per teleneurology recommendations, I EEG can be considered if she remained persistently encephalopathic, however she is clearing. No focal neurologic deficits. - Continue Keppra 500 mg twice daily, Has been converted to IV - Treating other medical issues as above and below (9) Afib: Impression: Rate controlled currently. On telemetry, she has had some runs of RVR. Normally on Eliquis and metoprolol Succinate 25 mg. Metoprolol succinate cannot be given through her J-tube. She has a pacemaker with pacer leads apparent on telemetry and previous EKGs. Working appropriately. - On SQH for VTE prophylaxis, Held perioperatively. Will hold off on resuming Eliquis until she clinically stabilizes. - Continues on Lopressor 2.5 3 times daily for rate control Qualifiers: Atrial fibrillation type: unspecified Qualified Code(s): I48.91 - Unspecified atrial fibrillation (10) HTN (hypertension): Impression: Reportedly has a history of hypertension, but is only on beta-raheem prior to this hospitalization. Shock as above. - Reasonable to continue beta-raheem for rate control Qualifiers: Hypertension type: unspecified Qualified Code(s): I10 - Essential (primary) hypertension (11) Diabetes mellitus: Impression: Seemingly diet controlled. Last A1c of 5.1%. - Monitor off sliding scale insulin at this time. Qualifiers: Diabetes mellitus complication status: without complication Diabetes mellitus prison insulin use: without termite control servicer use Diabetes mellitus type: t ype 2 Qualified Code(s): E11.9 - Type 2 diabetes mellitus without complications (12) Cerebrovascular accident (CVA): Impression: With persistent and baseline left-sided deficits and left upper extremity contracture. On Keppra as above. Not on ASA or statin historically. - Consider starting on DOAC and statin for secondary prevention when she clinically stabilizes Qualifiers: CVA mechanism: thrombosis Laterality of affected vessel: right P recerebral and cerebral artery: middle cerebral artery Qualified Code(s): I 63.311 - Cerebral infarction due to thrombosis of right middle cerebral artery
[2025-05-07] MEDS: FUROSEMIDE 40 MG/4 ML VIAL IVP SCH (08:52)
[2025-05-07] MEDS: ALBUMIN 25% 12.5 GM/50 ML VIAL IV STA (15:03)
[2025-05-07] MEDS: FUROSEMIDE 40 MG/4 ML VIAL IVP ONE (15:16)
[2025-05-07] MEDS: PPN IV SCH (18:14)
[2025-05-07] MEDS: MULTIVITAMIN IV SCH (18:14)
[2025-05-07] MEDS: TRACE ELEMENTS IV SCH (18:14)
[2025-05-07] MEDS: FAT EMULSION 20% 250 ML IV SCH (18:17)
--- NOTE | 2025-05-07 18:39 | ADVANCE CARE PLANNING NOTE ---
Advance Care Planning Planning Encounter Date: 05/07/25 Time: 18:38 Diagnosis for Encounter (1) Perforated chronic gastric ulcer: (2) Status post exploratory laparotomy: (3) Complete gastric outlet obstruction: (4) Jejunostomy tube present: (5) Gastrostomy tube present: (6) Shock: (7) HFrEF (heart failure with reduced ejection fraction): (8) Acute metabolic encephalopathy: (9) Afib: Qualifiers: Atrial fibrillation type: unspecified Qualified Code(s): I48.91 - Unspecified atrial fibrillation (10) HTN (hypertension): Qualifiers: Hypertension type: unspecified Qualified Code(s): I10 - Essential (primary) hypertension (11) Diabetes mellitus: Qualifiers: Diabetes mellitus type: type 2 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 use: without equipment operator intermodal yard use Diabetes mellitus complication status: without complication Qualified Code(s): E11.9 - Type 2 diabetes mellitus without com plications (12) Cerebrovascular accident (CVA): Qualifiers: CVA mechanism: thrombosis Laterality of affected vessel: right Precerebral and cerebral artery: middle cerebral artery Qualified Code(s): I63.311 - Cerebral infarction due to thrombosis of right middle cerebral artery Encounter Additional Discussion: Patient is a 69-year-old female with a prolonged hospitalization after she admitted with perforated viscus and was initially concern for ulceration of her stomach due to malignancy. Her pathology has come back benign at this point, but she is still had a difficult recovery. Her hospital course has been complicated by reperforation on 05/06 necessitating second ex lap. She has since that time remained on high-dose pressors, which have potentiated some arrh ythmias. She continues to be volume overloaded and she is not making much urine. She is in very critical condition right now. Graciously she is mentating appropriately. Her sons and her family been at bedside individual for the last several days. They are well aware of the severity of her condition. I discussed with Danielle, and her goal is to eventually get out of the hospital. She hopes to get better. Her son Nolberto says "she wants to live". I empathized that I want her to live as well. I feel like we are working hard to maintain her body despite multiple insults over the past 2 weeks. She was fragile to begin with given her previous stroke and chronic deficits. She struggled with maintaining adequate nutrition via tube feeds given reperforation, and has been started on TPN this evening with hope that she can maintain adequate nutrition to help her surgical wounds heal. I made the recommendation that given the profundity of her injuries, her tenuous nature given her heart failure and previous stroke, difficult fluid shifts over the past 14 days, and high-dose pressor requirements at this time, if her heart were to stop resuscitative efforts if successful would likely mean that she would spend the rest of her life in the hospital. Possibly on a ventilator for that time. She values quality of life over quantity, and agrees that continuing with full treatment course up until the point that her heart stops is reasonable. However in the event of , she is DNR. Given that she is on room air right now, we deferred a conversation about whether we would try ventil ation for a limited period. We would hopefully have some time to make that determination if she begins to exhibit respiratory failure. For now patient is DNR, full treatment otherwise up to and including intubation if necessary, her surrogate decision maker is her youngest son Da, and I reached out to him by phone to discuss these changes. He is understanding and in agreement. Code Status: Do Not Attempt Resuscitation Time spent on advance care plannin
[2025-05-07] MEDS ORDERED: TPN (CLINIMIX E 5/15) 2,000 ML with MULTIVITAMIN 10 ML, TRACE ELEMENTS 1 ML, SODIUM CHL... IV SCH (19:00)
[2025-05-07] MEDS: VASOPRESSIN 20 UNIT in DEXTROSE 5% 99 ML IV SCH (19:31)
[2025-05-07 21:43] LABS: ABG BASE EXCESS -19.3 mmol/L (-2.0-3.0); ABG HCO3 8.9 mmol/L (22.0-26.0); ABG OXYGEN SATURATION 100 % (95-98); ABG PCO2 22 mmHg (34-45); ABG PH 7.21 (7.35-7.45); ABG PO2 121 mmHg (83-108)
[2025-05-07 21:45] LABS: ABG TCO2 9.6 mmol/L (21.0-29.0)
[2025-05-07 21:46] LABS: ABG FRACTION OF INSPIRED O2 40.00
--- NOTE | 2025-05-07 22:16 | PROVIDER PROGRESS NOTE ---
Progress Note Progress Note Progress Note: This patient is becoming more sick. She is becoming tachypneic. She appears very uncomfortable. Her oxygen saturation is dropping. She is on 2 pressors. ABG was drawn and patient is acidotic with a pH of 7.21. Her pCO2 is low likely related to her tachypnea and an effort to compensate for her acidosis. Additionally she is severely anemic. With a hemoglobin of 5.9. I ordered 2 units of blood upon learning of her hemoglobin. Considered drawing a lactate but with the blood running this will not be accurate. I think given her acidosis I should start broadening her spectrum of antibiotics given the fact that her white count is increasing and she is becoming more ill. Advance care planning discussion was held with the patient's family this evening. She will be DNR but they do consent to intubation. At this time I am placing her on BiPAP to try to help support her respiratory status and broadening her antibiotic coverage. I am giving her lorazepam in an effort to slow her breathing. her pain is being treated. I did consider the possibility of pulmonary embolus, however, this patient is too ill to withstand a move to the CT scanner and back. I also think with her recent intra-abdominal procedure to anticoagulate her empirically would be a poor choice.
[2025-05-07] MEDS: LORazepam 2 MG/ML VIAL IVP PRN (22:23)
[2025-05-07] MEDS: MEROPENEM 1 GM in SODIUM CHLORIDE 0.9% MINIBAG 100 ML IV SCH (23:39)
[2025-05-08 00:03] LABS: ABG BASE EXCESS -21.5 mmol/L (-2.0-3.0); ABG HCO3 7.7 mmol/L (22.0-26.0); ABG OXYGEN SATURATION 100 % (95-98); ABG PCO2 23 mmHg (34-45); ABG PO2 117 mmHg (83-108)
[2025-05-08 00:05] LABS: ABG FRACTION OF INSPIRED O2 30.00; ABG PH 7.14 (7.35-7.45); ABG TCO2 8.4 mmol/L (21.0-29.0)
[2025-05-08] MEDS ORDERED: PROPOFOL 200 MG/20 ML VIAL IVP ONE (00:30)
[2025-05-08] MEDS ORDERED: ETOMIDATE 40 MG/20 ML VIAL IVP ONE (00:30)
[2025-05-08] MEDS ORDERED: SUCCINYLCHOLINE 200 MG/10 ML VIAL ONE (00:31)
[2025-05-08] MEDS ORDERED: ROCURONIUM 50 MG/5 ML VIAL ONE (00:31)
[2025-05-08] MEDS ORDERED: MIDAZOLAM 2 MG/2 ML VIAL ONE (00:38)
[2025-05-08] MEDS ORDERED: ePHEDrine 50 MG/ML VIAL IVP ONE (00:40)
[2025-05-08] MEDS: PROPOFOL 1000 MG/100 ML 1,000 MG/100 ML BOTTLE IV SCH (00:48)
--- NOTE | 2025-05-08 01:24 | ANESTHESIA PROCEDURE NOTE ---
Anesthesia Intubation Template Intubation Blade: positive Glidescope Tube: Size-enter number (7.5), Cuffed and Marked at teeth-enter cm (21) Route: Oral Placement Confirmation: End tidal CO2, Direct visualization and Bilateral breath sounds Complications: No complications
--- NOTE | 2025-05-08 01:29 | PROVIDER PROGRESS NOTE ---
Cd Reactor Operator Note Cd Reactor Operator Note Cd Reactor Operator Note: 12:19 AM I got urgent page for evaluation of worsening clinical status with worsening pH while on biPAP and pH- 7.14 and Hco3 7.73 and diffuse edema as per my discussion with SRAVAN Hudson, sedation order for propofol are given, Anesthesia team is at bedside, patient is in the process of mechanical intubation 00:[address] Herrera and updated clinical course, he shared he will see patient at bedside 01:26 hrs , discussed with Dr Herrera, who saw patient at bedside, patient is critically ill and too ill to transfer higher level of care, Dr Herrera updated critical course, would be difficult to evaluate for PE considering acute respiratory issues, currently intubated, stable pressors, on antibiotics and and antifungal, no role of surgery as per Bedside evaluation ,even if surgery is indicated, patient is too ill to handle surgery, considering degree of anemia, not a candidate for anticoagulate if PE would be diagnosis, continue supportive care, ordered Echo for AM to evaluate EF, guarded prognosis, family is aware about worsening clinical condition, Poor prognosis
--- NOTE | 2025-05-08 01:29 | CONSULTATION NOTE ---
Consultation Report: called to the bedside to emergently intubate pt due to respiratory failure. Pt currently on BiPap in ICU, lethargic, but mentating. Reviewed pt's DNR status with pt and family at the bedside, and per their wishes will proceed with intubation. See anesthesia record for meds and [facility] for RN/RT charting. Pt intubated with ease, 7.5ETT, Grade 1 view with Glidescope, secured 21cm at the teeth. atraumatic, dentiotion intact. Son remains at the bedisde throughout. Care turned over to the ICU team [facility] Active Problems All Active Problems HFrEF (heart failure with reduced ejection fraction) (Acute) Fluid overload (Acute) Acute metabolic encephalopathy (Acute) Sacral decubitus ulcer (Acute) Complete gastric outlet obstruction (Acute) Jejunostomy tube present (Acute) Gastrostomy tube present (Acute) Status post exploratory laparotomy (Acute ~04/26/25) Perforated chronic gastric ulcer (Acute) Shock (Acute) SMAS (superior mesenteric artery syndrome) (Acute) Lumbar contusion (Acute) Cerebrovascular accident (CVA) (Acute ~2018) Medical History Medical History HLD (hyperlipidemia) HTN (hypertension) Afib History of pacemaker Social History Social History Smoking Status: Former smoker If you are a former smoker, when did you quit? (Date/Year): 2018 Number of Years Smoked: 15 Second hand tobacco smoke exposure: No Do you dip or chew tobacco?: No Do you vape?: No Living arrangement: At home Living Condition: With spouse/s.o. Level: Dependent Home Mobility Equipment: Cane Do you feel safe in your home environment?: Yes History of physical, verbal, emotional, or financial abuse?: No ETOH Use: None Are you sexually active?: No POLST Patient has POLST: No POLST CPR Status: Attempt Resuscitation (CPR) Level of Medical Intervention: Full Treatment Conclusion/Plan Problem List (1) Perforated chronic gastric ulcer: (2) Status post exploratory laparotomy: (3) Complete gastric outlet obstruction: (4) Jejunostomy tube present: (5) Gastrostomy tube present: (6) Shock: (7) HFrEF (heart failure with reduced ejection fraction): (8) Acute metabolic encephalopathy: (9) Afib: Qualifiers: Atrial fibrillation type: unspecified Qualified Code(s): I48.91 - Unspecified atrial fibrillation (10) HTN (hypertension): Qualifiers: Hypertension type: unspecified Qualified Code(s): I10 - Essential (primary) hypertension (11) Diabetes mellitus: Qualifiers: Diabetes mellitus type: type 2 Diabetes mellitus snf insulin use: without director long term care use Diabetes mellitus complication status: without complication Qualified Code(s): E11.9 - Type 2 diabetes mellitus without complications (12) Cerebrovascular accident (CVA): Qualifiers: CVA mechanism: thrombosis Laterality of affected vessel: right P recerebral and cerebral artery: middle cerebral artery Qualified Code(s): I 63.311 - Cerebral infarction due to thrombosis of right middle cerebral artery Plan 69yoF s/p 04/26/2025 emergent exploratory laparotomy for perforated pyloric ulcer, intraoperatively suspicious for malignancy due to history of weight loss and intraoperative invovlement of the hepatic ligament, though biopsies have returned as BENIGN. ExLap included biopsies of perforated ulcer, zachary patch of perforation, stapled pyloric exclusion, placement of venting gastrostomy tube and feeding jejunostomy tube. No gastric biopsies for H pylori but stool h pylori negative. CEA normal. H/o Afib on Eliquis with pacemaker, Echo this admission with EF 45-50%. Hospital course has been notable for tenuous volume status between significant third spacing and edema/anasarca as well as intravascular hypovolemia. On and off pressors during the first week. Transient AMS/delirium after ativan concerning for recurrent CVA, but imaging demonstrated only her old CVA lesion. Significant blood loss from RIJ CVC requiring multiple blood products to correct the resultant coagulopathy/hemolysis. All of these things now managaged and overall seems to be heading towards a steady state. POD8 - Pain overall controlled, no changes (IV or liquid meds via J Tube) - albumin boluses with lasix PRN, goal to dc andrews soon (per IM) - Jejunostomy feeds at goal. Is having brown BM now, can use miralax in FWF PRN. - OK to have clear liquids for comfort sparingly, they will drain via Gastrostomy tube, which should remain to gravity drainage bag. - Daily CBC/Chem - WBC now normalized. Completed 1 week vanc/zosyn. Plan 14d fluconazole. Blood cx with no growth, abdominal cx with yeast growth only. - No sign of leak by DEMETRIA drain contents. (LEFT DEMETRIA in LEFT colic gutter, monitoring for G tube or J tube leak; RIGHT DEMETRIA is posterior to zachary patch and in RUQ, monitoring for recurrent leak from perforation) - continue DEMETRIA drains until consistently mobilizing, tolerating J tube feeds, and PO sips/clears for comfort with with no leaks and clinical stability. Plan to remove prior to DC to SNF. - On heparin ppx, resume home Eliquis per IM - continue working with PT/SW for dc planning. Will be J-tube dependent for tube feedings director long term care (~6mo). - Remove midline eleno --> steristrips prn before discharge. - continue protonix BID on discharge snf plan: repeat EGD in 3-6m to assess opening of pyloric exclusion and or ulcer regression. Repeat biopsies of mass/h pylori (is pyloric exclusion is open). Consider PET for confirmation of no malignancy. If pylorus opens on its own, will be able to resume PO feeds and DC G/J. If pylorus does not reopen, goal to reoperate for transition to G-J anastomosis once she has rehab'd well. Signing out to Dr. Lehman for surgical coverage tomorrow. Ro Odell DO, FACS General Surgeon, [facility] Lab Results Lab results reviewed: Yes 05/07/25 21:01 05/07/25 21:01 Meds/Allgy Home Medications Ambulatory Orders Medication Instructions Recorded Confirmed apixaban 5 mg tablet (Eliquis) 5 mg PO BID 05/17/24 lisinopril 2.5 mg tablet 2.5 mg PO DAILY 04/26/25 metoprolol succinate 25 mg 25 mg PO DAILY 04/27/25 tablet,extended release 24 hr Allergies Allergies Allergy/AdvReac Type Severity Reaction Status Date / Time morphine Allergy Rash Verified 04/26/25 07:21 sulfamethoxazole (From Allergy Rash Verified 04/26/25 07:21 Sept) trimethoprim (From ) Allergy Rash Verified 04/26/25 07:21 Anesthesia Exam (Expanded) Exam Dental: WNL Exam Exam Vital Signs: Vital Signs x48h Temp Pulse Pulse Resp BP Pulse Ox O2 Flow Rate 05/08/25 00:14 60 05/08/25 00:00 36.1 C L 60 25 H 116/53 L 98 05/07/25 23:00 36.2 C L 60 26 H 116/49 L 88 L 05/07/25 22:25 71 4 05/07/25 22:00 36.3 C L 69 25 H 110/50 L 86 L 05/07/25 22:00 36.4 C L 60 20 87 L 05/07/25 21:48 36.3 C L 69 24 117/52 L 98 5 05/07/25 21:31 36.3 C L 70 24 105/51 L 93 5 05/07/25 21:00 36.4 C L 65 26 H 115/44 L 86 L 5 05/07/25 20:00 36.4 C L 62 22 131/55 H 95 05/07/25 19:00 36.4 C L 69 23 123/51 L 97 05/07/25 18:00 36.4 C L 78 23 129/56 L 96 05/07/25 17:30 72 123/53 L
[2025-05-08 01:32] LABS: ABG BASE EXCESS -19.6 mmol/L (-2.0-3.0); ABG HCO3 8.6 mmol/L (22.0-26.0); ABG OXYGEN SATURATION 99 % (95-98); ABG PCO2 21 mmHg (34-45); ABG PH 7.21 (7.35-7.45); ABG PO2 97 mmHg (83-108)
[2025-05-08 01:33] LABS: ABG MODE OF VENTILATION ASSIST/CONTROL
[2025-05-08 01:34] LABS: ABG RESPIRATORY RATE 12 b/min; ABG TCO2 9.2 mmol/L (21.0-29.0)
[2025-05-08 01:35] LABS: ABG FRACTION OF INSPIRED O2 30.00
--- NOTE | 2025-05-08 01:35 | XRAY Report ---
PROCEDURE: XR Post ET Tube 1V CXR INDICATIONS: Line Placement TECHNIQUE: One view of the chest was acquired. COMPARISON: CXR on 05/06/2025, CT abdomen/pelvis on 05/03/2025 FINDINGS: Surgical changes and devices: Endotracheal tube with tip overlying the mid intrathoracic trachea. Right IJ nontunneled central venous catheter with tip at the superior right atrium. Lungs and pleura: Small bilateral pleural effusions. No pneumothorax. Left basilar consolidation. Mediastinum: Similar cardiomegaly. Bones and chest wall: No suspicious bony lesions. Overlying soft tissues appear unremarkable. IMPRESSION: Endotracheal tube with tip overlying the mid intrathoracic trachea. No pneumothorax Similar bilateral small pleural effusions with left basilar consolidation, likely compression atelectasis versus pneumonia. Reviewed by: Marv Sanches MD on 05/08/2025 1:32 AM PDT Approved by: Marv Sanches MD on 05/08/2025 1:32 AM PDT Station ID: [id number]
[2025-05-08 01:39] LABS: HCT - HEMATOCRIT 24.7 % (37.0-47.0); HGB - HEMOGLOBIN 7.8 g/dL (12.0-16.0); MEAN PLATELET VOLUME 9.7 fL (7.9-10.8); PLT - PLATELET COUNT 265 10^3/uL (130-450); RED CELL DISTRIBUTION WIDTH 21.8 % (12.0-15.0)
--- NOTE | 2025-05-08 01:41 | PROVIDER PROGRESS NOTE ---
Progress Note Progress Note Progress Note: General Surgery Progress Note S: I was contacted by the telehospitalist who informed me that the patient's acidosis and respiratory status was deteriorating and that she was just intubated. He wasn't sure of the plan for care and asked me for advice reg arding treatment and possible transfer to a larger facility. I explained that I would need to evaluate the patient and as such came into the hospital where I met with the ICU team and a family member. As I understand the situation, Danielle has deteriorated clinically throughout the day such that her UOP has decreased, she has continued to have the need for vasopressor support, and that her anemia worsened such that a blood transfusion was started several hours ago. A note from the daytime hospitalist states that her deteriorating clinical condition was discussed with the family late yesterday and that she was made DNR for chest compressions and defibrillation but endotracheal intubation for respiratory support was approved and as noted above, just performed. O: Sedated, not arousable, ETT in place. BP 116/53 (on vaspopressor), P 60; RR 22 before intubation Lungs - equal breath sounds; Heart - sinus rhythm; Abdomen - soft, midline incision dry, DEMETRIA 1 & 2 pulling blood tinged serous fluid; feeding jejunostomy tube is on gravity drainage and is pulling bilious fluid (therefore the duodenum is decompressed), gastric tube with minimal output UOP scant Post-intubation CXR performed at my request - tip of ETT above gwen, no evidence of pneumothorax, small pleural effusions; mild cardiomegaly, central line in SVC; No evidence of intra-abdominal free air Labs: Serum K 5.6 at 2200 yesterday Hgb 5.6 at 2200 yesterday - patient is receiving the first of two units of PRBC Today (0100): WBC 20.6k; H&H 7.8/24.7; Plt 265K CMP, ABG pending A: Post-op clinical deterioration with evidence of multisystem organ failure (pulmonary, renal, cardiac). - Respiratory failure and metabolic acidosis - Anemia - Renal failure - Hypotension - Severe protein-calorie malnutrition - No evidence of a post-op bile leak or recurrent perforation that would require operative intervention at this time. - DNR for CPR/Defib active P: Continue supportive care given DNR limitations. I explained to a family member that her prognosis was grave and that we would do everything possible to make her comfortable while managing her multi-system organ failure but in the event of cardiac arrest, he understood that no interventions other than medications will be initiated. We discussed transfer to another facility which is not recommended at this time due to her critical and unstable clinical status and the family understands and agrees. She does not appear to have recurrent intra-abdominal issues that warrant consideration for surgical intervention. Magdiel Lehman MD, [facility] General Surgery Service
[2025-05-08 01:52] LABS: ABNORMAL LYMPHS % (MANUAL) 0 %; EOSINOPHILS # (MANUAL) 0.0 10^3/uL (0-0.7); MONOCYTES # (MANUAL) 0.0 10^3/uL (0.0-1.0)
[2025-05-08 02:06] LABS: BAND NEUTROPHILS % (MANUAL) 1 %; BASOPHILS # (MANUAL) 0.2 10^3/uL (0-0.1); BASOPHILS % (MANUAL) 1 %; LYMPHOCYTES # (MANUAL) 1.0 10^3/uL (1.5-3.5); LYMPHOCYTES % (MANUAL) 5 %; NEUTROPHILS # (MANUAL) 19.4 10^3/uL (1.5-6.6); NUCLEATED RBC (MANUAL) 2 %
[2025-05-08 02:09] LABS: ALT ALANINE AMINOTRANSFERASE 18.0 IU/L (10-60); AST ASPARTATE AMINOTRANSFERASE 24.0 IU/L (10-42); BUN - BLOOD UREA NITROGEN 37.0 mg/dL (6-20); CARBON DIOXIDE - CO2 13.0 mmol/L (21-32); CREATININE 1.3 mg/dL (0.6-1.3); GFR - MDRD 41.0 (>89)
[2025-05-08 02:10] LABS: PLATELET ESTIMATE, MANUAL NORMAL (130-450,000) (NORMAL); PLATELET MORPHOLOGY NORMAL APPEARANCE (NORMAL); WBC MORPHOLOGY (MULTIPLE) 1+ SMUDGE CELLS (NORMAL)
[2025-05-08] MEDS: FUROSEMIDE 40 MG/4 ML VIAL IVP STA (03:05)
[2025-05-08 05:17] LABS: HCT - HEMATOCRIT 23.2 % (37.0-47.0); HGB - HEMOGLOBIN 7.5 g/dL (12.0-16.0); MEAN PLATELET VOLUME 9.9 fL (7.9-10.8); NRBC ABSOLUTE COUNT (AUTO) 0.09 x10^3/uL; NUCLEATED RED BLOOD CELLS AUTO 0.5 /100WBC; PLT - PLATELET COUNT 262 10^3/uL (130-450); RED CELL DISTRIBUTION WIDTH 21.6 % (12.0-15.0)
[2025-05-08 05:29] LABS: BUN - BLOOD UREA NITROGEN 39.0 mg/dL (6-20); CARBON DIOXIDE - CO2 16.0 mmol/L (21-32); CREATININE 1.3 mg/dL (0.6-1.3); GFR - MDRD 41.0 (>89)
[2025-05-08 05:57] LABS: ABG BASE EXCESS -11.5 mmol/L (-2.0-3.0); ABG FRACTION OF INSPIRED O2 30.00; ABG HCO3 14.1 mmol/L (22.0-26.0); ABG MODE OF VENTILATION ASSIST/CONTROL; ABG OXYGEN SATURATION 99 % (95-98); ABG PCO2 24 mmHg (34-45); ABG PH 7.37 (7.35-7.45); ABG PO2 113 mmHg (83-108); ABG RESPIRATORY RATE 12 b/min; ABG TCO2 14.8 mmol/L (21.0-29.0)
[2025-05-08] MEDS: PANTOPRAZOLE 40 MG VIAL IVP SCH (06:32)
--- NOTE | 2025-05-08 07:22 | PROVIDER PROGRESS NOTE ---
Subjective Prog Note Date Prog Note Date: 05/08/25 Prog Note Time: 07:21 Subjective Subjective: Patient decompensated overnight. Appreciate gymnastics coach or instructor and MIESHA for assisting. She is now intubated in the ICU. Her pressor requirement is coming down. She is getting some IV Lasix, and having some modest urine output. Still very edematous. Her acidosis is resolved as of this morning. Her lactate is downtrending. Remainder of her lab workup for this morning reveals mildly improved leukocytosis down to 18.9. Hemoglobin now 7.5. Her drains have slowed down astonishingly. She is having 50 cc or so out of each. Serosanguineous. Maintaining normal oxygen saturations, reducing her tidal volume to 350 from 400. Discussed with nutrition, and she is getting more than her caloric needs are given her size, reducing her TPN rate to reduce her fluid load. Later labs today do reveal that she has a recurrent anemia requiring transfusion. This was performed. She also is having significant sanguinous output from her old DEMETRIA drain site. Surgery came to bedside and was able to apply a stitch to the area, but before that we were able to drain probably close to 500 cc of serosanguineous fluid from her left abdomen. Long conversation with his family today. They are understanding that she is critically ill. Acknowledged that she may likely . Current Medications Current Medications Current Medications: Current Medications Generic Name Dose Route Start Last Admin Trade Name Freq PRN Reason Stop Dose Admin Chlorhexidine Gluconate 15 ml 05/08/25 09:00 Chlorhexidine Gluconate 15 Ml Udc PO BID CINDY Furosemide 10 mg 05/07/25 09:00 05/07/25 08:52 Furosemide 40 Mg/4 Ml Vial IVP Not Given DAILY CINDY Heparin Sodium (Porcine) 5,000 unit 05/04/25 09:00 05/07/25 22:22 Heparin 5,000 Unit/Ml Vial SUBQ Not Given BID CINDY Hydromorphone HCl 1 mg 05/06/25 21:59 05/07/25 21:49 Hydromorphone 0.5 Mg/0.5 Ml Syringe IVP 0.5 mg Q2H PRN Administration Severe Pain (Level 7-10) Fluconazole 100 mls @ 100 mls/hr 04/26/25 18:00 05/07/25 19:07 Diflucan 200 Mg/100 Ml IV Infused Q24H CINDY Infusion Acetaminophen 1,000 mg in 100 mls @ 400 mls/hr 04/27/25 12:00 05/08/25 04:51 Acetaminophen IV Not Given Q8H CINDY Norepinephrine/Sodium Chloride 8 mg in 250 mls @ 15 mls/hr 05/06/25 09:00 05/08/25 06:38 Levophed 8 Mg/250-0.9% Nacl IV 10 mcg/min .[id number] CINDY 18.75 mls/hr Protocol Titration 8 MCG/MIN Piperacillin Sod/Tazobactam 100 mls @ 25 mls/hr 05/06/25 12:00 05/08/25 05:37 Sod 3.375 gm/ Sodium Chloride IV 25 mls/hr Q8H CINDY Administration Levetiracetam 500 mg/ Sodium 105 mls @ 400 mls/hr 05/06/25 21:00 05/07/25 20:40 Chloride IV Infused BID CINDY Infusion Fat Emulsion Intravenous 250 mls @ 21 mls/hr 05/07/25 19:00 05/07/25 18:17 Intralipid 20% IV 21 mls/hr 1900 [facility] Administration Multivitamins 10 ml/ Zinc/ 2,011 mls @ 83 mls/hr 05/07/25 19:00 05/07/25 18:14 Copper/Manganese/Selenium 1 ml IV 83 mls/hr / Amino Acids/Dextrose 1900 CINDY Administration Protocol Vasopressin 20 unit/ Dextrose 100 mls @ 9 mls/hr 05/07/25 19:00 05/08/25 05:47 IV 0.03 unit/min .[id number] CINDY 9 mls/hr 0.03 UNIT/MIN Administration Meropenem 1 gm/ Sodium 100 mls @ 200 mls/hr 05/07/25 23:00 05/08/25 06:31 Chloride IV 200 mls/hr Q8H CINDY Administration Fluconazole 100 mls @ 100 mls/hr 05/08/25 09:00 Diflucan 200 Mg/100 Ml IV DAILY CINDY Propofol 1,000 mg in 100 mls @ 3.24 mls/hr 05/08/25 01:00 05/08/25 07:01 Diprivan IV 15 mcg/kg/min .[id number] CINDY 4.86 mls/hr Protocol Titration 10 MCG/KG/MIN Lorazepam 0.5 mg 05/07/25 22:06 05/07/25 22:23 Lorazepam 2 Mg/Ml Vial IVP 0.5 mg Q2H PRN Administration tachypnea Metoprolol Tartrate 2.5 mg 05/06/25 22:00 05/08/25 05:42 Metoprolol 5 Mg/5 Ml Vial IVP Not Given TID CINDY Ondansetron HCl 4 mg 04/26/25 17:08 Ondansetron Odt 4 Mg Tablet TL Q6HR PRN Nausea / Vomiting Ondansetron HCl 4 mg 04/26/25 17:08 Ondansetron 4 Mg/2 Ml Vial IVP Q6HR PRN Nausea / Vomiting Oxycodone HCl 5 mg 05/04/25 08:13 05/06/25 08:03 Oxycodone 5 Mg Tablet FT 5 mg Q4HR PRN Administration Moderate Pain (Level 4-6) Pantoprazole Sodium 40 mg 04/26/25 21:00 05/07/25 20:23 Pantoprazole 40 Mg Vial IVP 40 mg BID CINDY Administration Pantoprazole Sodium 40 mg 05/08/25 07:00 05/08/25 06:32 Pantoprazole 40 Mg Vial IVP 40 mg QDAC CINDY Administration Polyethylene Glycol 17 gm 04/29/25 10:32 04/29/25 17:05 Polyethylene Glycol 3350 17 Gm Packet JT 17 gm DAILY PRN Administration Bowel Protocol Simethicone 80 mg 05/04/25 08:12 05/06/25 07:54 Simethicone 40 Mg/0.6 Ml 30 Ml Bottle JT 80 mg Q6HR PRN Administration Gas Sodium Chloride 10 ml 04/26/25 17:08 05/08/25 04:03 Sodium Chloride Flush 0.9% 10 Ml Syringe IVP 10 ml 0100,0900,1700 CINDY Administration Sodium Chloride 10 ml 04/26/25 17:08 05/05/25 04:20 Sodium Chloride Flush 0.9% 10 Ml Syringe IVP 10 ml PRN PRN Administration NEEDED PER PROVIDER ORDERS Zinc Oxide 113 gm 04/27/25 04:26 05/07/25 11:53 Cod Liver Oil/Zinc Oxide 113 Gm Tube TOP 1 applic PRN PRN Administration Skin Care Objective Vital Signs/Intake & Output Reviewed Vital Signs: Yes Vital Signs: Vital Signs x48h Temp Pulse Pulse Resp BP Pulse Ox 05/08/25 06:00 37 C 60 13 108/42 L 97 05/08/25 05:08 60 05/08/25 05:00 36.2 C L 60 12 116/48 L 97 05/08/25 04:00 35.7 C L 60 12 119/50 L 98 05/08/25 03:06 63 05/08/25 03:00 35.7 C L 60 12 132/55 H 97 05/08/25 02:00 35.9 C L 61 12 94 05/08/25 01:00 62 05/08/25 00:14 60 05/08/25 00:00 36.1 C L 60 25 H 116/53 L 98 Intake & Output: Intake & Output 05/05/25 05/06/25 05/07/25 05/08/25 23:59 23:59 23:59 23:59 Intake Total 2501 / 2501 3387 / 3387 3882 / 3882 794 / 794 Output Total 2646 / 2646 1330 / 1330 535 / 535 265 / 265 Balance -145 / -145 2056 / 205 3347 / 3347 529 / 529 Weight (kg) 51.5 kg 51 kg 54 kg 56 kg Objective Comments/Other: GEN: Intubated and sedated. Restraints in place. Opens eyes to aggressive stimuli. HEENT: NC/AT, normal appearance of external ears and nose. Cardiac: Irregular rhythm, rate controlled. No JVD. Edematous in his lower extremities, abdomen, hands. Pulm: Diffuse rales in the lungs. Having occasional "grunting" breaths. No cough. Abdomen: Soft, nondistended. Tender around her incision sites. G-tube and J-tube both to gravity. 2 DEMETRIA drains in the right with serosanguineous fluid. Prior incision in the LLQ with copious serosangionous drainage. Extremities: Chronic left-sided deficits, and left upper extremity contracture. Neuro: Face symmetric, CN II through XII intact grossly. Chronic and stable left-sided deficits. Psych: Mood euthymic. Affect normal. Lab Results 05/08/25 14:50 05/08/25 14:50 Other Labs: Lab Results x24hrs 10/01/2505/08/25 05/08/25 Range/Units 06:20 05:45 05:01 WBC 18.9 H (4.8-10.8) x10^3/uL RBC 2.70 L (4.20-5.40) 10^6/uL Hgb 7.5 L (12.0-16.0) g/dL Hct 23.2 L (37.0-47.0) % MCV 85.9 (81.0-99.0) fL MCH 27.8 (27.0-31.0) pg MCHC 32.3 (32.0-36.0) g/dL RDW 21.6 H (12.0-15.0) % Plt Count 262 (130-450) 10^3/uL MPV 9.9 (7.9-10.8) fL Neut # (Auto) 17.1 H Lymph # (Auto) 0.8 L Bullitt # (Auto) 0.7 Eos # (Auto) 0.0 Baso # (Auto) 0.0 Absolute Nucleated RBC 0.09 Total Counted Band Neuts % (Manual) (0 - 10) % Abnorm Lymph % (Manual) % Nucleated RBC % 0.5 Neutrophils # (Manual) (1.5-6.6) 10^3/uL Lymphocytes # (Manual) (1.5-3.5) 10^3/uL Monocytes # (Manual) (0.0-1.0) 10^3/uL Eosinophils # (Manual) (0-0.7) 10^3/uL Basophils # (Manual) (0-0.1) 10^3/uL Nucleated RBCs % Differential Comment WBC Morphology (NORMAL) Platelet Estimate (NORMAL) Platelet Morphology (NORMAL) RBC Morph Micro Appear (NORMAL) Bld Gas Analysis Time 0549 Sample Site A-LINE ABG pH 7.37 (7.35-7.45) ABG pCO2 24 L (34-45) mmHg ABG pO2 113 H (83-108) mmHg ABG HCO3 14.1 L (22.0-26.0) mmol/L ABG Total CO2 14.8 L (21.0-29.0) mmol/L ABG O2 Saturation 99 H (95-98) % ABG Base Excess -11.5 L (-2.0-3.0) mmol/L Marlon Test POSITIVE Respiration Rate 12 b/min O2 Delivery Device VENTILATOR O2 Liters/Min LPM Vent Mode ASSIST/CONTROL FiO2 30.00 Tidal Volume 400 mL PEEP 5 cmH2O EPAP cmH2O IPAP cmH2O Sodium 126 L (135-145) mmol/L Potassium 5.0 H (3.5-4.5) mmol/L Chloride 100 L (101-111) mmol/L Carbon Dioxide 16 L (21-32) mmol/L Anion Gap 10.0 (6-13) BUN 39 H (6-20) mg/dL Creatinine 1.3 (0.6-1.3) mg/dL Estimated GFR (MDRD) 41 L (>89) Glucose 183 H (74-104) mg/dL Lactic Acid 2.9 H (0.5-2.2) mmol/L Calcium 7.0 L (8.5-10.3) mg/dL Total Bilirubin (0.2-1.0) mg/dL AST (10-42) IU/L ALT (10-60) IU/L Alkaline Phosphatase (42-121) IU/L B-Natriuretic Peptide (5-100) pg/mL Total Protein (6.4-8.9) g/dL Albumin (3.2-5.5) g/dL Globulin (2.1-4.2) g/dL Albumin/Globulin Ratio (1.0-2.2) Prealbumin (17-34) mg/dL Triglycerides mg/dL Blood Type Antibody Screen Crossmatch IS Only 05/08/25 05/08/25 05/08/25 Range/Units 01:20 01:20 01:20 WBC (4.8-10.8) x10^3/uL RBC (4.20-5.40) 10^6/uL Hgb (12.0-16.0) g/dL Hct (37.0-47.0) % MCV (81.0-99.0) fL MCH (27.0-31.0) pg MCHC (32.0-36.0) g/dL RDW (12.0-15.0) % Plt Count (130-450) 10^3/uL MPV (7.9-10.8) fL Neut # (Auto) Lymph # (Auto) Bullitt # (Auto) Eos # (Auto) Baso # (Auto) Absolute Nucleated RBC Total Counted Band Neuts % (Manual) (0 - 10) % Abnorm Lymph % (Manual) % Nucleated RBC % Neutrophils # (Manual) (1.5-6.6) 10^3/uL Lymphocytes # (Manual) (1.5-3.5) 10^3/uL Monocytes # (Manual) (0.0-1.0) 10^3/uL Eosinophils # (Manual) (0-0.7) 10^3/uL Basophils # (Manual) (0-0.1) 10^3/uL Nucleated RBCs % Differential Comment WBC Morphology (NORMAL) Platelet Estimate (NORMAL) Platelet Morphology (NORMAL) RBC Morph Micro Appear NRBC'S 1+ SCHISTOCYTES 1+ POLYCHROMASIA (NORMAL) Bld Gas Analysis Time Sample Site ABG pH (7.35-7.45) ABG pCO2 (34-45) mmHg ABG pO2 (83-108) mmHg ABG HCO3 (22.0-26.0) mmol/L ABG Total CO2 (21.0-29.0) mmol/L ABG O2 Saturation (95-98) % ABG Base Excess (-2.0-3.0) mmol/L Marlon Test Respiration Rate b/min O2 Delivery Device O2 Liters/Min LPM Vent Mode FiO2 Tidal Volume mL PEEP cmH2O EPAP cmH2O IPAP cmH2O Sodium 128 L (135-145) mmol/L Potassium 5.5 H (3.5-4.5) mmol/L Chloride 102 (101-111) mmol/L Carbon Dioxide 13 L (21-32) mmol/L Anion Gap 13.0 (6-13) BUN 37 H (6-20) mg/dL Creatinine 1.3 (0.6-1.3) mg/dL Estimated GFR (MDRD) 41 L (>89) Glucose 144 H (74-104) mg/dL Lactic Acid 8.1 H* (0.5-2.2) mmol/L Calcium 7.0 L (8.5-10.3) mg/dL Total Bilirubin 1.3 H (0.2-1.0) mg/dL AST 24 (10-42) IU/L ALT 18 (10-60) IU/L Alkaline Phosphatase 241 H (42-121) IU/L B-Natriuretic Peptide 1086 H (5-100) pg/mL Total Protein 3.9 L (6.4-8.9) g/dL Albumin 2.0 L (3.2-5.5) g/dL Globulin 1.9 L (2.1-4.2) g/dL Albumin/Globulin Ratio 1.1 (1.0-2.2) Prealbumin (17-34) mg/dL Triglycerides mg/dL Blood Type Antibody Screen Crossmatch IS Only 05/08/25 05/08/25 05/08/25 Range/Units 01:20 01:20 01:20 WBC 20.6 H (4.8-10.8) x10^3/uL RBC 2.81 L (4.20-5.40) 10^6/uL Hgb 7.8 L (12.0-16.0) g/dL Hct 24.7 L (37.0-47.0) % MCV 87.9 (81.0-99.0) fL MCH 27.8 (27.0-31.0) pg MCHC 31.6 L (32.0-36.0) g/dL RDW 21.8 H (12.0-15.0) % Plt Count 265 (130-450) 10^3/uL MPV 9.7 (7.9-10.8) fL Neut # (Auto) Not Reportable Lymph # (Auto) Not Reportable Bullitt # (Auto) Not Reportable Eos # (Auto) Not Reportable Baso # (Auto) Not Reportable Absolute Nucleated RBC Not Reportable Total Counted 100 Band Neuts % (Manual) 1 (0 - 10) % Abnorm Lymph % (Manual) 0 % Nucleated RBC % Not Reportable Neutrophils # (Manual) 19.4 H (1.5-6.6) 10^3/uL Lymphocytes # (Manual) 1.0 L (1.5-3.5) 10^3/uL Monocytes # (Manual) 0.0 (0.0-1.0) 10^3/uL Eosinophils # (Manual) 0.0 (0-0.7) 10^3/uL Basophils # (Manual) 0.2 H (0-0.1) 10^3/uL Nucleated RBCs 2 % Differential Comment MANUAL DIFFERENTIAL WBC Morphology 1+ SMUDGE CELLS (NORMAL) Platelet Estimate NORMAL (130-450,000) (NORMAL) Platelet Morphology NORMAL APPEARANCE (NORMAL) RBC Morph Micro Appear 1+ OVALOCYTES 1+ HYPOCHROMASIA 1+ ANISOCYTOSIS (NORMAL) Bld Gas Analysis Time Sample Site ABG pH (7.35-7.45) ABG pCO2 (34-45) mmHg ABG pO2 (83-108) mmHg ABG HCO3 (22.0-26.0) mmol/L ABG Total CO2 (21.0-29.0) mmol/L ABG O2 Saturation (95-98) % ABG Base Excess (-2.0-3.0) mmol/L Marlon Test Respiration Rate b/min O2 Delivery Device O2 Liters/Min LPM Vent Mode FiO2 Tidal Volume mL PEEP cmH2O EPAP cmH2O IPAP cmH2O Sodium (135-145) mmol/L Potassium (3.5-4.5) mmol/L Chloride (101-111) mmol/L Carbon Dioxide (21-32) mmol/L Anion Gap (6-13) BUN (6-20) mg/dL Creatinine (0.6-1.3) mg/dL Estimated GFR (MDRD) (>89) Glucose (74-104) mg/dL Lactic Acid (0.5-2.2) mmol/L Calcium (8.5-10.3) mg/dL Total Bilirubin (0.2-1.0) mg/dL AST (10-42) IU/L ALT (10-60) IU/L Alkaline Phosphatase (42-121) IU/L B-Natriuretic Peptide (5-100) pg/mL Total Protein (6.4-8.9) g/dL Albumin (3.2-5.5) g/dL Globulin (2.1-4.2) g/dL Albumin/Globulin Ratio (1.0-2.2) Prealbumin (17-34) mg/dL Triglycerides mg/dL Blood Type Antibody Screen Crossmatch IS Only 05/08/25 05/07/25 05/07/25 Range/Units 01:15 23:45 21:25 WBC (4.8-10.8) x10^3/uL RBC (4.20-5.40) 10^6/uL Hgb (12.0-16.0) g/dL Hct (37.0-47.0) % MCV (81.0-99.0) fL MCH (27.0-31.0) pg MCHC (32.0-36.0) g/dL RDW (12.0-15.0) % Plt Count (130-450) 10^3/uL MPV (7.9-10.8) fL Neut # (Auto) Lymph # (Auto) Bullitt # (Auto) Eos # (Auto) Baso # (Auto) Absolute Nucleated RBC Total Counted Band Neuts % (Manual) (0 - 10) % Abnorm Lymph % (Manual) % Nucleated RBC % Neutrophils # (Manual) (1.5-6.6) 10^3/uL Lymphocytes # (Manual) (1.5-3.5) 10^3/uL Monocytes # (Manual) (0.0-1.0) 10^3/uL Eosinophils # (Manual) (0-0.7) 10^3/uL Basophils # (Manual) (0-0.1) 10^3/uL Nucleated RBCs % Differential Comment WBC Morphology (NORMAL) Platelet Estimate (NORMAL) Platelet Morphology (NORMAL) RBC Morph Micro Appear (NORMAL) Bld Gas Analysis Time 5809 1309 3936 Sample Site A-LINE A-LINE A-LINE ABG pH 7.21 L 7.14 L* 7.21 L (7.35-7.45) ABG pCO2 21 L 23 L 22 L (34-45) mmHg ABG pO2 97 117 H 121 H (83-108) mmHg ABG HCO3 8.6 L 7.7 L 8.9 L (22.0-26.0) mmol/L ABG Total CO2 9.2 L* 8.4 L* 9.6 L* (21.0-29.0) mmol/L ABG O2 Saturation 99 H 100 H 100 H (95-98) % ABG Base Excess -19.6 L -21.5 L -19.3 L (-2.0-3.0) mmol/L Marlon Test NOT APPLICABLE NOT APPLICABLE NOT APPLICABLE Respiration Rate 12 b/min O2 Delivery Device VENTILATOR BiPAP NASAL CANNULA O2 Liters/Min 5.00 LPM Vent Mode ASSIST/CONTROL FiO2 30.00 30.00 40.00 Tidal Volume 400 mL PEEP 5 cmH2O EPAP 4 cmH2O IPAP 10 cmH2O Sodium (135-145) mmol/L Potassium (3.5-4.5) mmol/L Chloride (101-111) mmol/L Carbon Dioxide (21-32) mmol/L Anion Gap (6-13) BUN (6-20) mg/dL Creatinine (0.6-1.3) mg/dL Estimated GFR (MDRD) (>89) Glucose (74-104) mg/dL Lactic Acid (0.5-2.2) mmol/L Calcium (8.5-10.3) mg/dL Total Bilirubin (0.2-1.0) mg/dL AST (10-42) IU/L ALT (10-60) IU/L Alkaline Phosphatase (42-121) IU/L B-Natriuretic Peptide (5-100) pg/mL Total Protein (6.4-8.9) g/dL Albumin (3.2-5.5) g/dL Globulin (2.1-4.2) g/dL Albumin/Globulin Ratio (1.0-2.2) Prealbumin (17-34) mg/dL Triglycerides mg/dL Blood Type Antibody Screen Crossmatch IS Only 05/07/25 05/07/25 05/06/25 Range/Units 21:01 04:15 16:39 WBC (4.8-10.8) x10^3/uL RBC (4.20-5.40) 10^6/uL Hgb 5.9 L* (12.0-16.0) g/dL Hct (37.0-47.0) % MCV (81.0-99.0) fL MCH (27.0-31.0) pg MCHC (32.0-36.0) g/dL RDW (12.0-15.0) % Plt Count (130-450) 10^3/uL MPV (7.9-10.8) fL Neut # (Auto) Lymph # (Auto) Bullitt # (Auto) Eos # (Auto) Baso # (Auto) Absolute Nucleated RBC Total Counted Band Neuts % (Manual) (0 - 10) % Abnorm Lymph % (Manual) % Nucleated RBC % Neutrophils # (Manual) (1.5-6.6) 10^3/uL Lymphocytes # (Manual) (1.5-3.5) 10^3/uL Monocytes # (Manual) (0.0-1.0) 10^3/uL Eosinophils # (Manual) (0-0.7) 10^3/uL Basophils # (Manual) (0-0.1) 10^3/uL Nucleated RBCs % Differential Comment WBC Morphology (NORMAL) Platelet Estimate (NORMAL) Platelet Morphology (NORMAL) RBC Morph Micro Appear (NORMAL) Bld Gas Analysis Time Sample Site ABG pH (7.35-7.45) ABG pCO2 (34-45) mmHg ABG pO2 (83-108) mmHg ABG HCO3 (22.0-26.0) mmol/L ABG Total CO2 (21.0-29.0) mmol/L ABG O2 Saturation (95-98) % ABG Base Excess (-2.0-3.0) mmol/L Marlon Test Respiration Rate b/min O2 Delivery Device O2 Liters/Min LPM Vent Mode FiO2 Tidal Volume mL PEEP cmH2O EPAP cmH2O IPAP cmH2O Sodium (135-145) mmol/L Potassium 5.6 H (3.5-4.5) mmol/L Chloride (101-111) mmol/L Carbon Dioxide (21-32) mmol/L Anion Gap (6-13) BUN (6-20) mg/dL Creatinine (0.6-1.3) mg/dL Estimated GFR (MDRD) (>89) Glucose (74-104) mg/dL Lactic Acid (0.5-2.2) mmol/L Calcium (8.5-10.3) mg/dL Total Bilirubin (0.2-1.0) mg/dL AST (10-42) IU/L ALT (10-60) IU/L Alkaline Phosphatase (42-121) IU/L B-Natriuretic Peptide (5-100) pg/mL Total Protein (6.4-8.9) g/dL Albumin (3.2-5.5) g/dL Globulin (2.1-4.2) g/dL Albumin/Globulin Ratio (1.0-2.2) Prealbumin 13 L (17-34) mg/dL Triglycerides 82 mg/dL Blood Type O POSITIVE Antibody Screen NEGATIVE Crossmatch IS Only See Detail Sepsis Event Note (H) Evaluation Current Stage of Sepsis: Septic shock Possible source of Sepsis: positive GI tract/intra-abdominal Sepsis Criteria Sepsis Criteria: Recorded Heart Rate greater than 90 bpm, WBC count greater than 12,000 or less than 4000, MAP less than 65 mmHg, SBP less than 90 mmHg and Renal: urine output less than 0.5ml/kg/hr for 2 hours or creatinine gr Assessment/Plan Problem List (1) Septic shock: Impression: Patient on meropenam and diflucan. IntraOp and blood cultures with no growth. Treating empirically with Zosyn for 7 days. Leukocytosis is improving. Pressor requirement is downtrending. Lactate resolving, 8.1-2.9 Source is likely intra-abdominal given perforated viscus x 2 this hospitalization. - Continue broad-spectrum antibiotics with meropenem - Consider reculture if not improving - CBC a.m. - Pressors as below (2) Perforated chronic gastric ulcer: (3) Status post exploratory laparotomy: (4) Complete gastric outlet obstruction: (5) Jejunostomy tube present: (6) Gastrostomy tube present: Impression: Recall that she had pyloric exclusion initially with Talha patch repair on 04/26. She had a second ex lap with repatching on 05/06. She has remained critically ill since second repair. She had mounting white count, evidence of yeast in her abdomen. She is on Diflucan. Started back on Zosyn with worsening leukocytosis and abdominal pain on 05/07. With worsening leukocytosis 05/07 she was broadened to meropenem. Shock as below Holding off on tube feeds through either J-tube or G-tube until surgical site has time to heal, tentatively around 05/11 - Defer to surgery on when to return to tube feeds - Started on TPN without lytes as hers are elevated. - Pain management with parenteral narcotics - Cleaned up antimicrobial orders, patient is now on meropenem and Diflucan, end of therapy will be determined clinically. (7) Shock: Impression: Hypovolemic and distributive shock. She is on antibiotics as above. She got fluids yesterday including blood in the OR. Her hemoglobin is holding stable. No obvious signs of bleeding, having some serosanguineous drainage into her DEMETRIA drains. Despite this, she is somewhat volume overloaded, she is not making urine. - Continue antibiotics as above - Edematous as below, avoiding extra fluids - Continue Vasopressin at 0.03, Levophed, titrate to urine output of around 25 cc/h - Holding other vasoactive medications (8) Metabolic acidosis: Impression: Patient had a profound metabolic acidosis, likely as a result of her septic state. ABG prior to intubation went 7.2-7.1. She was intubated overnight from 05/07 to 05/08. She has since been on the ventilator and able to normalize her acid-base balance. - Continue ventilation for now, appreciate RT - Sedated with propofol. Dilaudid and lorazepam pushes for comfort - Likely trial of extubation if she passes SBT on 05/09 (9) Anemia: Impression: Patient has a chronic history of anemia. She has had episodes of what appears to be hemolytic anemia during this hospitalization. D-dimer this afternoon was >1000. LDH is normal. Potassium is elevated. She also may be losing some blood into her surgical site, other drains are not putting out significant amounts. Received 1 unit of blood 05/07 overnight, 1 unit of blood 05/08 - Check CBC again this evening, transfuse Hgb less than 7 - CBC a.m. - Holding SQH tonight while she is continuing to lose blood - I would not start on steroids given fungal infection and TPN (10) HFrEF (heart failure with reduced ejection fraction): Impression: She has been increasingly more edematous with the fluid she has been receiving since her second operation on 05/06. She was given Lasix challenge today and pressors as above. She has graciously started making some urine. She has had tenuous fluid shifts throughout this hospitalization and received a lot of fluid with her surgery. She became volume overloaded on 05/01 requiring IV Lasix. An echo was performed at that time which revealed an EF of 45 to 50% she also has tricuspid, mitral regurgitation with moderate pulmonary hypertension. - Continue Lasix 40 mg daily, monitor renal function - Pressors to maintain urine output of at least 25 cc/h - TPN as below - Trying to limit extraneous fluids - Strict I/O (11) Protein calorie malnutrition: Impression: Patient with evidence of protein calorie malnutrition. She came in with subcutaneous fat loss as well as muscle wasting. She has had low caloric intake throughout her 2-week hospitalization. Many times not exceeding 50% of her recommended caloric intake. She has gained some weight here, but I suspect most of this is fluid retention. Her albumin and prealbumin remain quite low. - She been started on TPN, 70 mL/h - Lipids every day while on propofol - Her nutrition calorie goal 1440 per nutrition (12) Acute metabolic encephalopathy: Impression: Had resolved prior to intubation. Patient is now intubated and sedated. Patient became agitated on 04/30 requiring Ativan which caused somnolence and may have contributed to some initial soft pressures. Code stroke was called but no intracranial hemorrhage or new focal deficits noted. She has a history of prior CVA as below. There is extensive encephalomalacia. Teleneurology recommended starting Keppra with prior hospitalist and now she is on 500 mg twice daily. Per teleneurology recommendations, I EEG can be considered if she remained persistently encephalopathic, however she is clearing. No focal neurologic deficits. - Continue Keppra 500 mg twice daily, Has been converted to IV - Treating other medical issues as above and below (13) Cerebrovascular accident (CVA): Impression: With persistent and baseline left-sided deficits and left upper extremity contracture. On Keppra as above. Not on ASA or statin historically. - Consider starting on DOAC and statin for secondary prevention if she clinically stabilizes Qualifiers: CVA mechanism: thrombosis Laterality of affected vessel: right P recerebral and cerebral artery: middle cerebral artery Qualified Code(s): I 63.311 - Cerebral infarction due to thrombosis of right middle cerebral artery (14) Afib: Impression: Rate controlled currently. On telemetry, she has had some runs of RVR. Normally on Eliquis and metoprolol Succinate 25 mg. Metoprolol succinate cannot be given through her J-tube. She has a pacemaker with pacer leads apparent on telemetry and previous EKGs. Working appropriately. - Holding SQH as above. Resume DOAC if and when she clinically stabilizes. - Continues on Lopressor 2.5 3 times daily for rate control, Minimal hemodynamic effect But was having significant ectopy when it was held Qualifiers: Atrial fibrillation type: unspecified Qualified Code(s): I48.91 - Unspecified atrial fibrillation (15) Diabetes mellitus: Impression: Seemingly diet controlled. Last A1c of 5.1%. Qualifiers: Diabetes mellitus complication status: without complication Diabetes mellitus correction insulin use: without correction use Diabetes mellitus type: t ype 2 Qualified Code(s): E11.9 - Type 2 diabetes mellitus without complications
[2025-05-08] MEDS: CHLORHEXIDINE GLUCONATE 15 ML UDC PO SCH (08:14)
[2025-05-08] MEDS: FLUCONAZOLE 200 MG/100 ML 100 ML IV SCH (08:19)
--- NOTE | 2025-05-08 09:23 | PROVIDER PROGRESS NOTE ---
Progress Note Progress Note Progress Note: General Surgery Progress Note S: Intubated, sedated. O: VS: 117/44; P 64; RR 14; O2 Sat 98% Abd - soft; midline dressing dry; right sided santa 1 and 2 with blood tinged serosanguinous fuid; Jejunostomy with bilious fluid; G-tube scant drainage H&H 7.5/23.2 afte 1 unit PRBC WBC 18.9 K Plt 262K ABG pH 7.37; pCO2 24; pO2 113; PEEP 5; TV 400; RR 12; FiO2 30 Na 126; K 5.0; BUN 39; Cr 1.3; LA 2.9 (down from 8.1 earlier this morning) A: No clinical evidence of a recurrent ulcer leak (drains are non-bilious). Bilious fluid in the jejunostomy means the duodenum is not obstructed. The patient remains anemic and in cardiogenic shock requiring continuous vasopressor support. She is now passing some urine which is encouraging. P: No indication for operative intervention at this time. Would continue TPN for nutritional support and continue to to use the jejunostomy as a drain to vent the duodenum. Surgery will follow. Magdiel Lehman MD, FACS General Surgery Service
[2025-05-08 15:15] LABS: HCT - HEMATOCRIT 21.2 % (37.0-47.0); MEAN PLATELET VOLUME 9.7 fL (7.9-10.8); NRBC ABSOLUTE COUNT (AUTO) 0.04 x10^3/uL; NUCLEATED RED BLOOD CELLS AUTO 0.3 /100WBC; PLT - PLATELET COUNT 283 10^3/uL (130-450); RED CELL DISTRIBUTION WIDTH 21.4 % (12.0-15.0)
[2025-05-08 15:17] LABS: HGB - HEMOGLOBIN 6.6 g/dL (12.0-16.0)
[2025-05-08 15:25] LABS: BUN - BLOOD UREA NITROGEN 45.0 mg/dL (6-20); CARBON DIOXIDE - CO2 22.0 mmol/L (21-32); CREATININE 1.2 mg/dL (0.6-1.3); GFR - MDRD 45.0 (>89)
[2025-05-08 15:30] LABS: INR 1.2 (0.8-1.2); PT - PROTHROMBIN TIME 13.0 secs (9.9-12.6)
--- NOTE | 2025-05-08 18:59 | PROVIDER PROGRESS NOTE ---
Progress Note Progress Note Progress Note: General Surgery Progress Note S: The nursing staff notified me that the patient was leaking ascites from the left abdominal wall where one of the two previously placed DEMETRIA drains were removed yesterday. O: Scant amount of serous fluid from the left drain site. I cleansed the skin with Betadine and placed a single 3-0 nylon suture to approximate the skin edges. A pressure dressing was placed. A: Drain site issue - resolved P: Keep pressure dressing on the site. When her nutrition improves such that the wound will seal, the suture may be removed (7-10 days). Magdiel Lehman MD, FACS General Surgery Service
[2025-05-08 20:20] LABS: HCT - HEMATOCRIT 25.5 % (37.0-47.0); HGB - HEMOGLOBIN 8.3 g/dL (12.0-16.0); MEAN PLATELET VOLUME 9.8 fL (7.9-10.8); NRBC ABSOLUTE COUNT (AUTO) 0.04 x10^3/uL; NUCLEATED RED BLOOD CELLS AUTO 0.3 /100WBC; PLT - PLATELET COUNT 274 10^3/uL (130-450); RED CELL DISTRIBUTION WIDTH 19.2 % (12.0-15.0)
[2025-05-09 04:45] LABS: HCT - HEMATOCRIT 26.0 % (37.0-47.0); HGB - HEMOGLOBIN 7.9 g/dL (12.0-16.0); MEAN PLATELET VOLUME 9.1 fL (7.9-10.8); NRBC ABSOLUTE COUNT (AUTO) 0.02 x10^3/uL; NUCLEATED RED BLOOD CELLS AUTO 0.1 /100WBC; PLT - PLATELET COUNT 258 10^3/uL (130-450); RED CELL DISTRIBUTION WIDTH 19.7 % (12.0-15.0)
[2025-05-09 04:55] LABS: VBG PH 7.448 (7.31-7.41)
[2025-05-09 05:02] LABS: ALT ALANINE AMINOTRANSFERASE 15.0 IU/L (10-60); AST ASPARTATE AMINOTRANSFERASE 19.0 IU/L (10-42); BUN - BLOOD UREA NITROGEN 47.0 mg/dL (6-20); CARBON DIOXIDE - CO2 20.0 mmol/L (21-32); CREATININE 1.0 mg/dL (0.6-1.3); GFR - MDRD 55.0 (>89); PHOSPHORUS 3.4 mg/dL (2.5-5.0)
[2025-05-09] MEDS: POTASSIUM CHLOR 20 MEQ/100 ML 20 MEQ/100 ML BAG IV ONE ×3 (06:04→17:19)
[2025-05-09] MEDS ORDERED: SODIUM CHLORIDE 0.9% 50 ML IV ONE (06:12)
[2025-05-09 06:25] LABS: ABG BASE EXCESS -5.9 mmol/L (-2.0-3.0); ABG HCO3 18.2 mmol/L (22.0-26.0); ABG OXYGEN SATURATION 100 % (95-98); ABG PCO2 26 mmHg (34-45); ABG PH 7.46 (7.35-7.45); ABG PO2 122 mmHg (83-108); ABG TCO2 19.0 mmol/L (21.0-29.0)
[2025-05-09 06:27] LABS: ABG FRACTION OF INSPIRED O2 30.00; ABG MODE OF VENTILATION ASSIST/CONTROL
[2025-05-09] MEDS ORDERED: CALCIUM CHLORIDE 1,000 MG in SODIUM CHLORIDE 0.9% 50 ML IV ONE (07:00)
--- NOTE | 2025-05-09 07:31 | PROVIDER PROGRESS NOTE ---
Progress Note Progress Note Progress Note: Hospital Day # 14 - Perforated pyloric ulcer with recurrent leak on hospital day # 11 POD # 13, Exploratory laparotomy, oversew/Talha patch perforated pyloric ulcer, gastric exclusion (stapled), gastrostomy tube placement, jejunostomy tube placement POD #3, Exploratory laparotomy, oversew/Talha patch of ulcer repair site leak, abdominal cavity washout Code Status: ETT, cardiac meds only. No chest compressions, Defibrillation ASSESSMENT/PLAN: 1) Recurrent pyloric perforation - no evidence of persistent or recurrent leak. The jejunostomy tube is serving as a small bowel vent to avoid duodenal distension. 2) Protein-Calorie malnutrition - TPN for now. Once the gastric staple line has opened, the G-tube can serve as a vent for the duodenum and jejunostomy feedings can continue 3) Anemia - currently stable after 2 units since last procedure have been infused 4) Hyperkalemia - resolved 5) Hyponatremia - probably related to TBW excess - decrease free water intake, diuresis when permitted by her hemodynamic status 6) Renal - improving 7) Respiratory - Currently tolerating assisted ventilation; <><><><><> PERTINENT INTERVAL ISSUES: Continues to require vasopressor support S: Awake, smiling, alert, recognizes me, in no pain OBJECTIVE: I/O: 3387/1330 VS: BP 105/47; P 60; RR 14; T 36.9 EXAMINATION: MENTAL STATUS: Intubated/sedated LUNGS: Clear to auscultation CARDIOVASCULAR: Heart-NSR without murmurs; ABD: Soft, Incision clean and dry; G-tube and J-tube to gravity drainage and bile is in the jejunostomy tube; Both DEMETRIA drains with old blood - no purulence or bilious fluid Gastrostomy - 200/24h DEMETRIA 1 (sub-diaphragmatic) - 21 ml/24 hrs DEMETRIA 2 (sub-hepatic) - 30 ml/24 hrs EXTREMITIES: No clubbing, cyanosis, infections SKIN: Anicteric; No rashes, lesions, ulcerations LABS: WBC 14.6; H&H 7.9/26; PLT 258K; NA 126; K 3.7; Cr 1.0; Glu 147 ABG: pH 7.46; pCO2 26; pO2 122 Vent AC; FiO2 30; TV 350; RR 12 CULTURES: Peritoneal Few Gm - rods; NG IMAGING: None today ANTIMICROBIALS: Zosyn, Diflucan PAIN CONTROL: IV Hydromorphone prn, Tylenol, Oxycodone VTEP: Chemical: Heparin, 5,000 units, SQ, Q 12 hrs Mechanical: SCD INFUSIONS: Norepinephrine titrated prn Magdiel Lehman MD, FACS General Surgery Service
[2025-05-09] MEDS: MAGNESIUM SULFATE 2 GRAM 2 GM/50 ML BAG IV ONE (07:56)
[2025-05-09] MEDS: CALCIUM GLUC 1,000MG/50ML-NACL 1,000 MG/50 ML BAG IV ONE (09:26)
[2025-05-09] MEDS: FUROSEMIDE 40 MG/4 ML VIAL IVP SCH ×2 (09:26→22:11)
--- NOTE | 2025-05-09 10:16 | PROVIDER PROGRESS NOTE ---
Subjective Subjective Subjective: This morning, patient was seen when she was intubated and sedated. Sedation was weaned off, and patient was appropriately following commands, and RSBI was less than 105 (76). We successfully extubated the patient, and she is tolerating it well. Sons were spoken to at bedside, and updated about plan of care. Diet: TPN Dispo: Likely SNF on discharge, pending clinical course DVT: Heparin subq - to be resumed tonight Code: DNR Current Medications Current Medications Current Medications: Current Medications Generic Name Dose Route Start Last Admin Trade Name Freq PRN Reason Stop Dose Admin Chlorhexidine Gluconate 15 ml 05/08/25 09:00 05/09/25 08:43 Chlorhexidine Gluconate 15 Ml Udc PO 15 ml BID CINYD Administration Furosemide 40 mg 05/09/25 09:00 05/09/25 09:26 Furosemide 40 Mg/4 Ml Vial IVP 40 mg DAILY CINDY Administration Heparin Sodium (Porcine) 5,000 unit 05/04/25 09:00 05/09/25 08:54 Heparin 5,000 Unit/Ml Vial SUBQ Not Given BID CINDY Hydromorphone HCl 1 mg 05/06/25 21:59 05/08/25 16:23 Hydromorphone 0.5 Mg/0.5 Ml Syringe IVP 1 mg Q2H PRN Administration Severe Pain (Level 7-10) Fluconazole 100 mls @ 100 mls/hr 04/26/25 18:00 05/08/25 19:53 Diflucan 200 Mg/100 Ml IV Infused Q24H CINDY Infusion Norepinephrine/Sodium Chloride 8 mg in 250 mls @ 15 mls/hr 05/06/25 09:00 05/09/25 01:11 Levophed 8 Mg/250-0.9% Nacl IV 6 mcg/min .[id number] CINDY 11.25 mls/hr Protocol Titration 8 MCG/MIN Levetiracetam 500 mg/ Sodium 105 mls @ 400 mls/hr 05/06/25 21:00 05/09/25 08:59 Chloride IV Infused BID CINDY Infusion Multivitamins 10 ml/ Zinc/ 2,011 mls @ 70 mls/hr 05/07/25 19:00 05/08/25 18:28 Copper/Manganese/Selenium 1 ml IV 70 mls/hr / Amino Acids/Dextrose 1900 CINDY Administration Protocol Vasopressin 20 unit/ Dextrose 100 mls @ 9 mls/hr 05/07/25 19:00 05/09/25 04:33 IV 0.03 unit/min .[id number] CINDY 9 mls/hr 0.03 UNIT/MIN Administration Meropenem 1 gm/ Sodium 100 mls @ 200 mls/hr 05/07/25 23:00 05/09/25 07:23 Chloride IV Infused Q8H [facility] Infusion Propofol 1,000 mg in 100 mls @ 3.24 mls/hr 05/08/25 01:00 05/08/25 21:15 Diprivan IV 20 mcg/kg/min .[id number] CINDY 6.48 mls/hr Protocol Titration 10 MCG/KG/MIN Lorazepam 0.5 mg 05/07/25 22:06 05/07/25 22:23 Lorazepam 2 Mg/Ml Vial IVP 0.5 mg Q2H PRN Administration tachypnea Metoprolol Tartrate 2.5 mg 05/06/25 22:00 05/09/25 06:04 Metoprolol 5 Mg/5 Ml Vial IVP 2.5 mg TID CINDY Administration Ondansetron HCl 4 mg 04/26/25 17:08 Ondansetron Odt 4 Mg Tablet TL Q6HR PRN Nausea / Vomiting Ondansetron HCl 4 mg 04/26/25 17:08 Ondansetron 4 Mg/2 Ml Vial IVP Q6HR PRN Nausea / Vomiting Pantoprazole Sodium 40 mg 04/26/25 21:00 05/09/25 08:43 Pantoprazole 40 Mg Vial IVP 40 mg BID CINDY Administration Polyethylene Glycol 17 gm 04/29/25 10:32 04/29/25 17:05 Polyethylene Glycol 3350 17 Gm Packet JT 17 gm DAILY PRN Administration Bowel Protocol Simethicone 80 mg 05/04/25 08:12 05/06/25 07:54 Simethicone 40 Mg/0.6 Ml 30 Ml Bottle JT 80 mg Q6HR PRN Administration Gas Sodium Chloride 10 ml 04/26/25 17:08 05/09/25 08:43 Sodium Chloride Flush 0.9% 10 Ml Syringe IVP 10 ml 0100,0900,1700 CINDY Administration Sodium Chloride 10 ml 04/26/25 17:08 05/08/25 21:16 Sodium Chloride Flush 0.9% 10 Ml Syringe IVP 10 ml PRN PRN Administration NEEDED PER PROVIDER ORDERS Zinc Oxide 113 gm 04/27/25 04:26 05/09/25 08:30 Cod Liver Oil/Zinc Oxide 113 Gm Tube TOP 1 applic PRN PRN Administration Skin Care Objective Vital Signs/Intake & Output Reviewed Vital Signs: Yes Vital Signs: Vital Signs x48h Temp Pulse Pulse Resp BP BP BP 05/09/25 09:45 60 05/09/25 08:30 60 116/69 125/60 05/09/25 07:15 60 05/09/25 07:00 98.2 F 61 14 120/60 05/09/25 06:18 60 05/09/25 06:04 60 122/57 L 05/09/25 06:00 98.1 F 61 14 116/56 L 05/09/25 05:00 98.2 F 60 15 115/54 L 05/09/25 04:30 60 05/09/25 04:00 98.2 F 60 14 122/56 L 05/09/25 03:00 98.2 F 60 15 118/55 L Pulse Ox 05/09/25 09:45 05/09/25 08:30 05/09/25 07:15 05/09/25 07:00 97 05/09/25 06:18 05/09/25 06:04 05/09/25 06:00 99 05/09/25 05:00 99 05/09/25 04:30 05/09/25 04:00 97 05/09/25 03:00 98 Intake & Output: Intake & Output 05/06/25 05/07/25 05/08/25 05/09/25 23:59 23:59 23:59 23:59 Intake Total 3387 / 3387 3882 / 3882 5509 / 5509 480 / 480 Output Total 1330 / 1330 535 / 535 1505 / 1505 865 / 865 Balance 2056 / 2056 3347 / 3347 4004 / 4004 -385 / -385 Weight (kg) 51 kg 54 kg 56 kg 59 kg Objective General Appearance: positive No acute distress and Other (Frail and cachectic in appearance with some temporal lobe wasting noted.); negative Anxious Eyes Bilateral: positive Normal inspection, PERRL and EOMI ENT: positive ENT inspection nml, Pharynx nml and No signs of dehydration Neck: positive Nml inspection, Thyroid nml and No JVD Respiratory: positive Chest non-tender, No respiratory distress and Rales (Bibasilar crackles noted.); negative Wheezes or Rhonchi Cardiovascular: positive No murmur, No gallop and Irregularly irregular; negative Tachycardia or Systolic murmur Abdomen: positive Other (Midline incision. 2 DEMETRIA drains noted with serosanguineous drainage. G-tube, J-tube in place. No erythema, swelling, induration or fluctuance around site. ) Back: positive Nml inspection; negative CVA tenderness (R) or CVA tenderness (L) Skin: positive Color nml, No rash, Warm and Dry Extremities: positive Non-tender, Nml appearance and Pedal edema (Diffuse pitting edema, 3+. Left upper extremity more swollen than right upper extremity. Abdomen with some fluid noted.); negative Full ROM (Mild weakness of LLE and LUE to flexion and extension. No sensory deficits noted. ) Neurologic/Psychiatric: positive Mood/affect nml, Disoriented to place, Weakness, Slurred/abnml speech and Other (Slight facial droop, slight verbal apraxia, left side weakness from previous stroke, and slight contraction at elbow, wrist, hip and knee.) Lab Results 05/09/25 04:30 05/09/25 16:00 Other Labs: Lab Results x24hrs 05/09/25 05/09/25 05/08/25 Range/Units 06:00 04:30 19:58 WBC 14.6 H 14.5 H (4.8-10.8) x10^3/uL RBC 3.11 L 3.09 L (4.20-5.40) 10^6/uL Hgb 7.9 L 8.3 L (12.0-16.0) g/dL Hct 26.0 L 25.5 L (37.0-47.0) % MCV 83.6 82.5 (81.0-99.0) fL MCH 25.4 L 26.9 L (27.0-31.0) pg MCHC 30.4 L 32.5 (32.0-36.0) g/dL RDW 19.7 H 19.2 H (12.0-15.0) % Plt Count 258 274 (130-450) 10^3/uL MPV 9.1 9.8 (7.9-10.8) fL Neut # (Auto) 13.2 H 13.1 H (1.5-6.6) 10^3/uL Lymph # (Auto) 0.8 L 0.6 L (1.5-3.5) 10^3/uL [place] # (Auto) 0.5 0.6 (0.0-1.0) 10^3/uL Eos # (Auto) 0.1 0.0 (0.0-0.7) 10^3/uL Baso # (Auto) 0.0 0.0 (0.0-0.1) 10^3/uL Absolute Nucleated RBC 0.02 0.04 x10^3/uL Nucleated RBC % 0.1 0.3 /100WBC PT (9.9-12.6) secs INR (0.8-1.2) D-Dimer (200.0-255.0) ng/mL Bld Gas Analysis Time 0613 Sample Site A-LINE ABG pH 7.46 H (7.35-7.45) ABG pCO2 26 L (34-45) mmHg ABG pO2 122 H (83-108) mmHg ABG HCO3 18.2 L (22.0-26.0) mmol/L ABG Total CO2 19.0 L (21.0-29.0) mmol/L ABG O2 Saturation 100 H (95-98) % ABG Base Excess -5.9 L (-2.0-3.0) mmol/L Marlon Test NOT APPLICABLE VBG pH 7.448 H (7.31-7.41) Ionized Calcium 1.09 (1.09-1.30) mmol/L O2 Delivery Device VENTILATOR Vent Mode ASSIST/CONTROL FiO2 30.00 Tidal Volume 350 mL Sodium 126 L (135-145) mmol/L Potassium 3.7 (3.5-4.5) mmol/L Chloride 102 (101-111) mmol/L Carbon Dioxide 20 L (21-32) mmol/L Anion Gap 4.0 L (6-13) BUN 47 H (6-20) mg/dL Creatinine 1.0 (0.6-1.3) mg/dL Estimated GFR (MDRD) 55 L (>89) Glucose 147 H (74-104) mg/dL Calcium 6.7 L (8.5-10.3) mg/dL Phosphorus 3.4 (2.5-5.0) mg/dL Magnesium 1.8 (1.7-2.3) mg/dL Total Bilirubin 0.7 (0.2-1.0) mg/dL AST 19 (10-42) IU/L ALT 15 (10-60) IU/L Alkaline Phosphatase 301 H (42-121) IU/L Lactate Dehydrogenase (140-271) IU/L Total Protein 4.0 L (6.4-8.9) g/dL Albumin 1.9 L (3.2-5.5) g/dL Globulin 2.1 (2.1-4.2) g/dL Albumin/Globulin Ratio 0.9 L (1.0-2.2) Prealbumin 9 L (17-34) mg/dL Blood Type Antibody Screen Crossmatch IS Only 05/08/25 05/06/25 Range/Units 14:50 16:39 WBC 14.4 H (4.8-10.8) x10^3/uL RBC 2.52 L (4.20-5.40) 10^6/uL Hgb 6.6 L* (12.0-16.0) g/dL Hct 21.2 L (37.0-47.0) % MCV 84.1 (81.0-99.0) fL MCH 26.2 L (27.0-31.0) pg MCHC 31.1 L (32.0-36.0) g/dL RDW 21.4 H (12.0-15.0) % Plt Count 283 (130-450) 10^3/uL MPV 9.7 (7.9-10.8) fL Neut # (Auto) 13.1 H (1.5-6.6) 10^3/uL Lymph # (Auto) 0.6 L (1.5-3.5) 10^3/uL [place] # (Auto) 0.6 (0.0-1.0) 10^3/uL Eos # (Auto) 0.0 (0.0-0.7) 10^3/uL Baso # (Auto) 0.0 (0.0-0.1) 10^3/uL Absolute Nucleated RBC 0.04 x10^3/uL Nucleated RBC % 0.3 /100WBC PT 13.0 H (9.9-12.6) secs INR 1.2 (0.8-1.2) D-Dimer > 1050.0 H (200.0-255.0) ng/mL Bld Gas Analysis Time Sample Site ABG pH (7.35-7.45) ABG pCO2 (34-45) mmHg ABG pO2 (83-108) mmHg ABG HCO3 (22.0-26.0) mmol/L ABG Total CO2 (21.0-29.0) mmol/L ABG O2 Saturation (95-98) % ABG Base Excess (-2.0-3.0) mmol/L Marlon Test VBG pH (7.31-7.41) Ionized Calcium (1.09-1.30) mmol/L O2 Delivery Device Vent Mode FiO2 Tidal Volume mL Sodium 127 L (135-145) mmol/L Potassium 4.4 (3.5-4.5) mmol/L Chloride 101 (101-111) mmol/L Carbon Dioxide 22 (21-32) mmol/L Anion Gap 4.0 L (6-13) BUN 45 H (6-20) mg/dL Creatinine 1.2 (0.6-1.3) mg/dL Estimated GFR (MDRD) 45 L (>89) Glucose 168 H (74-104) mg/dL Calcium 6.9 L (8.5-10.3) mg/dL Phosphorus (2.5-5.0) mg/dL Magnesium (1.7-2.3) mg/dL Total Bilirubin (0.2-1.0) mg/dL AST (10-42) IU/L ALT (10-60) IU/L Alkaline Phosphatase (42-121) IU/L Lactate Dehydrogenase 228 (140-271) IU/L Total Protein (6.4-8.9) g/dL Albumin (3.2-5.5) g/dL Globulin (2.1-4.2) g/dL Albumin/Globulin Ratio (1.0-2.2) Prealbumin (17-34) mg/dL Blood Type O POSITIVE Antibody Screen NEGATIVE Crossmatch IS Only See Detail Sepsis Event Note (H) Evaluation Current Stage of Sepsis: Septic shock Possible source of Sepsis: positive GI tract/intra-abdominal Sepsis Criteria Sepsis Criteria: Recorded Heart Rate greater than 90 bpm, WBC count greater than 12,000 or less than 4000, MAP less than 65 mmHg, SBP less than 90 mmHg and Renal: urine output less than 0.5ml/kg/hr for 2 hours or creatinine gr Assessment/Plan Problem List (1) Septic shock: Impression: Patient was switched to meropenem on 05/07 after clinical deterioration. Diflucan was continued. Leukocytosis has been stable around 14. Patient has been afebrile. Decreasing vasopressor requirementshave gone from vasopressin and Levophed, to just Levophed at a low dose today. Continue to wean as tolerated. No history of ESBL. Will likely switch back to Zosyn on 05/10. Continue Diflucan. (2) Perforated chronic gastric ulcer: Impression: Patient initially had a exploratory laparotomy with oversew/Talha patch perforated pyloric ulcer, gastric occlusion, G-tube, J-tube placement on 04/26. She then had a recurrence of pyloric perforation and was taken for repeat ex lap with oversew shows Talha patch of the ulcer repair site leak, as well as an abdominal cavity washout on 05/06. General Surgery following. Continue TPN for now. Hold off on tube feedings at this time to allow for wound healing. (3) Status post exploratory laparotomy: Impression: See above. (4) Complete gastric outlet obstruction: Impression: See above. (5) Jejunostomy tube present: Impression: See above. (6) Gastrostomy tube present: Impression: Holding off on tube feeds through either J-tube or G-tube until surgical site has time to heal, tentatively around 05/11. (7) Shock: Impression: Hypovolemic and distributive shock. She is on antibiotics as above. Her hemoglobin is holding stable. No obvious signs of bleeding, having some serosanguineous drainage into her DEMETRIA drains. Continue to wean down pressors; now only on Levophed. Titrate to urine output of around 25 cc/h. (8) Metabolic acidosis: Impression: Resolved. Patient had a profound metabolic acidosis, likely as a result of her septic state, worsening lactic acid, etc. ABG prior to intubation went 7.2-7.1. She was intubated overnight from 05/07 to 05/08. Extubated on 05/09. (9) Anemia: Impression: Patient has a chronic history of anemia. Significant oozing and blood loss during central line placement. Received 1 unit of blood 05/07 overnight, 1 unit of blood 05/08. Plan to resume subq heparin with normalization of hemoglobin. Qualifiers: Anemia type: unspecified type Qualified Code(s): D64.9 - Anemia, unspecified (10) HFrEF (heart failure with reduced ejection fraction): Impression: Patient diffusely volume overloaded. Echo was performed at that time which revealed an EF of 45 to 50% she also has tricuspid, mitral regurgitation with moderate pulmonary hypertension. Continue Lasix 40 mg, increased now to twice daily, monitor renal function. Pressors to maintain urine output of at least 25 cc/h. (11) Protein calorie malnutrition: Impression: Patient with evidence of protein calorie malnutrition. She came in with subcutaneous fat loss as well as muscle wasting. She has had low caloric intake throughout her 2-week hospitalization. Many times not exceeding 50% of her recommended caloric intake. Continue TPN, 70 mL/h. Her nutrition calorie goal 1440 per nutrition. Qualifiers: Protein-calorie malnutrition severity: severe Qualified Code(s): E43 - Unspecified severe protein-calorie malnutrition (12) Acute metabolic encephalopathy: Impression: Resolved. Code stroke was called but no intracranial hemorrhage or new focal deficits noted. She has a history of prior CVA as below. There is extensive encephalomalacia. Per teleneurology recommendations, EEG can be considered if she remained persistently encephalopathic, however she is clearing. No focal neurologic deficits. Continue Keppra 500 mg twice daily, has been converted to IV while NPO. (13) Cerebrovascular accident (CVA): Impression: With persistent and baseline left-sided deficits and left upper extremity contracture. On Keppra as above. Not on ASA or statin historically. Consider starting on DOAC and statin for secondary prevention if she clinically stabilizes Qualifiers: CVA mechanism: thrombosis Laterality of affected vessel: right P recerebral and cerebral artery: middle cerebral artery Qualified Code(s): I 63.311 - Cerebral infarction due to thrombosis of right middle cerebral artery (14) Afib: Impression: Rate controlled currently. On telemetry, she has had some runs of RVR. Normally on Eliquis and metoprolol Succinate 25 mg. Metoprolol succinate cannot be given through her J-tube. She has a pacemaker with pacer leads apparent on telemetry and previous EKGs. Working appropriately. Resume DVT prophylaxis. Continues on Lopressor 2.5 3 times daily for rate control, minimal hemodynamic effect but was having significant ectopy when it was held. Qualifiers: Atrial fibrillation type: unspecified Qualified Code(s): I48.91 - Unspecified atrial fibrillation (15) Diabetes mellitus: Impression: Seemingly diet controlled. Last A1c of 5.1%. Qualifiers: Diabetes mellitus complication status: without complication Diabetes mellitus assisted insulin use: without assisted use Diabetes mellitus type: t ype 2 Qualified Code(s): E11.9 - Type 2 diabetes mellitus without complications
[2025-05-09 11:44] LABS: ABG OXYGEN SATURATION 99 % (95-98); ABG PCO2 22 mmHg (34-45); ABG PH 7.48 (7.35-7.45); ABG PO2 106 mmHg (83-108); ABG TCO2 17.0 mmol/L (21.0-29.0)
[2025-05-09 11:45] LABS: ABG BASE EXCESS -7.4 mmol/L (-2.0-3.0); ABG HCO3 16.3 mmol/L (22.0-26.0); ABG MODE OF VENTILATION SPONT
[2025-05-09 11:46] LABS: ABG FRACTION OF INSPIRED O2 0.25
[2025-05-09 11:58] LABS: VBG PH 7.471 (7.31-7.41)
[2025-05-10 04:25] LABS: HCT - HEMATOCRIT 26.2 % (37.0-47.0); HGB - HEMOGLOBIN 8.4 g/dL (12.0-16.0); MEAN PLATELET VOLUME 9.1 fL (7.9-10.8); NRBC ABSOLUTE COUNT (AUTO) 0.00 x10^3/uL; NUCLEATED RED BLOOD CELLS AUTO 0.0 /100WBC; PLT - PLATELET COUNT 266 10^3/uL (130-450); RED CELL DISTRIBUTION WIDTH 19.9 % (12.0-15.0)
[2025-05-10 04:27] LABS: VBG PH 7.418 (7.31-7.41)
[2025-05-10 04:39] LABS: BUN - BLOOD UREA NITROGEN 45.0 mg/dL (6-20); CARBON DIOXIDE - CO2 24.0 mmol/L (21-32); CREATININE 0.8 mg/dL (0.6-1.3); GFR - MDRD 72.0 (>89)
[2025-05-10] MEDS: MAGNESIUM SULFATE 2 GRAM 2 GM/50 ML BAG IV ONE (05:39)
[2025-05-10] MEDS: POTASSIUM CHLOR 20 MEQ/100 ML 20 MEQ/100 ML BAG IV ONE ×2 (06:33→12:59)
--- NOTE | 2025-05-10 07:14 | PROVIDER PROGRESS NOTE ---
Progress Note Progress Note Progress Note: General Surgery Progress Note S: Patient is awake, comfortable and converses easily with this examiner. She seems to be in no acute distress O: VSS, afeb; Off vasopressors; Lungs clear without wheezing; Heart NSR; Abdomen is soft, midline wound clean, DEMETRIA 1&2 with scant blood tinged fluid. Venting jejunostomy with bilious succus; Gastrostomy tube with scant drainage. Labs: Na 131; K 3.7 Assessment: 1) Infection - WBC 13.6; (Peritoneal cultures - NG after 3 days); On Zosyn/Diflucan 2) Anemia - H&H 8.4/26.2 and stable (she received 1 unit of PRBC before her 05/06/2025 surgery and 2 units after the procedure on 05/08/2025) 3) Renal function - UOP good - BUN 45; Cr 0.8 4) Nutrition - TPN ongoing 5) VTEP - Heparin Q 12h 6) Hyponatremia, hyperkalemia - resolved Plan: 1) Continue antibiotics/antifungal for 5-7 days total 2) Monitor H&H and transfuse as needed 3) Continue diuresis 4) Continue VTEP 5) Continue TPN - I will discuss with Dr. Odell regarding ob tech plans for nutritional support, ie when to switch from TPN to Jejunostomy Magdiel Lehman MD, FACS General Surgery Service
[2025-05-10] MEDS: HYDROmorphone 1 MG/ML CARPUJECT IVP PRN ×2 (08:34→18:52)
[2025-05-10] MEDS: FUROSEMIDE 40 MG/4 ML VIAL IVP SCH (08:36)
--- NOTE | 2025-05-10 10:29 | PROVIDER PROGRESS NOTE ---
Subjective Subjective Subjective: This morning, patient was seen when she was intubated and sedated. Sedation was weaned off, and patient was appropriately following commands, and RSBI was less than 105 (76). We successfully extubated the patient, and she is tolerating it well. Sons were spoken to at bedside, and updated about plan of care. Diet: TPN Dispo: Likely SNF on discharge, pending clinical course DVT: Heparin subq - to be resumed tonight Code: DNR Current Medications Current Medications Current Medications: Current Medications Generic Name Dose Route Start Last Admin Trade Name Freq PRN Reason Stop Dose Admin Furosemide 40 mg 05/10/25 09:00 05/10/25 08:36 Furosemide 40 Mg/4 Ml Vial IVP 40 mg DAILY CINDY Administration Heparin Sodium (Porcine) 5,000 unit 05/04/25 09:00 05/10/25 09:17 Heparin 5,000 Unit/Ml Vial SUBQ 5,000 unit BID CINDY Administration Hydromorphone HCl 1 mg 05/10/25 08:27 05/10/25 08:34 Hydromorphone 1 Mg/Ml Carpuject IVP 0.5 mg Q2H PRN Administration Severe Pain (Level 7-10) Fluconazole 100 mls @ 100 mls/hr 04/26/25 18:00 05/09/25 19:10 Diflucan 200 Mg/100 Ml IV Infused Q24H CINDY Infusion Norepinephrine/Sodium Chloride 8 mg in 250 mls @ 15 mls/hr 05/06/25 09:00 05/10/25 04:30 Levophed 8 Mg/250-0.9% Nacl IV 0 mcg/min .[id number] CINDY 0 mls/hr Protocol Titration 8 MCG/MIN Levetiracetam 500 mg/ Sodium 105 mls @ 400 mls/hr 05/06/25 21:00 05/10/25 08:36 Chloride IV 400 mls/hr BID CINDY Administration Multivitamins 10 ml/ Zinc/ 2,011 mls @ 70 mls/hr 05/07/25 19:00 05/09/25 18:17 Copper/Manganese/Selenium 1 ml IV 70 mls/hr / Amino Acids/Dextrose 1900 CINDY Administration Protocol Meropenem 1 gm/ Sodium 100 mls @ 200 mls/hr 05/07/25 23:00 05/10/25 07:20 Chloride IV Infused Q8H CINDY Infusion Lorazepam 0.5 mg 05/07/25 22:06 05/07/25 22:23 Lorazepam 2 Mg/Ml Vial IVP 0.5 mg Q2H PRN Administration tachypnea Metoprolol Tartrate 2.5 mg 05/06/25 22:00 05/10/25 05:39 Metoprolol 5 Mg/5 Ml Vial IVP 2.5 mg TID CINDY Administration Ondansetron HCl 4 mg 04/26/25 17:08 Ondansetron Odt 4 Mg Tablet TL Q6HR PRN Nausea / Vomiting Ondansetron HCl 4 mg 04/26/25 17:08 Ondansetron 4 Mg/2 Ml Vial IVP Q6HR PRN Nausea / Vomiting Pantoprazole Sodium 40 mg 04/26/25 21:00 05/10/25 08:35 Pantoprazole 40 Mg Vial IVP 40 mg BID CINDY Administration Polyethylene Glycol 17 gm 04/29/25 10:32 04/29/25 17:05 Polyethylene Glycol 3350 17 Gm Packet JT 17 gm DAILY PRN Administration Bowel Protocol Simethicone 80 mg 05/04/25 08:12 05/06/25 07:54 Simethicone 40 Mg/0.6 Ml 30 Ml Bottle JT 80 mg Q6HR PRN Administration Gas Sodium Chloride 10 ml 04/26/25 17:08 05/10/25 08:40 Sodium Chloride Flush 0.9% 10 Ml Syringe IVP 10 ml 0100,0900,1700 CINDY Administration Sodium Chloride 10 ml 04/26/25 17:08 05/08/25 21:16 Sodium Chloride Flush 0.9% 10 Ml Syringe IVP 10 ml PRN PRN Administration NEEDED PER PROVIDER ORDERS Zinc Oxide 113 gm 04/27/25 04:26 05/09/25 08:30 Cod Liver Oil/Zinc Oxide 113 Gm Tube TOP 1 applic PRN PRN Administration Skin Care Objective Vital Signs/Intake & Output Reviewed Vital Signs: Yes Vital Signs: Vital Signs x48h Temp Pulse Pulse Resp BP BP BP 05/10/25 10:00 60 14 113/43 L 05/10/25 09:00 68 13 123/53 L 05/10/25 08:45 75 110/64 135/54 H 05/10/25 08:00 97.0 F L 75 12 120/55 L 05/10/25 07:00 97.3 F L 61 12 115/51 L 05/10/25 06:00 60 12 115/50 L 05/10/25 05:39 73 115/51 L 05/10/25 05:00 97.5 F L 62 12 118/50 L 05/10/25 04:50 138/50 H 05/10/25 04:00 97.7 F 60 14 114/50 L 05/10/25 03:00 97.9 F 60 13 111/47 L Pulse Ox 05/10/25 10:00 98 05/10/25 09:00 97 05/10/25 08:45 05/10/25 08:00 98 05/10/25 07:00 97 05/10/25 06:00 97 05/10/25 05:39 05/10/25 05:00 97 05/10/25 04:50 05/10/25 04:00 97 05/10/25 03:00 97 Intake & Output: Intake & Output 05/07/25 05/08/25 05/09/25 05/10/25 23:59 23:59 23:59 23:59 Intake Total 3882 / 3882 5509 / 5509 3090 / 3090 374 / 374 Output Total 535 / 535 1505 / 1505 5595 / 5595 2661 / 2661 Balance 3347 / 3347 4004 / 4004 -2505 / -2505 -2287 / -2287 Weight (kg) 54 kg 56 kg 59 kg 55.5 kg Objective General Appearance: positive No acute distress and Other (Frail and cachectic in appearance with some temporal lobe wasting noted.); negative Anxious Eyes Bilateral: positive Normal inspection, PERRL and EOMI ENT: positive ENT inspection nml, Pharynx nml and No signs of dehydration Neck: positive Nml inspection, Thyroid nml and No JVD Respiratory: positive Chest non-tender, No respiratory distress and Rales (Bibasilar crackles noted.); negative Wheezes or Rhonchi Cardiovascular: positive No murmur, No gallop and Irregularly irregular; negative Tachycardia or Systolic murmur Abdomen: positive Other (Midline incision. 2 DEMETRIA drains noted with serosanguineous drainage. G-tube, J-tube in place. No erythema, swelling, induration or fluctuance around site. ) Back: positive Nml inspection; negative CVA tenderness (R) or CVA tenderness (L) Skin: positive Color nml, No rash, Warm and Dry Extremities: positive Non-tender, Nml appearance and Pedal edema (Diffuse pitting edema, 3+. Left upper extremity more swollen than right upper extremity. Abdomen with some fluid noted.); negative Full ROM (Mild weakness of LLE and LUE to flexion and extension. No sensory deficits noted. ) Neurologic/Psychiatric: positive Mood/affect nml, Disoriented to place, Weakness, Slurred/abnml speech and Other (Slight facial droop, slight verbal apraxia, left side weakness from previous stroke, and slight contraction at elbow, wrist, hip and knee.) Lab Results 05/10/25 04:16 05/10/25 11:00 Other Labs: Lab Results x24hrs 05/10/25 05/09/25 05/09/25 Range/Units 04:16 21:30 16:00 WBC 13.6 H (4.8-10.8) x10^3/uL RBC 3.15 L (4.20-5.40) 10^6/uL Hgb 8.4 L (12.0-16.0) g/dL Hct 26.2 L (37.0-47.0) % MCV 83.2 (81.0-99.0) fL MCH 26.7 L (27.0-31.0) pg MCHC 32.1 (32.0-36.0) g/dL RDW 19.9 H (12.0-15.0) % Plt Count 266 (130-450) 10^3/uL MPV 9.1 (7.9-10.8) fL Neut # (Auto) 12.2 H (1.5-6.6) 10^3/uL Lymph # (Auto) 0.5 L (1.5-3.5) 10^3/uL Slope # (Auto) 0.6 (0.0-1.0) 10^3/uL Eos # (Auto) 0.1 (0.0-0.7) 10^3/uL Baso # (Auto) 0.0 (0.0-0.1) 10^3/uL Absolute Nucleated RBC 0.00 x10^3/uL Nucleated RBC % 0.0 /100WBC Bld Gas Analysis Time Sample Site ABG pH (7.35-7.45) ABG pCO2 (34-45) mmHg ABG pO2 (83-108) mmHg ABG HCO3 (22.0-26.0) mmol/L ABG Total CO2 (21.0-29.0) mmol/L ABG O2 Saturation (95-98) % ABG Base Excess (-2.0-3.0) mmol/L Marlon Test VBG pH 7.418 H (7.31-7.41) Ionized Calcium 1.12 (1.09-1.30) mmol/L O2 Delivery Device Vent Mode FiO2 PEEP cmH2O Pressure Support Vent cmH2O Sodium 131 L (135-145) mmol/L Potassium 3.7 4.0 3.9 (3.5-4.5) mmol/L Chloride 104 (101-111) mmol/L Carbon Dioxide 24 (21-32) mmol/L Anion Gap 3.0 L (6-13) BUN 45 H (6-20) mg/dL Creatinine 0.8 (0.6-1.3) mg/dL Estimated GFR (MDRD) 72 L (>89) Glucose 118 H (74-104) mg/dL Calcium 7.1 L (8.5-10.3) mg/dL Magnesium 1.9 (1.7-2.3) mg/dL Blood Type Antibody Screen Crossmatch IS Only 05/09/25 05/09/25 05/06/25 Range/Units 11:37 11:30 16:39 WBC (4.8-10.8) x10^3/uL RBC (4.20-5.40) 10^6/uL Hgb (12.0-16.0) g/dL Hct (37.0-47.0) % MCV (81.0-99.0) fL MCH (27.0-31.0) pg MCHC (32.0-36.0) g/dL RDW (12.0-15.0) % Plt Count (130-450) 10^3/uL MPV (7.9-10.8) fL Neut # (Auto) (1.5-6.6) 10^3/uL Lymph # (Auto) (1.5-3.5) 10^3/uL Slope # (Auto) (0.0-1.0) 10^3/uL Eos # (Auto) (0.0-0.7) 10^3/uL Baso # (Auto) (0.0-0.1) 10^3/uL Absolute Nucleated RBC x10^3/uL Nucleated RBC % /100WBC Bld Gas Analysis Time 1130 Sample Site A-LINE ABG pH 7.48 H (7.35-7.45) ABG pCO2 22 L (34-45) mmHg ABG pO2 106 (83-108) mmHg ABG HCO3 16.3 L (22.0-26.0) mmol/L ABG Total CO2 17.0 L (21.0-29.0) mmol/L ABG O2 Saturation 99 H (95-98) % ABG Base Excess -7.4 L (-2.0-3.0) mmol/L Marlon Test POSITIVE VBG pH 7.471 H (7.31-7.41) Ionized Calcium 1.11 (1.09-1.30) mmol/L O2 Delivery Device VENTILATOR Vent Mode SPONT FiO2 0.25 PEEP 5 cmH2O Pressure Support Vent 10 cmH2O Sodium (135-145) mmol/L Potassium 3.8 (3.5-4.5) mmol/L Chloride (101-111) mmol/L Carbon Dioxide (21-32) mmol/L Anion Gap (6-13) BUN (6-20) mg/dL Creatinine (0.6-1.3) mg/dL Estimated GFR (MDRD) (>89) Glucose (74-104) mg/dL Calcium (8.5-10.3) mg/dL Magnesium 2.3 (1.7-2.3) mg/dL Blood Type O POSITIVE Antibody Screen NEGATIVE Crossmatch IS Only See Detail Sepsis Event Note (H) Evaluation Current Stage of Sepsis: Septic shock Possible source of Sepsis: positive GI tract/intra-abdominal Sepsis Criteria Sepsis Criteria: Recorded Heart Rate greater than 90 bpm, WBC count greater than 12,000 or less than 4000, MAP less than 65 mmHg, SBP less than 90 mmHg and Renal: urine output less than 0.5ml/kg/hr for 2 hours or creatinine gr Assessment/Plan Problem List (1) Septic shock: Impression: Resolved. Patient was switched to meropenem on 05/07 after clinical deterioration. No history of ESBL. Will switch back to Zosyn today - will complete 7 day course from last perforation on 05/06, if continued clinical improvement. Last day of Zosyn will be 05/13. Diflucan to be continued until 05/13 as well. Leukocytosis improved. Patient has been afebrile. Off vasopressors as of this morning. Will d/c arterial line and central line once off vasopressors for 24 hours. (2) Perforated chronic gastric ulcer: Impression: Patient initially had a exploratory laparotomy with oversew/Talha patch perforated pyloric ulcer, gastric occlusion, G-tube, J-tube placement on 04/26. She then had a recurrence of pyloric perforation and was taken for repeat ex lap with oversew shows Talha patch of the ulcer repair site leak, as well as an abdominal cavity washout on 05/06. General Surgery following. Continue TPN for now. Hold off on tube feedings at this time to allow for wound healing. (3) Status post exploratory laparotomy: Impression: See above. (4) Complete gastric outlet obstruction: Impression: See above. (5) Jejunostomy tube present: Impression: See above. (6) Gastrostomy tube present: Impression: Holding off on tube feeds through either J-tube or G-tube until surgical site has time to heal. (7) Metabolic acidosis: Impression: Resolved. Patient had a profound metabolic acidosis, likely as a result of her septic state, worsening lactic acid, etc. ABG prior to intubation went 7.2-7.1. She was intubated overnight from 05/07 to 05/08. Extubated on 05/09. (8) Anemia: Impression: Stable. Patient has a chronic history of anemia. Significant oozing and blood loss during central line placement. Received 1 unit of blood 05/07 overnight, 1 unit of blood 05/08. Plan to resume subq heparin with normalization of hemoglobin. Qualifiers: Anemia type: unspecified type Qualified Code(s): D64.9 - Anemia, unspecified (9) HFrEF (heart failure with reduced ejection fraction): Impression: Patient diffusely volume overloaded. Echo was performed at that time which revealed an EF of 45 to 50% she also has tricuspid, mitral regurgitation with moderate pulmonary hypertension. Continue Lasix 40 mg daily, monitor renal function. 7L of urine output over the last 24 hours. Pressors to maintain urine output of at least 25 cc/h. (10) Protein calorie malnutrition: Impression: Patient with evidence of protein calorie malnutrition. She came in with subcutaneous fat loss as well as muscle wasting. She has had low caloric intake throughout her 2-week hospitalization. Many times not exceeding 50% of her recommended caloric intake. Continue TPN, 70 mL/h. Lipids added today. Her nutrition calorie goal 1440 per nutrition. Qualifiers: Protein-calorie malnutrition severity: severe Qualified Code(s): E43 - Unspecified severe protein-calorie malnutrition (11) Acute metabolic encephalopathy: Impression: Resolved. Code stroke was called but no intracranial hemorrhage or new focal deficits noted. She has a history of prior CVA as below. There is extensive encephalomalacia. Per teleneurology recommendations, EEG can be considered if she remained persistently encephalopathic, however she is clearing. No focal neurologic deficits. Continue Keppra 500 mg twice daily, has been converted to IV while NPO. (12) Cerebrovascular accident (CVA): Impression: With persistent and baseline left-sided deficits and left upper extremity contracture. On Keppra as above. Not on ASA or statin historically. Consider starting on DOAC and statin for secondary prevention if she clinically stabilizes Qualifiers: CVA mechanism: thrombosis Laterality of affected vessel: right P recerebral and cerebral artery: middle cerebral artery Qualified Code(s): I 63.311 - Cerebral infarction due to thrombosis of right middle cerebral artery (13) Afib: Impression: Rate controlled currently. On telemetry, she has had some runs of RVR. Normally on Eliquis and metoprolol Succinate 25 mg. Metoprolol succinate cannot be given through her J-tube. She has a pacemaker with pacer leads apparent on telemetry and previous EKGs. Working appropriately. Resume DVT prophylaxis. Continues on Lopressor 2.5 3 times daily for rate control, minimal hemodynamic effect but was having significant ectopy when it was held. Qualifiers: Atrial fibrillation type: unspecified Qualified Code(s): I48.91 - Unspecified atrial fibrillation (14) Diabetes mellitus: Impression: Seemingly diet controlled. Last A1c of 5.1%. Qualifiers: Diabetes mellitus complication status: without complication Diabetes mellitus extermination supervisor insulin use: without extermination supervisor use Diabetes mellitus type: t ype 2 Qualified Code(s): E11.9 - Type 2 diabetes mellitus without complications
[2025-05-10] MEDS: PIPERACILLIN/TAZOBACTAM 3.375 GM in SODIUM CHLORIDE 0.9% MINIBAG 100 ML IV SCH (13:05)
[2025-05-10] MEDS: ACETAMINOPHEN 1,000 MG/100 ML 1,000 MG/100 ML BAG IV SCH (13:46)
--- NOTE | 2025-05-10 16:23 | PT Plan of Care ---
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 Initially referred s/p ex lap with Gtube & Jtube performed on 04/26/25. Now POD4 s/p 2nd ex-lap with washout. Cleared for eval by hospitalist. Pt has h/o CVA in 2018 with L sided deficits. Walks with cane/ hemiwalker at baseline to bathroom but primarily wc user. Lives with son and family assists with ADLs as able. Please see chart for further PMH. Upon PT re-eval, met supine in bed, nsg and family in intermittently. Pt presenting with active motion of R wrist and elbow, R ankle. No active R shoulder or R hip/knee motion, all of which were previously intact. Continues with LUE flexor tone with finger contracture, L ankle DF flaccid and minimal L knee/hip active motion all related to 2018 CVA. Minimal tolerance to PROM of LUE/LLE with increased pain in LUE during midrange motion. Unable to tolerate BLE PROM aside from ankle PF/DF. Pt reports fatigue and increased pain with <10 min of activity. Given severity of impairments, rehab potential is limited. Plan to reassess activity tolerance during next session. When medically clear, PT rec dc to SNF vs LTC pending ability to participate. Goals Improve bed mobility to: Moderate Assist Improve supine to sit to: Moderate Assist Improve sit to stand to: Maximum Assist Improve pivot transfer ability Maximum Assist to: Improve sit to supine to: Maximum Assist Improve gait ability to: Max A Assistive Device Used: Neon Sign Worker Walker Other gait goal: hemiwalker use in R hand Improve Sitting Balance to: Fair Improve Standing Balance to: Poor PT Plan of Care Frequency 1-2x/day Duration Until discharge Discharge Recommendations Discharge Location SNF vs LTC Other hemiwalker, wc, pt reports having both at home Transport Needs at Discharge BeeS
[2025-05-10] MEDS: FAT EMULSION 20% 250 ML IV SCH (18:45)
[2025-05-11 04:16] LABS: VBG PH 7.470 (7.31-7.41)
[2025-05-11 04:17] LABS: HCT - HEMATOCRIT 25.0 % (37.0-47.0); HGB - HEMOGLOBIN 8.0 g/dL (12.0-16.0); MEAN PLATELET VOLUME 9.7 fL (7.9-10.8); NRBC ABSOLUTE COUNT (AUTO) 0.00 x10^3/uL; NUCLEATED RED BLOOD CELLS AUTO 0.0 /100WBC; PLT - PLATELET COUNT 304 10^3/uL (130-450); RED CELL DISTRIBUTION WIDTH 19.9 % (12.0-15.0)
[2025-05-11 04:32] LABS: ALT ALANINE AMINOTRANSFERASE 12.0 IU/L (10-60); AST ASPARTATE AMINOTRANSFERASE 14.0 IU/L (10-42); BUN - BLOOD UREA NITROGEN 41.0 mg/dL (6-20); CARBON DIOXIDE - CO2 24.0 mmol/L (21-32); CREATININE 0.5 mg/dL (0.6-1.3); GFR - MDRD 123.0 (>89); PHOSPHORUS 1.3 mg/dL (2.5-5.0)
--- NOTE | 2025-05-11 07:43 | PROVIDER PROGRESS NOTE ---
Progress Note Progress Note Progress Note: General Surgery Progress Note Hospital Day # 16 - Perforated pyloric ulcer with recurrent leak on hospital day # 11 POD # 15, Exploratory laparotomy, oversew/Talha patch perforated pyloric ulcer, gastric exclusion (stapled), gastrostomy tube placement, jejunostomy tube placement POD #5, Exploratory laparotomy, oversew/Talha patch of ulcer repair site leak, abdominal cavity washout S: Patient is awake, comfortable and converses easily with this examiner. She seems to be in no acute distress. She moans with every breath but when asked tells me that she is in no discomfort. O: VSS, afeb; Off vasopressors; Lungs clear without wheezing; Heart NSR; Abdomen is soft, midline wound clean, DEMETRIA 1&2 with minimal output. Venting jejunostomy with bilious succus; Gastrostomy tube with scant drainage. Labs: WBC 10.9; H&H 25/8.0; Plt 304K; Na 130; K 3.4; BUN 41; Cr 0.5; Glu 113; T.P 4.3; Alb 1.9; Prealbumin 10 Assessment: 1) Infection - With normalization of WBC and no growth on any of the recent peritoneal cultures, it seems reasonable to discontinue the Zosyn and Diflucan after today's last dose (5 days of antibiotics post-op) 2) Anemia - H&H stable; I would think that once her nutrition improves her anemia will also improve 3) Acute renal failure - resolved 4) Nutrition - TPN ongoing. I think it would be safe to start and transition her from TPN to jejunal feedings. The risk would be the development of an ileus which would stress and possibly rupture the duodenal repair but I think that with improvement of all of her other clinical parameters, this risk is low. 5) VTEP - Heparin Q 12h Plan: 1) Discontinue antibiotic and antifungal agents after today's last dose 2) Monitor H&H and transfuse as needed 3) Leave the drain near the duodenal repair (DEMETRIA #2 - sub-hepatic) in place to protect the duodenal repair as feedings are started. DEMETRIA # 1 (sub-diaphragmatic) may be removed 4) Begin jejunostomy feedings slowly. 5) Continue TPN until it is clear that the patient is tolerating the jejunal feedings. 6) Physical therapy 7) Begin Discharge planning Magdiel Lehman MD, [facility] General Surgery Service
[2025-05-11] MEDS: POTASSIUM PHOSPHATE 21 MMOL in SODIUM CHLORIDE 0.9% 250 ML IV ONE (08:44)
--- NOTE | 2025-05-11 11:04 | PROVIDER PROGRESS NOTE ---
Subjective Subjective Subjective: Patient is doing well today. Her abdominal pain is improved. Her swelling is improved as well. She worked with physical therapy yesterday, and is very deconditioned, with an already poor baseline. She denies any fevers or chills. She has no difficulty breathing. Diet: TPN; trickle feeds started Dispo: Likely SNF on discharge, pending clinical course DVT: Heparin subq Code: DNR Current Medications Current Medications Current Medications: Current Medications Generic Name Dose Route Start Last Admin Trade Name Freq PRN Reason Stop Dose Admin Furosemide 40 mg 05/10/25 09:00 05/11/25 08:44 Furosemide 40 Mg/4 Ml Vial IVP 40 mg DAILY CINDY Administration Heparin Sodium (Porcine) 5,000 unit 05/04/25 09:00 05/11/25 08:45 Heparin 5,000 Unit/Ml Vial SUBQ 5,000 unit BID CINDY Administration Hydromorphone HCl 1 mg 05/10/25 13:32 05/11/25 06:53 Hydromorphone 1 Mg/Ml Carpuject IVP 1 mg Q4HR PRN Administration Severe Pain (Level 7-10) Fluconazole 100 mls @ 100 mls/hr 04/26/25 18:00 05/10/25 19:02 Diflucan 200 Mg/100 Ml IV Infused Q24H CINDY Infusion Levetiracetam 500 mg/ Sodium 105 mls @ 400 mls/hr 05/06/25 21:00 05/11/25 09:00 Chloride IV Infused BID CINDY Infusion Multivitamins 10 ml/ Zinc/ 2,011 mls @ 70 mls/hr 05/07/25 19:00 05/10/25 18:42 Copper/Manganese/Selenium 1 ml IV 70 mls/hr / Amino Acids/Dextrose 1900 CINDY Administration Protocol Fat Emulsion Intravenous 250 mls @ 21 mls/hr 05/10/25 19:00 05/11/25 07:59 Intralipid 20% IV Infused 1900 CINDY Infusion Piperacillin Sod/Tazobactam 100 mls @ 25 mls/hr 05/10/25 13:00 05/11/25 10:00 Sod 3.375 gm/ Sodium Chloride IV Infused Q8H CINDY Infusion Acetaminophen 1,000 mg in 100 mls @ 400 mls/hr 05/10/25 14:00 05/11/25 07:59 Acetaminophen IV Infused Q8HR CINDY Infusion Potassium Phosphate 21 mmol/ 257 mls @ 64 mls/hr 05/11/25 07:30 05/11/25 08:44 Sodium Chloride IV 05/11/25 11:30 64 mls/hr ONCE ONE Administration Protocol Lorazepam 0.5 mg 05/07/25 22:06 05/07/25 22:23 Lorazepam 2 Mg/Ml Vial IVP 0.5 mg Q2H PRN Administration tachypnea Metoprolol Tartrate 2.5 mg 05/06/25 22:00 05/11/25 05:42 Metoprolol 5 Mg/5 Ml Vial IVP 2.5 mg TID CINDY Administration Ondansetron HCl 4 mg 04/26/25 17:08 Ondansetron Odt 4 Mg Tablet TL Q6HR PRN Nausea / Vomiting Ondansetron HCl 4 mg 04/26/25 17:08 Ondansetron 4 Mg/2 Ml Vial IVP Q6HR PRN Nausea / Vomiting Pantoprazole Sodium 40 mg 04/26/25 21:00 05/11/25 08:40 Pantoprazole 40 Mg Vial IVP 40 mg BID CINDY Administration Polyethylene Glycol 17 gm 04/29/25 10:32 04/29/25 17:05 Polyethylene Glycol 3350 17 Gm Packet JT 17 gm DAILY PRN Administration Bowel Protocol Sodium Chloride 10 ml 04/26/25 17:08 05/11/25 08:44 Sodium Chloride Flush 0.9% 10 Ml Syringe IVP 10 ml 0100,0900,1700 CINDY Administration Sodium Chloride 10 ml 04/26/25 17:08 05/08/25 21:16 Sodium Chloride Flush 0.9% 10 Ml Syringe IVP 10 ml PRN PRN Administration NEEDED PER PROVIDER ORDERS Zinc Oxide 113 gm 04/27/25 04:26 05/11/25 06:54 Cod Liver Oil/Zinc Oxide 113 Gm Tube TOP 1 applic PRN PRN Administration Skin Care Objective Vital Signs/Intake & Output Reviewed Vital Signs: Yes Vital Signs: Vital Signs x48h Temp Pulse Pulse Resp BP BP Pulse Ox 05/11/25 10:00 98.4 F 62 13 124/69 97 05/11/25 09:00 98.2 F 60 16 122/62 98 05/11/25 08:00 97.9 F 60 12 96/53 L 97 05/11/25 07:00 98.6 F 60 14 110/56 L 99 05/11/25 06:00 98.2 F 60 15 108/55 L 99 05/11/25 05:42 63 103/53 L 05/11/25 05:00 98.1 F 60 12 103/53 L 98 05/11/25 04:00 98.1 F 60 13 111/53 L 98 Intake & Output: Intake & Output 05/08/25 05/09/25 05/10/25 05/11/25 23:59 23:59 23:59 23:59 Intake Total 5509 / 5509 3090 / 3090 2793 / 2793 655 / 655 Output Total 1505 / 1505 5595 / 5595 5322 / 5322 1380 / 1380 Balance 4004 / 4004 -2505 / -2505 -2529 / -2529 -725 / -725 Weight (kg) 56 kg 59 kg 55.5 kg 51.5 kg Objective General Appearance: positive No acute distress and Other (Frail and cachectic in appearance with some temporal lobe wasting noted.); negative Anxious Eyes Bilateral: positive Normal inspection, PERRL and EOMI ENT: positive ENT inspection nml, Pharynx nml and No signs of dehydration Neck: positive Nml inspection, Thyroid nml and No JVD Respiratory: positive Chest non-tender, No respiratory distress and Rales (Bibasilar crackles noted.); negative Wheezes or Rhonchi Cardiovascular: positive No murmur, No gallop and Irregularly irregular; negative Tachycardia or Systolic murmur Abdomen: positive Other (Midline incision. 2 DEMETRIA drains noted with serosanguineous drainage. G-tube, J-tube in place. No erythema, swelling, induration or fluctuance around site. ) Back: positive Nml inspection; negative CVA tenderness (R) or CVA tenderness (L) Skin: positive Color nml, No rash, Warm and Dry Extremities: positive Non-tender, Nml appearance and Pedal edema (Diffuse pitting edema, now improved. Left upper extremity more swollen than right upper extremity. Abdomen with some fluid noted.); negative Full ROM (Mild weakness of LLE and LUE to flexion and extension. No sensory deficits noted. ) Neurologic/Psychiatric: positive Mood/affect nml, Weakness, Slurred/abnml speech and Other (Slight facial droop, slight verbal apraxia, left side weakness from previous stroke, and slight contraction at elbow, wrist, hip and knee.) Lab Results 05/11/25 04:10 05/11/25 04:10 Other Labs: Lab Results x24hrs 05/11/25 05/10/25 05/10/25 Range/Units 04:10 15:55 11:00 WBC 10.9 H (4.8-10.8) x10^3/uL RBC 2.96 L (4.20-5.40) 10^6/uL Hgb 8.0 L (12.0-16.0) g/dL Hct 25.0 L (37.0-47.0) % MCV 84.5 (81.0-99.0) fL MCH 27.0 (27.0-31.0) pg MCHC 32.0 (32.0-36.0) g/dL RDW 19.9 H (12.0-15.0) % Plt Count 304 (130-450) 10^3/uL MPV 9.7 (7.9-10.8) fL Neut # (Auto) 9.1 H (1.5-6.6) 10^3/uL Lymph # (Auto) 0.6 L (1.5-3.5) 10^3/uL [place] # (Auto) 0.8 (0.0-1.0) 10^3/uL Eos # (Auto) 0.2 (0.0-0.7) 10^3/uL Baso # (Auto) 0.0 (0.0-0.1) 10^3/uL Absolute Nucleated RBC 0.00 x10^3/uL Nucleated RBC % 0.0 /100WBC VBG pH 7.470 H (7.31-7.41) Ionized Calcium 1.13 (1.09-1.30) mmol/L Sodium 130 L (135-145) mmol/L Potassium 3.4 L 4.0 3.9 (3.5-4.5) mmol/L Chloride 103 (101-111) mmol/L Carbon Dioxide 24 (21-32) mmol/L Anion Gap 3.0 L (6-13) BUN 41 H (6-20) mg/dL Creatinine 0.5 L (0.6-1.3) mg/dL Estimated GFR (MDRD) 123 (>89) Glucose 113 H (74-104) mg/dL Calcium 7.2 L (8.5-10.3) mg/dL Phosphorus 1.3 L (2.5-5.0) mg/dL Magnesium 2.0 (1.7-2.3) mg/dL Total Bilirubin 1.3 H (0.2-1.0) mg/dL AST 14 (10-42) IU/L ALT 12 (10-60) IU/L Alkaline Phosphatase 251 H (42-121) IU/L Total Protein 4.3 L (6.4-8.9) g/dL Albumin 1.9 L (3.2-5.5) g/dL Globulin 2.4 (2.1-4.2) g/dL Albumin/Globulin Ratio 0.8 L (1.0-2.2) Prealbumin 10 L (17-34) mg/dL Sepsis Event Note (H) Evaluation Current Stage of Sepsis: Septic shock Possible source of Sepsis: positive GI tract/intra-abdominal Sepsis Criteria Sepsis Criteria: Recorded Heart Rate greater than 90 bpm, WBC count greater than 12,000 or less than 4000, MAP less than 65 mmHg, SBP less than 90 mmHg and Renal: urine output less than 0.5ml/kg/hr for 2 hours or creatinine gr Assessment/Plan Problem List (1) Septic shock: Impression: Resolved. Patient was switched to meropenem on 05/07 after clinical deterioration. No history of ESBL. Will switch back to Zosyn today - will complete 7 day course from last perforation on 05/06, if continued clinical improvement. Last day of Zosyn will be 05/13. Diflucan to be continued until 05/13 as well. Leukocytosis improved. Patient has been afebrile. Off vasopressors as of this morning. Will d/c arterial line and central line once off vasopressors for 24 hours. (2) Perforated chronic gastric ulcer: Impression: Patient initially had a exploratory laparotomy with oversew/Talha patch perforated pyloric ulcer, gastric occlusion, G-tube, J-tube placement on 04/26. She then had a recurrence of pyloric perforation and was taken for repeat ex lap with oversew shows Talha patch of the ulcer repair site leak, as well as an abdominal cavity washout on 05/06. General Surgery following. Continue TPN for now. Trickle feeds initiated 05/11. (3) Status post exploratory laparotomy: Impression: See above. (4) Complete gastric outlet obstruction: Impression: See above. (5) Jejunostomy tube present: Impression: See above. (6) Gastrostomy tube present: Impression: Continue TPN for now. Trickle feeds initiated 05/11. (7) Metabolic acidosis: Impression: Resolved. Patient had a profound metabolic acidosis, likely as a result of her septic state, worsening lactic acid, etc. ABG prior to intubation went 7.2-7.1. She was intubated overnight from 05/07 to 05/08. Extubated on 05/09. (8) Anemia: Impression: Stable. Patient has a chronic history of anemia. Significant oozing and blood loss during central line placement. Received 1 unit of blood 05/07 overnight, 1 unit of blood 05/08. Plan to resume subq heparin with normalization of hemoglobin. Qualifiers: Anemia type: unspecified type Qualified Code(s): D64.9 - Anemia, unspecified (9) HFrEF (heart failure with reduced ejection fraction): Impression: Patient diffusely volume overloaded. Echo was performed at that time which revealed an EF of 45 to 50% she also has tricuspid, mitral regurgitation with moderate pulmonary hypertension. Continue Lasix 40 mg daily, monitor renal function. 5L of urine output over the last 24 hours. Pressors to maintain urine output of at least 25 cc/h. (10) Protein calorie malnutrition: Impression: Patient with evidence of protein calorie malnutrition. She came in with subcutaneous fat loss as well as muscle wasting. She has had low caloric intake throughout her 2-week hospitalization. Many times not exceeding 50% of her recommended caloric intake. Continue TPN. Lipids added today. Trickle feeds ordered as well. Her nutrition calorie goal 1440 per nutrition. Qualifiers: Protein-calorie malnutrition severity: severe Qualified Code(s): E43 - Unspecified severe protein-calorie malnutrition (11) Acute metabolic encephalopathy: Impression: Resolved. Code stroke was called but no intracranial hemorrhage or new focal deficits noted. She has a history of prior CVA as below. There is extensive encephalomalacia. Per teleneurology recommendations, EEG can be considered if she remained persistently encephalopathic, however she is clearing. No focal neurologic deficits. Continue Keppra 500 mg twice daily, has been converted to IV while NPO. (12) Cerebrovascular accident (CVA): Impression: With persistent and baseline left-sided deficits and left upper extremity contracture. On Keppra as above. Not on ASA or statin historically. Consider starting on DOAC and statin for secondary prevention if she clinically stabilizes Qualifiers: CVA mechanism: thrombosis Laterality of affected vessel: right P recerebral and cerebral artery: middle cerebral artery Qualified Code(s): I 63.311 - Cerebral infarction due to thrombosis of right middle cerebral artery (13) Afib: Impression: Rate controlled currently. On telemetry, she has had some runs of RVR. Normally on Eliquis and metoprolol Succinate 25 mg. Metoprolol succinate cannot be given through her J-tube. She has a pacemaker with pacer leads apparent on telemetry and previous EKGs. Working appropriately. Resume DVT prophylaxis. Continues on Lopressor 2.5 3 times daily for rate control, minimal hemodynamic effect but was having significant ectopy when it was held. Qualifiers: Atrial fibrillation type: unspecified Qualified Code(s): I48.91 - Unspecified atrial fibrillation (14) Diabetes mellitus: Impression: Seemingly diet controlled. Last A1c of 5.1%. Qualifiers: Diabetes mellitus complication status: without complication Diabetes mellitus alf insulin use: without joint terminal attack controller use Diabetes mellitus type: t ype 2 Qualified Code(s): E11.9 - Type 2 diabetes mellitus without complications
[2025-05-11] MEDS: HYDROmorphone 1 MG/ML CARPUJECT IVP ONE ×2 (17:03→23:39)
--- NOTE | 2025-05-11 17:05 | PROVIDER PROGRESS NOTE ---
Progress Note Progress Note Progress Note: General Surgery Progress Note Subdiaphragmatic drain with minimal blood tinged serous output. I removed the drain today without complication. The subhepatic drain remains in place for reasons stated previously. Magdiel Lehman MD, FACS General Surgery Service
[2025-05-12] MEDS: HYDROmorphone 1 MG/ML CARPUJECT IVP PRN (01:49)
[2025-05-12 04:24] LABS: VBG PH 7.428 (7.31-7.41)
[2025-05-12 05:15] LABS: ALT ALANINE AMINOTRANSFERASE 11.0 IU/L (10-60); AST ASPARTATE AMINOTRANSFERASE 15.0 IU/L (10-42); BUN - BLOOD UREA NITROGEN 37.0 mg/dL (6-20); CARBON DIOXIDE - CO2 25.0 mmol/L (21-32); CREATININE 0.5 mg/dL (0.6-1.3); GFR - MDRD 123.0 (>89)
[2025-05-12 05:20] LABS: PHOSPHORUS 2.0 mg/dL (2.5-5.0)
[2025-05-12] MEDS: MAGNESIUM SULFATE 2 GRAM 2 GM/50 ML BAG IV ONE (06:30)
[2025-05-12 07:40] LABS: HCT - HEMATOCRIT 25.1 % (37.0-47.0); HGB - HEMOGLOBIN 7.8 g/dL (12.0-16.0); MEAN PLATELET VOLUME 9.7 fL (7.9-10.8); PLT - PLATELET COUNT 418.0 10^3/uL (130-450); RED CELL DISTRIBUTION WIDTH 20.5 % (12.0-15.0)
[2025-05-12] MEDS: POTASSIUM PHOSPHATE 15 MMOL in SODIUM CHLORIDE 0.9% 250 ML IV ONE (08:13)
--- NOTE | 2025-05-12 08:51 | PROVIDER PROGRESS NOTE ---
Subjective Subjective Subjective: Patient is doing well today. Her abdominal pain is improved. Her swelling is improved as well. She worked with physical therapy and is eager to work with them again. She denies any fevers or chills. She has no difficulty breathing. Yesterday, trickle feeds were initiated. Patient had abdominal pain so they were stopped. Will restart today. One DEMETRIA drain was also removed. Will make patient med/surg status. Diet: TPN; trickle feeds started Dispo: Likely SNF on discharge, pending clinical course DVT: Heparin subq Code: DNR Current Medications Current Medications Current Medications: Current Medications Generic Name Dose Route Start Last Admin Trade Name Freq PRN Reason Stop Dose Admin Furosemide 40 mg 05/10/25 09:00 05/11/25 08:44 Furosemide 40 Mg/4 Ml Vial IVP 40 mg DAILY CINDY Administration Heparin Sodium (Porcine) 5,000 unit 05/04/25 09:00 05/11/25 20:50 Heparin 5,000 Unit/Ml Vial SUBQ 5,000 unit BID CINDY Administration Hydromorphone HCl 1 mg 05/11/25 23:56 05/12/25 04:45 Hydromorphone 1 Mg/Ml Carpuject IVP 1 mg Q3HR PRN Administration Severe Pain (Level 7-10) Fluconazole 100 mls @ 100 mls/hr 04/26/25 18:00 05/11/25 19:13 Diflucan 200 Mg/100 Ml IV Infused Q24H CINDY Infusion Levetiracetam 500 mg/ Sodium 105 mls @ 400 mls/hr 05/06/25 21:00 05/11/25 21:01 Chloride IV Infused BID CINDY Infusion Multivitamins 10 ml/ Zinc/ 2,011 mls @ 70 mls/hr 05/07/25 19:00 05/11/25 18:57 Copper/Manganese/Selenium 1 ml IV 70 mls/hr / Amino Acids/Dextrose 1900 [facility] Administration Protocol Fat Emulsion Intravenous 250 mls @ 21 mls/hr 05/10/25 19:00 05/12/25 07:12 Intralipid 20% IV Infused 1900 [facility] Infusion Piperacillin Sod/Tazobactam 100 mls @ 25 mls/hr 05/10/25 13:00 05/12/25 04:45 Sod 3.375 gm/ Sodium Chloride IV 25 mls/hr Q8H CINDY Administration Acetaminophen 1,000 mg in 100 mls @ 400 mls/hr 05/10/25 14:00 05/12/25 06:29 Acetaminophen IV Infused Q8HR CINDY Infusion Potassium Phosphate 15 mmol/ 255 mls @ 63 mls/hr 05/12/25 08:00 05/12/25 08:13 Sodium Chloride IV 05/12/25 12:02 63 mls/hr ONCE ONE Administration Protocol Metoprolol Tartrate 2.5 mg 05/06/25 22:00 05/12/25 06:06 Metoprolol 5 Mg/5 Ml Vial IVP 2.5 mg TID CINDY Administration Ondansetron HCl 4 mg 04/26/25 17:08 Ondansetron Odt 4 Mg Tablet TL Q6HR PRN Nausea / Vomiting Ondansetron HCl 4 mg 04/26/25 17:08 Ondansetron 4 Mg/2 Ml Vial IVP Q6HR PRN Nausea / Vomiting Pantoprazole Sodium 40 mg 04/26/25 21:00 05/11/25 20:50 Pantoprazole 40 Mg Vial IVP 40 mg BID CINDY Administration Polyethylene Glycol 17 gm 04/29/25 10:32 04/29/25 17:05 Polyethylene Glycol 3350 17 Gm Packet JT 17 gm DAILY PRN Administration Bowel Protocol Sodium Chloride 10 ml 04/26/25 17:08 05/12/25 00:15 Sodium Chloride Flush 0.9% 10 Ml Syringe IVP Not Given 0100,0900,1700 CINDY Sodium Chloride 10 ml 04/26/25 17:08 05/12/25 04:10 Sodium Chloride Flush 0.9% 10 Ml Syringe IVP 10 ml PRN PRN Administration NEEDED PER PROVIDER ORDERS Zinc Oxide 113 gm 04/27/25 04:26 05/11/25 06:54 Cod Liver Oil/Zinc Oxide 113 Gm Tube TOP 1 applic PRN PRN Administration Skin Care Objective Vital Signs/Intake & Output Reviewed Vital Signs: Yes Vital Signs: Vital Signs x48h Temp Pulse Pulse Resp BP BP Pulse Ox 05/12/25 07:00 99.1 F 60 12 112/51 L 96 05/12/25 06:06 60 111/55 L 05/12/25 06:00 99.5 F 60 17 111/55 L 94 05/12/25 05:00 99.3 F 60 18 106/51 L 95 05/12/25 04:00 99.5 F 60 24 105/52 L 93 05/12/25 03:00 99.3 F 60 17 124/61 96 05/12/25 02:00 99.1 F 60 17 104/51 L 93 05/12/25 01:00 99.1 F 60 20 110/59 L 96 Intake & Output: Intake & Output 05/09/25 05/10/25 05/11/25 05/12/25 23:59 23:59 23:59 23:59 Intake Total 3090 / 3090 2793 / 2793 3277 / 3277 450 / 450 Output Total 5595 / 5595 5322 / 5322 3965 / 3965 730 / 730 Balance -2505 / -2505 -2529 / -2529 -688 / -688 -280 / -280 Weight (kg) 59 kg 55.5 kg 51.5 kg 57 kg Objective General Appearance: positive No acute distress and Other (Frail and cachectic in appearance with some temporal lobe wasting noted.); negative Anxious Eyes Bilateral: positive Normal inspection, PERRL and EOMI ENT: positive ENT inspection nml, Pharynx nml and No signs of dehydration Neck: positive Nml inspection, Thyroid nml and No JVD Respiratory: positive Chest non-tender, No respiratory distress and Rales (Bibasilar crackles noted, mild and improved); negative Wheezes or Rhonchi Cardiovascular: positive No murmur, No gallop and Irregularly irregular; negative Tachycardia or Systolic murmur Abdomen: positive Other (Midline incision. 1 DEMETRIA drains noted with serosanguineous drainage. G-tube, J-tube in place. No erythema, swelling, induration or fluctuance around site. ) Back: positive Nml inspection; negative CVA tenderness (R) or CVA tenderness (L) Skin: positive Color nml, No rash, Warm and Dry Extremities: positive Non-tender, Nml appearance and Pedal edema (Diffuse pitting edema, now improved. Left upper extremity more swollen than right upper extremity. Abdomen with some fluid noted.); negative Full ROM (Mild weakness of LLE and LUE to flexion and extension. No sensory deficits noted. ) Neurologic/Psychiatric: positive Mood/affect nml, Weakness and Other (Slight facial droop, slight verbal apraxia, left side weakness from previous stroke, and slight contraction at elbow, wrist, hip and knee.) Lab Results 05/12/25 04:10 05/12/25 04:10 Other Labs: Lab Results x24hrs 05/12/25 Range/Units 04:10 WBC 10.9 H (4.8-10.8) x10^3/uL RBC 2.91 L (4.20-5.40) 10^6/uL Hgb 7.8 L (12.0-16.0) g/dL Hct 25.1 L (37.0-47.0) % MCV 86.3 (81.0-99.0) fL MCH 26.8 L (27.0-31.0) pg MCHC 31.1 L (32.0-36.0) g/dL RDW 20.5 H (12.0-15.0) % Plt Count 418 (130-450) 10^3/uL MPV 9.7 (7.9-10.8) fL VBG pH 7.428 H (7.31-7.41) Ionized Calcium 1.14 (1.09-1.30) mmol/L Sodium 133 L (135-145) mmol/L Potassium 3.2 L (3.5-4.5) mmol/L Chloride 103 (101-111) mmol/L Carbon Dioxide 25 (21-32) mmol/L Anion Gap 5.0 L (6-13) BUN 37 H (6-20) mg/dL Creatinine 0.5 L (0.6-1.3) mg/dL Estimated GFR (MDRD) 123 (>89) Glucose 116 H (74-104) mg/dL Calcium 7.2 L (8.5-10.3) mg/dL Phosphorus 2.0 L (2.5-5.0) mg/dL Magnesium 1.8 (1.7-2.3) mg/dL Total Bilirubin 1.0 (0.2-1.0) mg/dL AST 15 (10-42) IU/L ALT 11 (10-60) IU/L Alkaline Phosphatase 266 H (42-121) IU/L Total Protein 4.6 L (6.4-8.9) g/dL Albumin 2.0 L (3.2-5.5) g/dL Globulin 2.6 (2.1-4.2) g/dL Albumin/Globulin Ratio 0.8 L (1.0-2.2) Sepsis Event Note (H) Evaluation Current Stage of Sepsis: Septic shock Possible source of Sepsis: positive GI tract/intra-abdominal Sepsis Criteria Sepsis Criteria: Recorded Heart Rate greater than 90 bpm, WBC count greater than 12,000 or less than 4000, MAP less than 65 mmHg, SBP less than 90 mmHg and Renal: urine output less than 0.5ml/kg/hr for 2 hours or creatinine gr Assessment/Plan Problem List (1) Perforated chronic gastric ulcer: Impression: Patient initially had a exploratory laparotomy with oversew/Talha patch perforated pyloric ulcer, gastric occlusion, G-tube, J-tube placement on 04/26. She then had a recurrence of pyloric perforation and was taken for repeat ex lap with oversew shows Talha patch of the ulcer repair site leak, as well as an abdominal cavity washout on 05/06. One DEMETRIA drain in place, one removed 05/11. General Surgery following. Continue TPN for now. Trickle feeds initiated 05/11 and were not tolerated well; will try again today. (2) Septic shock: Impression: Resolved. Patient was switched to meropenem on 05/07 after clinical deterioration. No history of ESBL. Switched back to Zosyn on 05/10 - will complete 7 day course from last perforation on 05/06, if continued clinical improvement. Last day of Zosyn will be 05/13. Diflucan to be continued until 05/13 as well. Leukocytosis improved. Patient has been afebrile. Off vasopressors. Arterial line removed. (3) Status post exploratory laparotomy: Impression: See above. (4) Complete gastric outlet obstruction: Impression: See above. (5) Jejunostomy tube present: Impression: See above. (6) Gastrostomy tube present: Impression: Continue TPN for now. Trickle feeds initiated 05/11. (7) Metabolic acidosis: Impression: Resolved. Patient had a profound metabolic acidosis, likely as a result of her septic state, worsening lactic acid, etc. ABG prior to intubation went 7.2-7.1. She was intubated overnight from 05/07 to 05/08. Extubated on 05/09. (8) Anemia: Impression: Stable. Patient has a chronic history of anemia. Significant oozing and blood loss during central line placement. Received 1 unit of blood 10/5 overnight, 1 unit of blood 10/. DVT prophylaxis with heparin subq was initiated over 48 hours ago with continued stabilization of hemoglobin. Will restart heparin drip today (in place of Eliquis) for anticoagulation in setting of atrial fibrillation. Qualifiers: Anemia type: unspecified type Qualified Code(s): D64.9 - Anemia, unspecified (9) HFrEF (heart failure with reduced ejection fraction): Impression: Patient diffusely volume overloaded. Echo was performed at that time which revealed an EF of 45 to 50% she also has tricuspid, mitral regurgitation with moderate pulmonary hypertension. Continue Lasix 40 mg daily, monitor renal function. 4L of urine output over the last 24 hours. Will likely switch to oral Lasix 05/13. (10) Protein calorie malnutrition: Impression: Patient with evidence of protein calorie malnutrition. She came in with subcutaneous fat loss as well as muscle wasting. She has had low caloric intake throughout her 2-week hospitalization. Many times not exceeding 50% of her recommended caloric intake. Continue TPN. Lipids added. Trickle feeds ordered as well. Her nutrition calorie goal 1440 per nutrition. Qualifiers: Protein-calorie malnutrition severity: severe Qualified Code(s): E43 - Unspecified severe protein-calorie malnutrition (11) Acute metabolic encephalopathy: Impression: Resolved. Code stroke was called but no intracranial hemorrhage or new focal deficits noted. She has a history of prior CVA as below. There is extensive encephalomalacia. Per teleneurology recommendations, EEG can be considered if she remained persistently encephalopathic, however she is clearing. No focal neurologic deficits. Continue Keppra 500 mg twice daily, has been converted to IV while NPO. (12) Cerebrovascular accident (CVA): Impression: With persistent and baseline left-sided deficits and left upper extremity contracture. On Keppra as above. Not on ASA or statin historically. Qualifiers: CVA mechanism: thrombosis Laterality of affected vessel: right P recerebral and cerebral artery: middle cerebral artery Qualified Code(s): I 63.311 - Cerebral infarction due to thrombosis of right middle cerebral artery (13) Afib: Impression: Rate controlled currently. On telemetry, she has had some runs of RVR. Normally on Eliquis and metoprolol Succinate 25 mg. Metoprolol succinate cannot be given through her J-tube. She has a pacemaker with pacer leads apparent on telemetry and previous EKGs. Working appropriately. DVT prophylaxis with heparin subq was initiated over 48 hours ago with continued stabilization of hemoglobin. Will restart heparin drip today (in place of Eliquis) for anticoagulation in setting of atrial fibrillation. Continues on Lopressor 2.5 3 times daily for rate control, minimal hemodynamic effect but was having significant ectopy when it was held. Qualifiers: Atrial fibrillation type: unspecified Qualified Code(s): I48.91 - Unspecified atrial fibrillation (14) Diabetes mellitus: Impression: Seemingly diet controlled. Last A1c of 5.1%. Qualifiers: Diabetes mellitus complication status: without complication Diabetes mellitus emt intermediate insulin use: without care home use Diabetes mellitus type: t ype 2 Qualified Code(s): E11.9 - Type 2 diabetes mellitus without complications
--- NOTE | 2025-05-12 10:29 | PROVIDER PROGRESS NOTE ---
Subjective General Admit Date: 04/26/25 Procedure Date: 04/26/25 Post Op Days: 16 Procedure Performed: ExLap, Talha patch, Pyloric Exclusion, Gtube/Jtube Other Other Information/Narrative: Patient denies pain this AM. She had some increased pain after drain removal and with trickle tube feeds yesterday so tube feeds were held. RN reports some bowel sounds this AM. Martín and her family at bedside deny any questions or concerns. Wound Assessment Drain Type: DEMETRIA (over repair) Drain Output Description: serosang Approximate mls Output: 115 Review of Systems Status of ROS: 10 or more systems reviewed and unremarkable except as noted in history and below Exam Exam Vital Signs: Vital Signs x48h Temp Pulse Pulse Resp BP BP Pulse Ox 05/12/25 11:00 60 27 H 124/69 97 05/12/25 10:00 99.1 F 60 20 122/64 96 05/12/25 09:00 60 28 H 108/61 97 05/12/25 08:00 99.1 F 60 25 H 119/59 L 96 05/12/25 07:00 99.1 F 60 12 112/51 L 96 05/12/25 06:06 60 111/55 L 05/12/25 06:00 99.5 F 60 17 111/55 L 94 05/12/25 05:00 99.3 F 60 18 106/51 L 95 05/12/25 04:00 99.5 F 60 24 105/52 L 93 Gen: alert and oriented, NAD CV: RRR Pulm: non labored, on RA Abd: soft, non distended with dressing in place. dressing is c/d/i. g tube with scant output. J tube to dependent drainage. DEMETRIA with 115mL serosang fluid out in last [address] with 4200mL out in last 24 hours Ext: LUE with 1/4 strength, RUQ 4/4 strength. 3+ edema in all extremities Impression/Plan Problem List (1) Septic shock: (2) Perforated chronic gastric ulcer: (3) Status post exploratory laparotomy: (4) Complete gastric outlet obstruction: (5) Jejunostomy tube present: (6) Gastrostomy tube present: (7) Metabolic acidosis: (8) Anemia: Qualifiers: Anemia type: unspecified type Qualified Code(s): D64.9 - Anemia, unspecified (9) HFrEF (heart failure with reduced ejection fraction): (10) Protein calorie malnutrition: Qualifiers: Protein-calorie malnutrition severity: severe Qualified Code(s): E43 - Unspecified severe protein-calorie malnutrition (11) Acute metabolic encephalopathy: (12) Cerebrovascular accident (CVA): Qualifiers: CVA mechanism: thrombosis Laterality of affected vessel: right Precerebral and cerebral artery: middle cerebral artery Qualified Code(s): I63.311 - Cerebral infarction due to thrombosis of right middle cerebral artery (13) Afib: Qualifiers: Atrial fibrillation type: unspecified Qualified Code(s): I48.91 - Unspecified atrial fibrillation (14) Diabetes mellitus: Qualifiers: Diabetes mellitus complication status: without complication Diabetes mellitus slide fastener chain assembler insulin use: without slide fastener chain assembler use Diabetes mellitus type: type 2 Qualified Code(s): E11.9 - Type 2 diabetes mellitus without complications Plan Hospital Day # 17 - Perforated pyloric ulcer with recurrent leak on hospital day # 12 POD # 16, Exploratory laparotomy, oversew/Talha patch perforated pyloric ulcer, gastric exclusion (stapled), gastrostomy tube placement, jejunostomy tube placement (04/26) POD #6, Exploratory laparotomy, oversew/Talha patch of ulcer repair site leak, abdominal cavity washout (05/06) 1) Infection - Sepsis resolved. With normalization of WBC and no growth on any of the recent peritoneal cultures, it seems reasonable to discontinue ant imicrobial medications today. Leave remaining drain in place until tolerating TF at goal, at least. This is the "pathological technician" as it overlies the repair. DEMETRIA to bulb suction. G tube to dependent drainage. J tube to TF. 2) Anemia - H&H stable; multifactorial, ABLA, dilution, and chronic disease contributions. As her overall nutrition improves, this will likely improve as well. 3) Acute renal failure - resolved. Consider removing andrews 4) Nutrition - TPN ongoing. Plan to restart trickle tube feeds today. If she does not tolerate/notes increased pain, plan to stop TF and get repeat imaging w ith CXR and KUB. The risk of starting TF is that she may have delayed return of normal bowel function which would stress and possibly rupture the duodenal repair. She is otherwise showing some signs of bowel function and this is felt to be relatively low risk. Continue TPN until tolerating TF at goal. 5) VTEP - Heparin Q 12h. Afib and h/o CVA- ok to start therapeutic heparin drip. Recommend holding on eliquis until patient tolerating TF at goal. 6) respiratory failure- resolved, on RA - ok to transfer to floor from surgery standpoint - working with PT/OT. Patient will need to tolerate TF at goal, be off TPN before surgery feels clinically stable for discharge.
[2025-05-12] MEDS: HEPARIN 25000UNITS/500ML (D5W) 25,000 UNIT/500 ML BAG IV SCH (10:48)
[2025-05-12] MEDS: HYDROmorphone 0.5 MG/0.5 ML SYRINGE IVP ONE (15:49)
[2025-05-12 15:53] LABS: PHOSPHORUS 2.7 mg/dL (2.5-5.0)
[2025-05-12] MEDS: ONDANSETRON 4 MG/2 ML VIAL IVP PRN (17:01)
[2025-05-12] MEDS: POTASSIUM CHLOR 20 MEQ/100 ML 20 MEQ/100 ML BAG IV SCH (17:03)
[2025-05-12] MEDS: TPN (CLINIMIX E 5/15) 2,000 ML with MULTIVITAMIN 10 ML, TRACE ELEMENTS 1 ML IV SCH (18:34)
[2025-05-13 06:20] LABS: VBG PH 7.453 (7.31-7.41)
[2025-05-13 06:21] LABS: HCT - HEMATOCRIT 23.5 % (37.0-47.0); HGB - HEMOGLOBIN 7.3 g/dL (12.0-16.0); MEAN PLATELET VOLUME 9.4 fL (7.9-10.8); PLT - PLATELET COUNT 441.0 10^3/uL (130-450); RED CELL DISTRIBUTION WIDTH 21.0 % (12.0-15.0)
[2025-05-13 06:40] LABS: BUN - BLOOD UREA NITROGEN 35.0 mg/dL (6-20); CARBON DIOXIDE - CO2 23.0 mmol/L (21-32); CREATININE 0.5 mg/dL (0.6-1.3); GFR - MDRD 123.0 (>89); PHOSPHORUS 2.4 mg/dL (2.5-5.0)
--- NOTE | 2025-05-13 09:57 | PROVIDER PROGRESS NOTE ---
Subjective General Admit Date: 04/26/25 Procedure Date: 04/26/25 Post Op Days: 17 Procedure Performed: ExLap, Talha patch, Pyloric Exclusion, Gtube/Jtube Other Other Information/Narrative: Patient denies pain, nausea this AM. Tolerating TF well. No acute events overnight. No questions or concerns this AM. Review of Systems Status of ROS: 10 or more systems reviewed and unremarkable except as noted in history and below Exam Exam Vital Signs: Vital Signs x48h Temp Pulse Pulse Resp BP BP Pulse Ox 05/13/25 08:59 99.7 F 60 33 H 132/81 H 97 05/13/25 05:49 62 114/57 L 05/13/25 05:00 99.5 F 60 30 H 114/57 L 96 Laboratory Last Values WBC 10.2 x10^3/uL (4.8-10.8) 05/13/25 06:00 RBC 2.74 10^6/uL (4.20-5.40) L 05/13/25 06:00 Hgb 7.3 g/dL (12.0-16.0) L 05/13/25 06:00 Hct 23.5 % (37.0-47.0) L 05/13/25 06:00 MCV 85.8 fL (81.0-99.0) 05/13/25 06:00 MCH 26.6 pg (27.0-31.0) L 05/13/25 06:00 MCHC 31.1 g/dL (32.0-36.0) L 05/13/25 06:00 RDW 21.0 % (12.0-15.0) H 05/13/25 06:00 Plt Count 441 10^3/uL (130-450) 05/13/25 06:00 MPV 9.4 fL (7.9-10.8) 05/13/25 06:00 Neut # (Auto) 9.1 10^3/uL (1.5-6.6) H 05/11/25 04:10 Lymph # (Auto) 0.6 10^3/uL (1.5-3.5) L 05/11/25 04:10 Lee # (Auto) 0.8 10^3/uL (0.0-1.0) 05/11/25 04:10 Eos # (Auto) 0.2 10^3/uL (0.0-0.7) 05/11/25 04:10 Baso # (Auto) 0.0 10^3/uL (0.0-0.1) 05/11/25 04:10 Absolute Nucleated RBC 0.00 x10^3/uL 05/11/25 04:10 Total Counted 100 05/08/25 01:20 Band Neuts % (Manual) 1 % (0-10) 05/08/25 01:20 Abnorm Lymph % (Manual) 0 % 05/08/25 01:20 Nucleated RBC % 0.0 /100WBC 05/11/25 04:10 Neutrophils # (Manual) 19.4 10^3/uL (1.5-6.6) H 05/08/25 01:20 Lymphocytes # (Manual) 1.0 10^3/uL (1.5-3.5) L 05/08/25 01:20 Monocytes # (Manual) 0.0 10^3/uL (0.0-1.0) 05/08/25 01:20 Eosinophils # (Manual) 0.0 10^3/uL (0-0.7) 05/08/25 01:20 Basophils # (Manual) 0.2 10^3/uL (0-0.1) H 05/08/25 01:20 Nucleated RBCs 2 % 05/08/25 01:20 Differential Comment MANUAL DIFFERENTIAL 05/08/25 01:20 Manual Slide Review Indicated 05/06/25 16:39 WBC Morphology 1+ SMUDGE CELLS (NORMAL) 05/08/25 01:20 Platelet Estimate NORMAL (130-450,000) (NORMAL) 05/08/25 01:20 Platelet Morphology NORMAL APPEARANCE (NORMAL) 05/08/25 01:20 RBC Morph Micro Appear 1+ ANISOCYTOSIS (NORMAL) 1+ HYPOCHROMASIA (NORMAL) 1+ OVALOCYTES (NORMAL) 1+ POLYCHROMASIA (NORMAL) 1+ SCHISTOCYTES (NORMAL) NRBC'S (NORMAL) 05/08/25 01:20 RBC Morph Micro Appear 1+ ANISOCYTOSIS (NORMAL) 1+ HYPOCHROMASIA (NORMAL) 1+ OVALOCYTES (NORMAL) 1+ POLYCHROMASIA (NORMAL) 1+ SCHISTOCYTES (NORMAL) NRBC'S (NORMAL) 05/08/25 01:20 RBC Morph Micro Appear 1+ ANISOCYTOSIS (NORMAL) 1+ HYPOCHROMASIA (NORMAL) 1+ OVALOCYTES (NORMAL) 1+ POLYCHROMASIA (NORMAL) 1+ SCHISTOCYTES (NORMAL) NRBC'S (NORMAL) 05/08/25 01:20 RBC Morph Micro Appear 1+ ANISOCYTOSIS (NORMAL) 1+ HYPOCHROMASIA (NORMAL) 1+ OVALOCYTES (NORMAL) 1+ POLYCHROMASIA (NORMAL) 1+ SCHISTOCYTES (NORMAL) NRBC'S (NORMAL) 05/08/25 01:20 RBC Morph Micro Appear 1+ ANISOCYTOSIS (NORMAL) 1+ HYPOCHROMASIA (NORMAL) 1+ OVALOCYTES (NORMAL) 1+ POLYCHROMASIA (NORMAL) 1+ SCHISTOCYTES (NORMAL) NRBC'S (NORMAL) 05/08/25 01:20 RBC Morph Micro Appear 1+ ANISOCYTOSIS (NORMAL) 1+ HYPOCHROMASIA (NORMAL) 1+ OVALOCYTES (NORMAL) 1+ POLYCHROMASIA (NORMAL) 1+ SCHISTOCYTES (NORMAL) NRBC'S (NORMAL) 05/08/25 01:20 Smear Path Review SEE SEPARATE REPORT 04/30/25 08:58 PT 13.0 secs (9.9-12.6) H 05/08/25 14:50 INR 1.2 (0.8-1.2) 05/08/25 14:50 APTT 42.4 secs (24.9-33.3) H 05/13/25 06:00 D-Dimer > 1050.0 ng/mL (200.0-255.0) H 05/08/25 14:50 Bld Gas Analysis Time 1130 05/09/25 11:30 Sample Site A-LINE 05/09/25 11:30 ABG pH 7.48 (7.35-7.45) H 05/09/25 11:30 ABG pCO2 22 mmHg (34-45) L 05/09/25 11:30 ABG pO2 106 mmHg (83-108) 05/09/25 11:30 ABG HCO3 16.3 mmol/L (22.0-26.0) L 05/09/25 11:30 ABG Total CO2 17.0 mmol/L (21.0-29.0) L 05/09/25 11:30 ABG O2 Saturation 99 % (95-98) H 05/09/25 11:30 ABG Base Excess -7.4 mmol/L (-2.0-3.0) L 05/09/25 11:30 Marlon Test POSITIVE 05/09/25 11:30 VBG pH 7.453 (7.31-7.41) H 05/13/25 06:00 VBG pCO2 35.6 mmHg (41-51) L 04/30/25 23:40 VBG pO2 56.8 mmHg (25-47) H 04/30/25 23:40 VBG HCO3 22.2 mmol/L (23-28) L 04/30/25 23:40 VBG Total CO2 23.3 mmol/L (24-29) L 04/30/25 23:40 VBG O2 Saturation 89.0 % (60-80) H 04/30/25 23:40 VBG Base Excess -2.8 mmol/L (-2 - +2) L 04/30/25 23:40 Ionized Calcium 1.11 mmol/L (1.09-1.30) 05/13/25 06:00 Respiration Rate 12 b/min 05/08/25 05:45 O2 Delivery Device VENTILATOR 05/09/25 11:30 O2 Liters/Min 5.00 LPM 05/07/25 21:25 Vent Mode SPONT 05/09/25 11:30 FiO2 0.25 05/09/25 11:30 Tidal Volume 350 mL 05/09/25 06:00 PEEP 5 cmH2O 05/09/25 11:30 Pressure Support Vent 10 cmH2O 05/09/25 11:30 EPAP 4 cmH2O 05/07/25 23:45 IPAP 10 cmH2O 05/07/25 23:45 Sodium 134 mmol/L (135-145) L 05/13/25 06:00 Potassium 3.5 mmol/L (3.5-4.5) 05/13/25 06:00 Chloride 104 mmol/L (101-111) 05/13/25 06:00 Carbon Dioxide 23 mmol/L (21-32) 05/13/25 06:00 Anion Gap 7.0 (6-13) 05/13/25 06:00 BUN 35 mg/dL (6-20) H 05/13/25 06:00 Creatinine 0.5 mg/dL (0.6-1.3) L 05/13/25 06:00 Estimated GFR (MDRD) 123 (>89) 05/13/25 06:00 Glucose 177 mg/dL (74-104) H 05/13/25 06:00 POC Whole Bld Glucose 163 mg/dL (70-100) 05/13/25 06:04 Estimat Average Glucose 100 mg/dL (70-100) 04/27/25 05:32 Hemoglobin A1c % 5.1 % (4.27-6.07) 04/27/25 05:32 Lactic Acid 2.9 mmol/L (0.5-2.2) H 05/08/25 06:20 Calcium 7.2 mg/dL (8.5-10.3) L 05/13/25 06:00 Phosphorus 2.4 mg/dL (2.5-5.0) L 05/13/25 06:00 Magnesium 2.1 mg/dL (1.7-2.3) 05/13/25 06:00 Total Bilirubin 1.0 mg/dL (0.2-1.0) 05/12/25 04:10 AST 15 IU/L (10-42) 05/12/25 04:10 ALT 11 IU/L (10-60) 05/12/25 04:10 Alkaline Phosphatase 266 IU/L (42-121) H 05/12/25 04:10 Lactate Dehydrogenase 228 IU/L (140-271) 05/08/25 14:50 C-Reactive Protein < 0.5 mg/dL (<0.5) 04/26/25 11:11 B-Natriuretic Peptide 1086 pg/mL (5-100) H 05/08/25 01:20 Total Protein 4.6 g/dL (6.4-8.9) L 05/12/25 04:10 Albumin 2.0 g/dL (3.2-5.5) L 05/12/25 04:10 Globulin 2.6 g/dL (2.1-4.2) 05/12/25 04:10 Albumin/Globulin Ratio 0.8 (1.0-2.2) L 05/12/25 04:10 Prealbumin 10 mg/dL (17-34) L 05/11/25 04:10 Triglycerides 73 mg/dL 05/13/25 06:00 Lipase 33 U/L (11-82) 04/27/25 05:32 Carcinoembryonic Ag 1.0 ng/mL 05/02/25 12:00 Vitamin B12 763 pg/mL (180-914) 04/28/25 04:28 Urine Color YELLOW 04/26/25 17:13 Urine Clarity CLEAR (CLEAR) 04/26/25 17:13 Urine pH 6.0 PH (5.0-7.5) 04/26/25 17:13 Ur Specific [place] 1.015 (1.002-1.030) 04/26/25 17:13 Urine Protein 30 mg/dL (NEGATIVE) H 04/26/25 17:13 Urine Glucose (UA) NEGATIVE mg/dL (NEGATIVE) 04/26/25 17:13 Urine Ketones 15 mg/dL (NEGATIVE) H 04/26/25 17:13 Urine Occult Blood MODERATE (NEGATIVE) 04/26/25 17:13 Urine Nitrite NEGATIVE (NEGATIVE) 04/26/25 17:13 Urine Bilirubin NEGATIVE (NEGATIVE) 04/26/25 17:13 Urine Urobilinogen 0.2 (NORMAL) E.U./dL (NORMAL) 04/26/25 17:13 Ur Leukocyte Esterase NEGATIVE (NEGATIVE) 04/26/25 17:13 Urine RBC 6-10 /HPF (0-5) H 04/26/25 17:13 Urine WBC 0-3 /HPF (0-5) 04/26/25 17:13 Ur Squamous Epith Cells RARE Squamous (<= Few) 04/26/25 17:13 Urine Crystals 0-2 Uric Acid /LPF 04/26/25 17:13 Urine Bacteria None Seen /HPF (None Seen) 04/26/25 17:13 Urine Casts 3-5 Fine Granular /LPF 04/26/25 17:13 Ur Microscopic Review INDICATED 04/26/25 17:13 Urine Culture Comments NOT INDICATED 04/26/25 17:13 Nasal Screen MRSA (PCR) NEGATIVE (NEGATIVE) 04/26/25 17:05 Stool H. pylori Ag NEGATIVE (Negative) 05/02/25 17:30 Last Dose Date [id number] 05/03/25 11:40 Last Dose Time 1337 05/03/25 11:40 Vancomycin Trough 30.0 ug/mL H* 05/03/25 11:40 Slides for Path Review Indicated 04/30/25 07:42 Blood Type O POSITIVE 05/06/25 16:39 Blood Type Recheck O POSITIVE 04/26/25 07:52 Antibody Screen NEGATIVE 05/06/25 16:39 Crossmatch IS Only See Detail 05/06/25 16:39 Gen: alert and oriented, NAD CV: RRR Pulm: non labored, on RA Abd: soft, non distended with dressing in place. dressing is c/d/i. g tube with scant output. J tube to TF. DEMETRIA with 35mL serosang fluid out in last [address] with 3900mL out in last 24 hours Ext: LUE with 1/4 strength, RUQ 4/4 strength. 3+ edema in all extremities, slowly decreasing Impression/Plan Problem List (1) Perforated chronic gastric ulcer: (2) Septic shock: (3) Status post exploratory laparotomy: (4) Complete gastric outlet obstruction: (5) Jejunostomy tube present: (6) Gastrostomy tube present: (7) Metabolic acidosis: (8) Anemia: Qualifiers: Anemia type: unspecified type Qualified Code(s): D64.9 - Anemia, unspecified (9) HFrEF (heart failure with reduced ejection fraction): (10) Protein calorie malnutrition: Qualifiers: Protein-calorie malnutrition severity: severe Qualified Code(s): E43 - Unspecified severe protein-calorie malnutrition (11) Acute metabolic encephalopathy: (12) Cerebrovascular accident (CVA): Qualifiers: CVA mechanism: thrombosis Laterality of affected vessel: right Precerebral and cerebral artery: middle cerebral artery Qualified Code(s): I63.311 - Cerebral infarction due to thrombosis of right middle cerebral artery (13) Afib: Qualifiers: Atrial fibrillation type: unspecified Qualified Code(s): I48.91 - Unspecified atrial fibrillation (14) Diabetes mellitus: Qualifiers: Diabetes mellitus type: type 2 Diabetes mellitus extermination inspector insulin use: without fci use Diabetes mellitus complication status: without complication Qualified Code(s): E11.9 - Type 2 diabetes mellitus without complications Plan Hospital Day # 18 - Perforated pyloric ulcer with recurrent leak on hospital day # 13 POD # 17, Exploratory laparotomy, oversew/Talha patch perforated pyloric ulcer, gastric exclusion (stapled), gastrostomy tube placement, jejunostomy tube placement (04/26) POD #7, Exploratory laparotomy, oversew/Talha patch of ulcer repair site leak, abdominal cavity washout (05/06) 1) Infection - Sepsis resolved. With normalization of WBC and no growth on any of the recent peritoneal cultures, it seems reasonable to discontinue antimicrobial medications from surgery standpoint. Leave remaining drain in place until tolerating TF at goal, at least. This is the "wire mill rover" as it overlies the repair. DEMETRIA to bulb suction. G tube to dependent drainage. J tube to TF. 2) Anemia - H&H stable; multifactorial, ABLA, dilution, and chronic disease contributions. As her overall nutrition improves, this will likely improve as well. Slightly decreased this AM, will f/u repeat lab (suspect lab variation). 3) Acute renal failure - resolved. Ok to remove andrews from surgery standpoint. 4) Nutrition - TPN ongoing. Plan to increase TF slowly today. Tolerating TF well at this point. Continue TPN until tolerating TF at goal. 5) VTEP - Heparin Q 12h. Afib and h/o CVA- therapeutic heparin drip started 05/12. Recommend holding on eliquis until patient tolerating TF at goal. 6) respiratory failure- resolved, on RA - ok to transfer to floor from surgery standpoint - working with PT/OT, very debilitated (not even sitting at bedside per RN report). Patient will need to tolerate TF at goal, be off TPN before clinically stable for discharge from surgery standpoint. Surgery will continue to follow closely.
--- NOTE | 2025-05-13 10:12 | PROVIDER PROGRESS NOTE ---
Subjective Subjective Subjective: Patient is doing well today. Her abdominal pain is improved. Her swelling is improved as well. She worked with physical therapy and is eager to work with them again. She denies any fevers or chills. She has no difficulty breathing. Yesterday, trickle feeds were initiated. Will advance today. Diet: TPN; trickle feeds started, will advance today - if tolerates well, will d/c TPN by EOD Dispo: Likely SNF on discharge, pending clinical course DVT: Heparin drip Code: DNR Current Medications Current Medications Current Medications: Current Medications Generic Name Dose Route Start Last Admin Trade Name Freq PRN Reason Stop Dose Admin Furosemide 40 mg 05/10/25 09:00 05/12/25 09:16 Furosemide 40 Mg/4 Ml Vial IVP 40 mg DAILY CINDY Administration Heparin Sodium (Porcine) 1,000 - 2,000 unit 05/12/25 09:27 Heparin 1,000 Unit/Ml Vial IVP Q6H PRN aPTT <50 Protocol Hydromorphone HCl 1 mg 05/11/25 23:56 05/12/25 04:45 Hydromorphone 1 Mg/Ml Carpuject IVP 1 mg Q3HR PRN Administration Severe Pain (Level 7-10) Fluconazole 100 mls @ 100 mls/hr 04/26/25 18:00 05/12/25 19:39 Diflucan 200 Mg/100 Ml IV Infused Q24H CINDY Infusion Levetiracetam 500 mg/ Sodium 105 mls @ 400 mls/hr 05/06/25 21:00 05/12/25 22:04 Chloride IV Infused BID CINDY Infusion Fat Emulsion Intravenous 250 mls @ 21 mls/hr 05/10/25 19:00 05/13/25 07:35 Intralipid 20% IV Infused 1900 CINDY Infusion Piperacillin Sod/Tazobactam 100 mls @ 25 mls/hr 05/10/25 13:00 05/13/25 05:45 Sod 3.375 gm/ Sodium Chloride IV 25 mls/hr Q8H CINDY Administration Acetaminophen 1,000 mg in 100 mls @ 400 mls/hr 05/10/25 14:00 05/13/25 07:34 Acetaminophen IV Infused Q8HR CINDY Infusion Heparin Sodium/Dextrose 25,000 unit in 500 mls @ 13.68 mls/hr 05/12/25 10:00 05/13/25 00:24 Heparin Sodium/Dextrose IV 12 unit/kg/hr .[id number] CINDY 13.68 mls/hr Protocol Titration 12 UNIT/KG/HR Multivitamins 10 ml/ Zinc/ 2,011 mls @ 70 mls/hr 05/12/25 19:00 05/12/25 18:34 Copper/Manganese/Selenium 1 ml IV 70 mls/hr / Amino Ac/Electrol/Dextrose/ 1900 CINDY Administration Calcium Protocol Metoprolol Tartrate 2.5 mg 05/06/25 22:00 05/13/25 05:49 Metoprolol 5 Mg/5 Ml Vial IVP 2.5 mg TID CINDY Administration Ondansetron HCl 4 mg 04/26/25 17:08 Ondansetron Odt 4 Mg Tablet TL Q6HR PRN Nausea / Vomiting Ondansetron HCl 4 mg 04/26/25 17:08 05/12/25 17:01 Ondansetron 4 Mg/2 Ml Vial IVP 4 mg Q6HR PRN Administration Nausea / Vomiting Pantoprazole Sodium 40 mg 04/26/25 21:00 05/12/25 21:16 Pantoprazole 40 Mg Vial IVP 40 mg BID CINDY Administration Polyethylene Glycol 17 gm 04/29/25 10:32 04/29/25 17:05 Polyethylene Glycol 3350 17 Gm Packet JT 17 gm DAILY PRN Administration Bowel Protocol Sodium Chloride 10 ml 04/26/25 17:08 05/13/25 03:29 Sodium Chloride Flush 0.9% 10 Ml Syringe IVP Not Given 0100,0900,1700 CINDY Sodium Chloride 10 ml 04/26/25 17:08 05/12/25 04:10 Sodium Chloride Flush 0.9% 10 Ml Syringe IVP 10 ml PRN PRN Administration NEEDED PER PROVIDER ORDERS Zinc Oxide 113 gm 04/27/25 04:26 05/11/25 06:54 Cod Liver Oil/Zinc Oxide 113 Gm Tube TOP 1 applic PRN PRN Administration Skin Care Objective Vital Signs/Intake & Output Reviewed Vital Signs: Yes Vital Signs: Vital Signs x48h Temp Pulse Pulse Resp BP BP Pulse Ox 05/13/25 08:59 99.7 F 60 33 H 132/81 H 97 05/13/25 05:49 62 114/57 L 05/13/25 05:00 99.5 F 60 30 H 114/57 L 96 Intake & Output: Intake & Output 05/10/25 05/11/25 05/12/25 05/13/25 23:59 23:59 23:59 23:59 Intake Total 2793 / 2793 3277 / 3277 3604 / 3604 769 / 769 Output Total 5322 / 5322 3965 / 3965 3940 / 3940 1020 / 1020 Balance -2529 / -2529 -688 / -688 -336 / -336 -251 / -251 Weight (kg) 55.5 kg 51.5 kg 57 kg 57 kg Objective General Appearance: positive No acute distress and Other (Frail and cachectic in appearance with some temporal lobe wasting noted.); negative Anxious Eyes Bilateral: positive Normal inspection, PERRL and EOMI ENT: positive ENT inspection nml, Pharynx nml and No signs of dehydration Neck: positive Nml inspection, Thyroid nml and No JVD Respiratory: positive Chest non-tender, No respiratory distress and Rales (Bibasilar crackles noted, mild and improved); negative Wheezes or Rhonchi Cardiovascular: positive No murmur, No gallop and Irregularly irregular; negative Tachycardia or Systolic murmur Abdomen: positive Other (Midline incision. 1 DEMETRIA drains noted with serosanguineous drainage. G-tube, J-tube in place. No erythema, swelling, induration or fluctuance around site. ) Back: positive Nml inspection; negative CVA tenderness (R) or CVA tenderness (L) Skin: positive Color nml, No rash, Warm and Dry Extremities: positive Non-tender, Nml appearance and Pedal edema (Diffuse pitting edema, now improved. Left upper extremity more swollen than right upper extremity. Abdomen with some fluid noted.); negative Full ROM (Mild weakness of LLE and LUE to flexion and extension. No sensory deficits noted. ) Neurologic/Psychiatric: positive Mood/affect nml, Weakness and Other (Slight facial droop, slight verbal apraxia, left side weakness from previous stroke, and slight contraction at elbow, wrist, hip and knee.) Lab Results 05/13/25 06:00 05/13/25 06:00 Other Labs: Lab Results x24hrs 05/13/25 05/13/25 05/12/25 Range/Units 06:04 06:00 23:50 WBC 10.2 (4.8-10.8) x10^3/uL RBC 2.74 L (4.20-5.40) 10^6/uL Hgb 7.3 L (12.0-16.0) g/dL Hct 23.5 L (37.0-47.0) % MCV 85.8 (81.0-99.0) fL MCH 26.6 L (27.0-31.0) pg MCHC 31.1 L (32.0-36.0) g/dL RDW 21.0 H (12.0-15.0) % Plt Count 441 (130-450) 10^3/uL MPV 9.4 (7.9-10.8) fL APTT 42.4 H 52.6 H (24.9-33.3) secs VBG pH 7.453 H (7.31-7.41) Ionized Calcium 1.11 (1.09-1.30) mmol/L Sodium 134 L (135-145) mmol/L Potassium 3.5 (3.5-4.5) mmol/L Chloride 104 (101-111) mmol/L Carbon Dioxide 23 (21-32) mmol/L Anion Gap 7.0 (6-13) BUN 35 H (6-20) mg/dL Creatinine 0.5 L (0.6-1.3) mg/dL Estimated GFR (MDRD) 123 (>89) Glucose 177 H (74-104) mg/dL POC Whole Bld Glucose 163 (70-100) mg/dL Calcium 7.2 L (8.5-10.3) mg/dL Phosphorus 2.4 L (2.5-5.0) mg/dL Magnesium 2.1 (1.7-2.3) mg/dL Triglycerides 73 mg/dL 05/12/25 05/12/25 05/12/25 Range/Units 23:49 16:58 15:25 WBC (4.8-10.8) x10^3/uL RBC (4.20-5.40) 10^6/uL Hgb (12.0-16.0) g/dL Hct (37.0-47.0) % MCV (81.0-99.0) fL MCH (27.0-31.0) pg MCHC (32.0-36.0) g/dL RDW (12.0-15.0) % Plt Count (130-450) 10^3/uL MPV (7.9-10.8) fL APTT 99.7 H* (24.9-33.3) secs VBG pH (7.31-7.41) Ionized Calcium (1.09-1.30) mmol/L Sodium (135-145) mmol/L Potassium 3.1 L (3.5-4.5) mmol/L Chloride (101-111) mmol/L Carbon Dioxide (21-32) mmol/L Anion Gap (6-13) BUN (6-20) mg/dL Creatinine (0.6-1.3) mg/dL Estimated GFR (MDRD) (>89) Glucose (74-104) mg/dL POC Whole Bld Glucose 168 (70-100) mg/dL Calcium (8.5-10.3) mg/dL Phosphorus 2.7 (2.5-5.0) mg/dL Magnesium (1.7-2.3) mg/dL Triglycerides mg/dL 05/12/25 Range/Units 09:30 WBC (4.8-10.8) x10^3/uL RBC (4.20-5.40) 10^6/uL Hgb (12.0-16.0) g/dL Hct (37.0-47.0) % MCV (81.0-99.0) fL MCH (27.0-31.0) pg MCHC (32.0-36.0) g/dL RDW (12.0-15.0) % Plt Count (130-450) 10^3/uL MPV (7.9-10.8) fL APTT (24.9-33.3) secs VBG pH (7.31-7.41) Ionized Calcium (1.09-1.30) mmol/L Sodium (135-145) mmol/L Potassium (3.5-4.5) mmol/L Chloride (101-111) mmol/L Carbon Dioxide (21-32) mmol/L Anion Gap (6-13) BUN (6-20) mg/dL Creatinine (0.6-1.3) mg/dL Estimated GFR (MDRD) (>89) Glucose (74-104) mg/dL POC Whole Bld Glucose (70-100) mg/dL Calcium (8.5-10.3) mg/dL Phosphorus (2.5-5.0) mg/dL Magnesium 2.4 H (1.7-2.3) mg/dL Triglycerides mg/dL Sepsis Event Note (H) Evaluation Current Stage of Sepsis: Septic shock Possible source of Sepsis: positive GI tract/intra-abdominal Sepsis Criteria Sepsis Criteria: Recorded Heart Rate greater than 90 bpm, WBC count greater than 12,000 or less than 4000, MAP less than 65 mmHg, SBP less than 90 mmHg and Renal: urine output less than 0.5ml/kg/hr for 2 hours or creatinine gr Assessment/Plan Problem List (1) Perforated chronic gastric ulcer: Impression: Patient initially had a exploratory laparotomy with oversew/Talha patch perforated pyloric ulcer, gastric occlusion, G-tube, J-tube placement on 04/26. She then had a recurrence of pyloric perforation and was taken for repeat ex lap with oversew shows Talha patch of the ulcer repair site leak, as well as an abdominal cavity washout on 05/06. One DEMETRIA drain in place with minimal output, one removed 05/11. General Surgery following. Continue TPN for now. Trickle feeds initiated 05/12, will advance today. If tolerates well, will d/c TPN in next 24 hours. (2) Septic shock: Impression: Resolved. Patient was switched to meropenem on 05/07 after clinical deterioration. No history of ESBL. Switched back to Zosyn on 05/10 - will complete 7 day course from last perforation on 05/06, if continued clinical improvement. Last day of Zosyn will be 05/13. Diflucan to be continued until 05/13 as well. Will d/c both by end of day today. Leukocytosis resolved. Patient has been afebrile. Off vasopressors. Arterial line removed. (3) Status post exploratory laparotomy: Impression: See above. (4) Complete gastric outlet obstruction: Impression: See above. (5) Jejunostomy tube present: Impression: See above. (6) Gastrostomy tube present: Impression: Continue TPN for now. Advance feeds. (7) Metabolic acidosis: Impression: Resolved. Patient had a profound metabolic acidosis, likely as a result of her septic state, worsening lactic acid, etc. ABG prior to intubation went 7.2-7.1. She was intubated overnight from 05/07 to 05/08. Extubated on 05/09. (8) Anemia: Impression: Stable. Patient has a chronic history of anemia. Significant oozing and blood loss during central line placement. Received 1 unit of blood 05/07 overnight, 1 unit of blood 05/08. DVT prophylaxis with heparin subq was initiated over 48 hours ago with continued stabilization of hemoglobin. Heparin drip started 05/12 (in place of Eliquis) for anticoagulation in setting of atrial fibrillation. Qualifiers: Anemia type: unspecified type Qualified Code(s): D64.9 - Anemia, unspecified (9) HFrEF (heart failure with reduced ejection fraction): Impression: Patient diffusely volume overloaded, improving today. Echo was performed at that time which revealed an EF of 45 to 50% she also has tricuspid, mitral regurgitation with moderate pulmonary hypertension. Continue IV Lasix 40 mg daily, monitor renal function. Will switch to oral Lasix starting tomorrow. (10) Protein calorie malnutrition: Impression: Patient with evidence of protein calorie malnutrition. She came in with subcutaneous fat loss as well as muscle wasting. She has had low caloric intake throughout her 2-week hospitalization. Many times not exceeding 50% of her recommended caloric intake. Continue TPN. Lipids added. Trickle feeds advanced this morning. Her nutrition calorie goal 1440 per nutrition. Qualifiers: Protein-calorie malnutrition severity: severe Qualified Code(s): E43 - Unspecified severe protein-calorie malnutrition (11) Acute metabolic encephalopathy: Impression: Resolved. Code stroke was called but no intracranial hemorrhage or new focal deficits noted. She has a history of prior CVA as below. There is extensive encephalomalacia. Per teleneurology recommendations, EEG can be considered if she remained persistently encephalopathic, however she is clearing. No focal neurologic deficits. Continue Keppra 500 mg twice daily, has been converted to liquid from from IV today. (12) Cerebrovascular accident (CVA): Impression: With persistent and baseline left-sided deficits and left upper extremity contracture. On Keppra as above. Not on ASA or statin historically. Qualifiers: CVA mechanism: thrombosis Laterality of affected vessel: right P recerebral and cerebral artery: middle cerebral artery Qualified Code(s): I 63.311 - Cerebral infarction due to thrombosis of right middle cerebral artery (13) Afib: Impression: Rate controlled currently. On telemetry, she has had some runs of RVR. Normally on Eliquis and metoprolol Succinate 25 mg. She has a pacemaker with pacer leads apparent on telemetry and previous EKGs. Working appropriately. DVT prophylaxis with heparin subq was initiated over 48 hours ago with continued stabilization of hemoglobin. Will restart heparin drip today (in place of Eliquis) for anticoagulation in setting of atrial fibrillation. Will continue metoprolol tartrate 12.5 mg BID through J-tube. Minimal hemodynamic effect but was having significant ectopy when it was held. Qualifiers: Atrial fibrillation type: unspecified Qualified Code(s): I48.91 - Unspecified atrial fibrillation (14) Diabetes mellitus: Impression: Seemingly diet controlled. Last A1c of 5.1%. Qualifiers: Diabetes mellitus complication status: without complication Diabetes mellitus rodent exterminator insulin use: without rodent exterminator use Diabetes mellitus type: t ype 2 Qualified Code(s): E11.9 - Type 2 diabetes mellitus without complications
[2025-05-13 16:02] LABS: HCT - HEMATOCRIT 23.5 % (37.0-47.0); HGB - HEMOGLOBIN 7.4 g/dL (12.0-16.0)
[2025-05-13] MEDS: METOPROLOL TARTRATE 25 MG TABLET JT ONE (16:45)
[2025-05-13] MEDS: METOPROLOL TARTRATE 25 MG TABLET JT SCH (21:10)
[2025-05-14 06:14] LABS: HCT - HEMATOCRIT 23.3 % (37.0-47.0); HGB - HEMOGLOBIN 7.2 g/dL (12.0-16.0); MEAN PLATELET VOLUME 9.0 fL (7.9-10.8); PLT - PLATELET COUNT 503 10^3/uL (130-450); RED CELL DISTRIBUTION WIDTH 21.4 % (12.0-15.0)
[2025-05-14 06:30] LABS: VBG PH 7.472 (7.31-7.41)
[2025-05-14 06:35] LABS: ALT ALANINE AMINOTRANSFERASE 15.0 IU/L (10-60); AST ASPARTATE AMINOTRANSFERASE 24.0 IU/L (10-42); BUN - BLOOD UREA NITROGEN 33.0 mg/dL (6-20); CARBON DIOXIDE - CO2 27.0 mmol/L (21-32); CREATININE 0.5 mg/dL (0.6-1.3); GFR - MDRD 123.0 (>89); PHOSPHORUS 2.5 mg/dL (2.5-5.0)
[2025-05-14 06:40] LABS: INR 1.2 (0.8-1.2); PT - PROTHROMBIN TIME 13.2 secs (9.9-12.6)
[2025-05-14 07:00] LABS: SLIDE REVIEW? Indicated
[2025-05-14 07:01] LABS: ABNORMAL LYMPHS % (MANUAL) 0 %
[2025-05-14 07:09] LABS: BAND NEUTROPHILS % (MANUAL) 4 %; BASOPHILS # (MANUAL) 0.1 10^3/uL (0-0.1); BASOPHILS % (MANUAL) 1 %; EOSINOPHILS # (MANUAL) 0.4 10^3/uL (0-0.7); LYMPHOCYTES # (MANUAL) 0.7 10^3/uL (1.5-3.5); LYMPHOCYTES % (MANUAL) 8 %; METAMYELOCYTES % (MANUAL) 6 %; MONOCYTES # (MANUAL) 1.1 10^3/uL (0.0-1.0); NEUTROPHILS # (MANUAL) 5.8 10^3/uL (1.5-6.6)
[2025-05-14 07:13] LABS: PLATELET ESTIMATE, MANUAL INCREASED (>450,000) (NORMAL); PLATELET MORPHOLOGY NORMAL APPEARANCE (NORMAL)
--- NOTE | 2025-05-14 08:00 | PROVIDER PROGRESS NOTE ---
Subjective General Admit Date: 04/26/25 Procedure Date: 04/26/25 Post Op Days: 18 Procedure Performed: ExLap, Talha patch, Pyloric Exclusion, Gtube/Jtube Other Other Information/Narrative: Patient denies pain, nausea. Tolerating TF. No events overnight. She was able to sit on the side of the bed for about 15 minutes yesterday. Wound Assessment Wound/Incisions: positive Healing well (staple line CDI) Drain Type: DEMETRIA (over repair) Drain Output Description: serosang Approximate mls Output: 25 Review of Systems Status of ROS: 10 or more systems reviewed and unremarkable except as noted in history and below Exam Exam Vital Signs: Vital Signs x48h Temp Pulse Pulse Resp BP BP Pulse Ox 05/14/25 08:25 60 123/69 05/14/25 07:45 99.1 F 60 30 H 123/69 96 05/14/25 05:00 99.5 F 60 34 H 123/62 94 Gen: alert and oriented, NAD CV: RRR Pulm: non labored, on RA Abd: soft, non distended with dressing in place. incision is c/d/i with eleno in place. g tube with scant output. J tube to TF. DEMETRIA with 25mL serosang fluid out in last [address] with 4375mL out in last [address] with pink urine in tubing today. Ext: LUE with 1/4 strength, RUQ 4/4 strength. 1+ edema in UE, 3+ edema in BLE, slowly decreasing Impression/Plan Problem List (1) Perforated chronic gastric ulcer: (2) Septic shock: (3) Status post exploratory laparotomy: (4) Complete gastric outlet obstruction: (5) Jejunostomy tube present: (6) Gastrostomy tube present: (7) Metabolic acidosis: (8) Anemia: Qualifiers: Anemia type: unspecified type Qualified Code(s): D64.9 - Anemia, unspecified (9) HFrEF (heart failure with reduced ejection fraction): (10) Protein calorie malnutrition: Qualifiers: Protein-calorie malnutrition severity: severe Qualified Code(s): E43 - Unspecified severe protein-calorie malnutrition (11) Acute metabolic encephalopathy: (12) Cerebrovascular accident (CVA): Qualifiers: CVA mechanism: thrombosis Laterality of affected vessel: right Precerebral and cerebral artery: middle cerebral artery Qualified Code(s): I63.311 - Cerebral infarction due to thrombosis of right middle cerebral artery (13) Afib: Qualifiers: Atrial fibrillation type: unspecified Qualified Code(s): I48.91 - Unspecified atrial fibrillation (14) Diabetes mellitus: Qualifiers: Diabetes mellitus complication status: without complication Diabetes mellitus terminal computer operator insulin use: without terminal computer operator use Diabetes mellitus type: type 2 Qualified Code(s): E11.9 - Type 2 diabetes mellitus without complications Plan Hospital Day # 19 - Perforated pyloric ulcer with recurrent leak on hospital day # 14 POD # 18, Exploratory laparotomy, oversew/Talha patch perforated pyloric ulcer, gastric exclusion (stapled), gastrostomy tube placement, jejunostomy tube placement (04/26) POD #8, Exploratory laparotomy, oversew/Talha patch of ulcer repair site leak, abdominal cavity washout (05/06) 1) Infection - Sepsis resolved. WBC wnl x3 days. Ok to discontinue antimicrobial medications from surgery standpoint. Leave remaining drain in place until tolerating TF at goal, at least. This is the "biologist" as it overlies the repair. DEMETRIA to bulb suction. G tube to dependent drainage. J tube to TF. 2) Anemia - H&H stable; multifactorial, ABLA, dilution, and chronic disease co ntributions. As her overall nutrition improves, this will likely improve as well. 3) Acute renal failure - resolved. Ok to remove andrews from surgery standpoint. 4) Nutrition - TPN ongoing. Plan to continue to increase TF slowly today. Tolerating TF well at this point. Continue TPN until tolerating TF at goal. 5) VTEP - Afib and h/o CVA- therapeutic heparin drip started 05/12. Recommend holding on eliquis until patient tolerating TF at goal. 6) respiratory failure- resolved, on RA - ok to transfer to floor from surgery standpoint - working with PT/OT, very debilitated (sat at bedside 15 min on 05/13, per RN report). Patient will need to tolerate TF at goal, be off TPN before clinically stable for discharge from surgery standpoint. Surgery will continue to follow closely.
--- NOTE | 2025-05-14 08:18 | PROVIDER PROGRESS NOTE ---
Subjective Subjective Subjective: Patient is doing well today. Her abdominal pain is improved. Her swelling is improved as well. She worked with physical therapy and is eager to work with them again. She denies any fevers or chills. She has no difficulty breathing. She is tolerating tube feeds well. Diet: TPN; tube feeds, steadily increasing to goal Dispo: Likely SNF on discharge, pending clinical course DVT: Heparin drip - held today due to hematuria Code: DNR Current Medications Current Medications Current Medications: Current Medications Generic Name Dose Route Start Last Admin Trade Name Freq PRN Reason Stop Dose Admin Furosemide 40 mg 05/14/25 09:00 Furosemide 40 Mg Tablet JT DAILY [facility] Heparin Sodium (Porcine) 1,000 - 2,000 unit 05/12/25 09:27 05/14/25 00:52 Heparin 1,000 Unit/Ml Vial IVP 1,000 unit Q6H PRN Administration aPTT <50 Protocol Hydromorphone HCl 1 mg 05/11/25 23:56 05/12/25 04:45 Hydromorphone 1 Mg/Ml Carpuject IVP 1 mg Q3HR PRN Administration Severe Pain (Level 7-10) Fat Emulsion Intravenous 250 mls @ 21 mls/hr 05/10/25 19:00 05/14/25 06:38 Intralipid 20% IV Infused 1900 CINDY Infusion Acetaminophen 1,000 mg in 100 mls @ 400 mls/hr 05/10/25 14:00 05/14/25 06:38 Acetaminophen IV Infused Q8HR CINDY Infusion Heparin Sodium/Dextrose 25,000 unit in 500 mls @ 13.68 mls/hr 05/12/25 10:00 05/14/25 00:52 Heparin Sodium/Dextrose IV 16 unit/kg/hr .[id number] CINDY 18.24 mls/hr Protocol Titration 12 UNIT/KG/HR Multivitamins 10 ml/ Zinc/ 2,011 mls @ 40 mls/hr 05/12/25 19:00 05/13/25 18:31 Copper/Manganese/Selenium 1 ml IV 40 mls/hr / Amino Ac/Electrol/Dextrose/ 1900 CINDY Administration Calcium Protocol Levetiracetam 500 mg 05/13/25 21:00 05/13/25 21:10 Levetiracetam 500 Mg/5 Ml Udc JT 500 mg BID CINDY Administration Metoprolol Tartrate 12.5 mg 05/13/25 21:00 05/13/25 21:10 Metoprolol Tartrate 25 Mg Tablet JT 12.5 mg BID CINDY Administration Ondansetron HCl 4 mg 04/26/25 17:08 Ondansetron Odt 4 Mg Tablet TL Q6HR PRN Nausea / Vomiting Ondansetron HCl 4 mg 04/26/25 17:08 05/12/25 17:01 Ondansetron 4 Mg/2 Ml Vial IVP 4 mg Q6HR PRN Administration Nausea / Vomiting Pantoprazole Sodium 40 mg 04/26/25 21:00 05/13/25 21:04 Pantoprazole 40 Mg Vial IVP 40 mg BID CINDY Administration Polyethylene Glycol 17 gm 04/29/25 10:32 04/29/25 17:05 Polyethylene Glycol 3350 17 Gm Packet JT 17 gm DAILY PRN Administration Bowel Protocol Sodium Chloride 10 ml 04/26/25 17:08 05/14/25 00:55 Sodium Chloride Flush 0.9% 10 Ml Syringe IVP Not Given 0100,0900,1700 CINDY Sodium Chloride 10 ml 04/26/25 17:08 05/12/25 04:10 Sodium Chloride Flush 0.9% 10 Ml Syringe IVP 10 ml PRN PRN Administration NEEDED PER PROVIDER ORDERS Zinc Oxide 113 gm 04/27/25 04:26 05/11/25 06:54 Cod Liver Oil/Zinc Oxide 113 Gm Tube TOP 1 applic PRN PRN Administration Skin Care Objective Vital Signs/Intake & Output Reviewed Vital Signs: Yes Vital Signs: Vital Signs x48h Temp Pulse Resp BP Pulse Ox 05/14/25 07:45 99.1 F 60 30 H 123/69 96 05/14/25 05:00 99.5 F 60 34 H 123/62 94 05/14/25 01:00 99.0 F 60 36 H 130/67 94 Intake & Output: Intake & Output 05/11/25 05/12/25 05/13/25 05/14/25 23:59 23:59 23:59 23:59 Intake Total 3277 / 3277 3604 / 3604 3441 / 3441 879 / 879 Output Total 3965 / 3965 3940 / 3940 4205 / 4205 1200 / 1200 Balance -688 / -688 -336 / -336 -764 / -764 -321 / -321 Weight (kg) 51.5 kg 57 kg 57 kg 56.5 kg Objective General Appearance: positive No acute distress and Other (Frail and cachectic in appearance with some temporal lobe wasting noted.); negative Anxious Eyes Bilateral: positive Normal inspection, PERRL and EOMI ENT: positive ENT inspection nml, Pharynx nml and No signs of dehydration Neck: positive Nml inspection, Thyroid nml and No JVD Respiratory: positive Chest non-tender, No respiratory distress and Rales (Bibasilar crackles noted, mild and improved); negative Wheezes or Rhonchi Cardiovascular: positive No murmur, No gallop and Irregularly irregular; negative Tachycardia or Systolic murmur Abdomen: positive Other (Midline incision. 1 DEMETRIA drains noted with serosanguineous drainage. G-tube, J-tube in place. No erythema, swelling, induration or fluctuance around site. ) Back: positive Nml inspection; negative CVA tenderness (R) or CVA tenderness (L) Skin: positive Color nml, No rash, Warm and Dry Extremities: positive Non-tender, Nml appearance and Pedal edema (Diffuse pitting edema, now improved. Left upper extremity more swollen than right upper extremity. Abdomen with some fluid noted.); negative Full ROM (Mild weakness of LLE and LUE to flexion and extension. No sensory deficits noted. ) Neurologic/Psychiatric: positive Mood/affect nml, Weakness and Other (Slight facial droop, slight verbal apraxia, left side weakness from previous stroke, and slight contraction at elbow, wrist, hip and knee.) Lab Results 05/14/25 06:00 05/14/25 06:00 Other Labs: Lab Results x24hrs 05/14/25 05/14/25 05/14/25 Range/Units 06:14 06:00 06:00 WBC (4.8-10.8) x10^3/uL RBC (4.20-5.40) 10^6/uL Hgb (12.0-16.0) g/dL Hct (37.0-47.0) % MCV (81.0-99.0) fL MCH (27.0-31.0) pg MCHC (32.0-36.0) g/dL RDW (12.0-15.0) % Plt Count (130-450) 10^3/uL MPV (7.9-10.8) fL Neut # (Auto) Lymph # (Auto) Lagrange # (Auto) Eos # (Auto) Baso # (Auto) Absolute Nucleated RBC Total Counted Band Neuts % (Manual) (0 - 10) % Abnorm Lymph % (Manual) % Metamyelocytes % ( - 0) % Nucleated RBC % Neutrophils # (Manual) (1.5-6.6) 10^3/uL Lymphocytes # (Manual) (1.5-3.5) 10^3/uL Monocytes # (Manual) (0.0-1.0) 10^3/uL Eosinophils # (Manual) (0-0.7) 10^3/uL Basophils # (Manual) (0-0.1) 10^3/uL Differential Comment Manual Slide Review Platelet Estimate (NORMAL) Platelet Morphology (NORMAL) RBC Morph Micro Appear 3+ ANISOCYTOSIS 1+ HYPOCHROMASIA (NORMAL) PT 13.2 H (9.9-12.6) secs INR 1.2 (0.8-1.2) APTT 60.7 H (24.9-33.3) secs VBG pH 7.472 H (7.31-7.41) Ionized Calcium 1.15 (1.09-1.30) mmol/L Sodium 133 L (135-145) mmol/L Potassium 3.3 L (3.5-4.5) mmol/L Chloride 102 (101-111) mmol/L Carbon Dioxide 27 (21-32) mmol/L Anion Gap 4.0 L (6-13) BUN 33 H (6-20) mg/dL Creatinine 0.5 L (0.6-1.3) mg/dL Estimated GFR (MDRD) 123 (>89) Glucose 139 H (74-104) mg/dL POC Whole Bld Glucose 139 (70-100) mg/dL Calcium 7.3 L (8.5-10.3) mg/dL Phosphorus 2.5 (2.5-5.0) mg/dL Magnesium 2.1 (1.7-2.3) mg/dL Total Bilirubin 0.7 (0.2-1.0) mg/dL AST 24 (10-42) IU/L ALT 15 (10-60) IU/L Alkaline Phosphatase 341 H (42-121) IU/L Total Protein 4.8 L (6.4-8.9) g/dL Albumin 2.0 L (3.2-5.5) g/dL Globulin 2.8 (2.1-4.2) g/dL Albumin/Globulin Ratio 0.7 L (1.0-2.2) Prealbumin 13 L (17-34) mg/dL 05/14/25 05/14/25 05/14/25 Range/Units 06:00 06:00 06:00 WBC 8.7 (4.8-10.8) x10^3/uL RBC 2.71 L (4.20-5.40) 10^6/uL Hgb 7.2 L (12.0-16.0) g/dL Hct 23.3 L (37.0-47.0) % MCV 86.0 (81.0-99.0) fL MCH 26.6 L (27.0-31.0) pg MCHC 30.9 L (32.0-36.0) g/dL RDW 21.4 H (12.0-15.0) % Plt Count 503 H (130-450) 10^3/uL MPV 9.0 (7.9-10.8) fL Neut # (Auto) Not Reportable Lymph # (Auto) Not Reportable Lagrange # (Auto) Not Reportable Eos # (Auto) Not Reportable Baso # (Auto) Not Reportable Absolute Nucleated RBC Not Reportable Total Counted 100 Band Neuts % (Manual) 4 (0 - 10) % Abnorm Lymph % (Manual) 0 % Metamyelocytes % 6 H ( - 0) % Nucleated RBC % Not Reportable Neutrophils # (Manual) 5.8 (1.5-6.6) 10^3/uL Lymphocytes # (Manual) 0.7 L (1.5-3.5) 10^3/uL Monocytes # (Manual) 1.1 H (0.0-1.0) 10^3/uL Eosinophils # (Manual) 0.4 (0-0.7) 10^3/uL Basophils # (Manual) 0.1 (0-0.1) 10^3/uL Differential Comment MANUAL DIFFERENTIAL Manual Slide Review Indicated Platelet Estimate INCREASED (>450,000) (NORMAL) Platelet Morphology NORMAL APPEARANCE (NORMAL) RBC Morph Micro Appear 1+ SCHISTOCYTES 1+ OVALOCYTES 1+ POLYCHROMASIA (NORMAL) PT (9.9-12.6) secs INR (0.8-1.2) APTT (24.9-33.3) secs VBG pH (7.31-7.41) Ionized Calcium (1.09-1.30) mmol/L Sodium (135-145) mmol/L Potassium (3.5-4.5) mmol/L Chloride (101-111) mmol/L Carbon Dioxide (21-32) mmol/L Anion Gap (6-13) BUN (6-20) mg/dL Creatinine (0.6-1.3) mg/dL Estimated GFR (MDRD) (>89) Glucose (74-104) mg/dL POC Whole Bld Glucose (70-100) mg/dL Calcium (8.5-10.3) mg/dL Phosphorus (2.5-5.0) mg/dL Magnesium (1.7-2.3) mg/dL Total Bilirubin (0.2-1.0) mg/dL AST (10-42) IU/L ALT (10-60) IU/L Alkaline Phosphatase (42-121) IU/L Total Protein (6.4-8.9) g/dL Albumin (3.2-5.5) g/dL Globulin (2.1-4.2) g/dL Albumin/Globulin Ratio (1.0-2.2) Prealbumin (17-34) mg/dL 05/14/25 05/13/25 05/13/25 Range/Units 00:05 18:13 17:00 WBC (4.8-10.8) x10^3/uL RBC (4.20-5.40) 10^6/uL Hgb (12.0-16.0) g/dL Hct (37.0-47.0) % MCV (81.0-99.0) fL MCH (27.0-31.0) pg MCHC (32.0-36.0) g/dL RDW (12.0-15.0) % Plt Count (130-450) 10^3/uL MPV (7.9-10.8) fL Neut # (Auto) Lymph # (Auto) Lagrange # (Auto) Eos # (Auto) Baso # (Auto) Absolute Nucleated RBC Total Counted Band Neuts % (Manual) (0 - 10) % Abnorm Lymph % (Manual) % Metamyelocytes % ( - 0) % Nucleated RBC % Neutrophils # (Manual) (1.5-6.6) 10^3/uL Lymphocytes # (Manual) (1.5-3.5) 10^3/uL Monocytes # (Manual) (0.0-1.0) 10^3/uL Eosinophils # (Manual) (0-0.7) 10^3/uL Basophils # (Manual) (0-0.1) 10^3/uL Differential Comment Manual Slide Review Platelet Estimate (NORMAL) Platelet Morphology (NORMAL) RBC Morph Micro Appear (NORMAL) PT (9.9-12.6) secs INR (0.8-1.2) APTT 43.2 H 43.1 H (24.9-33.3) secs VBG pH (7.31-7.41) Ionized Calcium (1.09-1.30) mmol/L Sodium (135-145) mmol/L Potassium (3.5-4.5) mmol/L Chloride (101-111) mmol/L Carbon Dioxide (21-32) mmol/L Anion Gap (6-13) BUN (6-20) mg/dL Creatinine (0.6-1.3) mg/dL Estimated GFR (MDRD) (>89) Glucose (74-104) mg/dL POC Whole Bld Glucose 132 131 (70-100) mg/dL Calcium (8.5-10.3) mg/dL Phosphorus (2.5-5.0) mg/dL Magnesium (1.7-2.3) mg/dL Total Bilirubin (0.2-1.0) mg/dL AST (10-42) IU/L ALT (10-60) IU/L Alkaline Phosphatase (42-121) IU/L Total Protein (6.4-8.9) g/dL Albumin (3.2-5.5) g/dL Globulin (2.1-4.2) g/dL Albumin/Globulin Ratio (1.0-2.2) Prealbumin (17-34) mg/dL 05/13/25 05/13/25 05/13/25 Range/Units 15:56 13:20 11:54 WBC (4.8-10.8) x10^3/uL RBC (4.20-5.40) 10^6/uL Hgb 7.4 L (12.0-16.0) g/dL Hct 23.5 L (37.0-47.0) % MCV (81.0-99.0) fL MCH (27.0-31.0) pg MCHC (32.0-36.0) g/dL RDW (12.0-15.0) % Plt Count (130-450) 10^3/uL MPV (7.9-10.8) fL Neut # (Auto) Lymph # (Auto) Lagrange # (Auto) Eos # (Auto) Baso # (Auto) Absolute Nucleated RBC Total Counted Band Neuts % (Manual) (0 - 10) % Abnorm Lymph % (Manual) % Metamyelocytes % ( - 0) % Nucleated RBC % Neutrophils # (Manual) (1.5-6.6) 10^3/uL Lymphocytes # (Manual) (1.5-3.5) 10^3/uL Monocytes # (Manual) (0.0-1.0) 10^3/uL Eosinophils # (Manual) (0-0.7) 10^3/uL Basophils # (Manual) (0-0.1) 10^3/uL Differential Comment Manual Slide Review Platelet Estimate (NORMAL) Platelet Morphology (NORMAL) RBC Morph Micro Appear (NORMAL) PT (9.9-12.6) secs INR (0.8-1.2) APTT 48.2 H (24.9-33.3) secs VBG pH (7.31-7.41) Ionized Calcium (1.09-1.30) mmol/L Sodium (135-145) mmol/L Potassium (3.5-4.5) mmol/L Chloride (101-111) mmol/L Carbon Dioxide (21-32) mmol/L Anion Gap (6-13) BUN (6-20) mg/dL Creatinine (0.6-1.3) mg/dL Estimated GFR (MDRD) (>89) Glucose (74-104) mg/dL POC Whole Bld Glucose 175 (70-100) mg/dL Calcium (8.5-10.3) mg/dL Phosphorus (2.5-5.0) mg/dL Magnesium (1.7-2.3) mg/dL Total Bilirubin (0.2-1.0) mg/dL AST (10-42) IU/L ALT (10-60) IU/L Alkaline Phosphatase (42-121) IU/L Total Protein (6.4-8.9) g/dL Albumin (3.2-5.5) g/dL Globulin (2.1-4.2) g/dL Albumin/Globulin Ratio (1.0-2.2) Prealbumin (17-34) mg/dL Sepsis Event Note (H) Evaluation Current Stage of Sepsis: Septic shock Possible source of Sepsis: positive GI tract/intra-abdominal Sepsis Criteria Sepsis Criteria: Recorded Heart Rate greater than 90 bpm, WBC count greater than 12,000 or less than 4000, MAP less than 65 mmHg, SBP less than 90 mmHg and Renal: urine output less than 0.5ml/kg/hr for 2 hours or creatinine gr Assessment/Plan Problem List (1) Perforated chronic gastric ulcer: Impression: Patient initially had a exploratory laparotomy with oversew/Tahla patch perforated pyloric ulcer, gastric occlusion, G-tube, J-tube placement on 04/26. She then had a recurrence of pyloric perforation and was taken for repeat ex lap with oversew shows Talha patch of the ulcer repair site leak, as well as an abdominal cavity washout on 05/06. One DEMETRIA drain in place with minimal output, one removed 05/11. General Surgery following. Continue TPN for now to supplement. Tube feeds initiated, increase steadily to goal. (2) Septic shock: Impression: Resolved. Patient was switched to meropenem on 05/07 after clinical deterioration. No history of ESBL. Switched back to Zosyn on 05/10. Completed 7 day course of Zosyn and diflucan from last perforation. Leukocytosis resolved. Patient has been afebrile. Off vasopressors. Arterial line removed. (3) Anemia: Impression: Stable. Patient has a chronic history of anemia. Significant oozing and blood loss during central line placement. Received 1 unit of blood 05/07 overnight, 1 unit of blood 05/08. DVT prophylaxis with heparin subq was initiated over 48 hours ago with continued stabilization of hemoglobin. Heparin drip started 05/12 (in place of Eliquis) for anticoagulation in setting of atrial fibrillation. This morning, patient is noted to have pink tinged urine. As the morning progressed, this became darker. Some blood clots noted. Still flowing appropriately. Will hold off on removal of Gordon cathether until evening. Hold heparin drip. Qualifiers: Anemia type: unspecified type Qualified Code(s): D64.9 - Anemia, unspecified (4) Status post exploratory laparotomy: Impression: See above. (5) Complete gastric outlet obstruction: Impression: See above. (6) Jejunostomy tube present: Impression: Continue TPN for now to supplement. Tube feeds initiated, increase steadily to goal. (7) Gastrostomy tube present: Impression: See above. (8) Metabolic acidosis: Impression: Resolved. Patient had a profound metabolic acidosis, likely as a result of her septic state, worsening lactic acid, etc. ABG prior to intubation went 7.2-7.1. She was intubated overnight from 05/07 to 05/08. Extubated on 05/09. (9) HFrEF (heart failure with reduced ejection fraction): Impression: Patient diffusely volume overloaded, improving today. Echo was performed at that time which revealed an EF of 45 to 50% she also has tricuspid, mitral regurgitation with moderate pulmonary hypertension. Continue oral Lasix. (10) Protein calorie malnutrition: Impression: Patient with evidence of protein calorie malnutrition. She came in with subcutaneous fat loss as well as muscle wasting. She has had low caloric intake throughout her 2-week hospitalization. Many times not exceeding 50% of her recommended caloric intake. Continue TPN and tube feeds. Once tube feeds at goal, will d/c TPN. Her nutrition calorie goal 1440 per nutrition. Qualifiers: Protein-calorie malnutrition severity: severe Qualified Code(s): E43 - Unspecified severe protein-calorie malnutrition (11) Acute metabolic encephalopathy: Impression: Resolved. Code stroke was called but no intracranial hemorrhage or new focal deficits noted. She has a history of prior CVA as below. There is extensive encephalomalacia. Per teleneurology recommendations, EEG can be considered if she remained persistently encephalopathic, however she is clearing. No focal neurologic deficits. Continue Keppra 500 mg twice daily, has been converted to liquid from from IV today. (12) Cerebrovascular accident (CVA): Impression: With persistent and baseline left-sided deficits and left upper extremity contracture. On Keppra as above. Not on ASA or statin historically. Qualifiers: CVA mechanism: thrombosis Laterality of affected vessel: right P recerebral and cerebral artery: middle cerebral artery Qualified Code(s): I 63.311 - Cerebral infarction due to thrombosis of right middle cerebral artery (13) Afib: Impression: Rate controlled currently. On telemetry, she has had some runs of RVR. Normally on Eliquis and metoprolol Succinate 25 mg. She has a pacemaker with pacer leads apparent on telemetry and previous EKGs. Working appropriately. Heparin drip currently held. Will continue metoprolol tartrate 12.5 mg BID through J-tube. Minimal hemodynamic effect but was having significant ectopy when it was held. Qualifiers: Atrial fibrillation type: unspecified Qualified Code(s): I48.91 - Unspecified atrial fibrillation (14) Diabetes mellitus: Impression: Seemingly diet controlled. Last A1c of 5.1%. Qualifiers: Diabetes mellitus complication status: without complication Diabetes mellitus senior living insulin use: without senior living use Diabetes mellitus type: t ype 2 Qualified Code(s): E11.9 - Type 2 diabetes mellitus without complications
[2025-05-14] MEDS: POTASSIUM CHLORIDE 20 MEQ/15 ML UDC JT ONE (08:25)
[2025-05-14] MEDS: FUROSEMIDE 40 MG TABLET JT SCH (08:25)
--- NOTE | 2025-05-14 09:08 | XRAY Report ---
PROCEDURE: XR Chest 1V INDICATIONS: VON TECHNIQUE: One view of the chest was acquired. COMPARISON: 05/06/2025 FINDINGS: Surgical changes and devices: Left chest wall generator with cardiac leads. Right IJ central venous catheter tip projects over the low SVC. Laparotomy changes with abdominal drain. Lungs and pleura: Moderate pleural effusions with bibasilar atelectasis/consolidation. Mediastinum: Mediastinal contours appear normal. Heart size is normal. Bones and chest wall: No suspicious bony lesions. Overlying soft tissues appear unremarkable. IMPRESSION: Moderate pleural effusions with bibasilar atelectasis/consolidation. Findings have slightly progressed from prior. Reviewed by: Kali Guevara MD on 05/14/2025 8:04 AM LORENZO Approved by: Kali Guevara MD on 05/14/2025 8:04 AM LORENZO Station ID: [id number]
[2025-05-14 17:19] LABS: HCT - HEMATOCRIT 23.3 % (37.0-47.0); HGB - HEMOGLOBIN 7.1 g/dL (12.0-16.0)
[2025-05-15 04:57] LABS: HCT - HEMATOCRIT 23.7 % (37.0-47.0); HGB - HEMOGLOBIN 7.4 g/dL (12.0-16.0); MEAN PLATELET VOLUME 8.9 fL (7.9-10.8); PLT - PLATELET COUNT 602.0 10^3/uL (130-450); RED CELL DISTRIBUTION WIDTH 21.8 % (12.0-15.0)
[2025-05-15 05:22] LABS: BUN - BLOOD UREA NITROGEN 33.0 mg/dL (6-20); CARBON DIOXIDE - CO2 27.0 mmol/L (21-32); CREATININE 0.4 mg/dL (0.6-1.3); GFR - MDRD 159.0 (>89)
--- NOTE | 2025-05-15 06:45 | PROVIDER PROGRESS NOTE ---
Subjective General Admit Date: 04/26/25 Procedure Date: 04/26/25 Post Op Days: 19 Procedure Performed: ExLap, Talha patch, Pyloric Exclusion, Gtube/Jtube Other Other Information/Narrative: Patient denies pain, nausea. Tolerating TF at 25mL/hr. She denies f/c. +BM last night. Working with RN's/PT to increase mobility. Andrews removed yesterday. Wound Assessment Wound/Incisions: positive Healing well (staple line CDI) Drain Type: DEMETRIA (over repair) Drain Output Description: serosang Approximate mls Output: 15 Review of Systems Status of ROS: 10 or more systems reviewed and unremarkable except as noted in h istory and below Exam Exam Vital Signs: Vital Signs x48h Temp Pulse Resp BP Pulse Ox 05/15/25 05:00 60 25 H 154/76 H 94 05/15/25 04:00 98.6 F 05/15/25 01:00 60 26 H 125/86 97 05/15/25 00:00 98.2 F 20 Gen: alert and oriented, NAD CV: RRR Pulm: non labored, on RA Abd: soft, non distended with dressing in place. incision is c/d/i with eleno in place. g tube with scant output. J tube to TF. DEMETRIA with 15mL serosang fluid out in last [address] with 1450mL out in last 24 hours, urine clear (not pink) Ext: LUE with 1/4 strength, RUQ 4/4 strength. 1+ edema in UE, 3+ edema in BLE, slowly decreasing Impression/Plan Problem List (1) Perforated chronic gastric ulcer: (2) Septic shock: (3) Anemia: Qualifiers: Anemia type: unspecified type Qualified Code(s): D64.9 - Anemia, unspecified (4) Status post exploratory laparotomy: (5) Complete gastric outlet obstruction: (6) Jejunostomy tube present: (7) Gastrostomy tube present: (8) Metabolic acidosis: (9) HFrEF (heart failure with reduced ejection fraction): (10) Protein calorie malnutrition: Qualifiers: Protein-calorie malnutrition severity: severe Qualified Code(s): E43 - Unspecified severe protein-calorie malnutrition (11) Acute metabolic encephalopathy: (12) Cerebrovascular accident (CVA): Qualifiers: CVA mechanism: thrombosis Laterality of affected vessel: right Precerebral and cerebral artery: middle cerebral artery Qualified Code(s): I63.311 - Cerebral infarction due to thrombosis of right middle cerebral artery (13) Afib: Qualifiers: Atrial fibrillation type: unspecified Qualified Code(s): I48.91 - Unspecified atrial fibrillation (14) Diabetes mellitus: Qualifiers: Diabetes mellitus complication status: without complication 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 WBC wnl x3 days. Antibiotics d/c on 05/14. Leave remaining drain in place until tolerating TF at goal, at least. This is the "behavioral specialist" as it overlies the repair. DEMETRIA to bulb suction. G tube to dependent drainage. J tube to TF. 2) Anemia - H&H stable; multifactorial, ABLA, dilution, and chronic disease contributions. As her overall nutrition improves, this will likely improve as well. 3) Acute renal failure - resolved. Hematuria 05/14, resolved after andrews removed. Consider UA if wbc increases. 4) Nutrition - TPN ongoing. Tolerating TF well at this point. Continue TPN until tolerating TF at goal. Plan to continue to increase TF slowly, recommend formula with goal no higher than 45mL/hr. 5) VTEP - Afib and h/o CVA- therapeutic heparin drip started 05/12. Recommend holding on eliquis until patient tolerating TF at goal. 6) respiratory failure- resolved, on RA - ok to transfer to floor from surgery standpoint - working with PT/OT, very debilitated (sat at bedside 15 min on 05/13, per RN report). Patient will need to tolerate TF at goal, be off TPN before clinically stable for discharge from surgery standpoint. Surgery will continue to follow closely.
--- NOTE | 2025-05-15 09:33 | PROVIDER PROGRESS NOTE ---
Subjective Subjective Subjective: Patient is a 69-year-old female with a history of a CVA with resultant left- sided weakness who presented with a perforated ulcer. Patient initially had a exploratory laparotomy with oversew/Talha patch perforated pyloric ulcer, gastric occlusion, G-tube, J-tube placement on 04/26. She then had a recurrence of pyloric perforation and was taken for repeat ex lap with oversew shows Talha patch of the ulcer repair site leak, as well as an abdominal cavity washout on 05/06. One DEMETRIA drain in place with minimal output, one removed 05/11. TPN will be discontinued this evening, as patient will be at goal with her tube feeds. Heparin drip has been started in place of Eliquis; if she tolerates this well, can switch to Eliquis. Patient is doing well today. Her abdominal pain is improved. Her swelling is improved as well. She worked with physical therapy and is eager to work with them again. She denies any fevers or chills. She has no difficulty breathing. She is tolerating tube feeds well. Diet: Tube feeds at goal today; TPN will be discontinued this evening Dispo: Likely SNF on discharge DVT: Heparin drip Code: DNR Current Medications Current Medications Current Medications: Current Medications Generic Name Dose Route Start Last Admin Trade Name Freq PRN Reason Stop Dose Admin Furosemide 40 mg 05/14/25 09:00 05/15/25 09:03 Furosemide 40 Mg Tablet JT 40 mg DAILY CINDY Administration Heparin Sodium (Porcine) 1,000 - 2,000 unit 05/12/25 09:27 05/14/25 00:52 Heparin 1,000 Unit/Ml Vial IVP 1,000 unit Q6H PRN Administration aPTT <50 Protocol Hydromorphone HCl 1 mg 05/11/25 23:56 05/15/25 04:47 Hydromorphone 1 Mg/Ml Carpuject IVP 1 mg Q3HR PRN Administration Severe Pain (Level 7-10) Fat Emulsion Intravenous 250 mls @ 21 mls/hr 05/10/25 19:00 05/15/25 06:45 Intralipid 20% IV Infused 1900 CINDY Infusion Heparin Sodium/Dextrose 25,000 unit in 500 mls @ 13.68 mls/hr 05/12/25 10:00 05/15/25 07:59 Heparin Sodium/Dextrose IV 16 unit/kg/hr .[id number] CINDY 18.24 mls/hr Protocol Titration 12 UNIT/KG/HR Multivitamins 10 ml/ Zinc/ 2,011 mls @ 20 mls/hr 05/12/25 19:00 05/15/25 07:59 Copper/Manganese/Selenium 1 ml IV 20 mls/hr / Amino Ac/Electrol/Dextrose/ 1900 CINDY Infusion Calcium Protocol Acetaminophen 1,000 mg in 100 mls @ 400 mls/hr 05/14/25 14:54 Acetaminophen IV Q8HR PRN Moderate Pain (Level 4-6) Levetiracetam 500 mg 05/13/25 21:00 05/15/25 09:03 Levetiracetam 500 Mg/5 Ml Udc JT 500 mg BID CINDY Administration Metoprolol Tartrate 12.5 mg 05/13/25 21:00 05/15/25 09:03 Metoprolol Tartrate 25 Mg Tablet JT 12.5 mg BID CINDY Administration Ondansetron HCl 4 mg 04/26/25 17:08 Ondansetron Odt 4 Mg Tablet TL Q6HR PRN Nausea / Vomiting Ondansetron HCl 4 mg 04/26/25 17:08 05/12/25 17:01 Ondansetron 4 Mg/2 Ml Vial IVP 4 mg Q6HR PRN Administration Nausea / Vomiting Pantoprazole Sodium 40 mg 04/26/25 21:00 05/15/25 09:03 Pantoprazole 40 Mg Vial IVP 40 mg BID CINDY Administration Polyethylene Glycol 17 gm 04/29/25 10:32 04/29/25 17:05 Polyethylene Glycol 3350 17 Gm Packet JT 17 gm DAILY PRN Administration Bowel Protocol Sodium Chloride 10 ml 04/26/25 17:08 05/15/25 09:04 Sodium Chloride Flush 0.9% 10 Ml Syringe IVP 10 ml 0100,0900,1700 CINDY Administration Sodium Chloride 10 ml 04/26/25 17:08 05/15/25 04:47 Sodium Chloride Flush 0.9% 10 Ml Syringe IVP 10 ml PRN PRN Administration NEEDED PER PROVIDER ORDERS Zinc Oxide 113 gm 04/27/25 04:26 05/11/25 06:54 Cod Liver Oil/Zinc Oxide 113 Gm Tube TOP 1 applic PRN PRN Administration Skin Care Objective Vital Signs/Intake & Output Reviewed Vital Signs: Yes Vital Signs: Vital Signs x48h Temp Pulse Pulse Resp BP BP Pulse Ox 05/15/25 09:03 60 145/66 H 05/15/25 09:00 98.2 F 63 26 H 145/66 H 95 05/15/25 05:00 60 25 H 154/76 H 94 05/15/25 04:00 98.6 F Intake & Output: Intake & Output 05/12/25 05/13/25 05/14/25 05/15/25 23:59 23:59 23:59 23:59 Intake Total 3604 / 3604 3441 / 3441 2799 / 2799 1884 / 1884 Output Total 3940 / 3940 4205 / 4205 2365 / 2365 620 / 620 Balance -336 / -336 -764 / -764 434 / 434 1264 / 1264 Weight (kg) 57 kg 57 kg 56.5 kg 57.5 kg Objective General Appearance: positive No acute distress and Other (Frail and cachectic in appearance with some temporal lobe wasting noted.); negative Anxious Eyes Bilateral: positive Normal inspection, PERRL and EOMI ENT: positive ENT inspection nml, Pharynx nml and No signs of dehydration Neck: positive Nml inspection, Thyroid nml and No JVD Respiratory: positive Chest non-tender, No respiratory distress and Rales (Bibasilar crackles noted, mild and improved); negative Wheezes or Rhonchi Cardiovascular: positive No murmur, No gallop and Irregularly irregular; negative Tachycardia or Systolic murmur Abdomen: positive Other (Midline incision. 1 DEMETRIA drains noted with serosanguineous drainage. G-tube, J-tube in place. No erythema, swelling, induration or fluctuance around site. ) Back: positive Nml inspection; negative CVA tenderness (R) or CVA tenderness (L) Skin: positive Color nml, No rash, Warm and Dry Extremities: positive Non-tender, Nml appearance and Pedal edema (Diffuse pitting edema, now improved. Left upper extremity more swollen than right upper extremity. Abdomen with some fluid noted.); negative Full ROM (Mild weakness of LLE and LUE to flexion and extension. No sensory deficits noted. ) Neurologic/Psychiatric: positive Mood/affect nml, Weakness and Other (Slight facial droop, slight verbal apraxia, left side weakness from previous stroke, and slight contraction at elbow, wrist, hip and knee.) Lab Results 05/15/25 04:45 05/15/25 04:45 Other Labs: Lab Results x24hrs 05/15/25 05/15/25 05/15/25 Range/Units 06:07 04:45 00:01 WBC 8.6 (4.8-10.8) x10^3/uL RBC 2.69 L (4.20-5.40) 10^6/uL Hgb 7.4 L (12.0-16.0) g/dL Hct 23.7 L (37.0-47.0) % MCV 88.1 (81.0-99.0) fL MCH 27.5 (27.0-31.0) pg MCHC 31.2 L (32.0-36.0) g/dL RDW 21.8 H (12.0-15.0) % Plt Count 602 H (130-450) 10^3/uL MPV 8.9 (7.9-10.8) fL APTT (24.9-33.3) secs Sodium 138 (135-145) mmol/L Potassium 3.9 (3.5-4.5) mmol/L Chloride 105 (101-111) mmol/L Carbon Dioxide 27 (21-32) mmol/L Anion Gap 6.0 (6-13) BUN 33 H (6-20) mg/dL Creatinine 0.4 L (0.6-1.3) mg/dL Estimated GFR (MDRD) 159 (>89) Glucose 151 H (74-104) mg/dL POC Whole Bld Glucose 152 128 (70-100) mg/dL Calcium 7.6 L (8.5-10.3) mg/dL Magnesium 2.2 (1.7-2.3) mg/dL 05/14/25 05/14/25 05/14/25 Range/Units 17:24 17:00 11:55 WBC (4.8-10.8) x10^3/uL RBC (4.20-5.40) 10^6/uL Hgb 7.1 L (12.0-16.0) g/dL Hct 23.3 L (37.0-47.0) % MCV (81.0-99.0) fL MCH (27.0-31.0) pg MCHC (32.0-36.0) g/dL RDW (12.0-15.0) % Plt Count (130-450) 10^3/uL MPV (7.9-10.8) fL APTT 28.9 (24.9-33.3) secs Sodium (135-145) mmol/L Potassium (3.5-4.5) mmol/L Chloride (101-111) mmol/L Carbon Dioxide (21-32) mmol/L Anion Gap (6-13) BUN (6-20) mg/dL Creatinine (0.6-1.3) mg/dL Estimated GFR (MDRD) (>89) Glucose (74-104) mg/dL POC Whole Bld Glucose 134 129 (70-100) mg/dL Calcium (8.5-10.3) mg/dL Magnesium (1.7-2.3) mg/dL Sepsis Event Note (H) Evaluation Current Stage of Sepsis: Septic shock Possible source of Sepsis: positive GI tract/intra-abdominal Sepsis Criteria Sepsis Criteria: Recorded Heart Rate greater than 90 bpm, WBC count greater than 12,000 or less than 4000, MAP less than 65 mmHg, SBP less than 90 mmHg and Renal: urine output less than 0.5ml/kg/hr for 2 hours or creatinine gr Assessment/Plan Problem List (1) Perforated chronic gastric ulcer: Impression: Patient initially had a exploratory laparotomy with oversew/Talha patch perforated pyloric ulcer, gastric occlusion, G-tube, J-tube placement on 04/26. She then had a recurrence of pyloric perforation and was taken for repeat ex lap with oversew shows Talha patch of the ulcer repair site leak, as well as an abdominal cavity washout on 05/06. One DEMETRIA drain in place with minimal output, one removed 05/11. General Surgery following. Tube feeds initiated, increase steadily to goal by end of the day. TPN will likely be off today. (2) Septic shock: Impression: Resolved. Patient was switched to meropenem on 05/07 after clinical deterioration. No history of ESBL. Switched back to Zosyn on 05/10. Completed 7 day course of Zosyn and diflucan from last perforation. Leukocytosis resolved. Patient has been afebrile. Off vasopressors. Arterial line removed. (3) Anemia: Impression: Stable. Patient has a chronic history of anemia. Significant oozing and blood loss during central line placement. Received 1 unit of blood 05/07 overnight, 1 unit of blood 05/08. DVT prophylaxis with heparin subq was initiated over 48 hours ago with continued stabilization of hemoglobin. Heparin drip started 05/12 (in place of Eliquis) for anticoagulation in setting of atrial fibrillation. Yesterday, she had some hematuria, which is now resolved. Heparin drip stopped yesterday; resumed this morning. Gordon catheter was discontinued. Qualifiers: Anemia type: unspecified type Qualified Code(s): D64.9 - Anemia, unspecified (4) Status post exploratory laparotomy: Impression: See above. (5) Complete gastric outlet obstruction: Impression: See above. (6) Jejunostomy tube present: Impression: Continue TPN for now to supplement. Tube feeds initiated, increase steadily to goal. (7) Gastrostomy tube present: Impression: See above. (8) Metabolic acidosis: Impression: Resolved. Patient had a profound metabolic acidosis, likely as a result of her septic state, worsening lactic acid, etc. ABG prior to intubation went 7.2-7.1. She was intubated overnight from 05/07 to 05/08. Extubated on 05/09. (9) HFrEF (heart failure with reduced ejection fraction): Impression: Patient diffusely volume overloaded, improving today. Echo was performed at that time which revealed an EF of 45 to 50% she also has tricuspid, mitral regurgitation with moderate pulmonary hypertension. Continue oral Lasix. (10) Protein calorie malnutrition: Impression: Patient with evidence of protein calorie malnutrition. She came in with subcutaneous fat loss as well as muscle wasting. She has had low caloric intake throughout her 2-week hospitalization. Many times not exceeding 50% of her recommended caloric intake. Continue tube feeds. TPN will be weaned off by this evening. Her nutrition calorie goal 1440 per nutrition. Qualifiers: Protein-calorie malnutrition severity: severe Qualified Code(s): E43 - Unspecified severe protein-calorie malnutrition (11) Acute metabolic encephalopathy: Impression: Resolved. Code stroke was called but no intracranial hemorrhage or new focal deficits noted. She has a history of prior CVA as below. There is extensive encephalomalacia. Per teleneurology recommendations, EEG can be considered if she remained persistently encephalopathic, however she is clearing. No focal neurologic deficits. Continue Keppra 500 mg twice daily, has been converted to liquid from from IV.. (12) Cerebrovascular accident (CVA): Impression: With persistent and baseline left-sided deficits and left upper extremity contracture. On Keppra as above. Not on ASA or statin historically. Qualifiers: CVA mechanism: thrombosis Laterality of affected vessel: right P recerebral and cerebral artery: middle cerebral artery Qualified Code(s): I 63.311 - Cerebral infarction due to thrombosis of right middle cerebral artery (13) Afib: Impression: Rate controlled currently. On telemetry, she has had some runs of RVR. Normally on Eliquis and metoprolol Succinate 25 mg. She has a pacemaker with pacer leads apparent on telemetry and previous EKGs. Working appropriately. Heparin drip restarted today. Will continue metoprolol tartrate 12.5 mg BID through J-tube. Minimal hemodynamic effect but was having significant ectopy when it was held. Qualifiers: Atrial fibrillation type: unspecified Qualified Code(s): I48.91 - Unspecified atrial fibrillation (14) Diabetes mellitus: Impression: Seemingly diet controlled. Last A1c of 5.1%. Qualifiers: Diabetes mellitus complication status: without complication Diabetes mellitus supervisor fertilizer insulin use: without supervisor fertilizer use Diabetes mellitus type: t ype 2 Qualified Code(s): E11.9 - Type 2 diabetes mellitus without complications
--- NOTE | 2025-05-15 21:31 | XRAY Report ---
PROCEDURE: XR Chest 1V INDICATIONS: kim TECHNIQUE: One view of the chest was acquired. COMPARISON: None. FINDINGS: Surgical changes and devices: Right IJ central venous line. Left sided dual chamber pacemaker. Atherosclerotic vascular calcification noted in the aortic arch. Midline skin eleno with surgical drain in the left upper quadrant Lungs and pleura: Obscuration of the left hemidiaphragm. No pneumothorax. Mediastinum: Mediastinal contours appear normal. Heart size is normal. Bones and chest wall: No suspicious bony lesions. Overlying soft tissues appear unremarkable. IMPRESSION: Left pleural effusion without pneumothorax Reviewed by: Arpit Bowling MD on 05/15/2025 8:28 PM AKDT Approved by: Arpit Bowling MD on 05/15/2025 8:28 PM AKDT Station ID: [id number]
--- NOTE | 2025-05-15 21:33 | XRAY Report ---
PROCEDURE: XR Abdomen 1 V INDICATIONS: abd pain TECHNIQUE: 1 view of the abdomen was acquired. COMPARISON: None. FINDINGS: Surgical changes and devices: Midline skin eleno. 2 surgical drains in the left flank. Bowel: No pneumoperitoneum. The bowel gas pattern is normal. Relative paucity of bowel gas Soft tissues: No masses; visualized solid organ contours appear normal in size. No suspicious abdominal calcifications. Bones: No suspicious bony abnormalities. IMPRESSION: Relative paucity of bowel gas. No radiographic evidence of obstruction Reviewed by: Arpit Bowling MD on 05/15/2025 8:30 PM AKDT Approved by: Arpit Bowling MD on 05/15/2025 8:30 PM AKDT Station ID: [id number]
[2025-05-16] MEDS: ACETAMINOPHEN 1,000 MG/100 ML 1,000 MG/100 ML BAG IV PRN (00:02)
[2025-05-16 05:42] LABS: HCT - HEMATOCRIT 22.0 % (37.0-47.0); MEAN PLATELET VOLUME 8.6 fL (7.9-10.8); PLT - PLATELET COUNT 553.0 10^3/uL (130-450); RED CELL DISTRIBUTION WIDTH 21.4 % (12.0-15.0)
[2025-05-16 05:46] LABS: HGB - HEMOGLOBIN 6.8 g/dL (12.0-16.0)
[2025-05-16 06:24] LABS: ALT ALANINE AMINOTRANSFERASE 35.0 IU/L (10-60); AST ASPARTATE AMINOTRANSFERASE 47.0 IU/L (10-42); BUN - BLOOD UREA NITROGEN 35.0 mg/dL (6-20); CARBON DIOXIDE - CO2 29.0 mmol/L (21-32); CREATININE 0.5 mg/dL (0.6-1.3); GFR - MDRD 123.0 (>89)
--- NOTE | 2025-05-16 07:11 | PROVIDER PROGRESS NOTE ---
Subjective Prog Note Date Prog Note Date: 05/16/25 Prog Note Time: 07:09 Subjective Pt reports feeling: No change Subjective: Patient found on morning labs to be recurrently anemic. Hemoglobin 6.8. Vital signs otherwise stable. She feels well. She has been working with physical therapy, sat at edge of bed for an hour yesterday. Patient denies any fevers or chills. Abdominal pain subsiding. Well-managed on current PRNs. She appears very fatigued otherwise. Patient denies nausea or vomiting. Denies diarrhea. Nursing noted poor urine output this morning, she received straight cath x 1 after nearly 400 mL seen in bladder. This was apparently blood-tinged. No visible clot. Current Medications Current Medications Current Medications: Current Medications Generic Name Dose Route Start Last Admin Trade Name Freq PRN Reason Stop Dose Admin Furosemide 40 mg 05/14/25 09:00 05/15/25 09:03 Furosemide 40 Mg Tablet JT 40 mg DAILY CINDY Administration Hydromorphone HCl 1 mg 05/11/25 23:56 05/15/25 22:18 Hydromorphone 1 Mg/Ml Carpuject IVP 1 mg Q3HR PRN Administration Severe Pain (Level 7-10) Acetaminophen 1,000 mg in 100 mls @ 400 mls/hr 05/14/25 14:54 05/16/25 00:02 Acetaminophen IV 400 mls/hr Q8HR PRN Administration Moderate Pain (Level 4-6) Levetiracetam 500 mg 05/13/25 21:00 05/15/25 20:37 Levetiracetam 500 Mg/5 Ml Udc JT 500 mg BID CINDY Administration Metoprolol Tartrate 12.5 mg 05/13/25 21:00 05/15/25 20:38 Metoprolol Tartrate 25 Mg Tablet JT 12.5 mg BID CINDY Administration Ondansetron HCl 4 mg 04/26/25 17:08 Ondansetron Odt 4 Mg Tablet TL Q6HR PRN Nausea / Vomiting Ondansetron HCl 4 mg 04/26/25 17:08 05/12/25 17:01 Ondansetron 4 Mg/2 Ml Vial IVP 4 mg Q6HR PRN Administration Nausea / Vomiting Pantoprazole Sodium 40 mg 04/26/25 21:00 05/15/25 20:37 Pantoprazole 40 Mg Vial IVP 40 mg BID CINDY Administration Polyethylene Glycol 17 gm 04/29/25 10:32 04/29/25 17:05 Polyethylene Glycol 3350 17 Gm Packet JT 17 gm DAILY PRN Administration Bowel Protocol Sodium Chloride 10 ml 04/26/25 17:08 05/15/25 20:40 Sodium Chloride Flush 0.9% 10 Ml Syringe IVP 10 ml 0100,0900,1700 CINDY Administration Sodium Chloride 10 ml 04/26/25 17:08 05/16/25 05:21 Sodium Chloride Flush 0.9% 10 Ml Syringe IVP 10 ml PRN PRN Administration NEEDED PER PROVIDER ORDERS Zinc Oxide 113 gm 04/27/25 04:26 05/11/25 06:54 Cod Liver Oil/Zinc Oxide 113 Gm Tube TOP 1 applic PRN PRN Administration Skin Care Objective Vital Signs/Intake & Output Reviewed Vital Signs: Yes Vital Signs: Vital Signs x48h Temp Pulse Resp BP Pulse Ox 05/16/25 05:00 36.9 C 60 32 H 118/49 L 94 05/16/25 01:00 36.6 C 60 14 115/54 L 99 Intake & Output: Intake & Output 05/13/25 05/14/25 05/15/25 05/16/25 23:59 23:59 23:59 23:59 Intake Total 3441 / 3441 2799 / 2799 2460 / 2460 487 / 487 Output Total 4205 / 4205 2365 / 2365 1475 / 1475 Balance -764 / -764 434 / 434 985 / 985 487 / 487 Weight (kg) 57 kg 56.5 kg 57.5 kg 52.5 kg Objective Comments/Other: GEN: No acute distress HEENT: NC/AT, normal appearance of external ears and nose. Hearing baseline. Cardiac: Irregular regular rhythm. Rate controlled. No murmurs appreciated. Euvolemic generally on exam. No JVP elevation visible. Pulm: Lungs CTA bilaterally, no cough, no wheezes. No rhonchi or rales. Abdomen: Soft, nondistended. Her tenderness around her incision sites have improved. No erythema surrounding her incisions. No induration. G-tube and J- tube are both patent, G-tube draining to gravity. 1 DEMETRIA drain with scant serosanguineous fluid. Extremities: Chronic left-sided deficits and left upper extremity contracture. Neuro: Face symmetric, CN II through XII intact grossly. Chronic and stable left-sided deficits consistent with prior stroke Psych: Normal affect. Mood euthymic. Cooperative with care. Lab Results 05/16/25 05:23 05/16/25 05:23 Other Labs: Lab Results x24hrs 05/16/25 05/15/25 05/15/25 Range/Units 05:23 13:45 11:48 WBC 8.1 (4.8-10.8) x10^3/uL RBC 2.52 L (4.20-5.40) 10^6/uL Hgb 6.8 L* (12.0-16.0) g/dL Hct 22.0 L (37.0-47.0) % MCV 87.3 (81.0-99.0) fL MCH 27.0 (27.0-31.0) pg MCHC 30.9 L (32.0-36.0) g/dL RDW 21.4 H (12.0-15.0) % Plt Count 553 H (130-450) 10^3/uL MPV 8.6 (7.9-10.8) fL APTT 32.5 (24.9-33.3) secs Sodium 139 (135-145) mmol/L Potassium 4.4 (3.5-4.5) mmol/L Chloride 106 (101-111) mmol/L Carbon Dioxide 29 (21-32) mmol/L Anion Gap 4.0 L (6-13) BUN 35 H (6-20) mg/dL Creatinine 0.5 L (0.6-1.3) mg/dL Estimated GFR (MDRD) 123 (>89) Glucose 129 H (74-104) mg/dL POC Whole Bld Glucose 141 (70-100) mg/dL Calcium 7.7 L (8.5-10.3) mg/dL Magnesium 2.2 (1.7-2.3) mg/dL Total Bilirubin 0.6 (0.2-1.0) mg/dL AST 47 H (10-42) IU/L ALT 35 (10-60) IU/L Alkaline Phosphatase 457 H (42-121) IU/L Total Protein 5.1 L (6.4-8.9) g/dL Albumin 2.1 L (3.2-5.5) g/dL Globulin 3.0 (2.1-4.2) g/dL Albumin/Globulin Ratio 0.7 L (1.0-2.2) Sepsis Event Note (H) Evaluation Current Stage of Sepsis: Septic shock Possible source of Sepsis: positive GI tract/intra-abdominal Sepsis Criteria Sepsis Criteria: Recorded Heart Rate greater than 90 bpm, WBC count greater than 12,000 or less than 4000, MAP less than 65 mmHg, SBP less than 90 mmHg and Renal: urine output less than 0.5ml/kg/hr for 2 hours or creatinine gr Assessment/Plan Problem List (1) Gastrostomy tube present: (2) Jejunostomy tube present: (3) Complete gastric outlet obstruction: (4) Status post exploratory laparotomy: (5) Perforated chronic gastric ulcer: Impression: S/p pyloric exclusion on day of admission. She had a perforated gastric ulcer. This was too near to the pylorus to adequately close. She had a reperforation on 05/06 with Talha patch oversewn and repeat ex lap with washout. Antibiotics and antifungals discontinued on 05/13. Patient remains clinically stable since then. She is on tube feeds through J-tube and venting to her G-tube. She can take oral intake for comfort, but necessary meds and feeds going through J-tube at this time. - Continuing to increase her caloric intake through tube feeds - Per surgery, limiting to no more than 40 to 45 mL/h through her J-tube - Appreciate dietary who has increased to a more concentrated tube feed - Avoiding unnecessary medications through her J-tube as this can clog and cause it to malfunction - Monitor CBC/CMP AM - Surgery following, discussed with them today. (6) Septic shock: Impression: Resolved Patient had a mix of septic and hypovolemic shock. She received meropenem on 05/07 after clinical deterioration while on Zosyn. She completed a 7-day course of antibiotics after her reperforation on 05/06. Has been off of antimicrobials and antifungals since 05/13. Has been off of pressors since around 05/11. - Likely remove central line 05/17 - Monitor CBC a.m.. (7) Anemia: Impression: Recurrent on 05/16. Hgb 6.8. Received 1 unit PRBC in the a.m. Discussed with family extensively, she has not tolerated anticoagulation at this point with multiple bleeding episodes, hematuria. - Discontinue heparin drip - 1 unit PRBC today - Posttransfusion H/H - CBC a.m. - SCDs for VTE prophylaxis Qualifiers: Anemia type: unspecified type Qualified Code(s): D64.9 - Anemia, unspecified (8) Urinary retention: Impression: Demonstrating acute urinary retention on 05/16. The patient had episodes of hematuria over the preceding days. She received straight cath x 1 which was blood-tinged. No clots were visualized. She has been urinating since then reasonably well. Most at risk for clot obstruction. - Continue to monitor with bladder protocol - Strict I/O - Monitor creatinine a.m. - If recurrent retention, we will put in a three-way catheter and likely start CBI (9) Afib: Impression: Stable, chronic Rate controlled. Some ectopy when metoprolol was held. She has a pacemaker and pacing spikes are present on previous EKGs. 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 Qualifiers: Atrial fibrillation type: unspecified Qualified Code(s): I48.91 - Unspecified atrial fibrillation (10) HFrEF (heart failure with reduced ejection fraction): Impression: Improved Patient is now appearing more euvolemic. She has been retaining fluid throughout this admission, very tenuous fluid status. Multiple boluses of fluid with her episodes of shock. TTE performed this hospitalization with a EF 45 to 50% and associated tricuspid and mitral regurgitation with moderate pulmonary hypertension. - Continue oral Lasix 40 mg (11) Protein calorie malnutrition: Impression: Patient with evidence of protein calorie malnutrition. She came in with subcutaneous fat loss as well as muscle wasting. She has had low caloric intake throughout her 2-week hospitalization. Many times not exceeding 50% of her recommended caloric intake. Continue tube feeds. TPN will be weaned off by this evening. Her nutrition calorie goal 1440 per nutrition. - Tube feeds as above - Appreciate assistance of police clerk Qualifiers: Protein-calorie malnutrition severity: severe Qualified Code(s): E43 - Unspecified severe protein-calorie malnutrition (12) Acute metabolic encephalopathy: Impression: Resolved. Had encephalopathy shortly after for surgery. Code stroke was called but no intracranial hemorrhage or new focal deficits noted. She has a history of prior CVA as below. There is extensive encephalomalacia. Teleneurology was consulted, and EEG was recommended if she remained encephalopathic however she cleared. They did recommend continuing her on Keppra 500 mg twice daily Continue Keppra 500 mg twice daily, has been converted to liquid from from IV (13) Cerebrovascular accident (CVA): Impression: With persistent and baseline left-sided deficits and left upper extremity contracture. On Keppra as above. Not on ASA or statin historically. Normally anticoagulated as below. Qualifiers: CVA mechanism: thrombosis Laterality of affected vessel: right P recerebral and cerebral artery: middle cerebral artery Qualified Code(s): I 63.311 - Cerebral infarction due to thrombosis of right middle cerebral artery (14) Diabetes mellitus: Impression: Seemingly diet controlled. Last A1c of 5.1%. 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
--- NOTE | 2025-05-16 22:40 | PROVIDER PROGRESS NOTE ---
Subjective General Admit Date: 04/26/25 Procedure Date: 04/26/25 Post Op Days: 20 Procedure Performed: ExLap, Talha patch, Pyloric Exclusion, Gtube/Jtube Other Other Information/Narrative: Properly she is postop day 10 and postop day 20. Wound Assessment Wound/Incisions: positive Healing well (The wound is intact without evidence of herniation or infection.) Drain Type: DEMETRIA (over repair) Drain Output Description: serosang Approximate mls Output: 15 Review of Systems I did not perform an extensive review of systems with the patient today however she states she has no complaints and specifically is not complaining of any pain or discomfort. Exam Exam Vital Signs: Vital Signs x48h Temp Pulse Pulse Resp BP BP Pulse Ox 05/16/25 20:36 60 120/67 05/16/25 20:35 36.8 C 60 30 H 120/67 05/16/25 17:00 60 32 H 132/72 H 96 General: 69-year old female, appears much older than her stated age, ill appearing but from my understanding this is an improvement HEENT: Normocephalic, atraumatic, extraocular movement intact, mucous membranes pink and moist, sclera anicteric and not injected Neck: Supple without pain on palpation, mass or bruit Cardiac: Regular rate and rhythm without rub, gallop, or murmur Chest: Clear to auscultation bilaterally, but I only listened anterior laterally Abdomen: Soft, nontender, normoactive bowel sounds, gastrostomy tube, jejunostomy tube, and drain in place, midline incision closed with eleno and I removed every other staple. One staple got caught up inthe staple remover and it required some additional manipulation to remove with some discomfort for the patient but this was minimal and the patient stated that it was not so bad. Genitourinary: Deferred Rectal: Deferred Extremities: No gross neurovascular problem, no edema in her hands but some persistent edema in her legs and feet Gait: I did not evaluated as the patient has been in bed but it is clear that she is markedly deconditioned Psychiatric: Alert and oriented to person place and time, asks and answers questions appropriately, mood and affect appropriate Of note neither of her sons was present during my exam and visit with the patient. Impression/Plan Problem List (1) Gastrostomy tube present: (2) Jejunostomy tube present: (3) Complete gastric outlet obstruction: (4) Status post exploratory laparotomy: (5) Perforated chronic gastric ulcer: (6) Septic shock: (7) Anemia: Qualifiers: Anemia type: unspecified type Qualified Code(s): D64.9 - Anemia, un specified (8) Urinary retention: (9) HFrEF (heart failure with reduced ejection fraction): (10) Protein calorie malnutrition: Qualifiers: Protein-calorie malnutrition severity: severe Qualified Code(s): E43 - Unspecified severe protein-calorie malnutrition (11) Acute metabolic encephalopathy: (12) Cerebrovascular accident (CVA): Qualifiers: CVA mechanism: thrombosis Laterality of affected vessel: right Precerebral and cerebral artery: middle cerebral artery Qualified Code(s): I63.311 - Cerebral infarction due to thrombosis of right middle cerebral artery Plan Hospital Day # 21 - Perforated pyloric ulcer with recurrent leak on hospital day # 15 POD # 20, Exploratory laparotomy, oversew/Talha patch perforated pyloric ulcer, gastric exclusion (stapled), gastrostomy tube placement, jejunostomy tube placement (04/26) - Dr. Odell POD #10, Exploratory laparotomy, oversew/Talha patch of ulcer repair site leak, abdominal cavity washout (05/06) - Dr. Lehman 1) ID -Sepsis resolved. WBC wnl x4 days. Antibiotics stopped 2 days ago. I agree with leaving drain in place until tolerating TF at goal, at least. This is the "counter intelligence" as it overlies the repair. DEMETRIA to bulb suction. G tube to dependent drainage. J tube for tube feeds. 2) Heme -Patient receiving transfusion when I visited with good result. Reason likely multifactorial but with every attempt at anticoagulation something bleeds. This issue is a discussion of long term care administrator risk reduction versus immediate side effects-complications. This is a complex discussion-decision that should nonetheless be determined. 3) Renal -ARF resolved. 4) FEN -TPN ongoing. Tolerating TF well at this point. Continue TPN until tolerating TF at goal. Plan to continue to increase TF slowly, recommend formula with goal no higher than 45mL/hr. I am in agreement with Dr. Caty Jane that pills (even crushed ones) should NOT go through a J tube (this is pertinent for Eliquis administration - see #2). Check nutrition parameters weekly. 5) VTEP -Afib and h/o CVA- therapeutic heparin drip started 05/12. Recommend holding on eliquis until patient tolerating TF at goal. Also see #2 for issues with bleeding - patient required a unit of PRBCs. 6) Pulmonary -improved 7) Activity -the number one issue facing this patient currently is her extreme state of weakness-debility. Aggressive PT and OT is required. Patient was ambulatory at home with a walker. 8) Wound -remove remaining eleno in 2-3 days. General surgery will continue to follow closely. CPT 45420
[2025-05-17 04:47] LABS: MEAN PLATELET VOLUME 8.6 fL (7.9-10.8); NRBC ABSOLUTE COUNT (AUTO) 0.00 x10^3/uL; NUCLEATED RED BLOOD CELLS AUTO 0.0 /100WBC
[2025-05-17 04:53] LABS: HCT - HEMATOCRIT 26.0 % (37.0-47.0); HGB - HEMOGLOBIN 8.3 g/dL (12.0-16.0); PLT - PLATELET COUNT 560 10^3/uL (130-450); RED CELL DISTRIBUTION WIDTH 20.0 % (12.0-15.0)
[2025-05-17 05:01] LABS: ALT ALANINE AMINOTRANSFERASE 57.0 IU/L (10-60); AST ASPARTATE AMINOTRANSFERASE 69.0 IU/L (10-42); BUN - BLOOD UREA NITROGEN 37.0 mg/dL (6-20); CARBON DIOXIDE - CO2 29.0 mmol/L (21-32); CREATININE 0.5 mg/dL (0.6-1.3); CRP - C-REACTIVE PROTEIN 9.8 mg/dL (<0.5); GFR - MDRD 123.0 (>89)
--- NOTE | 2025-05-17 07:52 | PROVIDER PROGRESS NOTE ---
Subjective Prog Note Date Prog Note Date: 05/17/25 Prog Note Time: 07:52 Subjective Pt reports feeling: Improved Subjective: Patient is wide-awake while rounding earlier this morning. She is watching television. She says she is feeling well. She is gracious for her care. She denies any pains. Denies any dyspnea. Her sacral ulcer is worsening since it was last photographed 10 days ago. Patient continues to do well. She is denying any fevers or chills. Denies chest pain or dyspnea. Pain in her abdomen is improving. No new concerns. I had an extensive conversation with them about her disposition, she is amenable to LTAC if that is advised. I do think that given her acute needs it may be more appropriate disposition for then SNF. Appreciate case management. Current Medications Current Medications Current Medications: Current Medications Generic Name Dose Route Start Last Admin Trade Name Freq PRN Reason Stop Dose Admin Furosemide 40 mg 05/14/25 09:00 05/16/25 08:48 Furosemide 40 Mg Tablet JT 40 mg DAILY CINDY Administration Hydromorphone HCl 1 mg 05/11/25 23:56 05/16/25 07:46 Hydromorphone 1 Mg/Ml Carpuject IVP 1 mg Q3HR PRN Administration Severe Pain (Level 7-10) Acetaminophen 1,000 mg in 100 mls @ 400 mls/hr 05/14/25 14:54 05/16/25 00:17 Acetaminophen IV Infused Q8HR PRN Infusion Moderate Pain (Level 4-6) Levetiracetam 500 mg 05/13/25 21:00 05/16/25 20:37 Levetiracetam 500 Mg/5 Ml Udc JT 500 mg BID CINDY Administration Lidocaine 1 patch 05/17/25 09:00 Lidocaine Patch 4% TOP DAILY CINDY Metoprolol Tartrate 12.5 mg 05/13/25 21:00 05/16/25 20:36 Metoprolol Tartrate 25 Mg Tablet JT 12.5 mg BID CINDY Administration Ondansetron HCl 4 mg 04/26/25 17:08 Ondansetron Odt 4 Mg Tablet TL Q6HR PRN Nausea / Vomiting Ondansetron HCl 4 mg 04/26/25 17:08 05/12/25 17:01 Ondansetron 4 Mg/2 Ml Vial IVP 4 mg Q6HR PRN Administration Nausea / Vomiting Pantoprazole Sodium 40 mg 04/26/25 21:00 05/16/25 20:37 Pantoprazole 40 Mg Vial IVP 40 mg BID CINDY Administration Polyethylene Glycol 17 gm 04/29/25 10:32 04/29/25 17:05 Polyethylene Glycol 3350 17 Gm Packet JT 17 gm DAILY PRN Administration Bowel Protocol Sodium Chloride 10 ml 04/26/25 17:08 05/17/25 02:48 Sodium Chloride Flush 0.9% 10 Ml Syringe IVP 10 ml 0100,0900,1700 CINDY Administration Sodium Chloride 10 ml 04/26/25 17:08 05/16/25 20:37 Sodium Chloride Flush 0.9% 10 Ml Syringe IVP 10 ml PRN PRN Administration NEEDED PER PROVIDER ORDERS Zinc Oxide 113 gm 04/27/25 04:26 05/11/25 06:54 Cod Liver Oil/Zinc Oxide 113 Gm Tube TOP 1 applic PRN PRN Administration Skin Care Objective Vital Signs/Intake & Output Reviewed Vital Signs: Yes Vital Signs: Vital Signs x48h Pulse Resp BP 05/17/25 05:00 60 34 H 114/59 L Intake & Output: Intake & Output 05/14/25 05/15/25 05/16/25 05/17/25 23:59 23:59 23:59 23:59 Intake Total 2799 / 2799 2460 / 2460 1326 / 1326 Output Total 2365 / 2365 1475 / 1475 1660 / 1660 150 / 150 Balance 434 / 434 985 / 985 -334 / -334 -150 / -150 Weight (kg) 56.5 kg 57.5 kg 52.5 kg 52 kg Objective Comments/Other: GEN: No acute distress HEENT: NC/AT, normal appearance of external ears and nose. Hearing baseline. Cardiac: Irregular regular rhythm. Rate controlled. No murmurs appreciated. Euvolemic generally on exam. No JVP elevation visible. Pulm: Lungs CTA bilaterally, no cough, no wheezes. No rhonchi or rales. Abdomen: Soft, nondistended. Her tenderness around her incision sites have improved. No erythema surrounding her incisions. No induration. G-tube and J- tube are both patent, G-tube draining to gravity. 1 DEMETRIA drain with scant serosanguineous fluid. Back: Sacral decub ulcer covered in eschar, approx 3.5 cm in longest dimension, no surrounding induration or areas of fluctuance. Extremities: Chronic left-sided deficits and left upper extremity contracture. Neuro: Face symmetric, CN II through XII intact grossly. Chronic and stable left-sided deficits consistent with prior stroke Psych: Normal affect. Mood euthymic. Cooperative with care. Lab Results 05/17/25 04:35 05/17/25 04:35 Other Labs: Lab Results x24hrs 05/17/25 05/16/25 05/16/25 Range/Units 04:35 16:00 07:07 WBC 8.0 (4.8-10.8) x10^3/uL RBC 2.99 L (4.20-5.40) 10^6/uL Hgb 8.3 L 8.8 L (12.0-16.0) g/dL Hct 26.0 L (37.0-47.0) % MCV 87.0 (81.0-99.0) fL MCH 27.8 (27.0-31.0) pg MCHC 31.9 L (32.0-36.0) g/dL RDW 20.0 H (12.0-15.0) % Plt Count 560 H (130-450) 10^3/uL MPV 8.6 (7.9-10.8) fL Neut # (Auto) 5.9 (1.5-6.6) 10^3/uL Lymph # (Auto) 0.8 L (1.5-3.5) 10^3/uL [place] # (Auto) 0.9 (0.0-1.0) 10^3/uL Eos # (Auto) 0.2 (0.0-0.7) 10^3/uL Baso # (Auto) 0.0 (0.0-0.1) 10^3/uL Absolute Nucleated RBC 0.00 x10^3/uL Nucleated RBC % 0.0 /100WBC Sodium 140 (135-145) mmol/L Potassium 4.2 (3.5-4.5) mmol/L Chloride 107 (101-111) mmol/L Carbon Dioxide 29 (21-32) mmol/L Anion Gap 4.0 L (6-13) BUN 37 H (6-20) mg/dL Creatinine 0.5 L (0.6-1.3) mg/dL Estimated GFR (MDRD) 123 (>89) Glucose 141 H (74-104) mg/dL Calcium 7.7 L (8.5-10.3) mg/dL Phosphorus (2.5-5.0) mg/dL Total Bilirubin 0.6 (0.2-1.0) mg/dL AST 69 H (10-42) IU/L ALT 57 (10-60) IU/L Alkaline Phosphatase 485 H (42-121) IU/L C-Reactive Protein 9.8 H (<0.5) mg/dL Total Protein 5.1 L (6.4-8.9) g/dL Albumin 2.2 L (3.2-5.5) g/dL Globulin 2.9 (2.1-4.2) g/dL Albumin/Globulin Ratio 0.8 L (1.0-2.2) Prealbumin 16 L (17-34) mg/dL Blood Type O POSITIVE Antibody Screen NEGATIVE Crossmatch IS Only See Detail 05/16/25 Range/Units 05:23 WBC (4.8-10.8) x10^3/uL RBC (4.20-5.40) 10^6/uL Hgb (12.0-16.0) g/dL Hct (37.0-47.0) % MCV (81.0-99.0) fL MCH (27.0-31.0) pg MCHC (32.0-36.0) g/dL RDW (12.0-15.0) % Plt Count (130-450) 10^3/uL MPV (7.9-10.8) fL Neut # (Auto) (1.5-6.6) 10^3/uL Lymph # (Auto) (1.5-3.5) 10^3/uL [place] # (Auto) (0.0-1.0) 10^3/uL Eos # (Auto) (0.0-0.7) 10^3/uL Baso # (Auto) (0.0-0.1) 10^3/uL Absolute Nucleated RBC x10^3/uL Nucleated RBC % /100WBC Sodium (135-145) mmol/L Potassium (3.5-4.5) mmol/L Chloride (101-111) mmol/L Carbon Dioxide (21-32) mmol/L Anion Gap (6-13) BUN (6-20) mg/dL Creatinine (0.6-1.3) mg/dL Estimated GFR (MDRD) (>89) Glucose (74-104) mg/dL Calcium (8.5-10.3) mg/dL Phosphorus 4.0 (2.5-5.0) mg/dL Total Bilirubin (0.2-1.0) mg/dL AST (10-42) IU/L ALT (10-60) IU/L Alkaline Phosphatase (42-121) IU/L C-Reactive Protein (<0.5) mg/dL Total Protein (6.4-8.9) g/dL Albumin (3.2-5.5) g/dL Globulin (2.1-4.2) g/dL Albumin/Globulin Ratio (1.0-2.2) Prealbumin (17-34) mg/dL Blood Type Antibody Screen Crossmatch IS Only Sepsis Event Note (H) Evaluation Current Stage of Sepsis: Septic shock Possible source of Sepsis: positive GI tract/intra-abdominal Sepsis Criteria Sepsis Criteria: Recorded Heart Rate greater than 90 bpm, WBC count greater than 12,000 or less than 4000, MAP less than 65 mmHg, SBP less than 90 mmHg and Renal: urine output less than 0.5ml/kg/hr for 2 hours or creatinine gr Assessment/Plan Problem List (1) Gastrostomy tube present: (2) Jejunostomy tube present: (3) Complete gastric outlet obstruction: (4) Status post exploratory laparotomy: (5) Perforated chronic gastric ulcer: Impression: S/p pyloric exclusion on day of admission. She had a perforated gastric ulcer. This was too near to the pylorus to adequately close. She had a reperforation on 05/06 with Talha patch oversewn and repeat ex lap with washout. Antibiotics and antifungals discontinued on 05/13. Patient remains clinically stable since then. She is on tube feeds through J-tube and venting to her G-tube. She can take oral intake for comfort, but necessary meds and feeds going through J-tube at this time. - Continuing to increase her caloric intake through tube feeds, See below nutrition transitioning to peptide based formula - Per surgery, limiting to no more than 40 to 45 mL/h through her J-tube - May need periodic IV hydration, will continue to monitor BMP - Avoiding unnecessary medications through her J-tube as this can clog and cause it to malfunction - Monitor CBC/CMP AM - Discussed with surgery 05/16, appreciate their input. (6) Sacral decubitus ulcer: Impression: Technically unstageable, but eschar not fully covering and appears to be deep stage II. This was present on arrival. It is progressed from a stage I to a stage II. - Continue offloading, to the chair as frequently as possible. - Continue rehab working with PT - Nutrition is working on getting her a higher peptide based tube feed, increase caloric needs - Continue daily dressing changes - Will discuss with surgery later today Qualifiers: Pressure injury stage: stage 2 Qualified Code(s): L89.152 - Pressure ulcer of sacral region, stage 2 (7) Septic shock: Impression: Resolved, remained normotensive. Patient had a mix of septic and hypovolemic shock. She received meropenem on 05/07 after clinical deterioration while on Zosyn. She completed a 7-day course of antibiotics after her reperforation on 05/06. Has been off of antimicrobials and antifungals since 05/13. Has been off of pressors since around 05/11. - Likely remove central line 05/17 - Monitor CBC a.m.. (8) Anemia: Impression: Stable after last transfusion. Hgb 8.3 on 05/17. Discussed with family extensively, she has not tolerated anticoagulation at this point with multiple bleeding episodes, hematuria. Anticoagulation was discontinued altogether on 05/16. This was discussed with family and they are in agreement. She is at risk for recurrent stroke, but the risk-benefit favors discontinuing anticoagulation at this time. Last transfusion received on 05/16. Improved hemoglobin from 6.8->8.8. - CBC a.m., if holding steady likely medically ready for discharge 05/18 - SCDs for VTE prophylaxis Qualifiers: Anemia type: unspecified type Qualified Code(s): D64.9 - Anemia, unspecified (9) Urinary retention: Impression: Has not recurred. She is peeing she does not have any clots visible in her urine. Patient began to demonstrate acute urinary retention on 05/16. Had episodes of hematuria over the preceding days. Found to be retaining at that time on bladder scan, with straight cath x 1 on 05/16 Yielding 4 and 50 mL of blood- tinged urine. No clots were visualized. She has been urinating since then reasonably well. Most at risk for clot obstruction. - Continue to monitor with bladder protocol - Strict I/O - Monitor creatinine a.m. - If recurrent retention, we will put in a three-way catheter and likely start CBI (10) HFrEF (heart failure with reduced ejection fraction): Impression: Stable. Electrolytes remain normal, creatinine remains normal. Patient is now appearing more euvolemic. She has been retaining fluid throughout this admission, very tenuous fluid status. Multiple boluses of fluid with her episodes of shock. TTE performed this hospitalization with a EF 45 to 50% and associated tricuspid and mitral regurgitation with moderate pulmonary hypertension. - Continue oral Lasix 40 mg qd - Electrolyte monitoring as above (11) Protein calorie malnutrition: Impression: Patient with evidence of protein calorie malnutrition. She came in with subcutaneous fat loss as well as muscle wasting. She has had low caloric intake During the early parts of her hospitalization. When eating, she was not exceeding 50% of her recommended caloric intake. Her tube feeds initially had to be stopped multiple times due to intolerance. She was briefly on TPN. Her nutrition calorie goal 1440 per nutrition. Possibly higher with her sacral ulcer and wound healing goals. - Tube feeds as above - Appreciate assistance of clinical heating equipment installer Qualifiers: Protein-calorie malnutrition severity: severe Qualified Code(s): E43 - Unspecified severe protein-calorie malnutrition (12) Acute metabolic encephalopathy: Impression: Resolved. Had encephalopathy shortly after 1st surgery. Code stroke was called but no intracranial hemorrhage or new focal deficits noted. She has a history of prior CVA as below. There is extensive encephalomalacia. Teleneurology was consulted, and EEG was recommended if she remained encephalopathic however she cleared. They did recommend continuing her on Keppra 500 mg twice daily Continue Keppra 500 mg twice daily, has been converted to liquid from from IV (13) Cerebrovascular accident (CVA): Impression: With persistent and baseline left-sided deficits and left upper extremity contracture. On Keppra as above. Not on ASA or statin historically. - At risk for recurrent stroke with out being on anticoagulation, but unable to tolerate as above - Monitoring clinically Qualifiers: CVA mechanism: thrombosis Laterality of affected vessel: right P recerebral and cerebral artery: middle cerebral artery Qualified Code(s): I 63.311 - Cerebral infarction due to thrombosis of right middle cerebral artery
--- NOTE | 2025-05-17 18:03 | PROVIDER PROGRESS NOTE ---
Subjective General Admit Date: 04/26/25 Procedure Date: 04/26/25 Post Op Days: 21 Procedure Performed: ExLap, Talha patch, Pyloric Exclusion, Gtube/Jtube Other Other Information/Narrative: 04/26/2025: ExLap, Talha patch with pyloric exclusion, G tube, J tube 05/06/2025: ExLap for leak at talha patch, repair talha patch POD11. Tolerating TF and FWF at adjusted rate for concentrated formulation yesterday. Abdomen soft/flat/nontender, having BMs. Has had just a few sips of liquids for comfort lately. Denies pain/n/v. Up to chair twice yesterday and once today. DEMETRIA in RUQ is SSF. Wound Assessment Wound/Incisions: positive Healing well (The wound is intact without evidence of herniation or infection.) Drain Type: DEMETRIA (over repair) Drain Output Description: serosang Review of Systems Status of ROS: 10 or more systems reviewed and unremarkable except as noted in history and below Exam Exam Vital Signs: Vital Signs x48h Temp Pulse Resp BP Pulse Ox 05/17/25 16:39 36.8 C 60 26 H 122/61 97 05/17/25 12:42 36.5 C 60 28 H 114/68 97 General: 69-year old female, appears much older than her stated age, frail and ill but improving HEENT: Normocephalic, atraumatic, Neck: RIJ CVC in place, hemostatic Cardiac: Regular rate and rhythm without rub, gallop, or murmur Chest: No wheezing/distress, normal breathing Abdomen: Soft, nontender, normoactive bowel sounds, gastrostomy tube, jejunostomy tube, and drain in place, midline incision CDI with eleno . Extremities: No gross neurovascular problem, no edema in her hands but some persistent edema in her legs and feet Psychiatric: Alert and oriented to person place and time, asks and answers questions appropriately, mood and affect appropriate Respiratory crackles ABX Reporting Has patient been on IV antibiotics over the past 48 hours?: No Impression/Plan Problem List (1) Gastrostomy tube present: (2) Jejunostomy tube present: (3) Complete gastric outlet obstruction: (4) Status post exploratory laparotomy: (5) Perforated chronic gastric ulcer: (6) Sacral decubitus ulcer: Qualifiers: Pressure injury stage: stage 2 Qualified Code(s): L89.152 - Pressure ulcer of sacral region, stage 2 (7) Septic shock: (8) Anemia: Qualifiers: Anemia type: unspecified type Qualified Code(s): D64.9 - Anemia, unspecified (9) Urinary retention: (10) HFrEF (heart failure with reduced ejection fraction): (11) Protein calorie malnutrition: Qualifiers: Protein-calorie malnutrition severity: severe Qualified Code(s): E43 - Unspecified severe protein-calorie malnutrition (12) Acute metabolic encephalopathy: (13) Cerebrovascular accident (CVA): Qualifiers: CVA mechanism: thrombosis Laterality of affected vessel: right Precerebral and cerebral artery: middle cerebral artery Qualified Code(s): I63.311 - Cerebral infarction due to thrombosis of right middle cerebral artery Plan 69yoF admitted with perforated pyloric ulcer. POD # 21, Exploratory laparotomy, oversew/Talha patch perforated pyloric ulcer, gastric exclusion (stapled), gastrostomy tube placement, jejunostomy tube placement (04/26) - Dr. Odell POD #11, Exploratory laparotomy, oversew/Talha patch of ulcer repair site leak, abdominal cavity washout (05/06) - Dr. Lehman H/o Afib on Eliquis with pacemaker, Echo this admission with EF 45-50%. Hospital course has been notable for tenuous volume status between significant third spacing and edema/anasarca as well as intravascular hypovolemia. On and off pressors during the first week. Transient AMS/delirium after ativan concerning for recurrent CVA, but imaging demonstrated only her old CVA lesion. Significant blood loss from RIJ CVC requiring multiple blood products to correct the resultant coagulopathy/hemolysis. 1) ID -Sepsis resolved. WBC wnl x5 days. Antibiotics stopped 3 days ago. Leaving drain in place until tolerating TF at goal, at least. This is the "copper miner blasting" as it overlies the repair. DEMETRIA to bulb suction. G tube to dependent drainage. J tube for tube feeds. 2) Heme-transfusion yesterday with appropriate response. With every attempt at anticoagulation something bleeds. This issue is a discussion of skilled nursing risk reduction versus immediate side effects-complications. This is a complex discussion-decision that should nonetheless be determined. 3) Renal-ARF resolved. 4) FEN-TPN off, Tolerating TF well at this point. TF formula with goal no higher than 45mL/hr. Pills (even crushed ones) should NOT go through a J tube (this is pertinent for Eliquis administration - see #2). Check nutrition parameters weekly. 5) VTEP -Afib and h/o CVA- therapeutic heparin drip started 05/12. Recommend holding on eliquis until patient tolerating TF at goal. Also see #2 for issues with bleeding 6) Pulmonary-improved 7) Activity-the number one issue facing this patient currently is her extreme state of weakness-debility. Aggressive PT and OT is required. Patient was ambulatory at home with a walker. 8) Wound-remove remaining eleno in 2-3 days. termination clerk plan: repeat EGD in 3-6m to assess opening of pyloric exclusion and or ulcer regression. Repeat biopsies of mass/h pylori (is pyloric exclusion is open). Consider PET for confirmation of no malignancy. If pylorus opens on its own, will be able to resume PO feeds and DC G/J. If pylorus does not reopen, goal to reoperate for transition to G-J anastomosis once she has rehab'd well. Ulcer biopsies benign/CEA normal; no gastric biopsies for H pylori but stool h pylori negative. Ro Odell DO, FACS General Surgeon, [facility]
[2025-05-18 05:00] LABS: HCT - HEMATOCRIT 28.7 % (37.0-47.0); HGB - HEMOGLOBIN 8.7 g/dL (12.0-16.0); MEAN PLATELET VOLUME 8.9 fL (7.9-10.8); PLT - PLATELET COUNT 661.0 10^3/uL (130-450); RED CELL DISTRIBUTION WIDTH 20.0 % (12.0-15.0)
[2025-05-18 05:18] LABS: ALT ALANINE AMINOTRANSFERASE 71.0 IU/L (10-60); AST ASPARTATE AMINOTRANSFERASE 73.0 IU/L (10-42); BUN - BLOOD UREA NITROGEN 36.0 mg/dL (6-20); CARBON DIOXIDE - CO2 29.0 mmol/L (21-32); CREATININE 0.4 mg/dL (0.6-1.3); GFR - MDRD 159.0 (>89)
--- NOTE | 2025-05-18 13:40 | PROVIDER PROGRESS NOTE ---
Subjective Prog Note Date Prog Note Date: 05/18/25 Prog Note Time: 13:38 Subjective Subjective: Doing well this morning. She is not having any pain. Working with PT. Hgb stable. Plt count increasing, ALP increasing (?increased inflammatory response?) Denies fevers chills, chest pain, dyspnea, abdominal pain. Having loose stools. Denies dysuria. Per nutrition, difficulty maintaining hydration with current volume limit through JT. Discussed with surgery, recommend continuing volume limit through JT at this time. Current Medications Current Medications Current Medications: Current Medications Generic Name Dose Route Start Last Admin Trade Name Freq PRN Reason Stop Dose Admin Furosemide 40 mg 05/14/25 09:00 05/18/25 09:00 Furosemide 40 Mg Tablet JT 40 mg DAILY CINDY Administration Hydromorphone HCl 1 mg 05/11/25 23:56 05/16/25 07:46 Hydromorphone 1 Mg/Ml Carpuject IVP 1 mg Q3HR PRN Administration Severe Pain (Level 7-10) Acetaminophen 1,000 mg in 100 mls @ 400 mls/hr 05/14/25 14:54 05/16/25 00:17 Acetaminophen IV Infused Q8HR PRN Infusion Moderate Pain (Level 4-6) Levetiracetam 500 mg 05/13/25 21:00 05/18/25 09:00 Levetiracetam 500 Mg/5 Ml Udc JT 500 mg BID CINDY Administration Lidocaine 1 patch 05/17/25 09:00 05/18/25 09:10 Lidocaine Patch 4% TOP 1 patch DAILY CINDY Administration Metoprolol Tartrate 12.5 mg 05/13/25 21:00 05/18/25 09:00 Metoprolol Tartrate 25 Mg Tablet JT 12.5 mg BID CINDY Administration Ondansetron HCl 4 mg 04/26/25 17:08 Ondansetron Odt 4 Mg Tablet TL Q6HR PRN Nausea / Vomiting Ondansetron HCl 4 mg 04/26/25 17:08 05/12/25 17:01 Ondansetron 4 Mg/2 Ml Vial IVP 4 mg Q6HR PRN Administration Nausea / Vomiting Pantoprazole Sodium 40 mg 04/26/25 21:00 05/18/25 09:00 Pantoprazole 40 Mg Vial IVP 40 mg BID CINDY Administration Polyethylene Glycol 17 gm 04/29/25 10:32 04/29/25 17:05 Polyethylene Glycol 3350 17 Gm Packet JT 17 gm DAILY PRN Administration Bowel Protocol Sodium Chloride 10 ml 04/26/25 17:08 05/18/25 09:01 Sodium Chloride Flush 0.9% 10 Ml Syringe IVP 10 ml 0100,0900,1700 CINDY Administration Sodium Chloride 10 ml 04/26/25 17:08 05/16/25 20:37 Sodium Chloride Flush 0.9% 10 Ml Syringe IVP 10 ml PRN PRN Administration NEEDED PER PROVIDER ORDERS Zinc Oxide 113 gm 04/27/25 04:26 05/11/25 06:54 Cod Liver Oil/Zinc Oxide 113 Gm Tube TOP 1 applic PRN PRN Administration Skin Care Objective Vital Signs/Intake & Output Reviewed Vital Signs: Yes Vital Signs: Vital Signs x48h Temp Pulse Resp BP Pulse Ox 05/18/25 12:22 36.4 C L 60 32 H 127/76 99 05/18/25 09:00 36.6 C 60 35 H 127/63 93 Intake & Output: Intake & Output 05/15/25 05/16/25 05/17/25 05/18/25 23:59 23:59 23:59 23:59 Intake Total 2460 / 2460 1326 / 1326 560 / 560 Output Total 1475 / 1475 1660 / 1660 960 / 960 300 / 300 Balance 985 / 985 -334 / -334 -400 / -400 -280 / -280 Weight (kg) 57.5 kg 52.5 kg 52 kg 52.5 kg Objective Comments/Other: GEN: No acute distress HEENT: NC/AT, normal appearance of external ears and nose. Hearing baseline. Cardiac: Irregular regular rhythm. Rate controlled. No murmurs appreciated. Euvolemic generally on exam. No JVP elevation visible. Pulm: Lungs CTA bilaterally, no cough, no wheezes. No rhonchi or rales. Abdomen: Soft, nondistended. Her tenderness around her incision sites have improved. No erythema surrounding her incisions. No induration. G-tube and J- tube are both patent, G-tube draining to gravity. 1 DEMETRIA drain with scant serosanguineous fluid. Back: Sacral decub ulcer covered in eschar, approx 3.5 cm in longest dimension, no surrounding induration or areas of fluctuance. Extremities: Chronic left-sided deficits and left upper extremity contracture. Neuro: Face symmetric, CN II through XII intact grossly. Chronic and stable left-sided deficits consistent with prior stroke Psych: Normal affect. Mood euthymic. Cooperative with care. Lab Results 05/18/25 04:20 05/18/25 04:20 Other Labs: Lab Results x24hrs 05/18/25 Range/Units 04:20 WBC 8.4 (4.8-10.8) x10^3/uL RBC 3.18 L (4.20-5.40) 10^6/uL Hgb 8.7 L (12.0-16.0) g/dL Hct 28.7 L (37.0-47.0) % MCV 90.3 (81.0-99.0) fL MCH 27.4 (27.0-31.0) pg MCHC 30.3 L (32.0-36.0) g/dL RDW 20.0 H (12.0-15.0) % Plt Count 661 H (130-450) 10^3/uL MPV 8.9 (7.9-10.8) fL Sodium 141 (135-145) mmol/L Potassium 4.3 (3.5-4.5) mmol/L Chloride 107 (101-111) mmol/L Carbon Dioxide 29 (21-32) mmol/L Anion Gap 5.0 L (6-13) BUN 36 H (6-20) mg/dL Creatinine 0.4 L (0.6-1.3) mg/dL Estimated GFR (MDRD) 159 (>89) Glucose 125 H (74-104) mg/dL Calcium 8.0 L (8.5-10.3) mg/dL Total Bilirubin 0.6 (0.2-1.0) mg/dL AST 73 H (10-42) IU/L ALT 71 H (10-60) IU/L Alkaline Phosphatase 505 H (42-121) IU/L Total Protein 5.6 L (6.4-8.9) g/dL Albumin 2.4 L (3.2-5.5) g/dL Globulin 3.2 (2.1-4.2) g/dL Albumin/Globulin Ratio 0.8 L (1.0-2.2) Sepsis Event Note (H) Evaluation Current Stage of Sepsis: Septic shock Possible source of Sepsis: positive GI tract/intra-abdominal Sepsis Criteria Sepsis Criteria: Recorded Heart Rate greater than 90 bpm, WBC count greater than 12,000 or less than 4000, MAP less than 65 mmHg, SBP less than 90 mmHg and Renal: urine output less than 0.5ml/kg/hr for 2 hours or creatinine gr Assessment/Plan Problem List (1) Gastrostomy tube present: (2) Jejunostomy tube present: (3) Complete gastric outlet obstruction: (4) Status post exploratory laparotomy: (5) Perforated chronic gastric ulcer: Impression: S/p pyloric exclusion on day of admission. She had a perforated gastric ulcer. This was too near to the pylorus to adequately close. She had a reperforation on 05/06 with Talha patch oversewn and repeat ex lap with washout. Antibiotics and antifungals discontinued on 05/13. Patient remains clinically stable since then. She is on tube feeds through J-tube and venting to her G-tube. She can take oral intake for comfort, but necessary meds and feeds going through J-tube at this time. - Meeting current caloric needs through feeding, but difficulty maintaining adequate hydration. - Will need ongoing monitoring of BMP and likely come back for intermittent IV hydration (if Na increasing, Cr increasing). o Weekly monitoring after discharge - Per surgery, limiting to no more than 40 to 45 mL/h through her J-tube - Avoiding unnecessary medications through her J-tube as this can clog and cause it to malfunction - Monitor CBC/CMP AM - Discussed with surgery 05/18. Agree with plan. (6) Sacral decubitus ulcer: Impression: Technically unstageable, but eschar not fully covering and appears to be deep stage II. This was present on arrival. It is progressed from a stage I to a stage II. - Continue offloading, to the chair as frequently as possible. - Continue rehab working with PT - Nutrition is working on getting her a higher peptide based tube feed, increase caloric needs - Continue daily dressing changes Qualifiers: Pressure injury stage: stage 2 Qualified Code(s): L89.152 - Pressure ulcer of sacral region, stage 2 (7) Septic shock: Impression: Resolved, remained normotensive. Patient had a mix of septic and hypovolemic shock. She received meropenem on 05/07 after clinical deterioration while on Zosyn. She completed a 7-day course of antibiotics after her reperforation on 05/06. Has been off of antimicrobials and antifungals since 05/13. Has been off of pressors since around 05/11. - Central line removed 05/17. (8) Anemia: Impression: Stable after last transfusion. Discussed with family extensively, she has not tolerated anticoagulation at this point with multiple bleeding episodes, hematuria. Anticoagulation was discontinued altogether on 05/16. This was discussed with family and they are in agreement. She is at risk for recurrent stroke, but the risk-benefit favors discontinuing anticoagulation at this time. Last transfusion received on 05/16. Improved hemoglobin from 6.8->8.8. - Will check CBC one more day and then just monitor VS - Med ready for discharge - SCDs for VTE prophylaxis Qualifiers: Anemia type: unspecified type Qualified Code(s): D64.9 - Anemia, unspecified (9) Urinary retention: Impression: Has not recurred. She is peeing she does not have any clots visible in her urine. Patient began to demonstrate acute urinary retention on 05/16. Had episodes of hematuria over the preceding days. Found to be retaining at that time on bladder scan, with straight cath x 1 on 05/16 Yielding 4 and 50 mL of blood- tinged urine. No clots were visualized. She has been urinating since then reasonably well. Most at risk for clot obstruction. - Continue to monitor with bladder protocol - Strict I/O - If recurrent retention, we will put in a three-way catheter and likely start CBI (10) HFrEF (heart failure with reduced ejection fraction): Impression: Stable. Electrolytes remain normal, creatinine remains normal. Patient is now appearing more euvolemic. She has been retaining fluid throughout this admission, very tenuous fluid status. Multiple boluses of fluid with her episodes of shock. TTE performed this hospitalization with a EF 45 to 50% and associated tricuspid and mitral regurgitation with moderate pulmonary hypertension. - Continue oral Lasix 40 mg qd - Electrolyte monitoring as above (11) Protein calorie malnutrition: Impression: Patient with evidence of protein calorie malnutrition. She came in with subcutaneous fat loss as well as muscle wasting. She has had low caloric intake During the early parts of her hospitalization. When eating, she was not exceeding 50% of her recommended caloric intake. Her tube feeds initially had to be stopped multiple times due to intolerance. She was briefly on TPN. Her nutrition calorie goal 1440 per nutrition. Possibly higher with her sacral ulcer and wound healing goals. - Tube feeds as above - Appreciate assistance of clinical traffic counter Qualifiers: Protein-calorie malnutrition severity: severe Qualified Code(s): E43 - Unspecified severe protein-calorie malnutrition (12) Acute metabolic encephalopathy: Impression: Resolved. Had encephalopathy shortly after 1st surgery. Code stroke was called but no intracranial hemorrhage or new focal deficits noted. She has a history of prior CVA as below. There is extensive encephalomalacia. Teleneurology was consulted, and EEG was recommended if she remained encephalopathic however she cleared. They did recommend continuing her on Keppra 500 mg twice daily Continue Keppra 500 mg twice daily, has been converted to liquid from from IV (13) Cerebrovascular accident (CVA): Impression: With persistent and baseline left-sided deficits and left upper extremity contracture. On Keppra as above. Not on ASA or statin historically. - At risk for recurrent stroke with out being on anticoagulation, but unable to tolerate as above - Monitoring clinically Qualifiers: CVA mechanism: thrombosis Laterality of affected vessel: right P recerebral and cerebral artery: middle cerebral artery Qualified Code(s): I 63.311 - Cerebral infarction due to thrombosis of right middle cerebral artery
--- NOTE | 2025-05-18 19:28 | PROVIDER PROGRESS NOTE ---
Subjective General Admit Date: 04/26/25 Procedure Date: 04/26/25 Post Op Days: 22 Procedure Performed: ExLap, Talha patch, Pyloric Exclusion, Gtube/Jtube Other Other Information/Narrative: 04/26/2025: ExLap, Talha patch with pyloric exclusion, G tube, J tube 05/06/2025: ExLap for leak at talha patch, repair talha patch POD12. Tolerating TF and FWF at adjusted rate for concentrated formulation. Abdomen soft/flat/nontender, having BMs. Denies pain/n/v. Worked with PT today. DEMETRIA in RU is SSF. Wound Assessment Wound/Incisions: positive Healing well (The wound is intact without evidence of herniation or infection.) Drain Type: DEMETRIA (over repair) Drain Output Description: serosang Review of Systems Status of ROS: 10 or more systems reviewed and unremarkable except as noted in history and below Exam Exam Vital Signs: Vital Signs x48h Temp Pulse Resp BP Pulse Ox 05/18/25 16:35 37.0 C 60 34 H 121/60 95 05/18/25 12:22 36.4 C L 60 32 H 127/76 99 General: 69-year old female, appears much older than her stated age, frail and ill but improving HEENT: Normocephalic, atraumatic, Neck: RIJ CVC in place, hemostatic Cardiac: Regular rate and rhythm without rub, gallop, or murmur Chest: No wheezing/distress, normal breathing Abdomen: Soft, nontender, normoactive bowel sounds, gastrostomy tube, jejunostomy tube, and drain in place, midline incision CDI with eleno . Extremities: No gross neurovascular problem, no edema in her hands but some persistent edema in her legs and feet Psychiatric: Alert and oriented to person place and time, asks and answers questions appropriately, mood and affect appropriate Impression/Plan Problem List (1) Gastrostomy tube present: (2) Jejunostomy tube present: (3) Complete gastric outlet obstruction: (4) Status post exploratory laparotomy: (5) Perforated chronic gastric ulcer: (6) Sacral decubitus ulcer: Qualifiers: Pressure injury stage: stage 2 Qualified Code(s): L89.152 - Pressure ulcer of sacral region, stage 2 (7) Septic shock: (8) Anemia: Qualifiers: Anemia type: unspecified type Qualified Code(s): D64.9 - Anemia, unspecified (9) Urinary retention: (10) HFrEF (heart failure with reduced ejection fraction): (11) Protein calorie malnutrition: Qualifiers: Protein-calorie malnutrition severity: severe Qualified Code(s): E43 - Unspecified severe protein-calorie malnutrition (12) Acute metabolic encephalopathy: (13) Cerebrovascular accident (CVA): Qualifiers: CVA mechanism: thrombosis Laterality of affected vessel: right Precerebral and cerebral artery: middle cerebral artery Qualified Code(s): I63.311 - Cerebral infarction due to thrombosis of right middle cerebral artery Plan [id number] admitted with perforated pyloric ulcer. POD # 22, Exploratory laparotomy, oversew/Talha patch perforated pyloric ulcer, gastric exclusion (stapled), gastrostomy tube placement, jejunostomy tube placement (04/26) - Dr. Odell POD #12, Exploratory laparotomy, oversew/Talha patch of ulcer repair site leak, abdominal cavity washout (05/06) - Dr. Lemhan H/o Afib on Eliquis with pacemaker, Echo this admission with EF 45-50%. Hospital course has been notable for tenuous volume status between significant third spacing and edema/anasarca as well as intravascular hypovolemia. On and off pressors during the first week. Transient AMS/delirium after ativan concerning for recurrent CVA, but imaging demonstrated only her old CVA lesion. Significant blood loss from RIJ CVC requiring multiple blood products to correct the resultant coagulopathy/hemolysis. 1) ID -Sepsis resolved. WBC wnl. Antibiotics stopped 4 days ago. Leaving drain in place until tolerating TF at goal, at least. This is the "race car mechanic" as it overlies the repair. DEMETRIA to bulb suction. G tube to dependent drainage. J tube for tube feeds. 2) Heme-Hgb stable today. With every attempt at anticoagulation something bleeds. This issue is a discussion of fci risk reduction versus immediate side effects-complications. This is a complex discussion-decision that should nonetheless be determined. 3) Renal-ARF resolved. 4) FEN-TPN off, Tolerating TF well at this point. TF formula with goal no higher than 45mL/hr. Pills (even crushed ones) should NOT go through a J tube (this is pertinent for Eliquis administration - see #2). Check nutrition parameters weekly. 5) VTEP -Afib and h/o CVA- SCDs only. Also see #2 for issues with bleeding 6) Pulmonary-improved 7) Activity-the number one issue facing this patient currently is her extreme state of weakness-debility. Aggressive PT and OT is required. Patient was ambulatory at home with a walker. 8) Wound-remove remaining eleno in 2-3 days. nursing home plan: repeat EGD in 3-6m to assess opening of pyloric exclusion and or ulcer regression. Repeat biopsies of mass/h pylori (is pyloric exclusion is open). Consider PET for confirmation of no malignancy. If pylorus opens on its own, will be able to resume PO feeds and DC G/J. If pylorus does not reopen, goal to reoperate for transition to G-J anastomosis once she has rehab'd well. Ulcer biopsies benign/CEA normal; no gastric biopsies for H pylori but stool h pylori negative. Ro Odell DO, FACS General Surgeon, [place]
--- NOTE | 2025-05-19 08:32 | PROVIDER PROGRESS NOTE ---
Subjective Prog Note Date Prog Note Date: 05/19/25 Prog Note Time: 08:31 Subjective Subjective: Patient continues to be medically stable. No acute changes. Pending labs for this morning. Denies any pain, still getting IV APAP. Will transition to liquid APAP through her J-tube. Otherwise not receiving any other pain medications. Vital signs are stable. Normotensive, pulse in the 60s. She is feeling well. She is eager to get on with her recovery. Discussed with surgery this morning. Current Medications Current Medications Current Medications: Current Medications Generic Name Dose Route Start Last Admin Trade Name Freq PRN Reason Stop Dose Admin Furosemide 40 mg 05/14/25 09:00 05/18/25 09:00 Furosemide 40 Mg Tablet JT 40 mg DAILY CINDY Administration Hydromorphone HCl 1 mg 05/11/25 23:56 05/16/25 07:46 Hydromorphone 1 Mg/Ml Carpuject IVP 1 mg Q3HR PRN Administration Severe Pain (Level 7-10) Acetaminophen 1,000 mg in 100 mls @ 400 mls/hr 05/14/25 14:54 05/19/25 05:17 Acetaminophen IV 400 mls/hr Q8HR PRN Administration Moderate Pain (Level 4-6) Levetiracetam 500 mg 05/13/25 21:00 05/18/25 20:56 Levetiracetam 500 Mg/5 Ml Udc JT 500 mg BID CINDY Administration Lidocaine 1 patch 05/17/25 09:00 05/18/25 09:10 Lidocaine Patch 4% TOP 1 patch DAILY CINDY Administration Metoprolol Tartrate 12.5 mg 05/13/25 21:00 05/18/25 20:56 Metoprolol Tartrate 25 Mg Tablet JT 12.5 mg BID CINDY Administration Ondansetron HCl 4 mg 04/26/25 17:08 Ondansetron Odt 4 Mg Tablet TL Q6HR PRN Nausea / Vomiting Ondansetron HCl 4 mg 04/26/25 17:08 05/12/25 17:01 Ondansetron 4 Mg/2 Ml Vial IVP 4 mg Q6HR PRN Administration Nausea / Vomiting Pantoprazole Sodium 40 mg 04/26/25 21:00 05/18/25 20:56 Pantoprazole 40 Mg Vial IVP 40 mg BID CINDY Administration Polyethylene Glycol 17 gm 04/29/25 10:32 04/29/25 17:05 Polyethylene Glycol 3350 17 Gm Packet JT 17 gm DAILY PRN Administration Bowel Protocol Sodium Chloride 10 ml 04/26/25 17:08 05/18/25 21:09 Sodium Chloride Flush 0.9% 10 Ml Syringe IVP 10 ml 0100,0900,1700 CINDY Administration Sodium Chloride 10 ml 04/26/25 17:08 05/16/25 20:37 Sodium Chloride Flush 0.9% 10 Ml Syringe IVP 10 ml PRN PRN Administration NEEDED PER PROVIDER ORDERS Zinc Oxide 113 gm 04/27/25 04:26 05/11/25 06:54 Cod Liver Oil/Zinc Oxide 113 Gm Tube TOP 1 applic PRN PRN Administration Skin Care Objective Vital Signs/Intake & Output Reviewed Vital Signs: Yes Vital Signs: Vital Signs x48h Temp Pulse Resp BP Pulse Ox 05/19/25 04:30 36.6 C 60 28 H 117/67 98 05/19/25 01:00 36.6 C 60 30 H 107/63 98 Intake & Output: Intake & Output 05/16/25 05/17/25 05/18/25 05/19/25 23:59 23:59 23:59 23:59 Intake Total 1326 / 1326 560 / 560 560 / 560 Output Total 1660 / 1660 960 / 960 700 / 700 Balance -334 / -334 -400 / -400 -140 / -140 Weight (kg) 52.5 kg 52 kg 52.5 kg 48.5 kg Objective Comments/Other: GEN: No acute distress HEENT: NC/AT, normal appearance of external ears and nose. Hearing baseline. Cardiac: Irregular regular rhythm. Rate controlled. No murmurs appreciated. Euvolemic generally on exam. No JVP elevation visible. Pulm: Lungs CTA bilaterally, no cough, no wheezes. No rhonchi or rales. Abdomen: Soft, nondistended. Her tenderness around her incision sites have improved. No erythema surrounding her incisions. No induration. G-tube and J- tube are both patent, G-tube draining to gravity. 1 DEMETRIA drain with scant serosanguineous fluid. Back: Sacral decub ulcer covered in eschar, approx 3.5 cm in longest dimension, no surrounding induration or areas of fluctuance. Extremities: Chronic left-sided deficits and left upper extremity contracture. Neuro: Face symmetric, CN II through XII intact grossly. Chronic and stable left-sided deficits consistent with prior stroke Psych: Normal affect. Mood euthymic. Cooperative with care. Lab Results 05/19/25 08:46 05/19/25 08:46 Other Labs: Lab Results x24hrs 05/18/25 Range/Units 04:20 WBC 8.4 (4.8-10.8) x10^3/uL RBC 3.18 L (4.20-5.40) 10^6/uL Hgb 8.7 L (12.0-16.0) g/dL Hct 28.7 L (37.0-47.0) % MCV 90.3 (81.0-99.0) fL MCH 27.4 (27.0-31.0) pg MCHC 30.3 L (32.0-36.0) g/dL RDW 20.0 H (12.0-15.0) % Plt Count 661 H (130-450) 10^3/uL MPV 8.9 (7.9-10.8) fL Sodium 141 (135-145) mmol/L Potassium 4.3 (3.5-4.5) mmol/L Chloride 107 (101-111) mmol/L Carbon Dioxide 29 (21-32) mmol/L Anion Gap 5.0 L (6-13) BUN 36 H (6-20) mg/dL Creatinine 0.4 L (0.6-1.3) mg/dL Estimated GFR (MDRD) 159 (>89) Glucose 125 H (74-104) mg/dL Calcium 8.0 L (8.5-10.3) mg/dL Total Bilirubin 0.6 (0.2-1.0) mg/dL AST 73 H (10-42) IU/L ALT 71 H (10-60) IU/L Alkaline Phosphatase 505 H (42-121) IU/L Total Protein 5.6 L (6.4-8.9) g/dL Albumin 2.4 L (3.2-5.5) g/dL Globulin 3.2 (2.1-4.2) g/dL Albumin/Globulin Ratio 0.8 L (1.0-2.2) Sepsis Event Note (H) Evaluation Current Stage of Sepsis: Septic shock Possible source of Sepsis: positive GI tract/intra-abdominal Sepsis Criteria Sepsis Criteria: Recorded Heart Rate greater than 90 bpm, WBC count greater than 12,000 or less than 4000, MAP less than 65 mmHg, SBP less than 90 mmHg and Renal: urine output less than 0.5ml/kg/hr for 2 hours or creatinine gr Assessment/Plan Problem List (1) Gastrostomy tube present: (2) Jejunostomy tube present: (3) Complete gastric outlet obstruction: (4) Status post exploratory laparotomy: (5) Perforated chronic gastric ulcer: Impression: S/p pyloric exclusion on day of admission. She had a perforated gastric ulcer. This was too near to the pylorus to adequately close. She had a reperforation on 05/06 with Talha patch oversewn and repeat ex lap with washout. Antibiotics and antifungals discontinued on 05/13. Patient remains clinically stable since then. She is on tube feeds through J-tube and venting to her G-tube. She can take oral intake for comfort, but necessary meds and feeds going through J-tube at this time. - Meeting current caloric needs through feeding, but difficulty maintaining adequate hydration. - Transition to monitoring BMP weekly, next on 05/26 - If she is exhibiting signs of dehydration (hyponatremia, creatinine increase, tachycardia) will give one-time IV hydration dose - Per surgery, limiting to no more than 45 mL/h through her J-tube - Avoiding unnecessary medications through her J-tube as this can clog and cause it to malfunction - Monitor CBC/CMP AM - Discussed with surgery 05/18. Agree with plan. (6) Sacral decubitus ulcer: Impression: Technically unstageable, but eschar not fully covering and appears to be deep stage II. This was present on arrival. It is progressed from a stage I to a stage II. - Continue offloading, to the chair as frequently as possible. - Continue rehab working with PT - Nutrition as above - Continue daily dressing changes, This will need to be continued at SNF. Qualifiers: Pressure injury stage: stage 2 Qualified Code(s): L89.152 - Pressure ulcer of sacral region, stage 2 (7) Septic shock: Impression: Resolved, remained normotensive. Patient had a mix of septic and hypovolemic shock. She received meropenem on 05/07 after clinical deterioration while on Zosyn. She completed a 7-day course of antibiotics after her reperforation on 05/06. Has been off of antimicrobials and antifungals since 05/13. Has been off of pressors since around 05/11. - Central line removed 05/17. (8) Anemia: Impression: Stable after last transfusion. Hgb has risen from 8.3-8.9 over the last 2 days. Discussed with family extensively, she has not tolerated anticoagulation at this point with multiple bleeding episodes, hematuria. Anticoagulation was discontinued altogether on 05/16. This was discussed with family and they are in agreement. She is at risk for recurrent stroke, but the risk-benefit favors discontinuing anticoagulation at this time. Last transfusion received on 05/16. Improved hemoglobin from 6.8->8.8. - Med ready for discharge - SCDs for VTE prophylaxis Qualifiers: Anemia type: unspecified type Qualified Code(s): D64.9 - Anemia, unspecified (9) Urinary retention: Impression: Has not recurred. She is peeing she does not have any clots visible in her urine. Patient began to demonstrate acute urinary retention on 05/16. Had episodes of hematuria over the preceding days. Found to be retaining at that time on bladder scan, with straight cath x 1 on 05/16 Yielding 4 and 50 mL of blood- tinged urine. No clots were visualized. She has been urinating since then reasonably well. Most at risk for clot obstruction. - Continue to monitor with bladder protocol - Strict I/O - If recurrent retention, we will put in a three-way catheter and likely start CBI (10) HFrEF (heart failure with reduced ejection fraction): Impression: Stable. Electrolytes remain normal, creatinine remains normal. Patient is now appearing more euvolemic. She has been retaining fluid throughout this admission, very tenuous fluid status. Multiple boluses of fluid with her episodes of shock. TTE performed this hospitalization with a EF 45 to 50% and associated tricuspid and mitral regurgitation with moderate pulmonary hypertension. - Continue oral Lasix 40 mg qd indefinitely - Electrolyte monitoring as above (11) Protein calorie malnutrition: Impression: Patient with evidence of protein calorie malnutrition. She came in with subcutaneous fat loss as well as muscle wasting. She has had low caloric intake During the early parts of her hospitalization. When eating, she was not exceeding 50% of her recommended caloric intake. Her tube feeds initially had to be stopped multiple times due to intolerance. She was briefly on TPN. Her nutrition calorie goal 1440 per nutrition. Possibly higher with her sacral ulcer and wound healing goals. - Tube feeds as above - Appreciate assistance of clinical production potter Qualifiers: Protein-calorie malnutrition severity: severe Qualified Code(s): E43 - Unspecified severe protein-calorie malnutrition (12) Acute metabolic encephalopathy: Impression: Resolved. Had encephalopathy shortly after 1st surgery. Code stroke was called but no intracranial hemorrhage or new focal deficits noted. She has a history of prior CVA as below. There is extensive encephalomalacia. Teleneurology was consulted, and EEG was recommended if she remained encephalopathic however she cleared. They did recommend continuing her on Keppra 500 mg twice daily Continue Keppra 500 mg twice daily, has been converted to liquid from from IV (13) Cerebrovascular accident (CVA): Impression: With persistent and baseline left-sided deficits and left upper extremity contracture. On Keppra as above. Not on ASA or statin historically. - At risk for recurrent stroke with out being on anticoagulation, but unable to tolerate as above - Monitoring clinically Qualifiers: CVA mechanism: thrombosis Laterality of affected vessel: right P recerebral and cerebral artery: middle cerebral artery Qualified Code(s): I 63.311 - Cerebral infarction due to thrombosis of right middle cerebral artery
[2025-05-19 08:52] LABS: HCT - HEMATOCRIT 30.4 % (37.0-47.0); HGB - HEMOGLOBIN 8.9 g/dL (12.0-16.0); MEAN PLATELET VOLUME 8.6 fL (7.9-10.8); PLT - PLATELET COUNT 648.0 10^3/uL (130-450); RED CELL DISTRIBUTION WIDTH 20.2 % (12.0-15.0)
[2025-05-19 09:10] LABS: BUN - BLOOD UREA NITROGEN 38.0 mg/dL (6-20); CARBON DIOXIDE - CO2 30.0 mmol/L (21-32); CREATININE 0.5 mg/dL (0.6-1.3); GFR - MDRD 123.0 (>89)
--- NOTE | 2025-05-20 08:25 | PROVIDER PROGRESS NOTE ---
Subjective Prog Note Date Prog Note Date: 05/20/25 Prog Note Time: 08:23 Subjective Subjective: Danielle looks well this morning. She has remained afebrile. Her vital signs remained stable. DEMETRIA drain with scant sanguineous output. She has been having increased stool output in the setting of her tube feeds. Consideration was made for adding any bannana flakes, but I think this would precipitate J-tube malfunction. Will discuss with general surgery later. I explained to the patient, that loose stools may just be inevitable until she is put back together. Reports abdominal pain improved denies any fevers or chills. He is eager to mobilize today. She is wanting to eat soup. Discussed her case with general surgery today, agree that she is ready for discharge. DEMETRIA drain was removed today. [place] removed today. Current Medications Current Medications Current Medications: Current Medications Generic Name Dose Route Start Last Admin Trade Name Freq PRN Reason Stop Dose Admin Acetaminophen 480 mg 05/19/25 08:32 Acetaminophen 160 Mg/5 Ml Susp Udc JT Q6HR PRN Mild Pain or Fever > 38C Furosemide 40 mg 05/14/25 09:00 05/19/25 09:06 Furosemide 40 Mg Tablet JT 40 mg DAILY CINDY Administration Hydromorphone HCl 1 mg 05/11/25 23:56 05/16/25 07:46 Hydromorphone 1 Mg/Ml Carpuject IVP 1 mg Q3HR PRN Administration Severe Pain (Level 7-10) Levetiracetam 500 mg 05/13/25 21:00 05/19/25 20:22 Levetiracetam 500 Mg/5 Ml Udc JT 500 mg BID CINDY Administration Lidocaine 1 patch 05/17/25 09:00 05/19/25 09:07 Lidocaine Patch 4% TOP 1 patch DAILY CINDY Administration Metoprolol Tartrate 12.5 mg 05/13/25 21:00 05/19/25 20:22 Metoprolol Tartrate 25 Mg Tablet JT 12.5 mg BID CINDY Administration Ondansetron HCl 4 mg 04/26/25 17:08 Ondansetron Odt 4 Mg Tablet TL Q6HR PRN Nausea / Vomiting Ondansetron HCl 4 mg 04/26/25 17:08 05/12/25 17:01 Ondansetron 4 Mg/2 Ml Vial IVP 4 mg Q6HR PRN Administration Nausea / Vomiting Pantoprazole Sodium 40 mg 04/26/25 21:00 05/19/25 20:22 Pantoprazole 40 Mg Vial IVP 40 mg BID CINDY Administration Polyethylene Glycol 17 gm 04/29/25 10:32 04/29/25 17:05 Polyethylene Glycol 3350 17 Gm Packet JT 17 gm DAILY PRN Administration Bowel Protocol Sodium Chloride 10 ml 04/26/25 17:08 05/20/25 06:39 Sodium Chloride Flush 0.9% 10 Ml Syringe IVP 10 ml 0100,0900,1700 CINDY Administration Sodium Chloride 10 ml 04/26/25 17:08 05/19/25 09:08 Sodium Chloride Flush 0.9% 10 Ml Syringe IVP 10 ml PRN PRN Administration NEEDED PER PROVIDER ORDERS Zinc Oxide 113 gm 04/27/25 04:26 05/19/25 20:24 Cod Liver Oil/Zinc Oxide 113 Gm Tube TOP 1 applic PRN PRN Administration Skin Care Objective Vital Signs/Intake & Output Reviewed Vital Signs: Yes Vital Signs: Vital Signs x48h Temp Pulse Resp BP Pulse Ox 05/20/25 08:19 36.9 C 61 16 134/63 H 96 05/20/25 05:12 36.4 C L 62 20 135/64 H 97 Intake & Output: Intake & Output 05/17/25 05/18/25 05/19/25 05/20/25 23:59 23:59 23:59 23:59 Intake Total 560 / 560 560 / 560 1768 / 1768 1573 / 1573 Output Total 960 / 960 700 / 700 600 / 600 Balance -400 / -400 -140 / -140 1168 / 1168 1563 / 1563 Weight (kg) 52 kg 52.5 kg 48.5 kg 50.5 kg Objective Comments/Other: GEN: No acute distress HEENT: NC/AT, normal appearance of external ears and nose. Hearing baseline. Cardiac: Irregular regular rhythm. Rate controlled. No murmurs appreciated. Euvolemic generally on exam. No JVP elevation visible. Pulm: Lungs CTA bilaterally, no cough, no wheezes. No rhonchi or rales. Abdomen: Soft, nondistended. Her tenderness around her incision sites have improved. No erythema surrounding her incisions. No induration. G-tube and J- tube are both patent, G-tube draining to gravity. 1 DEMETRIA drain with scant serosanguineous fluid. Back: Sacral decub ulcer covered in eschar, approx 3.5 cm in longest dimension, no surrounding induration or areas of fluctuance. Extremities: Chronic left-sided deficits and left upper extremity contracture. Neuro: Face symmetric, CN II through XII intact grossly. Chronic and stable left-sided deficits consistent with prior stroke Psych: Normal affect. Mood euthymic. Cooperative with care. Lab Results 05/19/25 08:46 05/19/25 08:46 Other Labs: Lab Results x24hrs 05/19/25 Range/Units 08:46 WBC 7.3 (4.8-10.8) x10^3/uL RBC 3.31 L (4.20-5.40) 10^6/uL Hgb 8.9 L (12.0-16.0) g/dL Hct 30.4 L (37.0-47.0) % MCV 91.8 (81.0-99.0) fL MCH 26.9 L (27.0-31.0) pg MCHC 29.3 L (32.0-36.0) g/dL RDW 20.2 H (12.0-15.0) % Plt Count 648 H (130-450) 10^3/uL MPV 8.6 (7.9-10.8) fL Sodium 143 (135-145) mmol/L Potassium 4.5 (3.5-4.5) mmol/L Chloride 109 (101-111) mmol/L Carbon Dioxide 30 (21-32) mmol/L Anion Gap 4.0 L (6-13) BUN 38 H (6-20) mg/dL Creatinine 0.5 L (0.6-1.3) mg/dL Estimated GFR (MDRD) 123 (>89) Glucose 132 H (74-104) mg/dL Calcium 8.1 L (8.5-10.3) mg/dL Sepsis Event Note (H) Evaluation Current Stage of Sepsis: Septic shock Possible source of Sepsis: positive GI tract/intra-abdominal Sepsis Criteria Sepsis Criteria: Recorded Heart Rate greater than 90 bpm, WBC count greater than 12,000 or less than 4000, MAP less than 65 mmHg, SBP less than 90 mmHg and Renal: urine output less than 0.5ml/kg/hr for 2 hours or creatinine gr Assessment/Plan Problem List (1) Gastrostomy tube present: (2) Jejunostomy tube present: (3) Complete gastric outlet obstruction: (4) Status post exploratory laparotomy: (5) Perforated chronic gastric ulcer: Impression: S/p pyloric exclusion on day of admission. She had a perforated gastric ulcer. This was too near to the pylorus to adequately close. She had a reperforation on 05/06 with Talha patch oversewn and repeat ex lap with washout. Antibiotics and antifungals discontinued on 05/13. Patient remains clinically stable since then. She is on tube feeds through J-tube and venting to her G-tube. She can take oral intake for comfort, but necessary meds and feeds going through J-tube at this time. - Meeting current caloric needs through feeding, but difficulty maintaining adequate hydration. - She is expressing a desire to take oral intake, will add diet order so she can get full oral, though these will drain through her G-tube. - Monitoring BMP weekly, next on 05/26 - If she is exhibiting signs of dehydration (hyponatremia, creatinine increase, tachycardia) will give one-time IV hydration dose - Per surgery, limiting to no more than 45 mL/h through her J-tube - Avoiding unnecessary medications through her J-tube as this can clog and cause it to malfunction - DEMETRIA drain removed by surgery 05/20. - Med ready to discharge to SNF. Discussed with case management. (6) Sacral decubitus ulcer: Impression: Technically unstageable, but eschar not fully covering and appears to be deep stage II. This was present on arrival. It is progressed from a stage I to a stage II. - Continue offloading, to the chair as frequently as possible. - Continue rehab working with PT - Nutrition as above - Continue daily dressing changes, This will need to be continued at SNF. Qualifiers: Pressure injury stage: stage 2 Qualified Code(s): L89.152 - Pressure ulcer of sacral region, stage 2 (7) Septic shock: Impression: Resolved, remained normotensive. Patient had a mix of septic and hypovolemic shock. She received meropenem on 05/07 after clinical deterioration while on Zosyn. She completed a 7-day course of antibiotics after her reperforation on 05/06. Has been off of antimicrobials and antifungals since 05/13. Has been off of pressors since around 05/11. - Central line removed 05/17. (8) Anemia: Impression: Resolved. No further signs of blood loss. Hemoglobins remained stable around 9. Discussed with family extensively, she has not tolerated anticoagulation at this point with multiple bleeding episodes, hematuria. Anticoagulation was discontinued altogether on 05/16. This was discussed with family and they are in agreement. She is at risk for recurrent stroke, but the risk-benefit favors discontinuing anticoagulation at this time. Last transfusion received on 05/16. Improved hemoglobin from 6.8->8.8. - Med ready for discharge - SCDs for VTE prophylaxis Qualifiers: Anemia type: unspecified type Qualified Code(s): D64.9 - Anemia, unspecified (9) Urinary retention: Impression: Resolved. She is peeing she does not have any clots visible in her urine. Retention and hematuria has not recurred. Patient began to demonstrate acute urinary retention on 05/16. Had episodes of hematuria over the preceding days. Found to be retaining at that time on bladder scan, with straight cath x 1 on 05/16 Yielding 450 mL of blood-tinged urine. No clots were visualized. She has been urinating since then reasonably well. Most at risk for clot obstruction. - Continue to monitor with bladder protocol - Strict I/O - If recurrent retention, we will put in a three-way catheter and likely start CBI (10) HFrEF (heart failure with reduced ejection fraction): Impression: Stable. Electrolytes remain normal, creatinine remains normal. Patient is now appearing more euvolemic. She has been retaining fluid throughout this admission, very tenuous fluid status. Multiple boluses of fluid with her episodes of shock. TTE performed this hospitalization with a EF 45 to 50% and associated tricuspid and mitral regurgitation with moderate pulmonary hypertension. - Continue oral Lasix 40 mg qd indefinitely - Electrolyte monitoring as above (11) Protein calorie malnutrition: Impression: Patient with evidence of protein calorie malnutrition. She came in with subcutaneous fat loss as well as muscle wasting. She has had low caloric intake During the early parts of her hospitalization. When eating, she was not exceeding 50% of her recommended caloric intake. Her tube feeds initially had to be stopped multiple times due to intolerance. She was briefly on TPN. Her nutrition calorie goal 1440 per nutrition. Possibly higher with her sacral ulcer and wound healing goals. - Tube feeds as above - Appreciate assistance of clinical miniature set constructor Qualifiers: Protein-calorie malnutrition severity: severe Qualified Code(s): E43 - Unspecified severe protein-calorie malnutrition (12) Acute metabolic encephalopathy: Impression: Resolved. Had encephalopathy shortly after 1st surgery. Code stroke was called but no intracranial hemorrhage or new focal deficits noted. She has a history of prior CVA as below. There is extensive encephalomalacia. Teleneurology was consulted, and EEG was recommended if she remained encephalopathic however she cleared. They did recommend continuing her on Keppra 500 mg twice daily Continue Keppra 500 mg twice daily, has been converted to liquid from from IV (13) Cerebrovascular accident (CVA): Impression: With persistent and baseline left-sided deficits and left upper extremity contracture. On Keppra as above. Not on ASA or statin historically. - At risk for recurrent stroke with out being on anticoagulation, but unable to tolerate as above - Monitoring clinically Qualifiers: CVA mechanism: thrombosis Laterality of affected vessel: right P recerebral and cerebral artery: middle cerebral artery Qualified Code(s): I 63.311 - Cerebral infarction due to thrombosis of right middle cerebral artery
--- NOTE | 2025-05-20 13:35 | PROVIDER PROGRESS NOTE ---
Subjective General Admit Date: 04/26/25 Procedure Date: 04/26/25 Post Op Days: 24 Procedure Performed: ExLap, Talha patch, Pyloric Exclusion, Gtube/Jtube Other Other Information/Narrative: POD14. Tolerating TF and FWF at adjusted rate for concentrated formulation. Abdomen soft/flat/nontender, having BMs. Denies pain/n/v. DEMETRIA in RUQ has scant SSF (10cc/24hr). Wound Assessment Wound/Incisions: positive Healing well (The wound is intact without evidence of herniation or infection.) Drain Type: DEMETRIA (over repair) Drain Output Description: serosang Approximate mls Output: 10 Review of Systems Status of ROS: 10 or more systems reviewed and unremarkable except as noted in history and below Exam Exam Vital Signs: Vital Signs x48h Temp Pulse Pulse Resp BP BP Pulse Ox 05/20/25 13:00 36.7 C 61 16 125/61 92 05/20/25 09:37 61 134/63 H 05/20/25 08:19 36.9 C 61 16 134/63 H 96 General: 69-year old female, appears much older than her stated age, frail and ill but improving HEENT: Normocephalic, atraumatic, Neck: RIJ CVC removed, hemostatic Cardiac: Regular rate and rhythm without rub, gallop, or murmur Chest: No wheezing/distress, normal breathing Abdomen: Soft, nontender, normoactive bowel sounds, gastrostomy tube, jejunostomy tube, and drain in place, midline incision CDI with shandra . Extremities: No gross neurovascular problem, no edema in her hands but some persistent edema in her legs and feet Psychiatric: Alert and oriented to person place and time, asks and answers questions appropriately, mood and affect appropriate HENMT hemostatic RIJ CVC Respiratory crackles Impression/Plan Problem List (1) Gastrostomy tube present: (2) Jejunostomy tube present: (3) Complete gastric outlet obstruction: (4) Status post exploratory laparotomy: (5) Perforated chronic gastric ulcer: (6) Sacral decubitus ulcer: Qualifiers: Pressure injury stage: stage 2 Qualified Code(s): L89.152 - Pressure ulcer of sacral region, stage 2 (7) Septic shock: (8) Anemia: Qualifiers: Anemia type: unspecified type Qualified Code(s): D64.9 - Anemia, uns pecified (9) Urinary retention: (10) HFrEF (heart failure with reduced ejection fraction): (11) Protein calorie malnutrition: Qualifiers: Protein-calorie malnutrition severity: severe Qualified Code(s): E43 - Unspecified severe protein-calorie malnutrition (12) Acute metabolic encephalopathy: (13) Cerebrovascular accident (CVA): Qualifiers: CVA mechanism: thrombosis Laterality of affected vessel: right Precerebral and cerebral artery: middle cerebral artery Qualified Code(s): I63.311 - Cerebral infarction due to thrombosis of right middle cerebral artery Plan 69yoF admitted with perforated pyloric ulcer. POD # 24, Exploratory laparotomy, oversew/Talha patch perforated pyloric ulcer, gastric exclusion (stapled), gastrostomy tube placement, jejunostomy tube placement (04/26) - Dr. Odell POD #14, Exploratory laparotomy, oversew/Talha patch of ulcer repair site leak, abdominal cavity washout (05/06) - Dr. Lehman H/o Afib on Eliquis with pacemaker, Echo this admission with EF 45-50%. Hospital course has been notable for tenuous volume status between significant third spacing and edema/anasarca as well as intravascular hypovolemia. On and off pressors during the first week. Transient AMS/delirium after ativan concerning for recurrent CVA, but imaging demonstrated only her old CVA lesion. Significant blood loss from RIJ CVC requiring multiple blood products to correct the resultant coagulopathy/hemolysis. Recurrent bleeding issues with anticoagulation or chemoppx for DVT. 1) ID - Sepsis resolved. Completed antibiotics. - DEMETRIA drain removed today (05/20); mepilex placed over drain site. - G tube to dependent drainage (OK for sip of clears or fulls for comfort - will drain via G tube). - J tube for tube feeds. 2) Heme - Hgb stable today. Not resuming anticoagulation given recurrent bleeding issues this admission. DVT ppx with SCDs only. 3) Renal - ARF resolved. Need to monitor for adequate hydration given volume limitation of FWF via J tube. 4) FEN - Tolerating TF at goal rate well at this point. - TF formula no higher than 45mL/hr. - Pills (even crushed ones) should NOT go through a J tube - Check nutrition parameters weekly. 5) VTEP - SCDs only. 6) Pulmonary - improved 7) Activity - Aggressive PT and OT is required. Pending SNF placement. Patient was ambulatory at home with a walker. 8) Wound - Shandra removed today; wound reinforced with Steristrip. Scant old blood draining from 5mm opening at inferior aspect of wound - change geri SANCHEZN. [facility] plan: repeat EGD in ~3mo to assess opening of pyloric exclusion and or ulcer regression. Repeat biopsies of mass/h pylori (is pyloric exclusion is open). Consider PET for confirmation of no malignancy. If pylorus opens on its own, will be able to resume PO feeds and DC G/J. If pylorus does not reopen, goal to reoperate for transition to G-J anastomosis once she has rehab'd well. Ulcer biopsies benign/CEA normal; no gastric biopsies for H pylori but stool h pylori negative. Ro Odell DO, FACS General Surgeon, [facility]
--- NOTE | 2025-05-21 08:49 | PROVIDER PROGRESS NOTE ---
Subjective Prog Note Date Prog Note Date: 05/21/25 Prog Note Time: 08:49 Subjective Subjective: Continues to feel well this morning. She is not having fevers. Denies any pain. Specifically no abdominal pain. She had her drains and eleno removed by surgery yesterday. Tolerated this well. She tolerated some oral intake yesterday, venting through the G-tube. Continues to be medically stable to discharge to rehab. Appreciate case management. Current Medications Current Medications Current Medications: Current Medications Generic Name Dose Route Start Last Admin Trade Name Freq PRN Reason Stop Dose Admin Acetaminophen 480 mg 05/19/25 08:32 Acetaminophen 160 Mg/5 Ml Susp Udc JT Q6HR PRN Mild Pain or Fever > 38C Furosemide 40 mg 05/14/25 09:00 05/20/25 09:38 Furosemide 40 Mg Tablet JT 40 mg DAILY CINDY Administration Levetiracetam 500 mg 05/13/25 21:00 05/20/25 20:55 Levetiracetam 500 Mg/5 Ml Udc JT 500 mg BID CINDY Administration Lidocaine 1 patch 05/17/25 09:00 05/20/25 10:05 Lidocaine Patch 4% TOP Not Given DAILY CINDY Metoprolol Tartrate 12.5 mg 05/13/25 21:00 05/20/25 20:53 Metoprolol Tartrate 25 Mg Tablet JT 12.5 mg BID CINDY Administration Ondansetron HCl 4 mg 04/26/25 17:08 Ondansetron Odt 4 Mg Tablet TL Q6HR PRN Nausea / Vomiting Ondansetron HCl 4 mg 04/26/25 17:08 05/12/25 17:01 Ondansetron 4 Mg/2 Ml Vial IVP 4 mg Q6HR PRN Administration Nausea / Vomiting Pantoprazole Sodium 40 mg 04/26/25 21:00 05/20/25 21:10 Pantoprazole 40 Mg Vial IVP 40 mg BID CINDY Administration Polyethylene Glycol 17 gm 04/29/25 10:32 04/29/25 17:05 Polyethylene Glycol 3350 17 Gm Packet JT 17 gm DAILY PRN Administration Bowel Protocol Sodium Chloride 10 ml 04/26/25 17:08 05/21/25 00:16 Sodium Chloride Flush 0.9% 10 Ml Syringe IVP 10 ml 0100,0900,1700 CINDY Administration Sodium Chloride 10 ml 04/26/25 17:08 05/19/25 09:08 Sodium Chloride Flush 0.9% 10 Ml Syringe IVP 10 ml PRN PRN Administration NEEDED PER PROVIDER ORDERS Zinc Oxide 113 gm 04/27/25 04:26 05/19/25 20:24 Cod Liver Oil/Zinc Oxide 113 Gm Tube TOP 1 applic PRN PRN Administration Skin Care Objective Vital Signs/Intake & Output Reviewed Vital Signs: Yes Vital Signs: Vital Signs x48h Temp Pulse Resp BP Pulse Ox 05/21/25 07:46 36.4 C L 61 24 127/62 97 05/21/25 03:21 36.9 C 62 22 117/49 L 98 Intake & Output: Intake & Output 05/18/25 05/19/25 05/20/25 05/21/25 23:59 23:59 23:59 23:59 Intake Total 560 / 560 1768 / 1768 2575 / 2575 Output Total 700 / 700 600 / 600 310 / 310 Balance -140 / -140 1168 / 1168 2265 / 2265 Weight (kg) 52.5 kg 48.5 kg 50.5 kg 48 kg Objective Comments/Other: GEN: No acute distress HEENT: NC/AT, normal appearance of external ears and nose. Hearing baseline. Cardiac: Irregular regular rhythm. Rate controlled. No murmurs appreciated. Euvolemic generally on exam. No JVP elevation visible. Pulm: Lungs CTA bilaterally, no cough, no wheezes. No rhonchi or rales. Abdomen: Soft, nondistended. Nontender. No erythema. No induration. G-tube and J-tube are both patent, G-tube draining to gravity, ample output. Extremities: Chronic left-sided deficits and left upper extremity contracture. Neuro: Face symmetric, CN II through XII intact grossly. Chronic and stable left-sided deficits with contracture consistent with prior stroke Psych: Normal affect. Mood euthymic. Cooperative with care. Lab Results 05/19/25 08:46 05/19/25 08:46 Other Labs: Lab Results x24hrs 05/19/25 Range/Units 08:46 WBC 7.3 (4.8-10.8) x10^3/uL RBC 3.31 L (4.20-5.40) 10^6/uL Hgb 8.9 L (12.0-16.0) g/dL Hct 30.4 L (37.0-47.0) % MCV 91.8 (81.0-99.0) fL MCH 26.9 L (27.0-31.0) pg MCHC 29.3 L (32.0-36.0) g/dL RDW 20.2 H (12.0-15.0) % Plt Count 648 H (130-450) 10^3/uL MPV 8.6 (7.9-10.8) fL Sodium 143 (135-145) mmol/L Potassium 4.5 (3.5-4.5) mmol/L Chloride 109 (101-111) mmol/L Carbon Dioxide 30 (21-32) mmol/L Anion Gap 4.0 L (6-13) BUN 38 H (6-20) mg/dL Creatinine 0.5 L (0.6-1.3) mg/dL Estimated GFR (MDRD) 123 (>89) Glucose 132 H (74-104) mg/dL Calcium 8.1 L (8.5-10.3) mg/dL Sepsis Event Note (H) Evaluation Current Stage of Sepsis: Septic shock Possible source of Sepsis: positive GI tract/intra-abdominal Sepsis Criteria Sepsis Criteria: Recorded Heart Rate greater than 90 bpm, WBC count greater than 12,000 or less than 4000, MAP less than 65 mmHg, SBP less than 90 mmHg and Renal: urine output less than 0.5ml/kg/hr for 2 hours or creatinine gr Assessment/Plan Problem List (1) Gastrostomy tube present: (2) Jejunostomy tube present: (3) Complete gastric outlet obstruction: (4) Status post exploratory laparotomy: (5) Perforated chronic gastric ulcer: Impression: S/p pyloric exclusion on day of admission. She had a perforated gastric ulcer. This was too near to the pylorus to adequately close. She had a reperforation on 05/06 with Talha patch oversewn and repeat ex lap with washout. Antibiotics and antifungals discontinued on 05/13. Patient remains clinically stable since then. She is on tube feeds through J-tube and venting to her G-tube. She can take oral intake for comfort, but necessary meds and feeds going through J-tube at this time. [place] and DEMETRIA drain removed by surgery 05/20. - Meeting current caloric needs through feeding - Can continue oral diet for comfort. Will vent through G-tube. Recommend small volumes. - Monitoring BMP weekly, next on 05/26 - Technically at risk for not meeting her fluid needs based on limited enteral intake, though has been holding steady so far. - If she is exhibiting signs of dehydration (hyponatremia, creatinine increase, tachycardia) will give one-time IV hydration dose - Per surgery, limiting to no more than 45 mL/h through her J-tube - Avoiding unnecessary medications through her J-tube as this can clog and cause it to malfunction - Med ready to discharge to SNF. Discussed with case management. (6) Sacral decubitus ulcer: Impression: Technically unstageable, but eschar not fully covering and appears to be deep stage II. This was present on arrival. It is progressed from a stage I to a stage II. - Continue offloading, to the chair as frequently as possible. - Continue rehab working with PT - Nutrition as above - Continue daily dressing changes, This will need to be continued at SNF. Qualifiers: Pressure injury stage: stage 2 Qualified Code(s): L89.152 - Pressure ulcer of sacral region, stage 2 (7) Septic shock: Impression: Resolved, remained normotensive. Patient had a mix of septic and hypovolemic shock. She received meropenem on 05/07 after clinical deterioration while on Zosyn. She completed a 7-day course of antibiotics after her reperforation on 05/06. Has been off of antimicrobials and antifungals since 05/13. Has been off of pressors since around 05/11. Central line removed 05/17. (8) Anemia: Impression: Resolved. No further signs of blood loss. Hemoglobins remained stable around 9. Discussed with family extensively, she has not tolerated anticoagulation at this point with multiple bleeding episodes, hematuria. Anticoagulation was discontinued altogether on 05/16. This was discussed with family and they are in agreement. She is at risk for recurrent stroke, but the risk-benefit favors discontinuing anticoagulation at this time. Last transfusion received on 05/16. Improved hemoglobin from 6.8->8.8. Qualifiers: Anemia type: unspecified type Qualified Code(s): D64.9 - Anemia, unspecified (9) Urinary retention: Impression: Resolved. She is peeing she does not have any clots visible in her urine. Retention and hematuria has not recurred. Patient began to demonstrate acute urinary retention on 05/16. Had episodes of hematuria over the preceding days. Found to be retaining at that time on bladder scan, with straight cath x 1 on 05/16 Yielding 450 mL of blood-tinged urine. No clots were visualized. She has been urinating since then reasonably well. Most at risk for clot obstruction. Continue to monitor with bladder protocol (10) HFrEF (heart failure with reduced ejection fraction): Impression: Stable. Electrolytes remain normal, creatinine remains normal. Patient is now appearing more euvolemic. She has been retaining fluid throughout this admission, very tenuous fluid status. Multiple boluses of fluid with her episodes of shock. TTE performed this hospitalization with a EF 45 to 50% and associated tricuspid and mitral regurgitation with moderate pulmonary hypertension. - Continue oral Lasix 40 mg qd indefinitely (11) Protein calorie malnutrition: Impression: Patient with evidence of protein calorie malnutrition. She came in with subcutaneous fat loss as well as muscle wasting. She has had low caloric intake During the early parts of her hospitalization. When eating, she was not exceeding 50% of her recommended caloric intake. Her tube feeds initially had to be stopped multiple times due to intolerance. She was briefly on TPN. Her nutrition calorie goal 1440 per nutrition. Possibly higher with her sacral ulcer and wound healing goals. - Tube feeds as above - Appreciate assistance of clinical military lawyer Qualifiers: Protein-calorie malnutrition severity: severe Qualified Code(s): E43 - Unspecified severe protein-calorie malnutrition (12) Acute metabolic encephalopathy: Impression: Resolved. Had encephalopathy shortly after 1st surgery. Code stroke was called but no intracranial hemorrhage or new focal deficits noted. She has a history of prior CVA as below. There is extensive encephalomalacia. Teleneurology was consulted, and EEG was recommended if she remained encephalopathic however she cleared. They did recommend continuing her on Keppra 500 mg twice daily Continue Keppra 500 mg twice daily, has been converted to liquid from from IV (13) Cerebrovascular accident (CVA): Impression: With persistent and baseline left-sided deficits and left upper extremity contracture. On Keppra as above. Etiology of stroke likely embolic in the setting of her A-fib. Not on statin historically. At risk for recurrent stroke with out being on anticoagulation, but unable to tolerate Anticoagulation as above. Discussed earlier this admission whether she needs any muscle relaxers for chronic contracture. She declined. Says she is comfortable. PT as above. - Monitoring clinically Qualifiers: CVA mechanism: thrombosis Laterality of affected vessel: right P recerebral and cerebral artery: middle cerebral artery Qualified Code(s): I 63.311 - Cerebral infarction due to thrombosis of right middle cerebral artery
--- NOTE | 2025-05-21 14:55 | PROVIDER PROGRESS NOTE ---
Subjective General Admit Date: 04/26/25 Procedure Date: 04/26/25 Post Op Days: 25 Procedure Performed: ExLap, Talha patch, Pyloric Exclusion, Gtube/Jtube Other Other Information/Narrative: POD15. Tolerating TF and FWF at adjusted rate for concentrated formulation. Abdomen soft/flat/nontender, having BMs. Denies pain/n/v. Up in chair this AM. Review of Systems Status of ROS: 10 or more systems reviewed and unremarkable except as noted in history and below Exam Exam Vital Signs: Vital Signs x48h Temp Pulse Pulse Resp BP BP Pulse Ox 05/21/25 13:57 36.5 C 61 22 124/68 97 05/21/25 09:04 61 127/62 05/21/25 07:46 36.4 C L 61 24 127/62 97 General: 69-year old female, appears much older than her stated age, frail and ill but improving HEENT: Normocephalic, atraumatic, Cardiac: Regular rate and rhythm without rub, gallop, or murmur Chest: No wheezing/distress, normal breathing Abdomen: Soft, nontender, normoactive bowel sounds, gastrostomy tube with light gastric drainage, jejunostomy tube, midline incision with steris, scant old blood draining from inferior most aspect of wound. Extremities: No gross neurovascular problem, no edema Psychiatric: Alert and oriented to person place and time, asks and answers questions appropriately, mood and affect appropriate HENMT hemostatic RIJ CVC Respiratory crackles Impression/Plan Problem List (1) Gastrostomy tube present: (2) Jejunostomy tube present: (3) Complete gastric outlet obstruction: (4) Status post exploratory laparotomy: (5) Perforated chronic gastric ulcer: (6) Protein calorie malnutrition: Qualifiers: Protein-calorie malnutrition severity: severe Qualified Code(s): E43 - Unspecified severe protein-calorie malnutrition Plan 69yoF admitted with perforated pyloric ulcer. POD # 25, Exploratory laparotomy, oversew/Talha patch perforated pyloric ulcer, gastric exclusion (stapled), gastrostomy tube placement, jejunostomy tube placement (04/26) - Dr. Odell POD #15, Exploratory laparotomy, oversew/Talha patch of ulcer repair site leak, abdominal cavity washout (05/06) - Dr. Lehman H/o Afib on Eliquis with pacemaker, Echo this admission with EF 45-50%. Hospital course has been notable for tenuous volume status between significant third spacing and edema/anasarca as well as intravascular hypovolemia. On and off pressors during the first week. Transient AMS/delirium after ativan concerning for recurrent CVA, but imaging demonstrated only her old CVA lesion. Significant blood loss from RIJ CVC requiring multiple blood products to correct the resultant coagulopathy/hemolysis. Recurrent bleeding issues with anticoagulation or chemoppx for DVT. 1) ID - Sepsis resolved. Completed antibiotics. - EDMETRIA drain removed (05/20); mepilex placed over drain site. - G tube to dependent drainage (OK for sip of clears or fulls for comfort - will drain via G tube). - J tube for tube feeds. 2) Heme - Hgb stable today. Not resuming anticoagulation given recurrent bleeding issues this admission. DVT ppx with SCDs only. 3) Renal - ARF resolved. Need to monitor for adequate hydration given volume limitation of FWF via J tube. 4) FEN - Tolerating TF at goal rate well at this point. - TF formula no higher than 45mL/hr. - Pills (even crushed ones) should NOT go through a J tube - Check nutrition parameters weekly. 5) VTEP - SCDs only. 6) Pulmonary - improved 7) Activity - Aggressive PT and OT is required. Pending SNF placement. Patient was ambulatory at home with a walker. 8) Wound - eleno out/reinforced with steristrips. Scant old blood draining from 5mm opening at inferior aspect of wound - change guaze PRN. longterm plan: repeat EGD in ~3mo to assess opening of pyloric exclusion and or ulcer regression. Repeat biopsies of mass/h pylori (is pyloric exclusion is open). Consider PET for confirmation of no malignancy. If pylorus opens on its own, will be able to resume PO feeds and DC G/J. If pylorus does not reopen, goal to reoperate for transition to G-J anastomosis once she has rehab'd well. Ulcer biopsies benign/CEA normal; no gastric biopsies for H pylori but stool h pylori negative. Ro Odell DO, FACS General Surgeon, [facility]
--- NOTE | 2025-05-22 07:10 | PROVIDER PROGRESS NOTE ---
Subjective General Admit Date: 04/26/25 Procedure Date: 04/26/25 Post Op Days: 26 Procedure Performed: ExLap, Talha patch, Pyloric Exclusion, Gtube/Jtube Other Other Information/Narrative: Patient denies pain, nausea. TF at goal. No acute events overnight. Patient excited to get up to chair and requesting to go home. Wound Assessment Wound/Incisions: positive Healing well (The wound is intact without evidence of herniation or infection.) Drain Type: DEMETRIA (over repair) Drain Output Description: serosang Approximate mls Output: 10 Review of Systems Status of ROS: 10 or more systems reviewed and unremarkable except as noted in history and below Exam Exam Vital Signs: Vital Signs x48h Temp Pulse Pulse Resp BP BP Pulse Ox 05/22/25 09:31 60 126/68 05/22/25 09:00 97.5 F L 61 32 H 126/68 96 05/22/25 03:30 97.5 F L 60 20 116/66 97 Gen: alert and oriented, NAD CV: RRR Pulm: non labored, on RA Abd: soft, non distended with dressing in place. incision is c/d/i. g tube with scant serous output. J tube to TF. G tube with 290mL fluid out in last 24 hours. Ext: LUE with 1/4 strength, RUQ 4/4 strength. trace edema in BLE Impression/Plan Problem List (1) Gastrostomy tube present: (2) Jejunostomy tube present: (3) Complete gastric outlet obstruction: (4) Status post exploratory laparotomy: (5) Perforated chronic gastric ulcer: (6) Protein calorie malnutrition: Qualifiers: Protein-calorie malnutrition severity: severe Qualified Code(s): E43 - Unspecified severe protein-calorie malnutrition Plan 69y/o F admitted with perforated pyloric ulcer. POD # 26, Exploratory laparotomy, oversew/Talha patch perforated pyloric ulcer, gastric exclusion (stapled), gastrostomy tube placement, jejunostomy tube placement (04/26) - Dr. Odell POD #16, Exploratory laparotomy, oversew/Talha patch of ulcer repair site leak, abdominal cavity washout (05/06) - Dr. Lehman H/o Afib on Eliquis with pacemaker, Echo this admission with EF 45-50%. Hospital course has been notable for tenuous volume status between significant third spacing and edema/anasarca as well as intravascular hypovolemia. On and off pressors during the first week. Transient AMS/delirium after ativan concerning for recurrent CVA, but imaging demonstrated only her old CVA lesion. Significant blood loss from RIJ CVC requiring multiple blood products to correct the resultant coagulopathy/hemolysis. Recurrent bleeding issues with anticoagulation or chemoppx for DVT. 1) ID - Sepsis resolved. Completed antibiotics. - DEMETRIA drain removed (05/20); mepilex placed over drain site. - G tube to dependent drainage (OK for sip of clears or fulls for comfort - will drain via G tube). - J tube for tube feeds, NO PILLS, NO CRUSHED PILLS. 2) Heme - Hgb stable. Not resuming anticoagulation given recurrent bleeding issues this admission (shared decision making with patient, family) DVT ppx with SCDs only. 3) Renal - ARF resolved. Need to monitor for adequate hydration given volume limitation of FWF via J tube; patient has not required IVF for last week. 4) FEN - Tolerating TF at goal rate well at this point. - TF formula no higher than 45mL/hr. - Pills (even crushed ones) should NOT go through a J tube - Check nutrition parameters weekly. 5) VTEP - SCDs only. 6) Pulmonary - improved, now on RA 7) Activity - Aggressive PT and OT is required. Pending SNF placement. Patient was ambulatory at home with a walker prior to admission. 8) Wound - eleno out/reinforced with steristrips. Scant old blood draining from 5mm opening at inferior aspect of wound - change guaze PRN. FPC plan: repeat EGD with Dr. Odell in ~3mo to assess opening of pyloric exclusion and or ulcer regression. Repeat biopsies of mass/h pylori (if pyloric exclusion is open). Consider PET for confirmation of no malignancy. If pylorus opens on its own, will be able to resume PO feeds and DC G/J. If pylorus does not reopen, goal to reoperate for transition to G-J anastomosis once she has rehabilitated well. Ulcer biopsies benign/CEA normal; no gastric biopsies for H pylori but stool h pylori negative. Will transition primary team to medicine for discharge to SNF. Surgery will continue to follow while patient is inpatient. Discussed plan of care with patient and primary medicine team (Dr. Jordin Jane, Cira Toney PA-C).
--- NOTE | 2025-05-22 09:44 | PROVIDER PROGRESS NOTE ---
Subjective Prog Note Date Prog Note Date: 05/22/25 Prog Note Time: 09:43 Subjective Subjective: No acute events overnight. She has not received any pain medications for 24 hours now. She is not even receiving Tylenol. She denies any pain in her abdomen. She is resting comfortably on my exam. Remains medically stable for discharge to [facility]. No big changes today. Continues to work with PT, but mobilize in the room as she is able, up to the chair for meals. Current Medications Current Medications Current Medications: Current Medications Generic Name Dose Route Start Last Admin Trade Name Freq PRN Reason Stop Dose Admin Acetaminophen 480 mg 05/19/25 08:32 Acetaminophen 160 Mg/5 Ml Susp Udc JT Q6HR PRN Mild Pain or Fever > 38C Furosemide 40 mg 05/14/25 09:00 05/22/25 09:32 Furosemide 40 Mg Tablet JT 40 mg DAILY CINDY Administration Levetiracetam 500 mg 05/13/25 21:00 05/22/25 09:31 Levetiracetam 500 Mg/5 Ml Udc JT 500 mg BID CINDY Administration Lidocaine 1 patch 05/17/25 09:00 05/22/25 09:33 Lidocaine Patch 4% TOP 1 patch DAILY ICNDY Administration Metoprolol Tartrate 12.5 mg 05/13/25 21:00 05/22/25 09:31 Metoprolol Tartrate 25 Mg Tablet JT 12.5 mg BID CINDY Administration Ondansetron HCl 4 mg 04/26/25 17:08 Ondansetron Odt 4 Mg Tablet TL Q6HR PRN Nausea / Vomiting Ondansetron HCl 4 mg 04/26/25 17:08 05/12/25 17:01 Ondansetron 4 Mg/2 Ml Vial IVP 4 mg Q6HR PRN Administration Nausea / Vomiting Pantoprazole Sodium 40 mg 04/26/25 21:00 05/22/25 09:31 Pantoprazole 40 Mg Vial IVP 40 mg BID CINDY Administration Polyethylene Glycol 17 gm 04/29/25 10:32 04/29/25 17:05 Polyethylene Glycol 3350 17 Gm Packet JT 17 gm DAILY PRN Administration Bowel Protocol Sodium Chloride 10 ml 04/26/25 17:08 05/22/25 09:33 Sodium Chloride Flush 0.9% 10 Ml Syringe IVP 10 ml 0100,0900,1700 CINDY Administration Sodium Chloride 10 ml 04/26/25 17:08 05/19/25 09:08 Sodium Chloride Flush 0.9% 10 Ml Syringe IVP 10 ml PRN PRN Administration NEEDED PER PROVIDER ORDERS Zinc Oxide 113 gm 04/27/25 04:26 05/22/25 09:33 Cod Liver Oil/Zinc Oxide 113 Gm Tube TOP 1 applic PRN PRN Administration Skin Care Objective Vital Signs/Intake & Output Vital Signs: Vital Signs x48h Temp Pulse Pulse Resp BP BP Pulse Ox 05/22/25 09:31 60 126/68 05/22/25 03:30 36.4 C L 60 20 116/66 97 Intake & Output: Intake & Output 05/19/25 05/20/25 05/21/25 05/22/25 23:59 23:59 23:59 23:59 Intake Total 1768 / 1768 2575 / 2575 745 / 745 388 / 388 Output Total 600 / 600 310 / 310 950 / 950 40 / 40 Balance 1168 / 1168 2265 / 2265 -205 / -205 348 / 348 Weight (kg) 48.5 kg 50.5 kg 48 kg 49 kg Lab Results 05/19/25 08:46 05/19/25 08:46 Sepsis Event Note (H) Evaluation Current Stage of Sepsis: Septic shock Possible source of Sepsis: positive GI tract/intra-abdominal Sepsis Criteria Sepsis Criteria: Recorded Heart Rate greater than 90 bpm, WBC count greater than 12,000 or less than 4000, MAP less than 65 mmHg, SBP less than 90 mmHg and Renal: urine output less than 0.5ml/kg/hr for 2 hours or creatinine gr Assessment/Plan Problem List (1) Gastrostomy tube present: (2) Jejunostomy tube present: (3) Complete gastric outlet obstruction: (4) Status post exploratory laparotomy: (5) Perforated chronic gastric ulcer: (6) Protein calorie malnutrition: Qualifiers: Protein-calorie malnutrition severity: severe Qualified Code(s): E43 - Unspecified severe protein-calorie malnutrition
--- NOTE | 2025-05-22 12:46 | PROVIDER PROGRESS NOTE ---
<Statement entered by Santos Jane, DO - 05/22/25 16:17> I was present with the MIESHA student on the hospitalist service. I personally verified the history of present illness and performed the physical examination and medical decision making. I have verified the students documentation for this encounter and agree with the plan of care below. In addition 69-year-old female who is here with perforated viscus, s/p pyloric exclusion. Doing well, recovering after several unfortunate complications. She is now stable and pending dispo to SNF for further rehab. Pending insurance authorization to [facility]. No big changes today. Up to the chair for an hour and a half. Doing well. Eating for comfort, vents to G-tube Patient expressed an eagerness to be home. I reinforced with her today, that if she faces further complications she is always welcome to transition to a more palliative approach. She would be comfortable and could be home, but would certainly from this episode. She stated good understanding. Family is supportive and at bedside. - Plan to discharge to SNF, pending insurance authorization - Continue tube feeds, appreciate nutrition - Continue to mobilize while she is here - Surgery has put her follow-up information in the discharge tab Subjective Prog Note Date Prog Note Date: 05/22/25 Prog Note Time: 13:01 Subjective Pt reports feeling: Improved Subjective: She reports feeling more energetic today. She denies any pain in her abdomen. She is resting comfortably on my exam. She has been sitting up in the chair more often to eat. Sitting for 1.5 hour. ROS: Denies fever, chills, fatigue. Denies abdominal pain. Denies back pain. Denies changes in bowel habits. Remains medically stable for discharge to [facility]. No big changes today. Current Medications Current Medications Current Medications: Current Medications Generic Name Dose Route Start Last Admin Trade Name Freq PRN Reason Stop Dose Admin Acetaminophen 480 mg 05/19/25 08:32 Acetaminophen 160 Mg/5 Ml Susp Udc JT Q6HR PRN Mild Pain or Fever > 38C Furosemide 40 mg 05/14/25 09:00 05/22/25 09:32 Furosemide 40 Mg Tablet JT 40 mg DAILY CINDY Administration Levetiracetam 500 mg 05/13/25 21:00 05/22/25 09:31 Levetiracetam 500 Mg/5 Ml Udc JT 500 mg BID CINDY Administration Lidocaine 1 patch 05/17/25 09:00 05/22/25 09:33 Lidocaine Patch 4% TOP 1 patch DAILY CINDY Administration Metoprolol Tartrate 12.5 mg 05/13/25 21:00 05/22/25 09:31 Metoprolol Tartrate 25 Mg Tablet JT 12.5 mg BID CINDY Administration Ondansetron HCl 4 mg 04/26/25 17:08 Ondansetron Odt 4 Mg Tablet TL Q6HR PRN Nausea / Vomiting Ondansetron HCl 4 mg 04/26/25 17:08 05/12/25 17:01 Ondansetron 4 Mg/2 Ml Vial IVP 4 mg Q6HR PRN Administration Nausea / Vomiting Pantoprazole Sodium 40 mg 04/26/25 21:00 05/22/25 09:31 Pantoprazole 40 Mg Vial IVP 40 mg BID CINDY Administration Polyethylene Glycol 17 gm 04/29/25 10:32 04/29/25 17:05 Polyethylene Glycol 3350 17 Gm Packet JT 17 gm DAILY PRN Administration Bowel Protocol Sodium Chloride 10 ml 04/26/25 17:08 05/22/25 09:33 Sodium Chloride Flush 0.9% 10 Ml Syringe IVP 10 ml 0100,0900,1700 CINDY Administration Sodium Chloride 10 ml 04/26/25 17:08 05/19/25 09:08 Sodium Chloride Flush 0.9% 10 Ml Syringe IVP 10 ml PRN PRN Administration NEEDED PER PROVIDER ORDERS Zinc Oxide 113 gm 04/27/25 04:26 05/22/25 09:33 Cod Liver Oil/Zinc Oxide 113 Gm Tube TOP 1 applic PRN PRN Administration Skin Care Objective Vital Signs/Intake & Output Reviewed Vital Signs: Yes Vital Signs: Vital Signs x48h Temp Pulse Pulse Resp BP BP Pulse Ox 05/22/25 09:31 60 126/68 05/22/25 09:00 36.4 C L 61 32 H 126/68 96 Intake & Output: Intake & Output 05/19/25 05/20/25 05/21/25 05/22/25 23:59 23:59 23:59 23:59 Intake Total 1768 / 1768 2575 / 2575 745 / 745 388 / 388 Output Total 600 / 600 310 / 310 950 / 950 40 / 40 Balance 1168 / 1168 2265 / 2265 -205 / -205 348 / 348 Weight (kg) 48.5 kg 50.5 kg 48 kg 49 kg Objective General Appearance: positive No acute distress and Alert Cardiovascular: positive Regular rate & rhythm, No murmur and No gallop; negative Friction rub Abdomen: positive No distention; negative Other (Scar visible on abdomen, healing well. Gastrostomy and jejunostomy tubes present. No erythema, swelling, or exudates present around tubes.) Skin: positive Color nml and No rash Neurologic/Psychiatric: positive Oriented x3 Lab Results 05/19/25 08:46 05/19/25 08:46 Sepsis Event Note (H) Evaluation Current Stage of Sepsis: Resolved Possible source of Sepsis: positive GI tract/intra-abdominal Sepsis Criteria Sepsis Criteria: Recorded Heart Rate greater than 90 bpm, WBC count greater than 12,000 or less than 4000, MAP less than 65 mmHg, SBP less than 90 mmHg and Renal: urine output less than 0.5ml/kg/hr for 2 hours or creatinine gr Assessment/Plan Problem List (1) Gastrostomy tube present: (2) Jejunostomy tube present: (3) Complete gastric outlet obstruction: (4) Status post exploratory laparotomy: (5) Perforated chronic gastric ulcer: Impression: S/p pyloric exclusion on day of admission. She had a perforated gastric ulcer. This was too near to the pylorus to adequately close. She had a reperforation on 05/06 with Talha patch oversewn and repeat ex lap with washout. Antibiotics and antifungals discontinued on 05/13. Patient remains clinically stable since then. She is on tube feeds through J-tube and venting to her G-tube. She can take oral intake for comfort, but necessary meds and feeds going through J-tube at this time. Shandra and DEMETRIA drain removed by surgery 05/20. - Meeting current caloric needs through feeding - Can continue oral diet for comfort. Will vent through G-tube. Recommend small volumes. - Monitoring BMP weekly, next on 05/26 - Technically at risk for not meeting her fluid needs based on limited enteral intake, though has been holding steady so far. - If she is exhibiting signs of dehydration (hyponatremia, creatinine increase, tachycardia) will give one-time IV hydration dose - Per surgery, limiting to no more than 45 mL/h through her J-tube - Avoiding unnecessary medications through her J-tube as this can clog and cause it to malfunction - Med ready to discharge to SNF. Discussed with case management. (6) Protein calorie malnutrition: Impression: Patient with evidence of protein calorie malnutrition. She came in with subcutaneous fat loss as well as muscle wasting. She has had low caloric intake During the early parts of her hospitalization. When eating, she was not exceeding 50% of her recommended caloric intake. Her tube feeds initially had to be stopped multiple times due to intolerance. She was briefly on TPN. Her nutrition calorie goal 1440 per nutrition. Possibly higher with her sacral ulcer and wound healing goals. - Tube feeds as above - Appreciate assistance of clinical application security architect Qualifiers: Protein-calorie malnutrition severity: severe Qualified Code(s): E43 - Unspecified severe protein-calorie malnutrition (7) Sacral decubitus ulcer: Impression: Technically unstageable, but eschar not fully covering and appears to be deep stage II. This was present on arrival. It is progressed from a stage I to a stage II. - Continue offloading, to the chair as frequently as possible. - Continue rehab working with PT - Nutrition as above - Continue daily dressing changes, This will need to be continued at SNF. Qualifiers: Pressure injury stage: stage 2 Qualified Code(s): L89.152 - Pressure ulcer of sacral region, stage 2 (8) Septic shock: Impression: Resolved, remained normotensive. Patient had a mix of septic and hypovolemic shock. She received meropenem on 05/07 after clinical deterioration while on Zosyn. She completed a 7-day course of antibiotics after her reperforation on 05/06. Has been off of antimicrobials and antifungals since 05/13. Has been off of pressors since around 05/11. Central line removed 05/17. (9) Anemia: Impression: Resolved. No further signs of blood loss. Hemoglobins remained stable around 9. Discussed with family extensively, she has not tolerated anticoagulation at this point with multiple bleeding episodes, hematuria. Anticoagulation was discontinued altogether on 05/16. This was discussed with family and they are in agreement. She is at risk for recurrent stroke, but the risk-benefit favors discontinuing anticoagulation at this time. Last transfusion received on 05/16. Improved hemoglobin from 6.8->8.8. Qualifiers: Anemia type: unspecified type Qualified Code(s): D64.9 - Anemia, unspecified (10) Urinary retention: Impression: Resolved. She is peeing she does not have any clots visible in her urine. Retention and hematuria has not recurred. Patient began to demonstrate acute urinary retention on 05/16. Had episodes of hematuria over the preceding days. Found to be retaining at that time on bladder scan, with straight cath x 1 on 05/16 Yielding 450 mL of blood-tinged urine. No clots were visualized. She has been urinating since then reasonably well. Most at risk for clot obstruction. Continue to monitor with bladder protocol (11) HFrEF (heart failure with reduced ejection fraction): Impression: Stable. Electrolytes remain normal, creatinine remains normal. Patient is now appearing more euvolemic. She has been retaining fluid throughout this admission, very tenuous fluid status. Multiple boluses of fluid with her episodes of shock. TTE performed this hospitalization with a EF 45 to 50% and associated tricuspid and mitral regurgitation with moderate pulmonary hypertension. - Continue oral Lasix 40 mg qd indefinitely (12) Acute metabolic encephalopathy: Impression: Resolved. Had encephalopathy shortly after 1st surgery. Code stroke was called but no intracranial hemorrhage or new focal deficits noted. She has a history of prior CVA as below. There is extensive encephalomalacia. Teleneurology was consulted, and EEG was recommended if she remained encephalopathic however she cleared. They did recommend continuing her on Keppra 500 mg twice daily Continue Keppra 500 mg twice daily, has been converted to liquid from from IV (13) Cerebrovascular accident (CVA): Impression: With persistent and baseline left-sided deficits and left upper extremity contracture. On Keppra as above. Etiology of stroke likely embolic in the setting of her A-fib. Not on statin historically. At risk for recurrent stroke with out being on anticoagulation, but unable to tolerate Anticoagulation as above. Discussed earlier this admission whether she needs any muscle relaxers for chronic contracture. She declined. Says she is comfortable. PT as above. - Monitoring clinically Qualifiers: CVA mechanism: thrombosis Laterality of affected vessel: right P recerebral and cerebral artery: middle cerebral artery Qualified Code(s): I 63.311 - Cerebral infarction due to thrombosis of right middle cerebral artery
[2025-05-22] MEDS: ACETAMINOPHEN 160 MG/5 ML SUSP UDC JT PRN (21:39)
[2025-05-23] MEDS: HYDROmorphone 0.5 MG/0.5 ML SYRINGE IVP ONE (00:28)
[2025-05-23] MEDS: HYDROmorphone 0.5 MG/0.5 ML SYRINGE IVP PRN (08:25)
--- NOTE | 2025-05-23 10:47 | PROVIDER PROGRESS NOTE ---
Subjective General Admit Date: 04/26/25 Procedure Date: 04/26/25 Post Op Days: 27 Procedure Performed: ExLap, Talha patch, Pyloric Exclusion, Gtube/Jtube Other Other Information/Narrative: Patient complaining of some new abdominal pain located centrally. Wound Assessment Wound/Incisions: positive Healing well (The wound is intact without evidence of herniation or infection.) Drain Output Description: There still is some sanguinous drainage at the inferior aspect of the wound Review of Systems I did not perform an extensive review of systems with the patient today however she states she has some new abdominal pain but this is not associated with nausea or vomiting. Exam Exam Vital Signs: Vital Signs x48h Temp Pulse Resp BP Pulse Ox 05/23/25 08:45 36.7 C 61 35 H 127/58 L 95 05/23/25 04:46 36.7 C 61 16 138/70 H 98 General: 69-year old female, appears much older than her stated age, improved, I happened upon the patient while the nurses were doing the dressing changes and got an excellent look at her abdomen, wounds, and drain sites HEENT: Normocephalic, atraumatic, extraocular movement intact, mucous membranes pink and moist, sclera anicteric and not injected Neck: Supple without pain on palpation, mass or bruit Cardiac: Regular rate and rhythm without rub, gallop, or murmur Chest: Clear to auscultation bilaterally, but I only listened anterior laterally Abdomen: Soft, nontender, slightly decreased bowel sounds, gastrostomy tube, jejunostomy tube, midline incision closed with the inferior aspect ever so slightly open with minimal sanguinous drainage, essentially no drainage in the G-tube. No pain with palpation but exquisite tenderness on percussion. Genitourinary: Deferred Rectal: Deferred Extremities: No gross neurovascular problem Gait: I did not evaluated as the patient has been in bed but it is clear that she is markedly deconditioned Psychiatric: Alert and oriented to person place and time, asks and answers questions appropriately, mood and affect appropriate Of note neither of her sons was present during my exam and visit with the patient. Again 2 nurses in the room. ABX Reporting Has patient been on IV antibiotics over the past 48 hours?: No Impression/Plan Problem List (1) Gastrostomy tube present: (2) Jejunostomy tube present: (3) Complete gastric outlet obstruction: (4) Status post exploratory laparotomy: (5) Perforated chronic gastric ulcer: (6) Protein calorie malnutrition: Qualifiers: Protein-calorie malnutrition severity: severe Qualified Code(s): E43 - Unspecified severe protein-calorie malnutrition (7) Sacral decubitus ulcer: Qualifiers: Pressure injury stage: stage 2 Qualified Code(s): L89.152 - Pressure ulcer of sacral region, stage 2 (8) Septic shock: (9) Anemia: Qualifiers: Anemia type: unspecified type Qualified Code(s): D64.9 - Anemia, unspecified (10) Urinary retention: (11) HFrEF (heart failure with reduced ejection fraction): (12) Acute metabolic encephalopathy: (13) Cerebrovascular accident (CVA): Qualifiers: CVA mechanism: thrombosis Laterality of affected vessel: right Precerebral and cerebral artery: middle cerebral artery Qualified Code(s): I63.311 - Cerebral infarction due to thrombosis of right middle cerebral artery Plan 69y/o F admitted with perforated pyloric ulcer. POD # 27, Exploratory laparotomy, oversew/Talha patch perforated pyloric ulcer, gastric exclusion (stapled), gastrostomy tube placement, jejunostomy tube placement (04/26) - Dr. Odell POD #17, Exploratory laparotomy, oversew/Talha patch of ulcer repair site leak, abdominal cavity washout (05/06) - Dr. Lehman H/o Afib on Eliquis with pacemaker, Echo this admission with EF 45-50%. Hospital course has been notable for tenuous volume status between significant third spacing and edema/anasarca as well as intravascular hypovolemia. On and off pressors during the first week. Transient AMS/delirium after ativan concerning for recurrent CVA, but imaging demonstrated only her old CVA lesion. Significant blood loss from RIJ CVC requiring multiple blood products to correct the resultant coagulopathy/hemolysis. Recurrent bleeding issues with anticoagulation or chemoppx for DVT. 1) ID - Sepsis resolved. Completed antibiotics but with new abdominal pain and no CBC will order today. Optimistically, no tachycardia and no fever. - DEMETRIA drain removed (05/20); mepilex placed over drain site. - G tube to dependent drainage (OK for sip of clears or fulls for comfort - will drain via G tube). - J tube for tube feeds, NO PILLS, NO CRUSHED PILLS. 2) Heme - Hgb stable. Not resuming anticoagulation given recurrent bleeding issues this admission (shared decision making with patient, family) DVT ppx with SCDs only. 3) Renal - ARF resolved. Need to monitor for adequate hydration given volume limitation of FWF via J tube; patient has not required IVF for last week. 4) FEN - Tolerating TF at goal rate well at this point. - TF formula no higher than 45mL/hr. - Pills (even crushed ones) should NOT go through a J tube - Check nutrition parameters weekly. 5) VTEP - SCDs only. 6) Pulmonary - improved, now on RA 7) Activity - Aggressive PT and OT is required. Pending SNF placement. Patient was ambulatory at home with a walker prior to admission. 8) Wound - eleno out/reinforced with steristrips. Scant old blood draining from 5mm opening at inferior aspect of wound - change gauze PRN. General surgery will continue to follow closely. CPT 22960
--- NOTE | 2025-05-23 12:23 | PROVIDER PROGRESS NOTE ---
Subjective Subjective Subjective: Today, patient has some abdominal pain. She describes as a 5 out of 10 sharp pain that started yesterday. She denies any nausea or vomiting or fevers or chills. Discussed with general surgery, abdomen/pelvis CT was ordered. Awaiting authorization from [facility]. Current Medications Current Medications Current Medications: Current Medications Generic Name Dose Route Start Last Admin Trade Name Freq PRN Reason Stop Dose Admin Acetaminophen 480 mg 05/19/25 08:32 05/23/25 06:28 Acetaminophen 160 Mg/5 Ml Susp Udc JT 480 mg Q6HR PRN Administration Mild Pain or Fever > 38C Furosemide 40 mg 05/14/25 09:00 05/23/25 10:08 Furosemide 40 Mg Tablet JT 40 mg DAILY CINDY Administration Hydromorphone HCl 0.5 mg 05/23/25 02:32 05/23/25 08:25 Hydromorphone 0.5 Mg/0.5 Ml Syringe IVP 0.5 mg Q2H PRN Administration Severe Pain (Level 7-10) Levetiracetam 500 mg 05/13/25 21:00 05/23/25 10:09 Levetiracetam 500 Mg/5 Ml Udc JT 500 mg BID CINDY Administration Lidocaine 1 patch 05/17/25 09:00 05/23/25 10:09 Lidocaine Patch 4% TOP Not Given DAILY CINDY Metoprolol Tartrate 12.5 mg 05/13/25 21:00 05/23/25 10:10 Metoprolol Tartrate 25 Mg Tablet JT 12.5 mg BID CINDY Administration Ondansetron HCl 4 mg 04/26/25 17:08 Ondansetron Odt 4 Mg Tablet TL Q6HR PRN Nausea / Vomiting Ondansetron HCl 4 mg 04/26/25 17:08 05/12/25 17:01 Ondansetron 4 Mg/2 Ml Vial IVP 4 mg Q6HR PRN Administration Nausea / Vomiting Pantoprazole Sodium 40 mg 04/26/25 21:00 05/23/25 10:10 Pantoprazole 40 Mg Vial IVP 40 mg BID CINDY Administration Polyethylene Glycol 17 gm 04/29/25 10:32 04/29/25 17:05 Polyethylene Glycol 3350 17 Gm Packet JT 17 gm DAILY PRN Administration Bowel Protocol Sodium Chloride 10 ml 04/26/25 17:08 05/23/25 10:09 Sodium Chloride Flush 0.9% 10 Ml Syringe IVP 10 ml 0100,0900,1700 CINDY Administration Sodium Chloride 10 ml 04/26/25 17:08 05/19/25 09:08 Sodium Chloride Flush 0.9% 10 Ml Syringe IVP 10 ml PRN PRN Administration NEEDED PER PROVIDER ORDERS Zinc Oxide 113 gm 04/27/25 04:26 05/22/25 09:33 Cod Liver Oil/Zinc Oxide 113 Gm Tube TOP 1 applic PRN PRN Administration Skin Care Objective Vital Signs/Intake & Output Reviewed Vital Signs: Yes Vital Signs: Vital Signs x48h Temp Pulse Resp BP Pulse Ox 05/23/25 08:45 98.1 F 61 35 H 127/58 L 95 05/23/25 04:46 98.1 F 61 16 138/70 H 98 Intake & Output: Intake & Output 05/20/25 05/21/25 05/22/25 05/23/25 23:59 23:59 23:59 23:59 Intake Total 2575 / 2575 1439 / 1439 1056 / 1056 620 / 620 Output Total 310 / 310 950 / 950 90 / 90 Balance 2265 / 2265 489 / 489 966 / 966 595 / 595 Weight (kg) 50.5 kg 48 kg 49 kg 48.5 kg Objective General Appearance: positive No acute distress and Alert Eyes Bilateral: positive Normal inspection, PERRL and EOMI ENT: positive ENT inspection nml, Pharynx nml and No signs of dehydration Neck: positive Nml inspection, Thyroid nml and No JVD Respiratory: positive Chest non-tender, No respiratory distress and Rales (Bibasilar crackles noted, mild and improved); negative Wheezes or Rhonchi Cardiovascular: positive Regular rate & rhythm, No murmur and No gallop; negative Friction rub Abdomen: positive No distention; negative Non-tender (Mildly tender to palpation in epigastric region) or Other (Scar visible on abdomen, healing well. Gastrostomy and jejunostomy tubes present. No erythema, swelling, or exudates present around tubes.) Back: positive Nml inspection; negative CVA tenderness (R) or CVA tenderness (L) Skin: positive Color nml and No rash Extremities: positive Non-tender, Nml appearance and Pedal edema (Diffuse pitting edema, now improved. Left upper extremity more swollen than right upper extremity. Abdomen with some fluid noted.); negative Full ROM (Mild weakness of LLE and LUE to flexion and extension. No sensory deficits noted. ) Neurologic/Psychiatric: positive Oriented x3 Lab Results 05/19/25 08:46 05/19/25 08:46 Other Labs: Lab Results x24hrs 05/15/25 05/15/25 05/15/25 Range/Units 06:07 04:45 00:01 WBC 8.6 (4.8-10.8) x10^3/uL RBC 2.69 L (4.20-5.40) 10^6/uL Hgb 7.4 L (12.0-16.0) g/dL Hct 23.7 L (37.0-47.0) % MCV 88.1 (81.0-99.0) fL MCH 27.5 (27.0-31.0) pg MCHC 31.2 L (32.0-36.0) g/dL RDW 21.8 H (12.0-15.0) % Plt Count 602 H (130-450) 10^3/uL MPV 8.9 (7.9-10.8) fL APTT (24.9-33.3) secs Sodium 138 (135-145) mmol/L Potassium 3.9 (3.5-4.5) mmol/L Chloride 105 (101-111) mmol/L Carbon Dioxide 27 (21-32) mmol/L Anion Gap 6.0 (6-13) BUN 33 H (6-20) mg/dL Creatinine 0.4 L (0.6-1.3) mg/dL Estimated GFR (MDRD) 159 (>89) Glucose 151 H (74-104) mg/dL POC Whole Bld Glucose 152 128 (70-100) mg/dL Calcium 7.6 L (8.5-10.3) mg/dL Magnesium 2.2 (1.7-2.3) mg/dL 05/14/25 05/14/25 05/14/25 Range/Units 17:24 17:00 11:55 WBC (4.8-10.8) x10^3/uL RBC (4.20-5.40) 10^6/uL Hgb 7.1 L (12.0-16.0) g/dL Hct 23.3 L (37.0-47.0) % MCV (81.0-99.0) fL MCH (27.0-31.0) pg MCHC (32.0-36.0) g/dL RDW (12.0-15.0) % Plt Count (130-450) 10^3/uL MPV (7.9-10.8) fL APTT 28.9 (24.9-33.3) secs Sodium (135-145) mmol/L Potassium (3.5-4.5) mmol/L Chloride (101-111) mmol/L Carbon Dioxide (21-32) mmol/L Anion Gap (6-13) BUN (6-20) mg/dL Creatinine (0.6-1.3) mg/dL Estimated GFR (MDRD) (>89) Glucose (74-104) mg/dL POC Whole Bld Glucose 134 129 (70-100) mg/dL Calcium (8.5-10.3) mg/dL Magnesium (1.7-2.3) mg/dL Sepsis Event Note (H) Evaluation Current Stage of Sepsis: Resolved Possible source of Sepsis: positive GI tract/intra-abdominal Sepsis Criteria Sepsis Criteria: Recorded Heart Rate greater than 90 bpm, WBC count greater than 12,000 or less than 4000, MAP less than 65 mmHg, SBP less than 90 mmHg and Renal: urine output less than 0.5ml/kg/hr for 2 hours or creatinine gr Assessment/Plan Problem List (1) Perforated chronic gastric ulcer: Impression: Patient had a perforated gastric ulcer. This was too near to the pylorus to adequately close. She had a reperforation on 05/06 with Talha patch oversewn and repeat ex lap with washout. Antibiotics and antifungals discontinued on 05/13. Patient remains clinically stable since then. She is on tube feeds through J-tube and venting to her G-tube. She can take oral intake for comfort, but necessary meds and feeds going through J-tube at this time. Maysel and DEMETRIA drain removed by surgery 05/20. Per surgery, limiting to no more than 45 mL/h through her J-tube. Avoiding unnecessary medications through her J-tube as this can clog and cause it to malfunction. This morning, she had worsening abdominal pain. Surgery spoken with, repeat CT abdomen ordered, pending. (2) Gastrostomy tube present: (3) Jejunostomy tube present: (4) Complete gastric outlet obstruction: Impression: See above. (5) Status post exploratory laparotomy: Impression: See above. (6) Protein calorie malnutrition: Impression: Patient with evidence of protein calorie malnutrition. She came in with subcutaneous fat loss as well as muscle wasting. She has had low caloric intake During the early parts of her hospitalization. When eating, she was not exceeding 50% of her recommended caloric intake. Her tube feeds initially had to be stopped multiple times due to intolerance. She was briefly on TPN. Her nutrition calorie goal 1440 per nutrition. Possibly higher with her sacral ulcer and wound healing goals. Qualifiers: Protein-calorie malnutrition severity: severe Qualified Code(s): E43 - Unspecified severe protein-calorie malnutrition (7) Sacral decubitus ulcer: Impression: Technically unstageable, but eschar not fully covering and appears to be deep stage II. This was present on arrival. It is progressed from a stage I to a stage II. Continue offloading, to the chair as frequently as possible. Continue rehab working with PT. Nutrition as above. Continue daily dressing changes, this will need to be continued at SNF. Qualifiers: Pressure injury stage: stage 2 Qualified Code(s): L89.152 - Pressure ulcer of sacral region, stage 2 (8) Septic shock: Impression: Resolved, remained normotensive. Patient had a mix of septic and hypovolemic shock. She received meropenem on 05/07 after clinical deterioration while on Zosyn. She completed a 7-day course of antibiotics after her reperforation on 05/06. Has been off of antimicrobials and antifungals since 05/13. Has been off of pressors since around 05/11. Central line removed 05/17. (9) Anemia: Impression: Resolved. No further signs of blood loss. Hemoglobins remained stable around 9. Previous hospitalist discussed with family extensively, she has not tolerated anticoagulation at this point with multiple bleeding episodes, hematuria. Anticoagulation was discontinued altogether on 05/16. This was discussed with family and they are in agreement. She is at risk for recurrent stroke, but the risk-benefit favors discontinuing anticoagulation at this time. Last transfusion received on 05/16. Improved hemoglobin. Qualifiers: Anemia type: unspecified type Qualified Code(s): D64.9 - Anemia, unspecified (10) Urinary retention: Impression: Resolved. Patient began to demonstrate acute urinary retention on 05/16. Had episodes of hematuria over the preceding days. Most at risk for clot obstruction. Continue to monitor with bladder protocol. (11) HFrEF (heart failure with reduced ejection fraction): Impression: Stable. Electrolytes remain normal, creatinine remains normal. Patient is now appearing more euvolemic. She has been retaining fluid throughout this admission, very tenuous fluid status. Multiple boluses of fluid with her episodes of shock. TTE performed this hospitalization with a EF 45 to 50% and associated tricuspid and mitral regurgitation with moderate pulmonary hypertension. Continue oral Lasix 40 mg qd indefinitely. (12) Acute metabolic encephalopathy: Impression: Resolved. Had encephalopathy shortly after 1st surgery. Code stroke was called but no intracranial hemorrhage or new focal deficits noted. She has a history of prior CVA as below. There is extensive encephalomalacia. Teleneurology was consulted, and EEG was recommended if she remained encephalopathic however she cleared. They did recommend continuing her on Keppra 500 mg twice daily. (13) Cerebrovascular accident (CVA): Impression: With persistent and baseline left-sided deficits and left upper extremity contracture. On Keppra as above. Etiology of stroke likely embolic in the setting of her A-fib. Not on statin historically. At risk for recurrent stroke with out being on anticoagulation, but unable to tolerate Anticoagulation as above. Discussed earlier this admission whether she needs any muscle relaxers for chronic contracture. She declined. Says she is comfortable. PT as above. Qualifiers: CVA mechanism: thrombosis Laterality of affected vessel: right P recerebral and cerebral artery: middle cerebral artery Qualified Code(s): I 63.311 - Cerebral infarction due to thrombosis of right middle cerebral artery (14) Metabolic acidosis: Impression: Resolved. Patient had a profound metabolic acidosis, likely as a result of her septic state, worsening lactic acid, etc. ABG prior to intubation went 7.2-7.1. She was intubated overnight from 05/07 to 05/08. Extubated on 05/09. (15) Afib: Impression: Rate controlled currently. On telemetry, she has had some runs of RVR. Normally on Eliquis and metoprolol Succinate 25 mg. She has a pacemaker with pacer leads apparent on telemetry and previous EKGs. Working appropriately. Will continue metoprolol tartrate 12.5 mg BID through J-tube. Minimal hemodynamic effect but was having significant ectopy when it was held. Qualifiers: Atrial fibrillation type: unspecified Qualified Code(s): I48.91 - Unspecified atrial fibrillation (16) Diabetes mellitus: Impression: Seemingly diet controlled. Last A1c of 5.1%. Qualifiers: Diabetes mellitus complication status: without complication Diabetes mellitus oysterman insulin use: without oysterman use Diabetes mellitus type: t ype 2 Qualified Code(s): E11.9 - Type 2 diabetes mellitus without complications
--- NOTE | 2025-05-23 14:31 | CT Report ---
PROCEDURE: CT Abdomen/Pelvis WO INDICATIONS: Increased abdominal pain TECHNIQUE: A CT scan of the abdomen and pelvis was performed without the use of intravenous contrast. Images were recorded and evaluated at appropriate window settings. Reformats: coronal and sagittal. For radiation dose reduction, the following was used: automated exposure control, adjustment of mA and/or kV according to patient size. COMPARISON: CT abdomen/pelvis 05/03/2025 FINDINGS: Image quality: Diagnostic. Lower chest: Cardiomegaly. Pacemaker leads are present. Small bilateral pleural effusions with bibasilar atelectasis. Liver: No contour-deforming mass. Gallbladder: Mildly contracted. No radiopaque stones or wall thickening. Biliary tree: No intrahepatic or extrahepatic dilation, accounting for age. Spleen: No splenomegaly. Pancreas: No pancreatic ductal dilation. Adrenals: No adrenal nodule. Kidneys and ureters: No hydronephrosis. No contour-deforming mass. Stomach, bowel and peritoneum: Percutaneous gastrostomy tube is present. Stomach is moderately distended with fluid. Postsurgical changes again seen at the distal stomach. Percutaneous jejunostomy tube is also seen in the left upper quadrant in appropriate position. Small bowel loops are nondilated. Liquid stool material is seen in the colon and rectum. Previously seen right abdominal percutaneous drain has been removed. Trace free fluid in the pelvis. Trace free air is seen adjacent to the left hepatic lobe. Lymph nodes: No central or retroperitoneal adenopathy. Vessels: No infrarenal aortic aneurysm. Reproductive organs: Unremarkable. Bladder: No abnormal bladder wall thickening. No calcified bladder stones. Small focus of gas in the nondependent portion of the bladder. Pelvic lymph nodes: No adenopathy by size criteria. Bones: No aggressive osseous abnormality. Mild L5 and T11 vertebral body compression fractures appear unchanged. No acute osseous abnormality. Generalized osteopenia. Other: Generalized soft tissue anasarca, mildly decreased when compared to the prior CT. Small mildly hyperdense fluid collection in the subcutaneous tissues just inferior to the umbilicus measuring 4.3 x 2.8 x 1.1 cm may represent a small hematoma. IMPRESSION: 1. Postsurgical changes redemonstrated to the stomach with percutaneous gastrostomy and percutaneous jejunostomy tubes in expected positions and interval removal of right sided percutaneous drain. Focal trace free air in the right upper quadrant adjacent to the liver is of uncertain etiology and may be secondary to resolving postsurgical changes (especially if the percutaneous drain was recently removed) versus leakage around a percutaneous tube site or at the surgical site. 2. Small hyperdense subcutaneous fluid collection just inferior to the umbilicus may represent a small postsurgical hematoma. 3. Diffuse soft tissue anasarca. Small bilateral pleural effusions. Cardiomegaly. 4. Small focus of air in the bladder, likely related to of recent instrumentation versus infection with a gas-forming organism. Reviewed by: George Lutz MD on 05/23/2025 2:28 PM PDT Approved by: George Lutz MD on 05/23/2025 2:28 PM PDT Station ID: [id number]
[2025-05-24 06:06] LABS: HCT - HEMATOCRIT 29.3 % (37.0-47.0); HGB - HEMOGLOBIN 8.6 g/dL (12.0-16.0); MEAN PLATELET VOLUME 8.5 fL (7.9-10.8); PLT - PLATELET COUNT 489.0 10^3/uL (130-450); RED CELL DISTRIBUTION WIDTH 19.7 % (12.0-15.0)
[2025-05-24 06:23] LABS: BUN - BLOOD UREA NITROGEN 40.0 mg/dL (6-20); CARBON DIOXIDE - CO2 29.0 mmol/L (21-32); CREATININE 0.5 mg/dL (0.6-1.3); GFR - MDRD 123.0 (>89)
--- NOTE | 2025-05-24 11:46 | PROVIDER PROGRESS NOTE ---
Subjective General Admit Date: 04/26/25 Procedure Date: 04/26/25 Post Op Days: 28 Procedure Performed: ExLap, Talha patch, Pyloric Exclusion, Gtube/Jtube Other Other Information/Narrative: Doing well today, tolerating tube feeds at goal, having bowel function, tolerating sips of apple juice, incision healing well. Wound Assessment Wound/Incisions: positive Healing well (The wound is intact without evidence of herniation or infection.) Review of Systems Status of ROS: 10 or more systems reviewed and unremarkable except as noted in history and below Exam Exam Vital Signs: Vital Signs x48h Temp Pulse Resp BP BP Pulse Ox 05/24/25 09:06 143/65 H 05/24/25 08:17 36.9 C 61 16 143/65 H 96 05/24/25 05:45 36.8 C 61 18 127/59 L 97 Constitutional no apparent distress HENMT normocephalic and head/scalp atraumatic Eyes conjunctivae normal and no scleral icterus Neck/C-Spine visual inspection normal Respiratory normal respiratory effort Cardiovascular normal heart rate noted and regular rhythm noted Gastrointestinal abdomen soft to palpation Appropriately TTP, incision appears to be healing appropriately, feeding J tube and G tube in situ without surrounding erythema. Extremities normal to inspection Psychiatry thought process normal and cooperative Skin skin color normal Impression/Plan Problem List (1) Perforated chronic gastric ulcer: Plan: 69y/o F admitted with perforated pyloric ulcer. POD # 28, Exploratory laparotomy, oversew/Talha patch perforated pyloric ulcer, gastric exclusion (stapled), gastrostomy tube placement, jejunostomy tube placement (04/26) - Dr. Odell POD #18, Exploratory laparotomy, oversew/Talha patch of ulcer repair site leak, abdominal cavity washout (05/06) - Dr. Lehman H/o Afib on Eliquis with pacemaker, Echo this admission with EF 45-50%. Hospital course has been notable for tenuous volume status between significant third spacing and edema/anasarca as well as intravascular hypovolemia. On and off pressors during the first week. Transient AMS/delirium after ativan concerning for recurrent CVA, but imaging demonstrated only her old CVA lesion. Significant blood loss from RIJ CVC requiring multiple blood products to correct the resultant coagulopathy/hemolysis. Recurrent bleeding issues with anticoagulation or chemoppx for DVT. 1) ID - Sepsis resolved. Completed antibiotics. - DEMETRIA drain removed (05/20); mepilex placed over drain site. - G tube to dependent drainage (OK for sips or fulls for comfort - will drain via G tube). - J tube for tube feeds, NO PILLS, NO CRUSHED PILLS. 2) Heme - Hgb stable. Not resuming anticoagulation given recurrent bleeding issues this admission (shared decision making with patient, family) DVT ppx with SCDs only. 3) Renal - ARF resolved. Need to monitor for adequate hydration given volume limitation of FWF via J tube; patient has not required IVF for last week. 4) FEN - Tolerating TF at goal rate well at this point. - TF formula no higher than 45mL/hr. - Pills (even crushed ones) should NOT go through a J tube - Check nutrition parameters weekly. 5) VTEP - SCDs only. 6) Pulmonary - improved, now on RA 7) Activity - Aggressive PT and OT is required. Pending SNF placement. Patient was ambulatory at home with a walker prior to admission. 8) Wound - eleno out/reinforced with steristrips. Scant old blood draining from 5mm opening at inferior aspect of wound - change gauze PRN. 9) Dispo - Planning for d/c to SNF per primary, already has follow up with Dr. Odell for Thursday General surgery will continue to follow closely. (2) Gastrostomy tube present: (3) Jejunostomy tube present: (4) Complete gastric outlet obstruction: (5) Status post exploratory laparotomy: (6) Protein calorie malnutrition: Qualifiers: Protein-calorie malnutrition severity: severe Qualified Code(s): E43 - Unspecified severe protein-calorie malnutrition (7) Sacral decubitus ulcer: Qualifiers: Pressure injury stage: stage 2 Qualified Code(s): L89.152 - Pressure ulcer of sacral region, stage 2 (8) Septic shock: (9) Anemia: Qualifiers: Anemia type: unspecified type Qualified Code(s): D64.9 - Anemia, unspecified (10) Urinary retention: (11) HFrEF (heart failure with reduced ejection fraction): (12) Acute metabolic encephalopathy: (13) Cerebrovascular accident (CVA): Qualifiers: CVA mechanism: thrombosis Laterality of affected vessel: right Precerebral and cerebral artery: middle cerebral artery Qualified Code(s): I63.311 - Cerebral infarction due to thrombosis of right middle cerebral artery (14) Metabolic acidosis: (15) Afib: Qualifiers: Atrial fibrillation type: unspecified Qualified Code(s): I48.91 - Unspecified atrial fibrillation (16) Diabetes mellitus: Qualifiers: Diabetes mellitus type: type 2 Diabetes mellitus group home insulin use: without termite treater use Diabetes mellitus complication status: without complication Qualified Code(s): E11.9 - Type 2 diabetes mellitus without compli cations
--- NOTE | 2025-05-24 11:57 | Discharge Summary ---
"Discharge Summary Admit Date: 04/26/25 Discharge Date: 05/24/25 Discharging Provider: Dr. Kimberly Flores Primary Care Provider: Dr. Ceballos Code Status: Do Not Attempt Resuscitation Discharge Facility Name: [facility] DIAGNOSES Discharge Diagnoses with Status of Each Condition: Perforated chronic gastric ulcer Patient had a perforated gastric ulcer. This was too near to the pylorus to adequately close. She had a reperforation on 05/06 with Talha patch oversewn and repeat ex lap with washout. Antibiotics and antifungals discontinued on 05/13. Patient remains clinically stable since then. She is on tube feeds through J-tube and venting to her G-tube. She can take oral intake for comfort, but necessary meds and feeds going through J-tube at this time. [place] and DEMETRIA drain removed by surgery 05/20. Per surgery, limiting to no more than 45 mL/h through her J-tube. Avoiding unnecessary medications through her J-tube as this can clog and cause it to malfunction. Gastrostomy tube present, jejunostomy tube present, complete gastric outlet obstruction See above. Protein calorie malnutrition Patient with evidence of protein calorie malnutrition. She came in with subcutaneous fat loss as well as muscle wasting. She has had low caloric intake During the early parts of her hospitalization. When eating, she was not exceeding 50% of her recommended caloric intake. Her tube feeds initially had to be stopped multiple times due to intolerance. She was briefly on TPN. Her nutrition calorie goal 1440 per nutrition. Sacral decubitus ulcer Technically unstageable, but eschar not fully covering and appears to be deep stage II. This was present on arrival. It is progressed from a stage I to a stage II. Continue offloading, to the chair as frequently as possible. Continue rehab working with PT. Nutrition as above. Continue daily dressing changes, this will need to be continued at SNF. Septic shock Resolved, remained normotensive. Anemia Resolved. No further signs of blood loss. Hemoglobins remained stable around 8-9. Previous hospitalist discussed with family extensively, she has not tolerated anticoagulation at this point with multiple bleeding episodes, hematuria. Anticoagulation was discontinued altogether on 05/16. This was discussed with family and they are in agreement. She is at risk for recurrent stroke, but the risk-benefit favors discontinuing anticoagulation at this time. Urinary retention Resolved. Patient began to demonstrate acute urinary retention on 05/16. Had episodes of hematuria over the preceding days. Gordon now removed. Most at risk for clot obstruction. Continue to monitor with bladder protocol. HFrEF (heart failure with reduced ejection fraction) Stable. Electrolytes remain normal, creatinine remains normal. Patient is now appearing more euvolemic. She has been retaining fluid throughout this admission, very tenuous fluid status. TTE performed this hospitalization with a EF 45 to 50% and associated tricuspid and mitral regurgitation with moderate pulmonary hypertension. Continue oral Lasix 40 mg qd indefinitely. Acute metabolic encephalopathy Resolved. Had encephalopathy shortly after first surgery. Code stroke was called but no intracranial hemorrhage or new focal deficits noted. She has a history of prior CVA as below. There is extensive encephalomalacia. Teleneurology was consulted, and EEG was recommended if she remained encephalopathic however she cleared. They did recommend continuing her on Keppra 500 mg twice daily. Cerebrovascular accident (CVA) With persistent and baseline left-sided deficits and left upper extremity contracture. On Keppra as above. Etiology of stroke likely embolic in the setting of her A-fib. Not on statin historically. At risk for recurrent stroke with out being on anticoagulation, but unable to tolerate Anticoagulation as above. Metabolic acidosis Resolved. Patient had a profound metabolic acidosis, likely as a result of her septic state, worsening lactic acid, etc. ABG prior to intubation went 7.2-7.1. She was intubated overnight from 05/07 to 05/08. Extubated on 05/09. Afib Rate controlled currently. On telemetry, she has had some runs of RVR. Normally on Eliquis and metoprolol Succinate 25 mg. She has a pacemaker with pacer leads apparent on telemetry and previous EKGs. Working appropriately. Will continue metoprolol tartrate 12.5 mg BID through J-tube. Minimal hemodynamic effect but was having significant ectopy when it was held. Diabetes mellitus Seemingly diet controlled. Last A1c of 5.1%. HPI History of Present Illness: Patient is a 69-year-old female with a history of atrial fibrillation on Eliquis, permanent pacemaker, GERD who initially presented for abdominal pain. Per patient, this has been going on for the better part of a year, but worsened acutely in the last 3 days. She describes it as sharp, located in the center of her abdomen, with no radiation. She also endorses nausea, as well as a few episodes of nonbloody, nonbilious emesis over the last few days. In the last year, she has lost about 100 pounds. She states that she does not feel like eating, and when she does eat, she experiences the pain. She was prescribed what sounds like Protonix or Prilosec by her PCP, which she states worsened the pain. She has never had a colonoscopy or an EGD done before. She did come here in 01/25, and ER notes were reviewedat that time, she had presented with upper abdominal pain, and nausea. She had recently gone to [facility] at that time, and a CT abdomen pelvis were done there, which showed no acute findings per the patient. She did have an anemia at that time was 7.6, and she was advised to follow-up closely and get a colonoscopy and possible EGD done in the outpatient, which she had not done yet. In the ER, she was vitally stablenormotensive, heart rate of 60, paced rhythm, respiratory rate between 14-15, saturating 100% on room air. She was also afebrile. 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 She was taken emergently to the ORthis revealed a near obstructing pyloric mass that was involving the distal hepatic ligament. Fluid cultures were taken, as well as a biopsy of this mass. The perforated ulcer was repaired with a Talha patch, and a gastrostomy tube was placed, as well as jejunostomy tube. She was transferred to the ICU for closer monitoring in stable condition without any need for pressor support. She was started on Zosyn, vancomycin, fluconazole. She was waking up appropriately, and was able to provide the above history after surgery. Past medical history includes vry-[id number]-nsdrlfmuf diabetes mellitus, diet controlled at this time. She also has atrial fibrillation for which she takes Eliquis inconsistently. She has not been taking this for the past 2 weeks because it made her stomach pain worse. She has a pacemaker in place. Medications include metoprolol and Eliquis. Allergies include morphine and sulfa drugs, both of which give her a rash. She has no surgical history. She denies any current alcohol, tobacco, recreational drug use. She does have history of former tobacco use. She lives with her son. She has six kids. Prior to this year, she was relatively active. Now, she uses a wheelchair to alternate between the bathroom and her bed, and spends most day in bed. CONSULTS | PROCEDURES Consultations: General surgery, PT, Nutrition, social work Procedures: Abdomen/pelvis CT x 3, chest CT, head CT, CT angiogram, abdominal x-ray, abdominal x-ray, chest x-ray x 9, exploratory laparotomy x 2 HOSPITAL COURSE Hospital Course: Patient is a 69-year-old female with a history of CVA with chronic left-sided weakness, contractures, atrial fibrillation on Eliquis who had presented with abdominal pain on 04/26. She was found to have a perforated gastric ulcer and was taken to the OR. On 04/26, she had an exploratory laparotomy with Talha patch repair of perforated gastric ulcer, G-tube placement, J-tube placement. A large mass was found near the opening of the pylorus, and was biopsiedthis did come back negative for malignancy. Her course was complicated by a repeat perforation which required a repeat exploratory laparotomy on 05/06. The duodenal ulcer was oversewn, and abdominal washout was completed. She also experienced shock, which was likely mixed, hypovolemic as well as septic shock. She received a 7-day course of IV Zosyn, Diflucan. She required vasopressor support during this portion of her stay, and a central line and arterial line were used for close monitoring and safe administration. This was weaned off. Additionally, after second exploratory laparotomy, she was intubated for 24 to 48 hours after the operation. She was extubated safely onto room air. Her course was also complicated by anemia, attributed to acute blood loss, worsened with resumption of her anticoagulation, first with heparin, and then with Eliquis. Risks and benefits were discussed with the patient and her family, and we have elected to hold her anticoagulation indefinitely. For nutrition, she was started on TPN initially, and then tube feeds were started and increased to goal slowly. She is tolerating them well now. She was already largely debilitated due to her previous CVA, this was worsened by her extensive hospital course. Physical therapy did evaluate the patient, and recommended SNF on DC. Patient has been stable for many days. Plan is extensive rehab, then patient will likely go home with good family support. She will need close and continued follow-up with general surgery, and will need to establish care with the colorectal surgeon in the outpatient. 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 ALLERGIES Allergies Allergy/AdvReac Type Severity Reaction Status Date / Time morphine Allergy Rash Verified 04/26/25 07:21 sulfamethoxazole (From Allergy Rash Verified 04/26/25 07:21 Sept) trimethoprim (From ) Allergy Rash Verified 04/26/25 07:21 MEDICATIONS Ambulatory Orders Medication Instructions Recorded Confirmed furosemide 40 mg tablet 40 mg J-tube DAILY #30 tabs 05/24/25 levetiracetam 500 mg/5 mL (5 mL) 500 mg (5 mL) J-tube BID 30 days 05/24/25 oral solution #300 mL metoprolol tartrate 25 mg tablet 12.5 mg (1/2 x 25 mg) J-tube BID 05/24/25 #30 tabs omeprazole magnesium 10 mg oral 20 mg PO BID #60 ea suspension,delayed release PHYSICAL EXAM AT DISCHARGE Vital Signs: Vital Signs x48h Temp Pulse Resp BP BP Pulse Ox 05/24/25 14:14 99.0 F 61 16 137/63 H 97 05/24/25 12:56 98.8 F 65 24 114/55 L 95 05/24/25 09:06 143/65 H 05/24/25 08:17 98.4 F 61 16 143/65 H 96 General Appearance: positive No acute distress and Alert Eyes Bilateral: positive Normal inspection, PERRL and EOMI ENT: positive ENT inspection nml, Pharynx nml and No signs of dehydration Neck: positive Nml inspection, Thyroid nml and No JVD Respiratory: positive Chest non-tender, No respiratory distress and Rales (Bibasilar crackles noted, mild and improved); negative Wheezes or Rhonchi Cardiovascular: positive Regular rate & rhythm, No murmur and No gallop; negative Friction rub Abdomen: positive No distention; negative Non-tender (Mildly tender to palpation in epigastric region) or Other (Scar visible on abdomen, healing well. Gastrostomy and jejunostomy tubes present. No erythema, swelling, or exudates present around tubes.) Back: positive Nml inspection; negative CVA tenderness (R) or CVA tenderness (L), stage II sacral ulcer noted Skin: positive Color nml and No rash Extremities: positive Non-tender, Nml appearance and Pedal edema (mild); negative Full ROM (Mild weakness of LLE and LUE to flexion and extension. No sensory deficits noted. ) Neurologic/Psychiatric: positive Oriented x3 LABS 05/24/25 06:01 05/24/25 06:01 SEPSIS Current Stage of Sepsis: Resolved Possible source of Sepsis: GI tract/intra-abdominal Sepsis Criteria: Recorded Heart Rate greater than 90 bpm, WBC count greater than 12,000 or less than 4000, MAP less than 65 mmHg, SBP less than 90 mmHg and Renal: urine output less than 0.5ml/kg/hr for 2 hours or creatinine gr FOLLOW UP Follow Up: Follow-up with general surgery. Follow-up with cardiology. Follow-up with colorectal surgeon. Follow-up with primary care provider. TIME SPENT Time Spent in Discharge (Minutes): 35 Discharge Plan Discharge Patient Disposition: [facility] DC/Xfer Condition: Stable Prescriptions: New furosemide 40 mg Tablet 40 mg J-tube DAILY Qty: 30 0RF levetiracetam 500 mg/5 mL (5 mL) Solution 500 mg J-tube BID 30 Days Qty: 300 0RF metoprolol tartrate 25 mg Tablet 12.5 mg J-tube BID Qty: 30 0RF omeprazole magnesium 10 mg susp,delayed release for recon 20 mg PO BID Qty: 60 0RF Discontinued lisinopril 2.5 mg tablet 2.5 mg PO DAILY metoprolol succinate 25 mg tablet extended release 24 hr 25 mg PO DAILY Patient Comments: take 1 tablet by mouth once daily Eliquis 5 mg tablet 5 mg PO BID Activity Restrictions: Activity as Tolerated Health Concerns: You came in because you were having abdominal pain. You were found to have a perforated ulcer. You had 2 surgeries to correct this. This resulted in 2 different tubes. One tube, called your G-tube is connected to your stomach. Anything you eat will be coming out of this tube. As such, as we have talked about, we would like you to stick with liquids that you would like to eat for pleasure. You will not get any nutritional value from this as it will be taken out from your G-tube. You also have another tube, called a J-tube, which is connected to a part of your small intestine. This is where you are receiving your tube feeds, and all your nutrition. As you know, your stay was complicated by a possible infection due to this perforation. You required many days of antibiotics and antifungal medication. You also required life-saving medication to bring up your blood pressure, and you were connected to a ventilator for short period of time. Even one day in the hospital can cause significant deconditioning and muscle weakness. You have been here for almost a whole month. As such, it is going to take some time to heal appropriately and get stronger. Your surgical site looks good, and your incision is healing well. You will now be going to a rehabilitation facility to get stronger. Some medication changes to note are the following: We discussed your Eliquis, or your blood thinner. Unfortunately, every time we tried to restart it, you had a bleeding episode, whether this was in your urine or your wounds or your IV lines. We talked about the benefits and the risks of stopping this medication, and have decided to hold it indefinitely. We will also be discharging you home on Lasix, or furosemide, which is a water pill to help keep you nice and dry. While you were here, you had some episodes of confusion. We spoke with the neurologist with your history of a stroke, and she reviewed your images, and recommended starting an antiseizure medication called Keppra. As your stroke was quite large, this increases the risk of seizures in the future, and this medication should help prevent them. It has been a very long month for you, but I can see how loved you are and how much support you have all around you. Your kids are all kory people and it has been a pleasure to get to know them, as well as you, in our short time together. We are so glad you're feeling better. Thank you for allowing us to take care of you. Best of luck in your continued recovery. Print Language: Salvadorean Patient Instructions: Surg Dc Stand Alone Forms: SNF Discharge, PCP List Follow-up Care: Ro Odell DO [Provider Admit Priv/Credential, Surgery, General] - 05/29/25 11:15 am Report called to and time (if no answer, doc. time of each call attempted): [address] [place] Vitals documented within 30 minutes of discharge?: Yes"
[2025-05-24 14:17] VITALS: BP 137/63; TEMP 99; O2SAT 97
== END 2025-05-24 14:20 | DRG 326 ==
LOC: ED 07:05 → SDS 12:11 → ICU 16:23 → SUATTDRO 16:23 → MS3 05-19 23:41
PROVIDERS: ADMIT Surgery; ATTEND Student in an Organized Health Care Education/Training Program
DX: K25.5 Chronic or unspecified gastric ulcer with perforation; K55.1 Chronic vascular disorders of intestine; K21.9 Gastro-esophageal reflux disease without esophagitis; R33.9 Retention of urine, unspecified; R45.1 Restlessness and agitation; Z95.0 Presence of cardiac pacemaker; K59.00 Constipation, unspecified; I08.1 Rheumatic disorders of both mitral and tricuspid valves; Z88.5 Allergy status to narcotic agent; R41.0 Disorientation, unspecified; I10 Essential (primary) hypertension; D62 Acute posthemorrhagic anemia; I50.20 Unspecified systolic (congestive) heart failure; E87.20 Acidosis, unspecified; K31.1 Adult hypertrophic pyloric stenosis; I69.354 Hemiplegia and hemiparesis following cerebral infarction affecting left non-dominant side; E87.1 Hypo-osmolality and hyponatremia; Z79.01 Long term (current) use of anticoagulants; R16.0 Hepatomegaly, not elsewhere classified; Z93.4 Other artificial openings of gastrointestinal tract status; R31.9 Hematuria, unspecified; L76.22 Postprocedural hemorrhage of skin and subcutaneous tissue following other procedure; Z88.2 Allergy status to sulfonamides; Z93.1 Gastrostomy status; T82.838A Hemorrhage due to vascular prosthetic devices, implants and grafts, initial encounter; K31.9 Disease of stomach and duodenum, unspecified; L89.152 Pressure ulcer of sacral region, stage 2; I69.398 Other sequelae of cerebral infarction; K66.8 Other specified disorders of peritoneum; E78.5 Hyperlipidemia, unspecified; I95.9 Hypotension, unspecified; L89.151 Pressure ulcer of sacral region, stage 1; E87.5 Hyperkalemia; Z87.891 Personal history of nicotine dependence; Z66 Do not resuscitate; E87.70 Fluid overload, unspecified; E43 Unspecified severe protein-calorie malnutrition; Z68.1 Body mass index [BMI] 19.9 or less, adult; I48.91 Unspecified atrial fibrillation; E11.9 Type 2 diabetes mellitus without complications; Z99.3 Dependence on wheelchair; I27.20 Pulmonary hypertension, unspecified; G93.89 Other specified disorders of brain; D64.9 Anemia, unspecified; A41.9 Sepsis, unspecified organism; N17.9 Acute kidney failure, unspecified; G93.41 Metabolic encephalopathy; R18.8 Other ascites; R63.4 Abnormal weight loss; T81.19XA Other postprocedural shock, initial encounter; J96.90 Respiratory failure, unspecified, unspecified whether with hypoxia or hypercapnia; R53.1 Weakness; K65.8 Other peritonitis; F41.9 Anxiety disorder, unspecified; R63.0 Anorexia; F41.0 Panic disorder [episodic paroxysmal anxiety]; I11.0 Hypertensive heart disease with heart failure; R65.21 Severe sepsis with septic shock; A09 Infectious gastroenteritis and colitis, unspecified